=== PATIENT | female | born 1935 | race Caucasian/White ===

== ENCOUNTER 2016-03-22 17:53 | Inpatient (IN) | payer MEDICARE, BC ==
[2016-03-22] MEDS ORDERED: LEVALBUTEROL NEB (CONC) 1.25 MG/0.5 ML AMP INHALATION STA (18:18)
[2016-03-22] MEDS ORDERED: IPRATROPIUM 0.5 MG/2.5 ML NEBU INHALATION STA (18:36)
[2016-03-22] MEDS ORDERED: LEVALBUTEROL NEB 1.25 MG/3 ML AMP INHALATION STA ×2 (18:36→19:58)
[2016-03-22] MEDS ORDERED: methylPREDNISolone SOD SUCCI 125 MG/2 ML VIAL IV STA (18:36)
[2016-03-22] MEDS ORDERED: LEVOFLOXACIN 750MG-D5W PMX 750 MG in DEXTROSE/WATER 1 150ML.BAG IVPB STA (18:36)
[2016-03-22] MEDS ORDERED: ASPIRIN 81 MG CHEW PO STA (18:38)
[2016-03-22] MEDS ORDERED: NITROGLYCERIN OINT 1 INCH/GM PACKET TOPICAL STA (18:39)
[2016-03-22] MEDS ORDERED: FUROSEMIDE 10 MG/ML 4 ML VIAL IV STA (18:39)
[2016-03-22] MEDS ORDERED: DILTIAZEM 125 MG in SODIUM CHLORIDE 0.9% 100 ML IV ONE (18:39)
[2016-03-22 18:55] LABS: Basophils # (A) 0.1 k/uL (0-0.2); Basophils % (A) 1 %; CH 30.4; CHCM 33.1; Eosinophils # (A) 0.1 k/uL (0-0.7); Eosinophils % (A) 1 %; HCT 52.8 % (34.0-46.0); HDW 2.45; HGB 17.4 gm/dL (11.4-16.0); Luc # (Auto) 0.24; Luc % (Auto) 2; Lymphocytes # (A) 1.4 k/uL (1.0-4.8); Lymphocytes % (A) 13 %; MCH 30.4 pg (25.0-35.0); MCV 92.3 fL (80.0-100.0); Mean Platelet Volume 6.9; Monocytes # (A) 0.6 k/uL (0-1.0); Monocytes % (A) 6 %; Neutrophils # (A) 8.3 k/uL (1.3-7.7); Neutrophils % (A) 77 %; RBC 5.72 m/uL (3.80-5.40); RDW 14.4 % (11.5-15.5); WBC 10.8 k/uL (3.8-10.6); WBC (Perox) 11.11
[2016-03-22] MEDS: MAGNESIUM SULFATE-D5W PMX 1 GM in DEXTROSE/WATER 1 100ML.BAG IVPB SCH ×2 (19:02→20:36)
[2016-03-22 19:05] LABS: Calcium 9.5 mg/dL (8.4-10.2); Magnesium 2.1 mg/dL (1.6-2.3); Potassium 4.4 mmol/L (3.5-5.1); Total Bilirubin 0.9 mg/dL (0.2-1.3); Total Protein 7.4 g/dL (6.3-8.2)
--- NOTE | 2016-03-22 19:18 | XR ---
EXAMINATION TYPE: XR chest 1V portable DATE OF EXAM: 03/22/2016 6:49 PM COMPARISON: NONE HISTORY: Dyspnea TECHNIQUE: Single frontal view of the chest is obtained. FINDINGS: There is no focal air space opacity, pleural effusion, or pneumothorax seen. The cardiac silhouette size is within normal limits. The osseous structures are intact. IMPRESSION: No acute process.
[2016-03-22 19:24] LABS: INR 1.3 (<1.1); Partial Thromboplastin Time 26.6 sec (22.0-30.0)
[2016-03-22 19:32] LABS: Creatine Kinase MB 2.1 ng/mL (0.0-2.4); Troponin I 0.018 ng/mL (0.000-0.034)
[2016-03-22] MEDS ORDERED: MORPHINE SULFATE 2 MG/ML SYRINGE IVP STA (19:58)
--- NOTE | 2016-03-22 22:22 | ED ---
SOB HPI - General Chief Complaint: Shortness of Breath Stated Complaint: Poss Pneumonia Time Seen by Provider: 03/22/16 18:30 Source: patient Mode of arrival: wheelchair Limitations: no limitations - History of Present Illness Initial Comments: This 80-year-old white female presents with a complaint of some shortness of breath. She states that it came on yesterday. She's had a cough with clear production. She denies any fever or chest pain. Today she had severe shortness of breath and even conversational dyspnea with wheezing. She does have a long history of pneumonia as well as COPD. She also said some lower extremity swelling/edema but no pain. She does take home nebulized treatments with some relief. She does not smoke tobacco anymore. She does have a history of atrial fibrillation and also presents with a 2 fibrillation with rapid ventricular response. Her pulse ox on arrival is 93%. She also complains of occasional pain to her left upper abdomen. No other complaints or modifying factors. - Related Data Home Medications Medication Instructions Recorded Confirmed Atenolol [Tenormin] 25 mg PO DAILY 02/13/14 03/22/16 Ezetimibe/Simvastatin [Vytorin 1 tab PO DAILY 02/13/14 03/22/16 10-20 mg Tablet] amLODIPine [Norvasc] 5 mg PO DAILY 02/13/14 03/22/16 Warfarin [Coumadin] 2 mg PO Q48H 08/29/15 03/22/16 Gabapentin [Neurontin] 100 mg PO BID 11/14/15 03/22/16 Warfarin Sodium [Warfarin Sodium] 1 mg PO Q48H 11/14/15 03/22/16 Benzonatate [Tessalon Perles] 100 mg PO BID PRN 03/22/16 03/22/16 Furosemide [Lasix] 40 mg PO DAILY 03/22/16 03/22/16 Allergies Allergy/AdvReac Type Severity Reaction Status Date / Time No Known Allergies Allergy Verified 03/22/16 18:11 Review of Systems ROS Statement: Those systems with pertinent positive or pertinent negative responses have been documented in the HPI. ROS Other: All systems not noted in ROS Statement are negative. Past Medical History Past Medical History: Atrial Fibrillation, Chest Pain / Angina, Heart Failure, COPD, CVA/TIA, Deep Vein Thrombosis (DVT), Hyperlipidemia, Hypertension, Pneumonia Additional Past Medical History / Comment(s): Hx. 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, PAST HX TIA 1991, URINARY INCONTINENCE, ABD HERNIA,DIVERTICULITIS, had stroke 02-13-14-still some left sided weakness History of Any Multi-Drug Resistant Organisms: None Reported Past Surgical History: Adenoidectomy, Appendectomy, Breast Surgery, Heart Catheterization, Hysterectomy, Tonsillectomy Additional Past Surgical History / Comment(s): CATARACTS-LENS IMPLANTS, CYSTOCELE/RECTOCELE AND HOLE IN BOWEL REPAIRED, LT HAND THUMB SX, BREAST BIOPSY- NEG Past Anesthesia/Blood Transfusion Reactions: No Reported Reaction Past Psychological History: Anxiety Additional Psychological History / Comment(s): related to procedure Smoking Status: Former smoker Past Alcohol Use History: None Reported Additional Past Alcohol Use History / Comment(s): 1/2 PPD Past Drug Use History: None Reported - Past Family History Father Family Medical History: Cancer, Myocardial Infarction ([place]) Additional Family Medical History / Comment(s): ANEURYSMS, BONE CA. AGE 75 FROM ANEURYSM IN HEAD Mother Family Medical History: Congestive Heart Failure (CHF) Additional Family Medical History / Comment(s): AT AGE 84 General Exam - General Exam Comments Initial Comments: GENERAL: The patient is well nourished and well hydrated. VITAL SIGNS: Heart rate, blood pressure, respiratory rate reviewed as recorded in nurse's notes. EYES: Pupils are round and reactive. Extraocular movements are intact. No conjunctival / lid redness or swelling. ENT: No external evidence of injury, swelling, or ecchymosis. Airway is patent. Throat is clear. NECK: Nontender. No swelling or evidence of injury. No subcutaneous emphysema. Trachea is midline. No thyroid mass. HEART: Regular rate and rhythm. Good peripheral pulses. LUNGS/CHEST: There is wheezing noted to the bilateral chest which is fairly significant. Patient is tachypneic. No ecchymosis, subcutaneous emphysema, or tenderness. ABDOMEN: There is slight tenderness present to the left upper quadrant. No palpable masses or organomegaly. No peritoneal signs. No abdominal wall swelling or ecchymosis. EXTREMITIES: No extremity tenderness. Normal muscle tone and function. No thoracolumbar tenderness. There is mild edema lower extremities. NEUROLOGIC: Sensation is grossly intact. Cranial nerve exam reveals face is symmetrical, tongue is midline, speech is clear. SKIN: No abrasions or ecchymosis is noted. No induration or masses noted. PSYCHIATRIC: Alert and oriented. Appropriate behavior and judgment. Limitations: no limitations Course Vital Signs 03/22/16 03/22/16 03/22/16 18:09 18:24 18:35 Temperature 97.7 F Pulse Rate 142 H 145 H 146 H Respiratory 28 H Rate Blood Pressure 127/78 O2 Sat by Pulse 93 L Oximetry 03/22/16 03/22/16 03/22/16 18:38 18:58 19:15 Temperature Pulse Rate 141 H 148 H 170 H Respiratory 26 H Rate Blood Pressure 190/90 O2 Sat by Pulse 92 L Oximetry 03/22/16 03/22/16 03/22/16 19:54 20:10 20:30 Temperature Pulse Rate 151 H 139 H 144 H Respiratory 34 H Rate Blood Pressure 105/51 O2 Sat by Pulse 94 L Oximetry 03/22/16 20:49 Temperature Pulse Rate 148 H Respiratory 28 H Rate Blood Pressure 97/60 O2 Sat by Pulse 93 L Oximetry Medical Decision Making - Medical Decision Making The patient was seen and examined. All diagnostics were reviewed. 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 The EKG shows atrial fibrillation with rapid ventricular response at a heart rate of 149. There is nonspecific ST-T wave changes noted. The QRS duration is 92 and the QTc interval is 469. A chest x-ray was done which does not show any acute significant abnormalities. The laboratories reviewed as well. The BNP is fairly elevated at 2530. She receives Solu-Medrol, IV Levaquin, and multiple breathing treatments of Xopenex and Atrovent. She also received some magnesium. She is feeling improved on recheck. She later did complain of some left upper quadrant abdominal pain and receives some morphine and some moderate relief. It is felt primarily that she has an exacerbation of COPD. She also has A. fib with RVR. She was started on Cardizem drip. Is felt as though she would require admission to hospital for further treatment. She may have a degree of congestive heart failure component as well. The case will be discussed with medicine in the near future and patient will be admitted to the cardiac specialty unit. - Lab Data Result diagrams: 03/22/16 18:30 03/22/16 18:30 Lab Results 12/18/16 12/18/16 12/18/16 Range/Units 18:30 18:30 18:30 WBC 10.8 H (3.8-10.6) k/uL RBC 5.72 H (3.80-5.40) m/uL Hgb 17.4 H (11.4-16.0) gm/dL Hct 52.8 H (34.0-46.0) % MCV 92.3 (80.0-100.0) fL MCH 30.4 (25.0-35.0) pg MCHC 33.0 (31.0-37.0) g/dL RDW 14.4 (11.5-15.5) % Plt Count 239 (150-450) k/uL Neutrophils % 77 % Lymphocytes % 13 % Monocytes % 6 % Eosinophils % 1 % Basophils % 1 % Neutrophils # 8.3 H (1.3-7.7) k/uL Lymphocytes # 1.4 (1.0-4.8) k/uL Monocytes # 0.6 (0-1.0) k/uL Eosinophils # 0.1 (0-0.7) k/uL Basophils # 0.1 (0-0.2) k/uL PT (9.0-12.0) sec INR (<1.1) APTT (22.0-30.0) sec Sodium 139 (137-145) mmol/L Potassium 4.4 (3.5-5.1) mmol/L Chloride 100 (98-107) mmol/L Carbon Dioxide 26 (22-30) mmol/L Anion Gap 13 mmol/L BUN 21 H (7-17) mg/dL Creatinine 1.10 H (0.52-1.04) mg/dL Est GFR (MDRD) Af Amer 58 (>60 ml/min/1.73 sqM) Est GFR (MDRD) Non-Af 48 (>60 ml/min/1.73 sqM) Glucose 108 H (74-99) mg/dL Calcium 9.5 (8.4-10.2) mg/dL Magnesium 2.1 (1.6-2.3) mg/dL Total Bilirubin 0.9 (0.2-1.3) mg/dL AST 32 (14-36) U/L ALT 30 (9-52) U/L Alkaline Phosphatase 83 (38-126) U/L Total Creatine Kinase 439 H (30-135) U/L CK-MB (CK-2) 2.1 (0.0-2.4) ng/mL CK-MB (CK-2) Rel Index 0.5 Troponin I 0.018 (0.000-0.034) ng/mL NT-Pro-B Natriuret Pep pg/mL Total Protein 7.4 (6.3-8.2) g/dL Albumin 4.2 (3.5-5.0) g/dL 03/22/16 03/22/16 Range/Units 18:30 18:30 WBC (3.8-10.6) k/uL RBC (3.80-5.40) m/uL Hgb (11.4-16.0) gm/dL Hct (34.0-46.0) % MCV (80.0-100.0) fL MCH (25.0-35.0) pg MCHC (31.0-37.0) g/dL RDW (11.5-15.5) % Plt Count (150-450) k/uL Neutrophils % % Lymphocytes % % Monocytes % % Eosinophils % % Basophils % % Neutrophils # (1.3-7.7) k/uL Lymphocytes # (1.0-4.8) k/uL Monocytes # (0-1.0) k/uL Eosinophils # (0-0.7) k/uL Basophils # (0-0.2) k/uL PT 13.0 H (9.0-12.0) sec INR 1.3 (<1.1) APTT 26.6 (22.0-30.0) sec Sodium (137-145) mmol/L Potassium (3.5-5.1) mmol/L Chloride (98-107) mmol/L Carbon Dioxide (22-30) mmol/L Anion Gap mmol/L BUN (7-17) mg/dL Creatinine (0.52-1.04) mg/dL Est GFR (MDRD) Af Amer (>60 ml/min/1.73 sqM) Est GFR (MDRD) Non-Af (>60 ml/min/1.73 sqM) Glucose (74-99) mg/dL Calcium (8.4-10.2) mg/dL Magnesium (1.6-2.3) mg/dL Total Bilirubin (0.2-1.3) mg/dL AST (14-36) U/L ALT (9-52) U/L Alkaline Phosphatase (38-126) U/L Total Creatine Kinase (30-135) U/L CK-MB (CK-2) (0.0-2.4) ng/mL CK-MB (CK-2) Rel Index Troponin I (0.000-0.034) ng/mL NT-Pro-B Natriuret Pep 2530 pg/mL Total Protein (6.3-8.2) g/dL Albumin (3.5-5.0) g/dL Disposition Clinical Impression: Atrial fibrillation with rapid ventricular response, COPD exacerbation, Elevated brain natriuretic peptide (BNP) level, CHF (congestive heart failure), Abdominal pain Disposition: ADMITTED IP TO THIS HOSP Condition: Fair Time of Disposition: 22:21 Decision Date: 03/22/16 Decision Time: 22:21
[2016-03-22] MEDS ORDERED: BENZONATATE 100 MG CAP PO PRN (22:27)
[2016-03-22] MEDS ORDERED: MORPHINE SULFATE 4 MG/ML SYRINGE IVP STA (22:27)
[2016-03-22] MEDS ORDERED: WARFARIN 2 MG TAB PO SCH (22:30)
[2016-03-22 23:46] LABS: Glucose,Whole Blood 216 mg/dL (75-99)
[2016-03-22] MEDS: LEVALBUTEROL NEB 1.25 MG/3 ML AMP INHALATION SCH (23:56)
[2016-03-23 00:46] LABS: Troponin I 0.016 ng/mL (0.000-0.034)
[2016-03-23] MEDS: methylPREDNISolone SOD SUCCI 125 MG/2 ML VIAL IV SCH ×4 (01:05→16:58)
[2016-03-23] MEDS: INSULIN LISPRO (humaLOG) 300 UNIT/3 ML VIAL SQ SCH ×5 (01:06→22:04)
[2016-03-23 01:12] LABS: Appearance,Urine Cloudy (Clear); Bacteria,Urine Rare /hpf; Bilirubin,Urine Negative (Negative); Glucose,Urine (UA) Negative (Negative); Ketones,Urine Negative (Negative); Leukocyte Esterase,Urine Negative (Negative); Mucus,Urine Moderate /hpf; Nitrite,Urine Negative (Negative); Particle Count 13839; Protein,Urine Trace (Negative); RBC,Urine 3 /hpf (0-5); Specific Gravity,Urine 1.013 (1.001-1.035); Squamous Epithelial Cell,Urine 2 /hpf (0-4); UA Billing (MACRO vs. MICRO) MICRO; Urobilinogen,Urine <2.0 mg/dL (<2.0); WBC,Urine 3 /hpf (0-5)
[2016-03-23] MEDS: LEVALBUTEROL NEB 1.25 MG/3 ML AMP INHALATION SCH ×6 (03:31→23:25)
[2016-03-23 06:31] LABS: Glucose,Whole Blood 163 mg/dL (75-99)
[2016-03-23] MEDS ORDERED: INSULIN LISPRO (humaLOG) 300 UNIT/3 ML VIAL SQ SCH (07:30)
[2016-03-23 07:32] LABS: Troponin I 0.041 ng/mL (0.000-0.034)
[2016-03-23] MEDS: BUDESONIDE 0.5 MG/2 ML NEBU INHALATION SCH ×2 (07:57→20:07)
[2016-03-23] MEDS: amLODIPine 5 MG TAB PO SCH (08:12)
[2016-03-23] MEDS: GABAPENTIN 100 MG CAP PO SCH ×2 (08:12→20:56)
[2016-03-23] MEDS: EZETIMIBE 10 MG TAB PO SCH (08:12)
[2016-03-23] MEDS: ATORVASTATIN 10 MG TAB PO SCH (08:12)
[2016-03-23] MEDS: ATENOLOL 25 MG TAB PO SCH (08:12)
[2016-03-23] MEDS: FUROSEMIDE 10 MG/ML 4 ML VIAL IV SCH ×2 (08:13→20:57)
--- NOTE | 2016-03-23 08:58 | P.CRDCN ---
History of Present Illness Consult date: 03/23/16 Requesting physician: Kwame Mohan Consult reason: atrial fibrillation Chief complaint: Shortness of breath History of present illness: This is a pleasant 80-year-old female with known history of chronic persistent atrial fibrillation, hypertension, hyperlipidemia, COPD, prior smoking history, history of DVT and prior CVA. She presents to the hospital with symptoms of shortness of breath. According to the patient, she's been doing fairly well at home overall, Wednesday night she states that she be early short of breath. Throughout the day Wednesday she states there was not much improvement but she was quite stubborn and did not want to come to the hospital , ultimately she states she could heart the breathing at all and was brought in for further evaluation. Patient denies palpitations, denies chest pain. EKG on admission here showed atrial fibrillation with a rapid ventricular response. Chest x-ray did not reveal any acute process. Laboratory data was reviewed, WBC 10.8, hemoglobin 17.4, INR 1.3, BUN 21, creatinine 1.1, troponin 0.018, 0.016, 0. 041. Blood pressure on arrival 127/78, heart rate 140s, 93% on room air, respirations 28. The pressure this morning 100/60, a heart rate 80, 93% on 2 L. At the time of my examination this morning, patient is still quite short of breath, extremely wheezy. Currently on IV Cardizem drip at 5 mg per hour, heart rate in the 80s. 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, URINARY INCONTINENCE, ABD HERNIA,DIVERTICULITIS History of Any Multi-Drug Resistant Organisms: None Reported Past Surgical History: Adenoidectomy, Appendectomy, Breast Surgery, Heart Catheterization, Hysterectomy, Tonsillectomy Additional Past Surgical History / Comment(s): CATARACTS-LENS IMPLANTS, CYSTOCELE/RECTOCELE AND HOLE IN BOWEL REPAIRED, LT HAND THUMB SX, BREAST BIOPSY- NEG Past Anesthesia/Blood Transfusion Reactions: No Reported Reaction Past Psychological History: Anxiety Additional Psychological History / Comment(s): related to procedure Smoking Status: Former smoker Past Alcohol Use History: None Reported Additional Past Alcohol Use History / Comment(s): 1/2 PPD Past Drug Use History: None Reported - Past Family History Father Family Medical History: Cancer, Myocardial Infarction ([place]) Additional Family Medical History / Comment(s): ANEURYSMS, BONE CA. AGE 75 FROM ANEURYSM IN HEAD Mother Family Medical History: Congestive Heart Failure (CHF) Additional Family Medical History / Comment(s): AT AGE 84 Medications and Allergies Home Medications Medication Instructions Recorded Confirmed Type Atenolol [Tenormin] 25 mg PO DAILY 02/13/14 03/22/16 History Ezetimibe/Simvastatin [Vytorin 1 tab PO DAILY 02/13/14 03/22/16 History 10-20 mg Tablet] amLODIPine [Norvasc] 5 mg PO DAILY 02/13/14 03/22/16 History Warfarin [Coumadin] 2 mg PO Q48H 08/29/15 03/22/16 History Gabapentin [Neurontin] 100 mg PO BID 11/14/15 03/22/16 History Warfarin Sodium [Warfarin Sodium] 1 mg PO Q48H 11/14/15 03/22/16 History Benzonatate [Tessalon Perles] 100 mg PO BID PRN 03/22/16 03/22/16 History Furosemide [Lasix] 40 mg PO DAILY 03/22/16 03/22/16 History Allergies Allergy/AdvReac Type Severity Reaction Status Date / Time No Known Allergies Allergy Verified 03/23/16 08:40 Physical Exam Vitals: Vital Signs Temp Pulse Pulse Resp BP Pulse Ox 03/23/16 08:00 97.6 F 85 18 99/64 93 L 03/23/16 07:58 92 03/23/16 06:27 18 97 03/23/16 04:00 98.6 F 84 18 96/47 95 03/23/16 00:09 96 03/22/16 23:56 91 03/22/16 23:55 97.0 F L 94 22 97/48 96 03/22/16 23:15 97.0 F L 94 22 97/48 96 Intake and Output 03/22/16 03/23/16 03/23/16 22:59 06:59 14:59 Output Total 225 Balance -225 Output: Urine 225 Other: Voiding Method Indwelling Catheter Indwelling Catheter Weight 80.4 kg PHYSICAL EXAMINATION: HEENT: Head is atraumatic, normocephalic. Pupils equal, round. Neck is supple. There is elevated jugular venous pressure. HEART EXAMINATION: Heart S1 and S2 irregular irregular systolic murmur is heard CHEST EXAMINATION: Lungs reveal decreased air exchange throughout with scattered coarse wheezing throughout ABDOMEN: Soft, nontender. Bowel sounds are heard. No organomegaly noted. EXTREMITIES: 2+ peripheral pulses with trace evidence of peripheral edema and no calf tenderness noted. NEUROLOGIC patient is awake, alert and oriented -3. . Results 03/22/16 18:30 03/22/16 18:30 Cardiac Enzymes 03/22/16 03/23/16 Range/Units 23:53 06:03 CK-MB (CK-2) 2.0 3.0 H* (0.0-2.4) ng/mL Troponin I 0.016 0.041 H* (0.000-0.034) ng/mL Current Medications Generic Name Dose Route Start Last Admin Trade Name Freq PRN Reason Stop Dose Admin Albuterol/Ipratropium 3 ml 03/22/16 22:22 Duoneb 0.5 Mg-3 Mg/3 Ml Soln INHALATION RT-Q4H PRN Shortness Of Breath Or Wheezing Amlodipine Besylate 5 mg 03/23/16 09:00 03/23/16 08:12 Norvasc PO 5 mg DAILY GENIE Administration Aspirin 325 mg 03/23/16 09:00 03/23/16 08:12 Aspirin PO 325 mg DAILY GENIE Administration Atenolol 25 mg 03/23/16 09:00 03/23/16 08:12 Tenormin PO 25 mg DAILY GENIE Administration Atorvastatin Calcium 10 mg 03/23/16 09:00 03/23/16 08:12 Lipitor PO 10 mg DAILY GENIE Administration Benzonatate 100 mg 03/22/16 22:27 Tessalon Perles PO BID PRN Cough Budesonide 0.5 mg 03/23/16 08:00 03/23/16 07:57 Pulmicort INHALATION 0.5 mg RT-BID GENIE Administration Ezetimibe 10 mg 03/23/16 09:00 03/23/16 08:12 Zetia PO 10 mg DAILY GENIE Administration Furosemide 40 mg 03/23/16 09:00 03/23/16 08:13 Lasix IV 40 mg BID GENIE Administration Gabapentin 100 mg 03/23/16 09:00 03/23/16 08:12 Neurontin PO 100 mg BID GENIE Administration Diltiazem HCl 125 mg/ Sodium 125 mls @ 5 mls/hr 03/22/16 18:39 03/22/16 18:57 Chloride IV 03/23/16 18:38 5 mg/hr .Q24H ONE 5 mls/hr Protocol Administration 5 MG/HR Levofloxacin 750 mg/ IV 150 mls @ 100 mls/hr 03/23/16 21:00 Solution IVPB HS GENIE Insulin Human Lispro 0 unit 03/23/16 00:05 03/23/16 06:33 Humalog SQ 3 unit ACHS GENIE Administration Protocol Levalbuterol HCl 1.25 mg 03/23/16 00:00 03/23/16 07:57 Xopenex Nebulized INHALATION 1.25 mg RT-Q4H GENIE Administration Methylprednisolone Sodium Succinate 60 mg 03/23/16 00:00 03/23/16 06:31 Solu-Medrol IV 60 mg Q6HR GENIE Administration Morphine Sulfate 2 mg 03/22/16 22:25 Morphine Sulfate (Inj) IVP Q2H PRN Pain Warfarin Sodium 1 mg 03/24/16 18:00 Coumadin PO Q48H GENIE Warfarin Sodium 2 mg 03/23/16 18:00 Coumadin PO Q48H GENIE Intake and Output 03/22/16 03/23/16 03/23/16 22:59 06:59 14:59 Output Total 225 Balance -225 Output: Urine 225 Other: Voiding Method Indwelling Catheter Indwelling Catheter Weight 80.4 kg EKG Interpretations (text) EKG shows atrial fibrillation with a rapid ventricular Assessment and Plan Plan: Assessment and plan #1 symptoms of sudden onset of shortness of breath, possible exacerbation of COPD. #2 atrial fibrillation with rapid ventricular response #3 history of chronic persistent atrial fibrillation, on Coumadin, INR subtherapeutic at 1.3. #4 hypertension # 5 hyperlipidemia #6 cardiac catheterization performed in April of last year revealed normal coronary arteries. #7 history of COPD #8 history of prior CVA #9 history of prior DVT #10 prior history of smoking #11 congestive heart failure, most recent echo performed in 2013 revealed a normal ejection fraction, likely diastolic in nature. #12 abnormal troponins, not consistent with acute coronary syndrome, likely secondary to oxygen supply and demand mismatch Plan We will obtain a Echo cardiac gram with Doppler study, free T4 and TSH level will also be obtained. Patient is currently receiving updraft treatments along with IV Lasix. We will start the patient on IV heparin, continue Coumadin to reach an INR in the range of 2-2.5. Decrease aspirin 81 mg daily. Further recommendations to follow. DNP note has been reviewed, I agree with a documented findings and plan of care. Patient was seen and examined.
[2016-03-23] MEDS ORDERED: HEPARIN SODIUM,PORCINE 5,000 UNIT/ML 1 ML VIAL IV PRN (08:59)
[2016-03-23] MEDS ORDERED: HEPARIN SODIUM,PORCINE 5,000 UNIT/ML 1 ML VIAL IV ONE (08:59)
[2016-03-23] MEDS ORDERED: ATORVASTATIN 20 MG TAB PO SCH (09:00)
[2016-03-23] MEDS ORDERED: ASPIRIN 325 MG TAB PO SCH (09:00)
[2016-03-23 09:20] LABS: Basophils % (A) 0 %; CHCM 32.2; Eosinophils # (A) 0.1 k/uL (0-0.7); Eosinophils % (A) 1 %; HCT 47.5 % (34.0-46.0); HDW 2.51; HGB 15.4 gm/dL (11.4-16.0); Luc % (Auto) 1; Lymphocytes # (A) 0.7 k/uL (1.0-4.8); Lymphocytes % (A) 8 %; MCH 30.3 pg (25.0-35.0); MCHC 32.3 g/dL (31.0-37.0); MCV 93.7 fL (80.0-100.0); Mean Platelet Volume 6.9; Monocytes # (A) 0.2 k/uL (0-1.0); Monocytes % (A) 2 %; Neutrophils # (A) 8.4 k/uL (1.3-7.7); Neutrophils % (A) 88 %; RBC 5.06 m/uL (3.80-5.40); RDW 14.3 % (11.5-15.5); WBC 9.5 k/uL (3.8-10.6); WBC (Perox) 9.36
[2016-03-23 09:23] LABS: INR 1.3 (<1.1); Partial Thromboplastin Time 28.1 sec (22.0-30.0); Prothrombin Time 13.2 sec (9.0-12.0)
[2016-03-23] MEDS: HEPARIN SODIUM,PORCINE/D5W PMX 25,000 UNIT in DEXTROSE/WATER 1 500ML.BAG IV SCH (10:36)
[2016-03-23 11:50] LABS: Glucose,Whole Blood 175 mg/dL (75-99)
--- NOTE | 2016-03-23 13:16 | ECHOF ---
Referral Reason:sob MEASUREMENTS -------- HEIGHT: 154.9 cm WEIGHT: 83.5 kg BP: 96/47 RVIDd: 2.9 cm (< 3.3) IVSd: 0.9 cm (0.6 - 1.1) LVIDd: 5.0 cm (3.9 - 5.3) LVPWd: 1.0 cm (0.6 - 1.1) IVSs: 1.7 cm LVIDs: 3.1 cm LVPWs: 1.7 cm LA Diam: 3.9 cm (2.7 - 3.8) LAESV Index (A-L): 52.86 ml/m Ao Diam: 3.1 cm (2.0 - 3.7) AV Cusp: 1.5 cm (1.5 - 2.6) LA Diam: 3.3 cm (2.7 - 3.8) MV EXCURSION: 16.659 mm (> 18.000) MV EF SLOPE: 182 mm/s (70 - 150) EPSS: 0.3 cm MV E Dhruv: 1.00 m/s MV DecT: 166 ms MV A Dhruv: 0.37 m/s MV E/A Ratio: 2.68 RAP: 5.00 mmHg RVSP: 39.21 mmHg FINDINGS -------- Atrial fibrillation. This was a technically good study. Left ventricular wall thickness is normal. Overall left ventricular systolic function is normal with, an EF between 55 - 60 %. The right ventricle is normal in size. LA is severely dilated >40 ml/m2 RA appears enlarged. Aortic valve is trileaflet and is mildly thickened. The mitral valve leaflets are mildly thickened. Mild mitral annular calcification present. Mild mitral regurgitation is present. Mild tricuspid regurgitation present. There is mild pulmonary hypertension. The right ventricular systolic pressure, as measured by Doppler, is 39.21mmHg. Pulmonic valve appears structurally normal. The aortic root size is normal. Normal inferior vena cava with normal inspiratory collapse consistent with estimated right atrial pressure of 5 mmHg. The pericardium is normal. CONCLUSIONS -------- 1. Atrial fibrillation. 2. Mild mitral annular calcification present. 3. Mild mitral regurgitation is present. 4. Mild tricuspid regurgitation present. 5. There is mild pulmonary hypertension. 6. The right ventricular systolic pressure, as measured by Doppler, is 39.21mmHg. 7. Pulmonic valve appears structurally normal. 8. The aortic root size is normal. 9. The pericardium is normal. 10. This was a technically good study. 11. Left ventricular wall thickness is normal. 12. Overall left ventricular systolic function is normal with, an EF between 55 - 60 %. 13. The right ventricle is normal in size. 14. LA is severely dilated >40 ml/m2 15. RA appears enlarged. 16. Aortic valve is trileaflet and is mildly thickened. 17. The mitral valve leaflets are mildly thickened. TANK TENDER: Madhuri Stallings RDCS
[2016-03-23 15:25] LABS: Hemoglobin A1C 5.7 % (4.2-6.1)
--- NOTE | 2016-03-23 16:02 | CONS ---
DATE OF CONSULTATION: 03/23/2016 REASON FOR CONSULTATION: Shortness of breath and wheezing. HISTORY OF PRESENTING ILLNESS: Ms. Sandie Virk is a 80-year-old female who is seen, evaluated and examined on the sixth floor. Patient has clearly audible wheezing, has shortness of breath, but feels better today compared to yesterday. This patient presented into the emergency department and was seen and examined over there and has been admitted to the hospital. She has been more short of breath for about a day to two days' duration, which has been progressive since prior to coming into the hospital. She has cough with some clear phlegm production as well. Denies any fever and chills. Denies any chest pain. In addition to above, she has been having some intermittent palpitation. She has increased swelling of the lower extremity as well lately. With those problems, she came into the hospital for further evaluation. Past medical history is significant for: 1. Chronic atrial fibrillation. 2. Chest pain, angina. 3. Congestive heart failure, acute on chronic diastolic heart failure. 4. History of deep venous thrombosis. 5. History of severe chronic obstructive pulmonary disease. 6. Dyslipidemia. 7. Hypertension, hypertensive cardiovascular disease. 8. Pneumonia. 9. History of TIA in 2001. 10. History of blood clot in spleen. 11. Urinary incontinence. 12. Abdominal hernia. 13. Diverticulosis. 14. Stroke with residual left-sided weakness. PAST SURGICAL HISTORY: Significant for appendectomy, adenoidectomy, cataract extraction with intraocular lens implant, cystocele and rectocele repair, bowel perforation, tongue surgery, history of breast biopsy. ALLERGIES: No known drug allergy. Medications at home include: 1. Lasix 40 mg daily. 2. Tessalon Perles 100 mg a day. 3. Coumadin 1 mg every other day alternating with 2 mg. 4. Norvasc 5 mg daily. 5. Neurontin 100 mg 2 times a day. 6. Vytorin 1 tablet daily. 7. Tenormin 25 mg daily. FAMILY HISTORY AND SOCIAL HISTORY: Otherwise unremarkable and noncontributory. Denies any ethanol consumption. Used to smoke 1/2 pack per day close to 25 to 30 years. Both parents are . Strong history of bone cancer and aneurysm on paternal side with history of congestive heart failure on maternal side. Current medications while in the hospital include: 1. DuoNeb updraft 4 times as needed. 2. Norvasc 5 mg daily. 3. Aspirin 325 mg daily. 4. Atenolol 25 mg daily. 5. Lipitor 10 mg daily. 6. Tessalon Perles 100 mg daily. 7. Pulmicort 2 times a day. 8. Also on Zetia 10 mg daily. 9. Lasix 40 mg daily. 10. Neurontin 100 mg p.o. 2 times a day. 11. Heparin drip as per protocol. 12. Sliding scale insulin. 13. Humalog. 14. Xopenex unit dose updraft 4 times a day. 15. Levaquin 750 mg daily. 16. Solu-Medrol 60 q.6 hourly. 17. Coumadin 1 mg alternate. On examination, her most recent vitals include blood pressure is 120/78, respiratory rate 18, pulse 76, temperature 98, saturation 98% on 2 liters oxygen. HEENT:, Normocephalic. Pharynx is clear. NECK: Supple without lymphadenopathy, jugular venous distention or carotid bruit. LUNGS: Bilateral inspiratory, expiratory wheezing and rhonchi are present. HEART: Irregularly irregular. S1 and S2 audible. ABDOMEN: Soft. No rebound or rigidity. EXTREMITIES: +1 peripheral pulses. NEUROLOGICAL EXAMINATION: Otherwise, awake and alert. Laboratory data reviewed. Medications reviewed. Urinalysis: Cloudy with rare bacteria, moderate mucus, negative for leukocyte esterase and nitrites. White cell count 9,500, hemoglobin 15, hematocrit 47, platelet count 247,000. PT, INR, PTT within normal limits. The CK is 356, CK-MB is 3.0. Urinalysis is unremarkable as above. The chest x-ray performed 03/22/2016 revealed no acute processes. Echocardiogram performed earlier this morning reviewed and compared with the prior revealed atrial fibrillation, MR, TR, mild to moderate pulmonary hypertension with right ventricular pressure of 39. IMPRESSION: 1. Acute chronic obstructive pulmonary disease exacerbation. 2. Tracheobronchitis. Will continue steroids, bronchodilators, and antibiotics in the form of doxycycline 100 mg p.o. 2 times a day. 3. Other issues include atrial flutter/fibrillation and rapid ventricular response. 4. Congestive heart failure, related to above, likely acute on chronic diastolic heart failure. 5. Pulmonary hypertension likely related to chronic obstructive pulmonary disease. Plan and recommendation is as above. Continue supportive care. Follow clinical course closely. Further recommendations pending.
[2016-03-23 16:50] LABS: Glucose,Whole Blood 165 mg/dL (75-99)
[2016-03-23] MEDS: WARFARIN 2 MG TAB PO SCH (16:57)
[2016-03-23] MEDS: DOXYCYCLINE 50 MG CAP PO SCH (20:56)
[2016-03-23] MEDS ORDERED: LEVOFLOXACIN 750MG-D5W PMX 750 MG in DEXTROSE/WATER 1 150ML.BAG IVPB SCH (21:00)
[2016-03-23 21:18] LABS: Glucose,Whole Blood 157 mg/dL (75-99)
[2016-03-24] MEDS: LEVALBUTEROL NEB 1.25 MG/3 ML AMP INHALATION SCH ×6 (03:29→23:38)
[2016-03-24] MEDS: methylPREDNISolone SOD SUCCI 125 MG/2 ML VIAL IV SCH ×5 (03:37→23:38)
[2016-03-24] MEDS: MORPHINE SULFATE 2 MG/ML SYRINGE IVP PRN (03:45)
[2016-03-24 06:44] LABS: Glucose,Whole Blood 156 mg/dL (75-99)
[2016-03-24] MEDS: INSULIN LISPRO (humaLOG) 300 UNIT/3 ML VIAL SQ SCH ×4 (06:48→21:21)
[2016-03-24 07:14] LABS: Basophils # (A) 0.1 k/uL (0-0.2); Basophils % (A) 0 %; CH 30.4; CHCM 33.1; Eosinophils % (A) 0 %; HCT 45.9 % (34.0-46.0); HDW 2.55; Luc # (Auto) 0.18; Luc % (Auto) 1; Lymphocytes % (A) 4 %; MCH 30.1 pg (25.0-35.0); MCHC 32.6 g/dL (31.0-37.0); MCV 92.5 fL (80.0-100.0); Monocytes # (A) 1.2 k/uL (0-1.0); Monocytes % (A) 5 %; Neutrophils # (A) 24.1 k/uL (1.3-7.7); Neutrophils % (A) 91 %; RBC 4.96 m/uL (3.80-5.40); RDW 14.2 % (11.5-15.5); WBC (Perox) 26.23
[2016-03-24 07:21] LABS: WBC 26.6 k/uL (3.8-10.6)
[2016-03-24] MEDS: BUDESONIDE 0.5 MG/2 ML NEBU INHALATION SCH ×2 (08:02→20:18)
[2016-03-24 08:18] LABS: Manual Review Performed; Toxic Granulation Present
[2016-03-24] MEDS: ATORVASTATIN 10 MG TAB PO SCH (08:35)
[2016-03-24] MEDS: ATENOLOL 25 MG TAB PO SCH ×2 (08:35→21:20)
[2016-03-24] MEDS: EZETIMIBE 10 MG TAB PO SCH (08:35)
[2016-03-24] MEDS: FUROSEMIDE 10 MG/ML 4 ML VIAL IV SCH (08:35)
[2016-03-24] MEDS: amLODIPine 5 MG TAB PO SCH (08:35)
[2016-03-24] MEDS: GABAPENTIN 100 MG CAP PO SCH ×2 (08:35→21:19)
[2016-03-24] MEDS: DOXYCYCLINE 50 MG CAP PO SCH ×2 (08:35→21:20)
[2016-03-24] MEDS: HEPARIN SODIUM,PORCINE/D5W PMX 25,000 UNIT in DEXTROSE/WATER 1 500ML.BAG IV SCH (08:36)
[2016-03-24 11:19] LABS: INR 1.7 (<1.1); Prothrombin Time 16.8 sec (9.0-12.0)
[2016-03-24] MEDS: VERAPAMIL 40 MG TAB PO SCH ×3 (11:28→21:20)
[2016-03-24 12:03] LABS: Glucose,Whole Blood 140 mg/dL (75-99)
[2016-03-24] MEDS ORDERED: ONDANSETRON 4 MG/2 ML VIAL IVP PRN (14:25)
[2016-03-24] MEDS ORDERED: FUROSEMIDE 10 MG/ML 4 ML VIAL IV STA (14:26)
--- NOTE | 2016-03-24 14:47 | PN ---
Mrs. Virk is a lady with atrial fib, moderately rapid ventricular rate, COPD/bronchial asthma with exacerbation. Her breathing still is somewhat difficult. She is being seen by Dr. Coronel. She is also on steroids. Cardiac-borjas her rate control is fairly decent. I am recommending that we will continue current medications for rate control and give her an increased dose of Coumadin to help with the PT, INR. Her rhonchi seems to persist, but there is a modest improvement today. I am recommending that we increase the atenolol to 25 mg b.i.d. and add a small dose off verapamil 40 mg t.i.d. for rate control and discontinue the Cardizem drip. PT, INR is being addressed, but today we will give an additional dose if necessary after we check some additional labs. I am recommending that we optimize rate control, check PT, INR and await further input from Dr. Coronel.
[2016-03-24] MEDS: WARFARIN 1 MG TAB PO SCH (16:51)
--- NOTE | 2016-03-24 16:59 | PN ---
Ms. Sandie Virk is seen, evaluated and examined. Ms. Virk is a 80-year-old with severe COPD, emphysema, came into the hospital with atrial fibrillation with rapid ventricular response. She has been short of breath and with audible wheezing, still has dry, nonproductive cough. Her hemodynamic status is stable. Her white cell count jumped up to 26,600, hemoglobin and hematocrit 15 and 45. Her other vitals include blood pressure is 144/62, respiratory rate in mid 20s, heart rate 98, temperature 98, saturating 97%. HEENT: Otherwise unremarkable. NECK: Supple without any lymphadenopathy, jugular venous distention or carotid bruits. LUNGS: Bilateral inspiratory, expiratory wheezing and rhonchi are present with prolonged expiratory phase. HEART: Regular rate and rhythm. S1 and S2 audible. ABDOMEN: Soft. NEUROLOGICAL: Otherwise awake. White cell count 26,600, hemoglobin 15, hematocrit 45. Rest of the CBC is normal. PT, INR 16.1 and 0.7, PTT is 50.5. The other current medications reviewed and include: 1. DuoNeb unit dose updraft 4 times a day. 2. Tenormin 25 mg 2 times a day. 3. Lipitor 10 mg daily. 4. Tessalon Perles. 5. Pulmicort 0.5 mg 2 times a day. 6. Doxycycline 100 mg 2 times a day. 7. Zetia 10 mg daily. 8. Neurontin 100 mg p.o. 2 times a day. 9. Heparin drip as per protocol. 10. Also on levalbuterol updraft 4 times a day. 11. Levaquin 750 mg daily. 12. Solu-Medrol 60 every 6 hours. 13. Coumadin as per PT/INR. Chest x-ray last performed was 03/22/2016, reviewed. IMPRESSION: 1. Acute chronic obstructive pulmonary disease exacerbation. 2. Tracheobronchitis. 3. Atrial fibrillation with rapid ventricular response. 4. Congestive heart failure related to atrial fibrillation. Plan is to continue doxycycline and Levaquin for now. Will continue IV steroids and breathing treatments along with inhaled steroids. Noted leukocytosis likely related to multifactorial process, including the steroids. Would recommend a followup chest x-ray tomorrow. Continue other supportive care. Continue breathing treatments.
[2016-03-24 17:13] LABS: Glucose,Whole Blood 159 mg/dL (75-99)
--- NOTE | 2016-03-24 17:30 | HP ---
DATE OF ADMISSION: 03/22/2016 DATE OF SERVICE: 03/23/2016 CHIEF COMPLAINT: Severe shortness of breath. This is a 80-year-old white female who is known to have chronic atrial fibrillation, chronic obstructive pulmonary disease and chronic congestive heart failure. Patient was having increasing shortness of breath for the past one week and it was progressively getting worse; apparently she became extremely short of breath; she was even short of breath with minor exertion. She was getting short of breath when she was talking. Patient was brought to the emergency room. In the emergency room she was found to have atrial fibrillation with a rapid ventricular response. Also she was found to have severe wheezing and shortness of breath. Her CBC showed a WBC count of 10.8, hemoglobin 17.4, platelet count 239,000 and sodium 139, potassium 4.4, creatinine 1.10, BUN 21 and glucose 108. Cardiac enzymes were within normal limits. Troponin level was 0.012. BNP was 2530. Her EKG showed atrial fibrillation with rapid ventricular response. Chest x-ray is consistent with chronic obstructive pulmonary disease and pulmonary congestion. Patient was admitted to the hospital for further evaluation and treatment. Past medical history reveals that she is known to have chronic atrial fibrillation, and she has a history of cardiac catheterization in the past, but apparently it was reported as negative for coronary artery disease. She also has a history of hypertensive cardiovascular disease and chronic obstructive pulmonary disease and also has degenerative arthritis of multiple joints. She has a past history of splenic infarct. Her current medications include: 1. Atenolol 25 mg p.o. daily. 2. Vytorin 1 tablet p.o. daily. 3. Norvasc 5 mg p.o. daily. 4. Warfarin 2 mg p.o. every other day. 5. Neurontin 100 mg p.o. b.i.d. 6. Tessalon Perles 100 mg p.o. b.i.d. 7. Lasix 40 mg p.o. daily. She has NO KNOWN DRUG ALLERGIES. SOCIAL HISTORY: She is a former smoker. FAMILY HISTORY: Positive for heart disease and cancer. REVIEW OF SYSTEMS: Patient denies any headache. Appetite has been poor lately. She has no chest pain, but she is extremely short of breath and she has wheezing. She has no abdominal pain. She has no polyuria or dysuria. She has no neurological symptoms except that she has a history of low back pain and pain radiating to the legs, possibly due to radiculopathy. Physical examination reveals a 80-year-old white female, moderately obese. She is alert and oriented. She is still very short of breath and using nasal oxygen and also getting updraft treatments. There is no jaundice. There is no generalized lymphadenopathy. There are no petechiae or bruises. Temperature 98.6, blood pressure 127/78, respirations 28. Pulse 142, irregular. Neck is supple. Neck veins are distended. Heart is in atrial fibrillation with rapid ventricle response. Lungs reveal bilateral expiratory wheeze and rhonchi. Abdomen is soft and nontender. There is no mass palpable. Examination of the lower extremities reveals no pitting edema. Neurologic examination does not reveal any localizing signs. IMPRESSION: 1. Atrial fibrillation with rapid ventricular response. 2. Chronic obstructive pulmonary disease with acute exacerbation. 3. Acute on chronic congestive heart failure, possibly diastolic. 4. Hyperlipidemia. 5. Degenerative arthritis, multiple joints. 6. Low back pain with possible lumbar radiculopathy. 7. Past history of splenic infarct. PLAN: Patient will be admitted to hospital. Heart will be monitored with telemetry. Will get cardiology consultation and also we will consult concrete pipe maker. Overall, the prognosis is guarded. The diagnosis, prognosis and therapeutic plans were discussed in detail with the patient and also with her today.
--- NOTE | 2016-03-24 18:56 | PN ---
This is a 80-year-old white female who was admitted to the hospital with severe shortness of breath and cough and these symptoms were progressively getting worse and in the ER, she was found to have atrial fibrillation with a rapid ventricular response. She is known to have chronic atrial fibrillation and chronic obstructive pulmonary disease. The patient was admitted to the hospital for further evaluation and treatment. The patient has been started on antibiotics and IV Solu-Medrol and updraft treatments and also she was seen by [facility] in consultation and currently she is receiving IV Lasix 40 mg b.i.d. and updraft treatments and Solu-Medrol and the patient has been placed back on her previous home medications. Patient seems to be still extremely short of breath. Lungs are still congested. The patient is alert and oriented. She is short of breath even with slight movement. Patient also complaining of some nausea. Otherwise, clinically she is remaining stable even though she is extremely short of breath. Zofran 4 IV every six hours p.r.n. and also we will increase Lasix to 60 mg b.i.d. and also will give an extra dose of 40 mg Lasix IV now. We will discuss her condition with Dr. Coronel and also with Dr. Aftab Shea. Both the metalworking specialist and brand activation manager are following the patient. Prognosis is guarded.
[2016-03-24] MEDS: IPRATROPIUM-ALBUTEROL 3 ML NEB INHALATION PRN (20:18)
[2016-03-24 21:04] LABS: Glucose,Whole Blood 140 mg/dL (75-99)
[2016-03-24] MEDS: FUROSEMIDE 10 MG/ML 10 ML VIAL IV SCH (21:21)
[2016-03-25] MEDS: LEVALBUTEROL NEB 1.25 MG/3 ML AMP INHALATION SCH ×6 (03:44→23:37)
[2016-03-25 06:13] LABS: Glucose,Whole Blood 151 mg/dL (75-99)
[2016-03-25] MEDS: MORPHINE SULFATE 2 MG/ML SYRINGE IVP PRN ×2 (06:20→22:36)
[2016-03-25] MEDS: methylPREDNISolone SOD SUCCI 125 MG/2 ML VIAL IV SCH ×4 (06:47→22:36)
[2016-03-25] MEDS: INSULIN LISPRO (humaLOG) 300 UNIT/3 ML VIAL SQ SCH ×4 (06:48→20:56)
[2016-03-25 06:51] LABS: Basophils # (A) 0.1 k/uL (0-0.2); Basophils % (A) 0 %; CH 30.4; CHCM 33.7; Eosinophils % (A) 0 %; HCT 44.9 % (34.0-46.0); Luc # (Auto) 0.15; Luc % (Auto) 1; Lymphocytes % (A) 5 %; MCH 30.3 pg (25.0-35.0); MCHC 33.4 g/dL (31.0-37.0); MCV 90.8 fL (80.0-100.0); Mean Platelet Volume 7.5; Monocytes # (A) 0.8 k/uL (0-1.0); Monocytes % (A) 4 %; Neutrophils # (A) 16.2 k/uL (1.3-7.7); Neutrophils % (A) 89 %; RBC 4.95 m/uL (3.80-5.40); RDW 14.4 % (11.5-15.5); WBC 18.1 k/uL (3.8-10.6); WBC (Perox) 19.29
[2016-03-25 07:30] LABS: INR 2.3 (<1.1); Prothrombin Time 22.4 sec (9.0-12.0)
[2016-03-25] MEDS: ATORVASTATIN 10 MG TAB PO SCH (08:00)
[2016-03-25] MEDS: ATENOLOL 25 MG TAB PO SCH ×2 (08:00→20:55)
[2016-03-25] MEDS: VERAPAMIL 40 MG TAB PO SCH ×3 (08:00→20:56)
[2016-03-25] MEDS: EZETIMIBE 10 MG TAB PO SCH (08:01)
[2016-03-25] MEDS: FUROSEMIDE 10 MG/ML 10 ML VIAL IV SCH ×2 (08:01→20:54)
[2016-03-25] MEDS: GABAPENTIN 100 MG CAP PO SCH ×2 (08:01→20:55)
[2016-03-25] MEDS: DOXYCYCLINE 50 MG CAP PO SCH ×2 (08:01→20:55)
[2016-03-25] MEDS: BUDESONIDE 0.5 MG/2 ML NEBU INHALATION SCH ×2 (08:07→20:02)
--- NOTE | 2016-03-25 08:07 | XR ---
EXAMINATION TYPE: XR chest 1V portable DATE OF EXAM: 03/25/2016 7:02 AM COMPARISON: 03/22/2016 HISTORY: Pneumonia TECHNIQUE: Single frontal view of the chest is obtained. FINDINGS: Heart size stable. No obvious consolidation or pleural effusion. Sue remain prominent. No pneumothorax. Atherosclerotic change aorta IMPRESSION: 1. No definite acute process. 2. Sue remain prominent bilaterally. I represent pulmonary arterial hypertension and pulmonary arter y enlargement. Correlate clinically and if necessary with CT scan.
--- NOTE | 2016-03-25 09:11 | PN ---
Snadie Virk is a 80-year-old female, seen, evaluated and examined. Clinically patient is doing well, but still short of breath, intermittent and wheezing as well. Severity is slightly improved. She does feel congested, unable to produce any sputum though. Her last set of vitals include blood pressure is 100/50, respiratory rate 24, pulse is 80, temperature 98, saturation 97% on 4 L oxygen. HEENT: Atraumatic, normocephalic. Pharynx is clear. NECK: Supple without any lymphadenopathy, jugular venous distention or carotid bruit. LUNGS: Bilateral inspiratory, expiratory wheezing and rhonchi are present. HEART: Regular rate and rhythm. S1 and S2 audible. ABDOMEN: Soft. No rebound or rigidity. EXTREMITIES: +1 peripheral pulses. NEUROLOGICAL EXAMINATION: Awake. White cell count is down to 18,000, hemoglobin 15, hematocrit 44, platelet count 238,000. PT, INR is 22.4 and 2.3. Current medications reviewed. Culture results and reports are reviewed as well. Blood cultures no growth so far. Last chest x-ray performed earlier today reviewed and compared with the prior x-ray. No definite acute process seen. ( ) is prominent, likely pulmonary hypertension. IMPRESSION: 1. Acute chronic obstructive pulmonary disease exacerbation and tracheobronchitis. 2. Atrial fibrillation with rapid ventricular response. Patient is well anticoagulated with Coumadin, can ( ) the heparin. Plan is to continue antibiotics, breathing treatments, steroids. Continue supportive care. Follow clinical course closely. Further recommendations pending.
[2016-03-25 12:12] LABS: Glucose,Whole Blood 195 mg/dL (75-99)
[2016-03-25] MEDS ORDERED: RX INFO: IV CONTRAST WAS GIVEN 1 EACH MISC MISCELLANE PRN (13:37)
[2016-03-25 17:13] LABS: Glucose,Whole Blood 129 mg/dL (75-99)
[2016-03-25] MEDS: LEVOFLOXACIN 750 MG TAB PO SCH (17:20)
[2016-03-25] MEDS: WARFARIN 2 MG TAB PO SCH (17:21)
--- NOTE | 2016-03-25 18:19 | PN ---
This lady has a history of atrial fibrillation, controlled rate, adequate anticoagulation and significant COPD and bronchial asthma with wheezing. Pulmonary-borjas she appears to be the same. I do not have any new suggestions cardiac-borjas. Rate control is optimal. Would defer anticoagulation to Dr. Mohan. S1, S2 heard normally. Irregular rhythm noted. Rate controlled. Lungs reveal bilateral scattered rhonchi, both inspiratory and expiratory. Abdomen and lower extremity exam unchanged. I will await input from pulmonary standpoint. I have no other suggestions at this point.
--- NOTE | 2016-03-25 18:37 | CT ---
EXAMINATION TYPE: CT chest wo con DATE OF EXAM: 03/25/2016 6:28 PM COMPARISON: NONE HISTORY: Patient complains of shortness of breath and cough CT DLP: 744 mGycm Automated exposure control for dose reduction was used. FINDINGS: There are some patchy mild areas of groundglass interstitial density in both lungs consistent with pu lmonary fibrosis. This is more noticeable in the left lower lobe. There is no pericardial effusion. T here is no pleural effusion. There is a small hiatal hernia. Heart size is overall normal but the lef t atrium is prominent. This is suggestive of mitral stenosis. Thoracic aorta is atheromatous. There i s no evidence of an aneurysm. There are no hilar masses. There is no mediastinal adenopathy. The bony thorax is intact. IMPRESSION: ATHEROSCLEROTIC VASCULAR DISEASE. INTERSTITIAL PULMONARY DENSITY CONSISTENT WITH PULMONARY FIBROSIS. NO PULMONARY MASS SEEN. LARGE LEFT ATRIUM THAT COULD RELATE TO MITRAL STENOSIS. SMALL HIATAL HERNIA. ASCENDING AORTA MEASURES UP TO 3.6 CM.
[2016-03-25 20:49] LABS: Glucose,Whole Blood 137 mg/dL (75-99)
[2016-03-26] MEDS: LEVALBUTEROL NEB 1.25 MG/3 ML AMP INHALATION SCH ×6 (03:49→23:24)
--- NOTE | 2016-03-26 05:26 | PN ---
DATE OF SERVICE: 03/25/2016 This is a 80-year-old white female who was admitted with severe shortness of breath and in the emergency room, she was found to have atrial fibrillation with rapid ventricular response and she is known to have chronic atrial fibrillation and the patient also was found to have a COPD with acute exacerbation and acute tracheobronchitis. The patient has been admitted and has been placed on antibiotics and updraft treatments and IV Solu-Medrol. The patient was also seen by [facility] in consultation. Patient today seemed to be improved a little bit, but still extremely short of breath and lungs are reveal scattered rhonchi and wheezing. Lungs still seem to be congested. The patient was also seen by Dr. Ric Coronel in consultation. He is following the patient. However, yesterday, we increased the dose of Lasix and he is slightly better, but still lungs seem to be very congested and has expiratory wheeze and rhonchi. We will get a CT the chest and also check D-dimer to rule out any other problems such as pulmonary embolism or some other pulmonary disease. However, the prognosis is guarded. We will continue current medications, the IV Lasix and the IV Solu-Medrol and updraft treatments. Prognosis is guarded.
[2016-03-26 06:00] LABS: Glucose,Whole Blood 146 mg/dL (75-99)
[2016-03-26 06:13] LABS: Basophils # (A) 0.2 k/uL (0-0.2); Basophils % (A) 1 %; CH 30.5; CHCM 33.3; Eosinophils % (A) 0 %; HCT 46.8 % (34.0-46.0); HGB 15.1 gm/dL (11.4-16.0); Luc # (Auto) 0.11; Luc % (Auto) 1; Lymphocytes # (A) 0.9 k/uL (1.0-4.8); Lymphocytes % (A) 5 %; MCH 29.8 pg (25.0-35.0); MCHC 32.4 g/dL (31.0-37.0); MCV 91.9 fL (80.0-100.0); Mean Platelet Volume 7.7; Monocytes # (A) 0.9 k/uL (0-1.0); Monocytes % (A) 5 %; Neutrophils # (A) 16.4 k/uL (1.3-7.7); Neutrophils % (A) 88 %; RBC 5.09 m/uL (3.80-5.40); RDW 14.5 % (11.5-15.5); WBC 18.5 k/uL (3.8-10.6); WBC (Perox) 18.96
[2016-03-26] MEDS: methylPREDNISolone SOD SUCCI 125 MG/2 ML VIAL IV SCH ×4 (06:44→23:10)
[2016-03-26] MEDS: INSULIN LISPRO (humaLOG) 300 UNIT/3 ML VIAL SQ SCH ×4 (06:45→22:01)
[2016-03-26] MEDS: HEPARIN SODIUM,PORCINE/D5W PMX 25,000 UNIT in DEXTROSE/WATER 1 500ML.BAG IV SCH (08:04)
[2016-03-26] MEDS: BUDESONIDE 0.5 MG/2 ML NEBU INHALATION SCH ×2 (08:13→18:57)
[2016-03-26] MEDS: DOXYCYCLINE 50 MG CAP PO SCH ×2 (08:55→19:59)
[2016-03-26] MEDS: EZETIMIBE 10 MG TAB PO SCH (08:55)
[2016-03-26] MEDS: FUROSEMIDE 10 MG/ML 10 ML VIAL IV SCH ×2 (08:55→19:59)
[2016-03-26] MEDS: ATORVASTATIN 10 MG TAB PO SCH (08:55)
[2016-03-26] MEDS: ATENOLOL 25 MG TAB PO SCH ×2 (08:55→19:59)
[2016-03-26] MEDS: VERAPAMIL 40 MG TAB PO SCH ×3 (08:56→23:10)
[2016-03-26] MEDS: GABAPENTIN 100 MG CAP PO SCH ×2 (08:56→20:00)
[2016-03-26 12:17] LABS: Glucose,Whole Blood 204 mg/dL (75-99)
[2016-03-26] MEDS: MORPHINE SULFATE 2 MG/ML SYRINGE IVP PRN ×2 (12:20→23:08)
--- NOTE | 2016-03-26 15:25 | PN ---
Sandie Crocker who is a 80-year-old female, seen, evaluated and examined. This patient has problems associated with atrial fibrillation with rapid ventricular response, acute exacerbation of CHF related to acute diastolic heart failure, acute COPD, exacerbation. Clinically, patient is still short of breath and wheezy, but; however, severity is improved. Does get short of breath on minimal activity and exertion. Her hemodynamic status is stable. Blood pressure is running on the higher side. Last set was 150/102, respiratory rate is in mid teens, heart rate 85, temperature 97, saturation of 95% to 96% on 4 L oxygen. HEENT: Atraumatic, normocephalic. Pharynx is clear. NECK: Supple without any lymphadenopathy, jugular venous distention or carotid bruit. LUNGS: Bilateral inspiratory and expiratory wheezing and rhonchi are present. HEART: Regular rate and rhythm. Abdomen is soft. NEUROLOGICAL EXAMINATION: Otherwise, awake and alert. Labs reviewed. White cell count down to 18,500, hemoglobin of 1546, platelet count of 237,000. Glucose is 146. Current medications reviewed, include DuoNeb updraft 4 times a day as needed, atenolol 25 mg 2 times, Lipitor 10 mg daily, Tessalon Perles as needed, Pulmicort 2 times a day, doxycycline 100 mg p.o. 2 times a day, Zetia 10 mg a day, Lasix 60 mg a day, Neurontin 100 mg p.o. 2 times a day, sliding scale insulin, Xopenex 4 times a day, Levaquin 750 mg every other day, Solu-Medrol 60 q.6 hourly, and Coumadin. The laboratory data reviewed as well. PT, INR is improved to 22.4 and 2.3 yesterday and today is not checked it. IMPRESSION: 1. Acute chronic obstructive pulmonary disease exacerbation. 2. Purulent tracheobronchitis. 3. Left lower lobe pneumonia as seen on the CT scan. 4. Mitral stenosis. 5. Mild degree of pulmonary hypertension. PLAN AND RECOMMENDATION: Continue anticoagulation. Continue antibiotics, steroids, bronchodilator. Continue other supportive care. Will follow clinical course closely. Further recommendations pending. Plan of care as per clinical response of the patient.
--- NOTE | 2016-03-26 16:23 | PN ---
DATE OF SERVICE: 03/26/2016 This 80-year-old white female who was admitted with acute tracheobronchitis, acute exacerbation of COPD and congestive heart failure. The patient was seen by Dr. Ric Coronel in consultation. The patient is currently on antibiotics, IV Solu-Medrol and updraft treatments and patient also was seen by [facility] in consultation and she has chronic atrial fibrillation. The patient continues to have severe wheezing and severe shortness of breath and she had a CT scan which did not show any mass, but she has extensive pulmonary fibrosis and she also has markedly dilated left atrium. The patient when seen today seems to be slightly better than yesterday and she is getting Lasix IV 60 mg b.i.d. The prognosis is guarded and we will continue current treatments and the therapeutic plan. The diagnosis and prognosis were discussed again with the patient today.
[2016-03-26] MEDS: WARFARIN 1 MG TAB PO SCH (17:20)
[2016-03-26 17:24] LABS: Glucose,Whole Blood 127 mg/dL (75-99)
[2016-03-26 20:48] LABS: Glucose,Whole Blood 245 mg/dL (75-99)
--- NOTE | 2016-03-26 21:08 | PN ---
Mrs. Virk actually is feeling better today. Her breathing is easier. She is less short of breath. Her wheezes are less. She is hemodynamically stable. Remains in atrial fibrillation, controlled rate. Blood pressure 120/70. Pulse rate is about 80 per minute, irregular. JVD 1 cm. S1, S2 heard normally. ( ) rate and rhythm noted. Short systolic murmur noted. Lungs reveal improved air entry, less wheezing. Abdomen and lower extremity exam unchanged. Cardiac-borjas, no new recommendations. PT, INR is being addressed by Dr. Mohan. Rate control is optimal for atrial fibrillation. Same medications are advised.
[2016-03-27] MEDS: LEVALBUTEROL NEB 1.25 MG/3 ML AMP INHALATION SCH ×6 (03:27→23:09)
[2016-03-27 06:16] LABS: Basophils # (A) 0.1 k/uL (0-0.2); Basophils % (A) 1 %; CH 30.2; CHCM 32.9; Eosinophils % (A) 0 %; HCT 48.3 % (34.0-46.0); HDW 2.55; HGB 15.2 gm/dL (11.4-16.0); Luc # (Auto) 0.27; Luc % (Auto) 2; Lymphocytes # (A) 1.5 k/uL (1.0-4.8); Lymphocytes % (A) 8 %; MCH 29.1 pg (25.0-35.0); MCHC 31.5 g/dL (31.0-37.0); MCV 92.4 fL (80.0-100.0); Mean Platelet Volume 6.7; Monocytes # (A) 0.7 k/uL (0-1.0); Monocytes % (A) 4 %; Neutrophils # (A) 15.5 k/uL (1.3-7.7); Neutrophils % (A) 86 %; RBC 5.23 m/uL (3.80-5.40); RDW 14.3 % (11.5-15.5); WBC 18.1 k/uL (3.8-10.6); WBC (Perox) 17.82
[2016-03-27 06:23] LABS: INR 3.6 (<1.1); Prothrombin Time 35.5 sec (9.0-12.0)
[2016-03-27] MEDS: methylPREDNISolone SOD SUCCI 125 MG/2 ML VIAL IV SCH ×4 (07:11→20:45)
[2016-03-27] MEDS: INSULIN LISPRO (humaLOG) 300 UNIT/3 ML VIAL SQ SCH ×4 (07:35→20:45)
[2016-03-27] MEDS: BUDESONIDE 0.5 MG/2 ML NEBU INHALATION SCH ×2 (07:42→19:19)
[2016-03-27] MEDS: DOXYCYCLINE 50 MG CAP PO SCH ×2 (08:32→20:41)
[2016-03-27] MEDS: GABAPENTIN 100 MG CAP PO SCH ×2 (08:32→20:41)
[2016-03-27] MEDS: FUROSEMIDE 10 MG/ML 10 ML VIAL IV SCH ×2 (08:32→20:41)
[2016-03-27] MEDS: ATENOLOL 25 MG TAB PO SCH ×2 (08:33→20:41)
[2016-03-27] MEDS: VERAPAMIL 40 MG TAB PO SCH ×3 (08:33→20:41)
[2016-03-27] MEDS: ATORVASTATIN 10 MG TAB PO SCH (08:33)
[2016-03-27] MEDS: EZETIMIBE 10 MG TAB PO SCH (08:33)
[2016-03-27] MEDS: MORPHINE SULFATE 2 MG/ML SYRINGE IVP PRN (08:38)
[2016-03-27 13:39] LABS: Glucose,Whole Blood 139 mg/dL (75-99)
[2016-03-27 13:40] LABS: Glucose,Whole Blood 140 mg/dL (75-99)
[2016-03-27] MEDS: PANTOPRAZOLE 40 MG TABLET PO SCH (13:40)
[2016-03-27 13:41] LABS: Glucose,Whole Blood 214 mg/dL (75-99)
[2016-03-27] MEDS: HYDROcodone/APAP 5-325MG 1 EACH TAB PO PRN (13:52)
--- NOTE | 2016-03-27 14:54 | PN ---
Covering for Dr. Ric Coronel. DATE OF SERVICE: 03/27/2016 The patient is a 80-year-old female who is seen sitting up in bed, just finishing up lunch, visiting with a family member continues to experience shortness of breath with bronchospasms and a cough, is feeling a little worse today. The patient is afebrile, hemodynamically stable, in no acute distress. On physical exam, VITAL SIGNS: Temp is 98.4, pulse is 88, respiratory rate is 18, blood pressure is 145/56, O2 sat is 95% on 4L O2 via nasal cannula. HEENT: Head is normocephalic, atraumatic. Neck is supple. Trachea is midline. Lungs are decreased with scattered inspiratory and expiratory wheezes throughout. HEART: S1 and S2 are heard. Not tachycardic. Abdomen is soft. Bowel sounds are heard. Extremities with no edema. NEUROLOGIC: Patient is awake and alert. LABS: White count is 18.1, hemoglobin is 15.2, hematocrit is 48.3 with 279,000 platelets. PT is 35.5 with an INR of 3.6. IMAGING: No new imaging to review. IMPRESSION: 1. Acute chronic obstructive pulmonary disease exacerbation. 2. Purulent tracheobronchitis. 3. Left lower lobe pneumonia. 4. Mitral stenosis. 5. Mild degree of pulmonary hypertension. PLAN: Continue current medications which have been reviewed with bronchodilators and aerosolized steroids. Continue IV Solu-Medrol. Would hold Coumadin today, as patient's PT is greater than 3. Will add incentive spirometry with pulmonary hygiene and flutter therapy. Will also had Prilosec for GI prophylaxis and continue to follow patient closely with you, making further changes as necessary. I performed a history and physical examination of this patient and discussed the same with the dictator. I agree with the dictator's note. Any additional findings/opinions, etc. will be noted.
--- NOTE | 2016-03-27 14:56 | PN ---
DATE OF SERVICE: 03/27/2016 This is a 80-year-old white female who has a history of advanced COPD and also chronic atrial fibrillation and chronic congestive heart failure. She was admitted to the hospital with severe shortness of breath and acute on chronic congestive heart failure. Patient was admitted with a diagnosis of acute tracheobronchitis with acute exacerbation of COPD and acute on chronic CHF, atrial fibrillation with rapid ventricular response. The patient was started on antibiotics and IV Solu-Medrol and updraft treatments. Patient was [facility] in consultation. Now she is still in atrial fibrillation but with a controlled ventricular rate. She had a CT scan which did not show any new findings other than the COPD and chronic interstitial fibrosis. Patient is also getting IV Solu-Medrol. Today patient is having some hallucinations and mental confusion. She is getting morphine IV for back pain. We will discontinue that and place her on [place] 5/325 every 6 hours p.r.n. The overall prognosis is guarded. She is very slowly improving clinically. We will continue current treatments. The it manager and urban redevelopment specialist are also following the patient.
[2016-03-27 17:03] LABS: Glucose,Whole Blood 147 mg/dL (75-99)
[2016-03-27] MEDS: LEVOFLOXACIN 750 MG TAB PO SCH (17:35)
[2016-03-27 20:46] LABS: Glucose,Whole Blood 210 mg/dL (75-99)
--- NOTE | 2016-03-27 21:53 | PN ---
Mrs. Virk continues to have wheezing. There is modest improvement. Vital signs are stable. Atrial fibrillation rate is controlled. Anticoagulation is being adjusted by Dr. Mohan. S1, S2 heard normally. Irregular rate and rhythm noted. Lungs reveal improved air entry with scattered rhonchi. Abdomen and lower extremity exam is unchanged.
[2016-03-28] MEDS: LEVALBUTEROL NEB 1.25 MG/3 ML AMP INHALATION SCH ×5 (03:58→20:04)
[2016-03-28 06:20] LABS: Glucose,Whole Blood 146 mg/dL (75-99)
[2016-03-28] MEDS: methylPREDNISolone SOD SUCCI 125 MG/2 ML VIAL IV SCH ×4 (06:32→23:04)
[2016-03-28] MEDS: PANTOPRAZOLE 40 MG TABLET PO SCH (06:33)
[2016-03-28] MEDS: INSULIN LISPRO (humaLOG) 300 UNIT/3 ML VIAL SQ SCH ×4 (06:33→23:04)
[2016-03-28 06:36] LABS: CHCM 32.7; HCT 46.5 % (34.0-46.0); HDW 2.53; HGB 15.1 gm/dL (11.4-16.0); Immature Gran Flag Slight; MCH 29.9 pg (25.0-35.0); MCHC 32.5 g/dL (31.0-37.0); Mean Platelet Volume 6.9; RBC 5.05 m/uL (3.80-5.40); RDW 14.3 % (11.5-15.5); WBC 19.4 k/uL (3.8-10.6)
[2016-03-28 06:47] LABS: Add Differential Manual Differential
[2016-03-28 06:50] LABS: Manual Review Performed; Nucleated Red Blood Cells 0 /100 WBC (0-0); Total Cells Counted 100
[2016-03-28] MEDS: FUROSEMIDE 10 MG/ML 10 ML VIAL IV SCH ×2 (08:27→23:03)
[2016-03-28] MEDS: ATENOLOL 25 MG TAB PO SCH ×2 (08:27→22:57)
[2016-03-28] MEDS: DOXYCYCLINE 50 MG CAP PO SCH ×2 (08:27→22:58)
[2016-03-28] MEDS: EZETIMIBE 10 MG TAB PO SCH (08:27)
[2016-03-28] MEDS: ATORVASTATIN 10 MG TAB PO SCH (08:27)
[2016-03-28] MEDS: VERAPAMIL 40 MG TAB PO SCH ×3 (08:28→22:57)
[2016-03-28] MEDS: GABAPENTIN 100 MG CAP PO SCH ×2 (08:28→22:58)
[2016-03-28] MEDS: BUDESONIDE 0.5 MG/2 ML NEBU INHALATION SCH ×2 (08:56→20:02)
[2016-03-28 11:44] LABS: Glucose,Whole Blood 206 mg/dL (75-99)
[2016-03-28 12:11] LABS: INR 3.3 (<1.1); Prothrombin Time 32.1 sec (9.0-12.0)
--- NOTE | 2016-03-28 12:20 | P.CON ---
Consult Note - . Assessment/Plan:: There is a dictation on the consult requested by Dr. Kwame Mohan, for evaluation and treatment and management as well as follow the patient and his temporary absence. Patient seen and evaluated and patient medical problem #1 admitted with the shortness of breath, acute respiratory failure probably on the top of chronic, has been seen by Dr. Saenz/Chaparro Shea as outpatient as well as inpatient. #2 underlying atrial fibrillation mild rapid ventricular response, currently controlled. #3 PT and INR was prolonged and on 03/27/2016 with the INR 3.6 has been held and we will be obtaining laboratory today and they will advised to call me with the results. #[address] RANGEL Shea. #4 pulmonary hypertension. # 5 currently she is still short of breath she had expiratory and inspiratory wheezes and she has been on 2 antibiotic doxycycline and Levaquin. #6 patient had leukocytosis apparently secondary to steroid with the underlying the margination due to that effect. #7 she is currently on a steroid IV in the form of Solu-Medrol 60 mg every 6 hours. #8 she is on inhalation therapy as well. Vital signs stable, she is on insulin for underlying effect of the steroid with the hyperglycemia, patient stated that she was not diabetic in the past. Patient blood culture was negative, blood pressure today on the March 28 the date of service 2015, blood pressure 116/68 with the pulse rate controlled 96- 75 with a [place] fibrillation currently controlled response. On exam: HEENT negative, natural teeth, normal hearing, no nasal dripping, Neck was supple no JVD no thyromegaly no lymphadenopathy. Trachea midline Her chest increased up anteroposterior diameter with the respiratory expiratory rhonchi's and apparently there is secretion needs to come out we will be adding chest physiotherapy. Heart irregular irregularity's with Atrovent fibrillation controlled ventricular response, her echocardiogram indicating that her ejection fraction 55-60 with left atrial severely dilated more than 40 mL per meter square she had a mild pulmonary hypertension with right ventricular systolic pressure 39.21 mmHg. Normal pericardium and mitral regurgitation as well as and aortic valve is trileaflet mild mitral calcification tricuspid regurgitation as mentioned mitral regurgitation. Abdomen: Obese positive bowel sounds no organ enlargement no tenderness. Extremities no edema and positive pulses bilateral and symmetrical. Neurologically: Patient communicate well conscious alert oriented 3 she had history of intermittent confusion with the admission but currently as to time lapse she is clear. She currently receiving physical therapy. Assessment: #1 atrial fibrillation with rapid ventricular response, currently she has a [place] fibrillation was controlled ventricular response on anticoagulation Coumadin. #2 COPD exacerbation with the underlying chronic respiratory respiratory failure associated with acute respiratory failure. Patient still short of breath and has expiratory and inspiratory wheezes and. That she feeling that she wanted cough up phlegm could not do it, we will ask chest physiotherapy to help. #3 leukocytosis probably associated with a steroid IV #4 hyperglycemia probably associated with steroid IV. #5 history of diastolic congestive heart failure currently improved. Plan: We'll obtain laboratory chest x-ray and BNP CBC with differential and CMP and reevaluate in the morning we'll check with the pulmonary for cutting down on the steroid, we added already the chest physiotherapy. Patient does not have any more IV Hep-Lock only, and we will be checking her PT and INR today and adjusting the Coumadin dose.
--- NOTE | 2016-03-28 13:51 | PN ---
DATE OF SERVICE: 03/28/2016 She has been hemodynamically stable but has had worsening shortness of breath over night. On physical examination, blood pressure 115/68, respiratory rate 18, pulse rate of 94, temperature 96.8, O2 sat on 4 liters by nasal cannula is 98%. HEENT is unremarkable. Chest reveals expiratory wheeze. Cardiovascular system reveals an S1 and S2. Abdomen is soft. There is trace pedal edema. IMPRESSION: 1. Asthma with chronic obstructive pulmonary disease with acute exacerbation. 2. Congestive heart failure. 3. Pneumonia. 4. Atrial fibrillation with rapid ventricular response. At this point in time, would recommend continuing methylprednisone at 60 mg IV push q.6. Add montelukast to her regimen. Continue aerosolized steroids, continue antibiotics and cardiac medications along with warfarin. She was counseled regarding her condition and this approach in the presence of her .
[2016-03-28 17:04] LABS: Glucose,Whole Blood 114 mg/dL (75-99)
[2016-03-28 20:25] LABS: Glucose,Whole Blood 237 mg/dL (75-99)
[2016-03-28] MEDS: MONTELUKAST 10 MG TAB PO SCH (22:58)
[2016-03-28] MEDS: IPRATROPIUM-ALBUTEROL 3 ML NEB INHALATION PRN (23:50)
[2016-03-29] MEDS: IPRATROPIUM-ALBUTEROL 3 ML NEB INHALATION PRN ×2 (03:29→23:52)
[2016-03-29 05:19] LABS: Basophils # (A) 0.1 k/uL (0-0.2); Basophils % (A) 1 %; CH 29.9; CHCM 32.6; Eosinophils # (A) 0.1 k/uL (0-0.7); Eosinophils % (A) 0 %; HCT 49.2 % (34.0-46.0); HDW 2.56; HGB 15.8 gm/dL (11.4-16.0); Immature Gran Flag Slight; Luc # (Auto) 0.28; Luc % (Auto) 2; Lymphocytes # (A) 1.2 k/uL (1.0-4.8); Lymphocytes % (A) 7 %; MCH 29.6 pg (25.0-35.0); MCHC 32.1 g/dL (31.0-37.0); MCV 92.2 fL (80.0-100.0); Mean Platelet Volume 6.4; Monocytes % (A) 5 %; Neutrophils # (A) 15.1 k/uL (1.3-7.7); Neutrophils % (A) 85 %; RBC 5.33 m/uL (3.80-5.40); RDW 14.3 % (11.5-15.5); WBC 17.8 k/uL (3.8-10.6); WBC (Perox) 18.84
[2016-03-29 05:26] LABS: INR 2.9 (<1.1)
[2016-03-29 05:30] LABS: Calcium 9.1 mg/dL (8.4-10.2); Total Bilirubin 0.5 mg/dL (0.2-1.3); Total Protein 5.4 g/dL (6.3-8.2)
[2016-03-29 06:10] LABS: Glucose,Whole Blood 136 mg/dL (75-99)
[2016-03-29 06:11] LABS: Manual Review Performed
[2016-03-29] MEDS: INSULIN LISPRO (humaLOG) 300 UNIT/3 ML VIAL SQ SCH ×4 (06:53→23:37)
[2016-03-29] MEDS: FUROSEMIDE 10 MG/ML 10 ML VIAL IV SCH (06:53)
[2016-03-29] MEDS: PANTOPRAZOLE 40 MG TABLET PO SCH (06:53)
[2016-03-29] MEDS: methylPREDNISolone SOD SUCCI 125 MG/2 ML VIAL IV SCH ×2 (06:54→12:06)
--- NOTE | 2016-03-29 07:18 | XR ---
EXAMINATION TYPE: XR chest 1V portable DATE OF EXAM: 03/29/2016 6:39 AM COMPARISON: 03/25/2016 HISTORY: Cough and congestion TECHNIQUE: Single frontal view of the chest is obtained. FINDINGS: There is no heart failure nor confluent pneumonic infiltrate. There is a small linear dens ity at the lateral right lung base. There are chest leads. Thoracic aorta is atheromatous. IMPRESSION: Subsegmental atelectasis at the right lung base is new compared to the last exam. No hea rt failure. Mild pulmonary fibrosis.
[2016-03-29] MEDS: ATENOLOL 25 MG TAB PO SCH ×2 (08:07→20:31)
[2016-03-29] MEDS: DOXYCYCLINE 50 MG CAP PO SCH ×2 (08:08→20:31)
[2016-03-29] MEDS: ATORVASTATIN 10 MG TAB PO SCH (08:08)
[2016-03-29] MEDS: EZETIMIBE 10 MG TAB PO SCH (08:08)
[2016-03-29] MEDS: VERAPAMIL 40 MG TAB PO SCH ×3 (08:09→20:32)
[2016-03-29] MEDS: GABAPENTIN 100 MG CAP PO SCH ×2 (08:09→20:31)
[2016-03-29] MEDS: BUDESONIDE 0.5 MG/2 ML NEBU INHALATION SCH ×2 (08:35→19:46)
[2016-03-29] MEDS: ALBUTEROL NEBULIZED 2.5 MG/3 ML INHALATION SCH ×4 (08:35→19:46)
[2016-03-29 11:52] LABS: Glucose,Whole Blood 233 mg/dL (75-99)
--- NOTE | 2016-03-29 13:44 | P.PN ---
Subjective Dictation on progress note, date of service 03/29/2016, by Dr. GEN TANNER M.D. [facility], covering for Dr. Kwame Mohan the attending. Patient seen today [id number] discussed with the patient and her and her son. Patient still wheezing expiratory and inspiratory with the sound of secretion, I did order for her chest physiotherapy, and may be she needs a chest percussion. Her chest x-ray was indicating the pulmonary fibrosis, laboratory indicating leukocytosis, secondary to steroid, patient has been for one week or more on a steroid 60 mg IV Solu-Medrol every 6 hours, still have the wheezing and rhonchi' s, no evidence of congestive heart failure, she had at [place] fibrillation with controlled there is ventricular response in the 70-80. Patient still short of breath with minimal exertion, patient also on antibiotic oxytetracycline and Levaquin with currently no evidence of benefit of antibiotic. Reviewed that in the laboratories. Exam [id number]. She is conscious alert oriented, short of breath with minimal exertion HEENT was negative neck was supple no JVD. Trochlea midline. Chest increased anteroposterior diameter with the underlying inspiratory expiratory rhonchi's with deep inspiration rhonchi dry type probably secondary to the pulmonary fibrosis. Patient with atrial fibrillation chronic and she is on Coumadin, however her pro time was prolonged and the Coumadin was held still today is 2.9 probably patient may not need Coumadin today, patient on blood test every day and we will ask the pharmacy to monitor the Coumadin because of the associated antibiotic that can make the PT and INR and INR severely fluctuating. Patient found to have chronic kidney disease stage III, unclear the etiology of that could be hypertensive nephrosclerosis or other etiology, we will obtain ultrasound of the kidney , bladder, ureter. Patient had history of hypertension however currently is normotensive to low blood pressure. Extremities no edema, positive pulses, no ischemic changes. Assessment: Extreme shortness of breath, associated with hypoxemic respiratory failure probably acute on top of chronic. 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 However steroid for more than one week IV has not been helping. #3 chronic kidney disease, hypertensive kidney disease considered, also patient has at [place] fibrillation with rapid ventricular response on admission. #4 chronic at [place] fibrillation with the admission acute exacerbation with the acute rapid ventricular response. Plan: #1 we'll start to decrease the dose of the steroid to 40 mg every 8 hour and that to monitor her response to that if it's okay with the pulmonary. #2 decreasing the steroids will help the hyperglycemia to be resolved patient stated that she has not been diabetic in the past and wonder why she take her insulin on this admission. #3 patient may need future plan for biopsy of the lung probably at [facility], to evaluate of her prognosis. And treatment #4 mild pulmonary hypertension from the current pulmonary fibrosis #5 history of COPD and exacerbation. Objective - Vital Signs Vital signs: Vital Signs Temp 97.4 F L 03/29/16 08:00 Pulse 0 L 03/29/16 12:00 Resp 16 03/29/16 12:00 BP 128/70 03/29/16 11:28 Pulse Ox 94 L 03/29/16 08:00 Intake & Output 03/28/16 03/29/16 03/29/16 18:59 06:59 18:59 Intake Total 360 180 Output Total 1500 2200 Balance -1140 -2200 180 Weight 82 kg Intake: Oral 360 180 Output: Urine 1500 2200 Other: Voiding Method Indwelling Catheter Indwelling Catheter Indwelling Catheter # Voids 1 # Bowel Movements 0 1 - Labs CBC & Chem 7: 03/29/16 04:46 03/29/16 04:46 Labs: Abnormal Lab Results - Last 24 Hours (Table) 03/28/16 03/28/16 03/29/16 Range/Units 16:51 20:23 04:46 WBC 17.8 H (3.8-10.6) k/uL Hct 49.2 H (34.0-46.0) % Neutrophils # 15.1 H (1.3-7.7) k/uL PT (9.0-12.0) sec BUN (7-17) mg/dL Creatinine (0.52-1.04) mg/dL Glucose (74-99) mg/dL POC Glucose (mg/dL) 114 H 237 H (75-99) mg/dL Total Protein (6.3-8.2) g/dL Albumin (3.5-5.0) g/dL 03/29/16 03/29/16 03/29/16 Range/Units 04:46 04:46 05:44 WBC (3.8-10.6) k/uL Hct (34.0-46.0) % Neutrophils # (1.3-7.7) k/uL PT 28.0 H (9.0-12.0) sec BUN 69 H (7-17) mg/dL Creatinine 1.30 H (0.52-1.04) mg/dL Glucose 113 H (74-99) mg/dL POC Glucose (mg/dL) 136 H (75-99) mg/dL Total Protein 5.4 L (6.3-8.2) g/dL Albumin 3.0 L (3.5-5.0) g/dL 03/29/16 Range/Units 11:50 WBC (3.8-10.6) k/uL Hct (34.0-46.0) % Neutrophils # (1.3-7.7) k/uL PT (9.0-12.0) sec BUN (7-17) mg/dL Creatinine (0.52-1.04) mg/dL Glucose (74-99) mg/dL POC Glucose (mg/dL) 233 H (75-99) mg/dL Total Protein (6.3-8.2) g/dL Albumin (3.5-5.0) g/dL
--- NOTE | 2016-03-29 14:00 | P.PN ---
Subjective Principal diagnosis: COPD exacerbation, atrial fibrillation with RVR This is 80-year-old female is admitted to the hospital with increasing shortness of breath and audible wheezing secondary to exacerbation of COPD patient is also complaining of intermittent palpitations she was found to be [place] fibrillation with rapid ventricular response . Her echocardiogram showed good LV function with moderate pulmonary hypertension. There is also history of diastolic congestive heart failure. Patient has been treated with IV diuretics. Her chest x-ray showed some atelectatic changes without any CHF at this time. IV Lasix is being discontinued and Lasix by mouth will be initiated. Dr. Barber also has decreased the dose of the steroids .Patient is clinically feeling better but still start of breath with ongoing wheezing Objective - Vital Signs Vital signs: Vital Signs Temp 97.4 F L 03/29/16 08:00 Pulse 0 L 03/29/16 12:00 Resp 16 03/29/16 12:00 BP 128/70 03/29/16 11:28 Pulse Ox 94 L 03/29/16 08:00 Intake & Output 03/28/16 03/29/16 03/29/16 18:59 06:59 18:59 Intake Total 360 180 Output Total 1500 2200 Balance -1140 -2200 180 Weight 82 kg Intake: Oral 360 180 Output: Urine 1500 2200 Other: Voiding Method Indwelling Catheter Indwelling Catheter Indwelling Catheter # Voids 1 # Bowel Movements 0 1 - Exam GENERAL EXAM: Patient is alert and oriented and doesn't appear to be in any acute distress HEENT: Normocephalic. Normal reaction of pupils, equal size, normal range of extraocular motion. No erythema or exudates in the throat. NECK: No masses, no nuchal rigidity. CHEST: No chest wall deformity. LUNGS: Expiratory wheezing and rhonchi. HEART: S1 and S2 normal with no audible mumurs or gallops. Regular rhythm, femorals equal on both sides.. ABDOMEN: No hepatosplenomegaly, normal bowel sounds, no guarding or rigidity. SKIN: No rashes CENTRAL NERVOUS SYSTEM: No focal deficits. EXTREMITIES: No cyanosis, clubbing or edema. - Labs CBC & Chem 7: 03/29/16 04:46 03/29/16 04:46 Labs: Abnormal Lab Results - Last 24 Hours (Table) 03/28/16 03/28/16 03/29/16 Range/Units 16:51 20:23 04:46 WBC 17.8 H (3.8-10.6) k/uL Hct 49.2 H (34.0-46.0) % Neutrophils # 15.1 H (1.3-7.7) k/uL PT (9.0-12.0) sec BUN (7-17) mg/dL Creatinine (0.52-1.04) mg/dL Glucose (74-99) mg/dL POC Glucose (mg/dL) 114 H 237 H (75-99) mg/dL Total Protein (6.3-8.2) g/dL Albumin (3.5-5.0) g/dL 03/29/16 03/29/16 03/29/16 Range/Units 04:46 04:46 05:44 WBC (3.8-10.6) k/uL Hct (34.0-46.0) % Neutrophils # (1.3-7.7) k/uL PT 28.0 H (9.0-12.0) sec BUN 69 H (7-17) mg/dL Creatinine 1.30 H (0.52-1.04) mg/dL Glucose 113 H (74-99) mg/dL POC Glucose (mg/dL) 136 H (75-99) mg/dL Total Protein 5.4 L (6.3-8.2) g/dL Albumin 3.0 L (3.5-5.0) g/dL 03/29/16 Range/Units 11:50 WBC (3.8-10.6) k/uL Hct (34.0-46.0) % Neutrophils # (1.3-7.7) k/uL PT (9.0-12.0) sec BUN (7-17) mg/dL Creatinine (0.52-1.04) mg/dL Glucose (74-99) mg/dL POC Glucose (mg/dL) 233 H (75-99) mg/dL Total Protein (6.3-8.2) g/dL Albumin (3.5-5.0) g/dL Assessment and Plan (1) Atrial fibrillation with rapid ventricular response Status: Acute (2) CHF (congestive heart failure) Status: Acute (3) COPD exacerbation Status: Acute (4) CVA (cerebral infarction) Status: Acute Plan: Patient's atrial fibrillation is controlled. Patient is unfortunately still wheezing with rhonchi. Bioinformatics Specialist is following. Steroid dose is being tapered. From [facility] standpoint we'll continue current medical therapy except switching from IV Lasix to by mouth Lasix. Further recommendations depend upon the clinical course.
[2016-03-29 15:26] LABS: Basophils # (A) 0.2 k/uL (0-0.2); Basophils % (A) 1 %; CHCM 31.2; Eosinophils % (A) 0 %; HCT 52.8 % (34.0-46.0); HDW 2.58; HGB 16.6 gm/dL (11.4-16.0); Hypochromasia Slight; Immature Gran Flag Slight; Luc # (Auto) 0.18; Luc % (Auto) 1; Lymphocytes # (A) 0.9 k/uL (1.0-4.8); Lymphocytes % (A) 5 %; MCH 30.4 pg (25.0-35.0); MCHC 31.5 g/dL (31.0-37.0); MCV 96.6 fL (80.0-100.0); Mean Platelet Volume 7.6; Monocytes # (A) 1.1 k/uL (0-1.0); Monocytes % (A) 7 %; Neutrophils # (A) 14.7 k/uL (1.3-7.7); Neutrophils % (A) 86 %; RBC 5.47 m/uL (3.80-5.40); RDW 14.7 % (11.5-15.5); WBC 17.2 k/uL (3.8-10.6); WBC (Perox) 16.43
[2016-03-29 16:56] LABS: Glucose,Whole Blood 117 mg/dL (75-99)
[2016-03-29] MEDS: LEVOFLOXACIN 750 MG TAB PO SCH (17:36)
[2016-03-29] MEDS: methylPREDNISolone SOD SUCCI 40 MG/ML 1 ML VIAL IV SCH ×2 (17:38→23:37)
[2016-03-29] MEDS: FUROSEMIDE 80 MG TAB PO SCH (17:39)
[2016-03-29] MEDS: MONTELUKAST 10 MG TAB PO SCH (20:32)
[2016-03-29] MEDS: HYDROcodone/APAP 5-325MG 1 EACH TAB PO PRN (20:37)
[2016-03-29 20:49] LABS: Glucose,Whole Blood 171 mg/dL (75-99)
[2016-03-30] MEDS: IPRATROPIUM-ALBUTEROL 3 ML NEB INHALATION PRN (03:55)
[2016-03-30 05:55] LABS: Glucose,Whole Blood 133 mg/dL (75-99)
[2016-03-30 06:24] LABS: INR 2.5 (<1.1); Prothrombin Time 24.3 sec (9.0-12.0)
[2016-03-30] MEDS: INSULIN LISPRO (humaLOG) 300 UNIT/3 ML VIAL SQ SCH ×4 (06:27→22:16)
[2016-03-30] MEDS: PANTOPRAZOLE 40 MG TABLET PO SCH (06:28)
[2016-03-30 06:30] LABS: Calcium 9.3 mg/dL (8.4-10.2); Potassium 4.2 mmol/L (3.5-5.1)
[2016-03-30] MEDS: VERAPAMIL 40 MG TAB PO SCH ×3 (08:09→22:16)
[2016-03-30] MEDS: methylPREDNISolone SOD SUCCI 40 MG/ML 1 ML VIAL IV SCH (08:09)
[2016-03-30] MEDS: HYDROcodone/APAP 5-325MG 1 EACH TAB PO PRN (08:09)
[2016-03-30] MEDS: DOXYCYCLINE 50 MG CAP PO SCH (08:09)
[2016-03-30] MEDS: BUDESONIDE 0.5 MG/2 ML NEBU INHALATION SCH ×2 (08:10→21:55)
[2016-03-30] MEDS: ALBUTEROL NEBULIZED 2.5 MG/3 ML INHALATION SCH ×4 (08:10→21:55)
[2016-03-30] MEDS: FUROSEMIDE 80 MG TAB PO SCH ×2 (08:10→12:00)
[2016-03-30] MEDS: ATENOLOL 25 MG TAB PO SCH ×2 (08:10→22:15)
[2016-03-30] MEDS: GABAPENTIN 100 MG CAP PO SCH ×2 (08:10→22:15)
[2016-03-30] MEDS: EZETIMIBE 10 MG TAB PO SCH (08:10)
[2016-03-30] MEDS: ATORVASTATIN 10 MG TAB PO SCH (08:10)
[2016-03-30 08:31] LABS: Hemoglobin A1C 6.2 % (4.2-6.1)
--- NOTE | 2016-03-30 08:55 | US ---
EXAMINATION TYPE: US kidneys/renal and bladder DATE OF EXAM: 03/30/2016 8:08 AM COMPARISON: CT abdomen and pelvis January 06, 2013 CLINICAL HISTORY: US. Chronic kidney disease EXAM MEASUREMENTS: Right Kidney: 9.6 x 3.8 x 4.5 cm Left Kidney: 10.2 x 4.1 x 4.9 cm ANATOMY: Visualized kidneys show no worrisome solid or cystic mass or hydronephrosis bilaterally. Corticomedul farzana differentiation is fairly well-maintained. Bladder is suboptimally evaluated as it is decompressed with Pimentel catheter in place. IMPRESSION: No hydronephrosis is evident bilaterally.
--- NOTE | 2016-03-30 09:14 | PN ---
DATE OF SERVICE: 03/29/2016 She is less short of breath, more awake and alert. On physical examination, her respiratory rate 16, pulse of 74, temperature 97.4, blood pressure 128/70, O2 sat on 4 liters by nasal cannula is 94%. HEENT reveals pupils that are equal. No jugular venous distention. Chest reveals expiratory wheeze. Cardiovascular system reveals an S1, S2. Abdomen is soft. There is no edema. White count is 17.8, hemoglobin of 15.8. Sodium 142, potassium 4, chloride 100, bicarbonate 30, BUN 69, creatinine of 1.3. Chest x-ray shows subsegmental atelectasis and mild pulmonary fibrosis. IMPRESSION: 1. Asthma with chronic obstructive pulmonary disease with acute exacerbation. 2. Congestive heart failure. 3. Pneumonia. 4. Afebrile with rapid ventricular response. Continue IV steroids. Continue montelukast. Hopefully switch her to oral steroids tomorrow. Continue antibiotics and cardiac medications. Increase her activity level. Her prognosis at this time is fair.
[2016-03-30] MEDS ORDERED: FUROSEMIDE 10 MG/ML 10 ML VIAL IV STA (11:56)
[2016-03-30 11:57] LABS: Glucose,Whole Blood 248 mg/dL (75-99)
[2016-03-30] MEDS: predniSONE 20 MG TAB PO SCH (12:44)
--- NOTE | 2016-03-30 13:31 | P.PN ---
Subjective Principal diagnosis: COPD exacerbation, atrial fibrillation with RVR Dictation on progress note. Date of service 03/30/2016. Attending physician Dr. Kwame Mohan, dictating the progress note by Dewayne Schuster. [facility], in that temporary absence of Dr. Mohan, he will be seeing her tomorrow and resume the care. Patient seen today [id number] she is conscious alert oriented 3 she is on the chair and try to eat her lunch, stated that she had a soreness of her mouth and difficulty of swallowing, on examination found that she had a thrush associated with antibiotic and associated with a steroid, we discontinued the [place] cycle and as well as the Levaquin, her leukocytosis secondary to be margination by the steroid. And her chest x-ray was indicating pulmonary fibrosis, clinically patient has excessive secretion with the shortness of breath probably she may need in the future bronchoscopy for cleaning up the secretion that could not be expectorated, I did spoke with Markus the physical therapist and that we discussed that she may need the actual old-time percussion of the chest she refused aflutter machine. Her vital sign indicating temperature 97.6 orally and pulse rate 88 with at [place] And occasionally she goes up to 103 and respiratory rate between 18-14 nonlabored. I did decrease her steroid yesterday to 40 mg every 8 hour, Dr. Saenz/Chaparro Shea today saw her and he change it to orally 60 mg of prednisone. And we will be checking subsequently her lab. Because of the steroid she had mild hyperglycemia covered with insulin and her hemoglobin A1c was 6.2 borderline. At [place] fibrillation, her PT and INR today indicating therapeutic INR 2.5 will be starting the warfarin 1 mg today and tomorrow will be rechecked again and accordingly Dr. Mohan and the pharmacy could be adjusting the dose, with the associated interaction with other medication. On exam: Patient is conscious alert oriented 3 her daughter at bedside, her daughter stated that she remember and her past that her mom had thrush with the antibiotic. HEENT: Oropharynx there is a whitish spots on the uvula as well as the posterior of the pharynx. Indicating presence of thrush, I checked her meal at lunchtime and she wasn't able to eat it because difficulty of swallowing with pain secondary to thrush probably from antibiotic.. Eyes nose ears negative. Chest increased anteroposterior diameter with the presence of bilateral rhonchi and needs expectoration. With the history of chest x-ray pulmonary fibrosis. And history of COPD. Heart: She had history of echocardiogram done on this admission with the ejection fraction 50-55 was normal systolic function, she had at [place] fibrillation with left atrium was dilated with mitral regurg and tricuspid regurg, possibility of diastolic heart failure was highly considered Abdomen is soft positive bowel sounds no tenderness in the four-quadrant. Ultrasound of the kidney was obtained which was negative patient has underlying chronic kidney disease stage III elevated BUN/creatinine creatinine probably secondary to diuresis and Lasix. Extremities: No edema and good perfusion in both lower extremities with the ability to ambulate however she gets short of breath. TSH is normal 1 and she had mild decrease in protein and albumin her liver enzyme is normal and her be ON of 69 and creatinine 1.3 which increased on on ,bun 72 and a creatinine 1.39, probably due to diuresis with the Lasix. Assessment: 1 -#1 pulmonary fibrosis, COPD exacerbation. #2 leukocytosis secondary to steroids #3 hyperglycemia secondary to was the steroids #4 thrush and eased with dysphagia oropharyngeal secondary to yeast. #5 chronic kidney disease, ultrasound was normal could be associated with hypertensive nephrosclerosis and at [place] fibrillation. #6 inability to expectorate with the fluttering machine , I did spoke with the respiratory therapist to do the old-time chest percussion for helping the expectoration, otherwise patient need a bronchoscopy for suctioning's. #7 atrial fib with anticoagulation currently stable 2.5 INR will start with 1 mg and check tomorrow PT and INR and Dr. Mohan will be adjusting or the pharmacy. Plan: #1 blood cultures 2 if temperature 100 or above. #2 lab tomorrow to evaluate the leukocytosis, #3 oropharyngeal throat culture for yeast #4 starting Diflucan susp. 300 mg daily #5 DC oxytetracycline, DC Levaquin. #6 obtain BMP , CBC with differential, BNP in a.m. Dr. Mohan will follow the patient tomorrow. Objective - Vital Signs Vital signs: Vital Signs Temp 97.6 F 03/30/16 08:00 Pulse 88 03/30/16 11:56 Resp 14 03/30/16 08:00 BP 134/82 03/30/16 08:00 Pulse Ox 96 03/30/16 08:00 Intake & Output 03/29/16 03/30/16 03/30/16 18:59 06:59 18:59 Intake Total 660 240 Output Total 1200 1200 Balance -540 -1200 240 Intake: Oral 660 240 Output: Urine 1200 1200 Other: Voiding Method Indwelling Catheter Indwelling Catheter Indwelling Catheter # Voids 0 0 # Bowel Movements 0 0 - Labs CBC & Chem 7: 03/29/16 14:30 03/30/16 05:54 Labs: Abnormal Lab Results - Last 24 Hours (Table) 03/29/16 03/29/16 03/29/16 Range/Units 04:46 14:30 16:51 WBC 17.2 H (3.8-10.6) k/uL RBC 5.47 H (3.80-5.40) m/uL Hgb 16.6 H (11.4-16.0) gm/dL Hct 52.8 H (34.0-46.0) % Neutrophils # 14.7 H (1.3-7.7) k/uL Lymphocytes # 0.9 L (1.0-4.8) k/uL Monocytes # 1.1 H (0-1.0) k/uL PT (9.0-12.0) sec Chloride (98-107) mmol/L Carbon Dioxide (22-30) mmol/L BUN (7-17) mg/dL Creatinine (0.52-1.04) mg/dL Glucose (74-99) mg/dL POC Glucose (mg/dL) 117 H (75-99) mg/dL Hemoglobin A1c 6.2 H (4.2-6.1) % 03/29/16 03/30/16 03/30/16 Range/Units 20:35 05:53 05:54 WBC (3.8-10.6) k/uL RBC (3.80-5.40) m/uL Hgb (11.4-16.0) gm/dL Hct (34.0-46.0) % Neutrophils # (1.3-7.7) k/uL Lymphocytes # (1.0-4.8) k/uL Monocytes # (0-1.0) k/uL PT 24.3 H (9.0-12.0) sec Chloride (98-107) mmol/L Carbon Dioxide (22-30) mmol/L BUN (7-17) mg/dL Creatinine (0.52-1.04) mg/dL Glucose (74-99) mg/dL POC Glucose (mg/dL) 171 H 133 H (75-99) mg/dL Hemoglobin A1c (4.2-6.1) % 03/30/16 03/30/16 Range/Units 05:54 11:54 WBC (3.8-10.6) k/uL RBC (3.80-5.40) m/uL Hgb (11.4-16.0) gm/dL Hct (34.0-46.0) % Neutrophils # (1.3-7.7) k/uL Lymphocytes # (1.0-4.8) k/uL Monocytes # (0-1.0) k/uL PT (9.0-12.0) sec Chloride 97 L (98-107) mmol/L Carbon Dioxide 35 H (22-30) mmol/L BUN 72 H (7-17) mg/dL Creatinine 1.39 H (0.52-1.04) mg/dL Glucose 147 H (74-99) mg/dL POC Glucose (mg/dL) 248 H (75-99) mg/dL Hemoglobin A1c (4.2-6.1) %
--- NOTE | 2016-03-30 14:07 | P.PN ---
Subjective Principal diagnosis: COPD exacerbation, atrial fibrillation with RVR This 80-year-old female with history of COPD and pulmonary fibrosis is admitted to the hospital with increasing shortness of breath and exacerbation of COPD. She was also in atrial fibrillation with rapid ventricular response. Her rate is well controlled. We discontinued IV Lasix yesterday. Her creatinine remains high still. She is feeling slightly better but continues to have wheezing and rhonchi. She is being followed by a oyster culturist also. From cardiac standpoint we'll continue current medical therapy Objective - Vital Signs Vital signs: Vital Signs Temp 97.6 F 03/30/16 08:00 Pulse 88 03/30/16 11:56 Resp 14 03/30/16 08:00 BP 134/82 03/30/16 08:00 Pulse Ox 96 03/30/16 08:00 Intake & Output 03/29/16 03/30/16 03/30/16 18:59 06:59 18:59 Intake Total 660 240 Output Total 1200 1200 Balance -540 -1200 240 Intake: Oral 660 240 Output: Urine 1200 1200 Other: Voiding Method Indwelling Catheter Indwelling Catheter Indwelling Catheter # Voids 0 0 # Bowel Movements 0 0 - Exam GENERAL EXAM: Patient is alert and oriented and doesn't appear to be in any acute distress HEENT: Normocephalic. Normal reaction of pupils, equal size, normal range of extraocular motion. No erythema or exudates in the throat. NECK: No masses, no nuchal rigidity. CHEST: No chest wall deformity. LUNGS: Expiratory wheezing and rhonchi. HEART: S1 and S2 normal with no audible mumurs or gallops. Regular rhythm, femorals equal on both sides.. ABDOMEN: No hepatosplenomegaly, normal bowel sounds, no guarding or rigidity. SKIN: No rashes CENTRAL NERVOUS SYSTEM: No focal deficits. EXTREMITIES: No cyanosis, clubbing or edema. - Labs CBC & Chem 7: 03/29/16 14:30 03/30/16 05:54 Labs: Abnormal Lab Results - Last 24 Hours (Table) 03/29/16 03/29/16 03/29/16 Range/Units 04:46 14:30 16:51 WBC 17.2 H (3.8-10.6) k/uL RBC 5.47 H (3.80-5.40) m/uL Hgb 16.6 H (11.4-16.0) gm/dL Hct 52.8 H (34.0-46.0) % Neutrophils # 14.7 H (1.3-7.7) k/uL Lymphocytes # 0.9 L (1.0-4.8) k/uL Monocytes # 1.1 H (0-1.0) k/uL PT (9.0-12.0) sec Chloride (98-107) mmol/L Carbon Dioxide (22-30) mmol/L BUN (7-17) mg/dL Creatinine (0.52-1.04) mg/dL Glucose (74-99) mg/dL POC Glucose (mg/dL) 117 H (75-99) mg/dL Hemoglobin A1c 6.2 H (4.2-6.1) % 03/29/16 03/30/16 03/30/16 Range/Units 20:35 05:53 05:54 WBC (3.8-10.6) k/uL RBC (3.80-5.40) m/uL Hgb (11.4-16.0) gm/dL Hct (34.0-46.0) % Neutrophils # (1.3-7.7) k/uL Lymphocytes # (1.0-4.8) k/uL Monocytes # (0-1.0) k/uL PT 24.3 H (9.0-12.0) sec Chloride (98-107) mmol/L Carbon Dioxide (22-30) mmol/L BUN (7-17) mg/dL Creatinine (0.52-1.04) mg/dL Glucose (74-99) mg/dL POC Glucose (mg/dL) 171 H 133 H (75-99) mg/dL Hemoglobin A1c (4.2-6.1) % 03/30/16 03/30/16 Range/Units 05:54 11:54 WBC (3.8-10.6) k/uL RBC (3.80-5.40) m/uL Hgb (11.4-16.0) gm/dL Hct (34.0-46.0) % Neutrophils # (1.3-7.7) k/uL Lymphocytes # (1.0-4.8) k/uL Monocytes # (0-1.0) k/uL PT (9.0-12.0) sec Chloride 97 L (98-107) mmol/L Carbon Dioxide 35 H (22-30) mmol/L BUN 72 H (7-17) mg/dL Creatinine 1.39 H (0.52-1.04) mg/dL Glucose 147 H (74-99) mg/dL POC Glucose (mg/dL) 248 H (75-99) mg/dL Hemoglobin A1c (4.2-6.1) % Assessment and Plan (1) Atrial fibrillation with rapid ventricular response Status: Acute (2) CHF (congestive heart failure) Status: Acute (3) COPD exacerbation Status: Acute (4) CVA (cerebral infarction) Status: Acute Plan: Patient is still having shortness of breath but seemed to be slightly improved. Her creatinine still high. Heart rate is better controlled. Continue current medical therapy. Incentive spirometry and pulmonary follow-up
--- NOTE | 2016-03-30 14:10 | PN ---
DATE OF SERVICE: 03/30/2016 She continues to have shortness of breath, but is doing slightly better over the last 48 hours. She denies any chest pain. On physical examination, her blood pressure 134/82, respiratory rate 14, pulse 103, temperature 97.6, O2 sat on 4 L by nasal cannula is 96%. HEENT reveals no new changes. Chest reveals expiratory wheeze, occasional basal crackles. Cardiovascular system reveals an S1 and S2. Abdomen is soft. There is trace pedal edema. There is dilute urine in the urine bag. She has a Pimentel catheter as well. Sodium is 143, potassium 4.2, chloride 97, bicarb 35. PT, INR of 2.5. BUN 72, creatinine 1.39. IMPRESSION: 1. Shortness of breath secondary to asthma with chronic obstructive pulmonary disease with acute exacerbation. 2. Congestive heart failure. 3. Atrial fibrillation with rapid ventricular response. 4. Possible pneumonia. At this point in time, continue antibiotics, switch her to oral steroids. Increase her activity level. Because of medical debility she is a candidate for inpatient rehabilitation as she lives with her . Depending on how she does, we shall make further changes to her care.
[2016-03-30 17:29] LABS: Glucose,Whole Blood 95 mg/dL (75-99)
[2016-03-30] MEDS: FLUCONAZOLE ORAL SUSP 1,400 MG/35 ML BOTTLE PO SCH (17:47)
[2016-03-30] MEDS: WARFARIN 1 MG TAB PO SCH (17:47)
[2016-03-30] MEDS ORDERED: WARFARIN 1 MG TAB PO SCH (18:00)
[2016-03-30 21:15] LABS: Glucose,Whole Blood 236 mg/dL (75-99)
[2016-03-30] MEDS: MONTELUKAST 10 MG TAB PO SCH (22:15)
[2016-03-30] MEDS: guaiFENesin 600 MG TABLET.ER PO SCH (22:18)
[2016-03-31 06:24] LABS: CH 29.8; CHCM 32.6; HCT 51.7 % (34.0-46.0); HDW 2.46; HGB 16.7 gm/dL (11.4-16.0); Immature Gran Flag Slight; MCH 29.6 pg (25.0-35.0); MCHC 32.2 g/dL (31.0-37.0); MCV 91.9 fL (80.0-100.0); Mean Platelet Volume 6.6; RBC 5.63 m/uL (3.80-5.40); RDW 14.4 % (11.5-15.5); WBC 14.5 k/uL (3.8-10.6); WBC (Perox) 14.57
[2016-03-31 06:27] LABS: INR 2.7 (<1.1); Prothrombin Time 25.8 sec (9.0-12.0)
[2016-03-31 06:29] LABS: Glucose,Whole Blood 104 mg/dL (75-99)
[2016-03-31 06:39] LABS: Calcium 9.4 mg/dL (8.4-10.2); Potassium 4.5 mmol/L (3.5-5.1)
[2016-03-31] MEDS: INSULIN LISPRO (humaLOG) 300 UNIT/3 ML VIAL SQ SCH ×4 (06:50→21:21)
[2016-03-31] MEDS: PANTOPRAZOLE 40 MG TABLET PO SCH (06:51)
--- NOTE | 2016-03-31 07:11 | P.CONS ---
History of Present Illness - Chief Complaint Debility - History of Present Illness 80-year-old right-handed white female admitted to [facility] March 22 with known atrial fibrillation. Admitted with weakness, congestion, shortness of breath. Seen by Dr. RANGEL Shea. Physical therapy prescribed. Chest x-rays followed demonstrate right base atelectasis and mild pulmonary fibrosis. Abdominal ultrasound negative for hydrops. Previous functional history: As elicited from patient. Right-handed, , lives in one floor home with . History smoking in the remote past. Doesn't smoke or drink currently. Retired. Describes independent with cooking , laundry, driving, standing shower and gait without device. Dr. Mohan his regular doctor. Family history of cardiac disease and father and CHF in mother. Review of Systems Review of systems: ENT: Denies sneezes or discharge. Eyes: Denies discharge or photophobia. Cardiac: Denies chest pain or palpitation. Pulmonary: At least mild shortness of breath. Breast: Denies discharge or lumps. Gastrointestinal: Denies nausea, emesis, constipation, diarrhea. Genitourinary: Denies discharge or frequency. Musculoskeletal: Denies muscle or bone aches. Neurologic: Mild generalized weakness but improving. Endocrine: Denies shakes or sweats. Oncology: Denies cancers. Dermatologic: Denies rash, itching, pruritus. ALLERGY/immunology: Denies sneezes, rashes. 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, URINARY INCONTINENCE, ABD HERNIA,DIVERTICULITIS History of Any Multi-Drug Resistant Organisms: None Reported Past Surgical History: Adenoidectomy, Appendectomy, Breast Surgery, Heart Catheterization, Hysterectomy, Tonsillectomy Additional Past Surgical History / Comment(s): CATARACTS-LENS IMPLANTS, CYSTOCELE/RECTOCELE AND HOLE IN BOWEL REPAIRED, LT HAND THUMB SX, BREAST BIOPSY- NEG Past Anesthesia/Blood Transfusion Reactions: No Reported Reaction Past Psychological History: Anxiety Additional Psychological History / Comment(s): related to procedure Smoking Status: Former smoker Past Alcohol Use History: None Reported Additional Past Alcohol Use History / Comment(s): 1/2 PPD Past Drug Use History: None Reported - Past Family History Father Family Medical History: Cancer, Myocardial Infarction (NH) Additional Family Medical History / Comment(s): ANEURYSMS, BONE CA. AGE 75 FROM ANEURYSM IN HEAD Mother Family Medical History: Congestive Heart Failure (CHF) Additional Family Medical History / Comment(s): AT AGE 84 Medications and Allergies Home Medications Medication Instructions Recorded Confirmed Type Atenolol [Tenormin] 25 mg PO DAILY 02/13/14 03/23/16 History Ezetimibe/Simvastatin [Vytorin 1 tab PO DAILY 02/13/14 03/23/16 History 10-20 mg Tablet] amLODIPine [Norvasc] 5 mg PO DAILY 02/13/14 03/23/16 History Warfarin [Coumadin] 2 mg PO SUTUWETHFRSA 08/29/15 03/23/16 History Gabapentin [Neurontin] 100 mg PO BID 11/14/15 03/23/16 History Warfarin Sodium [Warfarin Sodium] 1 mg PO MO 11/14/15 03/23/16 History Furosemide [Lasix] 40 mg PO BID 03/22/16 03/23/16 History Allergies Allergy/AdvReac Type Severity Reaction Status Date / Time No Known Allergies Allergy Verified 03/23/16 08:40 Physical Exam Vitals: Vital Signs Temp Pulse Pulse Resp BP Pulse Ox 03/31/16 04:00 96.4 F L 82 18 114/71 94 L 03/31/16 00:15 96.8 F L 66 18 112/60 96 03/30/16 22:09 84 03/30/16 21:55 84 03/30/16 20:35 96.0 F L 70 18 123/74 96 03/30/16 16:29 82 03/30/16 16:17 82 03/30/16 15:31 97.5 F L 82 16 131/87 97 03/30/16 12:00 97.6 F 76 16 134/59 95 03/30/16 11:56 88 03/30/16 08:30 86 03/30/16 08:00 97.6 F 88 103 H 14 134/82 96 Intake and Output 03/30/16 03/31/16 03/31/16 22:59 06:59 14:59 Output Total 3600 800 Balance -3600 -800 Output: Urine 3600 800 Uretheral (Pimentel) 1475 Other: Voiding Method Diaper Diaper # Voids 1 # Bowel Movements 0 Weight 81.6 kg 80.8 kg Skin: Good color, texture, turgor. General: Overweight and comfortable appearance. Head: Normocephalic, atraumatic. Eyes: Symmetric. Pupils equal round. Ears: Symmetric. Hearing within normal limits. Mouth: Clear. Neck: Supple. Carotid without bruit. Cardiac: Regular rate and rhythm. Lungs: Clear anteriorly and posteriorly. Abdomen: Soft active nontender, overweight. Extremities: Normal tone. Neurological: Mental status: Alert, cooperative, pleasant. Cranial nerves: Symmetric facial tone and trapezius. Motor: Active movement and normal isolation all 4 limbs. Sensation: Intact throughout. DTRs: Symmetric and equal throughout, absent. Mobility: Sits and stands standby assistance but no definite verbal cueing or loss of balance. Results CBC & Chem 7: 03/31/16 05:11 03/31/16 05:11 Labs: Abnormal Lab Results - Last 24 Hours (Table) 03/29/16 03/30/16 03/30/16 Range/Units 04:46 11:54 21:14 WBC (3.8-10.6) k/uL RBC (3.80-5.40) m/uL Hgb (11.4-16.0) gm/dL Hct (34.0-46.0) % PT (9.0-12.0) sec Chloride (98-107) mmol/L Carbon Dioxide (22-30) mmol/L BUN (7-17) mg/dL Creatinine (0.52-1.04) mg/dL POC Glucose (mg/dL) 248 H 236 H (75-99) mg/dL Hemoglobin A1c 6.2 H (4.2-6.1) % 03/31/16 03/31/16 03/31/16 Range/Units 05:11 05:11 05:11 WBC 14.5 H (3.8-10.6) k/uL RBC 5.63 H (3.80-5.40) m/uL Hgb 16.7 H (11.4-16.0) gm/dL Hct 51.7 H (34.0-46.0) % PT 25.8 H (9.0-12.0) sec Chloride 97 L (98-107) mmol/L Carbon Dioxide 36 H (22-30) mmol/L BUN 70 H (7-17) mg/dL Creatinine 1.34 H (0.52-1.04) mg/dL POC Glucose (mg/dL) (75-99) mg/dL Hemoglobin A1c (4.2-6.1) % 03/31/16 Range/Units 06:27 WBC (3.8-10.6) k/uL RBC (3.80-5.40) m/uL Hgb (11.4-16.0) gm/dL Hct (34.0-46.0) % PT (9.0-12.0) sec Chloride (98-107) mmol/L Carbon Dioxide (22-30) mmol/L BUN (7-17) mg/dL Creatinine (0.52-1.04) mg/dL POC Glucose (mg/dL) 104 H (75-99) mg/dL Hemoglobin A1c (4.2-6.1) % Microbiology - Last 24 Hours (Table) 03/30/16 19:30 Throat Culture - Preliminary Throat Chest x-ray: report reviewed (Serial chest x-rays followed. Most recent with atelectasis in right base and mild pulmonary fibrosis.) Assessment and Plan (1) Atrial fibrillation with rapid ventricular response Status: Acute Plan: Impression: 1. Medical debility. 2. Atrial fibrillation. 3. Mild pulmonary fibrosis. 4. Hypertension. 5. Hyperlipidemia. 6. COPD. 7. History of stroke. Comments and plan: At this time physical therapy is ordered and I have added occupational therapy. We'll follow therapies with yourself. I discussed possible need of extra therapies with patient. Patient agrees to need but is also anxious for return to home. Both seem reasonable. We'll make recommendation (most likely tomorrow a.m.) after therapy evaluations, today.
[2016-03-31] MEDS: FLUCONAZOLE ORAL SUSP 1,400 MG/35 ML BOTTLE PO SCH (07:46)
[2016-03-31] MEDS: EZETIMIBE 10 MG TAB PO SCH (07:47)
[2016-03-31] MEDS: ATORVASTATIN 10 MG TAB PO SCH (07:47)
[2016-03-31] MEDS: VERAPAMIL 40 MG TAB PO SCH ×3 (07:47→21:21)
[2016-03-31] MEDS: ATENOLOL 25 MG TAB PO SCH ×2 (07:47→21:20)
[2016-03-31] MEDS: predniSONE 20 MG TAB PO SCH (07:47)
[2016-03-31] MEDS: guaiFENesin 600 MG TABLET.ER PO SCH ×2 (07:47→21:20)
[2016-03-31] MEDS: GABAPENTIN 100 MG CAP PO SCH ×2 (07:48→21:20)
[2016-03-31] MEDS: FUROSEMIDE 80 MG TAB PO SCH ×2 (07:48→17:22)
--- NOTE | 2016-03-31 11:48 | P.PN ---
Subjective Principal diagnosis: COPD exacerbation and atrial fibrillation with rapid ventricular response. This is a 80-year-old female with history of COPD and pulmonary fibrosis who was admitted to the hospital with increased difficulty in breathing. Patient was also in atrial fibrillation with rapid ventricular response and for this reason a cardiology consultation was requested. Atrial fibrillation, heart rate today under adequate control. Currently on by mouth Lasix. Objective - Vital Signs Vital signs: Vital Signs Temp 97.7 F 03/31/16 08:00 Pulse 80 03/31/16 08:00 Resp 14 03/31/16 08:00 BP 132/70 03/31/16 08:00 Pulse Ox 95 03/31/16 08:00 Intake & Output 03/30/16 03/31/16 03/31/16 18:59 06:59 18:59 Intake Total 240 200 Output Total 3150 1250 100 Balance -2910 -1250 100 Weight 81.6 kg 80.8 kg Intake: Oral 240 200 Output: Urine 3150 1250 100 Uretheral (Pimentel) 1475 Other: Voiding Method Diaper Diaper Diaper # Voids 1 # Bowel Movements 0 - Exam PHYSICAL EXAMINATION: HEENT: Head is atraumatic, normocephalic. Pupils equal, round. Neck is supple. There is no elevated jugular venous pressure. HEART EXAMINATION: Heart S1 and S2 irregular irregular CHEST EXAMINATION:lungs reveal scattered coarse rhonchi and wheezing throughout ABDOMEN: Soft, nontender. Bowel sounds are heard. No organomegaly noted. EXTREMITIES: 2+ peripheral pulses with no evidence of peripheral edema and no calf tenderness noted. NEUROLOGIC patient is awake, alert and oriented -3. . - Labs CBC & Chem 7: 03/31/16 05:11 03/31/16 05:11 Labs: Abnormal Lab Results - Last 24 Hours (Table) 03/30/16 03/30/16 03/31/16 Range/Units 11:54 21:14 05:11 WBC (3.8-10.6) k/uL RBC (3.80-5.40) m/uL Hgb (11.4-16.0) gm/dL Hct (34.0-46.0) % PT 25.8 H (9.0-12.0) sec Chloride (98-107) mmol/L Carbon Dioxide (22-30) mmol/L BUN (7-17) mg/dL Creatinine (0.52-1.04) mg/dL POC Glucose (mg/dL) 248 H 236 H (75-99) mg/dL 03/31/16 03/31/16 03/31/16 Range/Units 05:11 05:11 06:27 WBC 14.5 H (3.8-10.6) k/uL RBC 5.63 H (3.80-5.40) m/uL Hgb 16.7 H (11.4-16.0) gm/dL Hct 51.7 H (34.0-46.0) % PT (9.0-12.0) sec Chloride 97 L (98-107) mmol/L Carbon Dioxide 36 H (22-30) mmol/L BUN 70 H (7-17) mg/dL Creatinine 1.34 H (0.52-1.04) mg/dL POC Glucose (mg/dL) 104 H (75-99) mg/dL Microbiology - Last 24 Hours (Table) 03/30/16 19:30 Throat Culture - Preliminary Throat Assessment and Plan Plan: Assessment and plan #1 symptoms of sudden onset of shortness of breath, exacerbation of COPD. #2 chronic atrial fibrillation with rapid ventricular response, rate now under adequate control #3 history of chronic persistent atrial fibrillation, on Coumadin, INR subtherapeutic at 1.3. #4 hypertension # 5 hyperlipidemia #6 cardiac catheterization performed in April of last year revealed normal coronary arteries. #7 history of COPD #8 history of prior CVA #9 history of prior DVT #10 prior history of smoking #11 congestive heart failure, most recent echo performed in 2013 revealed a normal ejection fraction, likely diastolic in nature. #12 abnormal troponins, not consistent with acute coronary syndrome, likely secondary to oxygen supply and demand mismatch Plan From cardiology's perspective, we will recommend to continue the patient on her current medications. DNP note has been reviewed, I agree with a documented findings and plan of care. Patient was seen and examined.
[2016-03-31 11:50] LABS: Glucose,Whole Blood 150 mg/dL (75-99)
--- NOTE | 2016-03-31 12:32 | P.PN ---
Subjective Is a progress note dictated by Dr. Sunil Howard [facility] date of service 03/31/2016, in the temporary absence of Dr. Onelia Mohan. Patient seen evaluated today [id number]. Her was at bedside, reviewed her laboratories as well. She felt some improvement with the chest percussion, however she still have shortness of breath and inspiratory and expiratory wheezes. Her white count is start to going down to 14,000 with the discontinuation of IV steroid and decrease the steroid by Dr. Nicky Shea to 60 mg once a day. We did also go on guaifenesin XL 1200 mg twice a day to help her dissolve the thick sputum. Patient has inspiratory and expiratory wheezes and despite of the prolonged time of the use of the steroids, as well as found to have oropharyngeal thrush Molly, treated with Diflucan suspension swish and swallow. Patient has at [place] fibrillation with controlled ventricular response, she had a chronic elevation of BNP with a history of diastolic dysfunction. Hyperglycemia, has been gradually improving with the changing the steroid as well. On exam: HEENT negative except oropharynx still yeast on the tongue. Neck was supple no lymphadenopathy no thyromegaly trachea midline. Chest increased anteroposterior diameter with inspiratory expiratory wheezes and still scattered rhonchi. The Heart irregular irregularity was at [place] fibrillation controlled ventricular response. Patient also had mild pulmonary hypertension. The abdomen is obese positive bowel sound no tenderness and four-quadrant and the ultrasound of the kidney was normal with the underlying chronic kidney disease stage III. Extremities no edema and positive pulses bilateral and symmetrical. Assessment: #1 acute on the top of chronic COPD exacerbation not relenting with the previous treatment and we will be adding theophylline 24 hour as a trial. #2 patient currently on the steroids orally, #3 no evidence of pyrexia or elevation of temperature no spike of temperature with the discontinuation of the antibiotics. #3 hyperglycemia "patient stated she is not diabetic and she does not having treatment for diabetes as outpatient "currently the blood sugar covered with insulin however it's improving with discontinuation of the steroids. #4 leukocytosis secondary to steroid possible chronic bronchitis was assumed. #5 pulmonary fibrosis, inspissated sputum and bronchial secretion, with probably if all these trial did not help may be indeed a bronchoscopy for suction and wash all of the bronchial tree. Plan: Found that her hemoglobin and hematocrit is elevated, will obtain transferrin level and saturation as well as serum ferritin to rule out hemochromatosis. Before obtaining any genetic testing. #2 starting theophylline 24 hour once daily 200 mg as a trial to improve the bronchospasm. #3 we did order [place] hypersensitivity syndrome lab not available so far Dr. Mohan will follow the patient tomorrow. Objective - Vital Signs Vital signs: Vital Signs Temp 97.7 F 03/31/16 08:00 Pulse 80 03/31/16 08:00 Resp 14 03/31/16 08:00 BP 132/70 03/31/16 08:00 Pulse Ox 95 03/31/16 08:00 Intake & Output 03/30/16 03/31/16 03/31/16 18:59 06:59 18:59 Intake Total 240 200 Output Total 3150 1250 100 Balance -2910 -1250 100 Weight 81.6 kg 80.8 kg Intake: Oral 240 200 Output: Urine 3150 1250 100 Uretheral (Pimentel) 1475 Other: Voiding Method Diaper Diaper Diaper # Voids 1 # Bowel Movements 0 - Labs CBC & Chem 7: 03/31/16 05:11 03/31/16 05:11 Labs: Abnormal Lab Results - Last 24 Hours (Table) 03/30/16 03/31/16 03/31/16 Range/Units 21:14 05:11 05:11 WBC 14.5 H (3.8-10.6) k/uL RBC 5.63 H (3.80-5.40) m/uL Hgb 16.7 H (11.4-16.0) gm/dL Hct 51.7 H (34.0-46.0) % PT 25.8 H (9.0-12.0) sec Chloride (98-107) mmol/L Carbon Dioxide (22-30) mmol/L BUN (7-17) mg/dL Creatinine (0.52-1.04) mg/dL POC Glucose (mg/dL) 236 H (75-99) mg/dL 03/31/16 03/31/16 03/31/16 Range/Units 05:11 06:27 11:48 WBC (3.8-10.6) k/uL RBC (3.80-5.40) m/uL Hgb (11.4-16.0) gm/dL Hct (34.0-46.0) % PT (9.0-12.0) sec Chloride 97 L (98-107) mmol/L Carbon Dioxide 36 H (22-30) mmol/L BUN 70 H (7-17) mg/dL Creatinine 1.34 H (0.52-1.04) mg/dL POC Glucose (mg/dL) 104 H 150 H (75-99) mg/dL Microbiology - Last 24 Hours (Table) 03/30/16 19:30 Throat Culture - Preliminary Throat
[2016-03-31 12:58] LABS: Add Differential Manual Differential
[2016-03-31 13:00] LABS: Nucleated Red Blood Cells 0 /100 WBC (0-0); Total Cells Counted 100
[2016-03-31 13:01] LABS: Manual Review Performed
[2016-03-31] MEDS: HYDROcodone/APAP 5-325MG 1 EACH TAB PO PRN (13:05)
--- NOTE | 2016-03-31 13:34 | PN ---
She was seen on 03/31/2016. She has remained hemodynamically stable. She continues to have shortness of breath, but has not worsened over the last 24 hours. In fact, she seems slightly better. She has a cough with some loose phlegm that she is able to bring up and clears her chest somewhat when she does, cough. On physical examination, her blood pressure 132/70, respiratory rate 14, pulse rate of 80, temperature 97.7, O2 sat on 4 L by nasal cannula is 95%. HEENT reveals pupils that are equal. No jugular venous distention. Chest reveals expiratory wheeze on forced expiration. Cardiovascular system reveals an S1, S2. Abdomen is soft. There is no pedal edema. Labs reveal a white count of 14.5, hemoglobin 16.7. Sodium 144, potassium 4.5, chloride 97, bicarb 36, BUN 70, creatinine of 1.34. [id number] natriuretic peptide was 1170. IMPRESSION AT THIS TIME: 1. Asthma with chronic obstructive pulmonary disease acute exacerbation. 2. Congestive heart failure. 3. Atrial fibrillation with rapid ventricular response. 4. Pneumonia. Continue oral steroids. Increase her activity level. Continue bronchodilators, aerosolized steroids and montelukast. Optimize her fluid status. The patient has been seen by ( ) to see if she is a candidate for inpatient rehab.
[2016-03-31] MEDS: ALBUTEROL NEBULIZED 2.5 MG/3 ML INHALATION SCH ×4 (13:37→19:34)
[2016-03-31] MEDS: BUDESONIDE 0.5 MG/2 ML NEBU INHALATION SCH ×2 (13:37→19:34)
[2016-03-31 16:41] LABS: Glucose,Whole Blood 142 mg/dL (75-99)
[2016-03-31] MEDS: THEOPHYLLINE 24 HOUR 200 MG CAP.ER.24H PO SCH (17:21)
[2016-03-31] MEDS: WARFARIN 1 MG TAB PO SCH (17:23)
[2016-03-31] MEDS ORDERED: WARFARIN 2 MG TAB PO SCH (18:00)
[2016-03-31 20:38] LABS: Glucose,Whole Blood 204 mg/dL (75-99)
[2016-03-31] MEDS: MONTELUKAST 10 MG TAB PO SCH (21:21)
[2016-04-01 06:00] LABS: Glucose,Whole Blood 86 mg/dL (75-99)
[2016-04-01] MEDS: INSULIN LISPRO (humaLOG) 300 UNIT/3 ML VIAL SQ SCH ×4 (06:26→21:12)
[2016-04-01 06:39] LABS: Basophils # (A) 0.1 k/uL (0-0.2); Basophils % (A) 0 %; CH 29.9; CHCM 32.5; Calcium 9.2 mg/dL (8.4-10.2); Eosinophils % (A) 0 %; HCT 52.1 % (34.0-46.0); HDW 2.41; HGB 16.6 gm/dL (11.4-16.0); INR 3.1 (<1.1); Luc # (Auto) 0.16; Luc % (Auto) 1; Lymphocytes # (A) 1.8 k/uL (1.0-4.8); Lymphocytes % (A) 12 %; MCH 29.4 pg (25.0-35.0); MCHC 31.8 g/dL (31.0-37.0); MCV 92.3 fL (80.0-100.0); Mean Platelet Volume 6.8; Monocytes % (A) 6 %; Neutrophils # (A) 12.7 k/uL (1.3-7.7); Neutrophils % (A) 81 %; Potassium 4.3 mmol/L (3.5-5.1); Prothrombin Time 29.6 sec (9.0-12.0); RBC 5.65 m/uL (3.80-5.40); RDW 14.4 % (11.5-15.5); WBC 15.7 k/uL (3.8-10.6); WBC (Perox) 15.89
[2016-04-01] MEDS: ALBUTEROL NEBULIZED 2.5 MG/3 ML INHALATION SCH ×4 (07:32→19:51)
[2016-04-01] MEDS: BUDESONIDE 0.5 MG/2 ML NEBU INHALATION SCH ×2 (07:32→19:51)
[2016-04-01] MEDS: FUROSEMIDE 80 MG TAB PO SCH ×2 (08:18→17:07)
[2016-04-01] MEDS: GABAPENTIN 100 MG CAP PO SCH ×2 (08:18→21:11)
[2016-04-01] MEDS: FLUCONAZOLE ORAL SUSP 1,400 MG/35 ML BOTTLE PO SCH (08:18)
[2016-04-01] MEDS: guaiFENesin 600 MG TABLET.ER PO SCH ×2 (08:18→21:11)
[2016-04-01] MEDS: VERAPAMIL 40 MG TAB PO SCH ×3 (08:18→22:15)
[2016-04-01] MEDS: THEOPHYLLINE 24 HOUR 200 MG CAP.ER.24H PO SCH (08:18)
[2016-04-01] MEDS: EZETIMIBE 10 MG TAB PO SCH (08:18)
[2016-04-01] MEDS: predniSONE 20 MG TAB PO SCH (08:18)
[2016-04-01] MEDS: ATENOLOL 25 MG TAB PO SCH ×2 (08:18→21:11)
[2016-04-01] MEDS: PANTOPRAZOLE 40 MG TABLET PO SCH (08:18)
[2016-04-01] MEDS: ATORVASTATIN 10 MG TAB PO SCH (08:19)
--- NOTE | 2016-04-01 10:03 | PN ---
DATE OF SERVICE: 04/01/2016 She is looking slightly better overall. She does not have a gurgling breath sound, but has a wheeze on forced expiration. She is more comfortable lying in bed. On physical examination, her blood pressure is 100/45, respiratory rate of 18, pulse rate of 106, temperature 98.1, O2 sat on 2 L by nasal cannula is 91%. HEENT is unremarkable. Chest reveals expiratory wheeze. Cardiovascular system reveals an S1 and S2. Abdomen is soft. There is no pedal edema. Labs reveal a white count of 15.7, hemoglobin 16.6, sodium 146, potassium 4.3, chloride 97, bicarb 42, BUN 66, creatinine of 1.21. IMPRESSION: 1. Asthma with acute exacerbation. 2. Pneumonia. 3. Congestive heart failure. 4. Atrial fibrillation with rapid ventricular response. Patient is slowly improving. Would continue her on steroids, bronchodilators, aerosolized steroids. She would require a slow taper. Depending on how she does, we shall make further changes to her care.
[2016-04-01 12:13] LABS: Glucose,Whole Blood 127 mg/dL (75-99)
[2016-04-01] MEDS: IPRATROPIUM-ALBUTEROL 3 ML NEB INHALATION PRN (13:17)
[2016-04-01 15:42] LABS: % Iron Saturation 95.3 % (20-50)
--- NOTE | 2016-04-01 15:52 | P.PN ---
Subjective Principal diagnosis: COPD exacerbation and atrial fibrillation with rapid ventricular response. This is a 80-year-old female with history of COPD and pulmonary fibrosis who was admitted to the hospital with increased difficulty in breathing. Patient was also in atrial fibrillation with rapid ventricular response and for this reason a cardiology consultation was requested. Atrial fibrillation, heart rate today under adequate control. Currently on by mouth Lasix. Objective - Vital Signs Vital signs: Vital Signs Temp 98.5 F 04/01/16 12:00 Pulse 92 04/01/16 13:34 Resp 20 04/01/16 12:00 BP 114/76 04/01/16 12:00 Pulse Ox 94 L 04/01/16 12:35 Intake & Output 03/31/16 04/01/16 04/01/16 18:59 06:59 18:59 Intake Total 866 200 236 Output Total 700 1200 200 Balance 166 -1000 36 Weight 79.3 kg Intake: Oral 866 200 236 Output: Urine 700 1200 200 Other: Voiding Method Diaper Bedside Commode Bedside Commode Diaper Diaper - Exam PHYSICAL EXAMINATION: HEENT: Head is atraumatic, normocephalic. Pupils equal, round. Neck is supple. There is no elevated jugular venous pressure. HEART EXAMINATION: Heart S1 and S2 irregular irregular CHEST EXAMINATION:lungs reveal scattered coarse rhonchi and wheezing throughout ABDOMEN: Soft, nontender. Bowel sounds are heard. No organomegaly noted. EXTREMITIES: 2+ peripheral pulses with no evidence of peripheral edema and no calf tenderness noted. NEUROLOGIC patient is awake, alert and oriented -3. . - Labs CBC & Chem 7: 04/01/16 05:29 04/01/16 05:29 Labs: Abnormal Lab Results - Last 24 Hours (Table) 03/31/16 03/31/16 04/01/16 Range/Units 16:40 20:37 05:29 WBC (3.8-10.6) k/uL RBC (3.80-5.40) m/uL Hgb (11.4-16.0) gm/dL Hct (34.0-46.0) % Neutrophils # (1.3-7.7) k/uL PT 29.6 H (9.0-12.0) sec Sodium (137-145) mmol/L Chloride (98-107) mmol/L Carbon Dioxide (22-30) mmol/L BUN (7-17) mg/dL Creatinine (0.52-1.04) mg/dL POC Glucose (mg/dL) 142 H 204 H (75-99) mg/dL Iron (37-170) ug/dL TIBC (265-497) ug/dL % Saturation (20-50) % 04/01/16 04/01/16 04/01/16 Range/Units 05:29 05:29 05:29 WBC 15.7 H (3.8-10.6) k/uL RBC 5.65 H (3.80-5.40) m/uL Hgb 16.6 H (11.4-16.0) gm/dL Hct 52.1 H (34.0-46.0) % Neutrophils # 12.7 H (1.3-7.7) k/uL PT (9.0-12.0) sec Sodium 146 H (137-145) mmol/L Chloride 97 L (98-107) mmol/L Carbon Dioxide 42 H* (22-30) mmol/L BUN 66 H (7-17) mg/dL Creatinine 1.21 H (0.52-1.04) mg/dL POC Glucose (mg/dL) (75-99) mg/dL Iron 222 H (37-170) ug/dL TIBC 233 L (265-497) ug/dL % Saturation 95.3 H (20-50) % 04/01/16 Range/Units 12:12 WBC (3.8-10.6) k/uL RBC (3.80-5.40) m/uL Hgb (11.4-16.0) gm/dL Hct (34.0-46.0) % Neutrophils # (1.3-7.7) k/uL PT (9.0-12.0) sec Sodium (137-145) mmol/L Chloride (98-107) mmol/L Carbon Dioxide (22-30) mmol/L BUN (7-17) mg/dL Creatinine (0.52-1.04) mg/dL POC Glucose (mg/dL) 127 H (75-99) mg/dL Iron (37-170) ug/dL TIBC (265-497) ug/dL % Saturation (20-50) % Microbiology - Last 24 Hours (Table) 03/30/16 13:32 Blood Culture - Preliminary Blood No Growth after 48 hours 03/30/16 13:09 Blood Culture - Preliminary Blood No Growth after 48 hours 03/30/16 19:30 Throat Culture - Final Throat Assessment and Plan Plan: Assessment and plan #1 symptoms of sudden onset of shortness of breath, exacerbation of COPD. #2 chronic atrial fibrillation with rapid ventricular response, rate now under adequate control #3 history of chronic persistent atrial fibrillation, on Coumadin, INR subtherapeutic at 1.3. #4 hypertension # 5 hyperlipidemia #6 cardiac catheterization performed in April of last year revealed normal coronary arteries. #7 history of COPD #8 history of prior CVA #9 history of prior DVT #10 prior history of smoking #11 congestive heart failure, most recent echo performed in 2013 revealed a normal ejection fraction, likely diastolic in nature. #12 abnormal troponins, not consistent with acute coronary syndrome, likely secondary to oxygen supply and demand mismatch Plan From cardiology's perspective, we will recommend to continue the patient on her current medications. We will follow this patient with you now on an as-needed basis only. Please don't hesitate to call with any questions. DNP note has been reviewed, I agree with a documented findings and plan of care. Patient was seen and examined.
[2016-04-01 16:45] LABS: Glucose,Whole Blood 224 mg/dL (75-99)
[2016-04-01] MEDS: WARFARIN 1 MG TAB PO SCH (17:07)
--- NOTE | 2016-04-01 17:14 | PN ---
DATE OF SERVICE: 04/01/2016 This is a 80-year-old female who has long-standing history of chronic obstructive pulmonary disease and asthma. The patient was admitted to the hospital with severe shortness of breath and she was found to have acute tracheobronchitis and severe wheezing and acute exacerbation of COPD and the patient also was found to be in congestive heart failure and the patient was started on IV antibiotics and updraft treatments and IV Solu-Medrol and was seen by [facility] in consultation and he has a long-standing history of chronic atrial fibrillation. At the time of admission she had atrial fibrillation with rapid ventricular response. Her cardiac status became stable but her lung was found to be extremely congested and she had a CT of the chest which did not show any mass or significant abnormal lesions. The patient with all treatments, the patient is very slowly improving. Now today the patient is able to walk with help but is extremely wheezy and short of breath and Dr. Brayden Shea has discontinued the IV Solu-Medrol and started on oral prednisone. Overall prognosis is guarded. We will continue current medications and increase her activities gradually and if she continues to improve and able to ambulate without help, arrangements will be made for discharge home with home care. Diagnosis, prognosis, and therapeutic plans were discussed in detail with the patient and also with her .
[2016-04-01 20:42] LABS: Glucose,Whole Blood 118 mg/dL (75-99)
[2016-04-01] MEDS: MONTELUKAST 10 MG TAB PO SCH (21:11)
[2016-04-02 06:36] LABS: Glucose,Whole Blood 77 mg/dL (75-99)
[2016-04-02] MEDS: INSULIN LISPRO (humaLOG) 300 UNIT/3 ML VIAL SQ SCH ×4 (06:39→22:12)
[2016-04-02] MEDS: PANTOPRAZOLE 40 MG TABLET PO SCH (06:40)
[2016-04-02 06:57] LABS: INR 3.9 (<1.1); Prothrombin Time 38.5 sec (9.0-12.0)
[2016-04-02] MEDS: ALBUTEROL NEBULIZED 2.5 MG/3 ML INHALATION SCH ×4 (07:33→19:04)
[2016-04-02] MEDS: BUDESONIDE 0.5 MG/2 ML NEBU INHALATION SCH ×2 (07:33→19:04)
[2016-04-02] MEDS: ATENOLOL 25 MG TAB PO SCH ×2 (07:49→21:16)
[2016-04-02] MEDS: ATORVASTATIN 10 MG TAB PO SCH (07:49)
[2016-04-02] MEDS: FUROSEMIDE 80 MG TAB PO SCH ×2 (07:50→15:36)
[2016-04-02] MEDS: EZETIMIBE 10 MG TAB PO SCH (07:50)
[2016-04-02] MEDS: GABAPENTIN 100 MG CAP PO SCH ×2 (07:51→21:16)
[2016-04-02] MEDS: VERAPAMIL 40 MG TAB PO SCH ×3 (07:51→21:16)
[2016-04-02] MEDS: THEOPHYLLINE 24 HOUR 200 MG CAP.ER.24H PO SCH (07:51)
[2016-04-02] MEDS: predniSONE 20 MG TAB PO SCH (07:51)
[2016-04-02] MEDS: guaiFENesin 600 MG TABLET.ER PO SCH ×2 (07:52→21:16)
[2016-04-02] MEDS: FLUCONAZOLE ORAL SUSP 1,400 MG/35 ML BOTTLE PO SCH (07:52)
[2016-04-02 10:13] VITALS: BMI 32.3
[2016-04-02 11:36] LABS: Glucose,Whole Blood 108 mg/dL (75-99)
--- NOTE | 2016-04-02 13:50 | P.PN ---
Progress Note - Text This is an addendum to the progress note previously dictated, patient has diastolic congestive heart failure acute on chronic. DNP note has been reviewed, I agree with a documented findings and plan of care. Patient was seen and examined.
--- NOTE | 2016-04-02 16:34 | P.PN ---
Subjective Principal diagnosis: Acute exacerbation of asthma Patient seen and examined with family at bedside. Patient states she is still wheezing. She is feeling a little better overall. She does not wear oxygen at home. She has been working with physical therapy and using her incentive spirometer. Chest PT has been helping her expectorate sputum. Objective - Vital Signs Vital signs: Vital Signs Temp 98.9 F 04/02/16 12:00 Pulse 90 04/02/16 15:52 Resp 20 04/02/16 12:00 BP 95/68 04/02/16 12:00 Pulse Ox 98 04/02/16 12:56 Intake & Output 04/01/16 04/02/16 04/02/16 18:59 06:59 18:59 Intake Total 476 240 360 Output Total 200 350 Balance 276 -110 360 Weight 77.5 kg 77.5 kg Intake: Oral 476 240 360 Output: Urine 200 350 Other: Voiding Method Bedside Commode Bedside Commode Bedside Commode Diaper Diaper Diaper # Voids 1 1 - Exam Gen.: Alert and oriented 3, no acute distress Cardiovascular: Regular rate and rhythm, S1/S2 Lungs: Diffuse bilateral wheezing Abdomen: Soft nontender nondistended positive bowel sounds Extremities: No edema - Labs CBC & Chem 7: 04/01/16 05:29 04/01/16 05:29 Labs: Abnormal Lab Results - Last 24 Hours (Table) 04/01/16 04/01/16 04/02/16 Range/Units 16:43 20:41 05:42 PT 38.5 H (9.0-12.0) sec POC Glucose (mg/dL) 224 H 118 H (75-99) mg/dL 04/02/16 Range/Units 11:23 PT (9.0-12.0) sec POC Glucose (mg/dL) 108 H (75-99) mg/dL Microbiology - Last 24 Hours (Table) 03/30/16 13:32 Blood Culture - Preliminary Blood No Growth after 72 hours 03/30/16 13:09 Blood Culture - Preliminary Blood No Growth after 72 hours 04/01/16 03:45 Gram Stain - Preliminary Sputum Assessment and Plan Plan: Acute exacerbation of asthma Bronchospasm Pneumonia Congestive heart failure, diastolic, ejection fraction 55-60% Atrial fibrillation with RVR Leukocytosis Hypercarbia Hyperglycemia Pulmonary fibrosis O2 to maintain saturation greater than equal to 88% Diuresis Pulmicort Albuterol and duo nebs Singulair Steroid taper Mucinex Theophylline Incentive spirometry, flutter therapy, chest PT Physical and occupational therapy GI and DVT prophylaxis
[2016-04-02] MEDS: NYSTATIN 100,000 UNIT/ML SUSP 500,000 UNIT/5 ML CUP PO SCH ×2 (17:04→21:17)
[2016-04-02 17:10] LABS: Glucose,Whole Blood 165 mg/dL (75-99)
[2016-04-02] MEDS: MONTELUKAST 10 MG TAB PO SCH (21:16)
[2016-04-02 22:03] LABS: Glucose,Whole Blood 225 mg/dL (75-99)
[2016-04-02] MEDS: HYDROcodone/APAP 5-325MG 1 EACH TAB PO PRN (23:45)
[2016-04-03 06:30] LABS: Glucose,Whole Blood 63 mg/dL (75-99)
[2016-04-03 07:00] LABS: Basophils # (A) 0.1 k/uL (0-0.2); Basophils % (A) 0 %; CHCM 33.3; Eosinophils # (A) 0.1 k/uL (0-0.7); Eosinophils % (A) 0 %; HDW 2.33; HGB 16.2 gm/dL (11.4-16.0); Luc # (Auto) 0.23; Luc % (Auto) 1; Lymphocytes # (A) 2.3 k/uL (1.0-4.8); Lymphocytes % (A) 12 %; MCH 29.4 pg (25.0-35.0); MCHC 32.5 g/dL (31.0-37.0); MCV 90.5 fL (80.0-100.0); Mean Platelet Volume 7.6; Monocytes # (A) 1.2 k/uL (0-1.0); Monocytes % (A) 7 %; Neutrophils # (A) 14.7 k/uL (1.3-7.7); Neutrophils % (A) 79 %; RBC 5.52 m/uL (3.80-5.40); RDW 14.2 % (11.5-15.5); WBC 18.5 k/uL (3.8-10.6); WBC (Perox) 18.89
[2016-04-03 07:00] LABS: Glucose,Whole Blood 74 mg/dL (75-99)
[2016-04-03] MEDS: INSULIN LISPRO (humaLOG) 300 UNIT/3 ML VIAL SQ SCH ×4 (07:02→21:22)
[2016-04-03] MEDS: PANTOPRAZOLE 40 MG TABLET PO SCH (07:08)
[2016-04-03 07:20] LABS: Calcium 9.1 mg/dL (8.4-10.2); Potassium 5.3 mmol/L (3.5-5.1)
[2016-04-03] MEDS: IPRATROPIUM-ALBUTEROL 3 ML NEB INHALATION PRN (08:53)
[2016-04-03] MEDS: ALBUTEROL NEBULIZED 2.5 MG/3 ML INHALATION SCH ×4 (08:53→19:49)
[2016-04-03] MEDS: BUDESONIDE 0.5 MG/2 ML NEBU INHALATION SCH (08:53)
[2016-04-03] MEDS: predniSONE 50 MG TAB PO SCH (09:15)
[2016-04-03] MEDS: ATENOLOL 25 MG TAB PO SCH ×2 (09:15→20:21)
[2016-04-03] MEDS: VERAPAMIL 40 MG TAB PO SCH ×3 (09:15→21:22)
[2016-04-03] MEDS: NYSTATIN 100,000 UNIT/ML SUSP 500,000 UNIT/5 ML CUP PO SCH ×4 (09:16→21:22)
[2016-04-03] MEDS: guaiFENesin 600 MG TABLET.ER PO SCH ×2 (09:16→20:21)
[2016-04-03] MEDS: FUROSEMIDE 80 MG TAB PO SCH ×2 (09:17→15:29)
[2016-04-03] MEDS: ATORVASTATIN 10 MG TAB PO SCH (09:17)
[2016-04-03] MEDS: FLUCONAZOLE ORAL SUSP 1,400 MG/35 ML BOTTLE PO SCH (09:17)
[2016-04-03] MEDS: EZETIMIBE 10 MG TAB PO SCH (09:17)
[2016-04-03] MEDS: GABAPENTIN 100 MG CAP PO SCH ×2 (09:18→20:21)
[2016-04-03] MEDS: THEOPHYLLINE 24 HOUR 200 MG CAP.ER.24H PO SCH (09:18)
[2016-04-03 11:34] LABS: INR 3.1 (<1.1); Prothrombin Time 29.8 sec (9.0-12.0)
[2016-04-03 12:16] LABS: Glucose,Whole Blood 116 mg/dL (75-99)
--- NOTE | 2016-04-03 13:37 | PN ---
DATE OF SERVICE: 04/02/2016 This 80-year-old female was admitted to the hospital with severe shortness of breath and was found to have acute exacerbation of COPD and acute tracheobronchitis and acute on chronic congestive heart failure and chronic atrial fibrillation with rapid ventricular response and the patient was treated with IV antibiotics, IV Solu-Medrol, updraft treatments and was seen in consultation and followed by Dr. Coronel. The patient also was seen by [facility] in consultation. The patient's symptoms gradually improved and still she was not able to move around because of severe shortness of breath. Currently, the Solu-Medrol has been discontinued and she is on oral prednisone. She is also able to walk around with help and clinically she is improving. Her heart is in atrial fibrillation with controlled ventricular rate. She is complaining of dysphagia and she was found to have oral and possibly esophageal candidiasis and she is on Diflucan. We will also given her Mycostatin oral suspension swish and swallow. Cardiac-borjas, she is stable now but she is extremely wheezy and short of breath even now. We will try to increase her activities and if she is improving and stable, she will be able to go home in a couple of days. The prognosis is guarded. The therapeutic plan and the prognosis and also the discharge plans were discussed in detail with the patient and also with her family today.
--- NOTE | 2016-04-03 14:20 | P.PN ---
Subjective Principal diagnosis: Respiratory failure Patient seen and examined with her at bedside. The patient states that she is actually feeling a little bit better today. She does admit that she has issues with swallowing recently and has difficulty with swallowing. The patient does not wear oxygen at baseline and is currently on 4 L nasal cannula. Objective - Vital Signs Vital signs: Vital Signs Temp 96.8 F L 04/03/16 12:00 Pulse 85 04/03/16 12:00 Resp 18 04/03/16 12:00 BP 99/76 04/03/16 12:00 Pulse Ox 98 04/03/16 12:00 Intake & Output 04/02/16 04/03/16 04/03/16 18:59 06:59 18:59 Intake Total 460 360 Output Total 1 Balance 460 359 Weight 77.5 kg 77.1 kg Intake: Oral 460 360 Output: Urine 1 Other: Voiding Method Bedside Commode Toilet Toilet Diaper Bedside Commode Bedside Commode Diaper Diaper # Voids 1 2 2 # Bowel Movements 0 - Labs CBC & Chem 7: 04/03/16 06:02 04/03/16 06:02 Labs: Abnormal Lab Results - Last 24 Hours (Table) 04/02/16 04/02/16 04/03/16 Range/Units 16:59 21:48 06:02 WBC 18.5 H (3.8-10.6) k/uL RBC 5.52 H (3.80-5.40) m/uL Hgb 16.2 H (11.4-16.0) gm/dL Hct 50.0 H (34.0-46.0) % Neutrophils # 14.7 H (1.3-7.7) k/uL Monocytes # 1.2 H (0-1.0) k/uL PT (9.0-12.0) sec Potassium (3.5-5.1) mmol/L Carbon Dioxide (22-30) mmol/L BUN (7-17) mg/dL Creatinine (0.52-1.04) mg/dL Glucose (74-99) mg/dL POC Glucose (mg/dL) 165 H 225 H (75-99) mg/dL 04/03/16 04/03/16 04/03/16 Range/Units 06:02 06:28 06:57 WBC (3.8-10.6) k/uL RBC (3.80-5.40) m/uL Hgb (11.4-16.0) gm/dL Hct (34.0-46.0) % Neutrophils # (1.3-7.7) k/uL Monocytes # (0-1.0) k/uL PT (9.0-12.0) sec Potassium 5.3 H (3.5-5.1) mmol/L Carbon Dioxide 35 H (22-30) mmol/L BUN 58 H (7-17) mg/dL Creatinine 1.19 H (0.52-1.04) mg/dL Glucose 55 L (74-99) mg/dL POC Glucose (mg/dL) 63 L 74 L (75-99) mg/dL 04/03/16 04/03/16 Range/Units 10:45 11:47 WBC (3.8-10.6) k/uL RBC (3.80-5.40) m/uL Hgb (11.4-16.0) gm/dL Hct (34.0-46.0) % Neutrophils # (1.3-7.7) k/uL Monocytes # (0-1.0) k/uL PT 29.8 H (9.0-12.0) sec Potassium (3.5-5.1) mmol/L Carbon Dioxide (22-30) mmol/L BUN (7-17) mg/dL Creatinine (0.52-1.04) mg/dL Glucose (74-99) mg/dL POC Glucose (mg/dL) 116 H (75-99) mg/dL Microbiology - Last 24 Hours (Table) 04/01/16 03:45 Gram Stain - Final Sputum Sputum Culture - Final Molly albicans 03/30/16 13:32 Blood Culture - Preliminary Blood No Growth after 72 hours 03/30/16 13:09 Blood Culture - Preliminary Blood No Growth after 72 hours Assessment and Plan Plan: Acute exacerbation of asthma Bronchospasm Pneumonia Dysphagia Congestive heart failure, diastolic, ejection fraction 55-60% Atrial fibrillation with RVR Leukocytosis Hypercarbia Hyperglycemia Pulmonary fibrosis O2 to maintain saturation greater than equal to 88% Diuresis Pulmicort, increase dose to 1 mg twice a day Albuterol and duo nebs Singulair Steroid taper Mucinex Theophylline Incentive spirometry, flutter therapy, chest PT Consult speech therapy for dysphagia Consult Dr. Corona infectious disease Repeat chest x-ray today Physical and occupational therapy GI and DVT prophylaxis
--- NOTE | 2016-04-03 14:56 | XR ---
EXAMINATION TYPE: XR chest 1V portable DATE OF EXAM: 04/03/2016 2:42 PM Comparison: 03/29/2016 Clinical History: 80 year-old female shortness of breath Findings: Heart is upper limits of normal in size. Other scattered calcifications throughout the aorta. Mild di ffuse interstitial prominence is unchanged. No consolidation or pleural effusion. Impression: Chronic changes, possible chronic bronchitis/asthma. No acute process seen.
--- NOTE | 2016-04-03 16:06 | FL ---
MODIFIED SWALLOW / DEGLUTITION STUDY EXAMINATION TYPE: FL barium swallow w video DATE OF EXAM: 04/03/2016 3:22 PM CLINICAL HISTORY: 80-year-old female rule out silent aspiration. Patient with thrush and sensation of something in throat. TECHNIQUE: Deglutition study is performed utilizing thin liquid barium, honey and nectar thick liqui d barium, barium thick applesauce. COMPARISON: None. FINDINGS: The oral and pharyngeal phases show delayed swallow. There is diminished laryngeal excursion and coat ing of the posterior pharynx suggesting diminished pharyngeal stripping. Mild vallecular residuals are present. In addition, there is marked thickening of the posterior tongu e effacing the vallecular space. No penetration or aspiration was demonstrated. IMPRESSION: 1. No penetration or aspiration. 2. However, there is delayed swallow, mild residuals, and diminished laryngeal excursion. Findings pr obably a consequence of patient's underlying thrush. 3. Marked thickening of the posterior tongue effacing the vallecular space. Direct visualization tania mmended to exclude underlying mass. Thickening from inflammation is also possible. 4. Please refer to speech therapist notes for further details if necessary.
[2016-04-03 16:46] LABS: Glucose,Whole Blood 205 mg/dL (75-99)
--- NOTE | 2016-04-03 17:10 | CONS ---
DATE OF CONSULTATION: 04/03/2016 REASON FOR CONSULTATION: Dysphagia and possible oropharyngeal candidiasis. HISTORY OF PRESENT ILLNESS: The patient is a 80-year-old female who was brought into the ER at [facility] on 03/22/2016 with the chief complaint of increasing shortness of breath. Apparently her symptoms had been going on for a day or two before she presented to hospital. The patient also had a cough with some clear production. No significant fever, nausea or vomiting. Subsequently the patient did have a chest x-ray on 03/22 that showed no acute process. The patient also had a CT of the chest done on 03/25 which did show atherosclerotic vascular disease, interstitial pulmonary density consistent with pulmonary fibrosis. No mass. Patient has been treated with broad-spectrum antibiotics and steroids. Patient's overall breathing has improved; however, the patient started having some difficulty swallowing and evidence of oral thrush. That has been treated with Diflucan. Nystatin swish and swallow was added today, and I was asked to see the patient for further recommendation regarding antifungal therapy. The patient denies having any nausea or vomiting, denies having any diarrhea. REVIEW OF SYSTEMS: CONSTITUTIONAL: Positive for weakness. No fever. EYES: No complaint. ENT: As per HPI. RESPIRATORY: As per HPI. CARDIOVASCULAR: No complaint. GENITOURINARY: No complaint. GASTROINTESTINAL: No complaint. MUSCULOSKELETAL: No complaint. INTEGUMENTARY: No complaint. PSYCHOLOGIC: No complaint. ENDORINE: No complaint. NEUROLOGIC: No complaint. PAST MEDICAL HISTORY: 1. Atrial fibrillation. 2. Heart failure. 3. COPD. 4. CVA. 5. TIA. 6. DVT. 7. Hyperlipidemia. 8. Hypertension. 9. Pneumonia. 10. Diverticulitis. PAST SURGICAL HISTORY: 1. Adenoidectomy. 2. Appendectomy. 3. Heart catheterization. 4. Hysterectomy. 5. Tonsillectomy. SOCIAL HISTORY: Remote history of smoking. No drinking or drug use. FAMILY HISTORY: Father with history of lung cancer, aneurysm; has an [facility]. ALLERGIES: NO KNOWN DRUG ALLERGIES. Medications currently include: 1. [place]. 2. Ventolin. 3. DuoNeb. 4. Tenormin. 5. Lipitor. 6. Tessalon Perles. 7. Pulmicort. 8. Zetia. 9. Diflucan suspension 300 daily. 10. Lasix. 11. Neurontin. 12. Mucinex. 13. Humalog. 14. Mycostatin oral suspension. 15. Theophylline. 16. Coumadin. On examination, her blood pressure is 99/76 with pulse of 85, temperature 96.8. She is 98% on room air. General description is an elderly female up in the bed in no distress. No tachypnea or accessory muscle of respiration use. HEENT examination shows no pallor or scleral icterus. Oral mucous membrane is dry. There is evidence of oral thrush. NECK: Trachea is central. No thyromegaly. LUNGS: Unlabored breathing. Decreased breath sounds at the bases. Occasional wheeze. HEART: S1, S2. Irregular rhythm. ABDOMEN: Soft. No tenderness. EXTREMITIES: No edema of the feet. SKIN EXAMINATION: No rash or mass palpable. Neurologically the patient is awake, alert, oriented x3. Mood and affect normal. LABS: Hemoglobin is 16.2, white count 18.5, BUN of 58, creatinine 1.19. Sputum has been Molly albicans. Blood culture has been negative. DIAGNOSTIC IMPRESSION AND PLAN: Patient admitted to hospital with difficulty breathing and treated for chronic obstructive pulmonary disease exacerbation with tracheobronchitis; no evidence of pneumonia clinically as well as radiologically. Now developing difficulty with swallowing and dysphagia in a patient who does have evidence of thrush, likely representing oropharyngeal candidiasis. PLAN: 1. We will lower the Diflucan to 200 mg p.o. daily and nystatin swish and swallow. 2. Will continue to monitor closely. If the patient's symptoms do not resolve, patient may require an upper GI/EGD and possible biopsy. 3. Will follow up on the clinical condition and cultures to further adjust medication if needed. Thank you for this consultation. Will follow this patient along with you.
[2016-04-03] MEDS: BUDESONIDE 1 MG/2 ML NEBU INHALATION SCH (19:49)
[2016-04-03] MEDS: MONTELUKAST 10 MG TAB PO SCH (20:21)
[2016-04-03 20:37] LABS: Glucose,Whole Blood 150 mg/dL (75-99)
--- NOTE | 2016-04-03 22:26 | PN ---
DATE OF SERVICE: 04/03/2016 This 80-year-old white female was admitted to the hospital with acute exacerbation of COPD, acute tracheobronchitis, acute on chronic congestive heart failure and atrial fibrillation with rapid ventricle response. The patient was seen by [facility] in consultation and Dr. Coronel in consultation. Patient received IV antibiotics, updraft treatments and IV Solu-Medrol. Her heart rate has come down and she is still in atrial fibrillation. Patient's respiratory problem is improving very gradually. She is also getting physical therapy to improve her ambulation. She is extremely wheezy and extremely short of breath on exertion. She recently developed difficulty in swallowing, and she is getting treatment for candidiasis involving the esophagus and the mouth normal. She is getting Diflucan and Mycostatin oral suspension. She continues to have dysphagia. We will get a barium swallow to rule out any other problems. She is alert and oriented. Her vital signs seem to be stable, but she is still extremely short of breath and wheezy. Patient was seen by Dr. Brayden Shea in consultation. Patient is currently receiving prednisone; the IV Solu-Medrol was discontinued 2 days ago. Prognosis is guarded. Will continue current medications and will get a barium swallow today.
[2016-04-04 05:49] LABS: Glucose,Whole Blood 78 mg/dL (75-99)
[2016-04-04] MEDS: INSULIN LISPRO (humaLOG) 300 UNIT/3 ML VIAL SQ SCH ×4 (05:57→21:24)
[2016-04-04] MEDS: PANTOPRAZOLE 40 MG TABLET PO SCH (07:00)
[2016-04-04 07:10] LABS: INR 2.9 (<1.1); Prothrombin Time 28.1 sec (9.0-12.0)
[2016-04-04] MEDS: ALBUTEROL NEBULIZED 2.5 MG/3 ML INHALATION SCH ×4 (07:41→20:25)
[2016-04-04] MEDS: BUDESONIDE 1 MG/2 ML NEBU INHALATION SCH (07:41)
[2016-04-04] MEDS: FUROSEMIDE 80 MG TAB PO SCH ×2 (08:40→17:13)
[2016-04-04] MEDS: predniSONE 50 MG TAB PO SCH (08:40)
[2016-04-04] MEDS: guaiFENesin 600 MG TABLET.ER PO SCH ×2 (08:40→21:23)
[2016-04-04] MEDS: NYSTATIN 100,000 UNIT/ML SUSP 500,000 UNIT/5 ML CUP PO SCH ×4 (08:40→21:23)
[2016-04-04] MEDS: ATORVASTATIN 10 MG TAB PO SCH (08:41)
[2016-04-04] MEDS: EZETIMIBE 10 MG TAB PO SCH (08:41)
[2016-04-04] MEDS: THEOPHYLLINE 24 HOUR 200 MG CAP.ER.24H PO SCH (08:41)
[2016-04-04] MEDS: VERAPAMIL 40 MG TAB PO SCH ×3 (08:41→21:23)
[2016-04-04] MEDS: GABAPENTIN 100 MG CAP PO SCH ×2 (08:41→21:23)
[2016-04-04] MEDS: ATENOLOL 25 MG TAB PO SCH ×2 (08:41→21:23)
[2016-04-04] MEDS: FLUCONAZOLE 100 MG TAB PO SCH (10:58)
[2016-04-04 11:51] LABS: Glucose,Whole Blood 91 mg/dL (75-99)
--- NOTE | 2016-04-04 14:05 | P.PN ---
Subjective Principal diagnosis: Respiratory failure Patient seen and examined with her at bedside. The patient states her breathing is better today. She still having difficulty with swallowing. She's been on room air all night and this morning. Her O2 saturation remains 94%. She is sitting up at bedside eating lunch. Objective - Vital Signs Vital signs: Vital Signs Temp 97.9 F 04/04/16 11:14 Pulse 95 04/04/16 12:00 Resp 18 04/04/16 12:00 BP 107/64 04/04/16 11:14 Pulse Ox 94 L 04/04/16 11:14 Intake & Output 04/03/16 04/04/16 04/04/16 18:59 06:59 18:59 Intake Total 460 200 340 Output Total 301 475 Balance 159 -275 340 Weight 77 kg Intake: Oral 460 200 340 Output: Urine 301 475 Other: Voiding Method Toilet Bedside Commode Bedside Commode Bedside Commode Diaper Diaper Diaper # Voids 2 # Bowel Movements 0 - Exam Gen.: Patient is alert and oriented 3, no acute distress Cardiovascular: Regular rate and rhythm, S1/S2 Lungs: Upper airway rhonchi Abdomen: Soft nontender nondistended positive bowel sounds Extremities: No edema - Labs CBC & Chem 7: 04/03/16 06:02 04/03/16 06:02 Labs: Abnormal Lab Results - Last 24 Hours (Table) 04/03/16 04/03/16 04/04/16 Range/Units 16:41 20:37 06:17 PT 28.1 H (9.0-12.0) sec POC Glucose (mg/dL) 205 H 150 H (75-99) mg/dL Microbiology - Last 24 Hours (Table) 03/30/16 13:32 Blood Culture - Preliminary Blood No Growth after 96 hours 03/30/16 13:09 Blood Culture - Preliminary Blood No Growth after 96 hours 04/01/16 03:45 Gram Stain - Final Sputum Sputum Culture - Final Molly albicans Assessment and Plan Plan: Acute exacerbation of asthma Bronchospasm Pneumonia Dysphagia Molly esophagitis and thrush Congestive heart failure, diastolic, ejection fraction 55-60% Atrial fibrillation with RVR Leukocytosis Hypercarbia Hyperglycemia Pulmonary fibrosis O2 to maintain saturation greater than equal to 88% Diuresis Pulmicort, decrease Pulmicort to 0.5 mg twice a day Albuterol and duo nebs Singulair Steroid taper Mucinex Theophylline Incentive spirometry, flutter therapy, chest PT ABX per Dr. Nicole infectious disease Physical and occupational therapy GI and DVT prophylaxis
[2016-04-04 16:50] LABS: Glucose,Whole Blood 183 mg/dL (75-99)
[2016-04-04] MEDS: WARFARIN 1 MG TAB PO SCH (17:16)
--- NOTE | 2016-04-04 18:35 | PN ---
This 80-year-old female who was admitted with acute exacerbation of COPD and severe shortness of breath, wheezing and acute tracheobronchitis and patient also was found to have acute on chronic congestive heart failure, chronic atrial fibrillation with rapid ventricular response and the patient was seen by shingle trimmer and also assembler clip on sunglasses in consultation and she received IV antibiotics and updraft treatment and IV Solu-Medrol and her ventricular rate has come down to within normal range. Her bronchitis and breathing difficulties gradually improved. The patient was complaining of some difficulty in swallowing and she was found to have thrush infection and the patient currently receiving Diflucan and Mycostatin oral suspension and patient had a barium swallow yesterday and it showed possible thickening of the lining of the esophagus and possibly due to ( ) infection, possible mass in the posterior aspect of the tongue cannot be excluded. We will get a consultation from commercial airline pilot for direct visualization and possible biopsy. Dr. Johnson has already been consulted. The patient is breathing slightly easier today and she still had difficulty in swallowing. Otherwise, her vital signs remain stable. Overall prognosis is guarded. Will continue current medications diagnosis and prognosis, and also the therapeutic plans were discussed in detail with the patient and with her family.
[2016-04-04] MEDS: BUDESONIDE 0.5 MG/2 ML NEBU INHALATION SCH (20:25)
[2016-04-04 21:07] LABS: Glucose,Whole Blood 197 mg/dL (75-99)
[2016-04-04] MEDS: MONTELUKAST 10 MG TAB PO SCH (21:23)
[2016-04-05] MEDS: INSULIN LISPRO (humaLOG) 300 UNIT/3 ML VIAL SQ SCH ×4 (06:47→22:18)
[2016-04-05] MEDS: PANTOPRAZOLE 40 MG TABLET PO SCH (06:48)
[2016-04-05 06:51] LABS: Glucose,Whole Blood 71 mg/dL (75-99)
[2016-04-05 07:45] LABS: INR 2.4 (<1.1); Prothrombin Time 22.8 sec (9.0-12.0)
[2016-04-05] MEDS: EZETIMIBE 10 MG TAB PO SCH (08:49)
[2016-04-05] MEDS: FLUCONAZOLE 100 MG TAB PO SCH (08:49)
[2016-04-05] MEDS: ATENOLOL 25 MG TAB PO SCH ×2 (08:49→20:45)
[2016-04-05] MEDS: ATORVASTATIN 10 MG TAB PO SCH (08:49)
[2016-04-05] MEDS: FUROSEMIDE 80 MG TAB PO SCH ×2 (08:50→17:14)
[2016-04-05] MEDS: GABAPENTIN 100 MG CAP PO SCH ×2 (08:50→20:45)
[2016-04-05] MEDS: NYSTATIN 100,000 UNIT/ML SUSP 500,000 UNIT/5 ML CUP PO SCH ×4 (08:51→22:19)
[2016-04-05] MEDS: guaiFENesin 600 MG TABLET.ER PO SCH ×2 (08:51→20:45)
[2016-04-05] MEDS: THEOPHYLLINE 24 HOUR 200 MG CAP.ER.24H PO SCH (08:51)
[2016-04-05] MEDS: predniSONE 20 MG TAB PO SCH (08:51)
[2016-04-05] MEDS: VERAPAMIL 40 MG TAB PO SCH ×3 (08:51→22:19)
[2016-04-05] MEDS: ALBUTEROL NEBULIZED 2.5 MG/3 ML INHALATION SCH ×5 (09:21→20:15)
[2016-04-05] MEDS: BUDESONIDE 0.5 MG/2 ML NEBU INHALATION SCH ×2 (09:21→20:14)
[2016-04-05 11:52] LABS: Glucose,Whole Blood 83 mg/dL (75-99)
--- NOTE | 2016-04-05 15:11 | CONS ---
DATE OF CONSULTATION: 04/05/2016 REQUESTING PHYSICIAN: Dr. Kwame Mohan. REASON FOR CONSULTATION: Dysphagia and heartburn. HISTORY OF PRESENT ILLNESS: The patient is a 80-year-old pleasant lady admitted to the hospital about 2 weeks ago with acute onset of severe cough followed by worsening shortness of breath, and diagnosed with acute bronchitis. While in the hospital she developed some dysphagia and heartburn and we are hence, consulted in regards to this issue. The patient states that she has a severe heartburn for the last one week duration, mostly in the epigastric area as well as in the lower sternal area and occasionally she feels like her good gets caught while she is eating. Often happens with solids, but never with liquids. Never had these problems in the past. She did have a modified barium swallow done with fluoroscopy guidance 2 days ago that showed no evidence of penetration or aspiration; however, there was delayed swallow noted with mild residuals and ( ). Also there was some marked thickening of the posterior tongue identified. In the meantime because of persistent symptoms we are consulted for further evaluation. The patient never had similar symptoms in the past. She denies any odynophagia. Her past medical history is significant for chronic atrial fibrillation, congestive heart failure, COPD, history of CVA in the past, hypertension, hyperlipidemia, and DVT in the past. PAST SURGICAL HISTORY: Adenoidectomy, appendectomy, cardiac cath, hysterectomy, tonsillectomy. MEDICATIONS AT HOME: Coumadin, Neurontin, Lasix, Vytorin, Tenormin. SOCIAL HISTORY: Remote history of smoking. No alcohol use. FAMILY HISTORY: Unremarkable. REVIEW OF SYSTEMS: CARDIOPULMONARY: No chest pain or shortness of breath. GENITOURINARY: No dysuria or hematuria. MUSCULOSKELETAL: Unremarkable. SKIN: Unremarkable. ENDOCRINE: Unremarkable. PSYCHIATRIC: Unremarkable. NEUROLOGY: Unremarkable. ENT/VISION: Unremarkable. CONSTITUTIONAL: No recent weight loss. No fever, chills or night sweats. On physical examination, blood pressure 115/68, pulse is 73, temperature 97.8. HEENT: Unremarkable. Conjunctivae pink. Sclerae anicteric. Oral cavity, no lesions. NECK: No JVD or lymph node enlargement. CHEST: Clear to auscultation. HEART: Regular rate and rhythm. ABDOMEN: Soft. Bowel sounds are positive. No organomegaly. EXTREMITIES: No pedal edema. SKIN: No rashes. NEURO: Alert and oriented x3. No focal deficits. Labs from today showed a PT of 22.8 and INR 2.4. IMPRESSION: 1. This is a lady who has been complaining of severe heartburn for the last one week duration associated with intermittent dysphagia to solids for the same duration of time. Never had these in the past. She did not have any symptoms during the hospitalization. Fluoroscopic modified barium swallow showed some thickening in the posterior part of the tongue as well as slight delay in swallowing with residuals but no evidence of aspiration or penetration noted. 2. History of atrial fibrillation on Coumadin. 3. Chronic obstructive pulmonary disease exacerbation with acute bronchitis. RECOMMENDATIONS: 1. I will obtain a barium esophagogram to evaluate the entire esophagus and based on that I will decide if she needs to have direct visualization. 2. In regards to the abnormality noted on the recent modified barium swallow that showed marked thickening of the posterior part of the tongue. ENT evaluation is recommended. 3. Continue with proton pump inhibitors. The patient is already receiving Protonix 40 mg daily. 4. Will continue to follow the patient closely during her hospital stay. Thank you for this consultation.
--- NOTE | 2016-04-05 15:37 | P.PN ---
Subjective Principal diagnosis: Respiratory failure Patient seen and examined with at bedside. Patient was ambulating in the dahl and states her breathing is much better. She is not short of breath with exertion. She is still having issues with her swallowing. Objective - Vital Signs Vital signs: Vital Signs Temp 97.2 F L 04/05/16 12:00 Pulse 86 04/05/16 12:00 Resp 18 04/05/16 12:00 BP 92/64 04/05/16 12:00 Pulse Ox 95 04/05/16 12:00 Intake & Output 04/04/16 04/05/16 04/05/16 18:59 06:59 18:59 Intake Total 700 500 Output Total 1200 750 Balance -500 -250 Weight 79.4 kg Intake: Oral 700 500 Output: Urine 1200 750 Other: Voiding Method Bedside Commode Bedside Commode Toilet Diaper Diaper Bedside Commode Diaper # Voids 2 1 - Exam Gen.: Patient is alert and oriented 3, no acute distress Cardiovascular: Regular rate and rhythm, S1/S2 Lungs: Upper airway rhonchi Abdomen: Soft nontender nondistended positive bowel sounds Extremities: No edema - Labs CBC & Chem 7: 04/03/16 06:02 04/03/16 06:02 Labs: Abnormal Lab Results - Last 24 Hours (Table) 04/04/16 04/04/16 04/05/16 Range/Units 16:49 20:46 06:22 PT 22.8 H (9.0-12.0) sec POC Glucose (mg/dL) 183 H 197 H (75-99) mg/dL 04/05/16 Range/Units 06:47 PT (9.0-12.0) sec POC Glucose (mg/dL) 71 L (75-99) mg/dL Microbiology - Last 24 Hours (Table) 03/30/16 13:09 Blood Culture - Final Blood No Growth after 144 hours 03/30/16 13:32 Blood Culture - Preliminary Blood No Growth after 120 hours Assessment and Plan Plan: Acute exacerbation of asthma Bronchospasm Pneumonia Dysphagia GERD Molly esophagitis and thrush Congestive heart failure, diastolic, ejection fraction 55-60% Atrial fibrillation with RVR Leukocytosis Hypercarbia Hyperglycemia Pulmonary fibrosis O2 to maintain saturation greater than equal to 88% Diuresis Pulmicort, decrease Pulmicort to 0.5 mg twice a day Albuterol and duo nebs Singulair Steroid taper Mucinex Theophylline GI recommendations: Barium esophagram, ENT evaluation for direct visualization of the thickening of the posterior tongue Incentive spirometry, flutter therapy, chest PT ABX per Dr. Nicole infectious disease Physical and occupational therapy GI and DVT prophylaxis
--- NOTE | 2016-04-05 16:43 | PN ---
DATE OF SERVICE: 04/05/2016 This is a 80-year-old white female whose main problem was acute tracheobronchitis and COPD with acute exacerbation. She came to the emergency room because of severe shortness of breath and cough and she was also found to have acute on chronic congestive heart failure. Chronic atrial fibrillation with a rapid ventricular response and she was treated with IV antibiotics and IV Solu-Medrol, updraft treatments and was seen by Dr. Coronel in consultation and also she was being followed by [facility]. Patient's improvement was very gradual and the patient developed severe difficulty in swallowing and she had a barium swallow which showed possible inflammation due to possibly due to thrush infection. She has already been on Diflucan and Mycostatin was suspicion for Molly infection. The patient barium swallow showed a possible mass in the posterior aspect of the tongue and Dr. Johnson has been consulted to do an upper endoscopy as recommended by the radiologist. Dr. Johnson has already seen the patient and she is getting upper GI which will be done possibly tomorrow. Otherwise, the patient is improving but her oral intake is extremely poor. We will give her some Ensure as tolerated. Her vital signs are otherwise stable. The overall prognosis is guarded. The clinical findings and the therapeutic plans were discussed again with the patient today.
[2016-04-05 16:55] LABS: Glucose,Whole Blood 139 mg/dL (75-99)
[2016-04-05] MEDS: WARFARIN 1 MG TAB PO SCH (17:35)
[2016-04-05] MEDS: MONTELUKAST 10 MG TAB PO SCH (20:45)
[2016-04-05 22:16] LABS: Glucose,Whole Blood 146 mg/dL (75-99)
[2016-04-06] MEDS: ALBUTEROL NEBULIZED 2.5 MG/3 ML INHALATION SCH ×4 (07:31→21:27)
[2016-04-06] MEDS: BUDESONIDE 0.5 MG/2 ML NEBU INHALATION SCH ×2 (07:31→21:19)
[2016-04-06 07:33] LABS: Glucose,Whole Blood 71 mg/dL (75-99)
[2016-04-06] MEDS: INSULIN LISPRO (humaLOG) 300 UNIT/3 ML VIAL SQ SCH ×4 (07:44→21:36)
[2016-04-06] MEDS: FLUCONAZOLE 100 MG TAB PO SCH (07:45)
[2016-04-06] MEDS: FUROSEMIDE 80 MG TAB PO SCH ×2 (07:45→16:05)
[2016-04-06] MEDS: PANTOPRAZOLE 40 MG TABLET PO SCH (07:45)
[2016-04-06] MEDS: ATENOLOL 25 MG TAB PO SCH ×2 (07:45→20:34)
[2016-04-06] MEDS: ATORVASTATIN 10 MG TAB PO SCH (07:45)
[2016-04-06] MEDS: GABAPENTIN 100 MG CAP PO SCH ×2 (07:45→20:35)
[2016-04-06] MEDS: EZETIMIBE 10 MG TAB PO SCH (07:45)
[2016-04-06] MEDS: guaiFENesin 600 MG TABLET.ER PO SCH ×2 (07:46→20:35)
[2016-04-06] MEDS: NYSTATIN 100,000 UNIT/ML SUSP 500,000 UNIT/5 ML CUP PO SCH ×4 (07:46→21:36)
[2016-04-06] MEDS: VERAPAMIL 40 MG TAB PO SCH ×3 (07:46→21:36)
[2016-04-06] MEDS: predniSONE 20 MG TAB PO SCH (07:46)
[2016-04-06] MEDS: THEOPHYLLINE 24 HOUR 200 MG CAP.ER.24H PO SCH (07:46)
[2016-04-06 09:14] LABS: INR 2.3 (<1.1); Prothrombin Time 21.8 sec (9.0-12.0)
--- NOTE | 2016-04-06 10:58 | FL ---
EXAMINATION TYPE: FL double contrast upper GI with esophagus DATE OF EXAM: 04/06/2016 9:53 AM COMPARISON: NONE HISTORY: 80-year-old female impaired swallow, patient with brush, epigastric and lower sternal pain. Total fluoroscopy time: 2 minutes 12 seconds. TECHNIQUE: A double contrast esophagram and UGI study is performed. FINDINGS: Incidentally, moderate silent aspiration is noted. The hypopharyngeal anatomy is preserved. The upper third thoracic esophagus shows normal course, caliber, and mucosa without any filling defec t. The mid and lower third thoracic esophagus shows moderate tertiary peristalsis, mild diffuse mucosal irregularity, and possible areas of small ulcerations along the lower third esophagus, for example, i mage 25. There is a small to moderate-sized sliding hiatal hernia and moderate spontaneous gastroesophageal re flux noted. There appears to be some circumferential narrowing at the A ring of the lower esophagus. The stomach and duodenum are free of any persistent filling defect and demonstrate a normal mucosal p attern. IMPRESSION: 1. Incidentally, moderate silent aspiration is noted. As aspiration was not seen during the patient's dynamic swallow study, aspiration on the current exam may be due to the current technique utilized i ncluding chin lifted positioning. Consider speech pathology consultation to recommend any protective maneuvers for the patient as a precautionary measure. 2. Mild diffuse mucosal irregularity of the mid to lower third thoracic esophagus with possible small areas of ulceration along the lower third esophagus. Given the patient's history, ange esophagiti s is not excluded. Follow-up with direct visualization after successful clinical treatment. 3. Moderate-sized sliding hiatal hernia and spontaneous episode of moderate gastroesophageal reflux. 4. Some circumferential narrowing at the A ring just above the esophageal vestibule could reflect a m ild stricture.
[2016-04-06 11:58] LABS: Glucose,Whole Blood 131 mg/dL (75-99)
[2016-04-06 17:03] LABS: Glucose,Whole Blood 195 mg/dL (75-99)
[2016-04-06] MEDS: WARFARIN 1 MG TAB PO SCH (17:06)
--- NOTE | 2016-04-06 19:30 | PN ---
DATE OF SERVICE: 04/06/2016 Patient is a 80-year-old pleasant lady admitted to the hospital with acute bronchitis, pneumonia for which she has been in the hospital for 2 weeks. I was consulted to see her yesterday because of dysphagia as well as pain with swallowing in her sternal area. She had modified barium swallow done 2 days ago, which was unremarkable. Because of symptoms in the lower esophagus, I scheduled her for a barium esophagogram which was done early this morning and results are still pending at the time of this dictation. The patient in the meantime, states that she is feeling all right and she is feeling fine. She still has pain with swallowing. Denies any nausea or vomiting. On physical examination, she appears comfortable in no apparent distress. Vitals as are stable. Blood is 130/86, pulse rate is 85, temperature 97.1. HEENT: Unremarkable. Conjunctivae pink. Sclerae anicteric. Oral cavity, no lesions. NECK: No JVD or lymph node enlargement. CHEST: Clear to auscultation. HEART: Regular rate and rhythm. ABDOMEN: Soft. Bowel sounds are positive. No organomegaly. EXTREMITIES: No pedal edema. SKIN: No rashes. NEURO: Alert and oriented x3. No focal deficits. Labs from today: PT is 21.8 and INR is 2.3. IMPRESSION: 1. Dysphagia and pain while swallowing for the last one week duration. The patient had barium esophagogram this morning and results are still pending at the time of this dictation. Possibly we are dealing with acid reflux, but possibility of esophageal stricture cannot be excluded. 2. Chronic obstructive pulmonary disease/acute bronchiectasis/pneumonia on broad-spectrum antibiotics. RECOMMENDATIONS: I will await the barium esophagogram results and based on that I will decide if she needs to have any endoscopic intervention. In the meantime, she can continue with soft diet and will follow her closely.
--- NOTE | 2016-04-06 20:28 | PN ---
DATE OF SERVICE: 04/06/2016 This 80-year-old white female who was admitted with acute tracheobronchitis, acute exacerbation of COPD and also congestive heart failure and atrial fibrillation with rapid ventricular response. The patient was seen by [facility] and also environmental engineering aide in consultation. Patient's respiratory status improved very slowly and still she is very short of breath and has some wheezing but lately she developed some dysphagia and it was presumed to be due to ( ) infection and patient is on Diflucan and Mycostatin was ( ). Barium swallow showed possible swelling and mass in the posterior aspect of the tongue and GI consultation was obtained. Dr. Johnson saw the patient and she ordered a barium swallow with upper GI and she had the test this morning but the report is not available yet. Overall the patient is improving symptom-borjas and we will await Dr. Johnson's evaluation and recommendations. Otherwise patient's vital signs are stable. Cardiac-borjas also she is stable. She will be discharged home after evaluation by Dr. Johnson. Prognosis is guarded.
[2016-04-06] MEDS: MONTELUKAST 10 MG TAB PO SCH (20:35)
[2016-04-06 21:18] LABS: Glucose,Whole Blood 165 mg/dL (75-99)
[2016-04-06] MEDS: IPRATROPIUM-ALBUTEROL 3 ML NEB INHALATION PRN (21:19)
[2016-04-07] MEDS: BUDESONIDE 0.5 MG/2 ML NEBU INHALATION SCH ×2 (07:17→19:39)
[2016-04-07] MEDS: ALBUTEROL NEBULIZED 2.5 MG/3 ML INHALATION SCH ×4 (07:17→19:39)
[2016-04-07 07:20] LABS: Glucose,Whole Blood 70 mg/dL (75-99)
[2016-04-07] MEDS: INSULIN LISPRO (humaLOG) 300 UNIT/3 ML VIAL SQ SCH ×4 (07:43→22:31)
[2016-04-07] MEDS: PANTOPRAZOLE 40 MG TABLET PO SCH (07:50)
[2016-04-07] MEDS: ATENOLOL 25 MG TAB PO SCH ×2 (07:50→22:46)
[2016-04-07] MEDS: FLUCONAZOLE 100 MG TAB PO SCH (07:51)
[2016-04-07] MEDS: EZETIMIBE 10 MG TAB PO SCH (07:51)
[2016-04-07] MEDS: ATORVASTATIN 10 MG TAB PO SCH (07:51)
[2016-04-07] MEDS: GABAPENTIN 100 MG CAP PO SCH ×2 (07:52→20:32)
[2016-04-07] MEDS: predniSONE 20 MG TAB PO SCH (07:52)
[2016-04-07] MEDS: THEOPHYLLINE 24 HOUR 200 MG CAP.ER.24H PO SCH (07:52)
[2016-04-07] MEDS: FUROSEMIDE 80 MG TAB PO SCH ×2 (07:52→17:23)
[2016-04-07] MEDS: guaiFENesin 600 MG TABLET.ER PO SCH ×2 (07:52→20:32)
[2016-04-07] MEDS: NYSTATIN 100,000 UNIT/ML SUSP 500,000 UNIT/5 ML CUP PO SCH ×4 (07:52→22:31)
[2016-04-07] MEDS: VERAPAMIL 40 MG TAB PO SCH ×3 (07:53→22:47)
[2016-04-07 09:26] LABS: INR 2.8 (<1.1); Prothrombin Time 27.3 sec (9.0-12.0)
--- NOTE | 2016-04-07 10:50 | PN ---
DATE OF SERVICE: 04/06/2016 REASON FOR FOLLOW-UP: Oropharyngeal candidiasis. INTERVAL HISTORY: The patient is afebrile. She is feeling slightly better. sore throat is slightly improved. No nausea or vomiting. Denies having any chest pain. Occasional cough. No abdominal pain. No diarrhea. On examination, blood pressure 134/73 with a pulse of 86, temperature 96.6. She is 94% on room air. General description is an elderly female lying in bed in no distress. RESPIRATORY SYSTEM: Unlabored breathing. Some coarse breath sounds at the base. HEART: S1, S2. Regular rate and rhythm. ABDOMEN: Soft, no tenderness. LABS: No new labs have been obtained today. The patient did have upper GI barium swallow that did show irregularity of the esophageal mucosa with question of esophageal candidiasis. DIAGNOSTIC IMPRESSION AND PLAN: Patient with dysphagia and difficulty swallowing likely esophageal candidiasis. The patient did have evidence of thrush. The patient at this time, will continue on the diflucan along with nystatin swish and swallow. Continue supportive care. MTDD
[2016-04-07 12:28] LABS: Glucose,Whole Blood 150 mg/dL (75-99)
[2016-04-07] MEDS ORDERED: predniSONE 10 MG TAB PO SCH (13:38)
--- NOTE | 2016-04-07 13:39 | P.PN ---
Subjective Principal diagnosis: Respiratory failure Patient seen and examined with her at bedside. The patient is tearful. She states she just wants to go home and "they want to do more testing." Patient is encouraged to stay and get testing for her difficulty with swallowing so that she does not have continued respiratory issues and recurrent respiratory infections. She is agreeable. The patient states her breathing is better today. Objective - Vital Signs Vital signs: Vital Signs Temp 96.3 F L 04/07/16 07:00 Pulse 82 04/07/16 11:17 Resp 18 04/07/16 07:00 BP 116/71 04/07/16 07:00 Pulse Ox 90 L 04/07/16 07:20 Intake & Output 04/06/16 04/07/16 04/07/16 18:59 06:59 18:59 Other: Voiding Method Toilet Toilet Bedside Commode Diaper Diaper # Voids 2 1 - Exam Gen.: Patient is alert and oriented 3, no acute distress Cardiovascular: Regular rate and rhythm, S1/S2 Lungs: Upper airway rhonchi Abdomen: Soft nontender nondistended positive bowel sounds Extremities: No edema - Labs CBC & Chem 7: 04/03/16 06:02 04/03/16 06:02 Labs: Abnormal Lab Results - Last 24 Hours (Table) 04/06/16 04/06/16 04/07/16 Range/Units 17:02 21:16 07:19 PT (9.0-12.0) sec POC Glucose (mg/dL) 195 H 165 H 70 L (75-99) mg/dL 04/07/16 04/07/16 Range/Units 08:50 12:25 PT 27.3 H (9.0-12.0) sec POC Glucose (mg/dL) 150 H (75-99) mg/dL Assessment and Plan Plan: Acute exacerbation of asthma Bronchospasm Pneumonia Dysphagia GERD Molly esophagitis and thrush Congestive heart failure, diastolic, ejection fraction 55-60% Atrial fibrillation with RVR Leukocytosis Hypercarbia Hyperglycemia Pulmonary fibrosis O2 to maintain saturation greater than equal to 88% Diuresis Pulmicort, decrease Pulmicort to 0.5 mg twice a day Albuterol and duo nebs Singulair Steroid taper Mucinex Theophylline GI recommendations: Barium esophagram, ENT evaluation for direct visualization of the thickening of the posterior tongue Incentive spirometry, flutter therapy, chest PT ABX per Dr. Nicole infectious disease Physical and occupational therapy GI and DVT prophylaxis
--- NOTE | 2016-04-07 13:49 | P.PN ---
Subjective Principal diagnosis: Dysphagia 80-year-old female admitted with acute bronchitis pneumonia since March 23. Reevaluate today in regards to dysphagia. Esophagram reported moderate silent aspiration with mild diffuse mucosal irregularity of the mid to lower third thoracic esophagus with possible small areas of ulceration along the lower third esophagus possible Molly. Moderate size sliding hiatal hernia with spontaneous episode of GERD with some circumferential narrowing just above the esophageal vestibule possible mild stricture. She is tolerating a consistent carbohydrate diet without emesis. Reports her breathing to be improved. History of atrial fibrillation with Coumadin monitoring INR today 2.8. Receiving Diflucan, nystatin swish swallow and Protonix. Afebrile Objective - Vital Signs Vital signs: Vital Signs Temp 96.3 F L 04/07/16 07:00 Pulse 82 04/07/16 11:17 Resp 18 04/07/16 07:00 BP 116/71 04/07/16 07:00 Pulse Ox 90 L 04/07/16 07:20 Intake & Output 04/06/16 04/07/16 04/07/16 18:59 06:59 18:59 Other: Voiding Method Toilet Toilet Bedside Commode Diaper Diaper # Voids 2 1 - Exam General appearance: The patient is alert, oriented, in no acute distress. HET: Head is normocephalic and atraumatic. Pupils are equal and reactive. Oropharynx is clear without lesions. Neck: Supple without lymphadenopathy. Trachea midline. Heart: S1 S2. Regular rate and rhythm. Lungs: Diminished in bases bilaterally otherwise clear. Abdomen: Soft, nontender, nondistended with bowel sounds. No peritoneal signs. No palpable organomegaly or masses. Extremities: Normal skin color and turgor. No cyanosis, rash, ulceration, clubbing, or edema. Radial and pedal pulses are 2/4 bilaterally. Neurological: No focal deficits. Strength and sensation are grossly intact. - Labs CBC & Chem 7: 04/03/16 06:02 04/03/16 06:02 Labs: Abnormal Lab Results - Last 24 Hours (Table) 04/06/16 04/06/16 04/07/16 Range/Units 17:02 21:16 07:19 PT (9.0-12.0) sec POC Glucose (mg/dL) 195 H 165 H 70 L (75-99) mg/dL 04/07/16 04/07/16 Range/Units 08:50 12:25 PT 27.3 H (9.0-12.0) sec POC Glucose (mg/dL) 150 H (75-99) mg/dL Assessment and Plan Plan: Impression: 1. Dysphagia and pain while swallowing for last 1 week duration with esophagram indicating possible stricture disease possible Molly, GERD and possible esophageal ulcerations. Presently maintained on antifungal and PPI therapy. 2. Exacerbation of COPD with acute bronchitis and pneumonia on broad spectrum antibiotics. Plan: 1. Dr. Johnson has reviewed results of esophagram and recommend outpatient EGD evaluation. Patient will need to be off Coumadin as well as any NSAID or aspirin products prior to procedure preferably 2-3 days. 2. Continue with antifungal and PPI therapy omeprazole 40 mg daily on discharge. 3. Return to office in 1 week for reevaluation and scheduling of outpatient upper endoscopy.
--- NOTE | 2016-04-07 13:54 | PN ---
DATE OF SERVICE: 04/06/2016 INTERVAL HISTORY: The patient is a 80-year-old female who is seen lying in bed. She is awake and alert. Does feel a bit better today. She is afebrile. Hemodynamically stable, in no acute distress. On physical exam, vital signs, temp is 97.1, heart rate is 92, respiratory rate is 20, blood pressure 120/76, oxygen saturation 92% on 2 liters O2 via nasal cannula. HEENT: Head is normocephalic, atraumatic. NECK: Supple. Trachea is midline. LUNGS: Good air entry, coarse expiratory rhonchi. HEART: S1 and S2 are heard. Not tachycardic. ABDOMEN: Soft. Bowel sounds are heard. EXTREMITIES: With no edema. NEUROLOGIC: The patient is awake, alert, oriented. LABS: PT is 21.8. INR is 2.3. IMAGING: Upper GI barium swallow x-ray shows incidental moderate silent aspiration noted. Aspiration was not seen during the patient's dynamic swallow study, aspiration on the current exam may be due to the current technique utilized including chin lift positioning. Consider speech pathology consultation. Recommend protective maneuvers for the patient as precautionary measure. Mild diffuse mucosal irregularity in the mid to lower third thoracic esophagus with possible small areas of ulceration along the lower third esophagus. Given the patient's history, candidiasis esophagitis is not excluded. Followup drug visualization after successful clinical treatment. Moderate sized sliding hiatal hernia and spontaneous episode of moderate GERD from circumferential narrowing and A ring just above the esophageal vestibule could reflect mild stricture. IMPRESSION: 1. Acute exacerbation of asthma. 2. Bronchospasms. 3. Pneumonia. 4. Dysphagia. 5. Gastroesophageal reflux disease. 6. Molly esophagitis and thrush. 7. Congestive heart failure, diastolic, ejection fraction 55 to 60%. 8. Atrial fibrillation, rate is currently controlled. 9. Leukocytosis. 10. Hypercarbia. 11. Hyperglycemia. 12. Pulmonary fibrosis. PLAN: Continue current medications which have been reviewed. Continue oxygen to maintain saturations greater than or equal to 88%. Continue bronchodilators and aerosolized steroids with prednisone taper. Continue with gastrointestinal recommendations as well as speech therapy. Continue incentive spirometry, flutter therapy and pulmonary hygiene. Continue antibiotics per infectious disease. Continue PT and OT and GI and DVT prophylaxis. Will follow the patient closely with you, making further changes as necessary. I performed a history and physical examination of this patient and discussed the same with the dictator. I agree with the dictator's note. Any additional findings/opinions, etc. will be noted.
--- NOTE | 2016-04-07 15:11 | PN ---
DATE OF SERVICE: 04/07/2016 This 80-year-old white female who was admitted with severe shortness of breath and cough and patient was admitted with a diagnosis of acute tracheobronchitis, acute exacerbation of COPD and also atrial fibrillation with rapid ventricular response and congestive heart failure. The patient was seen by cardiology and auctioneer art in consultation and overall her condition improved but she developed dysphagia, possibly due to oral and esophageal candidiasis. The patient, was getting Diflucan and Mycostatin oral suspension. However, patient had an upper GI, which showed a slightly narrowing in the lower end of the esophagus. Dr. Johnson has recommended upper endoscopy and possible dilatation of the stricture. The diagnosis, prognosis, and therapeutic plans were discussed in detail with the patient and also the family. If Dr. Johnson is going to do the endoscopy as an outpatient, the patient will be discharged home tomorrow.
[2016-04-07 17:15] LABS: Glucose,Whole Blood 165 mg/dL (75-99)
[2016-04-07] MEDS ORDERED: WARFARIN 0.5 MG TAB PO ONE (18:00)
[2016-04-07] MEDS: MONTELUKAST 10 MG TAB PO SCH (20:32)
[2016-04-07 20:56] LABS: Glucose,Whole Blood 204 mg/dL (75-99)
--- NOTE | 2016-04-07 23:36 | PN ---
DATE OF SERVICE: 04/07/2016 REASON FOR FOLLOWUP: Oral thrush and oropharyngeal candidiasis. INTERVAL HISTORY: The patient is afebrile. She has been feeling better. Overall dysphagia symptoms have improved. Denies having any on swallowing or any food stuck in her esophagus. No nausea, vomiting or any diarrhea. On examination, blood pressure is 101/51 with a pulse of 84, temperature 96.1. General description is an elderly female lying in bed in no distress. RESPIRATORY SYSTEM: Unlabored breathing. Some coarse breath sounds at the base. HEART: S1, S2. Regular rate and rhythm. ABDOMEN: Soft. No tenderness. LABS: INR is 2.8. DIAGNOSTIC IMPRESSION AND PLAN: Patient with oral thrush and oropharyngeal candidiasis with likely esophageal candidiasis in view of the abnormality seen on the upper GI. Patient to continue with nystatin swish and swallow along with the Diflucan. Duration of her medication should be at least 21 days with close outpatient followup. Continue supportive care.
[2016-04-08 06:03] VITALS: BP 125/73; RESP 18; TEMP 97
[2016-04-08 07:08] LABS: Glucose,Whole Blood 93 mg/dL (75-99)
[2016-04-08] MEDS: ALBUTEROL NEBULIZED 2.5 MG/3 ML INHALATION SCH ×2 (07:40→11:40)
[2016-04-08] MEDS: BUDESONIDE 0.5 MG/2 ML NEBU INHALATION SCH (07:40)
[2016-04-08] MEDS: INSULIN LISPRO (humaLOG) 300 UNIT/3 ML VIAL SQ SCH ×2 (07:44→13:36)
[2016-04-08] MEDS: ATORVASTATIN 10 MG TAB PO SCH (08:08)
[2016-04-08] MEDS: FUROSEMIDE 80 MG TAB PO SCH (08:08)
[2016-04-08] MEDS: guaiFENesin 600 MG TABLET.ER PO SCH (08:09)
[2016-04-08] MEDS: PANTOPRAZOLE 40 MG TABLET PO SCH (08:09)
[2016-04-08] MEDS: THEOPHYLLINE 24 HOUR 200 MG CAP.ER.24H PO SCH (08:09)
[2016-04-08] MEDS: ATENOLOL 25 MG TAB PO SCH (08:09)
[2016-04-08] MEDS: GABAPENTIN 100 MG CAP PO SCH (08:09)
[2016-04-08] MEDS: EZETIMIBE 10 MG TAB PO SCH (08:09)
[2016-04-08] MEDS: FLUCONAZOLE 100 MG TAB PO SCH (08:09)
[2016-04-08] MEDS: VERAPAMIL 40 MG TAB PO SCH (08:09)
[2016-04-08] MEDS: NYSTATIN 100,000 UNIT/ML SUSP 500,000 UNIT/5 ML CUP PO SCH ×2 (08:10→13:36)
[2016-04-08] MEDS ORDERED: predniSONE 10 MG TAB PO SCH (09:00)
[2016-04-08 11:48] VITALS: PULSE 88
[2016-04-08 12:13] LABS: Glucose,Whole Blood 170 mg/dL (75-99)
--- NOTE | 2016-04-08 18:15 | PN ---
DATE OF SERVICE: 04/08/2016. The patient is a 80-year-old female who is seen sitting up in bed, is awake and alert receiving a respiratory treatment. Feeling better a little every day. Is currently being worked up for some issues in the back of her throat and back of the tongue. The patient is afebrile, hemodynamically stable, in no acute distress. On physical exam, vital signs, temp is 97.0, heart rate is 92, respiratory rate 18, blood pressure is 125/73. Oxygen saturation is 94% on room air. HEENT: Head is normocephalic, atraumatic. NECK: Supple. Trachea is midline. LUNGS: With improved air entry and scattered coarse expiratory rhonchi. HEART: S1 and S2 are heard. Not tachycardic. ABDOMEN: Soft. Bowel sounds are positive. EXTREMITIES: With no edema. NEUROLOGIC: The patient is awake, alert, oriented. LABS: Glucose today is 93. No other labs to review. No new imaging to review. IMPRESSION: 1. Acute exacerbation of asthma. 2. Bronchospasms. 3. Pneumonia. 4. Dysphagia. 5. Gastroesophageal reflux disease. 6. Molly esophagitis and thrush. 7. Congestive heart failure, diastolic ejection fraction is 55 to 60%. 8. Atrial fibrillation with rapid ventricular response, rate is currently controlled. 9. Leukocytosis. 10. Hypercarbia. 11. Hyperglycemia. 12. Pulmonary fibrosis. PLAN: Continue current medications which have been reviewed with oxygen to maintain saturations greater than or equal to 88%. Continue bronchodilators and aerosolized steroids with leukotriene inhibitors. Continue p.o. prednisone taper. Continue to increase activity as tolerated. Continue antibiotics per infectious disease. Continue GI and DVT prophylaxis. Continue incentive spirometry. Flutter therapy, chest PT. Follow GI recommendations and ENT recommendations for further evaluation of the difficulties the patient is having swallowing. I performed a history and physical examination of this patient and discussed the same with the dictator. I agree with the dictator's note. Any additional findings/opinions, etc. will be noted.
--- NOTE | 2016-04-09 10:12 | PN ---
DATE OF SERVICE: 04/08/2016 Reason for follow-up is oral thrush and oropharyngeal candidiasis. INTERVAL HISTORY: The patient was seen on rounds this afternoon. The patient has been afebrile. Overall, dysphagia and difficulty swallowing has improved. No nausea or vomiting. Denies having any chest pain. Occasional cough. No diarrhea. On examination, blood pressure is 125/73 with a pulse of 90, temperature 97.9. She is 94% on room air. General description is an elderly female up in the bed in no distress. HEENT EXAMINATION: Oral thrush. LUNGS: Unlabored breathing. Some coarse breath sounds at the base. HEART: S1, S2 with regular rate and rhythm. ABDOMEN: Soft, no tenderness. LABS: No new labs have been obtained today. DIAGNOSTIC IMPRESSION AND PLAN: Patient with extensive oral thrush with likely oropharyngeal Molly and esophageal candidiasis. Patient seems to be responding to the Nystatin swish and swallow and Diflucan. She will be continued for at least 2 weeks with close outpatient follow-up.
[2016-04-10 15:23] LABS: Mis test requested (Blood) Hypersen.Pneum.Eval
--- NOTE | 2016-06-05 22:04 | DS ---
DATE OF ADMISSION: 03/22/2016 DATE OF DISCHARGE: 04/08/2016 DISCHARGE DIAGNOSES: 1. Atrial fibrillation with a rapid ventricular response. 2. Chronic obstructive pulmonary disease with acute exacerbation. 3. Acute on chronic congestive heart failure, possibly diastolic. 4. Hyperlipidemia. 5. Degenerative arthritis, multiple joints. 6. Low back pain with possible lumbar radiculopathy. 7. Past history of splenic infarct. 8. Oral and esophageal candidiasis. 9. Esophageal stricture. This is a 80-year-old white female who is known to have chronic atrial fibrillation, chronic obstructive pulmonary disease and chronic congestive heart failure. Patient was having increasing shortness of breath and it was progressively getting worse. The patient was brought to the emergency room. She was even short of breath with minimal exertion. In the emergency room she was found to have atrial fibrillation with rapid ventricular response. Her CBC showed a WBC count of 10.8, hemoglobin 17.4, and platelet count 239,000; sodium 139, potassium 4.4, creatinine 1.1, BUN 21; and glucose 108. Cardiac enzymes were within normal limits but her BNP was 2530 and her EKG showed atrial fibrillation with rapid ventricular response. Patient was admitted to the hospital for further evaluation and treatment. For details of the physical examination at the time of admission, please refer to the history and physical. HOSPITAL COURSE: Patient was started on IV fluids, IV antibiotics and IV Solu-Medrol, updraft treatments. Patient was seen by [facility] in consultation. She was also seen by roto rooter operator in consultation. Her overall condition started improving with the treatments. She apparently developed oral and esophageal candidiasis and patient was seen by Dr. Nicole in consultation and she was placed on Diflucan and nystatin oral suspension. She complained of dysphagia and she had an upper GI which showed narrowing in the distal portion of the esophagus. Dr. Johnson recommended endoscopy and Dr. Johnson will arrange endoscopy as an outpatient. As her condition improved, she was discharged home on 04/18/2016. She will continue on: 1. Diflucan 200 mg p.o. daily for 14 days. 2. Nystatin oral suspension 5 mL q.i.d. Swish and Swallow. 3. Coumadin 1 mg p.o. daily. 4. Atenolol 25 mg p.o. daily. 5. Vytorin 10/20 one daily. 6. Lasix 40 mg b.i.d. 7. Neurontin 100 mg b.i.d. 8. Updraft treatments. She will be seen in my office for followup in a week's time. She will also be followed by Cardiology and roto rooter operator.
== END 2016-04-08 14:43 | disposition home health service (06) | DRG 291 ==
LOC: EC 17:53 → 6SEL 22:35 → 4MS4W 04-05 19:43
PROVIDERS: ADMIT Internal Medicine; ATTEND Internal Medicine
DX: I13.0 Hypertensive heart and chronic kidney disease with heart failure and stage 1 through stage 4 chronic kidney disease, or unspecified chronic kidney disease (principal); I50.33 Acute on chronic diastolic (congestive) heart failure; J96.01 Acute respiratory failure with hypoxia; J18.9 Pneumonia, unspecified organism; B37.0 Candidal stomatitis; B37.81 Candidal esophagitis; J44.0 Chronic obstructive pulmonary disease with (acute) lower respiratory infection; J47.0 Bronchiectasis with acute lower respiratory infection; I27.2 Other secondary pulmonary hypertension; I48.1 Persistent atrial fibrillation; I48.92 Unspecified atrial flutter; J44.1 Chronic obstructive pulmonary disease with (acute) exacerbation; J45.901 Unspecified asthma with (acute) exacerbation; J98.11 Atelectasis; N18.3 Chronic kidney disease, stage 3 (moderate); I08.1 Rheumatic disorders of both mitral and tricuspid valves; E78.5 Hyperlipidemia, unspecified; I48.2 Chronic atrial fibrillation; J20.9 Acute bronchitis, unspecified; J84.112 Idiopathic pulmonary fibrosis; K21.9 Gastro-esophageal reflux disease without esophagitis; K44.9 Diaphragmatic hernia without obstruction or gangrene; K57.90 Diverticulosis of intestine, part unspecified, without perforation or abscess without bleeding; M19.90 Unspecified osteoarthritis, unspecified site; R13.12 Dysphagia, oropharyngeal phase; R32 Unspecified urinary incontinence; Z96.1 Presence of intraocular lens; T38.0X5A Adverse effect of glucocorticoids and synthetic analogues, initial encounter; Z79.01 Long term (current) use of anticoagulants; Z82.49 Family history of ischemic heart disease and other diseases of the circulatory system; Z86.718 Personal history of other venous thrombosis and embolism; Z87.01 Personal history of pneumonia (recurrent); Z87.891 Personal history of nicotine dependence; Z79.899 Other long term (current) drug therapy
CPT/HCPCS: 36415; 71010; 71250; 74230; 74246; 76770; 80048; 80053; 81001; 82550; 82553; 82565; 82728; 83036; 83540; 83550; 83735; 83880; 84439; 84443; 84466; 84484; 84520; 85025; 85379; 85610; 85730; 86001; 86606; 86609; 87040; 87070; 87205; 93005; 93306; 94640; 94667; 94668; 94760; 96365; 96366; 96367; 96375; 96376; 99285

== ENCOUNTER 2016-04-15 08:47 | Emergency (ER) | payer MEDICARE, BC ==
[2016-04-15 09:19] VITALS: TEMP 97.8
--- NOTE | 2016-04-15 09:49 | ED ---
General Adult HPI - General Chief complaint: Recheck/Abnormal Lab/Rx Stated complaint: ABNORMAL LABS Time Seen by Provider: 04/15/16 09:39 Source: patient, RN notes reviewed Mode of arrival: wheelchair Limitations: no limitations - History of Present Illness Initial comments: Patient is 80-year-old female who presents emergency room today with a chief complaint of an elevated potassium. She states she had a home nurse come out to the house yesterday draw blood. States she was called this morning and advised that potassium 6.7. She states she's had high potassium in the past and advised to stay away from certain foods. She denies any other complaints. Patient denies any recent fever, chills, shortness of breath, chest pain, back pain, abdominal pain, nausea or vomiting, numbness or tingling, dysuria or hematuria, constipation or diarrhea, headaches or visual changes, or any other complaints. - Related Data Home Medications Medication Instructions Recorded Confirmed Atenolol [Tenormin] 25 mg PO DAILY 02/13/14 04/15/16 Ezetimibe/Simvastatin [Vytorin 1 tab PO DAILY 02/13/14 04/15/16 10-20 mg Tablet] Gabapentin [Neurontin] 100 mg PO BID 11/14/15 04/15/16 Furosemide [Lasix] 40 mg PO BID 03/22/16 04/15/16 Previous Rx's Medication Instructions Recorded Nystatin 100,000 Unit/ml Susp 5 ml PO QID 14 Days 04/08/16 [Mycostatin Oral Susp] Warfarin [Coumadin] 1 mg PO DAILY@1800 14 Days 04/08/16 Allergies Allergy/AdvReac Type Severity Reaction Status Date / Time No Known Allergies Allergy Verified 04/15/16 09:30 Review of Systems ROS Statement: Those systems with pertinent positive or pertinent negative responses have been documented in the HPI. ROS Other: All systems not noted in ROS Statement are negative. 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, URINARY INCONTINENCE, ABD HERNIA,DIVERTICULITIS History of Any Multi-Drug Resistant Organisms: None Reported Past Surgical History: Adenoidectomy, Appendectomy, Breast Surgery, Heart Catheterization, Hysterectomy, Tonsillectomy Additional Past Surgical History / Comment(s): CATARACTS-LENS IMPLANTS, CYSTOCELE/RECTOCELE AND HOLE IN BOWEL REPAIRED, LT HAND THUMB SX, BREAST BIOPSY- NEG Past Anesthesia/Blood Transfusion Reactions: No Reported Reaction Past Psychological History: Anxiety Additional Psychological History / Comment(s): related to procedure Smoking Status: Former smoker Past Alcohol Use History: None Reported Additional Past Alcohol Use History / Comment(s): 1/2 PPD Past Drug Use History: None Reported - Past Family History Father Family Medical History: Cancer, Myocardial Infarction ([place]) Additional Family Medical History / Comment(s): ANEURYSMS, BONE CA. AGE 75 FROM ANEURYSM IN HEAD Mother Family Medical History: Congestive Heart Failure (CHF) Additional Family Medical History / Comment(s): AT AGE 84 General Exam - General Exam Comments Initial Comments: General: The patient is awake and alert, in no distress, and does not appear acutely ill. Eye: Pupils are equal, round and reactive to light, extra-ocular movements are intact. No nystagmus. There is normal conjunctiva bilaterally. No signs of icterus. Ears, nose, mouth and throat: There are moist mucous membranes and no oral lesions. Neck: The neck is supple, there is no tenderness or JVD. Cardiovascular: There is a regular rate and rhythm. No murmur, rub or gallop is appreciated. Respiratory: Lungs are clear to auscultation, respirations are non-labored, breath sounds are equal. No wheezes, stridor, rales, or rhonchi. Gastrointestinal: Soft, non-distended, non-tender abdomen without masses or organomegaly noted. There is no rebound or guarding present. No CVA tenderness. Bowel sounds are unremarkable. Musculoskeletal: Normal ROM, no tenderness. Strength 5/5. Sensation intact. Pulses equal bilaterally 2+. Neurological: A&O x 3. CN II-XII intact, There are no obvious motor or sensory deficits. Coordination appears grossly intact. Speech is normal. Skin: Skin is warm and dry and no rashes or lesions are noted. Psychiatric: Cooperative, appropriate mood & affect, normal judgment. Limitations: no limitations Course Vital Signs 04/15/16 04/15/16 09:15 10:18 Temperature 97.8 F Pulse Rate 59 L 76 Respiratory 20 15 Rate Blood Pressure 129/56 121/74 O2 Sat by Pulse 97 98 Oximetry Medical Decision Making - Medical Decision Making Case discussed in detail with attending physician Dr. Sinclair. Patient reexamined at this time shows no signs of distress. Patient's EKG reviewed does show atrial fibrillation. Patient is on Coumadin for this. Patient's lab work from yesterday was reviewed shows a potassium 6.7. Repeat potassium today is 5.3. Patient asymptomatic. Patient does take Lasix. She states states it's worse to 40 mg twice a day. Patient was continue this medication and follow-up the family doctor have repeat potassium obtained over the next 2-5 days. Advised return if any symptoms increase worsen or for any other concerns. Patient states understanding and is in agreement. - Lab Data Result diagrams: 04/15/16 10:21 04/15/16 10:21 Lab Results 04/15/16 04/15/16 Range/Units 10:21 10:21 WBC 8.6 (3.8-10.6) k/uL RBC 5.18 (3.80-5.40) m/uL Hgb 15.0 (11.4-16.0) gm/dL Hct 47.9 H (34.0-46.0) % MCV 92.5 (80.0-100.0) fL MCH 28.9 (25.0-35.0) pg MCHC 31.3 (31.0-37.0) g/dL RDW 14.6 (11.5-15.5) % Plt Count 243 (150-450) k/uL Neutrophils % 65 % Lymphocytes % 23 % Monocytes % 8 % Eosinophils % 2 % Basophils % 1 % Neutrophils # 5.6 (1.3-7.7) k/uL Lymphocytes # 2.0 (1.0-4.8) k/uL Monocytes # 0.7 (0-1.0) k/uL Eosinophils # 0.2 (0-0.7) k/uL Basophils # 0.1 (0-0.2) k/uL Sodium 143 (137-145) mmol/L Potassium 5.3 H (3.5-5.1) mmol/L Chloride 105 (98-107) mmol/L Carbon Dioxide 28 (22-30) mmol/L Anion Gap 10 mmol/L BUN 30 H (7-17) mg/dL Creatinine 1.26 H (0.52-1.04) mg/dL Est GFR (MDRD) Af Amer 50 (>60 ml/min/1.73 sqM) Est GFR (MDRD) Non-Af 41 (>60 ml/min/1.73 sqM) Glucose 93 (74-99) mg/dL Calcium 9.0 (8.4-10.2) mg/dL Total Bilirubin 0.9 (0.2-1.3) mg/dL AST 44 H (14-36) U/L ALT 58 H (9-52) U/L Alkaline Phosphatase 100 (38-126) U/L Total Protein 6.5 (6.3-8.2) g/dL Albumin 3.2 L (3.5-5.0) g/dL Disposition Clinical Impression: Serum potassium elevated Disposition: HOME SELF-CARE Condition: Good Instructions: Hyperkalemia (ED) Additional Instructions: Please follow-up the family doctor have repeat potassium drawn in the next 2-5 days. Please return here the emergency room if any symptoms increase or worsen or for new concerns. Time of Disposition: 11:13
[2016-04-15 10:38] LABS: Basophils # (A) 0.1 k/uL (0-0.2); Basophils % (A) 1 %; CH 29.8; CHCM 32.4; Eosinophils # (A) 0.2 k/uL (0-0.7); Eosinophils % (A) 2 %; HCT 47.9 % (34.0-46.0); Luc # (Auto) 0.17; Luc % (Auto) 2; Lymphocytes % (A) 23 %; MCH 28.9 pg (25.0-35.0); MCHC 31.3 g/dL (31.0-37.0); MCV 92.5 fL (80.0-100.0); Mean Platelet Volume 7.4; Monocytes # (A) 0.7 k/uL (0-1.0); Monocytes % (A) 8 %; Neutrophils # (A) 5.6 k/uL (1.3-7.7); Neutrophils % (A) 65 %; RBC 5.18 m/uL (3.80-5.40); RDW 14.6 % (11.5-15.5); WBC 8.6 k/uL (3.8-10.6); WBC (Perox) 8.61
[2016-04-15 10:52] LABS: Potassium 5.3 mmol/L (3.5-5.1); Total Bilirubin 0.9 mg/dL (0.2-1.3); Total Protein 6.5 g/dL (6.3-8.2)
[2016-04-15 11:37] VITALS: BP 132/89; PULSE 79; RESP 18
== END 2016-04-15 11:36 | disposition home or self-care (01) ==
LOC: EC 08:47
DX: E87.5 Hyperkalemia (principal); I48.91 Unspecified atrial fibrillation; Z86.73 Personal history of transient ischemic attack (TIA), and cerebral infarction without residual deficits; E78.5 Hyperlipidemia, unspecified; I10 Essential (primary) hypertension; Z98.61 Coronary angioplasty status; Z87.891 Personal history of nicotine dependence; Z79.01 Long term (current) use of anticoagulants; Z79.899 Other long term (current) drug therapy
CPT/HCPCS: 36415; 80053; 85025; 93005; 99283

== ENCOUNTER 2016-08-15 12:42 | Emergency (ER) | payer MEDICARE, BC ==
--- NOTE | 2016-08-15 13:51 | ED ---
Upper Extremity HPI - General Chief Complaint: Extremity Problem,Nontraumatic Stated Complaint: Right Shoulder/Arm Pain Time Seen by Provider: 08/15/16 13:09 Source: patient Mode of arrival: ambulatory Limitations: no limitations - History of Present Illness Initial Comments: Patient is an 81-year-old female presenting to the emergency department with complaints of right shoulder pain that started yesterday morning when patient woke up. Patient denies injury or trauma to right shoulder. Patient denies previous surgery to right shoulder. Patient states that her right shoulder pain is exacerbated with lifting her right arm and she is unable to lift her right arm above her shoulder. She denies numbness or tingling. Patient denies recent illness, chills, nausea, vomiting, chest pain, shortness breath, abdominal pain, Patient states she took some Tylenol approximately 2 hours prior to arrival with minimal relief. Complaint: Injury to:: right, shoulder Onset/Timin -: days(s) Other Injuries: none Handedness: right Place: home Severity scale (1-10): 6 Improves With: immobilization Worsens With: movement of extremity Context: other (Patient states she woke up with right shoulder pain which progressively became worse) Associated Symptoms: denies other symptoms - Related Data Home Medications Medication Instructions Recorded Confirmed Atenolol [Tenormin] 25 mg PO DAILY 02/13/14 08/15/16 Ezetimibe/Simvastatin [Vytorin 1 tab PO DAILY 02/13/14 08/15/16 10-20 mg Tablet] Gabapentin [Neurontin] 100 mg PO BID 11/14/15 08/15/16 Furosemide [Lasix] 40 mg PO BID 03/22/16 08/15/16 Warfarin Sodium [Coumadin] 1 mg PO Q48H 08/15/16 08/15/16 Warfarin Sodium [Coumadin] 2 mg PO Q48H 08/15/16 08/15/16 amLODIPine [Norvasc] 5 mg PO DAILY 08/15/16 08/15/16 Allergies Allergy/AdvReac Type Severity Reaction Status Date / Time No Known Allergies Allergy Verified 08/15/16 13:31 Review of Systems ROS Statement: Those systems with pertinent positive or pertinent negative responses have been documented in the HPI. ROS Other: All systems not noted in ROS Statement are negative. 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, URINARY INCONTINENCE, ABD HERNIA,DIVERTICULITIS History of Any Multi-Drug Resistant Organisms: None Reported Past Surgical History: Adenoidectomy, Appendectomy, Breast Surgery, Heart Catheterization, Hysterectomy, Tonsillectomy Additional Past Surgical History / Comment(s): CATARACTS-LENS IMPLANTS, CYSTOCELE/RECTOCELE AND HOLE IN BOWEL REPAIRED, LT HAND THUMB SX, BREAST BIOPSY- NEG Past Anesthesia/Blood Transfusion Reactions: No Reported Reaction Past Psychological History: Anxiety Additional Psychological History / Comment(s): related to procedure Smoking Status: Former smoker Past Alcohol Use History: None Reported Additional Past Alcohol Use History / Comment(s): 1/2 PPD Past Drug Use History: None Reported - Past Family History Father Family Medical History: Cancer, Myocardial Infarction ([place]) Additional Family Medical History / Comment(s): ANEURYSMS, BONE CA. AGE 75 FROM ANEURYSM IN HEAD Mother Family Medical History: Congestive Heart Failure (CHF) Additional Family Medical History / Comment(s): AT AGE 84 General Exam Limitations: no limitations Course Vital Signs 08/15/16 13:03 Temperature 98.1 F Pulse Rate 83 Respiratory 18 Rate Blood Pressure 100/62 O2 Sat by Pulse 98 Oximetry Medical Decision Making - Medical Decision Making Right shoulder pain suspect rotator cuff tendinitis. Patient instructed to rest and treat with ice and anti-inflammatory. Patient is given a sling but instructed to only use it when walking and instructed on shoulder exercises. Patient is aware of frozen shoulder complications with overuse of sling.. Patient is instructed to follow-up with orthopedic service on Wednesday. Return parameters and discharge instructions reviewed. Patient agrees with treatment plan. - Radiology Data Radiology results: report reviewed X-ray right shoulder: No fracture or dislocation. Glenohumeral joint is intact. AC joint is intact. Disposition Clinical Impression: Right shoulder pain Disposition: HOME SELF-CARE Condition: Good Instructions: Shoulder Pain (ED), Exercises for Shoulder Flexion and Extension (ED) Additional Instructions: Use only arm sling when walking. Continue ice, Tylenol for pain as needed. Avoid sleeping on either side. Restrict overhead reaching. Once pain has improved again gentle range of motion movement of the shoulder. Follow-up with orthopedic surgeon as directed. Referrals: Kwame Mohan MD [Primary Care Provider] - 1-2 days Roni Mendez DO [Doctor of Osteopathic Medicine] - 1-2 days Time of Disposition: 14:55
--- NOTE | 2016-08-15 14:19 | XR ---
EXAMINATION TYPE: XR shoulder complete RT DATE OF EXAM: 08/15/2016 1:54 PM COMPARISON: NONE HISTORY: Right shoulder pain TECHNIQUE: 3 views FINDINGS: I see no fracture nor dislocation. Glenohumeral joint is intact. AC joint is intact. IMPRESSION: No acute abnormality of the right shoulder.
[2016-08-15 15:22] VITALS: BP 116/68; PULSE 84; RESP 20; TEMP 98.2
== END 2016-08-15 15:21 | disposition home or self-care (01) ==
LOC: EC 12:42
DX: M25.511 Pain in right shoulder (principal); I48.91 Unspecified atrial fibrillation; E78.5 Hyperlipidemia, unspecified; I10 Essential (primary) hypertension; Z87.891 Personal history of nicotine dependence; Z79.01 Long term (current) use of anticoagulants; Z79.899 Other long term (current) drug therapy
CPT/HCPCS: 99283

== ENCOUNTER 2016-09-20 20:58 | Emergency (ER) | payer MEDICARE, BC ==
[2016-09-20] MEDS ORDERED: HYDROmorphone 1 MG/ML 1 ML SYRINGE IVP STA (22:43)
[2016-09-20] MEDS ORDERED: SODIUM CHLORIDE 0.9% 500 ML IV ONE (22:43)
--- NOTE | 2016-09-20 22:47 | ED ---
Extremity Problem HPI - General Chief complaint: Extremity Problem,Nontraumatic Stated complaint: Feet swelling. Cardiac pt Time Seen by Provider: 09/20/16 22:11 Source: patient, RN notes reviewed Mode of arrival: wheelchair Limitations: no limitations - History of Present Illness Initial comments: Patient is a 81-year-old female presents to the emergency room for evaluation of right foot pain. Patient states Wednesday night she noticed pain on the bottom portion of her great toe. Patient states Wednesday pain began to worsen throughout her foot. Patient states today she's been unable to walk and noticed redness over her great toe top of her foot. Patient states having 9 out of 10 constant pain. Patient states been taking ibuprofen with no relief of symptoms. Patient does state she has a history of gout. Patient states this does feel similar to gout. Patient states she's not sure if she accidentally ran her toe into anything. Patient denies injuring her foot. Patient denies fevers or chills. Patient states the pain is beginning to radiate up her ankle. Patient denies calf pain. Patient denies chest pain or shortness of breath. Patient denies numbness or tingling in her toes. - Related Data Home Medications Medication Instructions Recorded Confirmed Atenolol [Tenormin] 25 mg PO DAILY 02/13/14 09/20/16 Ezetimibe/Simvastatin [Vytorin 1 tab PO DAILY 02/13/14 09/20/16 10-20 mg Tablet] Gabapentin [Neurontin] 100 mg PO BID 11/14/15 09/20/16 Furosemide [Lasix] 40 mg PO BID 03/22/16 09/20/16 Warfarin Sodium [Coumadin] 2 mg PO Q48H 08/15/16 09/20/16 amLODIPine [Norvasc] 5 mg PO DAILY 08/15/16 09/20/16 Allopurinol [Zyloprim] 100 mg PO DAILY 09/20/16 09/20/16 Warfarin [Coumadin] 1 mg PO Q48H 09/20/16 09/20/16 Previous Rx's Medication Instructions Recorded Acetaminophen with Codeine 1 tab PO Q4H PRN #20 tab 09/21/16 [Tylenol w/codeine #3] Colchicine 0.6 mg PO DAILY #12 capsule 09/21/16 Ondansetron Odt [Zofran Odt] 4 mg PO Q8HR PRN #12 tab 09/21/16 Allergies Allergy/AdvReac Type Severity Reaction Status Date / Time No Known Allergies Allergy Verified 09/20/16 22:38 Review of Systems ROS Statement: Those systems with pertinent positive or pertinent negative responses have been documented in the HPI. ROS Other: All systems not noted in ROS Statement are negative. 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, URINARY INCONTINENCE, ABD HERNIA,DIVERTICULITIS History of Any Multi-Drug Resistant Organisms: None Reported Past Surgical History: Adenoidectomy, Appendectomy, Breast Surgery, Heart Catheterization, Hysterectomy, Tonsillectomy Additional Past Surgical History / Comment(s): CATARACTS-LENS IMPLANTS, CYSTOCELE/RECTOCELE AND HOLE IN BOWEL REPAIRED, LT HAND THUMB SX, BREAST BIOPSY- NEG Past Anesthesia/Blood Transfusion Reactions: No Reported Reaction Past Psychological History: Anxiety Smoking Status: Former smoker Past Alcohol Use History: None Reported Past Drug Use History: None Reported - Past Family History Father Family Medical History: Cancer, Myocardial Infarction ([place]) Additional Family Medical History / Comment(s): ANEURYSMS, BONE CA. AGE 75 FROM ANEURYSM IN HEAD Mother Family Medical History: Congestive Heart Failure (CHF) Additional Family Medical History / Comment(s): AT AGE 84 General Exam - General Exam Comments Initial Comments: Sitting in exam room, no acute distress. Limitations: no limitations General appearance: alert, in no apparent distress Head exam: Present: atraumatic, normocephalic, normal inspection Eye exam: Present: normal appearance ENT exam: Present: normal exam Neck exam: Present: normal inspection Respiratory exam: Present: normal lung sounds bilaterally. Absent: respiratory distress Cardiovascular Exam: Present: regular rate, normal rhythm, normal heart sounds Right Foot/Toe exam: Present: tenderness (Palpating over the dorsal foot), swelling, erythema (Erythema and tenderness on palpating over the great MTP joint). Absent: normal inspection Neurovascular tendon exam: Present: no vascular compromise. Absent: pulse deficit (2+ dorsal pedal and posterior tibial), abnormal cap refill (Capillary refill less than 2 seconds) Back exam: Present: normal inspection Neurological exam: Present: alert, oriented X3, CN II-XII intact, normal gait Psychiatric exam: Present: normal affect, normal mood Skin exam: Present: warm, dry, intact, normal color. Absent: rash Course Vital Signs 09/20/16 09/21/16 21:25 01:38 Temperature 98.4 F 97.2 F L Pulse Rate 63 85 Respiratory 18 16 Rate Blood Pressure 121/58 90/75 O2 Sat by Pulse 96 96 Oximetry Medical Decision Making - Medical Decision Making Patient is a 81-year-old female presents to the emergency room for evaluation of right foot pain, swelling and erythema. Symptoms consistent with gout. Patient's uric acid is elevated along with WBC. X-ray shows no acute findings. Patient will be treated for gout. Patient placed on colchicine and Tylenol 3. Patient given a dose of solu-medrol before discharge. Advised patient to follow up with primary care provider in 24 hours for reevaluation. Patient states she understands everything that was discussed with her. Return parameters discussed. Case discussed with Dr. Beckman. - Lab Data Result diagrams: 09/20/16 23:20 09/20/16 23:20 Lab Results 09/20/16 09/20/16 Range/Units 23:20 23:20 WBC 12.9 H (3.8-10.6) k/uL RBC 5.58 H (3.80-5.40) m/uL Hgb 16.4 H (11.4-16.0) gm/dL Hct 48.6 H (34.0-46.0) % MCV 87.1 (80.0-100.0) fL MCH 29.3 (25.0-35.0) pg MCHC 33.7 (31.0-37.0) g/dL RDW 14.4 (11.5-15.5) % Plt Count 291 (150-450) k/uL Neutrophils % 67 % Lymphocytes % 22 % Monocytes % 7 % Eosinophils % 2 % Basophils % 1 % Neutrophils # 8.6 H (1.3-7.7) k/uL Lymphocytes # 2.8 (1.0-4.8) k/uL Monocytes # 0.9 (0-1.0) k/uL Eosinophils # 0.2 (0-0.7) k/uL Basophils # 0.1 (0-0.2) k/uL Sodium 141 (137-145) mmol/L Potassium 3.9 (3.5-5.1) mmol/L Chloride 104 (98-107) mmol/L Carbon Dioxide 28 (22-30) mmol/L Anion Gap 9 mmol/L BUN 26 H (7-17) mg/dL Creatinine 1.20 H (0.52-1.04) mg/dL Est GFR (MDRD) Af Amer 52 (>60 ml/min/1.73 sqM) Est GFR (MDRD) Non-Af 43 (>60 ml/min/1.73 sqM) Glucose 68 L (74-99) mg/dL Uric Acid 9.3 H (3.7-7.4) mg/dL Calcium 9.5 (8.4-10.2) mg/dL Total Bilirubin 0.4 (0.2-1.3) mg/dL AST 21 (14-36) U/L ALT 29 (9-52) U/L Alkaline Phosphatase 120 (38-126) U/L Total Protein 6.6 (6.3-8.2) g/dL Albumin 3.8 (3.5-5.0) g/dL - Radiology Data Radiology results: report reviewed, image reviewed Disposition Clinical Impression: Gout Disposition: HOME SELF-CARE Condition: Good Instructions: Gout (ED) Additional Instructions: Take medications as directed. Please follow-up with primary care provider in 24 -48 hours for reevaluation. If any new symptom arises or symptoms worsen, return to ER as soon as possible. Prescriptions: Ondansetron Odt [Zofran Odt] 4 mg PO Q8HR PRN #12 tab PRN Reason: Nausea Acetaminophen with Codeine [Tylenol w/codeine #3] 1 tab PO Q4H PRN #20 tab PRN Reason: Pain Colchicine 0.6 mg PO DAILY #12 capsule Referrals: Kwame Mohan MD [Primary Care Provider] - 1-2 days Time of Disposition: 00:35
[2016-09-20 23:38] LABS: Basophils # (A) 0.1 k/uL (0-0.2); Basophils % (A) 1 %; CH 29.1; CHCM 33.6; Eosinophils # (A) 0.2 k/uL (0-0.7); Eosinophils % (A) 2 %; HCT 48.6 % (34.0-46.0); HDW 2.66; HGB 16.4 gm/dL (11.4-16.0); Luc # (Auto) 0.27; Luc % (Auto) 2; Lymphocytes # (A) 2.8 k/uL (1.0-4.8); Lymphocytes % (A) 22 %; MCH 29.3 pg (25.0-35.0); MCHC 33.7 g/dL (31.0-37.0); MCV 87.1 fL (80.0-100.0); Mean Platelet Volume 6.7; Monocytes # (A) 0.9 k/uL (0-1.0); Monocytes % (A) 7 %; Neutrophils # (A) 8.6 k/uL (1.3-7.7); Neutrophils % (A) 67 %; RBC 5.58 m/uL (3.80-5.40); RDW 14.4 % (11.5-15.5); WBC 12.9 k/uL (3.8-10.6); WBC (Perox) 12.41
[2016-09-20 23:58] LABS: Calcium 9.5 mg/dL (8.4-10.2); Potassium 3.9 mmol/L (3.5-5.1); Total Bilirubin 0.4 mg/dL (0.2-1.3); Total Protein 6.6 g/dL (6.3-8.2); Uric Acid 9.3 mg/dL (3.7-7.4)
--- NOTE | 2016-09-21 00:02 | XR ---
EXAM: XR Right Foot Complete, 3 or More Views CLINICAL HISTORY: Great toe redness and pain. TECHNIQUE: Frontal, lateral and oblique views of the right foot. COMPARISON: No relevant prior studies available. FINDINGS: Bones/joints: No fracture or dislocation. There are questionable erosive changes at the distal tuft of the great toe on the frontal view. Decreased osseous mineralization. Soft tissues: Soft tissue edema at the great toe. IMPRESSION: There are questionable erosive changes at the distal tuft of the great toe on the frontal view. However, these are not confirmed on the oblique view. Given presence of soft tissue edema, early infection is difficult to exclude. Consider short-term follow-up with additional views of the great toe or MRI.
[2016-09-21] MEDS ORDERED: ONDANSETRON 4 MG/2 ML VIAL IVP STA (00:21)
[2016-09-21] MEDS ORDERED: methylPREDNISolone SOD SUCCI 125 MG/2 ML VIAL IV STA (00:35)
[2016-09-21] MEDS ORDERED: METOCLOPRAMIDE 5 MG/ML 2 ML VIAL IVP STA (00:44)
[2016-09-21 01:39] VITALS: BP 90/75; PULSE 85; RESP 16; TEMP 97.2
== END 2016-09-21 01:39 | disposition home or self-care (01) ==
LOC: EC 20:58
DX: M10.9 Gout, unspecified (principal); I48.91 Unspecified atrial fibrillation; E78.5 Hyperlipidemia, unspecified; Z86.73 Personal history of transient ischemic attack (TIA), and cerebral infarction without residual deficits; Z79.01 Long term (current) use of anticoagulants; Z79.899 Other long term (current) drug therapy; Z87.891 Personal history of nicotine dependence
CPT/HCPCS: 99283; 96374; 96375 ×3; 96361; 36415; 80053; 84550; 85025; 73630; J2765; J2930; J2405; J1170

== ENCOUNTER → 2017-04-15 | Outpatient (CLI) | payer MEDICARE, BC ==
[2017-04-15 08:29] LABS: Anisocytosis Slight; HCT 52.8 % (34.0-46.0); HGB 16.6 gm/dL (11.4-16.0); Hypochromasia Slight; MCHC 31.4 g/dL (31.0-37.0); MCV 95.4 fL (80.0-100.0); Mean Platelet Volume 6.8; Platelet Count 394 k/uL (150-450); RBC 5.53 m/uL (3.80-5.40); WBC 10.7 k/uL (3.8-10.6)
--- NOTE | 2017-04-15 08:33 | XR ---
EXAMINATION TYPE: XR chest 2V DATE OF EXAM: 04/15/2017 COMPARISON: 04/03/2016 HISTORY: Shortness of breath TECHNIQUE: Frontal and lateral views of the chest are obtained. FINDINGS: Scattered senescent parenchymal changes noted. Hyperinflation compatible with COPD. Increased density right medial lung base may reflect developing pneumonia. Correlate clinically and p rogress studies would be of value. Heart size is stable. Mediastinal structures are stable and grossly unremarkable. No evidence for hilar prominence. Degenerative changes dorsal spine. IMPRESSION: 1. Increased density right medial lung base may reflect developing pneumonia. Correlate clinically an d progress studies would be of value.
[2017-04-15 09:14] LABS: Albumin 3.9 g/dL (3.5-5.0); Calcium 10.3 mg/dL (8.4-10.2); Potassium 5.1 mmol/L (3.5-5.1); Total Bilirubin 0.7 mg/dL (0.2-1.3); Total Protein 6.7 g/dL (6.3-8.2); Uric Acid 5.4 mg/dL (3.7-7.4)
[2017-04-15 09:24] LABS: T4, Free (Free Thyroxine) 1.14 ng/dL (0.78-2.19)
== END | disposition home or self-care (01) ==
LOC: LABWHC1 07:34
PROVIDERS: ATTEND Internal Medicine
DX: Z00.01 Encounter for general adult medical examination with abnormal findings (principal); J44.9 Chronic obstructive pulmonary disease, unspecified; I50.9 Heart failure, unspecified; E78.2 Mixed hyperlipidemia; I11.9 Hypertensive heart disease without heart failure; M10.9 Gout, unspecified
CPT/HCPCS: 36415; 71046; 80053; 80061; 84439; 84443; 84550; 85027

== ENCOUNTER → 2017-11-17 | Outpatient (CLI) | payer MEDICARE, BC ==
--- NOTE | 2017-11-17 10:55 | US ---
EXAMINATION TYPE: US abdomen complete DATE OF EXAM: 11/17/2017 COMPARISON: CT abdomen pelvis January 06, 2013 CLINICAL HISTORY: R10.12 ABD PAIN,R10.32 LLQ PAIN. Pt states generalized ABD pain EXAM MEASUREMENTS: Liver Length: 13.8 cm Gallbladder Wall: 0.2 cm CBD: 1.0 cm Spleen: 8.0 cm Right Kidney: 9.6 x 4.1 x 4.1 cm Left Kidney: 10.0 x 4.7 x 4.2 cm Pancreas: wnl, tail obscured by overlying bowel gas, under 3mm duct visualized Liver: wnl Gallbladder: wnl Evidence for sonographic Acevedo's sign: No CBD: Minimally dilated for pt's age Spleen: Calcification at hilum= 0.9 cm Right Kidney: wnl, lower pole partially gassed out with cyst at lower pole= 1.1 x 0.9 x 1.1 cm Left Kidney: wnl Upper IVC: wnl Abd Aorta: Ectatic with AAA at distal portion 4.3 cm largest measurement The visualized liver is homogenous. The intrahepatic portion of the IVC is within normal limits. Th ere is aneurysmal change of distal abdominal aorta measuring 3.8 x 4.3 cm transversely more prominent than on CT from 2013. There is no evidence of cholelithiasis. Common bile duct is unremarkable. Th e visualized portions of the pancreas are homogenous. Central calcification for splenic hilum could r eflect calcified splenic artery. Curvilinear density in spleen on CT is not clearly present. Kidneys are symmetric and free of hydronephrosis. Technologist marked simple appearing 1.0 cm cyst lower pole level right kidney. IMPRESSION: New AAA measuring up to 4.3 cm in size. At minimum annual imaging surveillance is advised .
== END | disposition home or self-care (01) ==
LOC: RADUSWWP 09:18
PROVIDERS: ATTEND Internal Medicine
DX: I71.4 Abdominal aortic aneurysm, without rupture (principal)
CPT/HCPCS: 76700

== ENCOUNTER 2018-04-23 16:22 | Inpatient (IN) | payer BC, MEDICARE ==
[2018-04-23] MEDS ORDERED: ALBUTEROL NEBULIZED 2.5 MG/3 ML INHALATION STA (16:33)
[2018-04-23] MEDS ORDERED: methylPREDNISolone SOD SUCCI 125 MG/2 ML VIAL IV STA (16:33)
[2018-04-23] MEDS ORDERED: SODIUM CHLORIDE 0.9% 1,000 ML IV STA (16:33)
[2018-04-23] MEDS ORDERED: IPRATROPIUM 0.5 MG/2.5 ML NEBU INHALATION STA (16:33)
--- NOTE | 2018-04-23 16:34 | ED ---
SOB HPI - General Chief Complaint: Shortness of Breath Stated Complaint: Cervical Pain Time Seen by Provider: 04/23/18 16:33 Source: patient, RN notes reviewed, old records reviewed Mode of arrival: ambulatory Limitations: no limitations - History of Present Illness Initial Comments: This is an 82-year-old female the ER with persistent shortness of breath, palpitations difficulty catching her breath. Patient has history of A. fib, COPD and recent diagnosis of URI, patient was instructed to come to ER earlier in the week did not want to do that. Patient presents now for that issue. No recent travel history no sick contacts. Patient denies current fever or chest pain MD Complaint: shortness of breath, cough -: week(s) Severity: moderate Severity scale (1-10): 4 Quality: other (no pain) Consistency: intermittent Improves With: rest Worsens With: exertion Known History Of: COPD, congestive heart failure, other (AfibRVR) Context: recent URI Associated Symptoms: denies other symptoms - Related Data Home Medications Medication Instructions Recorded Confirmed Atenolol [Tenormin] 25 mg PO DAILY 02/13/14 04/23/18 Ezetimibe/Simvastatin [Vytorin 1 tab PO DAILY 02/13/14 04/23/18 10-20 mg Tablet] Gabapentin [Neurontin] 100 mg PO BID 11/14/15 04/23/18 Furosemide [Lasix] 40 mg PO BID 03/22/16 04/23/18 Warfarin Sodium [Coumadin] 2 mg PO Q48H 08/15/16 04/23/18 amLODIPine [Norvasc] 5 mg PO DAILY 08/15/16 04/23/18 Warfarin [Coumadin] 1 mg PO Q48H 09/20/16 04/23/18 Allopurinol [Zyloprim] 300 mg PO DAILY 04/23/18 04/23/18 Fluconazole [Diflucan] See Taper PO DAILY 04/23/18 04/23/18 Allergies Allergy/AdvReac Type Severity Reaction Status Date / Time No Known Allergies Allergy Verified 04/23/18 17:09 Review of Systems ROS Statement: Those systems with pertinent positive or pertinent negative responses have been documented in the HPI. ROS Other: All systems not noted in ROS Statement are negative. 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, URINARY INCONTINENCE, ABD HERNIA,DIVERTICULITIS History of Any Multi-Drug Resistant Organisms: None Reported Past Surgical History: Adenoidectomy, Appendectomy, Breast Surgery, Heart Catheterization, Hysterectomy, Tonsillectomy Additional Past Surgical History / Comment(s): CATARACTS-LENS IMPLANTS, CYSTOCELE/RECTOCELE AND HOLE IN BOWEL REPAIRED, LT HAND THUMB SX, BREAST BIOPSY- NEG Past Anesthesia/Blood Transfusion Reactions: No Reported Reaction Past Psychological History: Anxiety Smoking Status: Former smoker Past Alcohol Use History: None Reported Past Drug Use History: None Reported - Past Family History Father Family Medical History: Cancer, Myocardial Infarction ([place]) Additional Family Medical History / Comment(s): ANEURYSMS, BONE CA. AGE 75 FROM ANEURYSM IN HEAD Mother Family Medical History: Congestive Heart Failure (CHF) Additional Family Medical History / Comment(s): AT AGE 84 General Exam Limitations: no limitations General appearance: alert, in no apparent distress Head exam: Present: atraumatic, normocephalic, normal inspection Eye exam: Present: normal appearance, PERRL, EOMI. Absent: scleral icterus, conjunctival injection, periorbital swelling ENT exam: Present: normal exam, mucous membranes moist Neck exam: Present: normal inspection. Absent: tenderness, meningismus, lymphadenopathy Respiratory exam: Present: wheezes, accessory muscle use, decreased breath sounds, prolonged expiratory. Absent: respiratory distress, rales, rhonchi, stridor Cardiovascular Exam: Present: tachycardia, irregular rhythm, normal heart sounds. Absent: systolic murmur, diastolic murmur, rubs, gallop, clicks GI/Abdominal exam: Present: soft, normal bowel sounds. Absent: distended, tenderness, guarding, rebound, rigid Extremities exam: Present: normal inspection, full ROM, normal capillary refill. Absent: tenderness, pedal edema, joint swelling, calf tenderness Back exam: Present: normal inspection Neurological exam: Present: alert, oriented X3, CN II-XII intact Psychiatric exam: Present: normal affect, normal mood Skin exam: Present: warm, dry, intact, normal color. Absent: rash Course Vital Signs 04/23/18 04/23/18 04/23/18 16:28 16:51 17:00 Temperature 99.1 F Pulse Rate 128 H 118 H Respiratory 18 22 18 Rate Blood Pressure 147/84 101/60 O2 Sat by Pulse 97 99 Oximetry 04/23/18 04/23/18 04/23/18 17:01 17:12 17:20 Temperature Pulse Rate 120 H 119 H 121 H Respiratory 22 22 22 Rate Blood Pressure O2 Sat by Pulse Oximetry 04/23/18 04/23/18 04/23/18 17:26 17:30 18:00 Temperature Pulse Rate 124 H 99 Respiratory 22 17 19 Rate Blood Pressure 115/59 114/73 O2 Sat by Pulse 98 98 Oximetry - Reevaluation(s) Reevaluation #1: 04/23/18 18:54 Medical record is reviewed Reevaluation #2: 04/23/18 18:54 No real improvement with breathing treatment Medical Decision Making - Medical Decision Making 82 female the ER with multifactorial respiratory distress and shortness of breath, COPD with hypoxia and A. fib with RVR. We'll admit for cardiology and pulmonology evaluation - Lab Data Result diagrams: 04/23/18 16:42 04/23/18 16:42 Lab Results 04/23/18 04/23/18 04/23/18 Range/Units 16:42 16:42 16:42 WBC 12.1 H (3.8-10.6) k/uL RBC 5.31 (3.80-5.40) m/uL Hgb 15.7 (11.4-16.0) gm/dL Hct 49.8 H (34.0-46.0) % MCV 93.9 (80.0-100.0) fL MCH 29.5 (25.0-35.0) pg MCHC 31.5 (31.0-37.0) g/dL RDW 15.2 (11.5-15.5) % Plt Count 369 (150-450) k/uL Neutrophils % 70 % Lymphocytes % 22 % Monocytes % 5 % Eosinophils % 2 % Basophils % 1 % Neutrophils # 8.4 H (1.3-7.7) k/uL Lymphocytes # 2.6 (1.0-4.8) k/uL Monocytes # 0.6 (0-1.0) k/uL Eosinophils # 0.2 (0-0.7) k/uL Basophils # 0.1 (0-0.2) k/uL PT (9.0-12.0) sec INR (<1.2) APTT (22.0-30.0) sec D-Dimer (<0.60) mg/L FEU Sodium 142 (137-145) mmol/L Potassium 5.3 H (3.5-5.1) mmol/L Chloride 105 (98-107) mmol/L Carbon Dioxide 28 (22-30) mmol/L Anion Gap 9 mmol/L BUN 24 H (7-17) mg/dL Creatinine 1.03 (0.52-1.04) mg/dL Est GFR (CKD-EPI)AfAm 59 (>60 ml/min/1.73 sqM) Est GFR (CKD-EPI)NonAf 51 (>60 ml/min/1.73 sqM) Glucose 116 H (74-99) mg/dL Calcium 9.7 (8.4-10.2) mg/dL Total Bilirubin 0.6 (0.2-1.3) mg/dL AST 31 (14-36) U/L ALT 31 (9-52) U/L Alkaline Phosphatase 133 H (38-126) U/L Total Creatine Kinase 48 (30-135) U/L CK-MB (CK-2) 0.8 (0.0-2.4) ng/mL CK-MB (CK-2) Rel Index 1.7 Troponin I <0.012 (0.000-0.034) ng/mL NT-Pro-B Natriuret Pep pg/mL Total Protein 6.8 (6.3-8.2) g/dL Albumin 3.8 (3.5-5.0) g/dL 04/23/18 04/23/18 Range/Units 16:42 16:42 WBC (3.8-10.6) k/uL RBC (3.80-5.40) m/uL Hgb (11.4-16.0) gm/dL Hct (34.0-46.0) % MCV (80.0-100.0) fL MCH (25.0-35.0) pg MCHC (31.0-37.0) g/dL RDW (11.5-15.5) % Plt Count (150-450) k/uL Neutrophils % % Lymphocytes % % Monocytes % % Eosinophils % % Basophils % % Neutrophils # (1.3-7.7) k/uL Lymphocytes # (1.0-4.8) k/uL Monocytes # (0-1.0) k/uL Eosinophils # (0-0.7) k/uL Basophils # (0-0.2) k/uL PT 23.5 H (9.0-12.0) sec INR 2.4 H (<1.2) APTT 33.8 H (22.0-30.0) sec D-Dimer 1.15 H (<0.60) mg/L FEU Sodium (137-145) mmol/L Potassium (3.5-5.1) mmol/L Chloride (98-107) mmol/L Carbon Dioxide (22-30) mmol/L Anion Gap mmol/L BUN (7-17) mg/dL Creatinine (0.52-1.04) mg/dL Est GFR (CKD-EPI)AfAm (>60 ml/min/1.73 sqM) Est GFR (CKD-EPI)NonAf (>60 ml/min/1.73 sqM) Glucose (74-99) mg/dL Calcium (8.4-10.2) mg/dL Total Bilirubin (0.2-1.3) mg/dL AST (14-36) U/L ALT (9-52) U/L Alkaline Phosphatase (38-126) U/L Total Creatine Kinase (30-135) U/L CK-MB (CK-2) (0.0-2.4) ng/mL CK-MB (CK-2) Rel Index Troponin I (0.000-0.034) ng/mL NT-Pro-B Natriuret Pep 1770 pg/mL Total Protein (6.3-8.2) g/dL Albumin (3.5-5.0) g/dL - EKG Data -: EKG Interpreted by Me (EKG shows A. fib rate of 119, QRS 88, QTc 467) - Radiology Data Radiology results: report reviewed (Chest x-rays negative for acute disease), image reviewed Critical Care Time Critical Care Time: Yes Total Critical Care Time: 31 Disposition Clinical Impression: Acute exacerbation of chronic obstructive airways disease, Atrial fibrillation with rapid ventricular response, COPD exacerbation Disposition: ADMITTED IP TO THIS HOSP Condition: Fair Is patient prescribed a controlled substance at d/c from ED?: No Referrals: Kwame Mohan MD [Primary Care Provider] - 1-2 days
[2018-04-23] MEDS ORDERED: DILTIAZEM DRIP BOLUS FROM BAG 1 MG SOLN IV ONE (16:55)
[2018-04-23 17:05] LABS: Basophils # (A) 0.1 k/uL (0-0.2); Basophils % (A) 1 %; Eosinophils # (A) 0.2 k/uL (0-0.7); Eosinophils % (A) 2 %; HCT 49.8 % (34.0-46.0); HGB 15.7 gm/dL (11.4-16.0); Lymphocytes # (A) 2.6 k/uL (1.0-4.8); Lymphocytes % (A) 22 %; MCH 29.5 pg (25.0-35.0); MCHC 31.5 g/dL (31.0-37.0); MCV 93.9 fL (80.0-100.0); Mean Platelet Volume 6.3; Monocytes # (A) 0.6 k/uL (0-1.0); Monocytes % (A) 5 %; Neutrophils # (A) 8.4 k/uL (1.3-7.7); Neutrophils % (A) 70 %; Platelet Count 369 k/uL (150-450); RBC 5.31 m/uL (3.80-5.40); RDW 15.2 % (11.5-15.5); WBC 12.1 k/uL (3.8-10.6)
[2018-04-23] MEDS: DILTIAZEM 50 MG in SODIUM CHLORIDE 0.9% 40 ML IV SCH ×2 (17:15→21:51)
[2018-04-23 17:17] LABS: Albumin 3.8 g/dL (3.5-5.0); Calcium 9.7 mg/dL (8.4-10.2); Potassium 5.3 mmol/L (3.5-5.1); Total Bilirubin 0.6 mg/dL (0.2-1.3); Total Protein 6.8 g/dL (6.3-8.2)
[2018-04-23 17:19] LABS: Creatine Kinase 48 U/L (30-135)
[2018-04-23 17:28] LABS: Creatine Kinase MB 0.8 ng/mL (0.0-2.4); Troponin I <0.012 ng/mL (0.000-0.034)
[2018-04-23 17:42] LABS: INR 2.4 (<1.2); Partial Thromboplastin Time 33.8 sec (22.0-30.0); Prothrombin Time 23.5 sec (9.0-12.0)
[2018-04-23] MEDS ORDERED: FUROSEMIDE 10 MG/ML 4 ML VIAL IV STA (17:42)
[2018-04-23 17:44] LABS: D-Dimer 1.15 mg/L FEU (<0.60)
[2018-04-23] MEDS: MORPHINE SULFATE 2 MG/ML SYRINGE IVP STA ×2 (17:55→18:25)
[2018-04-23] MEDS ORDERED: ACETAMINOPHEN TAB 325 MG TAB PO STA (18:25)
--- NOTE | 2018-04-23 18:35 | XR ---
EXAMINATION TYPE: XR chest 2V DATE OF EXAM: 04/23/2018 COMPARISON: NONE HISTORY: Dyspnea and wheezing TECHNIQUE: Frontal and lateral views of the chest are obtained. FINDINGS: There is no focal air space opacity, pleural effusion, or pneumothorax seen. The cardiac silhouette size is within normal limits. The osseous structures are intact. IMPRESSION: No acute cardiopulmonary process.
[2018-04-23] MEDS: SODIUM CHLORIDE 0.9% 1,000 ML IV SCH (20:24)
[2018-04-23] MEDS: methylPREDNISolone SOD SUCCI 125 MG/2 ML VIAL IV SCH (22:54)
--- NOTE | 2018-04-24 00:10 | HP ---
HISTORY AND PHYSICAL CHIEF COMPLAINT: Shortness of breath. HISTORY OF PRESENT ILLNESS: This is an 82-year-old female who presented to the emergency room because of shortness of breath. In the emergency room, the patient was also noted to be in atrial fibrillation with rapid ventricular rate. She does have a history of chronic atrial fibrillation. She has a history of COPD, chronic bronchial condition. She, for the past week, has had a cold. Last she did see her primary physician, Dr. Mohan. She was advised cough syrup and was given Diflucan for an oral thrush. She had symptoms suggestive of a viral upper respiratory. The patient said, however, things just somewhat worsened and because of these symptoms she presented to the hospital. PAST MEDICAL HISTORY: Significant for COPD, history of chronic atrial fibrillation. No history of any myocardial infarction, CVA. No other history of lung disease, liver disease, kidney disease, ulcers, TB, hepatitis. No history of any rheumatic fever, myocardial infarction or CVA. PAST SURGICAL HISTORY: Significant for tonsillectomy, appendectomy, vaginal hysterectomy, rectocele, cystocele repair and at that time she had a bowel injury which was repaired. PERSONAL HISTORY: Nonsmoker, smoked for a couple years when she was a teenager. Alcohol occasional. ALLERGIES: None known. MEDICATIONS: At home include: 1. Norvasc 5 mg daily. 2. Coumadin 2 mg every other day. 3. Neurontin 100 mg b.i.d. 4. Lasix 40 mg b.i.d. 5. Diflucan 100 mg daily. 6. Vytorin 10/20 one daily. 7. Tenormin 25 mg daily. 8. Allopurinol 300 mg daily. SOCIAL HISTORY: Patient is and lives with spouse. Spouse has mesothelioma and is in end of life status. FAMILY MEDICAL HISTORY: Father age of 76, he had a brain aneurysm and other abdominal aneurysms and peripheral arterial disease. Mother at the age of 84 with CA of breasts. The patient had one sister who at age of 74 with abdominal aortic aneurysm rupture. A sister in 82 range. She had a history of alcohol dependency and some other ailments. The patient has 2 daughters in good health. 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 REVIEW OF SYSTEMS: NEURO: Denies any headaches, dizziness, double vision or blurred vision. No symptoms to suggest TIA, syncope, seizures. PSYCH: No anxiety or depression. Some concern regarding spouse being at home ill. CARDIAC: Denies chest pain, angina, palpitations. RESPIRATORY: Presently complains of shortness of breath and cough. No hemoptysis. Some chest pain with coughing, not anginal pain. GI: No nausea, vomiting, abdominal pain, however, with the cough the patient does have some fecal and urinary incontinence. : Denies any symptoms of dysuria, hematuria, urgency. Does have incontinence. EXTREMITIES: Denies pain. Occasional edema. CONSTITUTIONAL: No fevers or chills. HEMATOLOGIC: No anemia or bleeding disorders. ENDOCRINE: No history of diabetes mellitus or hypothyroidism. SKIN: No rashes. PHYSICAL EXAMINATION: Pleasant 82-year-old man in no distress at present. With the oxygen on and having received treatment her heart rate is back into the normal range. At the time of examination, vital signs reveals temperature 98.1, pulse 85, respirations 18, blood pressure 95/63, pulse ox 94% on 2 L. In the emergency room the patient's temperature was 99.1, heart rate 128, respirations 18, blood pressure 147/84, pulse ox 97% room air. HEENT: Normocephalic. NECK: Supple. Pupils are reactive. Nostrils are clear. Oral cavity is moist. She has almost 50% of her teeth lost. Ears reveal no drainage. Neck reveals no JVD. Difficult to assess for carotid bruits with respirations at present. No thyromegaly. No supraclavicular lymphadenopathy. CHEST: Examination is increased percussion noted bilateral. Generalized decreased air flow, expiratory wheeze and rhonchi. CARDIAC: Distant heart sounds S1, S2 with no gallops. Systolic murmur 2/6 left sternal border. Irregular rhythm. ABDOMEN: Soft. No palpable masses. Bowel sounds normal. No organomegaly. No abdominal bruits. EXTREMITIES: Trace edema, pretibial. NEUROLOGIC: Awake, alert, oriented x3 with well-coordinated movements both upper lower extremities. 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 Plantars are downgoing. LABORATORY ASSESSMENT: White count 12.1, hemoglobin 15.7, platelets 369,000. INR 2.4. Potassium 5.3, otherwise electrolytes normal. BUN 24, creatinine 1.03. GFR 51, glucose random 116, alkaline phosphatase 133, BNP 1770. Troponin negative. Chest x-ray, no acute cardiopulmonary process noted. EKG reveals incomplete right bundle branch block. Atrial fibrillation rate of 119. No acute ST-T changes. Nonspecific T-wave changes. ASSESSMENT: 1. Acute exacerbation of chronic obstructive pulmonary disease. 2. Tracheobronchitis. 3. Atrial fibrillation rapid ventricular rate. 4. History of chronic atrial fibrillation. 5. Essential hypertension. 6. Chronic kidney disease stage III. PLAN: Continue present medical regimen with updrafts, oxygen, steroids, and Zithromax. The patient's prognosis remains guarded. Cardizem drip at present to control heart rate, once heart rate is back to normal we will discontinue. The patient's prognosis remains guarded. MMODL / IJN: [id number] /
[2018-04-24 04:57] LABS: INR 2.6 (<1.2); Prothrombin Time 25.1 sec (9.0-12.0)
[2018-04-24] MEDS: SODIUM CHLORIDE 0.9% 1,000 ML IV SCH (05:14)
[2018-04-24 05:29] LABS: Glucose,Whole Blood 209 mg/dL (75-99)
[2018-04-24] MEDS: methylPREDNISolone SOD SUCCI 125 MG/2 ML VIAL IV SCH ×4 (06:25→23:21)
[2018-04-24] MEDS: INSULIN ASPART 100 UNIT/ML 1 ML 10 ML VIAL SQ SCH ×4 (06:26→20:50)
[2018-04-24] MEDS ORDERED: ATENOLOL 25 MG TAB PO SCH (09:00)
[2018-04-24] MEDS: GABAPENTIN 100 MG CAP PO SCH ×2 (09:14→20:50)
[2018-04-24] MEDS: FUROSEMIDE 40 MG TAB PO SCH ×2 (09:14→18:14)
[2018-04-24] MEDS: DILTIAZEM 50 MG in SODIUM CHLORIDE 0.9% 40 ML IV SCH (09:14)
[2018-04-24] MEDS: ALLOPURINOL 300 MG TAB PO SCH (09:14)
[2018-04-24] MEDS: EZETIMIBE 10 MG TAB PO SCH (09:15)
[2018-04-24] MEDS: AZITHROMYCIN 500 MG TAB PO SCH (09:15)
[2018-04-24] MEDS: ATORVASTATIN 10 MG TAB PO SCH (09:15)
--- NOTE | 2018-04-24 11:21 | P.PN ---
Subjective Progress Note Date: 04/24/18 Principal diagnosis: Acute exacerbation COPD This 82-year-old female was admitted yesterday to the hospital with shortness of breath. She is noted to have exacerbation of chronic COPD. She was also atrial fibrillation rapid ventricular rate. She is known to have a history of chronic atrial fibrillation. Yesterday his evaluation patient had denied having had any previous cerebrovascular accidents. She did tell the nurse that she did have a previous stroke. Upon questioning she tells me she had 2 cerebral bleeds in the past with no residual sequelae. This morning denies any headaches dizziness no chest pain palpitations her atrial fibrillation rate is controlled on Cardizem at 5 mg. We will discontinue this. Patient also will be continued on her Coumadin. Patient's spouse at the bedside. REVIEW OF SYSTEMS: Neuro: Denies any headaches dizziness. Psych: Denies anxiety depression feels oriented. Cardiac: Denies chest pain and angina palpitations. Respiratory: Shortness of breath and cough. GI: Denies nausea vomiting or abdominal pain. No diarrhea or constipation, no bowel movement yet. : Denies dysuria hematuria. Extremities: Denies pain. No edema. Skin: Intact. Constitutional: No fever, chills. Objective - Vital Signs Vital signs: Vital Signs Temp 97.4 F L 04/24/18 04:00 Pulse 80 04/24/18 04:00 Resp 18 04/24/18 04:00 BP 117/56 04/24/18 04:00 Pulse Ox 98 04/24/18 04:00 Intake & Output 04/23/18 04/24/18 04/24/18 18:59 06:59 18:59 Intake Total 23 530 Balance 23 530 Weight 77.111 kg 76.5 kg Intake: Intake, IV Titration 23 50 Amount Diltiazem 50 mg In Sodium 23 50 Chloride 0.9% 40 ml @ 5 MG/HR 5 mls/hr IV .Q10H GENIE Rx#:[id number] Oral 480 Other: Voiding Method Toilet # Voids 1 3 PHYSICAL EXAMINATION: Cooperative, at present in no acute distress. HEENT: Neck supple. No JVD. Chest: Generalized decreased airflow bilaterally expiratory wheeze and rhonchi Cardiac: Normal S1-S2 with no gallops. Heart rate is irregularly irregular rate controlled. Systolic murmur left sternal border 2/6 . Abdomen: Soft bowel sounds present. Extremities: No edema no tenderness Neurologically: Awake, alert, oriented with well-coordinated movements. - Labs CBC & Chem 7: 04/23/18 16:42 04/23/18 16:42 Labs: Abnormal Lab Results - Last 24 Hours (Table) 04/23/18 04/23/18 04/23/18 Range/Units 16:42 16:42 16:42 WBC 12.1 H (3.8-10.6) k/uL Hct 49.8 H (34.0-46.0) % Neutrophils # 8.4 H (1.3-7.7) k/uL PT 23.5 H (9.0-12.0) sec INR 2.4 H (<1.2) APTT 33.8 H (22.0-30.0) sec D-Dimer 1.15 H (<0.60) mg/L FEU Potassium 5.3 H (3.5-5.1) mmol/L BUN 24 H (7-17) mg/dL Glucose 116 H (74-99) mg/dL POC Glucose (mg/dL) (75-99) mg/dL Alkaline Phosphatase 133 H (38-126) U/L 04/24/18 04/24/18 Range/Units 04:29 05:26 WBC (3.8-10.6) k/uL Hct (34.0-46.0) % Neutrophils # (1.3-7.7) k/uL PT 25.1 H (9.0-12.0) sec INR 2.6 H (<1.2) APTT (22.0-30.0) sec D-Dimer (<0.60) mg/L FEU Potassium (3.5-5.1) mmol/L BUN (7-17) mg/dL Glucose (74-99) mg/dL POC Glucose (mg/dL) 209 H (75-99) mg/dL Alkaline Phosphatase (38-126) U/L Assessment and Plan Assessment: ASSESSMENT: 1. Acute exacerbation COPD. 2. Tracheobronchitis. 3. Oral thrush. 4. Atrial fibrillation rapid ventricular rate, rate controlled now. 5. History of chronic atrial fibrillation. 6. Anticoagulated status. PLAN: Continue present medical regimen. Diflucan has been held in view of its interference with Zithromax and Coumadin. This is discussed with the patient. We'll give her nystatin.
[2018-04-24 11:22] LABS: Glucose,Whole Blood 126 mg/dL (75-99)
[2018-04-24 12:33] LABS: Calcium 9.9 mg/dL (8.4-10.2); Potassium 4.5 mmol/L (3.5-5.1)
[2018-04-24 12:38] LABS: INR 2.8 (<1.2); Prothrombin Time 27.3 sec (9.0-12.0)
[2018-04-24] MEDS: IPRATROPIUM-ALBUTEROL 3 ML NEB INHALATION PRN ×2 (15:13→19:12)
[2018-04-24 16:48] LABS: Glucose,Whole Blood 133 mg/dL (75-99)
[2018-04-24] MEDS ORDERED: WARFARIN 1 MG TAB PO SCH (18:00)
[2018-04-24 20:47] LABS: Glucose,Whole Blood 239 mg/dL (75-99)
[2018-04-24] MEDS: ATENOLOL 25 MG TAB PO SCH (20:50)
[2018-04-25] MEDS: SODIUM CHLORIDE 0.9% 1,000 ML IV SCH (02:00)
[2018-04-25 05:43] LABS: Glucose,Whole Blood 142 mg/dL (75-99)
[2018-04-25] MEDS: traMADol 50 MG TAB PO PRN ×2 (05:52→21:14)
[2018-04-25] MEDS: INSULIN ASPART 100 UNIT/ML 1 ML 10 ML VIAL SQ SCH ×4 (06:27→21:15)
[2018-04-25] MEDS: methylPREDNISolone SOD SUCCI 125 MG/2 ML VIAL IV SCH ×4 (06:27→23:17)
[2018-04-25 06:49] LABS: Potassium 4.9 mmol/L (3.5-5.1)
[2018-04-25 06:50] LABS: INR 3.4 (<1.2); Prothrombin Time 33.1 sec (9.0-12.0)
[2018-04-25] MEDS: IPRATROPIUM-ALBUTEROL 3 ML NEB INHALATION PRN ×4 (08:20→19:43)
[2018-04-25] MEDS: FUROSEMIDE 40 MG TAB PO SCH ×2 (08:50→17:37)
[2018-04-25] MEDS: ATENOLOL 25 MG TAB PO SCH ×2 (08:50→21:06)
[2018-04-25] MEDS: GABAPENTIN 100 MG CAP PO SCH ×2 (08:50→21:06)
[2018-04-25] MEDS: AZITHROMYCIN 500 MG TAB PO SCH (08:50)
[2018-04-25] MEDS: ALLOPURINOL 300 MG TAB PO SCH (08:50)
[2018-04-25] MEDS: ATORVASTATIN 10 MG TAB PO SCH (08:50)
[2018-04-25] MEDS: EZETIMIBE 10 MG TAB PO SCH (08:52)
[2018-04-25 11:59] LABS: Glucose,Whole Blood 229 mg/dL (75-99)
[2018-04-25 12:02] LABS: Hemoglobin A1C 5.8 % (4.0-6.0)
--- NOTE | 2018-04-25 12:47 | CT ---
EXAMINATION TYPE: CT angio chest DATE OF EXAM: 04/25/2018 COMPARISON: CT chest March 25, 2016. Two-view chest x-ray 2 days ago HISTORY: Elevated D-dimer and shortness of breath CT DLP: 261.4 mGycm. Automated Exposure Control for Dose Reduction was Utilized. CONTRAST: CTA scan of the thorax is performed with IV Contrast, patient injected with 100 mL of Isovue 370, pul monary embolism protocol. MIP Images are created on CT scanner and reviewed. FINDINGS: LUNGS: Dependent atelectasis both bases is present. No pleural effusion or pneumothorax is seen. No s uspicious focal consolidation is identified. MEDIASTINUM: There is satisfactory enhancement of the pulmonary artery and its branches, there is no CT evidence for pulmonary embolism. There are no greater than 1 cm hilar or mediastinal lymph nodes. There are prominent but subcentimeter bilateral hilar lymph nodes. No cardiomegaly or pericardial e ffusion is seen. There is severe biatrial dilatation redemonstrated. There is reflux of contrast into IVC and hepatic veins. There is mild to moderate right ventricle dilatation. Main pulmonary artery m easures 3.4 cm the bifurcation axial image 52. Adjacent ascending aorta measures up to 3.5 cm in diam eter. Coronary artery calcification is present which is noted marker for underlying coronary artery d isease OTHER: No additional significant abnormality is seen. IMPRESSION: 1. No CT evidence for acute pulmonary embolism. 2. There is severe biatrial dilatation and mild to moderate right ventricular dilatation, there are C T findings suggestive of right heart failure and underlying pulmonary artery hypertension.
[2018-04-25 16:40] LABS: Glucose,Whole Blood 118 mg/dL (75-99)
[2018-04-25] MEDS ORDERED: WARFARIN 2 MG TAB PO SCH (18:00)
[2018-04-25 21:03] LABS: Glucose,Whole Blood 273 mg/dL (75-99)
[2018-04-26] MEDS: methylPREDNISolone SOD SUCCI 125 MG/2 ML VIAL IV SCH ×4 (06:39→23:31)
[2018-04-26 06:46] LABS: Glucose,Whole Blood 135 mg/dL (75-99)
[2018-04-26] MEDS: INSULIN ASPART 100 UNIT/ML 1 ML 10 ML VIAL SQ SCH ×4 (07:10→22:09)
[2018-04-26] MEDS: SODIUM CHLORIDE 0.9% 1,000 ML IV SCH ×2 (07:10→18:38)
[2018-04-26 07:44] LABS: Prothrombin Time 57.4 sec (9.0-12.0)
[2018-04-26] MEDS: IPRATROPIUM-ALBUTEROL 3 ML NEB INHALATION PRN ×3 (08:09→20:19)
[2018-04-26] MEDS: ATENOLOL 25 MG TAB PO SCH ×2 (08:32→20:46)
[2018-04-26] MEDS: ATORVASTATIN 10 MG TAB PO SCH (08:32)
[2018-04-26] MEDS: GABAPENTIN 100 MG CAP PO SCH ×2 (08:32→20:46)
[2018-04-26] MEDS: EZETIMIBE 10 MG TAB PO SCH (08:32)
[2018-04-26] MEDS: ALLOPURINOL 300 MG TAB PO SCH (08:32)
[2018-04-26] MEDS: FUROSEMIDE 40 MG TAB PO SCH ×2 (08:33→17:55)
[2018-04-26] MEDS: AZITHROMYCIN 500 MG TAB PO SCH (08:33)
[2018-04-26 09:57] LABS: INR 5.9 (<1.2)
[2018-04-26] MEDS ORDERED: PHYTONADIONE 10 MG in SODIUM CHLORIDE 0.9% 50 ML IVPB STA (10:30)
[2018-04-26 12:06] LABS: Glucose,Whole Blood 249 mg/dL (75-99)
[2018-04-26 16:39] LABS: Glucose,Whole Blood 76 mg/dL (75-99)
[2018-04-26] MEDS: CLOTRIMAZOLE TROCHE 10 MG TROCHE MUCOUS MEM SCH ×2 (17:54→20:46)
[2018-04-26 21:22] LABS: Glucose,Whole Blood 215 mg/dL (75-99)
[2018-04-26] MEDS: traMADol 50 MG TAB PO PRN (22:09)
[2018-04-27 06:30] LABS: Glucose,Whole Blood 132 mg/dL (75-99)
[2018-04-27] MEDS: INSULIN ASPART 100 UNIT/ML 1 ML 10 ML VIAL SQ SCH ×4 (06:57→21:37)
[2018-04-27] MEDS: methylPREDNISolone SOD SUCCI 125 MG/2 ML VIAL IV SCH ×4 (06:58→23:06)
[2018-04-27 07:47] LABS: INR 1.3 (<1.2); Prothrombin Time 13.5 sec (9.0-12.0)
[2018-04-27] MEDS: ATORVASTATIN 10 MG TAB PO SCH (08:37)
[2018-04-27] MEDS: AZITHROMYCIN 500 MG TAB PO SCH (08:37)
[2018-04-27] MEDS: ALLOPURINOL 300 MG TAB PO SCH (08:37)
[2018-04-27] MEDS: CLOTRIMAZOLE TROCHE 10 MG TROCHE MUCOUS MEM SCH ×4 (08:37→20:41)
[2018-04-27] MEDS: GABAPENTIN 100 MG CAP PO SCH ×2 (08:37→20:40)
[2018-04-27] MEDS: ATENOLOL 25 MG TAB PO SCH ×2 (08:37→20:40)
[2018-04-27] MEDS: EZETIMIBE 10 MG TAB PO SCH (08:37)
[2018-04-27] MEDS: FUROSEMIDE 40 MG TAB PO SCH ×2 (08:37→16:52)
[2018-04-27] MEDS ORDERED: LEVOFLOXACIN 500 MG TAB PO SCH (09:00)
[2018-04-27 11:18] LABS: Glucose,Whole Blood 282 mg/dL (75-99)
[2018-04-27] MEDS: SODIUM CHLORIDE 0.9% 1,000 ML IV SCH (13:07)
[2018-04-27 14:09] VITALS: BMI 31.8
--- NOTE | 2018-04-27 16:02 | P.CNPUL ---
History of Present Illness Consult date: 04/27/18 Requesting physician: Huseyin Guy Reason for consult: COPD Chief complaint: Shortness of breath cough and wheezing History of present illness: This is an 82-year-old female with history of COPD, chronic atrial fibrillation , maintained on Coumadin, patient smoked many years ago, and she was diagnosed by her primary care physician Dr. Kwame Mohan as having COPD. Patient has been treated in the past with bronchodilators, she is not O2 dependent and she is not prednisone dependent. Patient came into the ER on 04/23/2018 with multiple complaints including shortness of breath, cough, wheezing, patient was noted to be at the time in atrial fibrillation with RVR. Few days prior to her presentation, patient had symptoms of upper respiratory tract infection, cold- like symptoms, and she also had some oral pharyngeal thrush treated with Diflucan by her primary care physician. At any rate patient was admitted, her atrial fibrillation is presently under control, patient continues to have cough. The cough is productive with yellow phlegm, patient had 2 episodes were in the sputum was blood days. Patient is maintained on Coumadin. CT angiogram of the chest was done today, and basically showed no evidence of active pulmonary process. No evidence of infiltrate, no evidence of masses, and no evidence of any endobronchial pathology. Considering the persistence of her symptoms of cough wheezing and shortness of breath, this consult was initiated. Presently the patient denies any headache, no blurred vision, no dizziness. She has mostly symptoms of cough and wheezing, some shortness of breath, intermittent palpitations, no nausea no vomiting no abdominal pain no melena no hematemesis no dysuria and no frequency no urgency. 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, URINARY INCONTINENCE, ABD HERNIA,DIVERTICULITIS History of Any Multi-Drug Resistant Organisms: None Reported Past Surgical History: Adenoidectomy, Appendectomy, Breast Surgery, Heart Catheterization, Hysterectomy, Tonsillectomy Additional Past Surgical History / Comment(s): CATARACTS-LENS IMPLANTS, CYSTOCELE/RECTOCELE AND HOLE IN BOWEL REPAIRED, LT HAND THUMB SX, BREAST BIOPSY- NEG, 4 cm AAA Past Anesthesia/Blood Transfusion Reactions: No Reported Reaction Past Psychological History: Anxiety Additional Psychological History / Comment(s): related to procedure Smoking Status: Former smoker Past Alcohol Use History: None Reported Additional Past Alcohol Use History / Comment(s): 1/2 PPD Past Drug Use History: None Reported - Past Family History Father Family Medical History: Cancer, Myocardial Infarction (ND) Additional Family Medical History / Comment(s): ANEURYSMS, BONE CA. AGE 75 FROM ANEURYSM IN HEAD Mother Family Medical History: Congestive Heart Failure (CHF) Additional Family Medical History / Comment(s): AT AGE 84 Medications and Allergies Home Medications Medication Instructions Recorded Confirmed Type Atenolol [Tenormin] 25 mg PO DAILY 02/13/14 04/23/18 History Ezetimibe/Simvastatin [Vytorin 1 tab PO DAILY 02/13/14 04/23/18 History 10-20 mg Tablet] Gabapentin [Neurontin] 100 mg PO BID 11/14/15 04/23/18 History Furosemide [Lasix] 40 mg PO BID 03/22/16 04/23/18 History Warfarin Sodium [Coumadin] 2 mg PO Q48H 08/15/16 04/23/18 History amLODIPine [Norvasc] 5 mg PO DAILY 08/15/16 04/23/18 History Warfarin [Coumadin] 1 mg PO Q48H 09/20/16 04/23/18 History Allopurinol [Zyloprim] 300 mg PO DAILY 04/23/18 04/23/18 History Fluconazole [Diflucan] See Taper PO DAILY 04/23/18 04/23/18 History Allergies Allergy/AdvReac Type Severity Reaction Status Date / Time No Known Allergies Allergy Verified 04/23/18 17:09 Physical Exam Vitals: Vital Signs Temp Pulse Pulse Resp BP Pulse Ox 04/27/18 11:46 97.0 F L 87 18 126/75 94 L 04/27/18 08:00 97.6 F 86 20 117/76 92 L 04/27/18 04:00 97.4 F L 85 19 119/77 95 04/27/18 00:00 97.9 F 77 19 116/71 94 L 04/26/18 20:27 83 04/26/18 20:21 80 04/26/18 20:15 98.8 F 90 19 112/78 96 01/22/19 16:00 97.3 F L 90 18 120/60 95 Intake and Output 04/27/18 04/27/18 04/27/18 06:59 14:59 22:59 Intake Total 490 600 Output Total 600 Balance 490 0 Intake: IV 10 0.9 10 Oral 480 600 Output: Urine 600 Other: Voiding Method Toilet # Voids 3 Weight 76.5 kg 76.5 kg Physical Exam: Revealed 82-year-old female, pleasant, in no distress. Head: Atraumatic normocephalic. HEENT:[Neck is supple.] [No neck masses.] [No thyromegaly.] [No JVD.] Chest: [Diffuse rhonchi and wheezes bilaterally, symmetrical chest expansion, no chest wall tenderness..] Cardiac Exam: Irregular irregular rhythm. [Normal S1 and S2, no S3 gallop, 2/6 systolic murmur thought the precordium.] Abdomen: [Soft, nontender, no megaly, no rebound, no guarding, normal bowel sounds.] Extremities: [No clubbing, no edema, no cyanosis.] Neurological Exam: [No focal neurologic deficit. Psychiatric: Normal mood, affect and mental status examination. Skin: No rashes.] Results - Laboratory Findings CBC and BMP: 04/23/18 16:42 04/25/18 05:54 PT/INR, D-dimer PT 13.5 sec (9.0-12.0) H 04/27/18 06:16 INR 1.3 (<1.2) H 04/27/18 06:16 D-Dimer 1.15 mg/L FEU (<0.60) H 04/23/18 16:42 Abnormal lab findings: Abnormal Labs 04/23/18 04/23/18 04/23/18 16:42 16:42 16:42 WBC 12.1 H Hct 49.8 H Neutrophils # 8.4 H PT 23.5 H INR 2.4 H APTT 33.8 H D-Dimer 1.15 H Potassium 5.3 H BUN 24 H Glucose 116 H POC Glucose (mg/dL) Alkaline Phosphatase 133 H 04/24/18 04/24/18 04/24/18 04:29 05:26 11:21 WBC Hct Neutrophils # PT 25.1 H INR 2.6 H APTT D-Dimer Potassium BUN Glucose POC Glucose (mg/dL) 209 H 126 H Alkaline Phosphatase 04/24/18 04/24/18 04/24/18 11:29 11:29 16:46 WBC Hct Neutrophils # PT 27.3 H INR 2.8 H APTT D-Dimer Potassium BUN 23 H Glucose 107 H POC Glucose (mg/dL) 133 H Alkaline Phosphatase 04/24/18 04/25/18 04/25/18 20:46 05:41 05:54 WBC Hct Neutrophils # PT 33.1 H INR 3.4 H APTT D-Dimer Potassium BUN Glucose POC Glucose (mg/dL) 239 H 142 H Alkaline Phosphatase 04/25/18 04/25/18 04/25/18 05:54 11:37 16:33 WBC Hct Neutrophils # PT INR APTT D-Dimer Potassium BUN 29 H Glucose 144 H POC Glucose (mg/dL) 229 H 118 H Alkaline Phosphatase 04/25/18 04/26/18 04/26/18 21:01 06:45 07:05 WBC Hct Neutrophils # PT 57.4 H INR 5.9 H* APTT D-Dimer Potassium BUN Glucose POC Glucose (mg/dL) 273 H 135 H Alkaline Phosphatase 04/26/18 04/26/18 04/27/18 12:04 21:21 06:16 WBC Hct Neutrophils # PT 13.5 H INR 1.3 H APTT D-Dimer Potassium BUN Glucose POC Glucose (mg/dL) 249 H 215 H Alkaline Phosphatase 04/27/18 04/27/18 06:29 11:16 WBC Hct Neutrophils # PT INR APTT D-Dimer Potassium BUN Glucose POC Glucose (mg/dL) 132 H 282 H Alkaline Phosphatase - Diagnostic Findings CT scan - chest: image reviewed (As noted in HPI. Negative CT for pulmonary embolism. No active pulmonary process noted) Assessment and Plan Assessment: Impression: 1 acute exacerbation of COPD 2 acute purulent tracheobronchitis and intermittent hemoptysis most likely secondary to Coumadin coagulopathy. INR yesterday was 5.9, presently 1.3, and she has no symptoms of hemoptysis today. 3 acute purulent tracheobronchitis 4 atrial fibrillation presently controlled. 5 chronic kidney disease stage III 6 benign essential hypertension Recommendation: Discussed and reviewed all the workup including CT angiogram of the chest, chest x-ray, labs, proceeded to adding Pulmicort updrafts twice a day , also recommended that we continue Zithromax, and I added Rocephin. Bronchoscopy could be considered, however considering the patient is on Coumadin , we'll decide whether bronchoscopy is needed in the next 2 days. If the patient does not improve in the next 24 hours, will definitely consider bronchoscopy and must hold Coumadin and make sure that INR is below 1.5. We'll continue to follow. Time with Patient: Greater than 30
[2018-04-27 16:19] LABS: Glucose,Whole Blood 98 mg/dL (75-99)
--- NOTE | 2018-04-27 16:55 | P.CRDCN ---
History of Present Illness Consult date: 04/27/18 Chief complaint: Shortness of breath History of present illness: This is a pleasant 82-year-old female patient with a past medical history significant for chronic persistent atrial fibrillation maintaining oral anticoagulation with Coumadin, as well as history of chronic obstructive pulmonary disease, presented to the emergency room complaining of shortness of breath. The patient does have a baseline shortness of breath related to COPD. For the last several days, she has been experiencing worsening in her shortness of breath. Beside that she has been experiencing a cough productive of sputum and sometimes she mentioned small amount of blood with it. Denies having any fever but she mentioned that she had chills all the time. Denies having any symptoms of chest pain or chest discomfort. She stated that her Lasix swollen every once a while but that mainly in the ankle area. She did not gain any weight. No syncope. Please note that the patient did have some symptoms of upper respiratory infection before she presented to the emergency room. When she presented to the emergency room, it was noted that she was in atrial fibrillation with RVR which is likely triggered by her respiratory issue. The EKG showed atrial fibrillation with uncontrolled heart rate was diffuse nonspecific ST and T wave abnormalities. She underwent a computed tomography scan of the chest and that showed no evidence of any pulmonary embolism but she did have enlargement of her both atria as well as right ventricle. She underwent an echocardiogram in 2016 and that revealed normal left ventricular systolic function without any significant valvular abnormalities. The patient is not aware of any prior history of coronary artery disease, congestive heart failure, and the only cardiac issue she does have is atrial fibrillation which is chronic persistent. 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, URINARY INCONTINENCE, ABD HERNIA,DIVERTICULITIS History of Any Multi-Drug Resistant Organisms: None Reported Past Surgical History: Adenoidectomy, Appendectomy, Breast Surgery, Heart Catheterization, Hysterectomy, Tonsillectomy Additional Past Surgical History / Comment(s): CATARACTS-LENS IMPLANTS, CYSTOCELE/RECTOCELE AND HOLE IN BOWEL REPAIRED, LT HAND THUMB SX, BREAST BIOPSY- NEG, 4 cm AAA Past Anesthesia/Blood Transfusion Reactions: No Reported Reaction Past Psychological History: Anxiety Additional Psychological History / Comment(s): related to procedure Smoking Status: Former smoker Past Alcohol Use History: None Reported Additional Past Alcohol Use History / Comment(s): 1/2 PPD Past Drug Use History: None Reported - Past Family History Father Family Medical History: Cancer, Myocardial Infarction ([place]) Additional Family Medical History / Comment(s): ANEURYSMS, BONE CA. AGE 75 FROM ANEURYSM IN HEAD Mother Family Medical History: Congestive Heart Failure (CHF) Additional Family Medical History / Comment(s): AT AGE 84 Medications and Allergies Home Medications Medication Instructions Recorded Confirmed Type Atenolol [Tenormin] 25 mg PO DAILY 02/13/14 04/23/18 History Ezetimibe/Simvastatin [Vytorin 1 tab PO DAILY 02/13/14 04/23/18 History 10-20 mg Tablet] Gabapentin [Neurontin] 100 mg PO BID 11/14/15 04/23/18 History Furosemide [Lasix] 40 mg PO BID 03/22/16 04/23/18 History Warfarin Sodium [Coumadin] 2 mg PO Q48H 08/15/16 04/23/18 History amLODIPine [Norvasc] 5 mg PO DAILY 08/15/16 04/23/18 History Warfarin [Coumadin] 1 mg PO Q48H 09/20/16 04/23/18 History Allopurinol [Zyloprim] 300 mg PO DAILY 04/23/18 04/23/18 History Fluconazole [Diflucan] See Taper PO DAILY 04/23/18 04/23/18 History Allergies Allergy/AdvReac Type Severity Reaction Status Date / Time No Known Allergies Allergy Verified 04/23/18 17:09 Physical Exam Vitals: Vital Signs Temp Pulse Pulse Resp BP Pulse Ox 04/27/18 15:57 97.4 F L 89 18 122/73 94 L 04/27/18 11:46 97.0 F L 87 18 126/75 94 L 04/27/18 08:00 97.6 F 86 20 117/76 92 L 04/27/18 04:00 97.4 F L 85 19 119/77 95 04/27/18 00:00 97.9 F 77 19 116/71 94 L 04/26/18 20:27 83 04/26/18 20:21 80 04/26/18 20:15 98.8 F 90 19 112/78 96 Intake and Output 01/04/27/18 04/27/18 06:59 14:59 22:59 Intake Total 490 600 Output Total 600 Balance 490 0 Intake: IV 10 0.9 10 Oral 480 600 Output: Urine 600 Other: Voiding Method Toilet # Voids 3 Weight 76.5 kg 76.5 kg - Constitutional General appearance: no acute distress - Respiratory Respiratory: bilateral: rhonchi - Cardiovascular Rhythm: irregularly irregular Heart sounds: normal: S1, S2 Results 04/23/18 16:42 04/25/18 05:54 Coagulation 04/27/18 Range/Units 06:16 PT 13.5 H (9.0-12.0) sec Current Medications Generic Name Dose Route Start Last Admin Trade Name Freq PRN Reason Stop Dose Admin Albuterol/Ipratropium 3 ml 04/24/18 10:28 04/26/18 20:19 Duoneb 0.5 Mg-3 Mg/3 Ml Soln INHALATION 3 ml RT-QID PRN Administration Shortness Of Breath Or Wheezing Allopurinol 300 mg 04/24/18 09:00 04/27/18 08:37 Zyloprim PO 300 mg DAILY GENIE Administration Atenolol 25 mg 04/24/18 21:00 04/27/18 08:37 Tenormin PO 25 mg BID GENIE Administration Atorvastatin Calcium 10 mg 04/24/18 09:00 04/27/18 08:37 Lipitor PO 10 mg DAILY GENIE Administration Azithromycin 500 mg 04/27/18 09:00 04/27/18 08:37 Zithromax PO 500 mg DAILY GENIE Administration Budesonide 1 mg 04/27/18 20:00 Pulmicort INHALATION RT-BID GENIE Clotrimazole 10 mg 04/26/18 18:00 04/27/18 13:05 Mycelex Damien MUCOUS MEM 10 mg QID GENIE Administration Ezetimibe 10 mg 04/24/18 09:00 04/27/18 08:37 Zetia PO 10 mg DAILY GENIE Administration Furosemide 40 mg 04/24/18 09:00 04/27/18 08:37 Lasix PO 40 mg BID@0900,1600 GENIE Administration Gabapentin 100 mg 04/24/18 09:00 04/27/18 08:37 Neurontin PO 100 mg BID GENIE Administration Sodium Chloride 1,000 mls @ 50 mls/hr 04/23/18 19:00 04/27/18 13:07 Saline 0.9% IV Not Given .Q20H GENIE Ceftriaxone Sodium 1,000 mg/ 50 mls @ 100 mls/hr 04/27/18 15:30 Sodium Chloride IVPB Q24HR GENIE Insulin Aspart 0 unit 04/24/18 07:30 04/27/18 16:46 Novolog SQ Not Given ACHS [facility] Protocol Methylprednisolone Sodium Succinate 60 mg 04/24/18 00:00 04/27/18 12:26 Solu-Medrol IV 60 mg Q6HR GENIE Administration Miscellaneous Information 1 each 04/27/18 11:52 Coumadin Per Pharmacy MISCELLANE DIRECTED PRN Per Protocol Tramadol HCl 50 mg 04/23/18 22:00 04/26/18 22:09 Ultram PO 50 mg TID PRN Administration Mild Pain Warfarin Sodium 1 mg 04/27/18 18:00 Coumadin PO 04/27/18 18:01 ONCE@1800 ONE Intake and Output 04/27/18 04/27/18 04/27/18 06:59 14:59 22:59 Intake Total 490 600 Output Total 600 Balance 490 0 Intake: IV 10 0.9 10 Oral 480 600 Output: Urine 600 Other: Voiding Method Toilet # Voids 3 Weight 76.5 kg 76.5 kg Patient Weight 04/28/18 06:59 Weight 76.5 kg 04/23/18 16:42 04/25/18 05:54 Assessment and Plan Assessment: Assessment #1 shortness of breath, likely pulmonary related more than cardiac related #2 acute exacerbation of COPD #3 acute tracheobronchitis #4 chronic atrial fibrillation was controlled heart rate #5 right ventricular enlargement and biatrial enlargement on the computed tomography scan of the chest Plan #1 the patient does not seem to be in any overt congestive heart failure, right or left #2 I will start with a transthoracic echocardiogram to assess the right and left ventricular dimension and systolic function #3 the right sided enlargement is likely related to the chronic lung disease/ COPD #4 transesophageal echocardiogram may be warranted to rule out any atrial septal defect with a [id number] shunt #5 I would continue the current medical regimen. The patient atrial fibrillation is well controlled. She is anticoagulated with Coumadin #6 follow-up with the patient. Thank you for allowing us participate in her care with continue following up with the patient
[2018-04-27] MEDS ORDERED: WARFARIN 1 MG TAB PO ONE (18:00)
[2018-04-27] MEDS: BUDESONIDE 1 MG/2 ML NEBU INHALATION SCH (20:58)
[2018-04-27] MEDS: IPRATROPIUM-ALBUTEROL 3 ML NEB INHALATION PRN (20:58)
[2018-04-27 21:08] LABS: Glucose,Whole Blood 229 mg/dL (75-99)
[2018-04-27] MEDS: traMADol 50 MG TAB PO PRN (21:37)
[2018-04-28 05:57] LABS: Glucose,Whole Blood 129 mg/dL (75-99)
[2018-04-28] MEDS: INSULIN ASPART 100 UNIT/ML 1 ML 10 ML VIAL SQ SCH ×4 (06:49→22:31)
[2018-04-28] MEDS: methylPREDNISolone SOD SUCCI 125 MG/2 ML VIAL IV SCH ×4 (06:51→22:32)
[2018-04-28 07:39] LABS: INR 1.2 (<1.2); Prothrombin Time 12.6 sec (9.0-12.0)
[2018-04-28] MEDS: BUDESONIDE 1 MG/2 ML NEBU INHALATION SCH ×2 (07:58→20:22)
--- NOTE | 2018-04-28 09:51 | ECHOF ---
Referral Reason:right side enlargement MEASUREMENTS -------- HEIGHT: 152.4 cm WEIGHT: 77.1 kg BP: 130/87 RVIDd: 2.7 cm (< 3.3) IVSd: 1.3 cm (0.6 - 1.1) LVIDd: 4.5 cm (3.9 - 5.3) LVPWd: 1.3 cm (0.6 - 1.1) IVSs: 1.7 cm LVIDs: 3.6 cm LVPWs: 1.4 cm LA Diam: 3.6 cm (2.7 - 3.8) LAESV Index (A-L): 57.72 ml/m Ao Diam: 3.4 cm (2.0 - 3.7) AV Cusp: 1.9 cm (1.5 - 2.6) LA Diam: 4.7 cm (2.7 - 3.8) MV EXCURSION: 20.130 mm (> 18.000) MV EF SLOPE: 129 mm/s (70 - 150) EPSS: 1.1 cm MV E Dhruv: 0.94 m/s MV DecT: 95 ms MV A Dhruv: 0.02 m/s MV E/A Ratio: 40.76 RAP: 10.00 mmHg RVSP: 41.98 mmHg FINDINGS -------- Atrial fibrillation. This was a technically adequate study. The left ventricular size is normal. There is borderline concentric left ventricular hypertrophy. Overall left ventricular systolic function is normal with, an EF between 55 - 60 %. The right ventricle is normal in size. The left atrium is markedly dilated. LA is severely dilated >40 ml/m2 The right atrial size is normal. There is mild aortic valve sclerosis. Trace to mild aortic regurgitation. The mitral valve leaflets are mildly thickened. Mild mitral annular calcification present. Modera gm-sd-jmnqws mitral regurgitation is present. Ucxq-lf-jvrzwujg tricuspid regurgitation present. There is mild to moderate pulmonary hypertension. The right ventricular systolic pressure, as measured by Doppler, is 41.98mmHg. Trace/mild (physiologic) pulmonic regurgitation. The aortic root size is normal. There is no pericardial effusion. CONCLUSIONS -------- 1. The left ventricular size is normal. 2. There is borderline concentric left ventricular hypertrophy. 3. Overall left ventricular systolic function is normal with, an EF between 55 - 60 %. 4. The right ventricle is normal in size. 5. The left atrium is markedly dilated. 6. LA is severely dilated >40 ml/m2 7. The right atrial size is normal. 8. There is mild aortic valve sclerosis. 9. Trace to mild aortic regurgitation. 10. The mitral valve leaflets are mildly thickened. 11. Mild mitral annular calcification present. 12. Tdonfwwk-ni-zeqima mitral regurgitation is present. 13. Vyij-ss-fhpchcnk tricuspid regurgitation present. 14. There is mild to moderate pulmonary hypertension. 15. The right ventricular systolic pressure, as measured by Doppler, is 41.98mmHg. 16. Trace/mild (physiologic) pulmonic regurgitation. 17. The aortic root size is normal. 18. There is no pericardial effusion. SPOOL WINDER: Niecy Clement RDCS
--- NOTE | 2018-04-28 11:03 | PN ---
PROGRESS NOTE DATE OF SERVICE: 04/25/2018 This is an 82-year-old white female who was admitted by Dr. Guy this weekend and as he was covering me this weekend and patient was admitted with acute exacerbation of chronic obstructive pulmonary disease. Patient was having increasing shortness of breath and cough for the past 1 week and was progressively getting worse and the patient was recently seen in my office for some difficulty in swallowing and patient was found to have possible oral and esophageal candidiasis, and the patient was started on Diflucan and nystatin oral suspension. Since admission, patient was started on IV antibiotics and she is currently receiving Zithromax and also she was started on IV Solu-Medrol and updraft treatments and patient is clinically improving. Patient also is known to have chronic atrial fibrillation with and at the time of admission, patient had atrial fibrillation with rapid ventricular response and patient the ventricular rate is now controlled with Cardizem. Patient is clinically improving. She is afebrile. Pulse 80 per minute, irregular, respirations 20 per minute, blood pressure 117/56. The patient is alert and oriented and a still using nasal oxygen constantly and lungs revealed a few scattered rhonchi bilaterally and has expiratory wheeze. Overall prognosis is guarded. Will continue current medications and treatments. MMODL / IJN: [id number] /
[2018-04-28] MEDS: ALLOPURINOL 300 MG TAB PO SCH (11:08)
[2018-04-28] MEDS: ATORVASTATIN 10 MG TAB PO SCH (11:09)
[2018-04-28] MEDS: ATENOLOL 25 MG TAB PO SCH ×2 (11:09→20:52)
[2018-04-28] MEDS: AZITHROMYCIN 500 MG TAB PO SCH (11:09)
[2018-04-28] MEDS: CLOTRIMAZOLE TROCHE 10 MG TROCHE MUCOUS MEM SCH ×4 (11:10→20:52)
[2018-04-28] MEDS: EZETIMIBE 10 MG TAB PO SCH (11:10)
[2018-04-28] MEDS: FUROSEMIDE 40 MG TAB PO SCH ×2 (11:10→15:39)
[2018-04-28] MEDS: GABAPENTIN 100 MG CAP PO SCH ×2 (11:11→20:52)
--- NOTE | 2018-04-28 11:11 | PN ---
PROGRESS NOTE DATE OF SERVICE: 04/26/2018 This is an 82-year-old white female was admitted to the hospital through the emergency room with COPD with acute tracheobronchitis and with atrial fibrillation with rapid ventricular response and patient was having increasing shortness of breath for the past 1 week and patient has been started on IV antibiotics and updraft treatments and IV Solu-Medrol and also she has been placed back on her previous home medications. She is currently on DuoNeb breathing treatments, Allopurinol 300 mg p.o. daily, atenolol 25 mg p.o. b.i.d., Zithromax 500 mg daily, and Lasix 40 mg b.i.d., Neurontin 100 mg p.o. b.i.d. and NovoLog sliding scale, Solu-Medrol 60 mg IV q.6 hours and Ultram 50 mg p.o. t.i.d. p.r.n. Clinically, patient shows some improvement and apparently at the time of admission her D-dimer was slightly elevated and we will get a CT angio of the chest to rule out pulmonary embolism. Otherwise, her vital signs are stable. Heart is in atrial fibrillation with controlled ventricular rate and lungs revealed scattered bilateral rhonchi and expiratory wheeze. Patient is alert and oriented. Overall prognosis guarded. The diagnosis, prognosis and therapeutic plans were discussed in detail with the patient and her today. DIAN / LEON: [id number] /
--- NOTE | 2018-04-28 11:17 | PN ---
PROGRESS NOTE DATE OF SERVICE: 04/27/2018 This is an 82-year-old white female who was admitted to the hospital with severe shortness of breath, cough, and respiratory distress and she was admitted with a diagnosis of acute exacerbation of COPD and acute tracheobronchitis and acute on chronic asthma. Patient is also known to have chronic atrial fibrillation and at the time of admission, patient had atrial fibrillation with rapid ventricular response and the heart rate has been under control now with Cardizem. Patient has been placed on antibiotics and currently receiving Zithromax and also IV Solu-Medrol and updraft treatments. Her D-dimer was slightly elevated and a CT angio of the chest was obtained and apparently was negative for pulmonary embolism, but there was evidence of right heart failure and pulmonary hypertension and overall patient is showing some improvement clinically and since the symptoms and; however, because of these new findings will get a Cardiology consultations and patient has been following with a studio artist, and also will get a Pulmonology consultation. The CT findings were explained in detail to the patient and also to her . Overall prognosis is guarded. MMODL / IJN: [id number] /
--- NOTE | 2018-04-28 11:32 | P.PN ---
Subjective Progress Note Date: 04/28/18 This is a pleasant 82-year-old female with past medical history significant for chronic persistent A. fib maintaining oral anticoagulation with Coumadin, also has a history of chronic COPD. Presented to the hospital primarily with symptoms of worsening shortness of breath. She was seen in consultation by Dr. Schuster yesterday. On presentation here was noted that the patient was in A. fib with RVR, she underwent a computed tomography scan of the chest which revealed no evidence of pulmonary embolism. Currently receiving treatment for COPD exacerbation and acute tracheobronchitis. No evidence of overt congestive heart failure. Patient was seen and examined this morning, she does state overall that her breathing is improving. Continues to have coarse wheezing and rhonchi throughout. Echocardiogram with Doppler study was performed which revealed an ejection fraction of 55-60%. LA is severely dilated , moderate to severe MR, fswj-ls-wkygksiq TR. Blood pressure this morning 124/ 76 with a heart rate in the 80s, temperature 97.4. INR today is 1.2. Objective - Vital Signs Vital signs: Vital Signs Temp 97.4 F L 04/28/18 08:00 Pulse 84 04/28/18 09:38 Resp 20 04/28/18 09:38 BP 124/77 04/28/18 08:00 Pulse Ox 93 L 04/28/18 04:00 Intake & Output 04/27/18 04/28/18 04/28/18 18:59 06:59 18:59 Intake Total 239 866 6116 Output Total 600 Balance 609 369 1677 Weight 76.5 kg 77.2 kg Intake: IV 10 0.9 10 Oral 014 849 7188 Output: Urine 600 Other: Voiding Method Toilet Toilet # Voids 2 1 1 - Exam PHYSICAL EXAMINATION: GENERAL: 82-year-old female in no acute distress at the time of my examination HEENT: Head is atraumatic, normocephalic. Pupils equal, round. Sclera anicteric. Conjunctiva are clear. Mucous membranes of the mouth are moist. Neck is supple. There is no elevated jugular venous pressure. No carotid bruit is heard. HEART EXAMINATION: Heart S1 and S2 irregularly irregular a systolic murmur is heard CHEST EXAMINATION: lungs reveal coarse wheezing and rhonchi throughout ABDOMEN: Soft, nontender. Bowel sounds are heard. No organomegaly noted. EXTREMITIES: 2+ peripheral pulses with no evidence of peripheral edema and no calf tenderness noted. NEUROLOGIC patient is awake, alert and oriented 3 . - Labs CBC & Chem 7: 04/23/18 16:42 04/25/18 05:54 Labs: Abnormal Lab Results - Last 24 Hours (Table) 04/27/18 04/27/18 04/28/18 Range/Units 11:16 21:01 05:55 PT (9.0-12.0) sec INR (<1.2) POC Glucose (mg/dL) 282 H 229 H 129 H (75-99) mg/dL 04/28/18 Range/Units 07:10 PT 12.6 H (9.0-12.0) sec INR 1.2 H (<1.2) POC Glucose (mg/dL) (75-99) mg/dL Assessment and Plan Plan: Assessment and plan #1 shortness of breath, likely secondary to COPD exacerbation #3 acute tracheobronchitis #4 chronic atrial fibrillation with controlled heart rate #5 chronic kidney disease stage III #6 hypertension Plan Echocardiogram with Doppler study was performedwhich revealed a normal left ventricular systolic function. Moderate to severe mitral regurgitation with mild to moderate tricuspid regurg. Severely dilated left atrium. Coumadin is currently being dosed by primary care doc, her INR is subtherapeutic today at 1.2. Cardiology's perspective, we'll recommend to continue the patient on her current medications. Maintain an INR in the range of 2-2.5. DNP note has been reviewed, I agree with a documented findings and plan of care. Patient was seen and examined.
[2018-04-28 11:37] LABS: Glucose,Whole Blood 235 mg/dL (75-99)
[2018-04-28] MEDS: SODIUM CHLORIDE 0.9% 1,000 ML IV SCH (11:54)
[2018-04-28] MEDS: IPRATROPIUM-ALBUTEROL 3 ML NEB INHALATION PRN ×2 (11:54→20:22)
--- NOTE | 2018-04-28 16:36 | P.PN ---
Subjective Progress Note Date: 04/28/18 Principal diagnosis: Shortness of breath, cough and wheezing This is an 82-year-old female with history of COPD, chronic atrial fibrillation , maintained on Coumadin, patient smoked many years ago, and she was diagnosed by her primary care physician Dr. Kwame Mohan as having COPD. Patient has been treated in the past with bronchodilators, she is not O2 dependent and she is not prednisone dependent. Patient came into the ER on 04/23/2018 with multiple complaints including shortness of breath, cough, wheezing, patient was noted to be at the time in atrial fibrillation with RVR. Few days prior to her presentation, patient had symptoms of upper respiratory tract infection, cold- like symptoms, and she also had some oral pharyngeal thrush treated with Diflucan by her primary care physician. At any rate patient was admitted, her atrial fibrillation is presently under control, patient continues to have cough. The cough is productive with yellow phlegm, patient had 2 episodes were in the sputum was blood days. Patient is maintained on Coumadin. CT angiogram of the chest was done today, and basically showed no evidence of active pulmonary process. No evidence of infiltrate, no evidence of masses, and no evidence of any endobronchial pathology. Considering the persistence of her symptoms of cough wheezing and shortness of breath, this consult was initiated. Presently the patient denies any headache, no blurred vision, no dizziness. She has mostly symptoms of cough and wheezing, some shortness of breath, intermittent palpitations, no nausea no vomiting no abdominal pain no melena no hematemesis no dysuria and no frequency no urgency. On 04/28/2018 patient seen in follow-up on selective care unit, she is sitting up in the chair, in no acute distress, her is at the bedside, on today' s exam lung sounds are diminished, with some expiratory wheezes, but less medical spastic compared to yesterday's exam, minimal rales at the bases, no further hemoptysis, today's INR is 1.2, she remains on antibiotic coverage including Rocephin and Zithromax, overall she states she is less dyspneic and less wheezy. Room air pulse ox is 93%, afebrile, hemodynamically stable. No sputum culture was sent. She is on nebulized treatments, IV Solu-Medrol. She is on oral Lasix, complaints of worsening dyspnea or chest pain. Objective - Vital Signs Vital signs: Vital Signs Temp 97.9 F 04/28/18 12:23 Pulse 82 04/28/18 12:23 Resp 20 04/28/18 12:23 BP 135/75 04/28/18 12:23 Pulse Ox 93 L 04/28/18 04:00 Intake & Output 04/27/18 04/28/18 04/28/18 18:59 06:59 18:59 Intake Total 245 736 7918 Output Total 600 Balance 920 814 3767 Weight 76.5 kg 77.2 kg Intake: IV 10 0.9 10 Oral 828 989 7765 Output: Urine 600 Other: Voiding Method Toilet Toilet # Voids 2 1 1 - Exam GENERAL EXAM: Alert, pleasant, 82-year-old elderly white female on room air comfortable in no apparent distress. HEAD: Normocephalic/atraumatic. EYES: Normal reaction of pupils, equal size. Conjunctiva pink, sclera white. NOSE: Clear with pink turbinates. THROAT: No erythema or exudates. NECK: No masses, no JVD, no thyroid enlargement, no adenopathy. CHEST: No chest wall deformity. Symmetrical expansion. LUNGS: End expiratory wheezes, and minimal bibasilar crackles CVS: Regular rate and rhythm, normal S1 and S2, no gallops, no murmurs, no rubs ABDOMEN: Soft, nontender. No hepatosplenomegaly, normal bowel sounds, no guarding or rigidity. EXTREMITIES: No clubbing, no edema, no cyanosis, 2+ pulses and upper and lower extremities. MUSCULOSKELETAL: Muscle strength and tone normal. SPINE: No scoliosis or deformity SKIN: No rashes CENTRAL NERVOUS SYSTEM: Alert and oriented -3. No focal deficits, tone is normal in all 4 extremities. PSYCHIATRIC: Alert and oriented -3. Appropriate affect. Intact judgment and insight. - Labs CBC & Chem 7: 04/23/18 16:42 04/25/18 05:54 Labs: Abnormal Lab Results - Last 24 Hours (Table) 04/27/18 04/28/18 04/28/18 Range/Units 21:01 05:55 07:10 PT 12.6 H (9.0-12.0) sec INR 1.2 H (<1.2) POC Glucose (mg/dL) 229 H 129 H (75-99) mg/dL 04/28/18 Range/Units 11:35 PT (9.0-12.0) sec INR (<1.2) POC Glucose (mg/dL) 235 H (75-99) mg/dL Assessment and Plan Plan: 1 acute exacerbation of COPD 2 acute purulent tracheobronchitis and intermittent hemoptysis most likely secondary to Coumadin coagulopathy. INR yesterday was 5.9, presently 1.3, and she has no symptoms of hemoptysis today. 3 acute purulent tracheobronchitis 4 atrial fibrillation presently controlled. 5 chronic kidney disease stage III 6 benign essential hypertension Plan: Today current medical treatment, patient is improving, less dyspneic, less bronchospastic, fever or chills, continue current antibiotic coverage. Patient is starting to improve, no plans for bronchoscopy, may resume her Coumadin. We' ll continue to follow I performed a history & physical examination of the patient and discussed their management with my nurse practitioner, Billie Amin. I reviewed the nurse practitioner's note and agree with the documented findings and plan of care. Lung sounds are positive for expiratory wheezes and bibasilar crackles. The findings and the impression was discussed with the patient. I attest to the documentation by the nurse practitioner.
[2018-04-28 16:40] LABS: Glucose,Whole Blood 119 mg/dL (75-99)
[2018-04-28] MEDS ORDERED: WARFARIN 2 MG TAB PO ONE (18:00)
[2018-04-28 21:15] LABS: Glucose,Whole Blood 287 mg/dL (75-99)
--- NOTE | 2018-04-28 22:03 | PN ---
PROGRESS NOTE DATE OF SERVICE: 04/28/2018 This is an 82-year-old white female who was admitted to the hospital with severe shortness of breath and cough and wheezing. She was found to be in respiratory distress. She is known to have COPD. She has been sick for the past one week and she was admitted to the hospital with COPD with acute exacerbation, acute tracheobronchitis and asthma. In the hospital, patient was started on IV antibiotics and IV Solu-Medrol and updraft treatments. She is also known to have chronic atrial fibrillation and congestive heart failure. The patient was clinically improving, but she had a slightly elevated D-dimer. A CT angiogram was obtained and this showed evidence of right heart failure and pulmonary hypertension. There was no evidence of any pulmonary embolism. Cardiology consultation and pulmonology consultations were obtained. Patient was seen by warehouse production worker and she is being evaluated by warehouse production worker. She is going to have an echocardiogram. The patient was also seen by Dr. Servin in consultation, and he recommended adding Rocephin IV. If she is not improving, he is planning to do a bronchoscopy. The patient still is having shortness of breath and also severe expiratory wheeze. The patient also has been placed back on her previous home medications. Patient has been on a small dose of Coumadin; she was getting 2 mg every other day and her PT and INR were extremity prolonged, so Coumadin is being held. Now Pharmacy is dosing the Coumadin. Patient is alert and oriented. She denies any chest pain and has no new complaints. Overall prognosis is guarded. The diagnosis, prognosis and therapeutic plans were discussed in detail with the patient and also with her . Dr. Servin is also following the patient, and if her condition is not improving with the new antibiotics, he is planning to do a bronchoscopy. MMODL / IJN: [id number] /
[2018-04-29 06:05] LABS: Glucose,Whole Blood 124 mg/dL (75-99)
[2018-04-29] MEDS: methylPREDNISolone SOD SUCCI 125 MG/2 ML VIAL IV SCH ×4 (06:11→23:01)
[2018-04-29] MEDS: INSULIN ASPART 100 UNIT/ML 1 ML 10 ML VIAL SQ SCH ×4 (06:11→21:15)
[2018-04-29] MEDS: SODIUM CHLORIDE 0.9% 1,000 ML IV SCH (06:12)
[2018-04-29 07:34] LABS: INR 1.2 (<1.2); Prothrombin Time 12.6 sec (9.0-12.0)
[2018-04-29] MEDS: BUDESONIDE 1 MG/2 ML NEBU INHALATION SCH ×2 (08:14→21:05)
[2018-04-29] MEDS: IPRATROPIUM-ALBUTEROL 3 ML NEB INHALATION PRN (08:14)
[2018-04-29] MEDS: EZETIMIBE 10 MG TAB PO SCH (08:29)
[2018-04-29] MEDS: ATORVASTATIN 10 MG TAB PO SCH (08:30)
[2018-04-29] MEDS: ALLOPURINOL 300 MG TAB PO SCH (08:30)
[2018-04-29] MEDS: ATENOLOL 25 MG TAB PO SCH ×2 (08:30→19:29)
[2018-04-29] MEDS: GABAPENTIN 100 MG CAP PO SCH ×2 (08:30→19:29)
[2018-04-29] MEDS: CLOTRIMAZOLE TROCHE 10 MG TROCHE MUCOUS MEM SCH ×4 (08:30→21:15)
[2018-04-29] MEDS: AZITHROMYCIN 500 MG TAB PO SCH (08:30)
[2018-04-29] MEDS: FUROSEMIDE 40 MG TAB PO SCH ×2 (08:30→15:29)
[2018-04-29 11:28] LABS: Glucose,Whole Blood 191 mg/dL (75-99)
--- NOTE | 2018-04-29 13:55 | P.PN ---
Subjective Progress Note Date: 04/29/18 Principal diagnosis: Shortness of breath, cough and wheezing This is an 82-year-old female with history of COPD, chronic atrial fibrillation , maintained on Coumadin, patient smoked many years ago, and she was diagnosed by her primary care physician Dr. Kwame Mohan as having COPD. Patient has been treated in the past with bronchodilators, she is not O2 dependent and she is not prednisone dependent. Patient came into the ER on 04/23/2018 with multiple complaints including shortness of breath, cough, wheezing, patient was noted to be at the time in atrial fibrillation with RVR. Few days prior to her presentation, patient had symptoms of upper respiratory tract infection, cold- like symptoms, and she also had some oral pharyngeal thrush treated with Diflucan by her primary care physician. At any rate patient was admitted, her atrial fibrillation is presently under control, patient continues to have cough. The cough is productive with yellow phlegm, patient had 2 episodes were in the sputum was blood days. Patient is maintained on Coumadin. CT angiogram of the chest was done today, and basically showed no evidence of active pulmonary process. No evidence of infiltrate, no evidence of masses, and no evidence of any endobronchial pathology. Considering the persistence of her symptoms of cough wheezing and shortness of breath, this consult was initiated. Presently the patient denies any headache, no blurred vision, no dizziness. She has mostly symptoms of cough and wheezing, some shortness of breath, intermittent palpitations, no nausea no vomiting no abdominal pain no melena no hematemesis no dysuria and no frequency no urgency. On 04/28/2018 patient seen in follow-up on selective care unit, she is sitting up in the chair, in no acute distress, her is at the bedside, on today' s exam lung sounds are diminished, with some expiratory wheezes, but less medical spastic compared to yesterday's exam, minimal rales at the bases, no further hemoptysis, today's INR is 1.2, she remains on antibiotic coverage including Rocephin and Zithromax, overall she states she is less dyspneic and less wheezy. Room air pulse ox is 93%, afebrile, hemodynamically stable. No sputum culture was sent. She is on nebulized treatments, IV Solu-Medrol. She is on oral Lasix, complaints of worsening dyspnea or chest pain. On 04/29/2018 patient seen in follow-up on selective care unit, she continues to improve, minimal wheezes, still has a congested cough, but overall improved compared to previous exams, she is in sinus mechanism, no fever no chills, no further hemoptysis, no complaints of worsening shortness of breath. Her Coumadin has been resumed, INR today is 1.2. Patient was given 2 mg of Coumadin last night. Room air pulse ox is 93%, hemodynamically stable, patient is tolerating ambulation. Objective - Vital Signs Vital signs: Vital Signs Temp 97.8 F 04/29/18 12:54 Pulse 87 04/29/18 12:54 Resp 20 04/29/18 12:54 BP 144/89 04/29/18 12:54 Pulse Ox 93 L 04/29/18 07:54 Intake & Output 04/28/18 04/29/18 04/29/18 18:59 06:59 18:59 Intake Total 2340 100 360 Balance 2340 100 360 Weight 77.9 kg Intake: Intake, IV Titration 100 Amount cefTRIAXone 1,000 mg In 100 Sodium Chloride 0.9% 50 ml @ 100 mls/hr IVPB Q24HR [facility] Rx#:[id number] Oral 2340 360 Other: Voiding Method Toilet Toilet Toilet # Voids 1 0 1 - Exam GENERAL EXAM: Alert, pleasant, 82-year-old elderly white female on room air comfortable in no apparent distress. HEAD: Normocephalic/atraumatic. EYES: Normal reaction of pupils, equal size. Conjunctiva pink, sclera white. NOSE: Clear with pink turbinates. THROAT: No erythema or exudates. NECK: No masses, no JVD, no thyroid enlargement, no adenopathy. CHEST: No chest wall deformity. Symmetrical expansion. LUNGS: Minimal end expiratory wheezes, and minimal bibasilar crackles CVS: Regular rate and rhythm, normal S1 and S2, no gallops, no murmurs, no rubs ABDOMEN: Soft, nontender. No hepatosplenomegaly, normal bowel sounds, no guarding or rigidity. EXTREMITIES: No clubbing, no edema, no cyanosis, 2+ pulses and upper and lower extremities. MUSCULOSKELETAL: Muscle strength and tone normal. SPINE: No scoliosis or deformity SKIN: No rashes CENTRAL NERVOUS SYSTEM: Alert and oriented -3. No focal deficits, tone is normal in all 4 extremities. PSYCHIATRIC: Alert and oriented -3. Appropriate affect. Intact judgment and insight. - Labs CBC & Chem 7: 04/23/18 16:42 04/25/18 05:54 Labs: Abnormal Lab Results - Last 24 Hours (Table) 04/28/18 04/28/18 04/29/18 Range/Units 16:38 21:11 05:53 PT (9.0-12.0) sec INR (<1.2) POC Glucose (mg/dL) 119 H 287 H 124 H (75-99) mg/dL 04/29/18 04/29/18 Range/Units 06:48 11:25 PT 12.6 H (9.0-12.0) sec INR 1.2 H (<1.2) POC Glucose (mg/dL) 191 H (75-99) mg/dL Assessment and Plan Plan: 1 acute exacerbation of COPD 2 acute purulent tracheobronchitis and intermittent hemoptysis most likely secondary to Coumadin coagulopathy. INR yesterday was 5.9, presently 1.3, and she has no symptoms of hemoptysis today. 3 acute purulent tracheobronchitis 4 atrial fibrillation presently controlled. 5 chronic kidney disease stage III 6 benign essential hypertension Plan: Patient continues to improve, less dyspneic, less wheezy, tolerating ambulation , she is on room air, no fever chills, vital signs are stable. From pulmonary perspective patient could be considered for discharge home today or tomorrow on prednisone taper, oral course of antibiotics, nebulized bronchodilators, patient will need follow-up with Dr. Childress in the office in one week I performed a history & physical examination of the patient and discussed their management with my nurse practitioner, Billie Amin. I reviewed the nurse practitioner's note and agree with the documented findings and plan of care. Lung sounds are positive for minimal wheezes and bibasilar crackles. The findings and the impression was discussed with the patient. I attest to the documentation by the nurse practitioner. Time with Patient: Less than 30
--- NOTE | 2018-04-29 14:23 | P.PN ---
Subjective Progress Note Date: 04/29/18 Principal diagnosis: Chronic persistent atrial fibrillation This is a pleasant 82-year-old female patient with known COPD, chronic persistent atrial fibrillation, as well as multiple comorbid conditions , was admitted to the hospital with acute exacerbation of chronic obstructive pulmonary disease. The echo revealed normal LV function was moderate to severe MR, mild-to- moderate TR, and moderate pulmonary hypertension. On follow-up with her today, April 292018, she is feeling slightly better in general of shortness of breath. No chest pain or chest discomfort. No dizziness or lightheadedness and no syncope. She continues to be on atenolol for heart rate control and she continues to be on Coumadin for anticoagulation. Objective - Vital Signs Vital signs: Vital Signs Temp 97.8 F 04/29/18 12:54 Pulse 87 04/29/18 12:54 Resp 20 04/29/18 12:54 BP 144/89 04/29/18 12:54 Pulse Ox 93 L 04/29/18 07:54 Intake & Output 04/28/18 04/29/18 04/29/18 18:59 06:59 18:59 Intake Total 2340 100 360 Balance 2340 100 360 Weight 77.9 kg Intake: Intake, IV Titration 100 Amount cefTRIAXone 1,000 mg In 100 Sodium Chloride 0.9% 50 ml @ 100 mls/hr IVPB Q24HR [facility] Rx#:[id number] Oral 2340 360 Other: Voiding Method Toilet Toilet Toilet # Voids 1 0 1 - Constitutional General appearance: Present: no acute distress - Respiratory Respiratory: bilateral: wheezing - Cardiovascular Rhythm: irregularly irregular Heart sounds: normal: S1, S2 Abnormal Heart Sounds: Present: systolic murmur - Labs CBC & Chem 7: 04/23/18 16:42 04/25/18 05:54 Labs: Abnormal Lab Results - Last 24 Hours (Table) 04/28/18 04/28/18 04/29/18 Range/Units 16:38 21:11 05:53 PT (9.0-12.0) sec INR (<1.2) POC Glucose (mg/dL) 119 H 287 H 124 H (75-99) mg/dL 04/29/18 04/29/18 Range/Units 06:48 11:25 PT 12.6 H (9.0-12.0) sec INR 1.2 H (<1.2) POC Glucose (mg/dL) 191 H (75-99) mg/dL Assessment and Plan Assessment: Assessment #1 shortness of breath, likely pulmonary related more than cardiac related #2 acute exacerbation of COPD #3 acute tracheobronchitis #4 chronic atrial fibrillation was controlled heart rate #5 right ventricular enlargement and biatrial enlargement on the computed tomography scan of the chest Plan #1 continue the current medical regimen including the atenolol as well as Coumadin #2 as an outpatient, the patient needs to be evaluated by [facility] to rule out any atrial septal defect behind her right side enlargement #3 she continues to be not in any overt congestive heart failure at this point #4 follow-up with the patient. Thank you for allowing us participate in her care with continue following up with the patient
[2018-04-29] MEDS ORDERED: FLUCONAZOLE 100 MG TAB PO ONE (15:54)
[2018-04-29 16:25] LABS: Glucose,Whole Blood 154 mg/dL (75-99)
--- NOTE | 2018-04-29 17:07 | PN ---
PROGRESS NOTE DATE OF SERVICE: 04/29/2018 This is an 82-year-old white female who was admitted with chronic obstructive pulmonary disease with acute exacerbation and acute tracheobronchitis. The patient was started on antibiotics, updraft treatments and IV Solu-Medrol. The patient also is known to have chronic atrial fibrillation and she was having rapid ventricular response at the time of admission. This was controlled with Cardizem. The patient was seen by [facility] in consultation and also by Dr. Servin in consultation. Dr. Servin evaluated the patient and she had a CT angio, as her D-dimer was slightly elevated. The test was negative for pulmonary embolism, but the CTA showed evidence of pulmonary hypertension and right heart failure. Dr. Servin recommended doing a bronchoscopy. Also patient was started on Rocephin. Apparently patient's symptoms improved, and Dr. Servin has decided not to do a bronchoscopy now. However, patient also has ange esophagitis and oral thrush. The patient is having difficulty in swallowing. We will start her on Diflucan and nystatin oral suspension. Otherwise, vital signs are stable. She is still having severe cough and expiratory wheeze. Overall prognosis is guarded. The diagnosis, prognosis and therapeutic plans were discussed in detail with the patient and also with her . MMODL / IJN: [id number] /
[2018-04-29] MEDS ORDERED: WARFARIN 2.5 MG TAB PO ONE (18:00)
[2018-04-29 20:56] LABS: Glucose,Whole Blood 198 mg/dL (75-99)
[2018-04-29 23:53] VITALS: TEMP 97.9
[2018-04-30] MEDS: SODIUM CHLORIDE 0.9% 1,000 ML IV SCH (00:48)
[2018-04-30 04:37] VITALS: BP 133/83; RESP 18
[2018-04-30 06:41] LABS: Glucose,Whole Blood 125 mg/dL (75-99)
[2018-04-30] MEDS: INSULIN ASPART 100 UNIT/ML 1 ML 10 ML VIAL SQ SCH ×2 (06:42→12:14)
[2018-04-30] MEDS: methylPREDNISolone SOD SUCCI 125 MG/2 ML VIAL IV SCH ×2 (06:45→12:14)
[2018-04-30 07:14] LABS: Basophils % (A) 0 %; Eosinophils % (A) 0 %; HCT 50.4 % (34.0-46.0); HGB 15.7 gm/dL (11.4-16.0); Lymphocytes # (A) 1.1 k/uL (1.0-4.8); Lymphocytes % (A) 7 %; MCH 29.2 pg (25.0-35.0); MCHC 31.2 g/dL (31.0-37.0); MCV 93.8 fL (80.0-100.0); Mean Platelet Volume 6.4; Monocytes # (A) 0.3 k/uL (0-1.0); Monocytes % (A) 2 %; Neutrophils # (A) 13.4 k/uL (1.3-7.7); Neutrophils % (A) 89 %; Platelet Count 385 k/uL (150-450); RBC 5.37 m/uL (3.80-5.40); RDW 15.3 % (11.5-15.5)
[2018-04-30 07:34] LABS: INR 1.7 (<1.2)
[2018-04-30 07:35] LABS: Prothrombin Time 16.5 sec (9.0-12.0)
[2018-04-30 07:42] LABS: Calcium 8.7 mg/dL (8.4-10.2); Potassium 4.5 mmol/L (3.5-5.1)
[2018-04-30] MEDS: ATENOLOL 25 MG TAB PO SCH (08:25)
[2018-04-30] MEDS: EZETIMIBE 10 MG TAB PO SCH (08:25)
[2018-04-30] MEDS: GABAPENTIN 100 MG CAP PO SCH (08:25)
[2018-04-30] MEDS: CLOTRIMAZOLE TROCHE 10 MG TROCHE MUCOUS MEM SCH ×2 (08:25→12:14)
[2018-04-30] MEDS: ALLOPURINOL 300 MG TAB PO SCH (08:25)
[2018-04-30] MEDS: ATORVASTATIN 10 MG TAB PO SCH (08:25)
[2018-04-30] MEDS: FUROSEMIDE 40 MG TAB PO SCH (08:25)
[2018-04-30] MEDS ORDERED: FLUCONAZOLE 100 MG TAB PO SCH (09:00)
[2018-04-30] MEDS: BUDESONIDE 1 MG/2 ML NEBU INHALATION SCH (09:33)
[2018-04-30 09:35] VITALS: PULSE 96
[2018-04-30 11:05] LABS: Glucose,Whole Blood 274 mg/dL (75-99)
--- NOTE | 2018-04-30 11:53 | P.PN ---
Subjective Progress Note Date: 04/30/18 Principal diagnosis: Chronic persistent atrial fibrillation This is a pleasant 82-year-old female patient with known COPD, chronic persistent atrial fibrillation, as well as multiple comorbid conditions , was admitted to the hospital with acute exacerbation of chronic obstructive pulmonary disease. The echo revealed normal LV function was moderate to severe MR, mild-to- moderate TR, and moderate pulmonary hypertension. On follow-up with her today, April 292018, she stated that the shortness of breath is better. No chest pain or chest discomfort. No dizziness or lightheadedness and no syncope. She continues to be on atenolol for heart rate control and she continues to be on Coumadin for anticoagulation. From the cardiovascular standpoint overview she can be discharged home. Objective - Vital Signs Vital signs: Vital Signs Temp 97.9 F 04/29/18 23:52 Pulse 96 04/30/18 09:35 Resp 18 04/30/18 04:00 BP 133/83 04/30/18 04:00 Pulse Ox 96 04/30/18 09:35 Intake & Output 04/29/18 04/30/18 04/30/18 18:59 06:59 18:59 Intake Total 1440 800 120 Balance 1440 800 120 Weight 77.4 kg Intake: Oral 1440 800 120 Other: Voiding Method Toilet Toilet # Voids 2 3 - Constitutional General appearance: Present: no acute distress - Respiratory Respiratory: bilateral: CTA - Cardiovascular Rhythm: irregularly irregular Heart sounds: normal: S1, S2 - Labs CBC & Chem 7: 04/30/18 06:14 04/30/18 06:14 Labs: Abnormal Lab Results - Last 24 Hours (Table) 04/29/18 04/29/18 04/29/18 Range/Units 11:25 16:18 20:55 WBC (3.8-10.6) k/uL Hct (34.0-46.0) % Neutrophils # (1.3-7.7) k/uL PT (9.0-12.0) sec INR (<1.2) Carbon Dioxide (22-30) mmol/L BUN (7-17) mg/dL Glucose (74-99) mg/dL POC Glucose (mg/dL) 191 H 154 H 198 H (75-99) mg/dL 04/30/18 04/30/18 04/30/18 Range/Units 06:14 06:14 06:14 WBC 15.0 H (3.8-10.6) k/uL Hct 50.4 H (34.0-46.0) % Neutrophils # 13.4 H (1.3-7.7) k/uL PT 16.5 H (9.0-12.0) sec INR 1.7 H (<1.2) Carbon Dioxide 33 H (22-30) mmol/L BUN 49 H (7-17) mg/dL Glucose 134 H (74-99) mg/dL POC Glucose (mg/dL) (75-99) mg/dL 04/30/18 Range/Units 06:40 WBC (3.8-10.6) k/uL Hct (34.0-46.0) % Neutrophils # (1.3-7.7) k/uL PT (9.0-12.0) sec INR (<1.2) Carbon Dioxide (22-30) mmol/L BUN (7-17) mg/dL Glucose (74-99) mg/dL POC Glucose (mg/dL) 125 H (75-99) mg/dL Assessment and Plan Assessment: Assessment #1 shortness of breath, likely pulmonary related more than cardiac related #2 acute exacerbation of COPD #3 acute tracheobronchitis #4 chronic atrial fibrillation was controlled heart rate #5 right ventricular enlargement and biatrial enlargement on the computed tomography scan of the chest Plan #1 continue the current medical regimen including the atenolol as well as Coumadin #2 as an outpatient, the patient needs to be evaluated by [facility] to rule out any atrial septal defect behind her right side enlargement #3 the patient can be discharged home. Thank you for allowing us participate in her care with continue following up with the patient
--- NOTE | 2018-04-30 18:45 | PN ---
PROGRESS NOTE The patient is seen today April 30, 2018 in followup on the selective care unit. She is currently awake and alert, in no acute distress. She has been ambulating in her room without any distress. She is maintaining good O2 saturations in the 90s on room air. She is less short of breath, less bronchospastic and wheezy. She is anxious to go home. PHYSICAL EXAMINATION: On physical examination, she is alert and oriented in no acute distress. Vital signs are stable. Her head is normocephalic. Sclerae anicteric. Her neck is supple. Trachea midline. Her lungs have faint end-expiratory wheeze bilaterally, diminished. Her heart is regular, S1, S2. Her abdomen is soft, nontender. Bowel sounds are present. There is trace peripheral edema. No clubbing, no cyanosis. Peripheral pulses are intact. INVESTIGATIONS: Reviewed. MEDICATIONS: Reviewed. IMPRESSIONS: Acute exacerbation of moderate persistent asthma, recovered. PLAN: The patient was seen and evaluated by Dr. Servin. She is stable from the pulmonary standpoint and is cleared for discharge. She should follow up in our office in one week's time. She and her are both encouraged to call sooner with any recurrence of symptoms or other questions or concerns. She will complete a prednisone taper. Continue bronchodilators. I, the cosigning physician, performed a history and physical examination on the patient. Her lungs do have faint end-expiratory wheeze bilaterally. She is maintaining good O2 saturations in the 90s on room air. I discussed the assessment and plan of care with my nurse practitioner, Rosa Velasquez. I attest to the above note as dictated by her. MMODL / IJN: [id number] /
== END 2018-04-30 14:20 | disposition home or self-care (01) | DRG 191 ==
LOC: EC 16:22 → 3SCARD 18:52
PROVIDERS: ADMIT Internal Medicine; ATTEND Internal Medicine
DX: J44.1 Chronic obstructive pulmonary disease with (acute) exacerbation (principal); J45.41 Moderate persistent asthma with (acute) exacerbation; B37.0 Candidal stomatitis; B37.81 Candidal esophagitis; I13.0 Hypertensive heart and chronic kidney disease with heart failure and stage 1 through stage 4 chronic kidney disease, or unspecified chronic kidney disease; I48.1 Persistent atrial fibrillation; R04.2 Hemoptysis; J44.0 Chronic obstructive pulmonary disease with (acute) lower respiratory infection; I27.29 Other secondary pulmonary hypertension; I50.810 Right heart failure, unspecified; I08.1 Rheumatic disorders of both mitral and tricuspid valves; N18.3 Chronic kidney disease, stage 3 (moderate); J20.9 Acute bronchitis, unspecified; E78.5 Hyperlipidemia, unspecified; R09.02 Hypoxemia; T45.515A Adverse effect of anticoagulants, initial encounter; F41.9 Anxiety disorder, unspecified; M54.2 Cervicalgia; K57.90 Diverticulosis of intestine, part unspecified, without perforation or abscess without bleeding; R79.1 Abnormal coagulation profile; Z79.01 Long term (current) use of anticoagulants; Z79.899 Other long term (current) drug therapy; Z86.73 Personal history of transient ischemic attack (TIA), and cerebral infarction without residual deficits; Z87.891 Personal history of nicotine dependence; Z90.710 Acquired absence of both cervix and uterus; Z87.01 Personal history of pneumonia (recurrent); Z87.440 Personal history of urinary (tract) infections; Z86.718 Personal history of other venous thrombosis and embolism; Z90.49 Acquired absence of other specified parts of digestive tract; Z98.42 Cataract extraction status, left eye; Z98.41 Cataract extraction status, right eye; Z96.1 Presence of intraocular lens; Z80.8 Family history of malignant neoplasm of other organs or systems; Z82.49 Family history of ischemic heart disease and other diseases of the circulatory system
CPT/HCPCS: 36415; 71046; 71275; 80048; 80053; 82550; 82553; 83036; 83880; 84484; 85025; 85379; 85610; 85730; 93005; 93306; 94640; 94644; 94760; 96361; 96374; 96375; 99291

== ENCOUNTER 2018-05-31 10:30 | Emergency (ER) | payer MEDICARE ==
[2018-05-31] MEDS ORDERED: OXYMETAZOLINE 0.05% NASL SPRAY 1 SPRAY BOTTLE NASAL STA (10:48)
[2018-05-31] MEDS ORDERED: LIDOCAINE/EPINEPHR/TETRACAINE 5 ML BOTTLE TOPICAL ONE (10:48)
[2018-05-31] MEDS ORDERED: SILVER NITRATE APPLICATOR 1 EACH STICK..EA. TOPICAL STA (10:48)
[2018-05-31 10:49] VITALS: TEMP 97.4
--- NOTE | 2018-05-31 11:08 | ED ---
ENT HPI - General Chief complaint: ENT Stated complaint: bloody nose Time Seen by Provider: 05/31/18 10:47 Source: patient, family, RN notes reviewed, old records reviewed Mode of arrival: wheelchair Limitations: no limitations - History of Present Illness Initial comments: Patient is an 82-year-old female who presents emergency department today with bloody nose from the left near. Patient reports that her symptoms started at 6 AM. She is on Coumadin for A. fib. Patient reports she's not had her INR checked recently. Patient states that she has had blood down her throat. Patient reports that she's had no nausea or vomiting. She denies any chest pain shortness of breath or lightheadedness. - Related Data Home Medications Medication Instructions Recorded Confirmed Atenolol [Tenormin] 25 mg PO DAILY 02/13/14 05/31/18 Ezetimibe/Simvastatin [Vytorin 1 tab PO DAILY 02/13/14 05/31/18 10-20 mg Tablet] Gabapentin [Neurontin] 100 mg PO BID 11/14/15 05/31/18 Furosemide [Lasix] 40 mg PO BID 03/22/16 05/31/18 Warfarin Sodium [Coumadin] 2 mg PO Q48H 08/15/16 05/31/18 amLODIPine [Norvasc] 5 mg PO DAILY 08/15/16 05/31/18 Allopurinol [Zyloprim] 300 mg PO DAILY 04/23/18 05/31/18 Allergies Allergy/AdvReac Type Severity Reaction Status Date / Time No Known Allergies Allergy Verified 05/31/18 10:56 Review of Systems ROS Statement: Those systems with pertinent positive or pertinent negative responses have been documented in the HPI. ROS Other: All systems not noted in ROS Statement are negative. 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, URINARY INCONTINENCE, ABD HERNIA,DIVERTICULITIS History of Any Multi-Drug Resistant Organisms: None Reported Past Surgical History: Adenoidectomy, Appendectomy, Breast Surgery, Heart Catheterization, Hysterectomy, Tonsillectomy Additional Past Surgical History / Comment(s): CATARACTS-LENS IMPLANTS, CYSTOCELE/RECTOCELE AND HOLE IN BOWEL REPAIRED, LT HAND THUMB SX, BREAST BIOPSY- NEG, 4 cm AAA Past Anesthesia/Blood Transfusion Reactions: No Reported Reaction Past Psychological History: Anxiety Smoking Status: Former smoker Past Alcohol Use History: None Reported Past Drug Use History: None Reported - Past Family History Father Family Medical History: Cancer, Myocardial Infarction (MS) Additional Family Medical History / Comment(s): ANEURYSMS, BONE CA. AGE 75 FROM ANEURYSM IN HEAD Mother Family Medical History: Congestive Heart Failure (CHF) Additional Family Medical History / Comment(s): AT AGE 84 General Exam - General Exam Comments Initial Comments: This is an alert and oriented [id number] female. Patient appears somewhat anxious on initial exam. Limitations: no limitations General appearance: alert, in no apparent distress Head exam: Present: atraumatic, normocephalic, normal inspection Eye exam: Present: normal appearance, PERRL, EOMI. Absent: scleral icterus, conjunctival injection, periorbital swelling ENT exam: Present: normal exam, mucous membranes moist, other (Patient has anterior epistaxis from the left near.) Neck exam: Present: normal inspection. Absent: tenderness, meningismus, lymphadenopathy Respiratory exam: Present: normal lung sounds bilaterally. Absent: respiratory distress, wheezes, rales, rhonchi, stridor Cardiovascular Exam: Present: regular rate, normal rhythm, normal heart sounds. Absent: systolic murmur, diastolic murmur, rubs, gallop, clicks GI/Abdominal exam: Present: soft, normal bowel sounds. Absent: distended, tenderness, guarding, rebound, rigid Extremities exam: Present: normal inspection, full ROM, normal capillary refill. Absent: tenderness, pedal edema, joint swelling, calf tenderness Back exam: Present: normal inspection Neurological exam: Present: alert, oriented X3, CN II-XII intact Psychiatric exam: Present: normal affect, normal mood Skin exam: Present: warm, dry, intact, normal color. Absent: rash Course Vital Signs 05/31/18 05/31/18 10:44 11:06 Temperature 97.4 F L Pulse Rate 72 Respiratory 24 Rate Blood Pressure 120/104 121/90 O2 Sat by Pulse 97 Oximetry Procedures - Procedures Initial comment: Patient has evidence of anterior epistaxis from the left near. I instilled a con ball soaked with lidocaine and epinephrine solution and held this their first 20 minutes with nasal clamp. After this was removed Patient had some small evidence of bleeding over the medial nasal septum. I used silver nitrate cauterized of 3 spots. Patient tolerated procedure well. Patient was held in the emergency department for 30 minutes afterward and had no further bleeding. Medical Decision Making - Medical Decision Making 82-year-old female present to return today with nosebleed. She has had bad nosebleed from the left naris and 6 AM. She is on Coumadin. She's not had her INR checked in the past month. Today we've rechecked it and it was 2.0. She is on Coumadin for A. fib. Discussed with is a normal level. Patient nosebleed was stopped after instilling lidocaine with epinephrine, Afrin, and cauterizing 2-3 spots with silver nitrate stick. Patient is held in ER for 30 minutes after cautery and said no further bleeding. She tolerated the procedures well. We'll discharge the Patient with instructions on using saline spray in the nose and antibiotic ointment in the nose. I advised the Patient to see medical providers at home as well as have close follow-up with her primary care physician. Patient agrees to treatment plan will comply. - Lab Data Lab Results 05/31/18 Range/Units 11:05 PT 20.0 H (9.0-12.0) sec INR 2.0 H (<1.2) APTT 31.9 H (22.0-30.0) sec Disposition Clinical Impression: Nosebleed, Anticoagulation monitoring, INR range 2-3 Disposition: HOME SELF-CARE Condition: Good Instructions (If sedation given, give patient instructions): Nosebleed (ED) Additional Instructions: Patient should purchase saline spray and do frequent saline sprays to bilateral nostrils, 3 times a day. Use antibiotic ointment such as Neosporin on a Q-tip and apply thin layer into each nostril. Recommended that if there is any further nosebleeds to spray Afrin into nare , and use the nasal clamp for 20 minutes. If bleeding continues to persist or if there is any alarming signs or symptoms please return to the ER for reevaluation. Is patient prescribed a controlled substance at d/c from ED?: No Referrals: Kwame Mohan MD [Primary Care Provider] - 1-2 days Time of Disposition: 12:07
[2018-05-31 11:40] LABS: Partial Thromboplastin Time 31.9 sec (22.0-30.0)
[2018-05-31 12:22] VITALS: BP 118/76; PULSE 93; RESP 19
== END 2018-05-31 12:22 | disposition home or self-care (01) ==
LOC: EC 10:30
DX: R04.0 Epistaxis (principal); Z51.81 Encounter for therapeutic drug level monitoring; I48.91 Unspecified atrial fibrillation; I10 Essential (primary) hypertension; F41.9 Anxiety disorder, unspecified; Z86.73 Personal history of transient ischemic attack (TIA), and cerebral infarction without residual deficits; Z87.891 Personal history of nicotine dependence; Z79.01 Long term (current) use of anticoagulants; Z79.899 Other long term (current) drug therapy; Z95.818 Presence of other cardiac implants and grafts
CPT/HCPCS: 30901; 36415; 85610; 85730; 99284

== ENCOUNTER → 2018-07-29 | Outpatient (CLI) | payer MEDICARE ==
[2018-07-29 11:16] LABS: Anisocytosis Slight; HCT 50.1 % (34.0-46.0); HGB 15.7 gm/dL (11.4-16.0); Hypochromasia Slight; MCH 30.4 pg (25.0-35.0); MCHC 31.3 g/dL (31.0-37.0); MCV 97.1 fL (80.0-100.0); Macrocytosis Slight; Mean Platelet Volume 6.8; Platelet Count 257 k/uL (150-450); RBC 5.16 m/uL (3.80-5.40); RDW 16.9 % (11.5-15.5); WBC 9.9 k/uL (3.8-10.6)
[2018-07-29 18:45] LABS: Albumin 4.2 g/dL (3.80-4.90); Albumin/Globulin Ratio 2.63 (1.60-3.17); Anion Gap 7.7 mmol/L (4.00-12.00); Calcium 9.3 mg/dL (8.7-10.3); Carbon Dioxide 26.3 mmol/L (21.6-31.8); Globulin 1.6 g/dL (1.6-3.3); LDL Cholesterol,Calculated 51.8 mg/dL (0.0-131.0); Potassium 4.7 mmol/L (3.5-5.5); Total Bilirubin 0.5 mg/dL (0.2-1.2); Total Protein 5.8 g/dL (6.2-8.2); VLDL Calculation 34.2 mg/dL (5.00-40.00)
[2018-07-29 18:52] LABS: T4, Free (Free Thyroxine) 1.2 ng/dL (0.80-1.80)
== END | disposition home or self-care (01) ==
LOC: LABWHC1 10:25
PROVIDERS: ATTEND Internal Medicine
DX: Z00.00 Encounter for general adult medical examination without abnormal findings (principal); E78.2 Mixed hyperlipidemia; I11.9 Hypertensive heart disease without heart failure; K21.0 Gastro-esophageal reflux disease with esophagitis
CPT/HCPCS: 36415; 80053; 80061; 82272; 84439; 84443; 85027

== ENCOUNTER → 2018-08-11 | Outpatient (CLI) | payer MEDICARE ==
--- NOTE | 2018-08-11 11:50 | CT ---
EXAMINATION TYPE: CT sinus wo con DATE OF EXAM: 08/11/2018 COMPARISON: None HISTORY: 83-year-old female Chronic sinusitis CT DLP: 581.40 mGycm Automated exposure control for dose reduction was used. TECHNIQUE: Noncontrast axial views of the paranasal sinuses were obtained. Coronal reconstructions pe rformed. FINDINGS: PARANASAL SINUSES: Trace mucosal thickening right maxillary sinus and within the left maxillary sinus in the region of t he maxillary antrum. Scattered mild to moderate mucosal thickening anterior ethmoid air cells and trace within the inferio r aspect of the frontal sinuses. frontal Sphenoid sinuses are clear and well pneumatized. There is no air-fluid level. Reactive opal- osteogenesis is not seen. There is no destruction of the osseous armendariz of the paranasal sinuses. THE NASAL CAVITY: The osteomeatal complexes are patent. Slight leftward nasal septal deviation. Moderate cerebral atrophy with atherosclerotic calcifications in the carotid siphons. Mastoid air cells and middle ear cavities are well pneumatized. Reformatted images confirm above findings. IMPRESSION: Chronic pansinus disease characterized by mild mucosal thickening sparing the sphenoid sinuses. Sli ght leftward nasal septal deviation.
== END | disposition home or self-care (01) ==
LOC: RADCTMAIN 10:37
PROVIDERS: ATTEND Otolaryngology
DX: J34.2 Deviated nasal septum (principal); J32.4 Chronic pansinusitis
CPT/HCPCS: 70486

== ENCOUNTER → 2018-08-12 | Outpatient (CLI) | payer MEDICARE ==
--- NOTE | 2018-08-15 10:44 | MM ---
Reason for exam: screening (asymptomatic). Last mammogram was performed 4 years and 10 months ago. History: Patient is postmenopausal. Family history of breast cancer in sister at age 80 and breast cancer in mother at age 70. Benign excisional biopsy of the right breast, August 22, 1997. Excisional biopsy of the left breast. Physical Findings: A clinical breast exam by your physician is recommended on an annual basis and results should be correlated with mammographic findings. MG 3D Screening Mammo W/Cad Bilateral CC and MLO view(s) were taken. Prior study comparison: October 18, 2013, bilateral MG screening mammo w CAD. September 15, 2012, bilateral digital screening mammo w/CAD. There are scattered fibroglandular densities. No significant changes when compared with prior studies. ASSESSMENT: Benign, BI-RAD 2 RECOMMENDATION: Routine screening mammogram of both breasts in 1 year.
== END | disposition home or self-care (01) ==
LOC: RADMAMWWP 11:20
PROVIDERS: ATTEND Internal Medicine
DX: Z12.31 Encounter for screening mammogram for malignant neoplasm of breast (principal)
CPT/HCPCS: 77063; 77067

== ENCOUNTER → 2019-03-09 | Outpatient (CLI) | payer MEDICARE ==
[2019-03-09 20:13] LABS: African American GFR (CKD) 54.1 (60.0-200.0); Anion Gap 9.2 mmol/L (4.00-12.00); BUN/Creat Ratio 21.82 Ratio (12.00-20.00); Calcium 9.5 mg/dL (8.7-10.3); Carbon Dioxide 26.8 mmol/L (21.6-31.8); Non-African American GFR(CKD) 46.7 (60.0-200.0); Potassium 5.3 mmol/L (3.5-5.5)
[2019-03-09 20:22] LABS: T4, Free (Free Thyroxine) 1.1 ng/dL (0.80-1.80)
== END ==
LOC: LABWHC1 10:56
PROVIDERS: ATTEND Internal Medicine
DX: E03.9 Hypothyroidism, unspecified (principal); N18.3 Chronic kidney disease, stage 3 (moderate)
CPT/HCPCS: 36415; 80048; 84439; 84443

== ENCOUNTER → 2019-04-24 | Outpatient (CLI) | payer MEDICARE ==
[2019-04-24 09:01] LABS: Albumin 4.1 g/dL (3.5-5.0); Calcium 9.5 mg/dL (8.4-10.2); Potassium 4.9 mmol/L (3.5-5.1)
--- NOTE | 2019-04-24 11:11 | US ---
EXAMINATION TYPE: US venous doppler duplex LE DATE OF EXAM: 04/24/2019 8:33 AM COMPARISON: NONE CLINICAL HISTORY: M79.662 Pain in left lower leg; M79.661 Pain in. On blood thinners. Hx of blood cl ot in liver and spleen per patient. Patient states swelling. No redness. SIDE PERFORMED: Bilateral TECHNIQUE: The lower extremity deep venous system is examined utilizing real time linear array sonog basil with graded compression, doppler sonography and color-flow sonography. VESSELS IMAGED: External Iliac Vein (EIV) Common Femoral Vein Deep Femoral Vein Greater Saphenous Vein * Femoral Vein Popliteal Vein Small Saphenous Vein * Proximal Calf Veins- limited visualization of right leg (* superficial vessels) Right Leg: Negative for DVT Left Leg: Negative for DVT IMPRESSION: No evidence for DVT at this time.
[2019-04-24 17:40] LABS: Hemoglobin A1C 6.3 % (4.0-6.0)
== END | disposition home or self-care (01) ==
LOC: RADUSWWP 08:00
PROVIDERS: ATTEND Internal Medicine
DX: M79.661 Pain in right lower leg (principal); M79.662 Pain in left lower leg; R22.41 Localized swelling, mass and lump, right lower limb; R22.42 Localized swelling, mass and lump, left lower limb; R60.9 Edema, unspecified; R73.9 Hyperglycemia, unspecified
CPT/HCPCS: 80053; 83036; 83880; 85379; 85652; 93970

== ENCOUNTER → 2019-05-01 | Outpatient (CLI) | payer MEDICARE ==
--- NOTE | 2019-05-01 10:00 | XR ---
EXAMINATION TYPE: XR hand complete RT DATE OF EXAM: 05/01/2019 CLINICAL HISTORY: Pain and swelling after fall injury 2 weeks ago. TECHNIQUE: Frontal, lateral and oblique images of the right hand are obtained. COMPARISON: None. FINDINGS: Demineralization is present. There is no acute fracture/dislocation evident in the right sullivan nd related moderate degenerative change throughout the phalanges involving PIP and DIP joints with na rrowing for reference third DIP joint and marginal spurring. Advanced narrowing of base of first met acarpal with endplate sclerosis and heterotopic ossification. Moderate degenerative change with narro wing and sclerosis at the triscaphe joint. Mild to moderate soft tissue swelling throughout the finge rs. IMPRESSION: There is no acute fracture or dislocation in the right hand.
[2019-05-01 11:08] LABS: Prothrombin Time 84.5 sec (9.0-12.0)
[2019-05-01 11:20] LABS: INR 8.1 (<1.2)
== END ==
LOC: LABWHC1 09:05
PROVIDERS: ATTEND Internal Medicine
DX: M79.641 Pain in right hand (principal); I48.91 Unspecified atrial fibrillation
CPT/HCPCS: 36415; 85610

== ENCOUNTER 2019-05-27 14:36 | Inpatient (IN) | payer MEDICARE ==
[2019-05-27] MEDS ORDERED: MAGNESIUM SULFATE-D5W PMX 1 GM in DEXTROSE/WATER 1 100ML.BAG IVPB STA (14:40)
[2019-05-27] MEDS ORDERED: SODIUM CHLORIDE 0.9% 1,000 ML IV STA (14:40)
[2019-05-27] MEDS ORDERED: methylPREDNISolone SOD SUCCI 125 MG/2 ML VIAL IV STA (14:40)
[2019-05-27] MEDS ORDERED: DILTIAZEM DRIP BOLUS FROM BAG 1 MG SOLN IV ONE (14:46)
[2019-05-27] MEDS ORDERED: DILTIAZEM 125 MG in SODIUM CHLORIDE 0.9% 100 ML IV SCH (15:00)
[2019-05-27 15:08] LABS: Anisocytosis Slight; Basophils % (A) 0 %; Eosinophils % (A) 0 %; HCT 44.4 % (34.0-46.0); HGB 13.9 gm/dL (11.4-16.0); Hypochromasia Slight; Lymphocytes # (A) 1.1 k/uL (1.0-4.8); Lymphocytes % (A) 9 %; MCH 29.7 pg (25.0-35.0); MCHC 31.3 g/dL (31.0-37.0); MCV 94.9 fL (80.0-100.0); Mean Platelet Volume 7.4; Monocytes # (A) 0.6 k/uL (0-1.0); Monocytes % (A) 5 %; Neutrophils # (A) 10.4 k/uL (1.3-7.7); Neutrophils % (A) 85 %; Platelet Count 377 k/uL (150-450); RBC 4.68 m/uL (3.80-5.40); RDW 16.5 % (11.5-15.5); WBC 12.3 k/uL (3.8-10.6)
--- NOTE | 2019-05-27 15:09 | ED ---
SOB HPI - General Chief Complaint: Shortness of Breath Stated Complaint: SOB Time Seen by Provider: 05/27/19 14:39 Source: patient, EMS, RN notes reviewed Mode of arrival: EMS Limitations: no limitations - History of Present Illness Initial Comments: This is a 83-year-old female with a history of atrial fibrillation who states she get dizzy and fell this morning she has some abrasions a left elbow who is back today by EMS complaints of shortness of breath is a 60 Morning she is refractory shortness of breath she is on 2 L of oxygen at home this did not help home medication did not help. She was noted by paramedics have intermittent RVR along with her atrial fibrillation. No complaints of blurry vision no current dizziness no palpitations she denies any chest pain peripheral edema no other modifying factors at this time MD Complaint: shortness of breath - Related Data Home Medications Medication Instructions Recorded Confirmed Gabapentin [Neurontin] 100 mg PO BID 11/14/15 05/27/19 Furosemide [Lasix] 40 mg PO BID 03/22/16 05/27/19 Warfarin Sodium [Coumadin] 1 mg PO [id number] 08/15/16 05/27/19 Acetaminophen Tab [Tylenol] 650 mg PO Q4H PRN 05/27/19 05/27/19 Albuterol Nebulized [Ventolin 2.5 mg INHALATION RT-QID PRN 05/27/19 05/27/19 Nebulized] Albuterol Sulfate [Ventolin HFA] 2 puff INHALATION RT-QID PRN 05/27/19 05/27/19 Allopurinol [Zyloprim] 100 mg PO DAILY 05/27/19 05/27/19 Budesonide [Pulmicort] 0.5 mg INHALATION RT-BID 05/27/19 05/27/19 Budesonide/Formoterol Fumarate 2 puff INHALATION RT-BID 05/27/19 05/27/19 [Symbicort 80-4.5 Mcg Inhaler] Diltiazem HCl 30 mg PO Q8H 05/27/19 05/27/19 Docusate [Colace] 200 mg PO BID 05/27/19 05/27/19 Ezetimibe/Simvastatin [Vytorin 1 tab PO HS 05/27/19 05/27/19 10-10 mg] Ipratropium-Albuterol Nebulize 3 ml INHALATION RT-QID PRN 05/27/19 05/27/19 [Duoneb 0.5 mg-3 mg/3 ml Soln] LORazepam [Ativan] 0.5 mg PO BID 05/27/19 05/27/19 Metoprolol Tartrate [Lopressor] 25 mg PO BID 05/27/19 05/27/19 predniSONE [Deltasone] 40 mg PO DAILY 05/27/19 05/27/19 Allergies Allergy/AdvReac Type Severity Reaction Status Date / Time No Known Allergies Allergy Verified 05/27/19 15:37 Review of Systems ROS Statement: Those systems with pertinent positive or pertinent negative responses have been documented in the HPI. ROS Other: All systems not noted in ROS Statement are negative. 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, URINARY INCONTINENCE, ABD HERNIA,DIVERTICULITIS History of Any Multi-Drug Resistant Organisms: None Reported Past Surgical History: Adenoidectomy, Appendectomy, Breast Surgery, Heart Catheterization, Hysterectomy, Tonsillectomy Additional Past Surgical History / Comment(s): CATARACTS-LENS IMPLANTS, CYSTOCELE/RECTOCELE AND HOLE IN BOWEL REPAIRED, LT HAND THUMB SX, BREAST BIOPSY- NEG, 4 cm AAA Past Anesthesia/Blood Transfusion Reactions: No Reported Reaction Past Psychological History: Anxiety Smoking Status: Former smoker Past Alcohol Use History: None Reported Past Drug Use History: None Reported - Past Family History Father Family Medical History: Cancer, Myocardial Infarction ([place]) Additional Family Medical History / Comment(s): ANEURYSMS, BONE CA. AGE 75 FROM ANEURYSM IN HEAD Mother Family Medical History: Congestive Heart Failure (CHF) Additional Family Medical History / Comment(s): AT AGE 84 General Exam - General Exam Comments Initial Comments: This is a well-developed asthenic appearing female who is awake alert oriented 3 Limitations: no limitations General appearance: alert, anxious, in distress Head exam: Present: atraumatic, normocephalic, normal inspection Eye exam: Present: normal appearance, PERRL, EOMI. Absent: scleral icterus, conjunctival injection, periorbital swelling ENT exam: Present: normal exam, mucous membranes moist Neck exam: Present: normal inspection, full ROM, other (No stridor JVD or bruits). Absent: tenderness, meningismus, lymphadenopathy Respiratory exam: Present: wheezes, chest wall tenderness (Tennis palpation on the left anterior lateral chest wall no definite step-off or crepitation some mild tenderness over the lateral left breast.), decreased breath sounds. Absent : respiratory distress, rales, rhonchi, stridor Cardiovascular Exam: Present: tachycardia, irregular rhythm. Absent: systolic murmur, diastolic murmur, rubs, gallop, clicks GI/Abdominal exam: Present: soft, normal bowel sounds. Absent: distended, t enderness, guarding, rebound, rigid Extremities exam: Present: normal inspection, full ROM, normal capillary refill. Absent: tenderness, pedal edema, joint swelling, calf tenderness Back exam: Present: normal inspection Neurological exam: Present: alert, oriented X3, CN II-XII intact Psychiatric exam: Present: normal affect, normal mood Skin exam: Present: warm, dry, intact, normal color. Absent: rash Course Vital Signs 05/27/19 05/27/19 05/27/19 14:38 15:08 15:10 Temperature 98.2 F Pulse Rate 152 H 158 H Respiratory 20 16 16 Rate Blood Pressure 126/112 104/83 O2 Sat by Pulse 96 95 Oximetry 05/27/19 15:50 Temperature Pulse Rate 156 H Respiratory 18 Rate Blood Pressure 106/82 O2 Sat by Pulse 99 Oximetry - Reevaluation(s) Reevaluation #1: 05/27/19 15:12 The patient later reported she did have some left-sided breast and chest discomfort. Reevaluation #2: 05/27/19 16:04 I did reevaluate the patient she'll occasion she is feeling somewhat improved her heart rate is trending downward though still in A. fib with RVR. Medical Decision Making - Lab Data Result diagrams: 05/27/19 14:53 05/27/19 14:53 Lab Results 05/27/19 05/27/19 05/27/19 Range/Units 14:53 14:53 14:53 WBC 12.3 H (3.8-10.6) k/uL RBC 4.68 (3.80-5.40) m/uL Hgb 13.9 (11.4-16.0) gm/dL Hct 44.4 (34.0-46.0) % MCV 94.9 (80.0-100.0) fL MCH 29.7 (25.0-35.0) pg MCHC 31.3 (31.0-37.0) g/dL RDW 16.5 H (11.5-15.5) % Plt Count 377 (150-450) k/uL Neutrophils % 85 % Lymphocytes % 9 % Monocytes % 5 % Eosinophils % 0 % Basophils % 0 % Neutrophils # 10.4 H (1.3-7.7) k/uL Lymphocytes # 1.1 (1.0-4.8) k/uL Monocytes # 0.6 (0-1.0) k/uL Eosinophils # 0.0 (0-0.7) k/uL Basophils # 0.0 (0-0.2) k/uL Hypochromasia Slight Anisocytosis Slight PT (9.0-12.0) sec INR (<1.2) APTT (22.0-30.0) sec Sodium 140 (137-145) mmol/L Potassium 4.7 (3.5-5.1) mmol/L Chloride 108 H (98-107) mmol/L Carbon Dioxide 28 (22-30) mmol/L Anion Gap 4 mmol/L BUN 24 H (7-17) mg/dL Creatinine 1.03 (0.52-1.04) mg/dL Est GFR (CKD-EPI)AfAm 59 (>60 ml/min/1.73 sqM) Est GFR (CKD-EPI)NonAf 51 (>60 ml/min/1.73 sqM) Glucose 120 H (74-99) mg/dL Plasma Lactic Acid Romero 2.2 H* (0.7-2.0) mmol/L Calcium 8.9 (8.4-10.2) mg/dL Magnesium 2.4 H (1.6-2.3) mg/dL Total Bilirubin 1.0 (0.2-1.3) mg/dL AST 33 (14-36) U/L ALT 22 (4-34) U/L Alkaline Phosphatase 99 (38-126) U/L Creatine Kinase 131 (30-135) U/L Troponin I (0.000-0.034) ng/mL NT-Pro-B Natriuret Pep pg/mL Total Protein 5.5 L (6.3-8.2) g/dL Albumin 3.1 L (3.5-5.0) g/dL 05/27/19 05/27/19 05/27/19 Range/Units 14:53 14:53 14:53 WBC (3.8-10.6) k/uL RBC (3.80-5.40) m/uL Hgb (11.4-16.0) gm/dL Hct (34.0-46.0) % MCV (80.0-100.0) fL MCH (25.0-35.0) pg MCHC (31.0-37.0) g/dL RDW (11.5-15.5) % Plt Count (150-450) k/uL Neutrophils % % Lymphocytes % % Monocytes % % Eosinophils % % Basophils % % Neutrophils # (1.3-7.7) k/uL Lymphocytes # (1.0-4.8) k/uL Monocytes # (0-1.0) k/uL Eosinophils # (0-0.7) k/uL Basophils # (0-0.2) k/uL Hypochromasia Anisocytosis PT 16.6 H (9.0-12.0) sec INR 1.7 H (<1.2) APTT 25.1 (22.0-30.0) sec Sodium (137-145) mmol/L Potassium (3.5-5.1) mmol/L Chloride (98-107) mmol/L Carbon Dioxide (22-30) mmol/L Anion Gap mmol/L BUN (7-17) mg/dL Creatinine (0.52-1.04) mg/dL Est GFR (CKD-EPI)AfAm (>60 ml/min/1.73 sqM) Est GFR (CKD-EPI)NonAf (>60 ml/min/1.73 sqM) Glucose (74-99) mg/dL Plasma Lactic Acid Romero (0.7-2.0) mmol/L Calcium (8.4-10.2) mg/dL Magnesium (1.6-2.3) mg/dL Total Bilirubin (0.2-1.3) mg/dL AST (14-36) U/L ALT (4-34) U/L Alkaline Phosphatase (38-126) U/L Creatine Kinase (30-135) U/L Troponin I 0.610 H* (0.000-0.034) ng/mL NT-Pro-B Natriuret Pep 3390 pg/mL Total Protein (6.3-8.2) g/dL Albumin (3.5-5.0) g/dL - EKG Data -: EKG Interpreted by Me (Atrial fibrillation with rapid ventricular response rate of 167 QRS 70 QT s) EKG Comments: Atrial fibrillation on EKG with a 167 heart rate QRS 70 daily since QTC 370/[address]-T wave configuration this is compared with an EKG dated 04/23/18 - Radiology Data Radiology results: report reviewed (I did review the imaging and report no definite fracture evidence of some increase following [place] congestion query some small effusion), image reviewed Critical Care Time Critical Care Time: Yes Critical Care Time: 39 minutes of critical care time which includes initial presentation with history physical labs x-rays discussed with paramedics upon arrival multiple reevaluation the patient response to therapy discussed with patient several family members. Review of old charting was available discussed with Dr. Barber admission orders and documentation of the above Disposition Clinical Impression: Rapid atrial fibrillation, Non-STEMI (non-ST elevated myocardial infarction), Congestive heart failure (CHF) Disposition: ADMITTED IP TO THIS HOSP Condition: Fair Referrals: None,Stated [REFERRING] - 1-2 days
[2019-05-27 15:20] LABS: INR 1.7 (<1.2); Partial Thromboplastin Time 25.1 sec (22.0-30.0); Prothrombin Time 16.6 sec (9.0-12.0)
[2019-05-27 15:26] LABS: Albumin 3.1 g/dL (3.5-5.0); Calcium 8.9 mg/dL (8.4-10.2); Magnesium 2.4 mg/dL (1.6-2.3); Potassium 4.7 mmol/L (3.5-5.1); Total Protein 5.5 g/dL (6.3-8.2)
[2019-05-27] MEDS ORDERED: FUROSEMIDE 10 MG/ML 4 ML VIAL IV STA (15:37)
--- NOTE | 2019-05-27 15:48 | XR ---
EXAMINATION TYPE: XR ribs LT DATE OF EXAM: 05/27/2019 COMPARISON: NONE HISTORY: Left sided chest pain. Trauma. TECHNIQUE: 4 views FINDINGS: There is slight blunting left costophrenic angle. There is no pleural effusion or pneumotho rax. I see no rib fracture. IMPRESSION: Mild pleural reaction left lung base. No fluid seen. No rib fracture seen.
--- NOTE | 2019-05-27 15:51 | XR ---
EXAMINATION TYPE: XR chest 2V DATE OF EXAM: 05/27/2019 COMPARISON: NONE HISTORY: Short of breath TECHNIQUE: 2 views FINDINGS: There is coarsening of the interstitial pulmonary markings. Heart size is normal. Thoracic aorta is atheromatous. There is slight blunting of the costophrenic angles. There are no hilar masses . IMPRESSION: Increased pulmonary interstitial density could relate to mild congestion and mild heart f ailure that is a change compared to old exam.
[2019-05-27] MEDS ORDERED: NITROGLYCERIN SL TABS 0.4 MG TAB SUBLINGUAL PRN (16:10)
[2019-05-27] MEDS ORDERED: WARFARIN 2 MG TAB PO SCH (16:15)
[2019-05-27] MEDS ORDERED: DILTIAZEM ORAL 30 MG TAB PO SCH (16:15)
--- NOTE | 2019-05-27 16:15 | ED ---
Medical Decision Making - Lab Data Result diagrams: 05/27/19 14:53 05/27/19 14:53 Lab Results 05/27/19 05/27/19 05/27/19 Range/Units 14:53 14:53 14:53 WBC 12.3 H (3.8-10.6) k/uL RBC 4.68 (3.80-5.40) m/uL Hgb 13.9 (11.4-16.0) gm/dL Hct 44.4 (34.0-46.0) % MCV 94.9 (80.0-100.0) fL MCH 29.7 (25.0-35.0) pg MCHC 31.3 (31.0-37.0) g/dL RDW 16.5 H (11.5-15.5) % Plt Count 377 (150-450) k/uL Neutrophils % 85 % Lymphocytes % 9 % Monocytes % 5 % Eosinophils % 0 % Basophils % 0 % Neutrophils # 10.4 H (1.3-7.7) k/uL Lymphocytes # 1.1 (1.0-4.8) k/uL Monocytes # 0.6 (0-1.0) k/uL Eosinophils # 0.0 (0-0.7) k/uL Basophils # 0.0 (0-0.2) k/uL Hypochromasia Slight Anisocytosis Slight PT (9.0-12.0) sec INR (<1.2) APTT (22.0-30.0) sec Sodium 140 (137-145) mmol/L Potassium 4.7 (3.5-5.1) mmol/L Chloride 108 H (98-107) mmol/L Carbon Dioxide 28 (22-30) mmol/L Anion Gap 4 mmol/L BUN 24 H (7-17) mg/dL Creatinine 1.03 (0.52-1.04) mg/dL Est GFR (CKD-EPI)AfAm 59 (>60 ml/min/1.73 sqM) Est GFR (CKD-EPI)NonAf 51 (>60 ml/min/1.73 sqM) Glucose 120 H (74-99) mg/dL Plasma Lactic Acid Romero 2.2 H* (0.7-2.0) mmol/L Calcium 8.9 (8.4-10.2) mg/dL Magnesium 2.4 H (1.6-2.3) mg/dL Total Bilirubin 1.0 (0.2-1.3) mg/dL AST 33 (14-36) U/L ALT 22 (4-34) U/L Alkaline Phosphatase 99 (38-126) U/L Creatine Kinase 131 (30-135) U/L Troponin I (0.000-0.034) ng/mL NT-Pro-B Natriuret Pep pg/mL Total Protein 5.5 L (6.3-8.2) g/dL Albumin 3.1 L (3.5-5.0) g/dL 05/27/19 05/27/19 05/27/19 Range/Units 14:53 14:53 14:53 WBC (3.8-10.6) k/uL RBC (3.80-5.40) m/uL Hgb (11.4-16.0) gm/dL Hct (34.0-46.0) % MCV (80.0-100.0) fL MCH (25.0-35.0) pg MCHC (31.0-37.0) g/dL RDW (11.5-15.5) % Plt Count (150-450) k/uL Neutrophils % % Lymphocytes % % Monocytes % % Eosinophils % % Basophils % % Neutrophils # (1.3-7.7) k/uL Lymphocytes # (1.0-4.8) k/uL Monocytes # (0-1.0) k/uL Eosinophils # (0-0.7) k/uL Basophils # (0-0.2) k/uL Hypochromasia Anisocytosis PT 16.6 H (9.0-12.0) sec INR 1.7 H (<1.2) APTT 25.1 (22.0-30.0) sec Sodium (137-145) mmol/L Potassium (3.5-5.1) mmol/L Chloride (98-107) mmol/L Carbon Dioxide (22-30) mmol/L Anion Gap mmol/L BUN (7-17) mg/dL Creatinine (0.52-1.04) mg/dL Est GFR (CKD-EPI)AfAm (>60 ml/min/1.73 sqM) Est GFR (CKD-EPI)NonAf (>60 ml/min/1.73 sqM) Glucose (74-99) mg/dL Plasma Lactic Acid Romero (0.7-2.0) mmol/L Calcium (8.4-10.2) mg/dL Magnesium (1.6-2.3) mg/dL Total Bilirubin (0.2-1.3) mg/dL AST (14-36) U/L ALT (4-34) U/L Alkaline Phosphatase (38-126) U/L Creatine Kinase (30-135) U/L Troponin I 0.610 H* (0.000-0.034) ng/mL NT-Pro-B Natriuret Pep 3390 pg/mL Total Protein (6.3-8.2) g/dL Albumin (3.5-5.0) g/dL Disposition Clinical Impression: Rapid atrial fibrillation, Non-STEMI (non-ST elevated myocardial infarction), Congestive heart failure (CHF), COPD with exacerbation Disposition: ADMITTED IP TO THIS HOSP Condition: Fair Referrals: None,Stated [REFERRING] - 1-2 days
[2019-05-27] MEDS ORDERED: HEPARIN SODIUM,PORCINE 5,000 UNIT/ML 1 ML VIAL IV PRN (16:21)
[2019-05-27] MEDS ORDERED: HEPARIN SODIUM,PORCINE 5,000 UNIT/ML 1 ML VIAL IV ONE (16:21)
[2019-05-27] MEDS: HEPARIN SOD,PORK IN 0.45% NACL 25,000 UNIT in 0.45% NACL 1 250ML.BAG IV SCH (16:59)
[2019-05-27] MEDS: IPRATROPIUM-ALBUTEROL 3 ML NEB INHALATION SCH ×2 (19:42→23:42)
[2019-05-27] MEDS: BUDESONIDE 0.5 MG/2 ML NEBU INHALATION SCH (19:42)
--- NOTE | 2019-05-27 19:42 | P.HPIM ---
History of Present Illness H&P Date: 05/27/19 (SOB, palpitation with the atrial fib RVR.) Chief Complaint: She fell at home with abrasion in the left elbow show good breath palpitati Dictation on the history and physical date of service 05/27/2019. Dictation by Dr. Barber. Chief complaint patient presented to the emergency room by EMS with the shortness of breath and palpitation. History of present illness: Patient wake up in the morning with the underlying not feeling well, went to the bathroom and she fell down with a abrasion of the elbow try to get up her body can Eliseo up her called the EMS and they brought her to the emergency room at [place] but clear and ER. Patient subsequently evaluated by Dr. Valle and found that she had atrial fibrillation with rapid ventricular response, shortness of breath with hypoxemia, patient admitted to court monitor floor with consultation to pulmonary and critical care her pulmonary doctor is Dr. Childress. Also consultation with the cardiology with the chief librarian work with blind as outpatient is Dr. Rendon chief librarian work with blind. Patient placed on cardiac exam drip with the small rate of IV 20 mL an hour. Until patient evaluated with the court monitor. Also patient is on inhalation therapy for bronchodilator and IV steroids with the assumed underlying acute exacerbation of COPD. Medication list: She is on Neurontin 100 mg twice a day, she is on Lasix 40 mg twice a day orally and she was on warfarin/Coumadin 1 mg at at bedtime except Wednesday. Patient currently on heparin protocol until evaluated by the chief librarian work with blind. She is on Pulmicort 0.5 mg inhalation twice a day as well as diltiazem 30 mg every 8 hours next is docusate Colace she take 200 mg twice a day. She is also on Vytorin 1010 milligrams at bedtime, she is on Nebulizers at home 4 times a day as needed. Ativan 0.5 mg twice a day. Metoprolol tartrate 25 mg twice a day and she is on prednisone 40 mg once daily. She has no known ALLERGY. Family history: She is if with her . Past medical history #1 atrial fibrillation #2 history of chest pain and angina and COPD history of TIA and CVA history of hypertension and the pneumonia in the past. She has urinary incontinence abdominal hernia diverticulitis in the past. She had a surgical history she has adenoidectomy, appendectomy, breast surgery, cardiac catheterization, hysterectomy, and tonsillectomy. She had a cataract and lens implant cystocele/rectocele and hole in the bowel has been repaired by just a history breast biopsy was negative and she had a 4 cm abdominal aortic aneurysm. She is ex-smoker over former smoker. Alcohol intake and no drug use. Family history of cancer myocardial infarction aneurysm bone cancer mother heart failure with congestive heart failure and of age of 84. Review of system: #1 neuropsychiatry she has a history of a need physiatry. #2 cardiovascular palpitation and racing of the heart at home called the ambulance to bring her to the hospital. #3 shortness of breath which she was progressive. GI no diarrhea or constipation or abdominal pain no dysuria or hematuria but there is incontinent. The rest of review of system. NONCONTRIBUTORY On the physical exam: Patient is conscious alert oriented 3. HEENT: Head was normocephalic atraumatic pupil was equal reactive conjunctiva was pink sclera nonicteric extraocular muscle movement is intact. Hearing is intact, nose no rhinitis, oropharynx is normal Neck was supple no JVD no thyromegaly no lymphadenopathy trachea midline. Chest: Inspiratory expiratory wheezes with increased anteroposterior diameter and history of COPD with exacerbation. Heart atrial fibrillation with RVR,irregular heartbeat and on admission her heart rate 1 67/m patient placed on cardiac exam in the ER with the cardiology consult. Abdomen soft positive bowel sounds no tenderness in the four-quadrant no palpable organ. Extremities no edema positive pulses. Neurologically: No lateralizing sign no facial symmetry. Objective vital signs on admission temperature 98.2 F oral, heart rate 168 and in the EKG was with 67 and regular, respiratory rate 22 with a short of breath and labored. Blood pressure ranging between 104/83-110/70 her pulse ox was 95 and now is 91 with stimulator nasal cannula with history of chronic respiratory failure with acute on top of chronic and she is on oxygen continuously at home 2 L/m Laboratory: Her WBC was 12.3 with a hemoglobin 13.9 and hematocrit 44.4 and the platelet count 377. Pro-time was 16.6 and INR 1.7, PTT 25.1 which is supple therapeutic Chemistry : Sodium 140, potassium 4.7, chloride 108, carbon dioxide 28, anion gap 4, BUN 24, creatinine 1.03 EGFR 51, blood sugar 120 Lactic acid venous 2.2 which is elevated calcium 8.9, magnesium 2.4 and normal liver function test AST 73 a LT 22 alk phos 99, and CK 131. Troponin 1 was 0.610 with the presence of atrial fibrillation , pro-BMP elevated with 3390 her albumin 3.1 and protein 5.5. Negative for influenza a and B PCR Assessment: Palpitation associated with heart rate 164 with atrial fibrillation and rapid ventricular response. Shortness of breath, lactic acidosis, with troponin 1 is elevated 0.610. Acute exacerbation of COPD Patient on chronic respiratory failure with acute exacerbation and she is on permanently oxygen 2 L/m. Chronic kidney disease stage III. Patient placed on bronchodilator, currently on diltiazem drip, consultation with pulmonary Dr. Childress and consultation with cardiology doctor some. And we'll start her because of the leukocytosis on the Rocephin and obtain urine analysis with reflux for college and continue inhalation nebulizers and the steroid therapy IV. Insulin to scale cover with NovoLog insulin to scale before meals meal and bedtime. 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, URINARY INCONTINENCE, ABD HERNIA,DIVERTICULITIS History of Any Multi-Drug Resistant Organisms: None Reported Past Surgical History: Adenoidectomy, Appendectomy, Breast Surgery, Heart Catheterization, Hysterectomy, Tonsillectomy Additional Past Surgical History / Comment(s): CATARACTS-LENS IMPLANTS, CYSTOCELE/RECTOCELE AND HOLE IN BOWEL REPAIRED, LT HAND THUMB SX, BREAST BIOPSY- NEG, 4 cm AAA, L little toe bone removed, hammer toe surgery Past Anesthesia/Blood Transfusion Reactions: No Reported Reaction Past Psychological History: Anxiety Additional Psychological History / Comment(s): related to procedure Smoking Status: Former smoker Past Alcohol Use History: None Reported Additional Past Alcohol Use History / Comment(s): 1/2 PPD Past Drug Use History: None Reported - Past Family History Father Family Medical History: Cancer, Myocardial Infarction ([place]) Additional Family Medical History / Comment(s): ANEURYSMS, BONE CA. AGE 75 FROM ANEURYSM IN HEAD Mother Family Medical History: Congestive Heart Failure (CHF) Additional Family Medical History / Comment(s): AT AGE 84 Medications and Allergies Home Medications Medication Instructions Recorded Confirmed Type Gabapentin [Neurontin] 100 mg PO BID 11/14/15 05/27/19 History Furosemide [Lasix] 40 mg PO BID 03/22/16 05/27/19 History Warfarin Sodium [Coumadin] 1 mg PO MOTUWETHFRSA 08/15/16 05/27/19 History Acetaminophen Tab [Tylenol] 650 mg PO Q4H PRN 05/27/19 05/27/19 History Albuterol Nebulized [Ventolin 2.5 mg INHALATION RT-QID PRN 05/27/19 05/27/19 History Nebulized] Albuterol Sulfate [Ventolin HFA] 2 puff INHALATION RT-QID PRN 05/27/19 05/27/19 History Allopurinol [Zyloprim] 100 mg PO DAILY 05/27/19 05/27/19 History Budesonide [Pulmicort] 0.5 mg INHALATION RT-BID 05/27/19 05/27/19 History Budesonide/Formoterol Fumarate 2 puff INHALATION RT-BID 05/27/19 05/27/19 History [Symbicort 80-4.5 Mcg Inhaler] Diltiazem HCl 30 mg PO Q8H 05/27/19 05/27/19 History Docusate [Colace] 200 mg PO BID 05/27/19 05/27/19 History Ezetimibe/Simvastatin [Vytorin 1 tab PO HS 05/27/19 05/27/19 History 10-10 mg] Ipratropium-Albuterol Nebulize 3 ml INHALATION RT-QID PRN 05/27/19 05/27/19 History [Duoneb 0.5 mg-3 mg/3 ml Soln] LORazepam [Ativan] 0.5 mg PO BID 05/27/19 05/27/19 History Metoprolol Tartrate [Lopressor] 25 mg PO BID 05/27/19 05/27/19 History predniSONE [Deltasone] 40 mg PO DAILY 05/27/19 05/27/19 History Allergies Allergy/AdvReac Type Severity Reaction Status Date / Time No Known Allergies Allergy Verified 05/27/19 15:37 Physical Exam Vitals: Vital Signs Temp Pulse Pulse Resp BP BP Pulse Ox 05/27/19 18:11 120 H 22 05/27/19 17:11 98.2 F 120 H 18 122/82 91 L 05/27/19 17:03 105 H 18 110/70 97 05/27/19 15:50 156 H 18 106/82 99 05/27/19 15:10 158 H 16 104/83 95 05/27/19 15:08 16 05/27/19 14:38 98.2 F 152 H 20 126/112 96 Intake and Output 05/27/19 05/27/19 05/27/19 06:59 14:59 22:59 Intake Total 3.333 Balance 3.333 Intake: Intake, IV Titration 3.333 Amount Diltiazem 125 mg In 3.333 Sodium Chloride 0.9% 100 ml @ 5 MG/HR 5 mls/hr IV .Q24H [facility] Rx#:[id number] Other: Voiding Method Bedside Commode # Voids 1 Weight 72.575 kg 72.575 kg Results CBC & Chem 7: 05/27/19 14:53 05/27/19 14:53 Labs: Abnormal Lab Results - Last 24 Hours (Table) 05/27/19 05/27/19 05/27/19 Range/Units 14:53 14:53 14:53 WBC 12.3 H (3.8-10.6) k/uL RDW 16.5 H (11.5-15.5) % Neutrophils # 10.4 H (1.3-7.7) k/uL PT (9.0-12.0) sec INR (<1.2) Chloride 108 H (98-107) mmol/L BUN 24 H (7-17) mg/dL Glucose 120 H (74-99) mg/dL Plasma Lactic Acid Romero 2.2 H* (0.7-2.0) mmol/L Magnesium 2.4 H (1.6-2.3) mg/dL Troponin I (0.000-0.034) ng/mL Total Protein 5.5 L (6.3-8.2) g/dL Albumin 3.1 L (3.5-5.0) g/dL 05/27/19 05/27/19 Range/Units 14:53 14:53 WBC (3.8-10.6) k/uL RDW (11.5-15.5) % Neutrophils # (1.3-7.7) k/uL PT 16.6 H (9.0-12.0) sec INR 1.7 H (<1.2) Chloride (98-107) mmol/L BUN (7-17) mg/dL Glucose (74-99) mg/dL Plasma Lactic Acid Romero (0.7-2.0) mmol/L Magnesium (1.6-2.3) mg/dL Troponin I 0.610 H* (0.000-0.034) ng/mL Total Protein (6.3-8.2) g/dL Albumin (3.5-5.0) g/dL Thrombosis Risk Factor Assmnt - Choose All That Apply Any of the Below Risk Factors Present?: Yes Each Factor Represents 1 point: Abnormal pulmonary function (COPD), Acute [place], Obesity (BMI >25) Each Risk Factor Represents 3 Points: History of DVT/PE Thrombosis Risk Factor Assessment Total Risk Factor Score: 6 Thrombosis Risk Factor Assessment Level: High Risk
[2019-05-27] MEDS: LORazepam 0.5 MG TAB PO SCH (20:18)
[2019-05-27] MEDS: METOPROLOL TARTRATE 25 MG TAB PO SCH (20:18)
[2019-05-27] MEDS: GABAPENTIN 100 MG CAP PO SCH (20:18)
[2019-05-27] MEDS: ATORVASTATIN 10 MG TAB PO SCH (20:18)
[2019-05-27] MEDS: FUROSEMIDE 40 MG TAB PO SCH (20:18)
[2019-05-27] MEDS: DOCUSATE 100 MG CAP PO SCH (20:18)
[2019-05-27] MEDS: methylPREDNISolone SOD SUCCI 125 MG/2 ML VIAL IV SCH ×2 (20:19→22:51)
[2019-05-27] MEDS: SODIUM CHLORIDE 0.9% 1,000 ML IV SCH (20:20)
[2019-05-27 20:37] LABS: Glucose,Whole Blood 298 mg/dL (75-99)
[2019-05-27] MEDS: INSULIN ASPART (NovoLOG) 100 UNIT/ML VIAL SQ SCH (20:38)
[2019-05-27] MEDS ORDERED: INSULIN ASPART (NovoLOG) 100 UNIT/ML VIAL SQ SCH (21:00)
[2019-05-27] MEDS: EZETIMIBE 10 MG TAB PO SCH (21:24)
[2019-05-27] MEDS: ACETAMINOPHEN TAB 325 MG TAB PO PRN (22:24)
[2019-05-28] MEDS: IPRATROPIUM-ALBUTEROL 3 ML NEB INHALATION SCH ×5 (03:45→20:46)
[2019-05-28 06:24] LABS: Anisocytosis Slight; Basophils % (A) 0 %; Eosinophils % (A) 0 %; HCT 43.6 % (34.0-46.0); HGB 13.2 gm/dL (11.4-16.0); Hypochromasia Slight; Lymphocytes % (A) 11 %; MCH 28.6 pg (25.0-35.0); MCHC 30.2 g/dL (31.0-37.0); MCV 94.9 fL (80.0-100.0); Mean Platelet Volume 7.4; Monocytes # (A) 0.1 k/uL (0-1.0); Monocytes % (A) 2 %; Neutrophils # (A) 8.1 k/uL (1.3-7.7); Neutrophils % (A) 87 %; Platelet Count 351 k/uL (150-450); RDW 16.4 % (11.5-15.5); WBC 9.2 k/uL (3.8-10.6)
[2019-05-28 06:26] LABS: Glucose,Whole Blood 152 mg/dL (75-99)
[2019-05-28] MEDS: INSULIN ASPART (NovoLOG) 100 UNIT/ML VIAL SQ SCH ×4 (06:36→20:43)
[2019-05-28] MEDS: methylPREDNISolone SOD SUCCI 125 MG/2 ML VIAL IV SCH ×2 (06:37→11:55)
[2019-05-28 06:47] LABS: Calcium 8.7 mg/dL (8.4-10.2); Potassium 4.1 mmol/L (3.5-5.1)
[2019-05-28] MEDS: BUDESONIDE 0.5 MG/2 ML NEBU INHALATION SCH ×2 (07:57→20:46)
[2019-05-28] MEDS: DOCUSATE 100 MG CAP PO SCH ×2 (08:12→20:53)
[2019-05-28] MEDS: GABAPENTIN 100 MG CAP PO SCH ×2 (08:12→20:53)
[2019-05-28] MEDS: FUROSEMIDE 40 MG TAB PO SCH (08:12)
[2019-05-28] MEDS: ALLOPURINOL 100 MG TAB PO SCH (08:12)
[2019-05-28] MEDS: METOPROLOL TARTRATE 25 MG TAB PO SCH (08:13)
[2019-05-28] MEDS: LORazepam 0.5 MG TAB PO SCH ×2 (08:13→20:53)
[2019-05-28] MEDS ORDERED: predniSONE 20 MG TAB PO SCH (09:00)
[2019-05-28] MEDS ORDERED: ASPIRIN 325 MG TAB PO SCH (09:00)
--- NOTE | 2019-05-28 09:55 | P.CRDCN ---
History of Present Illness Consult date: 05/28/19 Requesting physician: Henrique Barber Consult reason: atrial fibrillation Chief complaint: Fall History of present illness: This is a pleasant 83-year-old female with past medical history c onsistent for persistent atrial fibrillation, COPD, prior CVA, hyperlipidemia, hypertension, who presented to the hospital after experiencing a fall. According to the family members at the bedside, patient has been experiencing multiple falls. Patient has been extremely weak at home the past few weeks. On this occasion she again had a fall. According the patient, she states that she was getting up to go to the bathroom, got quite dizzy and fell. Chest x-ray shows mild pleural reaction at the left lung base no rib fracture. Chest x-ray shows increased pulmonary interstitial density could relate to mild congestion and mild congestive heart failure. EKG shows atrial fibrillation with rapid ventricular response, nonspecific ST-T wave changes. Blood pressure 104/60 with a heart rate in the 80s, 98% on 4 L of oxygen. White blood cell count on admission 12.3, 9.2 this morning, hemoglobin 13.2, platelet count 351. Sodium 139, potassium 4.1, BUN 27, creatinine 1.0. Plasma lactic acid elevated at 4.7, magnesium 2.4. Troponin 0.61, 0.41, 0.5. BNP level 3390. Influenza A and B-. At the time of my examination this morning the patient is sitting up at bedside, continues to feel extremely weak. Denies any dizziness or lightheadedness, no chest discomfort. Breathing overall is stable. 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, URINARY INCONTINENCE, ABD HERNIA,DIVERTICULITIS History of Any Multi-Drug Resistant Organisms: None Reported Past Surgical History: Adenoidectomy, Appendectomy, Breast Surgery, Heart Catheterization, Hysterectomy, Tonsillectomy Additional Past Surgical History / Comment(s): CATARACTS-LENS IMPLANTS, CYS TOCELE/RECTOCELE AND HOLE IN BOWEL REPAIRED, LT HAND THUMB SX, BREAST BIOPSY- NEG, 4 cm AAA, L little toe bone removed, hammer toe surgery Past Anesthesia/Blood Transfusion Reactions: No Reported Reaction Past Psychological History: Anxiety Additional Psychological History / Comment(s): related to procedure Smoking Status: Former smoker Past Alcohol Use History: None Reported Additional Past Alcohol Use History / Comment(s): 1/2 PPD Past Drug Use History: None Reported - Past Family History Father Family Medical History: Cancer, Myocardial Infarction ([place]) Additional Family Medical History / Comment(s): ANEURYSMS, BONE CA. AGE 75 FROM ANEURYSM IN HEAD Mother Family Medical History: Congestive Heart Failure (CHF) Additional Family Medical History / Comment(s): AT AGE 84 Medications and Allergies Home Medications Medication Instructions Recorded Confirmed Type Gabapentin [Neurontin] 100 mg PO BID 11/14/15 05/27/19 History Furosemide [Lasix] 40 mg PO BID 03/22/16 05/27/19 History Warfarin Sodium [Coumadin] 1 mg PO MOTUWETHFRSA 08/15/16 05/27/19 History Acetaminophen Tab [Tylenol] 650 mg PO Q4H PRN 05/27/19 05/27/19 History Albuterol Nebulized [Ventolin 2.5 mg INHALATION RT-QID PRN 05/27/19 05/27/19 History Nebulized] Albuterol Sulfate [Ventolin HFA] 2 puff INHALATION RT-QID PRN 05/27/19 05/27/19 History Allopurinol [Zyloprim] 100 mg PO DAILY 05/27/19 05/27/19 History Budesonide [Pulmicort] 0.5 mg INHALATION RT-BID 05/27/19 05/27/19 History Budesonide/Formoterol Fumarate 2 puff INHALATION RT-BID 05/27/19 05/27/19 History [Symbicort 80-4.5 Mcg Inhaler] Diltiazem HCl 30 mg PO Q8H 05/27/19 05/27/19 History Docusate [Colace] 200 mg PO BID 05/27/19 05/27/19 History Ezetimibe/Simvastatin [Vytorin 1 tab PO HS 05/27/19 05/27/19 History 10-10 mg] Ipratropium-Albuterol Nebulize 3 ml INHALATION RT-QID PRN 05/27/19 05/27/19 History [Duoneb 0.5 mg-3 mg/3 ml Soln] LORazepam [Ativan] 0.5 mg PO BID 05/27/19 05/27/19 History Metoprolol Tartrate [Lopressor] 25 mg PO BID 05/27/19 05/27/19 History predniSONE [Deltasone] 40 mg PO DAILY 05/27/19 05/27/19 History Allergies Allergy/AdvReac Type Severity Reaction Status Date / Time No Known Allergies Allergy Verified 05/27/19 15:37 Physical Exam Vitals: Vital Signs Temp Pulse Pulse Resp BP BP Pulse Ox 05/28/19 08:11 84 05/28/19 08:00 97.8 F 85 18 103/66 98 05/28/19 07:57 80 05/28/19 06:15 116/95 05/28/19 04:00 98 F 79 20 91/56 95 05/28/19 00:00 98 F 100 19 110/72 98 05/27/19 23:50 96 05/27/19 23:42 96 05/27/19 20:00 97.6 F 106 H 19 99/63 94 L 05/27/19 19:54 116 H 05/27/19 19:44 119 H 90 L 05/27/19 18:11 120 H 22 05/27/19 17:11 98.2 F 120 H 18 122/82 91 L 05/27/19 17:03 105 H 18 110/70 97 05/27/19 15:50 156 H 18 106/82 99 05/27/19 15:10 158 H 16 104/83 95 05/27/19 15:08 16 05/27/19 14:38 98.2 F 152 H 20 126/112 96 Intake and Output 05/27/19 05/28/19 05/28/19 22:59 06:59 14:59 Intake Total 3.333 58.495 Output Total 300 Balance 3.333 -241.505 Intake: Intake, IV Titration 3.333 58.495 Amount Diltiazem 125 mg In 3.333 Sodium Chloride 0.9% 100 ml @ 5 MG/HR 5 mls/hr IV .Q24H [facility] Rx#:[id number] Heparin Sod,Pork in 0.45% 58.495 NaCl 25,000 unit In 0.45 % NaCl 1 250ml.bag @ 12 UNITS/KG/HR 8.709 mls/hr IV .Q24H [facility] Rx#: [id number] Output: Urine 300 Other: Voiding Method Bedside Commode Bedside Commode # Voids 1 1 # Bowel Movements 1 Weight 72.575 kg 71.9 kg PHYSICAL EXAMINATION: GENERAL: 82-year-old female in no acute distress at the time of my examination HEENT: Head is atraumatic, normocephalic. Pupils equal, round. Sclera anicteric. Conjunctiva are clear. Mucous membranes of the mouth are moist. Neck is supple. There is no elevated jugular venous pressure. No carotid bruit is heard. HEART EXAMINATION: Heart S1 and S2 irregularly irregular a systolic murmur is heard CHEST EXAMINATION: Lungs reveal coarse wheezing and rhonchi throughout ABDOMEN: Soft, nontender. Bowel sounds are heard. No organomegaly noted. EXTREMITIES: 2+ peripheral pulses with no evidence of peripheral edema and no calf tenderness noted. NEUROLOGIC patient is awake, alert and oriented 3 Results 05/28/19 05:56 05/28/19 05:56 Cardiac Enzymes 05/27/19 05/27/19 05/27/19 Range/Units 14:53 14:53 21:11 AST 33 (14-36) U/L Troponin I 0.610 H* 0.414 H* (0.000-0.034) ng/mL 05/28/19 Range/Units 02:48 AST (14-36) U/L Troponin I 0.357 H* (0.000-0.034) ng/mL Coagulation 05/27/19 05/27/19 05/28/19 Range/Units 14:53 23:08 05:56 PT 16.6 H (9.0-12.0) sec APTT 25.1 34.2 H 45.0 H (22.0-30.0) sec Lipids 05/28/19 Range/Units 05:56 Triglycerides 61 (<150) mg/dL Cholesterol 90 (<200) mg/dL HDL Cholesterol 41 (40-60) mg/dL CBC 05/27/19 05/28/19 Range/Units 14:53 05:56 WBC 12.3 H 9.2 (3.8-10.6) k/uL RBC 4.68 4.60 (3.80-5.40) m/uL Hgb 13.9 13.2 (11.4-16.0) gm/dL Hct 44.4 43.6 (34.0-46.0) % Plt Count 377 351 (150-450) k/uL Comprehensive Metabolic Panel 05/27/19 05/28/19 Range/Units 14:53 05:56 Sodium 140 139 (137-145) mmol/L Potassium 4.7 4.1 (3.5-5.1) mmol/L Chloride 108 H 107 (98-107) mmol/L Carbon Dioxide 28 24 (22-30) mmol/L BUN 24 H 27 H (7-17) mg/dL Creatinine 1.03 1.04 (0.52-1.04) mg/dL Glucose 120 H 119 H (74-99) mg/dL Calcium 8.9 8.7 (8.4-10.2) mg/dL AST 33 (14-36) U/L ALT 22 (4-34) U/L Alkaline Phosphatase 99 (38-126) U/L Total Protein 5.5 L (6.3-8.2) g/dL Albumin 3.1 L (3.5-5.0) g/dL Current Medications Generic Name Dose Route Start Last Admin Trade Name Freq PRN Reason Stop Dose Admin Acetaminophen 650 mg 05/27/19 16:13 05/27/19 22:24 Tylenol Tab PO 650 mg Q4H PRN Administration Pain Albuterol/Ipratropium 3 ml 05/27/19 20:00 05/28/19 07:57 Duoneb 0.5 Mg-3 Mg/3 Ml Soln INHALATION 3 ml Q4HR [facility] Administration Allopurinol 100 mg 05/28/19 09:00 05/28/19 08:12 Zyloprim PO 100 mg DAILY [facility] Administration Aspirin 325 mg 05/28/19 09:00 05/28/19 08:12 Aspirin PO 325 mg DAILY [facility] Administration Atorvastatin Calcium 10 mg 05/27/19 21:00 05/27/19 20:18 Lipitor PO 10 mg HS [facility] Administration Budesonide 0.5 mg 05/27/19 20:00 05/28/19 07:57 Pulmicort INHALATION 0.5 mg RT-BID [facility] Administration Docusate Sodium 200 mg 05/27/19 21:00 05/28/19 08:12 Colace PO Not Given BID [facility] Ezetimibe 10 mg 05/27/19 21:00 05/27/19 21:24 Zetia PO 10 mg HS [facility] Administration Furosemide 40 mg 05/27/19 21:00 05/28/19 08:12 Lasix PO 40 mg BID [facility] Administration Gabapentin 100 mg 05/27/19 21:00 05/28/19 08:12 Neurontin PO 100 mg BID [facility] Administration Heparin Sodium (Porcine) 0 unit 05/27/19 16:21 Heparin IV PER PROTOCOL PRN Low PTT Protocol Sodium Chloride 1,000 mls @ 20 mls/hr 05/27/19 14:40 05/27/19 15:07 Saline 0.9% IV 05/28/19 14:39 20 mls/hr .Q24H [facility] Administration Diltiazem HCl 125 mg/ Sodium 125 mls @ 5 mls/hr 05/27/19 15:00 05/27/19 15:51 Chloride IV 10 mg/hr .Q24H [facility] 10 mls/hr Infusion 5 MG/HR Heparin Sodium/Sodium Chloride 250 mls @ 8.709 mls/hr 05/27/19 16:30 05/27/19 23:42 25,000 unit/ Sodium Chloride IV 15 units/kg/hr .Q24H [facility] 10.886 mls/hr Titration Protocol 12 UNITS/KG/HR Ceftriaxone Sodium 1 gm/ 50 mls @ 100 mls/hr 05/27/19 21:00 05/28/19 08:21 Sodium Chloride IVPB 100 mls/hr Q12HR [facility] Administration Sodium Chloride 1,000 mls @ 75 mls/hr 05/27/19 19:45 05/27/19 20:20 Saline 0.9% IV 75 mls/hr .[id number] [facility] Administration Insulin Aspart 0 unit 05/27/19 21:00 05/28/19 06:36 Novolog SQ Not Given ACHS [facility] Protocol Lorazepam 0.5 mg 05/27/19 21:00 05/28/19 08:13 Ativan PO Not Given BID [facility] Methylprednisolone Sodium Succinate 60 mg 05/27/19 19:00 05/28/19 06:37 Solu-Medrol IV 60 mg Q6HR [facility] Administration Metoprolol Tartrate 25 mg 05/27/19 21:00 05/28/19 08:13 Lopressor PO 25 mg BID [facility] Administration Nitroglycerin 0.4 mg 05/27/19 16:10 Nitrostat SUBLINGUAL Q5M PRN Chest Pain Intake and Output 05/27/19 05/28/19 05/28/19 22:59 06:59 14:59 Intake Total 3.333 58.495 Output Total 300 Balance 3.333 -241.505 Intake: Intake, IV Titration 3.333 58.495 Amount Diltiazem 125 mg In 3.333 Sodium Chloride 0.9% 100 ml @ 5 MG/HR 5 mls/hr IV .Q24H [facility] Rx#:[id number] Heparin Sod,Pork in 0.45% 58.495 NaCl 25,000 unit In 0.45 % NaCl 1 250ml.bag @ 12 UNITS/KG/HR 8.709 mls/hr IV .Q24H [facility] Rx#: [id number] Output: Urine 300 Other: Voiding Method Bedside Commode Bedside Commode # Voids 1 1 # Bowel Movements 1 Weight 72.575 kg 71.9 kg 05/28/19 05:56 05/28/19 05:56 EKG Interpretations (text) EKG on presentation here shows atrial fibrillation with a rapid ventricular response, nonspecific ST-T wave changes. Assessment and Plan Plan: Assessment and plan #1 dizziness with subsequent fall. Patient has been having multiple falls recently #2 atrial fibrillation with rapid ventricular response, chronic persistent #3 acute on chronic kidney disease #4 elevated lactic acid #5 abnormal troponins, could be secondary to A. fib with RVR and possible sepsis #6 hypertension #7 COPD Plan Patient had an echocardiogram with Doppler study performed a year ago, it revealed a normal left ventricular systolic function, moderate to severe mitral regurgitation with mild to moderate tricuspid regurg. Severely dilated left atrium. we will repeat an echo on this admission. Discontinue IV Cardizem, decrease aspirin 81 mg daily, continue IV heparin, continue Coumadin to maintain an INR in the range of 2-2.5. Check a urinalysis. Increase beta jerad dose to maintain adequate heart rate control. Check a TSH level. Further recommendations to follow. DNP note has been reviewed, I agree with a documented findings and plan of care. Patient was seen and examined.
[2019-05-28] MEDS ORDERED: METOPROLOL TARTRATE 25 MG TAB PO STA (11:08)
[2019-05-28 11:34] LABS: Glucose,Whole Blood 321 mg/dL (75-99)
[2019-05-28] MEDS: SODIUM CHLORIDE 0.9% 1,000 ML IV SCH ×2 (11:56→23:50)
--- NOTE | 2019-05-28 13:17 | P.CNPUL ---
History of Present Illness Consult date: 05/28/19 Reason for consult: dyspnea History of present illness: 83-year-old female patient who was recently hospitalized at [facility] came in for worsening shortness of breath and cough and chest tightness and wheezing. The patient is known to us. She has multiple medical problems and comorbidities. Despite her history of COPD, she has an FEV1 of 80% of predicted and she has home oxygen that was given to her after her most recent hospitalization at [facility]. She also has nebulizers at home. 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 She has had previous cardiac catheterization the results of which are not available to me at this point in time. She has a 4 cm abdominal aortic aneurysm. The patient has had a repeat echocardiogram at [facility] that did emphasize on the mitral regurgitation. There was moderate to severe pulmonary hypertension with a PA pressure of 50-55 mmHg. There is severe TR, and by atrial enlargement. During this current admission, troponin is leaking. She has a proBNP level is elevated. White cell count is at 12.3. Creatinine is stable at 1.03 and the rest of the electrodes are all within normal limits. No major swelling in lower extremities. Chest x-ray shows some increased pulmonary vascular congestion and increased pulmonary vascular markings. INR was subtherapeutic and the patient was started on IV heparin. The influenza screen was negative. Review of Systems Constitutional: Reports weakness Eyes: bilateral blurred vision, denies as per HPI, denies bulging eye, denies decreased vision, denies diplopia, denies discharge, denies dry eye, denies irritation, denies itching, denies pain, denies photophobia, denies loss of peripheral vision, denies loss of vision, denies tunnel vision/blind spots Ears: bilateral: decreased hearing Ears, nose, mouth and throat: Reports as per HPI Cardiovascular: Reports decreased exercise tolerance, Reports dyspnea on exertion, Reports irregular heart beat, Reports palpitations Respiratory: Reports dyspnea, Reports wheezing Gastrointestinal: Reports as per HPI Genitourinary: Reports as per HPI Menstruation: Reports as per HPI Musculoskeletal: Reports as per HPI Musculoskeletal: absent: ankle pain, ankle stiffness, ankle swelling Integumentary: Reports as per HPI Neurological: Reports as per HPI, Reports weakness Psychiatric: Reports as per HPI Endocrine: Reports as per HPI Hematologic/Lymphatic: Reports as per HPI Allergic/Immunologic: Reports as per HPI Past Medical History Past Medical History: Atrial Fibrillation, Chest Pain / Angina, Heart Failure, COPD, CVA/TIA, Hyperlipidemia, Hypertension, Pneumonia, Renal Disease Additional Past Medical History / Comment(s): COPD, severe MR, severe TR, moderate to severe pulmonary hypertension, chronic atrial fibrillation, hypertension, hyperlipidemia, history of hypercoagulability and and the patient has been maintained on anticoagulation with warfarin, abdominal hernia, diverticulosis and previous history of diverticulitis, history of urinary incontinence, hypertension, history of CVA History of Any Multi-Drug Resistant Organisms: None Reported Past Surgical History: Adenoidectomy, Appendectomy, Breast Surgery, Heart Catheterization, Hysterectomy, Tonsillectomy Additional Past Surgical History / Comment(s): CATARACTS-LENS IMPLANTS, CYSTOCELE/RECTOCELE AND HOLE IN BOWEL REPAIRED, LT HAND THUMB SX, BREAST BIOPSY- NEG, 4 cm AAA, L little toe bone removed, hammer toe surgery Past Anesthesia/Blood Transfusion Reactions: No Reported Reaction Past Psychological History: Anxiety Additional Psychological History / Comment(s): related to procedure Smoking Status: Former smoker Past Alcohol Use History: None Reported Additional Past Alcohol Use History / Comment(s): 1/2 PPD Past Drug Use History: None Reported - Past Family History Father Family Medical History: Cancer, Myocardial Infarction ([place]) Additional Family Medical History / Comment(s): ANEURYSMS, BONE CA. AGE 75 FROM ANEURYSM IN HEAD Mother Family Medical History: Congestive Heart Failure (CHF) Additional Family Medical History / Comment(s): AT AGE 84 Medications and Allergies Home Medications Medication Instructions Recorded Confirmed Type Gabapentin [Neurontin] 100 mg PO BID 11/14/15 05/27/19 History Furosemide [Lasix] 40 mg PO BID 03/22/16 05/27/19 History Warfarin Sodium [Coumadin] 1 mg PO [id number] 08/15/16 05/27/19 History Acetaminophen Tab [Tylenol] 650 mg PO Q4H PRN 05/27/19 05/27/19 History Albuterol Nebulized [Ventolin 2.5 mg INHALATION RT-QID PRN 05/27/19 05/27/19 History Nebulized] Albuterol Sulfate [Ventolin HFA] 2 puff INHALATION RT-QID PRN 05/27/19 05/27/19 History Allopurinol [Zyloprim] 100 mg PO DAILY 05/27/19 05/27/19 History Budesonide [Pulmicort] 0.5 mg INHALATION RT-BID 05/27/19 05/27/19 History Budesonide/Formoterol Fumarate 2 puff INHALATION RT-BID 05/27/19 05/27/19 History [Symbicort 80-4.5 Mcg Inhaler] Diltiazem HCl 30 mg PO Q8H 05/27/19 05/27/19 History Docusate [Colace] 200 mg PO BID 05/27/19 05/27/19 History Ezetimibe/Simvastatin [Vytorin 1 tab PO HS 05/27/19 05/27/19 History 10-10 mg] Ipratropium-Albuterol Nebulize 3 ml INHALATION RT-QID PRN 05/27/19 05/27/19 History [Duoneb 0.5 mg-3 mg/3 ml Soln] LORazepam [Ativan] 0.5 mg PO BID 05/27/19 05/27/19 History Metoprolol Tartrate [Lopressor] 25 mg PO BID 05/27/19 05/27/19 History predniSONE [Deltasone] 40 mg PO DAILY 05/27/19 05/27/19 History Allergies Allergy/AdvReac Type Severity Reaction Status Date / Time No Known Allergies Allergy Verified 05/27/19 15:37 Physical Exam Vitals: Vital Signs Temp Pulse Pulse Resp BP BP Pulse Ox 05/28/19 11:59 91 18 104/59 95 05/28/19 11:41 80 05/28/19 11:29 76 05/28/19 08:11 84 05/28/19 08:00 97.8 F 85 18 103/66 98 05/28/19 07:57 80 05/28/19 06:15 116/95 05/28/19 04:00 98 F 79 20 91/56 95 05/28/19 00:00 98 F 100 19 110/72 98 05/27/19 23:50 96 05/27/19 23:42 96 05/27/19 20:00 97.6 F 106 H 19 99/63 94 L 05/27/19 19:54 116 H 05/27/19 19:44 119 H 90 L 05/27/19 18:11 120 H 22 05/27/19 17:11 98.2 F 120 H 18 122/82 91 L 05/27/19 17:03 105 H 18 110/70 97 05/27/19 15:50 156 H 18 106/82 99 05/27/19 15:10 158 H 16 104/83 95 05/27/19 15:08 16 05/27/19 14:38 98.2 F 152 H 20 126/112 96 Intake and Output 05/27/19 05/28/19 05/28/19 22:59 06:59 14:59 Intake Total 3.333 58.495 Output Total 300 Balance 3.333 -241.505 Intake: Intake, IV Titration 3.333 58.495 Amount Diltiazem 125 mg In 3.333 Sodium Chloride 0.9% 100 ml @ 5 MG/HR 5 mls/hr IV .Q24H [facility] Rx#:[id number] Heparin Sod,Pork in 0.45% 58.495 NaCl 25,000 unit In 0.45 % NaCl 1 250ml.bag @ 12 UNITS/KG/HR 8.709 mls/hr IV .Q24H [facility] Rx#: [id number] Output: Urine 300 Other: Voiding Method Bedside Commode Bedside Commode Bedside Commode # Voids 1 1 # Bowel Movements 1 Weight 72.575 kg 71.9 kg 71.9 kg Gen. appearance, comfortable likely distress Head exam was generally normal. There was no scleral icterus or corneal arcus. Mucous membranes were moist. Neck was supple and without jugular venous distension, thyromegaly, or carotid bruits. Carotids were easily palpable bilaterally. There was no adenopathy. Lungs diminished breath sound along with scattered expiratory wheezes throughout the lung macdonald bilaterally Cardiac exam revealed the PMI to be normally situated and sized. The rhythm was regular and no extrasystoles were noted during several minutes of auscultation. The first and second heart sounds were normal and physiologic splitting of the second heart sound was noted. There were no murmurs, rubs, clicks, or gallops. Overall the heart sounds are distant and I'm not able to she denies significant murmurs. Nevertheless this is a irregular rhythm consistent with atrial fibrillation. Abdominal exam revealed normal bowel sounds. The abdomen was soft, non-tender, and without masses, organomegaly, or appreciable enlargement of the abdominal aorta. Examination of the extremities revealed easily palpable radial, femoral and pedal pulses. There was no cyanosis, clubbing or edema. Examination of the skin revealed no evidence of significant rashes, suspicious appearing nevi or other concerning lesions. Neurologically the patient is moving all 4 extremities without any limitation. Results - Laboratory Findings CBC and BMP: 05/28/19 05:56 05/28/19 05:56 PT/INR, D-dimer PT 16.6 sec (9.0-12.0) H 05/27/19 14:53 INR 1.7 (<1.2) H 05/27/19 14:53 Abnormal lab findings: Abnormal Labs 05/27/19 05/27/19 05/27/19 14:53 14:53 14:53 WBC 12.3 H MCHC RDW 16.5 H Neutrophils # 10.4 H PT INR APTT Chloride 108 H BUN 24 H Glucose 120 H POC Glucose (mg/dL) Plasma Lactic Acid Romero 2.2 H* Magnesium 2.4 H Troponin I Total Protein 5.5 L Albumin 3.1 L 05/27/19 05/27/19 05/27/19 14:53 14:53 18:45 WBC MCHC RDW Neutrophils # PT 16.6 H INR 1.7 H APTT Chloride BUN Glucose POC Glucose (mg/dL) Plasma Lactic Acid Romero 2.7 H* Magnesium Troponin I 0.610 H* Total Protein Albumin 05/27/19 05/27/19 05/27/19 20:35 21:11 23:08 WBC MCHC RDW Neutrophils # PT INR APTT 34.2 H Chloride BUN Glucose POC Glucose (mg/dL) 298 H Plasma Lactic Acid Romero Magnesium Troponin I 0.414 H* Total Protein Albumin 05/27/19 05/28/19 05/28/19 23:08 02:48 05:56 WBC MCHC RDW Neutrophils # PT INR APTT Chloride BUN 27 H Glucose 119 H POC Glucose (mg/dL) Plasma Lactic Acid Romero 4.7 H* Magnesium Troponin I 0.357 H* Total Protein Albumin 05/28/19 05/28/1920 05:56 05:56 05:56 WBC MCHC 30.2 L RDW 16.4 H Neutrophils # 8.1 H PT INR APTT 45.0 H Chloride BUN Glucose POC Glucose (mg/dL) Plasma Lactic Acid Romero 2.3 H* Magnesium Troponin I Total Protein Albumin 05/28/19 05/28/19 06:24 11:32 WBC MCHC RDW Neutrophils # PT INR APTT Chloride BUN Glucose POC Glucose (mg/dL) 152 H 321 H Plasma Lactic Acid Romero Magnesium Troponin I Total Protein Albumin - Diagnostic Findings Chest x-ray: image reviewed Assessment and Plan Plan: 1 acute shortness of breath. The patient is having some increased dyspnea and wheezing. Nevertheless, the overall presentation is more consistent with a cardiac event that occurred on this patient. Going back to the records, the ana rosado has severe MR, severe TR, and secondary pulmonary hypertension. She also suffers from chronic atrial fibrillation. The time of admission, she was in A. fib RVR and her proBNP level was elevated and his troponin was leaking and addition to that the chest x-ray was showing some increased pulmonary vascular markings. She came in with acute hypoxic respiratory failure. As far as COPD/asthma, the patient has very mild obstructive airway disease in the patient's based on FEV1 is at 80% of predicted at baseline and there is no evidence of pneumonia at this point in time. 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 Plan Continue bronchodilators. Continue systemic steroids as the patient developed some hyperglycemia and I'll suggest 40 mg IV; Medrol every 6 hours to control his bronchospasm wheezing Rate control regarding A. fib IV heparin and adjust the Coumadin dose to maintain an INR between 2 and 3 IV Lasix 40 mg every 12 hours Monitor electrolytes Discussed the findings with cardiology We'll continue to follow.
[2019-05-28 13:48] LABS: Appearance,Urine Clear (Clear); Bilirubin,Urine Negative (Negative); Blood,Urine Negative (Negative); Color,Urine Yellow; Glucose,Urine (UA) 1+ (Negative); Ketones,Urine Negative (Negative); Leukocyte Esterase,Urine Negative (Negative); Nitrite,Urine Negative (Negative); Protein,Urine Negative (Negative); Specific Gravity,Urine 1.013 (1.001-1.035); Urobilinogen,Urine <2.0 mg/dL (<2.0)
--- NOTE | 2019-05-28 14:14 | P.PN ---
Subjective Progress Note Date: 05/28/19 (Shoulder breath, atrial fib, lactic acidosis.) Principal diagnosis: Diagnosis: #1 shortness of breath. #2 leukocytosis with pneumonia by computed tomography scan. #3 lactic acidosis started with 2.2, progressed to 2.7, progressed to 4.7 on admission to 05/27/19, on 05/28/2019 lactic acid 2.3 #4 atrial follow-up with rapid ventricular response. #5 abnormal troponin 0.610 , 0.414, 0.357 suggestive of subendocardial infarction. #6 abnormal pro-BMP #7 hyperglycemia secondary to steroid covered with insulin to scale and adjusted the dose. No history of diabetes mellitus. #8 chronic kidney disease stage III. Dictation on the progress note date of service 05/28. dictated by Dr. Barber. Patient seen and evaluated [id number], discussed with Dr. Gonsalves in the pulmonary and critical care following the patient in the hospital, her primary pulmonary DrLaine Servin. Patient appeared to be improving her breathing with the steroid and she has wheezing with asthma, chest x-ray increased pulmonary interstitial density with the underlying possibility of congestive heart failure versus tracheobronchitis and pneumonia. Patient seen by cardiology Dr. Schuster with the impression of dizziness and subsequent fall and she had multiple fall recently, atrial fibrillation with RVR resistant, acute on the chronic kidney disease, elevated lactic acid, abnormal troponin with the consideration of atrial fibrillation and sepsis Hypertension and COPD he I did also spoke personally with pulmonary and critical care Dr. Nowak. His impression that shortness of breath was multifactorial chronic atrial fibrillation, chronic valvular heart disease with significant mitral regurg and severe pulmonary hypertension. History of CVA in the past remapped. History of hypertension and coronary artery disease with a positive leak of troponin. Hypertension and hyperlipidemia, hyper coagulability was loss SPLEEN due to hyper coagulability state and she is on life long warfarin with the c urrently on admission subtherapeutic. Hypoglycemia with a steroid. Vital signs today temperature is 97.8 F oral, heart rate irregular irregularity was 85 bpm with the improvement on the atrial fibrillation rate her blood pressure 103/66 with a mean 78, oxygen saturation 98% on nasal cannula. Her white count 9.2, hemoglobin 13.2 and a hematocrit 43.6, platelet count 351. She is on heparin drip,. Cardiology, sodium 139 potassium 4.1 and chloride 107 carbon dioxide 24 BUN of 27 creatinine 1.04, the nasal natruretic peptide is 3390. Because of the lactic acidosis, her IV fluid increased, also started on Rocephin as well. Patient did well today and we will be checking her laboratory tomorrow . On the physical exam patient is conscious alert oriented 3, Head was normocephalic and atraumatic pupils equal reactive conjunctiva was pink sclera nonicteric and oropharynx is normal throat. Neck supple no JVD no thyromegaly no lymphadenopathy trachea midline. Chest was significant improvement of the rhonchi's and wheezes. Heart atrial fibrillation however currently the heart rate is controlled. Abdomen soft positive bowel sounds no organomegaly enlargement. Extremities no edema and positive pulses. Neurologically no lateralizing sign and stable Assessment: #1 short of breath with the possibility of COPD exacerbation and bronchitis. #2 underlying congestive heart failure acute on the top of chronic diastolic. #3 lactic acidosis probably with the hypoxemia. #4 oxygen dependent with respiratory failure acute on the top of chronic. #5 history of chronic kidney disease stage III, with hypomagnesemia. #6 abnormal proBNP 3390. And abnormal troponin as well. #7 hyperglycemia secondary to steroid. #8 on heparin. #9 hypertension by the history current blood pressure 104/59. Plan: #1 decrease his steroid Solu-Medrol to 40 mg every 8 hours. #2 adjusted the insulin to scale before meals and at bedtime with the using the range 2-12. #3 obtaining hemoglobin A1c #4 continue the current treatment follow the recommendation of the pulmonary and the cardiology. Repeat the lab in a.m. Objective - Vital Signs Vital signs: Vital Signs Temp 97.8 F 05/28/19 08:00 Pulse 91 05/28/19 12:00 Resp 18 05/28/19 12:00 BP 104/59 05/28/19 11:59 Pulse Ox 95 05/28/19 11:59 Intake & Output 05/27/19 05/28/19 05/28/19 18:59 06:59 18:59 Intake Total 3.333 58.495 Output Total 300 Balance 3.333 -241.505 Weight 72.575 kg 71.9 kg 71.9 kg Intake: Intake, IV Titration 3.333 58.495 Amount Diltiazem 125 mg In 3.333 Sodium Chloride 0.9% 100 ml @ 5 MG/HR 5 mls/hr IV .Q24H [facility] Rx#:[id number] Heparin Sod,Pork in 0.45% 58.495 NaCl 25,000 unit In 0.45 % NaCl 1 250ml.bag @ 12 UNITS/KG/HR 8.709 mls/hr IV .Q24H [facility] Rx#: [id number] Output: Urine 300 Other: Voiding Method Bedside Commode Bedside Commode Bedside Commode # Voids 1 1 # Bowel Movements 1 - Labs CBC & Chem 7: 05/28/19 05:56 05/28/19 05:56 Labs: Abnormal Lab Results - Last 24 Hours (Table) 05/27/19 05/27/19 05/27/19 Range/Units 14:53 14:53 14:53 WBC 12.3 H (3.8-10.6) k/uL MCHC (31.0-37.0) g/dL RDW 16.5 H (11.5-15.5) % Neutrophils # 10.4 H (1.3-7.7) k/uL PT (9.0-12.0) sec INR (<1.2) APTT (22.0-30.0) sec Chloride 108 H (98-107) mmol/L BUN 24 H (7-17) mg/dL Glucose 120 H (74-99) mg/dL POC Glucose (mg/dL) (75-99) mg/dL Plasma Lactic Acid Romero 2.2 H* (0.7-2.0) mmol/L Magnesium 2.4 H (1.6-2.3) mg/dL Troponin I (0.000-0.034) ng/mL Total Protein 5.5 L (6.3-8.2) g/dL Albumin 3.1 L (3.5-5.0) g/dL 05/27/19 05/27/19 05/27/19 Range/Units 14:53 14:53 18:45 WBC (3.8-10.6) k/uL MCHC (31.0-37.0) g/dL RDW (11.5-15.5) % Neutrophils # (1.3-7.7) k/uL PT 16.6 H (9.0-12.0) sec INR 1.7 H (<1.2) APTT (22.0-30.0) sec Chloride (98-107) mmol/L BUN (7-17) mg/dL Glucose (74-99) mg/dL POC Glucose (mg/dL) (75-99) mg/dL Plasma Lactic Acid Romero 2.7 H* (0.7-2.0) mmol/L Magnesium (1.6-2.3) mg/dL Troponin I 0.610 H* (0.000-0.034) ng/mL Total Protein (6.3-8.2) g/dL Albumin (3.5-5.0) g/dL 05/27/19 05/27/19 05/27/19 Range/Units 20:35 21:11 23:08 WBC (3.8-10.6) k/uL MCHC (31.0-37.0) g/dL RDW (11.5-15.5) % Neutrophils # (1.3-7.7) k/uL PT (9.0-12.0) sec INR (<1.2) APTT 34.2 H (22.0-30.0) sec Chloride (98-107) mmol/L BUN (7-17) mg/dL Glucose (74-99) mg/dL POC Glucose (mg/dL) 298 H (75-99) mg/dL Plasma Lactic Acid Romero (0.7-2.0) mmol/L Magnesium (1.6-2.3) mg/dL Troponin I 0.414 H* (0.000-0.034) ng/mL Total Protein (6.3-8.2) g/dL Albumin (3.5-5.0) g/dL 05/27/19 05/28/19 05/28/19 Range/Units 23:08 02:48 05:56 WBC (3.8-10.6) k/uL MCHC (31.0-37.0) g/dL RDW (11.5-15.5) % Neutrophils # (1.3-7.7) k/uL PT (9.0-12.0) sec INR (<1.2) APTT (22.0-30.0) sec Chloride (98-107) mmol/L BUN 27 H (7-17) mg/dL Glucose 119 H (74-99) mg/dL POC Glucose (mg/dL) (75-99) mg/dL Plasma Lactic Acid Romero 4.7 H* (0.7-2.0) mmol/L Magnesium (1.6-2.3) mg/dL Troponin I 0.357 H* (0.000-0.034) ng/mL Total Protein (6.3-8.2) g/dL Albumin (3.5-5.0) g/dL 05/28/19 05/28/19 05/28/19 Range/Units 05:56 05:56 05:56 WBC (3.8-10.6) k/uL MCHC 30.2 L (31.0-37.0) g/dL RDW 16.4 H (11.5-15.5) % Neutrophils # 8.1 H (1.3-7.7) k/uL PT (9.0-12.0) sec INR (<1.2) APTT 45.0 H (22.0-30.0) sec Chloride (98-107) mmol/L BUN (7-17) mg/dL Glucose (74-99) mg/dL POC Glucose (mg/dL) (75-99) mg/dL Plasma Lactic Acid Romero 2.3 H* (0.7-2.0) mmol/L Magnesium (1.6-2.3) mg/dL Troponin I (0.000-0.034) ng/mL Total Protein (6.3-8.2) g/dL Albumin (3.5-5.0) g/dL 05/28/19 05/28/19 Range/Units 06:24 11:32 WBC (3.8-10.6) k/uL MCHC (31.0-37.0) g/dL RDW (11.5-15.5) % Neutrophils # (1.3-7.7) k/uL PT (9.0-12.0) sec INR (<1.2) APTT (22.0-30.0) sec Chloride (98-107) mmol/L BUN (7-17) mg/dL Glucose (74-99) mg/dL POC Glucose (mg/dL) 152 H 321 H (75-99) mg/dL Plasma Lactic Acid Romero (0.7-2.0) mmol/L Magnesium (1.6-2.3) mg/dL Troponin I (0.000-0.034) ng/mL Total Protein (6.3-8.2) g/dL Albumin (3.5-5.0) g/dL
[2019-05-28 16:47] LABS: Glucose,Whole Blood 227 mg/dL (75-99)
[2019-05-28] MEDS: methylPREDNISolone SOD SUCCI 40 MG/ML 1 ML VIAL IV SCH ×2 (16:53→23:50)
[2019-05-28] MEDS: HEPARIN SOD,PORK IN 0.45% NACL 25,000 UNIT in 0.45% NACL 1 250ML.BAG IV SCH (16:54)
[2019-05-28 20:37] LABS: Glucose,Whole Blood 138 mg/dL (75-99)
[2019-05-28] MEDS: FUROSEMIDE 10 MG/ML 4 ML VIAL IV SCH (20:53)
[2019-05-28] MEDS: ATORVASTATIN 10 MG TAB PO SCH (20:53)
[2019-05-28] MEDS: EZETIMIBE 10 MG TAB PO SCH (20:53)
[2019-05-28] MEDS: METOPROLOL TARTRATE 50 MG TAB PO SCH (20:56)
--- NOTE | 2019-05-28 23:00 | ECHOF ---
Referral Reason:afib MEASUREMENTS -------- HEIGHT: 154.9 cm WEIGHT: 71.7 kg BP: 103/66 RVIDd: 3.7 cm (< 3.3) IVSd: 1.3 cm (0.6 - 1.1) LVIDd: 4.4 cm (3.9 - 5.3) LVPWd: 1.7 cm (0.6 - 1.1) IVSs: 2.2 cm LVIDs: 3.0 cm LVPWs: 1.9 cm LAESV Index (A-L): 73.50 ml/m Ao Diam: 3.2 cm (2.0 - 3.7) AV Cusp: 2.1 cm (1.5 - 2.6) RAP: 20.00 mmHg RVSP: 63.84 mmHg FINDINGS -------- Atrial fibrillation. This was a technically adequate study. The left ventricular size is normal. There is moderate concentric left ventricular hypertrophy. O verall left ventricular systolic function is moderately impaired with, an EF between 35 - 40 %. Lef t ventricular fillimg pressure cannot be estimated due to Atrial fibrillation. Mid inferoseptal LV wall motion is hypokinetic. Mid anteroseptal LV wall motion is hypokinetic. Apical lateral LV w all motion is hypokinetic. Apical inferior LV wall motion is hypokinetic. Apical septum LV wall motion is hypokinetic. The right ventricle is mild to moderately enlarged. LA is severely dilated >40 ml/m2 The right atrium is moderately enlarged. Interatrial and interventricular septum intact. There is moderate aortic valve sclerosis. There is no evidence of aortic regurgitation. There is no evidence of aortic stenosis. Dnrhmvhr-ee-thowan mitral regurgitation is present. Severe tricuspid regurgitation present. There is severe pulmonary hypertension. The right ventric ular systolic pressure, as measured by Doppler, is 63.84mmHg. There is no pulmonic regurgitation present. The aortic root size is normal. The inferior vena cava is dilated with poor inspiratory collapse which is consistent with estimated r ight atrial pressure of 20 mmHg. There is no pericardial effusion. CONCLUSIONS -------- 1. Atrial fibrillation. 2. This was a technically adequate study. 3. The left ventricular size is normal. 4. There is moderate concentric left ventricular hypertrophy. 5. Overall left ventricular systolic function is moderately impaired with, an EF between 35 - 40 %. 6. Left ventricular fillimg pressure cannot be estimated due to Atrial fibrillation. 7. Mid inferoseptal LV wall motion is hypokinetic. 8. Mid anteroseptal LV wall motion is hypokinetic. 9. Apical lateral LV wall motion is hypokinetic. 10. Apical inferior LV wall motion is hypokinetic. 11. Apical septum LV wall motion is hypokinetic. 12. The right ventricle is mild to moderately enlarged. 13. LA is severely dilated >40 ml/m2 14. The right atrium is moderately enlarged. 15. Interatrial and interventricular septum intact. 16. There is moderate aortic valve sclerosis. 17. There is no evidence of aortic regurgitation. 18. There is no evidence of aortic stenosis. 19. Aaztqtib-dn-suxwxr mitral regurgitation is present. 20. Severe tricuspid regurgitation present. 21. There is severe pulmonary hypertension. 22. The right ventricular systolic pressure, as measured by Doppler, is 63.84mmHg. 23. There is no pulmonic regurgitation present. 24. The aortic root size is normal. 25. The inferior vena cava is dilated with poor inspiratory collapse which is consistent with estimat ed right atrial pressure of 20 mmHg. 26. There is no pericardial effusion. BILL[employer]ARD MECHANIC: Bre Barnes RDCS
[2019-05-29] MEDS: IPRATROPIUM-ALBUTEROL 3 ML NEB INHALATION SCH ×6 (00:56→20:06)
[2019-05-29 06:36] LABS: Glucose,Whole Blood 125 mg/dL (75-99)
[2019-05-29] MEDS: INSULIN ASPART (NovoLOG) 100 UNIT/ML VIAL SQ SCH ×4 (06:37→22:07)
[2019-05-29 06:49] LABS: Anisocytosis Slight; Basophils % (A) 0 %; Eosinophils # (A) 0.1 k/uL (0-0.7); Eosinophils % (A) 1 %; HCT 45.5 % (34.0-46.0); Hypochromasia Slight; Lymphocytes % (A) 6 %; MCH 29.3 pg (25.0-35.0); MCHC 30.8 g/dL (31.0-37.0); MCV 95.3 fL (80.0-100.0); Mean Platelet Volume 7.5; Monocytes # (A) 0.4 k/uL (0-1.0); Monocytes % (A) 2 %; Neutrophils # (A) 16.4 k/uL (1.3-7.7); Neutrophils % (A) 91 %; Platelet Count 330 k/uL (150-450); RBC 4.78 m/uL (3.80-5.40); RDW 16.4 % (11.5-15.5)
[2019-05-29 07:03] LABS: Calcium 8.7 mg/dL (8.4-10.2); Magnesium 2.2 mg/dL (1.6-2.3); Potassium 4.4 mmol/L (3.5-5.1)
[2019-05-29] MEDS: BUDESONIDE 0.5 MG/2 ML NEBU INHALATION SCH ×2 (07:42→20:06)
[2019-05-29] MEDS: methylPREDNISolone SOD SUCCI 40 MG/ML 1 ML VIAL IV SCH ×2 (09:28→22:06)
[2019-05-29] MEDS: ALLOPURINOL 100 MG TAB PO SCH (09:30)
[2019-05-29] MEDS: ASPIRIN 81 MG PO SCH (09:30)
[2019-05-29] MEDS: DOCUSATE 100 MG CAP PO SCH ×2 (09:31→22:24)
[2019-05-29] MEDS: FUROSEMIDE 10 MG/ML 4 ML VIAL IV SCH ×2 (09:32→22:06)
[2019-05-29] MEDS: METOPROLOL TARTRATE 50 MG TAB PO SCH ×2 (09:34→22:06)
[2019-05-29] MEDS: GABAPENTIN 100 MG CAP PO SCH ×2 (09:34→22:05)
[2019-05-29] MEDS: LORazepam 0.5 MG TAB PO SCH ×2 (09:34→22:05)
[2019-05-29 12:00] LABS: Glucose,Whole Blood 179 mg/dL (75-99)
[2019-05-29] MEDS: SODIUM CHLORIDE 0.9% 1,000 ML IV SCH (12:29)
--- NOTE | 2019-05-29 12:30 | P.PN ---
Subjective Progress Note Date: 05/29/19 On 05/29/2019 patient seen in follow-up on selective care unit, she states her breathing is slightly better, still some scattered wheezing and bibasilar crackles remain, she is currently on 3 L of oxygen with a pulse ox of 97%, she is afebrile. Denies any chest pain, cough is congested but she is not able to bring up any phlegm. She is on IV Lasix at 40 mg every 12 hours is difficult to estimate her net fluid balance. She is also receiving IV fluids of 0.9 normal saline at a rate of 75 ML per hour. Today's labs have been reviewed showing white blood cell count of 18, hemoglobin of 14, sodium of 138, potassium is 4.4, chloride is 109, CO2 is 20, BUN of 33, and creatinine is 1.08. She is on IV Solu-Medrol at 40 mg every 8 hours, and nebulized bronchodilators, no fever or chills overnight Objective - Vital Signs Vital signs: Vital Signs Temp 96.6 F L 05/29/19 08:45 Pulse 96 05/29/19 11:02 Resp 24 05/29/19 08:45 BP 123/65 05/29/19 08:45 Pulse Ox 97 05/29/19 08:45 Intake & Output 05/28/19 05/29/19 05/29/19 18:59 06:59 18:59 Intake Total 1387.239 240 Output Total 200 850 400 Balance 1187.239 -850 -160 Weight 71.9 kg 77.2 kg Intake: Intake, IV Titration 787.239 Amount Heparin Sod,Pork in 0.45% 187.239 NaCl 25,000 unit In 0.45 % NaCl 1 250ml.bag @ 12 UNITS/KG/HR 8.709 mls/hr IV .Q24H [facility] Rx#: [id number] Sodium Chloride 0.9% 1, 600 000 ml @ 75 mls/hr IV . [id number] [facility] Rx#:[id number] Oral 600 240 Output: Urine 200 850 400 Other: Voiding Method Bedside Commode Toilet Bedside Commode # Voids 1 1 - Exam GENERAL EXAM: Alert, very pleasant, 83-year-old white female on 3 L of oxygen, comfortable in no apparent distress. HEAD: Normocephalic/atraumatic. EYES: Normal reaction of pupils, equal size. Conjunctiva pink, sclera white. NOSE: Clear with pink turbinates. THROAT: No erythema or exudates. NECK: No masses, no JVD, no thyroid enlargement, no adenopathy. CHEST: No chest wall deformity. Symmetrical expansion. LUNGS: Equal air entry with scattered expiratory wheezes, and bibasilar crackles CVS: Irregular rate and rhythm, normal S1 and S2, no gallops, no murmurs, no rubs ABDOMEN: Soft, nontender. No hepatosplenomegaly, normal bowel sounds, no guarding or rigidity. EXTREMITIES: No clubbing, no edema, no cyanosis, 2+ pulses and upper and lower extremities. MUSCULOSKELETAL: Muscle strength and tone normal. SPINE: No scoliosis or deformity SKIN: No rashes CENTRAL NERVOUS SYSTEM: Alert and oriented -3. No focal deficits, tone is normal in all 4 extremities. PSYCHIATRIC: Alert and oriented -3. Appropriate affect. Intact judgment and insight. - Labs CBC & Chem 7: 05/29/19 06:19 05/29/19 06:19 Labs: Abnormal Lab Results - Last 24 Hours (Table) 05/28/19 05/28/19 05/28/19 Range/Units 13:00 16:46 20:32 WBC (3.8-10.6) k/uL MCHC (31.0-37.0) g/dL RDW (11.5-15.5) % Neutrophils # (1.3-7.7) k/uL Chloride (98-107) mmol/L Carbon Dioxide (22-30) mmol/L BUN (7-17) mg/dL Creatinine (0.52-1.04) mg/dL Glucose (74-99) mg/dL POC Glucose (mg/dL) 227 H 138 H (75-99) mg/dL Urine Glucose (UA) 1+ H (Negative) 05/29/19 05/29/19 05/29/19 Range/Units 06:19 06:19 06:34 WBC 18.0 H (3.8-10.6) k/uL MCHC 30.8 L (31.0-37.0) g/dL RDW 16.4 H (11.5-15.5) % Neutrophils # 16.4 H (1.3-7.7) k/uL Chloride 109 H (98-107) mmol/L Carbon Dioxide 20 L (22-30) mmol/L BUN 33 H (7-17) mg/dL Creatinine 1.08 H (0.52-1.04) mg/dL Glucose 126 H (74-99) mg/dL POC Glucose (mg/dL) 125 H (75-99) mg/dL Urine Glucose (UA) (Negative) 05/29/19 Range/Units 11:57 WBC (3.8-10.6) k/uL MCHC (31.0-37.0) g/dL RDW (11.5-15.5) % Neutrophils # (1.3-7.7) k/uL Chloride (98-107) mmol/L Carbon Dioxide (22-30) mmol/L BUN (7-17) mg/dL Creatinine (0.52-1.04) mg/dL Glucose (74-99) mg/dL POC Glucose (mg/dL) 179 H (75-99) mg/dL Urine Glucose (UA) (Negative) Microbiology - Last 24 Hours (Table) 05/27/19 14:53 Blood Culture - Preliminary Blood No Growth after 24 hours Assessment and Plan Plan: Assessment: 1 acute shortness of breath. The patient is having some increased dyspnea and wheezing. Nevertheless, the overall presentation is more consistent with a cardiac event that occurred on this patient. Going back to the records, the patient has severe MR, severe TR, and secondary pulmonary hypertension. She also suffers from chronic atrial fibrillation. The time of admission, she was in A. fib RVR and her proBNP level was elevated and his troponin was leaking and addition to that the chest x-ray was showing some increased pulmonary vascular markings. She came in with acute hypoxic respiratory failure. As far as COPD/asthma, the patient has very mild obstructive airway disease in the patient's based on FEV1 is at 80% of predicted at baseline and there is no evidence of pneumonia at this point in time. 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 Plan: Continue current medical treatment, continue IV Lasix, follow-up chest x-ray in the morning, patient is still dyspneic and bronchospastic, will continue IV steroids and nebulized bronchodilators, antibiotics, no fever or chills. Remains in atrial fibrillation, the rate is better controlled, cardiology is following, we'll continue to follow along with cardiology and await their further recommendations I performed a history & physical examination of the patient and discussed their management with my nurse practitioner, Billie Amin. I reviewed the nurse practitioner's note and agree with the documented findings and plan of care. Lung sounds are positive for diffuse wheezes throughout the lung macdonald. The findings and the impression was discussed with the patient. I attest to the documentation by the nurse practitioner. Time with Patient: Less than 30
--- NOTE | 2019-05-29 12:36 | P.PN ---
Subjective Progress Note Date: 05/29/19 This is a pleasant 83-year-old female with past medical history consistent for persistent atrial fibrillation, COPD, prior CVA, hyperlipidemia, hypertension, who presented to the hospital after experiencing a fall. According to the family members at the bedside, patient has been experiencing mu ltiple falls. Patient has been extremely weak at home the past few weeks. On this occasion she again had a fall. According the patient, she states that she was getting up to go to the bathroom, got quite dizzy and fell. Chest x-ray shows mild pleural reaction at the left lung base no rib fracture. Chest x-ray shows increased pulmonary interstitial density could relate to mild congestion and mild congestive heart failure. EKG shows atrial fibrillation with rapid ventricular response, nonspecific ST-T wave changes. Blood pressure 104/60 with a heart rate in the 80s, 98% on 4 L of oxygen. White blood cell count on admission 12.3, 9.2 this morning, hemoglobin 13.2, platelet count 351. Sodium 139, potassium 4.1, BUN 27, creatinine 1.0. Plasma lactic acid elevated at 4.7, magnesium 2.4. Troponin 0.61, 0.41, 0.5. BNP level 3390. Influenza A and B-. At the time of my examination this morning the patient is sitting up at bedside, continues to feel extremely weak. Denies any dizziness or lightheadedness, no chest discomfort. Breathing overall is stable. 05/29/2019 Patient seen and examined this morning, she does state that her breathing is improving, continues to be on IV Lasix. Continues to be in atrial fibrillation with a heart rate in the 90s. Echocardiogram with Doppler study was performed which revealed an ejection fraction of 35-40%, severe MR, severe TR. Blood pressure 122/60 with a heart rate of 90, 97% on 3 L. White blood cell count 18.0, hemoglobin 14, platelet count 3:30. Sodium 138, potassium 4.4, BUN 33, creatinine 1.0. Magnesium 2.2. Objective - Vital Signs Vital signs: Vital Signs Temp 96.6 F L 05/29/19 08:45 Pulse 96 05/29/19 11:02 Resp 24 05/29/19 08:45 BP 123/65 05/29/19 08:45 Pulse Ox 97 05/29/19 08:45 Intake & Output 05/28/19 05/29/19 05/29/19 18:59 06:59 18:59 Intake Total 1387.239 240 Output Total 200 850 400 Balance 1187.239 -850 -160 Weight 71.9 kg 77.2 kg Intake: Intake, IV Titration 787.239 Amount Heparin Sod,Pork in 0.45% 187.239 NaCl 25,000 unit In 0.45 % NaCl 1 250ml.bag @ 12 UNITS/KG/HR 8.709 mls/hr IV .Q24H [facility] Rx#: [id number] Sodium Chloride 0.9% 1, 600 000 ml @ 75 mls/hr IV . [id number] [facility] Rx#:[id number] Oral 600 240 Output: Urine 200 850 400 Other: Voiding Method Bedside Commode Toilet Bedside Commode # Voids 1 1 - Exam PHYSICAL EXAMINATION: GENERAL: 82-year-old female in no acute distress at the time of my examination HEENT: Head is atraumatic, normocephalic. Pupils equal, round. Sclera anicteric. Conjunctiva are clear. Mucous membranes of the mouth are moist. Neck is supple. There is no elevated jugular venous pressure. No carotid bruit is heard. HEART EXAMINATION: Heart S1 and S2 irregularly irregular a systolic murmur is heard CHEST EXAMINATION: Lungs reveal coarse wheezing and rhonchi throughout ABDOMEN: Soft, nontender. Bowel sounds are heard. No organomegaly noted. EXTREMITIES: 2+ peripheral pulses with no evidence of peripheral edema and no calf tenderness noted. NEUROLOGIC patient is awake, alert and oriented 3 - Labs CBC & Chem 7: 05/29/19 06:19 05/29/19 06:19 Labs: Abnormal Lab Results - Last 24 Hours (Table) 05/28/19 05/28/19 05/28/19 Range/Units 13:00 16:46 20:32 WBC (3.8-10.6) k/uL MCHC (31.0-37.0) g/dL RDW (11.5-15.5) % Neutrophils # (1.3-7.7) k/uL Chloride (98-107) mmol/L Carbon Dioxide (22-30) mmol/L BUN (7-17) mg/dL Creatinine (0.52-1.04) mg/dL Glucose (74-99) mg/dL POC Glucose (mg/dL) 227 H 138 H (75-99) mg/dL Urine Glucose (UA) 1+ H (Negative) 05/29/19 05/29/19 05/29/19 Range/Units 06:19 06:19 06:34 WBC 18.0 H (3.8-10.6) k/uL MCHC 30.8 L (31.0-37.0) g/dL RDW 16.4 H (11.5-15.5) % Neutrophils # 16.4 H (1.3-7.7) k/uL Chloride 109 H (98-107) mmol/L Carbon Dioxide 20 L (22-30) mmol/L BUN 33 H (7-17) mg/dL Creatinine 1.08 H (0.52-1.04) mg/dL Glucose 126 H (74-99) mg/dL POC Glucose (mg/dL) 125 H (75-99) mg/dL Urine Glucose (UA) (Negative) 05/29/19 Range/Units 11:57 WBC (3.8-10.6) k/uL MCHC (31.0-37.0) g/dL RDW (11.5-15.5) % Neutrophils # (1.3-7.7) k/uL Chloride (98-107) mmol/L Carbon Dioxide (22-30) mmol/L BUN (7-17) mg/dL Creatinine (0.52-1.04) mg/dL Glucose (74-99) mg/dL POC Glucose (mg/dL) 179 H (75-99) mg/dL Urine Glucose (UA) (Negative) Microbiology - Last 24 Hours (Table) 05/27/19 14:53 Blood Culture - Preliminary Blood No Growth after 24 hours Assessment and Plan Plan: Assessment and plan #1 dizziness with subsequent fall. Patient has been having multiple falls recently #2 atrial fibrillation with rapid ventricular response, chronic persistent #3 acute on chronic kidney disease #4 elevated lactic acid #5 abnormal troponins, could be secondary to A. fib with RVR and possible sepsis #6 hypertension #7 COPD Plan Cardiology's perspective, we'll recommend to continue current dose of IV Lasix. Continue to monitor the intake and output along with daily weights and daily lytes BUN and creatinine. DNP note has been reviewed, I agree with a documented findings and plan of care. Patient was seen and examined.
[2019-05-29 12:37] LABS: Hemoglobin A1C 5.7 % (4.0-6.0)
--- NOTE | 2019-05-29 13:01 | P.PN ---
Subjective Progress Note Date: 05/29/19 Dictation progress note date of service 05/29/[address] Li. Patient seen and evaluated today [id number]. She had minimal improvement, her white count WBC 18 with the leukocytosis probably secondary to steroid. Chemistry indicating the sodium 138 potassium 4.4 chloride 109 carbon dioxide was 20, non-gap is 9 BUN of 33 and creatinine 1.08 today her EGFR 48. Chronic kidney disease. See glucose monitored and covered with insulin. The average glucose 117 Pro-BMP 8660. With the underlying congestive heart failure associated with elevated troponin as well. Her hemoglobin A1c 5.7 and hyperglycemia secondary to steroid, as well as the leukocytosis. Patient conscious alert oriented 3 and her at the bedside. Her vital sign temperature 96.6 F axil., Heart rate ranging between 103-100 w ith the underlying tachycardia with the atrial fib however the rate is progressively controlled at this time, blood pressure 123/65 with a mean 84. She had severe respiratory failure and on permanently oxygen and she is pulse ox 97 nasal cannula with 3 L of oxygen supplementation. On exam: Head was normocephalic and atraumatic pupil was equal reactive oropharynx normal with normal swallowing and able to eat naturally. The neck was supple no JVD no stiffness no thyromegaly no lymphadenopathy trachea midline. Chest bilateral rhonchi's and intermittent wheezes however improved clinically from previous exam. Heart PMI in the fifth intercostal space outside midclavicular line with irregular irregularities, with the atrial fibrillation. The abdomen soft positive bowel sounds no organ enlargement. Extremities no edema and positive pulses. Neurologically stable. Assessment: #1 clinical improvement with this treatment #2 still short of breath #3 atrial fib with RVR progressive improvement. Chest x-ray was done on 05/27/2019 and we will order a chest x-ray for tomorrow. #4 echocardiogram repeated and currently she had ejection fraction 34-40% with significant drop with the underlying systolic and diastolic dysfunction and underlying mild inferior septal left ventricular motion is hypo-kinetic and the also mild anteroseptal left ventricular wall hypokinetic as well. And apical lateral left ventricular wall motion is hypokinetic as well and apical inferior left ventricular wall motion is hypokinetic the apical septum left ventricle wall motion is also hypokinetic with the [id number] right ventricular enlargement and left atrium severely dilated. With the underlying atrial fibrillation she had atrial pressure 20 mmHg no pleural effusion and that she had a severe tricuspid regurg severe pulmonary hypertension and the right ventricular pressure 63.84 mmHg. And she had mild/moderate to severe mitral regurg as well and moderate aortic valvular sclerosis lift atrial severely dilated more than 40 mL per meter square and she had hypokinesis significantly affected the ejection fraction to 35-40% which is significantly changed from previous echo. With the current abnormality of the troponin and pro-BMP. Plan we'll continue the diuresis as well as cardiology treatment. And if there is any follow-through condition of the cardiology with the significant abnormality information. Dr. PICKETT and saw the patient yesterday and that we start to decrease the corticosteroid and [place] is clinically improvement. And we will change of the steroid to 40 mg every 12 hours. Objective - Vital Signs Vital signs: Vital Signs Temp 96.6 F L 05/29/19 08:45 Pulse 96 05/29/19 11:02 Resp 24 05/29/19 08:45 BP 123/65 05/29/19 08:45 Pulse Ox 97 05/29/19 08:45 Intake & Output 05/28/19 05/29/19 05/29/19 18:59 06:59 18:59 Intake Total 1387.239 240 Output Total 200 850 400 Balance 1187.239 -850 -160 Weight 71.9 kg 77.2 kg Intake: Intake, IV Titration 787.239 Amount Heparin Sod,Pork in 0.45% 187.239 NaCl 25,000 unit In 0.45 % NaCl 1 250ml.bag @ 12 UNITS/KG/HR 8.709 mls/hr IV .Q24H [facility] Rx#: [id number] Sodium Chloride 0.9% 1, 600 000 ml @ 75 mls/hr IV . [id number] [facility] Rx#:[id number] Oral 600 240 Output: Urine 200 850 400 Other: Voiding Method Bedside Commode Toilet Bedside Commode # Voids 1 1 - Labs CBC & Chem 7: 05/29/19 06:19 05/29/19 06:19 Labs: Abnormal Lab Results - Last 24 Hours (Table) 05/28/19 05/28/19 05/28/19 Range/Units 13:00 16:46 20:32 WBC (3.8-10.6) k/uL MCHC (31.0-37.0) g/dL RDW (11.5-15.5) % Neutrophils # (1.3-7.7) k/uL Chloride (98-107) mmol/L Carbon Dioxide (22-30) mmol/L BUN (7-17) mg/dL Creatinine (0.52-1.04) mg/dL Glucose (74-99) mg/dL POC Glucose (mg/dL) 227 H 138 H (75-99) mg/dL Urine Glucose (UA) 1+ H (Negative) 05/29/19 05/29/19 05/29/19 Range/Units 06:19 06:19 06:34 WBC 18.0 H (3.8-10.6) k/uL MCHC 30.8 L (31.0-37.0) g/dL RDW 16.4 H (11.5-15.5) % Neutrophils # 16.4 H (1.3-7.7) k/uL Chloride 109 H (98-107) mmol/L Carbon Dioxide 20 L (22-30) mmol/L BUN 33 H (7-17) mg/dL Creatinine 1.08 H (0.52-1.04) mg/dL Glucose 126 H (74-99) mg/dL POC Glucose (mg/dL) 125 H (75-99) mg/dL Urine Glucose (UA) (Negative) 05/29/19 Range/Units 11:57 WBC (3.8-10.6) k/uL MCHC (31.0-37.0) g/dL RDW (11.5-15.5) % Neutrophils # (1.3-7.7) k/uL Chloride (98-107) mmol/L Carbon Dioxide (22-30) mmol/L BUN (7-17) mg/dL Creatinine (0.52-1.04) mg/dL Glucose (74-99) mg/dL POC Glucose (mg/dL) 179 H (75-99) mg/dL Urine Glucose (UA) (Negative) Microbiology - Last 24 Hours (Table) 05/27/19 14:53 Blood Culture - Preliminary Blood No Growth after 24 hours
[2019-05-29] MEDS: ACETAMINOPHEN TAB 325 MG TAB PO PRN (13:42)
[2019-05-29 16:51] LABS: Glucose,Whole Blood 115 mg/dL (75-99)
[2019-05-29] MEDS: HEPARIN SOD,PORK IN 0.45% NACL 25,000 UNIT in 0.45% NACL 1 250ML.BAG IV SCH (17:05)
[2019-05-29] MEDS: SODIUM CHLORIDE 0.9% 500 ML 500 ML IV SCH (17:15)
[2019-05-29 20:14] LABS: Glucose,Whole Blood 285 mg/dL (75-99)
[2019-05-29] MEDS: EZETIMIBE 10 MG TAB PO SCH (22:05)
[2019-05-29] MEDS: ATORVASTATIN 10 MG TAB PO SCH (22:06)
[2019-05-30] MEDS: IPRATROPIUM-ALBUTEROL 3 ML NEB INHALATION SCH ×6 (00:03→20:42)
[2019-05-30 06:29] LABS: Glucose,Whole Blood 115 mg/dL (75-99)
[2019-05-30 06:30] LABS: Anisocytosis Slight; Basophils % (A) 0 %; Eosinophils # (A) 0.1 k/uL (0-0.7); Eosinophils % (A) 0 %; HGB 13.9 gm/dL (11.4-16.0); Hypochromasia Slight; Lymphocytes # (A) 0.8 k/uL (1.0-4.8); Lymphocytes % (A) 5 %; MCH 30.1 pg (25.0-35.0); MCHC 31.5 g/dL (31.0-37.0); MCV 95.5 fL (80.0-100.0); Mean Platelet Volume 7.5; Monocytes # (A) 0.5 k/uL (0-1.0); Monocytes % (A) 3 %; Neutrophils # (A) 13.5 k/uL (1.3-7.7); Neutrophils % (A) 91 %; Platelet Count 363 k/uL (150-450); RBC 4.61 m/uL (3.80-5.40); RDW 16.4 % (11.5-15.5)
[2019-05-30] MEDS: BUDESONIDE 0.5 MG/2 ML NEBU INHALATION SCH ×2 (08:31→20:42)
[2019-05-30] MEDS: INSULIN ASPART (NovoLOG) 100 UNIT/ML VIAL SQ SCH ×4 (08:58→20:32)
[2019-05-30] MEDS: DOCUSATE 100 MG CAP PO SCH ×2 (08:59→19:27)
--- NOTE | 2019-05-30 09:32 | XR ---
EXAMINATION TYPE: XR chest 2V DATE OF EXAM: 05/30/2019 COMPARISON: 05/27/2019 HISTORY: 83-year-old female trauma with left-sided chest pain TECHNIQUE: PA and lateral views FINDINGS: Heart borderline enlarged. Leftward patient rotation altering the normal cardiomediastinal contours. Right hilar prominence likely due to the rotational changes. Atherosclerotic calcification throughout the thoracic aorta. Diffuse interstitial prominence is unchanged. Trace left pleural effusion. No co nsolidation. IMPRESSION: Rotated exam. Small left pleural effusion. Chronic appearing interstitial prominence.
[2019-05-30] MEDS: ASPIRIN 81 MG PO SCH (09:59)
[2019-05-30] MEDS: ALLOPURINOL 100 MG TAB PO SCH (09:59)
[2019-05-30] MEDS: FUROSEMIDE 10 MG/ML 4 ML VIAL IV SCH ×2 (10:01→14:53)
[2019-05-30] MEDS: methylPREDNISolone SOD SUCCI 40 MG/ML 1 ML VIAL IV SCH ×2 (10:01→20:17)
[2019-05-30] MEDS: LORazepam 0.5 MG TAB PO SCH ×2 (10:01→20:18)
[2019-05-30] MEDS: GABAPENTIN 100 MG CAP PO SCH ×2 (10:01→20:18)
[2019-05-30] MEDS: METOPROLOL TARTRATE 50 MG TAB PO SCH ×2 (10:02→20:18)
--- NOTE | 2019-05-30 11:52 | P.PN ---
Subjective Progress Note Date: 05/30/19 Principal diagnosis: Long-standing persistent atrial fibrillation/congestive heart failure secondary to systolic dysfunction This is a very pleasant 83-year-old female patient with a past medical history significant for long-standing persistent atrial fibrillation, as well as mu ltiple comorbid conditions, was admitted to the hospital with A. balwinder with RVR as well as heart failure symptoms. She underwent an echocardiogram which revealed impaired LV function with EF of 30-35% with evidence of moderate to severe mitral regurgitation, and severe pulmonary hypertension. Patient was seen today, May 302019. She stated that the shortness of breath is better but still there. No symptoms of chest pain or chest discomfort. On examination she does have bilateral expiratory wheezing. I would advise keep the patient on IV Lasix for additional 24 hours. Beside that I am going to add the Aldactone to the current medical regimen and also start the patient on small dose of lisinopril in view of her cardiomyopathy. Objective - Vital Signs Vital signs: Vital Signs Temp 97.4 F L 05/30/19 08:00 Pulse 100 05/30/19 11:37 Resp 20 05/30/19 08:00 BP 125/71 05/30/19 08:00 Pulse Ox 97 05/30/19 04:00 Intake & Output 05/29/19 05/30/19 05/30/19 18:59 06:59 18:59 Intake Total 490 240 120 Output Total 400 Balance 90 240 120 Weight 77.4 kg Intake: Intake, IV Titration 250 Amount Heparin Sod,Pork in 0.45% 250 NaCl 25,000 unit In 0.45 % NaCl 1 250ml.bag @ 12 UNITS/KG/HR 8.709 mls/hr IV .Q24H [facility] Rx#: [id number] Oral 240 240 120 Output: Urine 400 Other: Voiding Method Toilet Toilet Bedside Commode Bedside Commode - Constitutional General appearance: Present: no acute distress - Respiratory Respiratory: bilateral: wheezing - Cardiovascular Rhythm: irregularly irregular Heart sounds: normal: S1, S2 Abnormal Heart Sounds: Present: systolic murmur - Labs CBC & Chem 7: 05/30/19 05:59 05/29/19 06:19 Labs: Abnormal Lab Results - Last 24 Hours (Table) 05/29/19 05/29/19 05/29/19 Range/Units 11:57 12:48 16:49 WBC (3.8-10.6) k/uL RDW (11.5-15.5) % Neutrophils # (1.3-7.7) k/uL Lymphocytes # (1.0-4.8) k/uL APTT 54.3 H (22.0-30.0) sec POC Glucose (mg/dL) 179 H 115 H (75-99) mg/dL 05/29/19 05/30/19 05/30/19 Range/Units 20:13 05:59 06:28 WBC 15.0 H (3.8-10.6) k/uL RDW 16.4 H (11.5-15.5) % Neutrophils # 13.5 H (1.3-7.7) k/uL Lymphocytes # 0.8 L (1.0-4.8) k/uL APTT (22.0-30.0) sec POC Glucose (mg/dL) 285 H 115 H (75-99) mg/dL Microbiology - Last 24 Hours (Table) 05/27/19 14:53 Blood Culture - Preliminary Blood No Growth after 48 hours Assessment and Plan Assessment: Assessment #1 long-standing persistent atrial fibrillation with relatively controlled heart rate #2 congestive heart failure exacerbation secondary to systolic dysfunction #3 severe cardiomyopathy was EF between 30-35% #4 valvular heart disease was moderate to severe MR and severe TR #5 severe pulmonary hypertension Plan #1 I would advise continue the IV Lasix for additional 24 hours #2 continue monitor the kidney function and electrolytes #3 add Aldactone as well as lisinopril to the current medical regimen #4 follow-up with the patient
[2019-05-30 12:21] LABS: Glucose,Whole Blood 181 mg/dL (75-99)
[2019-05-30] MEDS: SODIUM CHLORIDE 0.9% 500 ML 500 ML IV SCH (14:46)
--- NOTE | 2019-05-30 14:48 | P.PN ---
Subjective Progress Note Date: 05/30/19 On 05/29/2019 patient seen in follow-up on selective care unit, she states her breathing is slightly better, still some scattered wheezing and bibasilar crackles remain, she is currently on 3 L of oxygen with a pulse ox of 97%, she is afebrile. Denies any chest pain, cough is congested but she is not able to bring up any phlegm. She is on IV Lasix at 40 mg every 12 hours is difficult to estimate her net fluid balance. She is also receiving IV fluids of 0.9 normal saline at a rate of 75 ML per hour. Today's labs have been reviewed showing white blood cell count of 18, hemoglobin of 14, sodium of 138, potassium is 4.4, chloride is 109, CO2 is 20, BUN of 33, and creatinine is 1.08. She is on IV Solu-Medrol at 40 mg every 8 hours, and nebulized bronchodilators, no fever or chills overnight On 2019 patient seen in follow-up on selective care unit, still dyspneic, with some basilar crackles and scattered wheezes, but overall improving, she remains on 3 L of oxygen pulse ox 97%, she is afebrile. Patient remains on IV Lasix at 40 mg every 12 hours, she is on empiric antibiotics she is on oral anticoagulation, and IV steroids, today's labs have been reviewed, showing downtrending white blood cell count of 15.0, hemoglobin is 13.9. Blood cultures have been negative, no fever or chills. Today's chest x-ray has been reviewed showing small left pleural effusion and chronic appearing interstitial prominence Objective - Vital Signs Vital signs: Vital Signs Temp 97.9 F 05/30/19 11:25 Pulse 108 H 05/30/19 11:45 Resp 18 05/30/19 11:25 BP 134/86 05/30/19 11:25 Pulse Ox 97 05/30/19 04:00 Intake & Output 05/29/19 05/30/19 05/30/19 18:59 06:59 18:59 Intake Total 490 240 480 Output Total 400 0 Balance 90 240 480 Weight 77.4 kg Intake: Intake, IV Titration 250 Amount Heparin Sod,Pork in 0.45% 250 NaCl 25,000 unit In 0.45 % NaCl 1 250ml.bag @ 12 UNITS/KG/HR 8.709 mls/hr IV .Q24H [facility] Rx#: [id number] Oral 240 240 480 Output: Urine 400 0 Other: Voiding Method Toilet Toilet Bedside Commode # Voids 0 # Bowel Movements 0 - Exam GENERAL EXAM: Alert, very pleasant, 83-year-old white female on 3 L of oxygen, comfortable in no apparent distress. HEAD: Normocephalic/atraumatic. EYES: Normal reaction of pupils, equal size. Conjunctiva pink, sclera white. NOSE: Clear with pink turbinates. THROAT: No erythema or exudates. NECK: No masses, no JVD, no thyroid enlargement, no adenopathy. CHEST: No chest wall deformity. Symmetrical expansion. LUNGS: Equal air entry with scattered expiratory wheezes, and bibasilar crackles CVS: Irregular rate and rhythm, normal S1 and S2, no gallops, no murmurs, no rubs ABDOMEN: Soft, nontender. No hepatosplenomegaly, normal bowel sounds, no guarding or rigidity. EXTREMITIES: No clubbing, no edema, no cyanosis, 2+ pulses and upper and lower extremities. MUSCULOSKELETAL: Muscle strength and tone normal. SPINE: No scoliosis or deformity SKIN: No rashes CENTRAL NERVOUS SYSTEM: Alert and oriented -3. No focal deficits, tone is normal in all 4 extremities. PSYCHIATRIC: Alert and oriented -3. Appropriate affect. Intact judgment and insight. - Labs CBC & Chem 7: 05/30/19 05:59 05/29/19 06:19 Labs: Abnormal Lab Results - Last 24 Hours (Table) 05/29/19 05/29/19 05/30/19 Range/Units 16:49 20:13 05:59 WBC 15.0 H (3.8-10.6) k/uL RDW 16.4 H (11.5-15.5) % Neutrophils # 13.5 H (1.3-7.7) k/uL Lymphocytes # 0.8 L (1.0-4.8) k/uL POC Glucose (mg/dL) 115 H 285 H (75-99) mg/dL 05/30/19 05/30/19 Range/Units 06:28 12:19 WBC (3.8-10.6) k/uL RDW (11.5-15.5) % Neutrophils # (1.3-7.7) k/uL Lymphocytes # (1.0-4.8) k/uL POC Glucose (mg/dL) 115 H 181 H (75-99) mg/dL Microbiology - Last 24 Hours (Table) 05/27/19 14:53 Blood Culture - Preliminary Blood No Growth after 48 hours Assessment and Plan Plan: Assessment: 1 acute shortness of breath. The patient is having some increased dyspnea and wheezing. Nevertheless, the overall presentation is more consistent with a cardiac event that occurred on this patient. Going back to the records, the patient has severe MR, severe TR, and secondary pulmonary hypertension. She also suffers from chronic atrial fibrillation. The time of admission, she was in A. fib RVR and her proBNP level was elevated and his troponin was leaking and addition to that the chest x-ray was showing some increased pulmonary vascular markings. She came in with acute hypoxic respiratory failure. As far as COPD/asthma, the patient has very mild obstructive airway disease in the patient's based on FEV1 is at 80% of predicted at baseline and there is no evidence of pneumonia at this point in time. 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 Plan: Today's chest x-ray has been reviewed, showing small left pleural effusion, and interstitial prominence, overall patient is improving, still has some crackles and a few wheezes, remains on IV Lasix, IV diuretics, antibiotics, increase activity as tolerated, anticipate further improvement and possibility of discharge to [facility] for rehabilitation or home the next 24 hours. I performed a history & physical examination of the patient and discussed their management with my nurse practitioner, Billie Amin. I reviewed the nurse practitioner's note and agree with the documented findings and plan of care. Lung sounds are positive for diffuse wheezes throughout the lung macdonald. The findings and the impression was discussed with the patient. I attest to the documentation by the nurse practitioner. Time with Patient: Less than 30
[2019-05-30] MEDS ORDERED: APIXABAN 5 MG TAB PO ONE (15:00)
[2019-05-30 16:57] LABS: Glucose,Whole Blood 140 mg/dL (75-99)
[2019-05-30] MEDS: ACETAMINOPHEN TAB 325 MG TAB PO PRN (18:24)
--- NOTE | 2019-05-30 19:44 | PN ---
PROGRESS NOTE DATE OF SERVICE: 05/30/2019 DATA: NO CODE. She is 5 feet and 1 inch tall. Her weight is 77.4 kg. Her BMI is 32.2 kg/m2. BSA 1.77 m2. ALLERGIES AND ADVERSE EFFECTS: UNKNOWN. The patient is seen today and evaluated. She was also seen by Dr. Servin, Pulmonary and Critical Care, as well as Dr. Gupta, Cardiology. Her temperature is 98.3 F oral, heart rate improving 102 to 104. She is still short of breath, but nonlabored. Her blood pressure is 126/82 and the mean blood pressure 96. She is still on oxygen at 3 L/minute nasal cannula with saturation 97%. LABORATORY TODAY: White count 15 with the underlying leukocytosis secondary to demargination with the steroid currently. We gradually decreased the doses of the steroids. Platelet count 363. Hemoglobin 13.9 and hematocrit 44. The POC blood sugar was ranging today between 115 and 140. She has coverage with insulin, due to steroid. Her hemoglobin A1c was normal and no evidence of diabetes. Her blood culture has no growth. Her last chest x-ray was done today and indicated a small left pleural effusion and chronic-appearing interstitial prominence. I did discuss with the patient that she has underlying cardiomyopathy as well as a drop in ejection fraction from March to this time, May, over the 2 months. Her current echocardiogram indicates an ejection fraction of 35% to 40%. However, with the evaluation by Dr. Gupta, he felt that it was closer to 30% to 35%. She had significant hypokinesia, generalized, and severe left atrial dilatation and severe mitral regurgitation. No evidence of aortic stenosis and no evidence of aortic regurgitation. Right ventricle is moderately enlarged. Severe pulmonary hypertension. Discussion with the patient was in the presence of her and her daughter. We discussed the presence in the hospital and subsequent nursing homes, [facility], for rehabilitation with the current findings. Her daughter tried to convince her of the benefits of being in the rehab. On exam, patient is conscious, alert, oriented, able to have a few steps to the bathroom. Her head was normocephalic, atraumatic. Pupils equal, reactive. Conjunctivae were pink. Sclerae were nonicteric. Neck was supple and trachea midline. Chest with significant improvement on the inspiratory and expiratory wheezes. However, still short of breath and still needs some continuation of diuresis with the underlying drop in the ejection fraction. The heart had irregular irregularity with the underlying atrial fibrillation, currently compensated with no edema of the lower extremities and no palpable liver. The patient has underlying also on admission acute respiratory failure with hypoxemia, acute on top of chronic, and she had also lactic acidosis, which has gradually improved. The patient has never been diabetic. However, with the steroid she has marked elevation of the blood sugar. Gradually we are decreasing the steroid and her sugar is starting to be controlled. On exam, the heart was irregular, as mentioned. The abdomen was soft, nontender, with positive bowel sounds. Extremities show no edema and positive pulses and no evidence of DVT. ASSESSMENT: On admission she had increased RPR atrial fibrillation and lactic acidosis, elevated troponin with the exacerbation of COPD as well as acute congestive heart failure. She has been on Coumadin anticoagulant at home and she was placed on heparin in her presence by Cardiology and then subsequently she is planning again to be on Coumadin. Dr. Servin is indicating that the patient has to be on lifelong blood thinner Coumadin. The patient tried one tablet first and then a full trial on Eliquis. However, the patient was resistant to the Eliquis and she stated that she had multiple side effects. We will be continuing with the Coumadin. As outpatient she was on 1 mg. She is on inhalation therapy as well and Dr. Gupta added medication to help the underlying congestive heart failure, acute and systolic, with impairment of ejection fraction. PLAN: Continue diuresis. Arrangement by the addiction social worker for [facility]. Cardiology will be letting us know when he is clearing the patient to go to [facility]. MMODL / DAVIDN: [id number] /
[2019-05-30] MEDS: EZETIMIBE 10 MG TAB PO SCH (20:17)
[2019-05-30] MEDS: ATORVASTATIN 10 MG TAB PO SCH (20:18)
[2019-05-30 20:23] LABS: Glucose,Whole Blood 166 mg/dL (75-99)
[2019-05-31] MEDS: IPRATROPIUM-ALBUTEROL 3 ML NEB INHALATION SCH ×7 (00:04→23:40)
[2019-05-31 06:02] LABS: Glucose,Whole Blood 129 mg/dL (75-99)
[2019-05-31] MEDS: INSULIN ASPART (NovoLOG) 100 UNIT/ML VIAL SQ SCH ×4 (06:43→20:43)
[2019-05-31 06:44] LABS: Anisocytosis Slight; HCT 42.2 % (34.0-46.0); HGB 13.1 gm/dL (11.4-16.0); Hypochromasia Slight; MCH 29.4 pg (25.0-35.0); MCHC 31.1 g/dL (31.0-37.0); MCV 94.6 fL (80.0-100.0); Mean Platelet Volume 7.6; Platelet Count 355 k/uL (150-450); RBC 4.46 m/uL (3.80-5.40); RDW 16.4 % (11.5-15.5); WBC 13.6 k/uL (3.8-10.6)
[2019-05-31 06:55] LABS: Calcium 8.6 mg/dL (8.4-10.2); Potassium 3.7 mmol/L (3.5-5.1)
[2019-05-31 06:58] LABS: INR 1.4 (<1.2)
[2019-05-31] MEDS: BUDESONIDE 0.5 MG/2 ML NEBU INHALATION SCH ×2 (07:22→19:11)
[2019-05-31] MEDS: methylPREDNISolone SOD SUCCI 40 MG/ML 1 ML VIAL IV SCH ×2 (09:05→20:43)
[2019-05-31] MEDS: FUROSEMIDE 10 MG/ML 4 ML VIAL IV SCH ×2 (09:05→20:44)
[2019-05-31] MEDS: METOPROLOL TARTRATE 50 MG TAB PO SCH ×2 (09:05→20:44)
[2019-05-31] MEDS: ALLOPURINOL 100 MG TAB PO SCH (09:06)
[2019-05-31] MEDS: GABAPENTIN 100 MG CAP PO SCH ×2 (09:06→20:44)
[2019-05-31] MEDS: DOCUSATE 100 MG CAP PO SCH ×2 (09:06→20:27)
[2019-05-31] MEDS: LORazepam 0.5 MG TAB PO SCH ×2 (09:06→20:44)
[2019-05-31] MEDS: LISINOPRIL 2.5 MG TAB PO SCH (09:06)
[2019-05-31] MEDS: ASPIRIN 81 MG PO SCH (09:06)
[2019-05-31] MEDS: SPIRONOLACTONE 25 MG TAB PO SCH (09:06)
[2019-05-31] MEDS: ACETAMINOPHEN TAB 325 MG TAB PO PRN (09:12)
[2019-05-31 11:44] LABS: Glucose,Whole Blood 188 mg/dL (75-99)
--- NOTE | 2019-05-31 12:16 | P.PN ---
Subjective Progress Note Date: 05/31/19 On 05/29/2019 patient seen in follow-up on selective care unit, she states her breathing is slightly better, still some scattered wheezing and bibasilar crackles remain, she is currently on 3 L of oxygen with a pulse ox of 97%, she is afebrile. Denies any chest pain, cough is congested but she is not able to bring up any phlegm. She is on IV Lasix at 40 mg every 12 hours is difficult to estimate her net fluid balance. She is also receiving IV fluids of 0.9 normal saline at a rate of 75 ML per hour. Today's labs have been reviewed showing white blood cell count of 18, hemoglobin of 14, sodium of 138, potassium is 4.4, chloride is 109, CO2 is 20, BUN of 33, and creatinine is 1.08. She is on IV Solu-Medrol at 40 mg every 8 hours, and nebulized bronchodilators, no fever or chills overnight On 2019 patient seen in follow-up on selective care unit, still dyspneic, with some basilar crackles and scattered wheezes, but overall improving, she remains on 3 L of oxygen pulse ox 97%, she is afebrile. Patient remains on IV Lasix at 40 mg every 12 hours, she is on empiric antibiotics she is on oral anticoagulation, and IV steroids, today's labs have been reviewed, showing downtrending white blood cell count of 15.0, hemoglobin is 13.9. Blood cultures have been negative, no fever or chills. Today's chest x-ray has been reviewed showing small left pleural effusion and chronic appearing interstitial prominence On 05/31/2019 patient seen in follow-up on selective care unit, dyspneic on exertion, but no acute distress, has mild a congested cough, some bibasilar crackles, and wheezing on forced expiratory maneuver, pulse ox is on a percent on 3 L, hemodynamically stable, afebrile, appears weak, and she is having some back pain, she states she is not feeling good related to back pain, and some mild respiratory congestion, no acute events overnight, she remains on Rocephin, her IV steroids have been tapered down to 20 mg every 12 hours, she is receiving nebulized bronchodilators and Lasix Objective - Vital Signs Vital signs: Vital Signs Temp 98.2 F 05/31/19 11:32 Pulse 90 05/31/19 11:32 Resp 18 05/31/19 11:32 BP 144/91 05/31/19 11:32 Pulse Ox 100 05/31/19 11:32 Intake & Output 05/30/19 05/31/19 05/31/19 18:59 06:59 18:59 Intake Total 480 120 200 Output Total 0 Balance 480 120 200 Weight 90.4 kg Intake: Oral 480 120 200 Output: Urine 0 Other: Voiding Method Toilet Toilet # Voids 0 1 # Bowel Movements 0 0 - Exam GENERAL EXAM: Alert, very pleasant, 83-year-old white female on 3 L of oxygen pulse ox of 100%, comfortable in no apparent distress. HEAD: Normocephalic/atraumatic. EYES: Normal reaction of pupils, equal size. Conjunctiva pink, sclera white. NOSE: Clear with pink turbinates. THROAT: No erythema or exudates. NECK: No masses, no JVD, no thyroid enlargement, no adenopathy. CHEST: No chest wall deformity. Symmetrical expansion. LUNGS: Equal air entry with scattered expiratory wheezes, and bibasilar crackles CVS: Irregular rate and rhythm, normal S1 and S2, no gallops, no murmurs, no rubs ABDOMEN: Soft, nontender. No hepatosplenomegaly, normal bowel sounds, no guar ding or rigidity. EXTREMITIES: No clubbing, no edema, no cyanosis, 2+ pulses and upper and lower extremities. MUSCULOSKELETAL: Muscle strength and tone normal. SPINE: No scoliosis or deformity SKIN: No rashes CENTRAL NERVOUS SYSTEM: Alert and oriented -3. No focal deficits, tone is normal in all 4 extremities. PSYCHIATRIC: Alert and oriented -3. Appropriate affect. Intact judgment and insight. - Labs CBC & Chem 7: 05/31/19 05:51 05/31/19 05:51 Labs: Abnormal Lab Results - Last 24 Hours (Table) 05/30/19 05/30/19 05/30/19 Range/Units 12:19 16:55 20:21 WBC (3.8-10.6) k/uL RDW (11.5-15.5) % PT (9.0-12.0) sec INR (<1.2) BUN (7-17) mg/dL Creatinine (0.52-1.04) mg/dL Glucose (74-99) mg/dL POC Glucose (mg/dL) 181 H 140 H 166 H (75-99) mg/dL 05/31/19 05/31/19 05/31/19 Range/Units 05:51 05:51 05:51 WBC 13.6 H (3.8-10.6) k/uL RDW 16.4 H (11.5-15.5) % PT 14.0 H (9.0-12.0) sec INR 1.4 H (<1.2) BUN 47 H (7-17) mg/dL Creatinine 1.20 H (0.52-1.04) mg/dL Glucose 119 H (74-99) mg/dL POC Glucose (mg/dL) (75-99) mg/dL 05/31/19 05/31/19 Range/Units 06:01 11:42 WBC (3.8-10.6) k/uL RDW (11.5-15.5) % PT (9.0-12.0) sec INR (<1.2) BUN (7-17) mg/dL Creatinine (0.52-1.04) mg/dL Glucose (74-99) mg/dL POC Glucose (mg/dL) 129 H 188 H (75-99) mg/dL Microbiology - Last 24 Hours (Table) 05/27/19 14:53 Blood Culture - Preliminary Blood No Growth after 72 hours Assessment and Plan Plan: Assessment: 1 acute shortness of breath. The patient is having some increased dyspnea and wheezing. Nevertheless, the overall presentation is more consistent with a cardiac event that occurred on this patient. Going back to the records, the patient has severe MR, severe TR, and secondary pulmonary hypertension. She also suffers from chronic atrial fibrillation. The time of admission, she was in A. fib RVR and her proBNP level was elevated and his troponin was leaking and addition to that the chest x-ray was showing some increased pulmonary vascular markings. She came in with acute hypoxic respiratory failure. As far as COPD/asthma, the patient has very mild obstructive airway disease in the patient's based on FEV1 is at 80% of predicted at baseline and there is no evidence of pneumonia at this point in time. 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 Plan: Clinically stable, still has some exertional dyspnea and mild congestive cough, vital signs are stable, overall she is improving, does have a generalized weakness. Her IV steroids are being tapered down, she remains on oral Lasix, nebulized bronchodilators and empiric antibiotics, no fever or chills, anticipate further improvement and discharge to [facility] possibly today or tomorrow I performed a history & physical examination of the patient and discussed their management with my nurse practitioner, Billie Amin. I reviewed the nurse practitioner's note and agree with the documented findings and plan of care. Lung sounds are positive for diffuse wheezes throughout the lung macdonald. The findings and the impression was discussed with the patient. I attest to the documentation by the nurse practitioner. Time with Patient: Less than 30
--- NOTE | 2019-05-31 12:27 | P.PN ---
Subjective Progress Note Date: 05/31/19 This is a pleasant 83-year-old female with past medical history consistent for persistent atrial fibrillation, COPD, prior CVA, hyperlipidemia, hypertension, who presented to the hospital after experiencing a fall. According to the family members at the bedside, patient has been experiencing mu ltiple falls. Patient has been extremely weak at home the past few weeks. On this occasion she again had a fall. According the patient, she states that she was getting up to go to the bathroom, got quite dizzy and fell. Chest x-ray shows mild pleural reaction at the left lung base no rib fracture. Chest x-ray shows increased pulmonary interstitial density could relate to mild congestion and mild congestive heart failure. EKG shows atrial fibrillation with rapid ventricular response, nonspecific ST-T wave changes. Blood pressure 104/60 with a heart rate in the 80s, 98% on 4 L of oxygen. White blood cell count on admission 12.3, 9.2 this morning, hemoglobin 13.2, platelet count 351. Sodium 139, potassium 4.1, BUN 27, creatinine 1.0. Plasma lactic acid elevated at 4.7, magnesium 2.4. Troponin 0.61, 0.41, 0.5. BNP level 3390. Influenza A and B-. At the time of my examination this morning the patient is sitting up at bedside, continues to feel extremely weak. Denies any dizziness or lightheadedness, no chest discomfort. Breathing overall is stable. 05/29/2019 Patient seen and examined this morning, she does state that her breathing is improving, continues to be on IV Lasix. Continues to be in atrial fibrillation with a heart rate in the 90s. Echocardiogram with Doppler study was performed which revealed an ejection fraction of 35-40%, severe MR, severe TR. Blood pressure 122/60 with a heart rate of 90, 97% on 3 L. White blood cell count 18.0, hemoglobin 14, platelet count 3:30. Sodium 138, potassium 4.4, BUN 33, creatinine 1.0. Magnesium 2.2. 05/31/2019 Patient was seen and examined this morning, doing well. Blood pressure 144/90 with a heart rate of 90, 100% on 3 L of oxygen. White blood cell count 13.6, hemoglobin 13.1, platelet count 355. Sodium 139, potassium 3.7, BUN 47, creatinine 1.2 INR 1.4. Patient continues to be on IV Lasix at this time. Objective - Vital Signs Vital signs: Vital Signs Temp 98.2 F 05/31/19 11:32 Pulse 90 05/31/19 11:32 Resp 18 05/31/19 11:32 BP 144/91 05/31/19 11:32 Pulse Ox 100 05/31/19 11:32 Intake & Output 05/30/19 05/31/19 05/31/19 18:59 06:59 18:59 Intake Total 480 120 200 Output Total 0 Balance 480 120 200 Weight 90.4 kg Intake: Oral 480 120 200 Output: Urine 0 Other: Voiding Method Toilet Toilet # Voids 0 1 # Bowel Movements 0 0 - Exam PHYSICAL EXAMINATION: GENERAL: 82-year-old female in no acute distress at the time of my examination HEENT: Head is atraumatic, normocephalic. Pupils equal, round. Sclera anicteric. Conjunctiva are clear. Mucous membranes of the mouth are moist. Neck is supple. There is no elevated jugular venous pressure. No carotid bruit is heard. HEART EXAMINATION: Heart S1 and S2 irregularly irregular a systolic murmur is heard CHEST EXAMINATION: Lungs reveal coarse wheezing and rhonchi throughout ABDOMEN: Soft, nontender. Bowel sounds are heard. No organomegaly noted. EXTREMITIES: 2+ peripheral pulses with no evidence of peripheral edema and no calf tenderness noted. NEUROLOGIC patient is awake, alert and oriented 3 - Labs CBC & Chem 7: 05/31/19 05:51 05/31/19 05:51 Labs: Abnormal Lab Results - Last 24 Hours (Table) 05/30/19 05/30/19 05/31/19 Range/Units 16:55 20:21 05:51 WBC (3.8-10.6) k/uL RDW (11.5-15.5) % PT 14.0 H (9.0-12.0) sec INR 1.4 H (<1.2) BUN (7-17) mg/dL Creatinine (0.52-1.04) mg/dL Glucose (74-99) mg/dL POC Glucose (mg/dL) 140 H 166 H (75-99) mg/dL 05/31/19 05/31/19 05/31/19 Range/Units 05:51 05:51 06:01 WBC 13.6 H (3.8-10.6) k/uL RDW 16.4 H (11.5-15.5) % PT (9.0-12.0) sec INR (<1.2) BUN 47 H (7-17) mg/dL Creatinine 1.20 H (0.52-1.04) mg/dL Glucose 119 H (74-99) mg/dL POC Glucose (mg/dL) 129 H (75-99) mg/dL 05/31/19 Range/Units 11:42 WBC (3.8-10.6) k/uL RDW (11.5-15.5) % PT (9.0-12.0) sec INR (<1.2) BUN (7-17) mg/dL Creatinine (0.52-1.04) mg/dL Glucose (74-99) mg/dL POC Glucose (mg/dL) 188 H (75-99) mg/dL Microbiology - Last 24 Hours (Table) 05/27/19 14:53 Blood Culture - Preliminary Blood No Growth after 72 hours Assessment and Plan Plan: Assessment and plan #1 dizziness with subsequent fall. Patient has been having multiple falls recently #2 atrial fibrillation with rapid ventricular response, chronic persistent #3 acute on chronic kidney disease #4 elevated lactic acid #5 abnormal troponins, could be secondary to A. fib with RVR and possible sepsis #6 hypertension #7 COPD Plan Cardiology's perspective, we'll recommend to continue current dose of IV Lasix. From tomorrow we will change patient over to oral diuretics. Continue to monitor the intake and output along with daily weights and daily lytes BUN and creatinine. Arrangements are being made for the patient to go to rehab post discharge. DNP note has been reviewed, I agree with a documented findings and plan of care. Patient was seen and examined.
--- NOTE | 2019-05-31 12:31 | PN ---
PROGRESS NOTE DATE OF SERVICE: 05/31/2019 She is 83 years old, white female, . NEW DATA: She is NO CODE. Her height is 5 feet 1 inch, weight 40.4 kg, and the BMI is 37.7 kg/meter square and BSA 1.89 meter square. ALLERGIES: Unknown. The patient is seen today and evaluated and discussed with her the future plan. She is agreeable with rehabilitation at the [facility] with the progressive falling attacks at home and generalized weakness. Besides that she needs the time for her heart to accommodate and also her conditioned to be much more able to go home subsequently. Patient currently on 1 mg of warfarin and Cardiology restarted her spironolactone 25 mg daily with the underlying significant drop in her ejection fraction with the cardiomyopathy and severe mitral regurgitation. However, the patient is with her lung disease, very difficult to have any intervention, but Dr. Gupta as well as Dr. Rendon would be following the patient. Her ejection fraction now is 35% to 40% and was mentioned by Dr. Gupta probably 30%. She has underlying left ventricular wall hypokinesis and she had apical lateral left ventricular motion abnormalities as well as apical inferior left ventricular wall motion hypokinesis as well and apical septum left ventricular wall motion hypokinesis with severely dilated left atrium with more than 40 mL per meter square. She has right atrium moderately enlarged with the underlying history of atrial fibrillation with the rapid ventricular response on admission. She has as well severe pulmonary hypertension and the systolic pressure of the right ventricle was 63.8. She had moderate to severe mitral regurgitation. I did discuss with the patient this finding on her echocardiogram, which done on May 28, 2019 in the hospital [facility]. She has been seen by Dr. Servin as well and no other changes has been taken care of as she has been already on the medication and we started weaning her off the steroid gradually because of the hyperglycemia. However, patient has no history of diabetes mellitus and we have also checked her hemoglobin A1c which was normal as well. Currently on the examination [id number], her vital signs: 98.2 F oral temperature and pulse 90 per minute, which is very well controlled and respiratory rate 18, and blood pressure is 144/91 with a mean 108. She has a pulse ox 100% on 3 L as well and she will be seen today by the Pulmonary and Cardiology. She has also laboratory today indicating the white count 13.6, and that is mainly associated with the steroid. Her 4.46 and hemoglobin 13.1. She has platelet count 355. Her chemistry indicating the sodium 139, potassium 3.7, chloride 101, carbon dioxide 30. Her BUN is 47 and creatinine 1.20 and that with the estimated glomerular filtration rate 42 and that is probably her baseline as she had cardiomyopathy probably ischemic with the abnormality of pro BNP as well as abnormality of troponin on admission. Hyperglycemia is covered with insulin to scale and that is associated with the steroids. PHYSICAL EXAMINATION: On the physical exam, the patient is conscious, alert, oriented, able to sit at bedside and able to move to her bathroom. However, with the physical therapy she gets short winded and as she stated. Her HEENT was negative. Neck was supple and chest was markedly improvement of the lung aeration. No rhonchi and no wheezes. The heart was irregular irregularities with the currently controlled ventricular response. The abdomen was soft. Positive bowel sounds. No organ enlargement. EXTREMITIES: No edema. The neurological exam was negative. ASSESSMENT HERE: 1. Cardiomyopathy with the impaired ejection fraction associated with shortness of breath. 2. Abnormal troponin on admission and elevated pro BNP associated with systolic and probably diastolic combined acute on the top of chronic congestive heart failure with severe pulmonary hypertension and severe mitral regurgitation as well as drop in the ejection fraction from March of 2019. 3. With the underlying chronic obstructive pulmonary disease exacerbation as well and she is oxygen dependent with the hypoxemia and acute respiratory failure on the top of chronic with association to the congestive heart failure. PLAN: As discussed with the her RN nurse taking care of the patient as well as the social worker masters as well as the patient, we are planning for [facility] and will plan for tomorrow and she will be transferred to the [facility] with continuing rehabilitation and with the conditioning of her underlying frequent falls as well as rehabilitation. We are going also to discontinue the antibiotic tomorrow as well as we are going to change the steroid to short course of steroid and discontinuation of the IV steroid. MMTITIL / LEON: [id number] /
[2019-05-31] MEDS ORDERED: traMADol 50 MG TAB PO PRN (13:37)
[2019-05-31 16:34] LABS: Glucose,Whole Blood 146 mg/dL (75-99)
[2019-05-31] MEDS: WARFARIN 1 MG TAB PO SCH (17:02)
[2019-05-31 20:20] LABS: Glucose,Whole Blood 212 mg/dL (75-99)
[2019-05-31] MEDS: EZETIMIBE 10 MG TAB PO SCH (20:44)
[2019-05-31] MEDS: ATORVASTATIN 10 MG TAB PO SCH (20:44)
[2019-06-01] MEDS: IPRATROPIUM-ALBUTEROL 3 ML NEB INHALATION SCH ×6 (03:00→23:03)
[2019-06-01 06:08] LABS: Glucose,Whole Blood 126 mg/dL (75-99)
[2019-06-01] MEDS: INSULIN ASPART (NovoLOG) 100 UNIT/ML VIAL SQ SCH ×4 (06:10→20:32)
[2019-06-01 06:42] LABS: INR 1.4 (<1.2)
[2019-06-01] MEDS: BUDESONIDE 0.5 MG/2 ML NEBU INHALATION SCH ×2 (08:02→20:29)
--- NOTE | 2019-06-01 09:32 | P.PN ---
Subjective Progress Note Date: 06/01/19 Principal diagnosis: Long-standing persistent atrial fibrillation/congestive heart failure secondary to systolic dysfunction This is a very pleasant 83-year-old female patient with a past medical history significant for long-standing persistent atrial fibrillation, as well as mu ltiple comorbid conditions, was admitted to the hospital with Karolyn. balwinder with RVR as well as heart failure symptoms. She underwent an echocardiogram which revealed impaired LV function with EF of 30-35% with evidence of moderate to severe mitral regurgitation, and severe pulmonary hypertension. The patient was seen today, June [id number]. She stated that the shortness of breath is better but she has been experiencing chest discomfort/indigestion over the left side of the chest. I'm going to obtain an EKG and also obtain cardiac enzymes. Also will repeat the chest x-ray to make sure there is no pneumothorax. She continues to be on IV Lasix. Objective - Vital Signs Vital signs: Vital Signs Temp 97 F L 06/01/19 04:00 Pulse 100 06/01/19 08:18 Resp 20 06/01/19 04:00 BP 139/80 06/01/19 04:00 Pulse Ox 98 06/01/19 04:00 Intake & Output 05/31/19 06/01/19 06/01/19 18:59 06:59 18:59 Intake Total 685 10 Balance 685 10 Weight 69 kg Intake: IV 10 Invasive Line 3 10 Oral 685 Other: Voiding Method Toilet # Voids 3 - Constitutional General appearance: Present: no acute distress - Respiratory Respiratory: bilateral: diminished - Cardiovascular Rhythm: irregularly irregular Heart sounds: normal: S1, S2 - Labs CBC & Chem 7: 05/31/19 05:51 05/31/19 05:51 Labs: Abnormal Lab Results - Last 24 Hours (Table) 05/31/19 05/31/19 05/31/19 Range/Units 11:42 16:34 20:18 PT (9.0-12.0) sec INR (<1.2) POC Glucose (mg/dL) 188 H 146 H 212 H (75-99) mg/dL 06/01/19 06/01/19 Range/Units 06:04 06:07 PT 14.0 H (9.0-12.0) sec INR 1.4 H (<1.2) POC Glucose (mg/dL) 126 H (75-99) mg/dL Microbiology - Last 24 Hours (Table) 05/27/19 14:53 Blood Culture - Preliminary Blood No Growth after 96 hours Assessment and Plan Assessment: Assessment #1 long-standing persistent atrial fibrillation with relatively controlled heart rate #2 congestive heart failure exacerbation secondary to systolic dysfunction #3 severe cardiomyopathy was EF between 30-35% #4 valvular heart disease was moderate to severe MR and severe TR #5 severe pulmonary hypertension #6 chest discomfort Plan #1 I would advise continue the IV Lasix for additional 24 hours #2 continue monitor the kidney function and electrolytes #3 obtain a chest x-ray, EKG, and cardiac enzymes #4 follow-up with the patient
[2019-06-01] MEDS: FUROSEMIDE 10 MG/ML 4 ML VIAL IV SCH ×2 (10:41→20:29)
[2019-06-01] MEDS: METOPROLOL TARTRATE 50 MG TAB PO SCH ×2 (10:41→20:30)
[2019-06-01] MEDS: ALLOPURINOL 100 MG TAB PO SCH (10:41)
[2019-06-01] MEDS: methylPREDNISolone SOD SUCCI 40 MG/ML 1 ML VIAL IV SCH ×2 (10:41→20:30)
[2019-06-01] MEDS: SPIRONOLACTONE 25 MG TAB PO SCH (10:41)
[2019-06-01] MEDS: LISINOPRIL 2.5 MG TAB PO SCH (10:42)
[2019-06-01] MEDS: ASPIRIN 81 MG PO SCH (10:42)
[2019-06-01] MEDS: GABAPENTIN 100 MG CAP PO SCH ×2 (10:42→20:30)
[2019-06-01] MEDS: LORazepam 0.5 MG TAB PO SCH ×2 (10:42→20:30)
[2019-06-01] MEDS: DOCUSATE 100 MG CAP PO SCH ×2 (10:42→20:31)
[2019-06-01 11:02] VITALS: BMI 28.7
[2019-06-01 11:59] LABS: Glucose,Whole Blood 135 mg/dL (75-99)
--- NOTE | 2019-06-01 13:14 | P.DS ---
Providers Date of admission: 05/27/19 16:10 Expected date of discharge: 06/01/19 ([facility] assisted and rehab) Attending physician: Henrique Barber Consults: 05/27/19 16:10 Consult Physician Routine Consulting Provider: Valerie Pedro Consult Reason/Comments: Dyspnea, CHF Do you want consulting provider notified?: Yes Consult Physician Urgent Consulting Provider: Skyler Gupta Consult Reason/Comments: Rapid A. fib, NSTEMI Do you want consulting provider notified?: Already Contacted Primary care physician: Henrique Barber This is a dictation of discharge summary, date of service 06/01/2019 Disposition [facility] and rehab. Follow-up with Dr. Childress, Dr. Rendon as outpatient. Final diagnosis: #1 shortness of breath with acute exacerbation of COPD. #2 acute exacerbation of atrial fibrillation with RVR currently controlled heart rate. #3 congestive heart failure systolic and diastolic acute on top of chronic associated with shortness of breath as well. #4 severe cardiomyopathy with ejection fraction 30-35% per Dr. Schuster cardiology who followed her during her hospitalization. #5 valvular heart disease with moderatesevere mitral regurg and tricuspid regurg. Severe #6 severe pulmonary hypertension. #7 abnormal troponin, and abnormal pro-BMP, #8 non-STEMI CO. Due to demand and supply. #9 COPD, exacerbation, history of little long-standing ex-smoker and asthma. #10 on anticoagulant Coumadin 1 mg, with a history nontolerant to requests with bleeding nasal. #11 general anxiety disorder. #12 back pain and intermittent secondary to advanced degenerative arthritis of the spine. Hospital presentation to the emergency room, 83 years old female with a history of atrial fibrillation presented with frequent fall and dizziness she had some abrasions on the left elbow and short of breath. And irregular heartbeat with atrial fibrillation with RVR. Hospital course: Patient admitted to carburetor specialist and laboratory indicating elevated troponin as well as elevated proBNP patient diuresed. And consultation with cardiology. Because of the shortness of breath which is exacerbated with chronic she has been seen by Dr. Childress in the past, Dr. Pedro was consulted was on the ground for pulmonary and subsequently Dr. Childress did see her in the hospital and the patient with the underlying bronchitis started on antibiotic Rocephin and subsequently discontinued on discharge. As patient diuresed and repeat echocardiogram 2 days with Doppler was indicating significant drop of her systolic function and severe mitral regurg and tricuspid regurg with the underlying congestive heart failure. Patient treated symptomatically by Dr. Schuster and diuresed and subsequent improvement with the frequent fall need for further rehabilitation and the agreed for [facility] and rehab for short periods uncontrolled condition and returned back to home with her . And she is supposed to be followed by Dr. Benson and Dr. Childress as outpatient. [id number] exam on the discharge Patient conscious alert oriented 3 no acute respiratory distress and no acute pain. HEENT was negative able to eat and swallow and the head was normocephalic and atraumatic. Neck supple no thyromegaly no lymphadenopathy. Chest significant improvement of the wheezing and rhonchi's and continued with diuresis. And normal breath sounds. Heart patient with irregular heartbeat however significant compensation with the underlying atrial fibrillation controlled ventricular response. Abdomen is soft positive bowel sounds and no organomegaly enlargement and extremities no edema. Neurologically stable and able to ambulate to the bathroom but still getting episodes of shortness of breath. Assessment: Patient stable to be. Discharged from acute care and transferred here for for further rehabilitation at [facility] and rehab. I will be following the patient in the assisted. And the plan to be followed by Dr. Rendon cardiology and Dr. Childress the pulmonary Review with the medication. Patient Condition at Discharge: Fair Plan - Discharge Summary Discharge Rx Participant: No New Discharge Prescriptions: New Spironolactone [Aldactone] 25 mg PO DAILY tab Aspirin 81 mg PO DAILY chew Atorvastatin [Lipitor] 10 mg PO HS tab Metoprolol Tartrate [Lopressor] 50 mg PO BID tab Nitroglycerin Sl Tabs [Nitrostat] 0.4 mg SUBLINGUAL Q5M PRN tab PRN Reason: Chest Pain Lisinopril [Zestril] 2.5 mg PO DAILY tab Continue Gabapentin [Neurontin] 100 mg PO BID Furosemide [Lasix] 40 mg PO BID Warfarin Sodium [Coumadin] 1 mg PO MOTUWETHFRSA Acetaminophen Tab [Tylenol] 650 mg PO Q4H PRN PRN Reason: Pain Allopurinol [Zyloprim] 100 mg PO DAILY Budesonide [Pulmicort] 0.5 mg INHALATION RT-BID Budesonide/Formoterol Fumarate [Symbicort 80-4.5 Mcg Inhaler] 2 puff INHALATION RT-BID Docusate [Colace] 200 mg PO BID Ezetimibe/Simvastatin [Vytorin 10-10 mg] 1 tab PO HS Ipratropium-Albuterol Nebulize [Duoneb 0.5 mg-3 mg/3 ml Soln] 3 ml INHALATION RT-QID PRN PRN Reason: Shortness Of Breath Discontinued Albuterol Nebulized [Ventolin Nebulized] 2.5 mg INHALATION RT-QID PRN PRN Reason: Shortness Of Breath Diltiazem HCl 30 mg PO Q8H Metoprolol Tartrate [Lopressor] 25 mg PO BID predniSONE [Deltasone] 40 mg PO DAILY No Action Albuterol Sulfate [Ventolin HFA] 2 puff INHALATION RT-QID PRN PRN Reason: Shortness Of Breath LORazepam [Ativan] 0.5 mg PO BID Discharge Medication List Gabapentin [Neurontin] 100 mg PO BID 11/14/15 [History] Furosemide [Lasix] 40 mg PO BID 03/22/16 [History] Warfarin Sodium [Coumadin] 1 mg PO MOTUWETHFRSA 08/15/16 [History] Acetaminophen Tab [Tylenol] 650 mg PO Q4H PRN 05/27/19 [History] Albuterol Sulfate [Ventolin HFA] 2 puff INHALATION RT-QID PRN 05/27/19 [History] Allopurinol [Zyloprim] 100 mg PO DAILY 05/27/19 [History] Budesonide [Pulmicort] 0.5 mg INHALATION RT-BID 05/27/19 [History] Budesonide/Formoterol Fumarate [Symbicort 80-4.5 Mcg Inhaler] 2 puff INHALATION RT-BID 05/27/19 [History] Docusate [Colace] 200 mg PO BID 05/27/19 [History] Ezetimibe/Simvastatin [Vytorin 10-10 mg] 1 tab PO HS 05/27/19 [History] Ipratropium-Albuterol Nebulize [Duoneb 0.5 mg-3 mg/3 ml Soln] 3 ml INHALATION RT-QID PRN 05/27/19 [History] LORazepam [Ativan] 0.5 mg PO BID 05/27/19 [History] Aspirin 81 mg PO DAILY chew 06/01/19 [Rx] Atorvastatin [Lipitor] 10 mg PO HS tab 06/01/19 [Rx] Lisinopril [Zestril] 2.5 mg PO DAILY tab 06/01/19 [Rx] Metoprolol Tartrate [Lopressor] 50 mg PO BID tab 06/01/19 [Rx] Nitroglycerin Sl Tabs [Nitrostat] 0.4 mg SUBLINGUAL Q5M PRN tab 06/01/19 [Rx] Spironolactone [Aldactone] 25 mg PO DAILY tab 06/01/19 [Rx] Follow up Appointment(s)/Referral(s): Berna Servin MD [STAFF PHYSICIAN] - 1 Week Emerita Rendon MD [STAFF PHYSICIAN] - 1 Week None,Stated [REFERRING] - 1-2 days [facility] Visiting Nurse, [NON-STAFF] - 1-2 Days Activity/Diet/Wound Care/Special Instructions: Sujey copay $9.60 per month. RX in outpatient pharmacy.
--- NOTE | 2019-06-01 14:33 | XR ---
EXAMINATION TYPE: XR chest 2V DATE OF EXAM: 06/01/2019 COMPARISON: Prior chest x-ray 2 days earlier. HISTORY: CHF with shortness of breath TECHNIQUE: Frontal and lateral views of the chest are obtained. FINDINGS: Demineralization is redemonstrated. Underlying dextroconvex scoliotic curvature is noted. T here is persistent cardiomegaly with atherosclerotic thoracic aorta. There is background chronic pare nchymal change without new suspicious focal airspace opacity or pneumothorax. There are stable small to tiny left pleural effusion. IMPRESSION: Chronic parenchymal changes and cardiomegaly with small to tiny left pleural effusion. N o significant change from prior.
[2019-06-01 16:58] LABS: Glucose,Whole Blood 145 mg/dL (75-99)
[2019-06-01] MEDS: WARFARIN 1 MG TAB PO SCH (17:31)
[2019-06-01 19:58] LABS: Glucose,Whole Blood 204 mg/dL (75-99)
[2019-06-01] MEDS: ATORVASTATIN 10 MG TAB PO SCH (20:30)
[2019-06-01] MEDS: EZETIMIBE 10 MG TAB PO SCH (20:55)
[2019-06-02] MEDS: IPRATROPIUM-ALBUTEROL 3 ML NEB INHALATION SCH ×4 (04:12→16:36)
[2019-06-02 06:21] LABS: Glucose,Whole Blood 115 mg/dL (75-99)
[2019-06-02 06:24] LABS: INR 1.4 (<1.2); Prothrombin Time 14.1 sec (9.0-12.0)
[2019-06-02] MEDS: INSULIN ASPART (NovoLOG) 100 UNIT/ML VIAL SQ SCH ×2 (06:27→12:25)
[2019-06-02] MEDS: BUDESONIDE 0.5 MG/2 ML NEBU INHALATION SCH (08:24)
--- NOTE | 2019-06-02 08:46 | P.PN ---
Subjective Progress Note Date: 06/02/19 Principal diagnosis: Long-standing persistent atrial fibrillation/congestive heart failure secondary to systolic dysfunction This is a very pleasant 83-year-old female patient with a past medical history significant for long-standing persistent atrial fibrillation, as well as mu ltiple comorbid conditions, was admitted to the hospital with A. balwinder with RVR as well as heart failure symptoms. She underwent an echocardiogram which revealed impaired LV function with EF of 30-35% with evidence of moderate to severe mitral regurgitation, and severe pulmonary hypertension. The patient was seen today, 06/02/2019. She is feeling better. No chest pain or chest discomfort. The shortness of breath has improved. On examination she does not have the wheezing she had this before. From the cardiovascular standpoint of view, the patient can be discharged home. Objective - Vital Signs Vital signs: Vital Signs Temp 97.5 F L 06/02/19 07:49 Pulse 100 06/02/19 08:25 Resp 16 06/02/19 07:49 BP 129/81 06/02/19 07:49 Pulse Ox 98 06/02/19 07:49 Intake & Output 06/01/19 06/02/19 06/02/19 18:59 06:59 18:59 Intake Total 476 Output Total 425 Balance 476 -425 Weight 69 kg 75.6 kg Intake: Oral 476 Output: Urine 425 Other: Voiding Method Toilet Toilet # Voids 1 1 - Constitutional General appearance: Present: no acute distress - Respiratory Respiratory: bilateral: diminished - Cardiovascular Heart sounds: normal: S1, S2 - Labs CBC & Chem 7: 05/31/19 05:51 05/31/19 05:51 Labs: Abnormal Lab Results - Last 24 Hours (Table) 06/01/19 06/01/19 06/01/19 Range/Units 11:58 14:54 16:56 PT (9.0-12.0) sec INR (<1.2) POC Glucose (mg/dL) 135 H 145 H (75-99) mg/dL Troponin I 0.086 H* (0.000-0.034) ng/mL 06/01/19 06/01/19 06/02/19 Range/Units 19:57 20:09 02:39 PT (9.0-12.0) sec INR (<1.2) POC Glucose (mg/dL) 204 H (75-99) mg/dL Troponin I 0.090 H* 0.089 H* (0.000-0.034) ng/mL 06/02/19 06/02/19 Range/Units 05:41 06:19 PT 14.1 H (9.0-12.0) sec INR 1.4 H (<1.2) POC Glucose (mg/dL) 115 H (75-99) mg/dL Troponin I (0.000-0.034) ng/mL Microbiology - Last 24 Hours (Table) 05/27/19 14:53 Blood Culture - Preliminary Blood No Growth after 120 hours Assessment and Plan Assessment: Assessment #1 long-standing persistent atrial fibrillation with relatively controlled heart rate #2 congestive heart failure exacerbation secondary to systolic dysfunction #3 severe cardiomyopathy was EF between 30-35% #4 valvular heart disease was moderate to severe MR and severe TR #5 severe pulmonary hypertension #6 chest discomfort Plan #1 DC Lasix IV and start the patient on Lasix by mouth #2 the patient can be discharged home
[2019-06-02] MEDS ORDERED: FUROSEMIDE 40 MG TAB PO SCH (09:00)
[2019-06-02] MEDS: METOPROLOL TARTRATE 50 MG TAB PO SCH (09:24)
[2019-06-02] MEDS: LISINOPRIL 2.5 MG TAB PO SCH (09:25)
[2019-06-02] MEDS: ASPIRIN 81 MG PO SCH (09:25)
[2019-06-02] MEDS: ALLOPURINOL 100 MG TAB PO SCH (09:25)
[2019-06-02] MEDS: SPIRONOLACTONE 25 MG TAB PO SCH (09:25)
[2019-06-02] MEDS: GABAPENTIN 100 MG CAP PO SCH (09:25)
[2019-06-02] MEDS: DOCUSATE 100 MG CAP PO SCH ×2 (09:25→12:25)
[2019-06-02] MEDS: LORazepam 0.5 MG TAB PO SCH (09:27)
[2019-06-02] MEDS: methylPREDNISolone SOD SUCCI 40 MG/ML 1 ML VIAL IV SCH (09:58)
[2019-06-02 11:40] LABS: Glucose,Whole Blood 127 mg/dL (75-99)
[2019-06-02 12:25] VITALS: BP 142/86; PULSE 93; RESP 18; TEMP 96.6
--- NOTE | 2019-06-02 13:17 | P.DS ---
Providers Date of admission: 05/27/19 16:10 Expected date of discharge: 06/02/19 (Discharge summary dictated on 06/01/2019, patient held from discharge by cardiology Dr. Gupta.) Attending physician: Henrique Barber Consults: 05/27/19 16:10 Consult Physician Routine Consulting Provider: Valerie Pedro Consult Reason/Comments: Dyspnea, CHF Do you want consulting provider notified?: Yes Consult Physician Urgent Consulting Provider: Skyler Gupta Consult Reason/Comments: Rapid A. fib, NSTEMI Do you want consulting provider notified?: Already Contacted Primary care physician: Henrique Barber This is an addendum on the discharge summary dictated on 06/01/2019. Which was canceled by cardiology request because of the patient had some problem with chest pain and the need to add a test. As well as he ordered Lasix IV, [facility] Today I did discuss with Dr. Schuster personally and he stated that she is as good as he can follow the care and she is cleared to go to a longterm [facility] today. Discharge and final diagnoses has been dictated on 06/01/2019 with no changes in the general condition, vital sign,. On the physical examination [id number] before discharge. Patient conscious alert oriented 3, hot at bedside, patient voiced no chest pain and no complaint she had chronic back pain with degenerative osteoarthritis. Head was normocephalic and atraumatic pupils equal reactive conjunctiva was pink sclera was nonicteric. Neck was supple no JVD no thyromegaly no lymphadenopathy trachea midline. Chest markedly improvement with the chronic respiratory failure with the account on the top and she is on oxygen. Permanent currently increased to a later with the pulse ox stable. And she had chronic COPD with the history of ex-smoker in the past and she will be followed by Dr. Childress. Heart: She had history of non-Q VA as well as congestive heart failure acute systolic on the top of chronic as well as diastolic dysfunction. With the decreased ejection fraction to 30 to 3035. And she is on diuresis. Abdomen soft positive bowel sounds no tenderness. Extremities no edema and positive pulses. She has no neurological deficient no lateralizing sign, and she is ambulatory. Assessment stable [facility] with the clearance of the cardiology Dr. Gupta. 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 Also spiked a prescription for Ultram for 3 days with the help of rehabilitation at [facility] and rehab. The prescription on the chart. Complete dictation of the discharge on 06/01/2019 his current and should be he used for the discharge thank you Patient Condition at Discharge: Fair Plan - Discharge Summary Discharge Rx Participant: No New Discharge Prescriptions: New Spironolactone [Aldactone] 25 mg PO DAILY tab Aspirin 81 mg PO DAILY chew Atorvastatin [Lipitor] 10 mg PO HS tab Metoprolol Tartrate [Lopressor] 50 mg PO BID tab Nitroglycerin Sl Tabs [Nitrostat] 0.4 mg SUBLINGUAL Q5M PRN tab PRN Reason: Chest Pain Lisinopril [Zestril] 2.5 mg PO DAILY tab Budesonide [Pulmicort] 0.5 mg INHALATION RT-BID ml Continue Gabapentin [Neurontin] 100 mg PO BID Furosemide [Lasix] 40 mg PO BID Warfarin Sodium [Coumadin] 1 mg PO MOTUWETHFRSA Acetaminophen Tab [Tylenol] 650 mg PO Q4H PRN PRN Reason: Pain Allopurinol [Zyloprim] 100 mg PO DAILY Budesonide [Pulmicort] 0.5 mg INHALATION RT-BID Budesonide/Formoterol Fumarate [Symbicort 80-4.5 Mcg Inhaler] 2 puff INHALATION RT-BID Docusate [Colace] 200 mg PO BID Ezetimibe/Simvastatin [Vytorin 10-10 mg] 1 tab PO HS Ipratropium-Albuterol Nebulize [Duoneb 0.5 mg-3 mg/3 ml Soln] 3 ml INHALATION RT-QID PRN PRN Reason: Shortness Of Breath LORazepam [Ativan] 0.5 mg PO BID Discontinued Albuterol Nebulized [Ventolin Nebulized] 2.5 mg INHALATION RT-QID PRN PRN Reason: Shortness Of Breath Albuterol Sulfate [Ventolin HFA] 2 puff INHALATION RT-QID PRN PRN Reason: Shortness Of Breath Diltiazem HCl 30 mg PO Q8H Metoprolol Tartrate [Lopressor] 25 mg PO BID predniSONE [Deltasone] 40 mg PO DAILY Discharge Medication List Gabapentin [Neurontin] 100 mg PO BID 11/14/15 [History] Furosemide [Lasix] 40 mg PO BID 03/22/16 [History] Warfarin Sodium [Coumadin] 1 mg PO MOTUWETHFRSA 08/15/16 [History] Acetaminophen Tab [Tylenol] 650 mg PO Q4H PRN 05/27/19 [History] Allopurinol [Zyloprim] 100 mg PO DAILY 05/27/19 [History] Budesonide [Pulmicort] 0.5 mg INHALATION RT-BID 05/27/19 [History] Budesonide/Formoterol Fumarate [Symbicort 80-4.5 Mcg Inhaler] 2 puff INHALATION RT-BID 05/27/19 [History] Docusate [Colace] 200 mg PO BID 05/27/19 [History] Ezetimibe/Simvastatin [Vytorin 10-10 mg] 1 tab PO HS 05/27/19 [History] Ipratropium-Albuterol Nebulize [Duoneb 0.5 mg-3 mg/3 ml Soln] 3 ml INHALATION RT-QID PRN 05/27/19 [History] LORazepam [Ativan] 0.5 mg PO BID 05/27/19 [History] Aspirin 81 mg PO DAILY chew 06/01/19 [Rx] Atorvastatin [Lipitor] 10 mg PO HS tab 06/01/19 [Rx] Lisinopril [Zestril] 2.5 mg PO DAILY tab 06/01/19 [Rx] Metoprolol Tartrate [Lopressor] 50 mg PO BID tab 06/01/19 [Rx] Nitroglycerin Sl Tabs [Nitrostat] 0.4 mg SUBLINGUAL Q5M PRN tab 06/01/19 [Rx] Spironolactone [Aldactone] 25 mg PO DAILY tab 06/01/19 [Rx] Budesonide [Pulmicort] 0.5 mg INHALATION RT-BID ml 06/02/19 [Rx] Follow up Appointment(s)/Referral(s): Berna Servin MD [STAFF PHYSICIAN] - 1 Week Emerita Rendon MD [STAFF PHYSICIAN] - 1 Week None,Stated [REFERRING] - 1-2 days [facility] Visiting Nurse, [NON-STAFF] - 1-2 Days Activity/Diet/Wound Care/Special Instructions: Sujey copay $9.60 per month. RX in outpatient pharmacy.
--- NOTE | 2019-06-05 13:11 | CDI ---
Documentation Clarification Form Date: 06/05/19 From: Salome Barahona CCS Phone: If you have a question about this query, please contact Esperanza Richmond, Candy Depositing Machine Operator at [phone] between 8am and 5pm. Admit Date: 05/27/19 Discharge Date: 06/02/19 Patient Name: Sandie Virk Visit Number: [id number] ATTENTION: The Clinical Documentation Specialists (CDI) and [facility] Coding Staff appreciate your assistance in clarifying documentation. Please respond to the clarification below the line at the bottom and electronically sign. The CDI & [facility] Coding staff will review the response and follow-up if needed. Please note: Queries are made part of the Legal Health Record. If you have any questions, please contact the author of this message via ITS. Dear Dr. Barber, The patient presented with the following COPD exacerbation, AFIB, CHF. History/Risk Factors: COPD w/ exac, Type II DC, CHF, AFIB, Acidosis Clinical Indicators: Lactic acidosis, Leukocytosis, Acute exacerbation of chronic respiratory failure, Acute renal failure Lab findings: WBC 12.3, 18.0, 15.0 - Lactic Acid 2.2, 2.7, 4.7 Vital Signs: BP 126/112, Temp 98.2, TX 152, RR 20 Treatment: Rocephin IV 50 ml IVPB Q12 HR Consults: Mayela In your professional opinion, can you please clarify the infectious process treated? Sepsis Pneumonia Acute Bronchitis Other, please specify Unable to determine MTDD
--- NOTE | 2019-06-07 13:39 | CDI ---
Documentation Clarification Form Date: 06/07/19 From: Salome Barahona CCS Phone: If you have a question about this query, please contact Esperanza Richmond, Certified Medication Aide at [phone] between 8am and 5pm. Admit Date: 05/27/19 Discharge Date: 06/02/19 Patient Name: Sandie Virk Visit Number: [id number] ATTENTION: The Clinical Documentation Specialists (CDI) and [facility] Coding Staff appreciate your assistance in clarifying documentation. Please respond to the clarification below the line at the bottom and electronically sign. The CDI & [facility] Coding staff will review the response and follow-up if needed. Please note: Queries are made part of the Legal Health Record. If you have any questions, please contact the author of this message via ITS. Dear Dr. Barber, The patient presented with the following COPD exacerbation, AFIB, CHF. History/Risk Factors: COPD w/ exac, Type II [place], CHF, AFIB, Acidosis Clinical Indicators: Lactic acidosis, Leukocytosis, Acute exacerbation of chronic respiratory failure, Acute renal failure Lab findings: WBC 12.3, 18.0, 15.0 - Lactic Acid 2.2, 2.7, 4.7 Vital Signs: BP 126/112, Temp 98.2, ND 152, RR 20 Treatment: Rocephin IV 50 ml IVPB Q12 HR Consults: Mayela In your professional opinion, can you please clarify the infectious process treated? Sepsis Pneumonia Acute Bronchitis Other, please specify Unable to determine MTDD
--- NOTE | 2019-06-08 09:06 | CDI ---
Documentation Clarification Form Date: 06/08/19 From: Salome Barahona CCS Phone: If you have a question about this query, please contact Esperanza Richmond, Urban Forester at [phone] between 8am and 5pm. Admit Date: 05/27/19 Discharge Date: 06/02/19 Patient Name: Sandie Virk Visit Number: [id number] ATTENTION: The Clinical Documentation Specialists (CDI) and [facility] Coding Staff appreciate your assistance in clarifying documentation. Please respond to the clarification below the line at the bottom and electronically sign. The CDI & [facility] Coding staff will review the response and follow-up if needed. Please note: Queries are made part of the Legal Health Record. If you have any questions, please contact the author of this message via ITS. Dear Dr. Barber, The patient presented with the following COPD exacerbation, AFIB, CHF. History/Risk Factors: COPD w/ exac, Type II [place], CHF, AFIB, Acidosis Clinical Indicators: Lactic acidosis, Leukocytosis, Acute exacerbation of chronic respiratory failure, Acute renal failure Lab findings: WBC 12.3, 18.0, 15.0 - Lactic Acid 2.2, 2.7, 4.7 Vital Signs: BP 126/112, Temp 98.2, IA 152, RR 20 C-Xray: 05/27- Increased pulmonary interstitial density could relate to mild congestion and mild heart failure that is a change compared to old exam. 05/30: Small left pleural effusion.Chronic appearing interstitial prominence. 06/01- Chronic parenchymal changes and cardiomegaly with small to tiny left pleural effusion.No significant change from prior. Treatment: Rocephin IV 50 ml IVPB Q12 HR Consults: Mayela In your professional opinion, can you please clarify the infectious process treated? Sepsis Pneumonia Acute Bronchitis Other, please specify Unable to determine Acute bronchitis MTDD
== END 2019-06-02 14:55 | DRG 280 ==
LOC: EC 14:36 → 3SCARD 16:10
PROVIDERS: ADMIT Internal Medicine; ATTEND Internal Medicine
DX: I13.0 Hypertensive heart and chronic kidney disease with heart failure and stage 1 through stage 4 chronic kidney disease, or unspecified chronic kidney disease (principal); J96.21 Acute and chronic respiratory failure with hypoxia; I21.A1 Myocardial infarction type 2; I50.43 Acute on chronic combined systolic (congestive) and diastolic (congestive) heart failure; E87.2 Acidosis; D68.59 Other primary thrombophilia; N17.9 Acute kidney failure, unspecified; J44.1 Chronic obstructive pulmonary disease with (acute) exacerbation; I48.11 Longstanding persistent atrial fibrillation; J44.0 Chronic obstructive pulmonary disease with (acute) lower respiratory infection; I27.29 Other secondary pulmonary hypertension; N18.3 Chronic kidney disease, stage 3 (moderate); J20.9 Acute bronchitis, unspecified; S50.312A Abrasion of left elbow, initial encounter; E78.5 Hyperlipidemia, unspecified; R32 Unspecified urinary incontinence; E66.9 Obesity, unspecified; I71.4 Abdominal aortic aneurysm, without rupture; I25.10 Atherosclerotic heart disease of native coronary artery without angina pectoris; R73.9 Hyperglycemia, unspecified; E83.42 Hypomagnesemia; I25.5 Ischemic cardiomyopathy; M47.9 Spondylosis, unspecified; G89.29 Other chronic pain; F41.1 Generalized anxiety disorder; R29.6 Repeated falls; I08.1 Rheumatic disorders of both mitral and tricuspid valves; T38.0X5A Adverse effect of glucocorticoids and synthetic analogues, initial encounter; W19.XXXA Unspecified fall, initial encounter; Z71.3 Dietary counseling and surveillance; Z68.37 Body mass index [BMI] 37.0-37.9, adult; Z99.81 Dependence on supplemental oxygen; Z79.899 Other long term (current) drug therapy; Z79.01 Long term (current) use of anticoagulants; Z79.51 Long term (current) use of inhaled steroids; Z79.52 Long term (current) use of systemic steroids; Z86.73 Personal history of transient ischemic attack (TIA), and cerebral infarction without residual deficits; Z91.81 History of falling; Z86.19 Personal history of other infectious and parasitic diseases; Z87.01 Personal history of pneumonia (recurrent); Z86.718 Personal history of other venous thrombosis and embolism; Z87.19 Personal history of other diseases of the digestive system; Z90.49 Acquired absence of other specified parts of digestive tract; Z98.890 Other specified postprocedural states; Z90.710 Acquired absence of both cervix and uterus; Z98.42 Cataract extraction status, left eye; Z90.81 Acquired absence of spleen; Z98.41 Cataract extraction status, right eye; Z96.1 Presence of intraocular lens; Z87.891 Personal history of nicotine dependence; Z82.49 Family history of ischemic heart disease and other diseases of the circulatory system; Z80.8 Family history of malignant neoplasm of other organs or systems
CPT/HCPCS: 36415; 71046; 80048; 80053; 80061; 81003; 82550; 83036; 83605; 83735; 83880; 84443; 84484; 85025; 85027; 85610; 85730; 87040; 87502; 93005; 93306; 94640; 94760; 96365; 96366; 96375; 96376; 99291

== ENCOUNTER 2019-06-09 16:21 | Inpatient (IN) | payer MEDICARE ==
[2019-06-09] MEDS ORDERED: ASPIRIN 81 MG PO STA (16:44)
[2019-06-09] MEDS ORDERED: SODIUM CHLORIDE 0.9% 500 ML 500 ML IV STA (16:44)
--- NOTE | 2019-06-09 17:27 | ED ---
Recheck HPI <Markus Bardales - Last Filed: 06/09/19 19:07> - General Source: patient, EMS Mode of arrival: EMS Limitations: physical limitation <Stephany Wolfe - Last Filed: 06/09/19 19:31> - General Chief Complaint: Recheck/Abnormal Lab/Rx Stated Complaint: elevated troponin Time Seen by Provider: 06/09/19 16:24 - History of Present Illness Initial Comments: Patient is an 83-year-old female, with history of A. fib on Coumadin, heart disease, hypertension, renal disease, presenting to the emergency department via EMS from [facility] with complaints of an elevated troponin. Patient is currently at [facility] for weakness. Patient states she has been having intermittent chest pain for the last 2 days and a troponin level that was drawn today came back elevated. Patient states she has been coughing for the last 2 days and states her chest pain worsens with this cough. She denies chest pain presently. She denies any fever, abdominal pain. She does admit to mild shortness of breath. She has no other complaints at this time. Upon arrival to the ER, patient's vital signs are stable, 97% on 2 L. (Stephany Wolfe) - Related Data Home Medications Medication Instructions Recorded Confirmed Gabapentin [Neurontin] 100 mg PO BID 11/14/15 05/27/19 Furosemide [Lasix] 40 mg PO BID 03/22/16 05/27/19 Warfarin Sodium [Coumadin] 1 mg PO [id number] 08/15/16 05/27/19 Acetaminophen Tab [Tylenol] 650 mg PO Q4H PRN 05/27/19 05/27/19 Allopurinol [Zyloprim] 100 mg PO DAILY 05/27/19 05/27/19 Budesonide [Pulmicort] 0.5 mg INHALATION RT-BID 05/27/19 05/27/19 Budesonide/Formoterol Fumarate 2 puff INHALATION RT-BID 05/27/19 05/27/19 [Symbicort 80-4.5 Mcg Inhaler] Docusate [Colace] 200 mg PO BID 05/27/19 05/27/19 Ezetimibe/Simvastatin [Vytorin 1 tab PO HS 05/27/19 05/27/19 10-10 mg] Ipratropium-Albuterol Nebulize 3 ml INHALATION RT-QID PRN 05/27/19 05/27/19 [Duoneb 0.5 mg-3 mg/3 ml Soln] LORazepam [Ativan] 0.5 mg PO BID 05/27/19 05/27/19 Previous Rx's Medication Instructions Recorded Aspirin 81 mg PO DAILY chew 06/01/19 Atorvastatin [Lipitor] 10 mg PO HS tab 06/01/19 Lisinopril [Zestril] 2.5 mg PO DAILY tab 06/01/19 Metoprolol Tartrate [Lopressor] 50 mg PO BID tab 06/01/19 Nitroglycerin Sl Tabs [Nitrostat] 0.4 mg SUBLINGUAL Q5M PRN tab 06/01/19 Spironolactone [Aldactone] 25 mg PO DAILY tab 06/01/19 Budesonide [Pulmicort] 0.5 mg INHALATION RT-BID ml 06/02/19 Allergies Allergy/AdvReac Type Severity Reaction Status Date / Time No Known Allergies Allergy Verified 05/27/19 15:37 Review of Systems ROS Other: All systems not noted in ROS Statement are negative. <Markus Bardales - Last Filed: 06/09/19 19:07> ROS Other: All systems not noted in ROS Statement are negative. <Stephany Wolfe - Last Filed: 06/09/19 19:31> ROS Statement: Those systems with pertinent positive or pertinent negative responses have been documented in the HPI. Past Medical History Past Medical History: Atrial Fibrillation, Chest Pain / Angina, Heart Failure, COPD, CVA/TIA, Hyperlipidemia, Hypertension, Pneumonia, Renal Disease Additional Past Medical History / Comment(s): COPD, severe MR, severe TR, moderate to severe pulmonary hypertension, chronic atrial fibrillation, hypertension, hyperlipidemia, history of hypercoagulability and and the patient has been maintained on anticoagulation with warfarin, abdominal hernia, diverticulosis and previous history of diverticulitis, history of urinary incontinence, hypertension, history of CVA History of Any Multi-Drug Resistant Organisms: None Reported Past Surgical History: Adenoidectomy, Appendectomy, Breast Surgery, Heart Catheterization, Hysterectomy, Tonsillectomy Additional Past Surgical History / Comment(s): CATARACTS-LENS IMPLANTS, CYSTOCELE/RECTOCELE AND HOLE IN BOWEL REPAIRED, LT HAND THUMB SX, BREAST BIOPSY- NEG, 4 cm AAA, L little toe bone removed, hammer toe surgery Past Anesthesia/Blood Transfusion Reactions: No Reported Reaction Past Psychological History: Anxiety Smoking Status: Former smoker Past Alcohol Use History: None Reported Past Drug Use History: None Reported - Past Family History Father Family Medical History: Cancer, Myocardial Infarction (MS) Additional Family Medical History / Comment(s): ANEURYSMS, BONE CA. AGE 75 FROM ANEURYSM IN HEAD Mother Family Medical History: Congestive Heart Failure (CHF) Additional Family Medical History / Comment(s): AT AGE 84 <Stephany Wolfe - Last Filed: 06/09/19 19:31> General Exam Limitations: physical limitation <Stephany Wolfe - Last Filed: 06/09/19 19:31> - General Exam Comments Initial Comments: GENERAL: Well-appearing, well-nourished and in no acute distress. HEAD: Atraumatic, normocephalic. EYES: Pupils equal round and reactive to light, extraocular movements intact, sclera anicteric, conjunctiva are normal. ENT: TMs normal, nares patent, oropharynx clear without exudates. Moist mucous membranes. NECK: Normal range of motion, supple without lymphadenopathy or JVD. LUNGS: Breath sounds clear to auscultation bilaterally and equal. No wheezes rales or rhonchi. HEART: Irregular rate and rhythm without murmurs, rubs or gallops. ABDOMEN: Soft, nontender, normoactive bowel sounds. No guarding, no rebound. No masses appreciated. : Deferred EXTREMITIES: Normal range of motion, no pitting or edema. No clubbing or cyanosis. NEUROLOGICAL: Normal speech, normal gait. PSYCH: Normal mood, normal affect. SKIN: Warm, Dry, normal turgor, no rashes or lesions noted. (Stephany Wolfe) Course Vital Signs 06/09/19 16:35 Temperature 98.1 F Pulse Rate 90 Respiratory 16 Rate Blood Pressure 104/68 O2 Sat by Pulse 97 Oximetry Medical Decision Making - Lab Data Result diagrams: 06/09/19 17:40 06/09/19 17:40 <Markus Bardales - Last Filed: 06/09/19 19:07> - Lab Data Result diagrams: 06/09/19 17:40 06/09/19 17:40 <Stephany Wolfe - Last Filed: 06/09/19 19:31> - Medical Decision Making 83-year-old female, I did personally examined this patient she was resting comfortably, no chest pain at the time my evaluation. She had been sent in from the detention with elevated troponin she has chronic troponin elevation however she has been experiencing some intermittent chest pain. She is currently on Coumadin. EKG showing sinus rhythm with no ST segment elevation. Given the abnormal lab, she will be kept for serial cardiac enzymes. Primary care physician has been paged. Patient's primary care physician currently being covered by Dr. Guy, both Dr. Barber and Dr. Guy had been paged, with no call back. Patient will be admitted to on-call [place] emergency department physicians. (Markus Bardales) Patient is an 83-year-old female presenting from [facility] with an elevated troponin. History of A. fib on Coumadin, heart disease. Vitals are stable upon arrival. Patient denies chest pain at this time. States it does increase when she coughs. EKG shows A. fib, no signs of acute ischemia. Labs reveal leukocytosis 17.8, INR is 1.8, troponin remains elevated at 0.334. Kidney function is stable. And shows no signs of infection. Chest x-ray shows no acute process. Patient was started on maintenance fluids, Rocephin, aspirin was given. Case discussed with Dr. Bardales. Patient will be admitted with cardiac consult. Dr. Hanks is accepting. Patient and family is in agreement with this plan of care. (Stephany Wolfe) - Lab Data Lab Results 06/09/19 06/09/19 06/09/19 Range/Units 17:00 17:40 17:40 WBC 17.8 H (3.8-10.6) k/uL RBC 5.26 (3.80-5.40) m/uL Hgb 15.4 (11.4-16.0) gm/dL Hct 50.3 H (34.0-46.0) % MCV 95.6 (80.0-100.0) fL MCH 29.3 (25.0-35.0) pg MCHC 30.6 L (31.0-37.0) g/dL RDW 16.6 H (11.5-15.5) % Plt Count 260 (150-450) k/uL Neutrophils % 81 % Lymphocytes % 10 % Monocytes % 7 % Eosinophils % 1 % Basophils % 0 % Neutrophils # 14.5 H (1.3-7.7) k/uL Lymphocytes # 1.7 (1.0-4.8) k/uL Monocytes # 1.2 H (0-1.0) k/uL Eosinophils # 0.1 (0-0.7) k/uL Basophils # 0.1 (0-0.2) k/uL Hypochromasia Slight Anisocytosis Slight PT 17.4 H (9.0-12.0) sec INR 1.8 H (<1.2) APTT 26.0 (22.0-30.0) sec Sodium (137-145) mmol/L Potassium (3.5-5.1) mmol/L Chloride (98-107) mmol/L Carbon Dioxide (22-30) mmol/L Anion Gap mmol/L BUN (7-17) mg/dL Creatinine (0.52-1.04) mg/dL Est GFR (CKD-EPI)AfAm (>60 ml/min/1.73 sqM) Est GFR (CKD-EPI)NonAf (>60 ml/min/1.73 sqM) Glucose (74-99) mg/dL Calcium (8.4-10.2) mg/dL Magnesium (1.6-2.3) mg/dL Total Bilirubin (0.2-1.3) mg/dL AST (14-36) U/L ALT (4-34) U/L Alkaline Phosphatase (38-126) U/L Troponin I (0.000-0.034) ng/mL NT-Pro-B Natriuret Pep pg/mL Total Protein (6.3-8.2) g/dL Albumin (3.5-5.0) g/dL Urine Color Yellow Urine Appearance Clear (Clear) Urine pH 7.0 (5.0-8.0) Ur Specific [place] 1.011 (1.001-1.035) Urine Protein Negative (Negative) Urine Glucose (UA) Negative (Negative) Urine Ketones Negative (Negative) Urine Blood Negative (Negative) Urine Nitrite Negative (Negative) Urine Bilirubin Negative (Negative) Urine Urobilinogen <2.0 (<2.0) mg/dL Ur Leukocyte Esterase Negative (Negative) 06/09/19 06/09/19 06/09/19 Range/Units 17:40 17:40 17:40 WBC (3.8-10.6) k/uL RBC (3.80-5.40) m/uL Hgb (11.4-16.0) gm/dL Hct (34.0-46.0) % MCV (80.0-100.0) fL MCH (25.0-35.0) pg MCHC (31.0-37.0) g/dL RDW (11.5-15.5) % Plt Count (150-450) k/uL Neutrophils % % Lymphocytes % % Monocytes % % Eosinophils % % Basophils % % Neutrophils # (1.3-7.7) k/uL Lymphocytes # (1.0-4.8) k/uL Monocytes # (0-1.0) k/uL Eosinophils # (0-0.7) k/uL Basophils # (0-0.2) k/uL Hypochromasia Anisocytosis PT (9.0-12.0) sec INR (<1.2) APTT (22.0-30.0) sec Sodium 138 (137-145) mmol/L Potassium 4.6 (3.5-5.1) mmol/L Chloride 98 (98-107) mmol/L Carbon Dioxide 35 H (22-30) mmol/L Anion Gap 5 mmol/L BUN 39 H (7-17) mg/dL Creatinine 1.09 H (0.52-1.04) mg/dL Est GFR (CKD-EPI)AfAm 55 (>60 ml/min/1.73 sqM) Est GFR (CKD-EPI)NonAf 48 (>60 ml/min/1.73 sqM) Glucose 66 L (74-99) mg/dL Calcium 8.5 (8.4-10.2) mg/dL Magnesium 2.7 H (1.6-2.3) mg/dL Total Bilirubin 0.6 (0.2-1.3) mg/dL AST 71 H (14-36) U/L ALT 71 H (4-34) U/L Alkaline Phosphatase 105 (38-126) U/L Troponin I 0.334 H* (0.000-0.034) ng/mL NT-Pro-B Natriuret Pep 2110 pg/mL Total Protein 5.8 L (6.3-8.2) g/dL Albumin 3.3 L (3.5-5.0) g/dL Urine Color Urine Appearance (Clear) Urine pH (5.0-8.0) Ur Specific [place] (1.001-1.035) Urine Protein (Negative) Urine Glucose (UA) (Negative) Urine Ketones (Negative) Urine Blood (Negative) Urine Nitrite (Negative) Urine Bilirubin (Negative) Urine Urobilinogen (<2.0) mg/dL Ur Leukocyte Esterase (Negative) - EKG Data EKG Comments: Ventricular rate 88, QRS 92, QTC 462, A. fib, and completely right BBB, ST and T-wave abnormalities. Similar to previous EKG on 05/28/2019. (Stephany Wolfe) Disposition <Markus Bardales - Last Filed: 06/09/19 19:07> Is patient prescribed a controlled substance at d/c from ED?: No Decision Date: 06/09/19 Decision Time: 19:19 <Stephany Wolfe - Last Filed: 06/09/19 19:31> Clinical Impression: Chest pain, Elevated troponin, Leukocytosis Disposition: ADMITTED IP TO THIS [facility] Condition: Stable Referrals: Henrique Barber MD [Primary Care Provider] - 1-2 days
[2019-06-09 17:49] LABS: Anisocytosis Slight; Basophils # (A) 0.1 k/uL (0-0.2); Basophils % (A) 0 %; Eosinophils # (A) 0.1 k/uL (0-0.7); Eosinophils % (A) 1 %; HCT 50.3 % (34.0-46.0); HGB 15.4 gm/dL (11.4-16.0); Hypochromasia Slight; Lymphocytes # (A) 1.7 k/uL (1.0-4.8); Lymphocytes % (A) 10 %; MCH 29.3 pg (25.0-35.0); MCHC 30.6 g/dL (31.0-37.0); MCV 95.6 fL (80.0-100.0); Mean Platelet Volume 7.8; Monocytes # (A) 1.2 k/uL (0-1.0); Monocytes % (A) 7 %; Neutrophils # (A) 14.5 k/uL (1.3-7.7); Neutrophils % (A) 81 %; Platelet Count 260 k/uL (150-450); RBC 5.26 m/uL (3.80-5.40); RDW 16.6 % (11.5-15.5); WBC 17.8 k/uL (3.8-10.6)
[2019-06-09 17:58] LABS: INR 1.8 (<1.2); Prothrombin Time 17.4 sec (9.0-12.0)
[2019-06-09 18:05] LABS: Albumin 3.3 g/dL (3.5-5.0); Calcium 8.5 mg/dL (8.4-10.2); Magnesium 2.7 mg/dL (1.6-2.3); Potassium 4.6 mmol/L (3.5-5.1); Total Bilirubin 0.6 mg/dL (0.2-1.3); Total Protein 5.8 g/dL (6.3-8.2)
--- NOTE | 2019-06-09 18:10 | XR ---
EXAMINATION TYPE: XR chest 2V DATE OF EXAM: 06/09/2019 COMPARISON: 06/01/2019 HISTORY: Chest pain TECHNIQUE: FINDINGS: There is no heart failure nor confluent pneumonic infiltrate. Thoracic aorta is atheromatou s. There are chest leads. Costophrenic angles are clear. The bony thorax appears intact. IMPRESSION: No active cardiopulmonary disease. Cardiomegaly. Atheromatous aorta. Minimal pleural reac tion at the lung bases has cleared compared to old exam.. There is pulmonary congestive changes reji red to old exam.
[2019-06-09] MEDS ORDERED: SODIUM CHLORIDE 0.9% 1,000 ML IV STA (18:58)
[2019-06-09 19:03] LABS: Appearance,Urine Clear (Clear); Bilirubin,Urine Negative (Negative); Blood,Urine Negative (Negative); Color,Urine Yellow; Glucose,Urine (UA) Negative (Negative); Ketones,Urine Negative (Negative); Leukocyte Esterase,Urine Negative (Negative); Nitrite,Urine Negative (Negative); Protein,Urine Negative (Negative); Specific Gravity,Urine 1.011 (1.001-1.035); Urobilinogen,Urine <2.0 mg/dL (<2.0)
[2019-06-09] MEDS ORDERED: NITROGLYCERIN SL TABS 0.4 MG TAB SUBLINGUAL PRN (19:15)
[2019-06-09 21:28] LABS: Glucose,Whole Blood 82 mg/dL (75-99)
[2019-06-10 06:47] LABS: Cholesterol 87 mg/dL (<200); HDL Cholesterol 33 mg/dL (40-60); LDL Cholesterol,Calculated 34 mg/dL (0-99); Triglycerides 101 mg/dL (<150)
--- NOTE | 2019-06-10 08:40 | P.CRDCN ---
History of Present Illness Consult date: 06/10/19 Requesting physician: Henrique Barber Reason for Consult (text): chest pain, elevated troponin Chief complaint: chest pain History of present illness: Supplies an 83-year-old male patient who follows with Dr. Orozco in the office. She has a past medical history of chronic persistent atrial fibrillation, COPD, prior CVA, hyperlipidemia, hypertension. She does have a history of cardiac catheterization in 2015 which showed normal coronaries at that time. Was recently discharged from the hospital to [facility] for rehab. At that time she was admitted with complaints of dizziness and falling at home. At that time, BNP level was 3390 and troponins were elevated at 0.61, 0.41 and 0.5 with an elevated plasma lactic acid level. Troponin elevation at that time was thought to be secondary to A. fib with RVR as well as possible underlying sepsis. Echocardiogram at that time showed moderately impaired LV systolic function with an ejection fraction between 35-40% with mid inferior septal, apical lateral, apical inferior and apical septal LV wall motion hypokinesis, severely dilated LA, mild to moderately enlarged RV, moderately enlarged RA, moderate to severe mitral regurgitation, severe tricuspid regurgitation, and severe pulmonary hypertension with an RVSP of 63.84 mmHg. Echocardiogram done in 2019 did show normal LV systolic function with moderate to severe MR, [id number] TR and mild to moderate pulmonary hypertension with RVSP of 42 mmHg. She presents this admission with complaints of left chest pain that worsens with palpation, deep inspiration and coughing. Troponins were drawn as an outpatient and came back to be elevated with levels of 0.351, 0.334, 0.267 and 0.304. EKG on admission showed atrial fibrillation with nonspecific ST-T wave changes that are similar to previous. Laboratory values on admission showed white blood cell count of 17,800, INR 1.8, BUN 39, creatinine 1.09, magnesium 2.7, and NT proBNP 2110. Chest x-ray on admission showed no active cardiopulmonary disease, cardiomegaly, atheromatous aorta, minimal pleural reaction at the lung bases has cleared compared to old exam, pulmonary congestive changes compared to old exam. Upon examination, patient is resting comfortably in bed. She does complain of a cough that is nonproductive and wheezing but denies complaints of significant shortness of breath, orthopnea or PND. She denies complaints of edema, palpitations, dizziness, lightheadedness or syncope. She does complain of left chest wall discomfort at rest that worsens with palpation, coughing and deep breathing. Past Medical History Past Medical History: Atrial Fibrillation, Chest Pain / Angina, Heart Failure, COPD, CVA/TIA, Hyperlipidemia, Hypertension, Pneumonia, Renal Disease Additional Past Medical History / Comment(s): COPD, severe MR, severe TR, moderate to severe pulmonary hypertension, chronic atrial fibrillation, hypertension, hyperlipidemia, history of hypercoagulability and and the patient has been maintained on anticoagulation with warfarin, abdominal hernia, diverticulosis and previous history of diverticulitis, history of urinary incontinence, hypertension, history of CVA History of Any Multi-Drug Resistant Organisms: None Reported Past Surgical History: Adenoidectomy, Appendectomy, Breast Surgery, Heart Catheterization, Hysterectomy, Tonsillectomy Additional Past Surgical History / Comment(s): CATARACTS-LENS IMPLANTS, CYSTOCELE/RECTOCELE AND HOLE IN BOWEL REPAIRED, LT HAND THUMB SX, BREAST BIOPSY- NEG, 4 cm AAA, L little toe bone removed, hammer toe surgery Past Anesthesia/Blood Transfusion Reactions: No Reported Reaction Past Psychological History: Anxiety Additional Psychological History / Comment(s): related to procedure Smoking Status: Never smoker Past Alcohol Use History: None Reported Additional Past Alcohol Use History / Comment(s): 1/2 PPD Past Drug Use History: None Reported - Past Family History Father Family Medical History: Cancer, Myocardial Infarction ([place]) Additional Family Medical History / Comment(s): ANEURYSMS, BONE CA. AGE 75 FROM ANEURYSM IN HEAD Mother Family Medical History: Congestive Heart Failure (CHF) Additional Family Medical History / Comment(s): AT AGE 84 Medications and Allergies Home Medications Medication Instructions Recorded Confirmed Type Furosemide [Lasix] 40 mg PO BID@0800,1700 03/22/16 06/09/19 History Acetaminophen Tab [Tylenol] 650 mg PO Q4H PRN 05/27/19 06/09/19 History Allopurinol [Zyloprim] 100 mg PO DAILY@0800 05/27/19 06/09/19 History Budesonide/Formoterol Fumarate 2 puff INHALATION RT-BID 05/27/19 06/09/19 History [Symbicort 80-4.5 Mcg Inhaler] Ipratropium-Albuterol Nebulize 3 ml INHALATION RT-QID PRN 05/27/19 06/09/19 History [Duoneb 0.5 mg-3 mg/3 ml Soln] LORazepam [Ativan] 0.5 mg PO BID 05/27/19 06/09/19 History Metoprolol Tartrate [Lopressor] 50 mg PO BID tab 06/01/19 06/09/19 Rx Nitroglycerin Sl Tabs [Nitrostat] 0.4 mg SUBLINGUAL Q5M PRN tab 06/01/19 06/09/19 Rx Budesonide [Pulmicort] 0.5 mg INHALATION RT-BID ml 06/02/19 06/09/19 Rx Aspirin 81 mg PO DAILY@169906/09/19 06/09/19 History Atorvastatin [Lipitor] 10 mg PO HS@209906/09/19 06/09/19 History Bisacodyl [Dulcolax] 10 mg RECTAL DAILY PRN 06/09/19 06/09/19 History Docusate [Colace] 200 mg PO BID@0800,1700 06/09/19 06/09/19 History Ezetimibe [Zetia] 10 mg PO HS@209906/09/19 06/09/19 History Lactose-Reduced Food [Ensure Plus] 120 ml PO TID@0800,1200,1700 06/09/19 06/09/19 History Lisinopril [Zestril] 2.5 mg PO DAILY@0800 06/09/19 06/09/19 History Magnesium Hydroxide [Milk of 2,400 mg PO DAILY PRN 06/09/19 06/09/19 History Magnesia Concentrate] Na Phos,M-B/Na Phos,Di-Ba [Fleet 133 ml RECTAL DAILY PRN 06/09/19 06/09/19 History Adult] Simvastatin 10 mg PO HS@209906/09/19 06/09/19 History Spironolactone [Aldactone] 25 mg PO DAILY@0800 06/09/19 06/09/19 History Trolamine Salicylate [Myoflex] 1 applic TOPICAL BID 06/09/19 06/09/19 History Warfarin Sodium [Jantoven] 2 mg PO DAILY@1700 06/09/19 06/09/19 History traMADol HCl [Ultram] 50 mg PO Q6HR PRN 06/09/19 06/09/19 History Allergies Allergy/AdvReac Type Severity Reaction Status Date / Time No Known Allergies Allergy Verified 05/27/19 15:37 Physical Exam Vitals: Vital Signs Temp Pulse Pulse Resp BP Pulse Ox 06/10/19 04:00 88 24 06/10/19 00:00 88 24 06/09/19 21:26 98.4 F 88 20 97 06/09/19 20:11 98 06/09/19 19:30 80 16 113/81 100 06/09/19 19:00 78 17 101/88 100 06/09/19 18:30 16 115/79 100 06/09/19 18:00 89 19 100 06/09/19 17:30 109/71 06/09/19 17:00 80 17 104/68 06/09/19 16:35 98.1 F 90 16 104/68 97 06/09/19 16:30 21 97 Intake and Output 06/09/19 06/10/19 06/10/19 22:59 06:59 14:59 Intake Total 400 Output Total 300 300 Balance -300 100 Intake: Intake, IV Titration 400 Amount Sodium Chloride 0.9% 1, 400 000 ml @ 50 mls/hr IV . Q20H STA Rx#:[id number] Output: Urine 300 300 Other: # Voids 1 1 1 Weight 71.214 kg 72.7 kg PHYSICAL EXAMINATION: HEENT: Head is atraumatic, normocephalic. Pupils equal, round. Neck is supple. There is no elevated jugular venous pressure. HEART EXAMINATION: Heart sounds irregularly irregular, S1 and S2 with systolic murmur. CHEST EXAMINATION: Lungs reveal coarse wheezing throughout with scattered rhonchi. No chest wall tenderness is noted on palpation or with deep breathing. ABDOMEN: Soft, nontender. Bowel sounds are heard. No organomegaly noted. EXTREMITIES: 2+ peripheral pulses with no evidence of peripheral edema and no calf tenderness noted. NEUROLOGIC patient is awake, alert and oriented x3. . Results 06/09/19 17:40 06/09/19 17:40 Cardiac Enzymes 06/09/19 06/09/19 06/09/19 Range/Units 17:40 17:40 23:17 AST 71 H (14-36) U/L Troponin I 0.334 H* 0.267 H* (0.000-0.034) ng/mL 06/10/19 Range/Units 05:29 AST (14-36) U/L Troponin I 0.304 H* (0.000-0.034) ng/mL Coagulation 06/09/19 Range/Units 17:40 PT 17.4 H (9.0-12.0) sec APTT 26.0 (22.0-30.0) sec Lipids 06/10/19 Range/Units 05:29 Triglycerides 101 (<150) mg/dL Cholesterol 87 (<200) mg/dL HDL Cholesterol 33 L (40-60) mg/dL CBC 06/09/19 Range/Units 17:40 WBC 17.8 H (3.8-10.6) k/uL RBC 5.26 (3.80-5.40) m/uL Hgb 15.4 (11.4-16.0) gm/dL Hct 50.3 H (34.0-46.0) % Plt Count 260 (150-450) k/uL Comprehensive Metabolic Panel 06/09/19 Range/Units 17:40 Sodium 138 (137-145) mmol/L Potassium 4.6 (3.5-5.1) mmol/L Chloride 98 (98-107) mmol/L Carbon Dioxide 35 H (22-30) mmol/L BUN 39 H (7-17) mg/dL Creatinine 1.09 H (0.52-1.04) mg/dL Glucose 66 L (74-99) mg/dL Calcium 8.5 (8.4-10.2) mg/dL AST 71 H (14-36) U/L ALT 71 H (4-34) U/L Alkaline Phosphatase 105 (38-126) U/L Total Protein 5.8 L (6.3-8.2) g/dL Albumin 3.3 L (3.5-5.0) g/dL Current Medications Generic Name Dose Route Start Last Admin Trade Name Freq PRN Reason Stop Dose Admin Aspirin 81 mg 06/10/19 17:00 Aspirin PO DAILY@1700 [facility] Atorvastatin Calcium 10 mg 06/10/19 21:00 Lipitor PO HS@2100 GENIE Ezetimibe 10 mg 06/10/19 21:00 Zetia PO HS@2100 [facility] Furosemide 40 mg 06/10/19 17:00 Lasix PO BID@0800,1700 [facility] Sodium Chloride 1,000 mls @ 50 mls/hr 06/09/19 18:58 06/09/19 23:17 Saline 0.9% IV 06/10/19 14:57 50 mls/hr .Q20H STA Administration Lisinopril 2.5 mg 06/11/19 08:00 Zestril PO DAILY@0800 [facility] Metoprolol Tartrate 50 mg 06/10/19 09:00 Lopressor PO BID [facility] Nitroglycerin 0.4 mg 06/09/19 19:15 Nitrostat SUBLINGUAL Q5M PRN Chest Pain Spironolactone 25 mg 06/11/19 08:00 Aldactone PO DAILY@0800 [facility] Warfarin Sodium 2 mg 06/10/19 17:00 Coumadin PO DAILY@1700 [facility] Protocol Intake and Output 06/09/19 06/10/19 06/10/19 22:59 06:59 14:59 Intake Total 400 Output Total 300 300 Balance -300 100 Intake: Intake, IV Titration 400 Amount Sodium Chloride 0.9% 1, 400 000 ml @ 50 mls/hr IV . Q20H STA Rx#:[id number] Output: Urine 300 300 Other: # Voids 1 1 1 Weight 71.214 kg 72.7 kg 06/09/19 17:40 06/09/19 17:40 Assessment and Plan Assessment: #1 atypical chest pain, at rest and worsened with palpation, coughing and deep inspiration #2 elevated troponin #3 chronic persistent atrial fibrillation, anticoagulated on Coumadin #4 cardiomyopathy, ejection fraction 35-40%, with evidence of segmental wall motion abnormalities and normal coronaries in 2014 #5 severe pulmonary hypertension #6 mitral and tricuspid regurgitation #7 COPD Plan: From cardiology's perspective, we will give the patient one dose of IV Lasix now. Continue to monitor renal function and electrolytes. The patient's chest pain is atypical but due to decreased ejection fraction and segmental wall motion abnormalities on recent echocardiogram she may require cardiac ca theterization for definitive diagnosis. We will continue to follow the patient closely and provide further recommendations accordingly. ROAD DRIVER note has been reviewed, I agree with a documented findings and plan of care. Patient was seen and examined.
[2019-06-10] MEDS: METOPROLOL TARTRATE 50 MG TAB PO SCH ×2 (08:45→20:12)
[2019-06-10] MEDS ORDERED: ASPIRIN 325 MG TAB PO SCH (09:00)
[2019-06-10] MEDS ORDERED: ACETAMINOPHEN TAB 325 MG TAB PO PRN (10:48)
[2019-06-10] MEDS ORDERED: NITROGLYCERIN SL TABS 0.4 MG TAB SUBLINGUAL PRN (10:48)
[2019-06-10] MEDS ORDERED: BISACODYL 10 MG SUPP RECTAL PRN (10:48)
[2019-06-10] MEDS ORDERED: traMADol 50 MG TAB PO PRN (10:48)
[2019-06-10] MEDS ORDERED: POLYETHYLENE GLYCOL 3350 17 GM POWD.PACK PO PRN (10:57)
--- NOTE | 2019-06-10 11:28 | XR ---
EXAMINATION TYPE: XR chest 2V DATE OF EXAM: 06/10/2019 COMPARISON: Chest x-ray from yesterday. HISTORY: Left-sided chest pain. TECHNIQUE: Frontal and lateral views of the chest are obtained. FINDINGS: There is chronic parenchymal change without suspicious focal air space opacity, pleural effusion, or pneumothorax seen. The cardiac silhouette size remains enlarged with atherosclerotic and ectatic thoracic aorta. The osseous structures remain demineralize d. Multilevel spurring the spine is redemonstrated. Overlying EKG leads again seen. IMPRESSION: Chronic changes and cardiomegaly without acute pulmonary process.
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
[2019-06-10] MEDS ORDERED: FUROSEMIDE 10 MG/ML 4 ML VIAL IV STA (11:55)
[2019-06-10] MEDS ORDERED: NON FORMULARY DRUG (Lactose-Reduced Food [Ensure Plus] 120 ML) PO SCH (12:00)
[2019-06-10] MEDS: ASPIRIN 81 MG PO SCH (15:55)
[2019-06-10] MEDS: DOCUSATE 100 MG CAP PO SCH (15:55)
[2019-06-10] MEDS: FUROSEMIDE 40 MG TAB PO SCH (15:55)
[2019-06-10] MEDS ORDERED: WARFARIN 2 MG TAB PO SCH (17:00)
[2019-06-10] MEDS: BUDESONIDE 0.5 MG/2 ML NEBU INHALATION SCH (19:21)
[2019-06-10] MEDS: EZETIMIBE 10 MG TAB PO SCH (20:12)
[2019-06-10] MEDS: LORazepam 0.5 MG TAB PO SCH (20:12)
[2019-06-10] MEDS: ATORVASTATIN 10 MG TAB PO SCH (20:13)
[2019-06-10] MEDS ORDERED: SIMVASTATIN 10 MG PO SCH (21:00)
[2019-06-10] MEDS: TROLAMINE SALICYLATE TOPICAL SCH (22:56)
[2019-06-11 06:08] LABS: Anisocytosis Slight; Basophils # (A) 0.1 k/uL (0-0.2); Basophils % (A) 1 %; Eosinophils # (A) 0.1 k/uL (0-0.7); Eosinophils % (A) 1 %; HCT 44.8 % (34.0-46.0); Hypochromasia Slight; Lymphocytes # (A) 1.3 k/uL (1.0-4.8); Lymphocytes % (A) 10 %; MCH 29.6 pg (25.0-35.0); MCHC 31.1 g/dL (31.0-37.0); MCV 95.2 fL (80.0-100.0); Mean Platelet Volume 7.8; Monocytes # (A) 1.1 k/uL (0-1.0); Monocytes % (A) 9 %; Neutrophils % (A) 78 %; Platelet Count 191 k/uL (150-450); RBC 4.71 m/uL (3.80-5.40); RDW 16.7 % (11.5-15.5); WBC 12.8 k/uL (3.8-10.6)
[2019-06-11] MEDS: PANTOPRAZOLE 40 MG TABLET PO SCH (06:17)
[2019-06-11 06:33] LABS: Calcium 8.2 mg/dL (8.4-10.2); Potassium 4.5 mmol/L (3.5-5.1)
[2019-06-11] MEDS: IPRATROPIUM-ALBUTEROL 3 ML NEB INHALATION PRN (07:44)
[2019-06-11] MEDS: BUDESONIDE 0.5 MG/2 ML NEBU INHALATION SCH ×2 (07:45→19:55)
[2019-06-11] MEDS: ALLOPURINOL 100 MG TAB PO SCH (08:57)
[2019-06-11] MEDS: LORazepam 0.5 MG TAB PO SCH ×2 (08:57→21:10)
[2019-06-11] MEDS: DOCUSATE 100 MG CAP PO SCH ×2 (08:57→15:49)
[2019-06-11] MEDS: SPIRONOLACTONE 25 MG TAB PO SCH (08:57)
[2019-06-11] MEDS: LISINOPRIL 2.5 MG TAB PO SCH (08:57)
[2019-06-11] MEDS: FUROSEMIDE 40 MG TAB PO SCH ×2 (08:57→15:49)
[2019-06-11] MEDS: METOPROLOL TARTRATE 50 MG TAB PO SCH ×2 (08:58→21:10)
[2019-06-11] MEDS ORDERED: SODIUM CHLORIDE 0.9% 1,000 ML in EMPTY BAG 1 BAG IV ONE (11:55)
--- NOTE | 2019-06-11 11:55 | P.PN ---
Subjective This is a pleasant 83-year-old female past medical history significant for chronic persistent atrial fibrillation on long-term anticoagulation, history of CVA, hyperlipidemia and hypertension. She has a history of cardiac catheterization in 2015 revealing normal coronary arteries. She is seen and examined sitting up on the edge of the bed in no acute distress. She denies symptoms of exertional chest pain. She has ongoing shortness of breath. No dizziness or palpitations. Laboratory data reviewed, WBC 12.8, hemoglobin 14, platelets 191, sodium 137, potassium 4.5, creatinine 1.01 with a GFR of 52. Blood pressure 95/54 heart rate 92 afebrile maintaining oxygen saturation on nasal cannula. Currently maintained on Coumadin, aspirin 81 mg daily, atorvastatin 10 mg at bedtime, Zetia 10 mg at bedtime, Lasix 40 mg by mouth twic e a day, lisinopril 2.5 mg daily, Lopressor 50 mg twice a day and Aldactone 25 mg daily. GENERAL: Well-appearing, well-nourished and in no acute distress. NECK: Supple without JVD or thyromegaly. LUNGS: Scattered rhonchi. Faint bibasilar rales. No wheezes. Respiration equal and unlabored. HEART: Irregular rate and rhythm with systolic ejection murmur at the base, no rubs or gallops. S1 and S2 heard. EXTREMITIES: Normal range of motion, no edema. No clubbing or cyanosis. Peripheral pulses intact. ASSESSMENT Chest pain, atypical. Discomfort is worse with palpation coughing and deep insp iration. Per the daughter she did recently suffer a fall on the left side of her torso. Chronically elevated troponin with segmental wall motion abnormalities and ejection fraction 35-40%. Chronic persistent atrial fibrillation on long-term anticoagulation with controlled ventricular rates Cardiomyopathy Pulmonary hypertension Valvular heart disease with mitral and tricuspid regurgitation COPD PLAN Given the wall motion abnormalities on recent echocardiogram and ongoing episodes of chest pain we will proceed with cardiac catheterization. I have discussed the risks, benefits and alternative therapies for the above-mentioned procedure and for both sedation/analgesia as well as necessary blood product administration, if indicated, as they pertain to this patient. The patient has indicated understanding and acceptance of the risks and procedures discussed. Questions have been answered appropriately and she is agreeable to move forward with the above stated procedure. She will be nothing by mouth after midnight tonight for procedure tomorrow. Nurse Practitioner note has been reviewed, I agree with a documented findings and plan of care. Patient was seen and examined. Objective - Vital Signs Vital signs: Vital Signs Temp 97.5 F L 06/11/19 08:00 Pulse 92 06/11/19 08:00 Resp 20 06/11/19 08:00 BP 95/54 06/11/19 08:00 Pulse Ox 96 06/11/19 08:00 Intake & Output 06/10/19 06/11/19 06/11/19 17:59 06:59 18:59 Intake Total 240 Output Total Balance 240 Weight Intake: Intake, IV Titration Amount Sodium Chloride 0.9% 1, 000 ml @ 50 mls/hr IV . Q20H STA Rx#:[id number] Oral 240 Output: Urine Other: # Voids - Labs CBC & Chem 7: 06/11/19 05:43 06/11/19 05:43 Labs: Abnormal Lab Results - Last 24 Hours (Table) 06/11/19 06/11/19 Range/Units 05:43 05:43 WBC 12.8 H (3.8-10.6) k/uL RDW 16.7 H (11.5-15.5) % Neutrophils # 10.0 H (1.3-7.7) k/uL Monocytes # 1.1 H (0-1.0) k/uL Carbon Dioxide 32 H (22-30) mmol/L BUN 30 H (7-17) mg/dL Calcium 8.2 L (8.4-10.2) mg/dL
[2019-06-11 12:14] LABS: INR 1.6 (<1.2)
[2019-06-11 12:37] VITALS: RESP 18
--- NOTE | 2019-06-11 12:44 | P.PN ---
Subjective Progress Note Date: 06/11/19 (Cardiac cath next weekCardiology) Principal diagnosis: #1 chest pain left sided. #2 chest x-ray done twice with the attention to detail on the left sided report negative. And no comment on the ribs. #3 atrial fibrillation controlled response #4 ischemic cardiomyopathy with the advanced valvular disease and pulmonary hypertension. #5 history of hypertension currently her blood pressure 95/54. Has been monitored by manager [employer] fund. #6 underlying chronic respiratory failure on oxygen. #7 COPD with advanced stage. #8 leukocytosis on admission. #Abnormal troponin high with the or the progression underlying coronary artery disease, atherosclerotic heart disease and unstable angina could not be excluded as well as supply and demand with the atrial fibrillation however it is fairly controlled with the heart rate 92-88. This is a progress note date of service 06/11/[address] Barber. Patient seen evaluated [id number] and discussed with her the current plan as placed by the PA for cardiology , Chrissy Zaragoza. Patient still in atrial fibrillation medication adjustment by cardiology to accommodate her congestive heart failure and improvement of systolic and diastolic function. Vital sign, temperature 97.5 F oral Heart rate 92/m and regular, Respiratory rate 20 per minute with the shortness of breath, Blood pressure 95/54 with a mean 67. Oxygen saturation 96% nasal cannula on 4 L. Patient is conscious alert oriented eating her lunch on the bedside, the left chest pain not bothering her at this time however with the palpation is tender, with the possibility that she may fall and called her that to contusion, excluded the hip fracture with the toe x-ray done i in this hospitalization. She is receiving inhalation therapy was updraft. Her white count is improving however she received only one Rocephin 1 g IV piggyback On the exam: HEENT negative, pupils equal reactive, oropharynx able to eat and swallow with no abnormalities, hearing she can hear me normally Neck supple no JVD no thyromegaly no lymphadenopathy trachea midline. On the chest clear with the scattered wheezes with the underlying chronic COPD and she is on oxygen Heart irregular irregularity with the underlying abnormal troponin 1 and ischemic cardiomyopathy and valvular heart disease and poor ejection fraction and patient will be waiting for cardiac cath next week Abdomen soft positive bowel sounds no organ enlargement. Extremities no edema. Pulses. And she had fungal infection of the toenail chronic. Neurologically stable. Assessment With the chest pain as well as troponin elevation, unstable angina and ischemic heart disease is considered until ruled out with cardiac catheterization. Underlying COPD chronic with the association was chronic respiratory failure and oxygen dependent. Plan: #1 continue the current adjustment. Cardiology,. #2 agreed with the plan placed by the cardiology Objective - Vital Signs Vital signs: Vital Signs Temp 97.5 F L 06/11/19 08:00 Pulse 92 06/11/19 08:00 Resp 20 06/11/19 08:00 BP 95/54 06/11/19 08:00 Pulse Ox 96 06/11/19 08:00 Intake & Output 06/10/19 06/11/19 06/11/19 17:59 06:59 18:59 Intake Total 240 Output Total Balance 240 Weight Intake: Intake, IV Titration Amount Sodium Chloride 0.9% 1, 000 ml @ 50 mls/hr IV . Q20H STA Rx#:[id number] Oral 240 Output: Urine Other: # Voids - Labs CBC & Chem 7: 06/11/19 05:43 06/11/19 05:43 Labs: Abnormal Lab Results - Last 24 Hours (Table) 06/11/19 06/11/19 06/11/19 Range/Units 05:42 05:43 05:43 WBC 12.8 H (3.8-10.6) k/uL RDW 16.7 H (11.5-15.5) % Neutrophils # 10.0 H (1.3-7.7) k/uL Monocytes # 1.1 H (0-1.0) k/uL PT 16.0 H (9.0-12.0) sec INR 1.6 H (<1.2) Carbon Dioxide 32 H (22-30) mmol/L BUN 30 H (7-17) mg/dL Calcium 8.2 L (8.4-10.2) mg/dL
[2019-06-11] MEDS: ASPIRIN 81 MG PO SCH (15:49)
[2019-06-11] MEDS: TROLAMINE SALICYLATE TOPICAL SCH (17:06)
[2019-06-11] MEDS: ATORVASTATIN 10 MG TAB PO SCH (21:10)
[2019-06-11] MEDS: EZETIMIBE 10 MG TAB PO SCH (21:10)
[2019-06-12] MEDS ORDERED: ASPIRIN 325 MG TAB PO ONE (06:00)
[2019-06-12 06:16] LABS: Glucose,Whole Blood 78 mg/dL (75-99)
[2019-06-12 06:27] LABS: Anisocytosis Slight; Basophils % (A) 0 %; Eosinophils # (A) 0.1 k/uL (0-0.7); Eosinophils % (A) 1 %; HCT 45.1 % (34.0-46.0); HGB 14.2 gm/dL (11.4-16.0); Hypochromasia Slight; Lymphocytes # (A) 1.4 k/uL (1.0-4.8); Lymphocytes % (A) 9 %; MCH 30.1 pg (25.0-35.0); MCHC 31.4 g/dL (31.0-37.0); MCV 95.9 fL (80.0-100.0); Monocytes # (A) 1.2 k/uL (0-1.0); Monocytes % (A) 8 %; Neutrophils # (A) 12.2 k/uL (1.3-7.7); Neutrophils % (A) 81 %; Platelet Count 189 k/uL (150-450); RBC 4.71 m/uL (3.80-5.40); RDW 16.7 % (11.5-15.5); WBC 15.1 k/uL (3.8-10.6)
[2019-06-12] MEDS: ALLOPURINOL 100 MG TAB PO SCH (06:29)
[2019-06-12] MEDS: METOPROLOL TARTRATE 50 MG TAB PO SCH ×2 (06:29→20:29)
[2019-06-12] MEDS: LISINOPRIL 2.5 MG TAB PO SCH (06:29)
[2019-06-12] MEDS: PANTOPRAZOLE 40 MG TABLET PO SCH (06:29)
[2019-06-12 06:32] LABS: Prothrombin Time 19.6 sec (9.0-12.0)
[2019-06-12 06:35] LABS: Calcium 8.6 mg/dL (8.4-10.2); Potassium 5.1 mmol/L (3.5-5.1)
[2019-06-12] MEDS ORDERED: fentaNYL (PF) 50 MCG/ML 2 ML AMP ONE (08:39)
[2019-06-12] MEDS ORDERED: HEPARIN SODIUM 1,000 UN/ML (10ML VL) ONE (08:39)
[2019-06-12] MEDS ORDERED: VERAPAMIL 2.5 MG/ML 2 ML AMP ONE (08:39)
[2019-06-12] MEDS ORDERED: LIDOCAINE 1% INJ 10MG/ML (20 ML MDV) ONE (08:39)
[2019-06-12] MEDS: BUDESONIDE 0.5 MG/2 ML NEBU INHALATION SCH ×2 (09:03→19:27)
[2019-06-12] MEDS ORDERED: IV FLUID CONTINUATION 1,000 ML IV ONE (09:14)
[2019-06-12] MEDS ORDERED: fentaNYL (PF) 50 MCG/ML 2 ML AMP IVP ONE (09:14)
[2019-06-12] MEDS ORDERED: LIDOCAINE 1% INJ 10MG/ML (20 ML MDV) SQ ONE (09:14)
[2019-06-12] MEDS ORDERED: VERAPAMIL SYRINGE (5 MG/10 ML) INTRAARTER ONE (09:16)
[2019-06-12] MEDS ORDERED: HEPARIN SODIUM 1,000 UN/ML (10ML VL) IV ONE (09:23)
[2019-06-12] MEDS ORDERED: IOPAMIDOL-370 125ML BTL INJ ONE (09:26)
[2019-06-12] MEDS ORDERED: RX INFO: IV CONTRAST WAS GIVEN 1 EACH MISC MISCELLANE PRN (09:35)
[2019-06-12] MEDS ORDERED: SODIUM CHLORIDE 0.9% 1,000 ML IV SCH (09:45)
[2019-06-12] MEDS: LORazepam 0.5 MG TAB PO SCH ×2 (09:58→20:29)
[2019-06-12] MEDS: DOCUSATE 100 MG CAP PO SCH ×2 (09:58→16:21)
[2019-06-12] MEDS: SPIRONOLACTONE 25 MG TAB PO SCH (09:58)
[2019-06-12] MEDS: FUROSEMIDE 40 MG TAB PO SCH ×2 (09:58→16:27)
--- NOTE | 2019-06-12 10:16 | CC ---
CARDIAC CATHETERIZATION REPORT Mrs. Virk is an 83-year-old female with known history of chronic persistent atrial fibrillation, history of cerebrovascular accident, who was noted recently to have a cardiomyopathy. She presented with symptoms of chest discomfort and had mild troponin elevation in view of that, recommendation made regarding cardiac catheterization the procedures risks and complications were discussed with the patient who is in full understanding and agreement. PROCEDURE: Patient was brought to geophysical laboratory director in a fasting semi-sedated state after receiving fentanyl and Benadryl and achieving moderate conscious sedated state. Using Xylocaine anesthesia and Seldinger technique, a 6-Tamazight sheath was introduced in the right radial artery. Selective right and left coronary angiography was performed using 5- Tamazight 3.5 right and left Anton catheter, multiple views of coronary artery including hemiaxial views obtained. Following that, a 5-Tamazight tight pigtail catheter was introduced in the left ventricle and pressures were calculated. Following that, catheter and sheaths were removed. Hemostasis was obtained with deployment of a TR band. There was no immediate complication. Patient is returned to her room in stable condition. Of note, the patient received 3500 units of intravenous heparin and intra- arterial verapamil she there was no immediate complication. FINDINGS: LEFT MAIN: This is a large-sized vessel, bifurcating into left circumflex, left anterior descending artery. Left main coronary artery has no evidence of high-grade stenosis. LEFT ANTERIOR DESCENDING ARTERY: This is a large vessel, reaching toward the apex with a wraparound apex segment giving rise to a diagonal branch of moderate caliber. The proximal LAD is calcified has a 20% to 30% plaque without any evidence of high-grade stenosis. LEFT CIRCUMFLEX: This is a nondominant vessel, giving rise to a large obtuse marginal branch. The left circumflex as well as branches have no evidence of obstructive coronary artery disease. RIGHT CORONARY ARTERY: This is a large dominant vessel bifurcating distally into PDA and posterolateral segment branches the mid right coronary artery has about a 20% plaque. The rest of the vessel has no high-grade stenosis. LEFT VENTRICULOGRAM: Left ventriculogram as not performed. HEMODYNAMICS: There was no gradient across the aortic valve the left ventricle end- diastolic pressure was 12-16 mmHg. CONCLUSION: 1. Mildly calcified coronary arteries. 2. Mild disease in the LAD and the right coronary artery. RECOMMENDATION: In view of finding anatomy, I recommend continue medical therapy with the aggressive coronary risk modifications that have been initiated. Those findings and recommendation were discussed with the patient and her family and they are in full understanding and agreement. MMODL / IJN: [id number] /
--- NOTE | 2019-06-12 10:22 | LTR ---
DATE OF SERVICE: 06/12/2019 RE: Sandie Virk Dear Dr. Barber; I had the pleasure to perform cardiac catheterization on Mrs. Virk at [facility] on June 12, 2019 and a full copy of the procedure note will be forwarded to you. In brief, she was found to have mild obstructive disease with no evidence of high-grade stenosis and based on those findings, I have recommended to continue medical therapy with aggressive coronary risk modifications being initiated and thank you again for allowing me to participate in this patient's personal care. Please feel free to call for any questions. Sincerely yours, MD ARMANDO MccrackenL / DAVIDN: [id number] /
--- NOTE | 2019-06-12 13:04 | CDI ---
Documentation Clarification Form Date: 06/12/2019 1300 CDS: Arianne Fuentes RN, CCDS Admit Date: 06/09/2019 1844 Patient Name: Sandie Virk ATTENTION: The Clinical Documentation Specialists (CDI) and [facility] Coding Staff appreciate your assistance in clarifying documentation. Please respond to the clarification below the line at the bottom and electronically sign. The CDI & [facility] Coding staff will review the response and follow-up if needed. Please note: Queries are made part of the Legal Health Record. If you have any questions, please contact the author of this message via ITS. Dr. Barber CHF is documented in the H&P and progress notes. History/Risk Factors: Chronic CHF, ischemic cardiomyopathy, atrial Fib, VHD, Acute on chronic renal failure stage 3, COPD, Pulmonary HTN Clinical Indicators: 06/09 H&P: "she has pulmonary disease and hypoxemia was chronic respiratory failure and chronic congestive heart failure biventricular with improvement of the ejection fraction. Physical exam: Chronic congestive heart failure, elevated troponin, and elevated pro-BMP. Transaminase abnormalities secondary to the chronic congestive heart failure with the poor ejection fraction 30-40% with the valvular heart disease and severe tricuspid regurg. VS/Pulse OX: Temp 98.1, HR 90, rr 16, B/P 104/68, Spo2 97% 2L NC BNP: 2110 Echocardiogram Results:06/09 Cardiology: "Echocardiogram at that time showed moderately impaired LV systolic function with an ejection fraction between 35- 40% with mid inferior septal, apical lateral, apical inferior and apical septal LV wall motion hypokinesis, severely dilated LA, mild to moderately enlarged RV, moderately enlarged RA, moderate to severe mitral regurgitation, severe tricuspid regurgitation, and severe pulmonary hypertension with an RVSP of 63.84 mmHg." 06/09/2019 Chest X Ray: No active cardiopulmonary disease. Cardiomegaly. Atheromatous aorta. Minimal pleural reaction at the lung bases has cleared compared to old exam. There is pulmonary congestive changes Treatment: Lasix 40 mg IVP x 1 dose Lasix 40 mg PO BID Aldactone 25 mg PO QD Lopressor 50 mg PO BID In your professional opinion, can you please clarify the acuity and type of CHF if known? Systolic Heart Failure: Acute Chronic Acute on Chronic Diastolic Heart Failure: Acute Chronic Acute on Chronic Systolic & Diastolic Heart Failure: Acute Chronic Acute on Chronic Heart Failure Unable to Determine Other, please specify (Last Revision: July 2017) chronic congestive heart failure systolic and diastolic MTDD
--- NOTE | 2019-06-12 15:19 | PN ---
PROGRESS NOTE Patient age [age] years old, white female, , date of 1935 and her room number 358, on the [facility] cardiology monitor. DATE OF SERVICE: 06/12/2019 She is NO CODE. She is 5 foot 1 inch, 72.1 kg, BSA 1.71 and BMI 30.0 kg/cm2. ALLERGIES: Unknown. This is dictation by Dr. Sunil MD [facility] in regard of the patient followup visit. Seen today, evaluated, status post cardiac cath and I was told that the patient has no obstruction for her coronary. However, the full letter is not available and on the review of the cardiac catheterization and Dr. Rendon, he has found that she had a mild obstructive disease with no evidence of high-grade steatosis. Based on the finding, he recommended to continue the medical therapy and with aggressive coronary artery modification and that is end of the note. As well as recommended to be discharged tomorrow and will be discharged to [facility] where she came from. Currently, the cardiac catheterization finding and they stated that she had the left main, large sized vessel and bifurcates to left circumflex and left anterior descending artery and the left main coronary artery has no evidence of high-grade stenosis. The left anterior descending artery is a large vessel and reaching toward the apex and wrapped around the apex segment giving diagonal branch of the moderate caliber and the proximal LAD calcified has 20%-30% plaque without evidence of high grade. The circumflex indicating a non dominant vessel in giving rise to large obtuse margin branch and the left circumflex branch with no evidence of obstructive. The right coronary artery is a large dominant vessel, bifurcation distally into the PDA and the posterolateral segment branch and mild compiled coronary artery was 20% plaque and rest of the vessel with no high-grade stenosis. The left ventriculogram was not performed and the end-diastolic pressure gradient was 12-16 mmHg and conclusion that is mild calcified coronary artery and mild disease in the LAD and right coronary artery and he did advise medical therapy and aggressive coronary risk modification and recommendation was to the family. No further added treatment. The patient is going to stay today and tomorrow will be released by the Cardiology before we discharge the patient. Leukocytosis of unknown etiology VITAL SIGNS: Temperature 98 F oral and pulse rate 90 and respiratory rate 18 and irregular with the nonlabored. Her blood pressure was ranging between 117/77 to 105/56 with the mean pressure 90-72. Her oxygen on 4 L, 98%. LABORATORY: On 06/11, today at the time of dictation, her white count is 15.1 and hematocrit is 14.2 with the underlying MCV 95.9, and the platelet count 189. She had still the neutrophils high and her protime is 19.6, INR 2, which is satisfactory on the Coumadin. She has electrolytes also is #1 sodium 138, potassium 5.1, and after they increased her Aldactone to 25 mg by Cardiology. Her carbon dioxide is 35 and anion gap is 1, and BUN of 23, creatinine 0.93 and her EGFR is 58. Her blood sugar 84 and POC blood sugar 78 and her calcium was 8.6, as well as her troponin last time done on June 09 and was 0.304. Her lipid profile was done as a same date 06/10/2019, and triglyceride was 101, cholesterol 87, and LDL 34 with the HDL 33. I did discuss the results of the lab with the patient as well and she understands that nothing to be done with the normal coronary artery. PHYSICAL EXAMINATION: Conscious, alert, oriented, in no acute respiratory distress, but she has a chronic bronchitis and the heart was irregular irregularities, atrial fibrillation with a controlled ventricular response. The abdomen is soft, positive bowel sounds. EXTREMITIES: No edema and positive pulses. ASSESSMENT: Stable with the underlying probably chronic bronchitis with the history of respiratory failure on oxygen. PLAN: We will start her on Rocephin 1 g q. daily and empirically with the leukocytosis. MMODL / IJN: [id number] /
[2019-06-12] MEDS ORDERED: WARFARIN 2 MG TAB PO SCH (18:00)
[2019-06-12] MEDS: ATORVASTATIN 10 MG TAB PO SCH (20:29)
[2019-06-12] MEDS: EZETIMIBE 10 MG TAB PO SCH (20:30)
[2019-06-13 04:46] VITALS: TEMP 98.3
[2019-06-13] MEDS: PANTOPRAZOLE 40 MG TABLET PO SCH (06:20)
[2019-06-13 06:29] LABS: Anisocytosis Slight; Basophils # (A) 0.1 k/uL (0-0.2); Basophils % (A) 0 %; Eosinophils # (A) 0.1 k/uL (0-0.7); Eosinophils % (A) 1 %; HCT 44.3 % (34.0-46.0); HGB 13.8 gm/dL (11.4-16.0); Lymphocytes # (A) 1.2 k/uL (1.0-4.8); Lymphocytes % (A) 10 %; MCH 29.4 pg (25.0-35.0); MCHC 31.2 g/dL (31.0-37.0); MCV 94.4 fL (80.0-100.0); Mean Platelet Volume 7.6; Monocytes # (A) 0.8 k/uL (0-1.0); Monocytes % (A) 7 %; Neutrophils # (A) 10.1 k/uL (1.3-7.7); Neutrophils % (A) 82 %; Platelet Count 197 k/uL (150-450); RBC 4.69 m/uL (3.80-5.40); RDW 16.6 % (11.5-15.5); WBC 12.3 k/uL (3.8-10.6)
[2019-06-13 06:38] LABS: INR 1.7 (<1.2); Prothrombin Time 16.5 sec (9.0-12.0)
[2019-06-13 06:40] LABS: Calcium 8.4 mg/dL (8.4-10.2); Potassium 4.4 mmol/L (3.5-5.1)
[2019-06-13] MEDS: BUDESONIDE 0.5 MG/2 ML NEBU INHALATION SCH (08:15)
[2019-06-13] MEDS: IPRATROPIUM-ALBUTEROL 3 ML NEB INHALATION PRN (08:15)
[2019-06-13] MEDS: METOPROLOL TARTRATE 50 MG TAB PO SCH (08:24)
[2019-06-13] MEDS: FUROSEMIDE 40 MG TAB PO SCH (08:24)
[2019-06-13] MEDS: LISINOPRIL 2.5 MG TAB PO SCH (08:24)
[2019-06-13] MEDS: SPIRONOLACTONE 25 MG TAB PO SCH (08:24)
[2019-06-13] MEDS: DOCUSATE 100 MG CAP PO SCH (08:24)
[2019-06-13] MEDS: ALLOPURINOL 100 MG TAB PO SCH (08:24)
[2019-06-13] MEDS: LORazepam 0.5 MG TAB PO SCH (08:24)
--- NOTE | 2019-06-13 11:55 | P.PN ---
Subjective Progress Note Date: 06/13/19 This is a pleasant 83-year-old female past medical history significant for chronic persistent atrial fibrillation on long-term anticoagulation, history of CVA, hyperlipidemia and hypertension. She has a history of cardiac catheterization in 2014 revealing normal coronary arteries. Presented to the hospital on this admission with symptoms of ongoing shortness of breath. She was noted to have abnormality in troponin which is chronically elevated for the patient. Patient underwent a cardiac catheterization yesterday by Dr. Rendon which revealed mildly calcified coronary arteries with mild disease in the LAD and RCA, medical therapy advised. Patient was seen and examined this morning, giana manjinder doing well. Denied any chest discomfort and her breathing was stable. Objective - Vital Signs Vital signs: Vital Signs Temp 98.3 F 06/13/19 04:00 Pulse 93 06/13/19 11:17 Resp 18 06/13/19 11:17 BP 100/61 06/13/19 08:00 Pulse Ox 93 L 06/13/19 08:00 Intake & Output 06/12/19 06/13/19 06/13/19 18:59 06:59 18:59 Intake Total 340 540 240 Output Total 300 Balance 40 540 240 Weight 71.6 kg Intake: IV 100 Oral 240 540 240 Output: Urine 300 Other: Voiding Method Bedside Commode # Voids 1 1 1 # Bowel Movements 0 - Exam GENERAL: Well-appearing, well-nourished and in no acute distress. NECK: Supple without JVD or thyromegaly. LUNGS: Scattered rhonchi. Faint bibasilar rales. No wheezes. Respiration equal and unlabored. HEART: Irregular rate and rhythm with systolic ejection murmur at the base, no rubs or gallops. S1 and S2 heard. EXTREMITIES: Normal range of motion, no edema. No clubbing or cyanosis. Peripheral pulses intact. Right radial site clean and dry, good distal pulse. - Labs CBC & Chem 7: 06/13/19 06:00 06/13/19 06:00 Labs: Abnormal Lab Results - Last 24 Hours (Table) 06/13/19 06/13/19 06/13/19 Range/Units 06:00 06:00 06:00 WBC 12.3 H (3.8-10.6) k/uL RDW 16.6 H (11.5-15.5) % Neutrophils # 10.1 H (1.3-7.7) k/uL PT 16.5 H (9.0-12.0) sec INR 1.7 H (<1.2) Carbon Dioxide 32 H (22-30) mmol/L BUN 21 H (7-17) mg/dL Assessment and Plan Plan: Assessment and plan: #1 atypical chest pain, at rest and worsened with palpation, coughing and deep inspiration #2 elevated troponin, not suggestive of acute coronary syndrome #3 chronic persistent atrial fibrillation, anticoagulated on Coumadin #4 nonischemic cardiomyopathy, ejection fraction 35-40%, with evidence of segmental wall motion abnormalities and normal coronaries in 2015 #5 severe pulmonary hypertension #6 mitral and tricuspid regurgitation #7 COPD Plan Patient underwent a cardiac catheterization yesterday which did not reveal any significantly obstructive coronary artery disease. From cardiology's perspective, patient may be able to be discharged home today. We'll make her a follow-up appointment in the office to see Dr. Rendon. DNP note has been reviewed, I agree with a documented findings and plan of care. Patient was seen and examined.
[2019-06-13 12:10] VITALS: BP 102/65; PULSE 79
--- NOTE | 2019-06-13 14:50 | DS ---
DISCHARGE SUMMARY DATE OF SERVICE: 06/13/2019. She is 83 years old, white female. NEW DATA: NO CODE. She is 5 foot 1 inch' 71.6 kg. BSA 1.71 m2. She has a BMI of 29.8 kg/m2. Her allergy is unknown. FINAL DIAGNOSES: 1. Underlying coronary artery disease, mild by the cardiac catheterization with the recommendation medical therapy. 2. Atypical chest pain with the elevated troponin not suggestive of acute coronary artery syndrome. 3. Chronic resistant atrial fibrillation with the underlying ejection fraction 35 - 40 with the underlying cardiomyopathy. 4. Severe pulmonary hypertension. 5. Mitral and tricuspid severe regurgitation. 6. Line is a COPD with the chronic respiratory failure and oxygen dependent. 7. Procedure done during her hospitalization: Cardiac catheterization done by Dr. Rendon. 8. Dr. Rendon did see the patient today and cleared her for discharge. 9. Presentation to the emergency room: Patient brought from [facility] with a complain of progressive increase of troponin and a chest pain, left-sided. 10.Patient evaluated by the Cardiology and scheduled for cardiac catheterization and resulted that he had only medical therapy with the underlying full cardiomyopathy with the poor ejection fraction 35%-40% and Dr. Rendon will follow her as well as outpatient in the office. 11.Chronic respiratory failure, oxygen dependent. HOSPITAL COURSE: Patient admitted to the to the 3rd floor, [facility], the Cardiology telemetry unit and with the chest pain and progressive elevation of the troponin and subsequently the patient started on the plan for the cardiac catheterization and which was done yesterday on June 12, 2019. Subsequently, patient stabilized and cleared for discharge today. Patient had history of liquid leukocytosis and at that added to the assessment and that with the assumption that could be associated with the COPD and however, she has no significant exacerbation at this time, and associated could be with the chronic bronchitis and the patient treated with Rocephin during her present for short course and will be followed as outpatient to see if the white count improved by itself without adding any antibiotic and the associated steroid that she had before could be also a contributor factor as well. On the examination today prior to the discharge, the patient seen, discussed with her the plan of care as well as her . He was at bedside. On the physical exam, her temperature was 98.3 F oral and her heart rate is 65, irregular with the atrial fibrillation, persistent. She is on Coumadin anticoagulant 2 mg at bedtime daily and we will be checking her within the next time seen in the office. Her respiratory rate 18 per minute and her blood pressure 111/74 with mean 86. She is on permanent oxygen therapy and she is on 4 L with the pulse ox 96%. Patient at the time of examination on discharge and she is conscious, alert, oriented x3. She can be ambulated by the walker and she is feeling stable and wants to go home, not to the [facility]. Her HEENT, the head was normocephalic, atraumatic. Pupils were equal, reactive. Conjunctivae were pink. Sclerae were nonicteric. Oropharynx was normal. Able to eat and swallow. The neck was supple. No JVD. No thyromegaly. No lymphadenopathy. Trachea midline. The chest was marked improvement clinically with rhonchi and wheezes have been resolved with the increase anteroposterior diameter with ex-smoker in the past. The heart was PMI in the fifth intercostal space outside midclavicular line with the underlying S1, S2 with the muffling with the atrial fibrillation, however, is stable rate. As mentioned, she had decreased ejection fraction with underlying chronic congestive heart failure. Please add that to the diagnosis as well. The abdomen is soft, nontender, positive bowel sounds in 4 quadrants. Extremities, no edema and positive pulses and patient is ambulatory. ASSESSMENT: Patient stable general condition to be discharged and she requested from the nursing management and the discharge nurse that she goes back to her home not to [facility]. She came from [facility]. She was on the rehab unit, but she felt today that she wants to go home and we will transfer her. She will be discharged back to home today with the current medication to be seen in 1-2 days or next week if she elected and follow up with Dr. Rendon and follow up with the visiting nurse of the patient choice. Her last lab was done on 06/11 and she had white count 12.3 and hemoglobin was 13.8 and the hematocrit was 44.3 with the platelet count 197. Her protime done yesterday was 1.7, was subtherapeutic. However, we do not have one done today. But she is on 2 mg of Coumadin and will be checked in the office when she come to the seeing. Her electrolytes showed sodium 138, potassium 4.4, chloride 101, carbon dioxide 32, and BUN of 21 and creatinine was 0.97 with the markedly improvement as her EGFR with the glucose 81 and will be followed as outpatient as mentioned above. MMODL / IJN: [id number] /
--- NOTE | 2019-06-13 17:45 | P.DS ---
Providers Date of admission: 06/09/19 18:44 Expected date of discharge: 06/13/19 (Status post cardiac cath) Attending physician: Henrique Barber Consults: 06/09/19 19:15 Consult Physician Urgent Consulting Provider: Alonzo Johnson Consult Reason/Comments: Chest pain, elevated troponin Do you want consulting provider notified?: Yes Primary care physician: Henrique Barber Admission on 06/09/2019 discharged on 06/13/2019 Home with visiting nurse of family choice. Dictated on the phone number of [phone]. Patient Condition at Discharge: Stable Plan - Discharge Summary Discharge Rx Participant: Yes New Discharge Prescriptions: New Docusate [Colace] 200 mg PO BID@0800,1700 cap Continue Furosemide [Lasix] 40 mg PO BID@0800,1700 Acetaminophen Tab [Tylenol] 650 mg PO Q4H PRN PRN Reason: PAIN/FEVER Allopurinol [Zyloprim] 100 mg PO DAILY@0800 Budesonide/Formoterol Fumarate [Symbicort 80-4.5 Mcg Inhaler] 2 puff INHALATION RT-BID Ipratropium-Albuterol Nebulize [Duoneb 0.5 mg-3 mg/3 ml Soln] 3 ml INHALATION RT-QID PRN PRN Reason: Shortness Of Breath LORazepam [Ativan] 0.5 mg PO BID Metoprolol Tartrate [Lopressor] 50 mg PO BID tab Nitroglycerin Sl Tabs [Nitrostat] 0.4 mg SUBLINGUAL Q5M PRN tab PRN Reason: Chest Pain Budesonide [Pulmicort] 0.5 mg INHALATION RT-BID ml traMADol HCl [Ultram] 50 mg PO Q6HR PRN PRN Reason: Pain Warfarin Sodium [Jantoven] 2 mg PO DAILY@1700 Spironolactone [Aldactone] 25 mg PO DAILY@0800 Simvastatin 10 mg PO HS@2100 Lisinopril [Zestril] 2.5 mg PO DAILY@0800 Ezetimibe [Zetia] 10 mg PO HS@2100 Atorvastatin [Lipitor] 10 mg PO HS@2100 Aspirin 81 mg PO DAILY@1700 Discontinued Magnesium Hydroxide [Milk of Magnesia Concentrate] 2,400 mg PO DAILY PRN PRN Reason: Constipation Lactose-Reduced Food [Ensure Plus] 120 ml PO TID@0800,1200,1700 Na Phos,M-B/Na Phos,Di-Ba [Fleet Adult] 133 ml RECTAL DAILY PRN PRN Reason: Constipation Bisacodyl [Dulcolax] 10 mg RECTAL DAILY PRN PRN Reason: Constipation Docusate [Colace] 200 mg PO BID@0800,1700 Trolamine Salicylate [Myoflex] 1 applic TOPICAL BID Discharge Medication List Furosemide [Lasix] 40 mg PO BID@0800,1700 03/22/16 [History] Acetaminophen Tab [Tylenol] 650 mg PO Q4H PRN 05/27/19 [History] Allopurinol [Zyloprim] 100 mg PO DAILY@0805/27/19 [History] Budesonide/Formoterol Fumarate [Symbicort 80-4.5 Mcg Inhaler] 2 puff INHALATION RT-BID 05/27/19 [History] Ipratropium-Albuterol Nebulize [Duoneb 0.5 mg-3 mg/3 ml Soln] 3 ml INHALATION RT-QID PRN 05/27/19 [History] LORazepam [Ativan] 0.5 mg PO BID 05/27/19 [History] Metoprolol Tartrate [Lopressor] 50 mg PO BID tab 06/01/19 [Rx] Nitroglycerin Sl Tabs [Nitrostat] 0.4 mg SUBLINGUAL Q5M PRN tab 06/01/19 [Rx] Budesonide [Pulmicort] 0.5 mg INHALATION RT-BID ml 06/02/19 [Rx] Aspirin 81 mg PO DAILY@169906/09/19 [History] Atorvastatin [Lipitor] 10 mg PO HS@209906/09/19 [History] Ezetimibe [Zetia] 10 mg PO HS@209906/09/19 [History] Lisinopril [Zestril] 2.5 mg PO DAILY@79906/09/19 [History] Simvastatin 10 mg PO HS@209906/09/19 [History] Spironolactone [Aldactone] 25 mg PO DAILY@0806/09/19 [History] Warfarin Sodium [Jantoven] 2 mg PO DAILY@169906/09/19 [History] traMADol HCl [Ultram] 50 mg PO Q6HR PRN 06/09/19 [History] Docusate [Colace] 200 mg PO BID@0800,1700 cap 06/13/19 [Rx] Follow up Appointment(s)/Referral(s): Emerita Rendon MD [STAFF PHYSICIAN] - 1 Week (Spoke to turkey boner. Office will call with appointment time) [facility] Visiting Nurse, [NON-STAFF] - Henrique Barber MD [Primary Care Provider] - 06/15/19 2:20 pm () Patient Instructions/Handouts: *Surgery [facility] - After Heart Catheterization - Sanitation Inspector Instructions, Heart Healthy Diet (DC) Discharge Disposition: HOME WITH HOME HEALTH SERVICES
[2019-06-13] MEDS ORDERED: WARFARIN 2 MG TAB PO SCH (18:00)
== END 2019-06-13 15:25 | disposition home health service (06) | DRG 287 ==
LOC: EC 16:21 → 3SCARD 18:44
PROVIDERS: ADMIT Internal Medicine; ATTEND Internal Medicine
PROC: 4A023N7 Measurement of Cardiac Sampling and Pressure, Left Heart, Percutaneous Approach (ICD-10-PCS; principal; 2019-06-12 11:05)
PROC: B2111ZZ Fluoroscopy of Multiple Coronary Arteries using Low Osmolar Contrast (ICD-10-PCS; principal; 2019-06-12 11:05)
DX: R07.89 Other chest pain (principal); I13.0 Hypertensive heart and chronic kidney disease with heart failure and stage 1 through stage 4 chronic kidney disease, or unspecified chronic kidney disease; J96.10 Chronic respiratory failure, unspecified whether with hypoxia or hypercapnia; I48.19 Other persistent atrial fibrillation; I50.42 Chronic combined systolic (congestive) and diastolic (congestive) heart failure; I27.20 Pulmonary hypertension, unspecified; B35.1 Tinea unguium; E78.5 Hyperlipidemia, unspecified; D72.829 Elevated white blood cell count, unspecified; N18.3 Chronic kidney disease, stage 3 (moderate); I25.10 Atherosclerotic heart disease of native coronary artery without angina pectoris; I25.84 Coronary atherosclerosis due to calcified coronary lesion; I25.5 Ischemic cardiomyopathy; I08.1 Rheumatic disorders of both mitral and tricuspid valves; J44.9 Chronic obstructive pulmonary disease, unspecified; K46.9 Unspecified abdominal hernia without obstruction or gangrene; R32 Unspecified urinary incontinence; F41.9 Anxiety disorder, unspecified; M15.9 Polyosteoarthritis, unspecified; M10.9 Gout, unspecified; K57.90 Diverticulosis of intestine, part unspecified, without perforation or abscess without bleeding; Z99.81 Dependence on supplemental oxygen; Z79.82 Long term (current) use of aspirin; Z79.51 Long term (current) use of inhaled steroids; Z79.01 Long term (current) use of anticoagulants; Z79.899 Other long term (current) drug therapy; Z86.2 Personal history of diseases of the blood and blood-forming organs and certain disorders involving the immune mechanism; Z87.891 Personal history of nicotine dependence; Z86.73 Personal history of transient ischemic attack (TIA), and cerebral infarction without residual deficits; Z87.01 Personal history of pneumonia (recurrent); Z90.49 Acquired absence of other specified parts of digestive tract; Z90.710 Acquired absence of both cervix and uterus; Z98.42 Cataract extraction status, left eye; Z98.41 Cataract extraction status, right eye; Z96.1 Presence of intraocular lens; Z98.890 Other specified postprocedural states; Z82.49 Family history of ischemic heart disease and other diseases of the circulatory system; Z80.8 Family history of malignant neoplasm of other organs or systems
CPT/HCPCS: 36415; 71046; 80048; 80053; 80061; 81003; 83735; 83880; 84484; 85025; 85610; 85730; 93005; 93458; 94640; 94760; 96360; 96361; 99285

== ENCOUNTER → 2019-07-27 | Outpatient (CLI) | payer MEDICARE ==
[2019-07-27 08:51] LABS: Anisocytosis Slight; Basophils # (A) 0.1 k/uL (0-0.2); Basophils % (A) 1 %; Eosinophils # (A) 0.1 k/uL (0-0.7); Eosinophils % (A) 1 %; HCT 47.8 % (34.0-46.0); HGB 14.1 gm/dL (11.4-16.0); Hypochromasia Marked; Lymphocytes # (A) 1.4 k/uL (1.0-4.8); Lymphocytes % (A) 16 %; MCH 28.3 pg (25.0-35.0); MCHC 29.4 g/dL (31.0-37.0); MCV 96.2 fL (80.0-100.0); Mean Platelet Volume 7.5; Monocytes # (A) 0.6 k/uL (0-1.0); Monocytes % (A) 7 %; Neutrophils # (A) 6.3 k/uL (1.3-7.7); Neutrophils % (A) 74 %; Platelet Count 284 k/uL (150-450); RBC 4.97 m/uL (3.80-5.40); RDW 16.8 % (11.5-15.5); WBC 8.6 k/uL (3.8-10.6)
[2019-07-27 10:06] LABS: Erythrocyte Sedimentation Rate 14 mm/hr (0-20)
[2019-07-27 15:39] LABS: African American GFR (CKD) 60.3 (60.0-200.0); Albumin 3.9 g/dL (3.80-4.90); Albumin/Globulin Ratio 1.86 (1.60-3.17); Anion Gap 10.6 mmol/L (4.00-12.00); Calcium 9.8 mg/dL (8.7-10.3); Carbon Dioxide 27.4 mmol/L (21.6-31.8); Chol/HDL Ratio 2.63; Globulin 2.1 g/dL (1.6-3.3); LDL Cholesterol,Calculated 37.8 mg/dL (0.0-131.0); Magnesium 2.2 mg/dL (1.5-2.4); Non-African American GFR(CKD) 52.1 (60.0-200.0); Phosphorus 3.5 mg/dL (2.4-5.1); Potassium 5.8 mmol/L (3.5-5.5); Total Bilirubin 1.5 mg/dL (0.3-1.2); VLDL Calculation 19.2 mg/dL (5.00-40.00)
== END | disposition home or self-care (01) ==
LOC: LABWHC1 08:07
PROVIDERS: ATTEND Internal Medicine
DX: N18.3 Chronic kidney disease, stage 3 (moderate) (principal); D63.1 Anemia in chronic kidney disease; J44.9 Chronic obstructive pulmonary disease, unspecified; E78.5 Hyperlipidemia, unspecified; E21.3 Hyperparathyroidism, unspecified; E66.9 Obesity, unspecified; E55.9 Vitamin D deficiency, unspecified
CPT/HCPCS: 36415; 80053; 80061; 82306; 83735; 83970; 84100; 84550; 85025; 85652

== ENCOUNTER → 2019-08-03 | Outpatient (CLI) | payer MEDICARE ==
[2019-08-03 09:48] LABS: Appearance,Urine Turbid (Clear); Bacteria,Urine Rare /hpf; Bilirubin,Urine Negative (Negative); Blood,Urine Moderate (Negative); Calcium Oxalate Crystals,Urine Many /hpf; Color,Urine Dark Brown; Glucose,Urine (UA) Negative (Negative); Hyaline Casts,Urine 39 /lpf (0-2); Ketones,Urine Negative (Negative); Leukocyte Esterase,Urine Large (Negative); Mucus,Urine Few /hpf; Nitrite,Urine Negative (Negative); PH, Urine 5.5 (5.0-8.0); Protein,Urine 2+ (Negative); RBC,Urine 74 /hpf (0-5); Specific Gravity,Urine 1.025 (1.001-1.035); Squamous Epithelial Cell,Urine 10 /hpf (0-4); WBC,Urine >182 /hpf (0-5)
== END | disposition home or self-care (01) ==
LOC: LABWHC1 08:59
PROVIDERS: ATTEND Internal Medicine
DX: D64.9 Anemia, unspecified (principal); J44.9 Chronic obstructive pulmonary disease, unspecified; E78.5 Hyperlipidemia, unspecified; E21.3 Hyperparathyroidism, unspecified; N18.3 Chronic kidney disease, stage 3 (moderate); E55.9 Vitamin D deficiency, unspecified; E66.9 Obesity, unspecified
CPT/HCPCS: 36415; 81001; 82272

== ENCOUNTER → 2019-08-11 | Outpatient (CLI) | payer MEDICARE ==
[2019-08-11 10:42] LABS: Anisocytosis Slight; Basophils # (A) 0.1 k/uL (0-0.2); Basophils % (A) 1 %; Eosinophils # (A) 0.1 k/uL (0-0.7); Eosinophils % (A) 1 %; HCT 50.1 % (34.0-46.0); HGB 14.5 gm/dL (11.4-16.0); Hypochromasia Marked; INR 1.5 (<1.2); Lymphocytes # (A) 1.2 k/uL (1.0-4.8); Lymphocytes % (A) 11 %; MCH 27.6 pg (25.0-35.0); MCHC 28.9 g/dL (31.0-37.0); MCV 95.6 fL (80.0-100.0); Mean Platelet Volume 7.6; Monocytes # (A) 0.9 k/uL (0-1.0); Monocytes % (A) 8 %; Neutrophils # (A) 8.3 k/uL (1.3-7.7); Neutrophils % (A) 77 %; Platelet Count 273 k/uL (150-450); RBC 5.24 m/uL (3.80-5.40); RDW 16.7 % (11.5-15.5); WBC 10.7 k/uL (3.8-10.6)
[2019-08-11 16:15] LABS: African American GFR (CKD) 53.8 (60.0-200.0); Anion Gap 9.8 mmol/L (4.00-12.00); Calcium 9.5 mg/dL (8.7-10.3); Carbon Dioxide 26.2 mmol/L (21.6-31.8); Non-African American GFR(CKD) 46.4 (60.0-200.0); Potassium 5.2 mmol/L (3.5-5.5)
== END | disposition home or self-care (01) ==
LOC: LABWHC1 09:29
PROVIDERS: ATTEND Internal Medicine
DX: E87.5 Hyperkalemia (principal); I48.91 Unspecified atrial fibrillation; N39.0 Urinary tract infection, site not specified
CPT/HCPCS: 36415; 80048; 85025; 85610

== ENCOUNTER → 2019-09-08 | Outpatient (CLI) | payer MEDICARE ==
[2019-09-09 00:07] LABS: African American GFR (CKD) 60.3 (60.0-200.0); Albumin 3.7 g/dL (3.80-4.90); Albumin/Globulin Ratio 1.95 (1.60-3.17); Anion Gap 10.3 mmol/L (4.00-12.00); Calcium 9.5 mg/dL (8.7-10.3); Carbon Dioxide 23.7 mmol/L (21.6-31.8); Globulin 1.9 g/dL (1.6-3.3); Non-African American GFR(CKD) 52.1 (60.0-200.0); Potassium 4.6 mmol/L (3.5-5.5); Total Bilirubin 1.2 mg/dL (0.3-1.2); Total Protein 5.6 g/dL (6.2-8.2)
== END | disposition home or self-care (01) ==
LOC: LABWHC1 10:12
PROVIDERS: ATTEND Internal Medicine Interventional Cardiology
DX: R06.00 Dyspnea, unspecified (principal)
CPT/HCPCS: 36415; 80053

== ENCOUNTER 2019-09-09 20:44 | Inpatient (IN) | payer MEDICARE ==
[2019-09-09] MEDS ORDERED: SODIUM CHLORIDE 0.9% 1,000 ML IV STA (20:47)
--- NOTE | 2019-09-09 20:58 | ED ---
SOB HPI - General Chief Complaint: Shortness of Breath Stated Complaint: Weakness, ANA Time Seen by Provider: 09/09/19 20:47 Source: patient, EMS, RN notes reviewed, old records reviewed Mode of arrival: EMS Limitations: no limitations - History of Present Illness Initial Comments: This is an 81-year-old female with a complex and complicated medical history presents today for evaluation of severe shortness of breath patient has no improvement at home despite doing increasing treatments and breathing treatments, patient has multiple hospital admissions for similar complaint. Patient denying current chest pain no no recent fevers she does have increased cough and congestion does feel like her heart is racing and palpitations. No recent travel history no significantly known sick contacts MD Complaint: shortness of breath, cough -: days(s) Severity: moderate Severity scale (1-10): 7 Consistency: constant Improves With: oxygen, rest Worsens With: exertion Known History Of: COPD, congestive heart failure Context: recent URI, recent illness Associated Symptoms: diaphoresis Treatments Prior to Arrival: none - Related Data Home Medications Medication Instructions Recorded Confirmed Allopurinol [Zyloprim] 100 mg PO DAILY@0800 05/27/19 09/10/19 Ipratropium-Albuterol Nebulize 3 ml INHALATION RT-QID PRN 05/27/19 09/10/19 [Duoneb 0.5 mg-3 mg/3 ml Soln] Diltiazem HCl 60 mg PO DAILY 09/10/19 09/10/19 Ezetimibe/Simvastatin [Vytorin 1 tab PO DAILY 09/10/19 09/10/19 10-10 mg] Gabapentin [Neurontin] 100 mg PO DAILY 09/10/19 09/10/19 Warfarin Sodium [Coumadin] 1 mg PO TUTHSA 09/10/19 09/11/19 Albuterol Sulfate [Accuneb] 3 ml INHALATION RT-TID PRN 09/11/19 09/11/19 Previous Rx's Medication Instructions Recorded Metoprolol Tartrate [Lopressor] 50 mg PO BID tab 06/01/19 Budesonide [Pulmicort] 0.5 mg INHALATION RT-BID ml 06/02/19 Acetaminophen Tab [Tylenol] 650 mg PO Q4H PRN tab 09/14/19 Aspirin 81 mg PO DAILY@1700 chew 09/14/19 Atorvastatin [Lipitor] 10 mg PO HS@2100 tab 09/14/19 Docusate [Colace] 200 mg PO BID@0800,1700 cap 09/14/19 Furosemide [Lasix] 40 mg PO BID@0800,1700 tab 09/14/19 HYDROcodone/APAP 5-325MG [[place] 1 each PO Q6HR PRN tab 09/14/19 5-325] LORazepam [Ativan] 0.5 mg PO BID tab 09/14/19 Lisinopril [Zestril] 2.5 mg PO DAILY@0800 #30 tab 09/14/19 Pantoprazole [Protonix] 40 mg PO AC-[id number] tablet. 09/14/19 Spironolactone [Aldactone] 25 mg PO DAILY@0800 #30 tab 09/14/19 Allergies Allergy/AdvReac Type Severity Reaction Status Date / Time No Known Allergies Allergy Verified 09/10/19 13:11 Review of Systems ROS Statement: Those systems with pertinent positive or pertinent negative responses have been documented in the HPI. ROS Other: All systems not noted in ROS Statement are negative. Past Medical History Past Medical History: Atrial Fibrillation, Chest Pain / Angina, Heart Failure, COPD, CVA/TIA, Hyperlipidemia, Hypertension, Pneumonia, Renal Disease Additional Past Medical History / Comment(s): COPD, severe MR, severe TR, moderate to severe pulmonary hypertension, chronic atrial fibrillation, hypertension, hyperlipidemia, history of hypercoagulability and and the patient has been maintained on anticoagulation with warfarin, abdominal hernia, diverticulosis and previous history of diverticulitis, history of urinary incontinence, hypertension, history of CVA History of Any Multi-Drug Resistant Organisms: None Reported Past Surgical History: Adenoidectomy, Appendectomy, Breast Surgery, Heart Catheterization, Hysterectomy, Tonsillectomy Additional Past Surgical History / Comment(s): CATARACTS-LENS IMPLANTS, CYSTOCELE/RECTOCELE AND HOLE IN BOWEL REPAIRED, LT HAND THUMB SX, BREAST BIOPSY- NEG, 4 cm AAA, L little toe bone removed, hammer toe surgery Past Anesthesia/Blood Transfusion Reactions: No Reported Reaction Past Psychological History: No Psychological Hx Reported Smoking Status: Never smoker Past Alcohol Use History: None Reported Past Drug Use History: None Reported - Past Family History Father Family Medical History: Cancer, Myocardial Infarction ([place]) Additional Family Medical History / Comment(s): ANEURYSMS, BONE CA. AGE 75 FROM ANEURYSM IN HEAD Mother Family Medical History: Congestive Heart Failure (CHF) Additional Family Medical History / Comment(s): AT AGE 84 General Exam Limitations: no limitations General appearance: alert, in no apparent distress Head exam: Present: atraumatic, normocephalic, normal inspection Eye exam: Present: normal appearance, PERRL, EOMI. Absent: scleral icterus, conjunctival injection, periorbital swelling ENT exam: Present: normal exam, mucous membranes moist Neck exam: Present: normal inspection. Absent: tenderness, meningismus, lymphadenopathy Respiratory exam: Present: respiratory distress, wheezes, accessory muscle use, decreased breath sounds, prolonged expiratory. Absent: rales, rhonchi, stridor Cardiovascular Exam: Present: regular rate, normal rhythm, normal heart sounds. Absent: systolic murmur, diastolic murmur, rubs, gallop, clicks GI/Abdominal exam: Present: soft, normal bowel sounds. Absent: distended, tenderness, guarding, rebound, rigid Extremities exam: Present: normal inspection, full ROM, normal capillary refill. Absent: tenderness, pedal edema, joint swelling, calf tenderness Back exam: Present: normal inspection Neurological exam: Present: alert, oriented X3, CN II-XII intact Psychiatric exam: Present: normal affect, normal mood Skin exam: Present: warm, dry, intact, normal color. Absent: rash Course Vital Signs 09/09/19 09/09/19 09/09/19 20:53 22:11 22:22 Temperature 98.1 F Pulse Rate 85 81 80 Respiratory 22 18 18 Rate Blood Pressure 127/78 O2 Sat by Pulse 93 L Oximetry 09/09/19 22:39 Temperature Pulse Rate Respiratory 22 Rate Blood Pressure O2 Sat by Pulse Oximetry - Reevaluation(s) Reevaluation #1: Medical records reviewed Patient presents with significant shortness of breath Patient's symptoms not improved here in the emergency department Medical Decision Making - Medical Decision Making 84 female with significant shortness of breath patient be admitted for multifactorial respiratory distress and hypoxia. She'll be admitted for cardiology and pulmonology evaluation telemetry in current continued monitoring no improvement here in the ER - Lab Data Result diagrams: 09/09/19 21:00 09/13/19 07:17 Lab Results 06/06/20 06/06/20 06/06/20 Range/Units 21:00 21:00 21:00 WBC 8.6 (3.8-10.6) k/uL RBC 5.44 H (3.80-5.40) m/uL Hgb 14.6 (11.4-16.0) gm/dL Hct 49.7 H (34.0-46.0) % MCV 91.5 (80.0-100.0) fL MCH 26.9 (25.0-35.0) pg MCHC 29.3 L (31.0-37.0) g/dL RDW 17.2 H (11.5-15.5) % Plt Count 306 (150-450) k/uL Neutrophils % 71 % Lymphocytes % 16 % Monocytes % 9 % Eosinophils % 2 % Basophils % 1 % Neutrophils # 6.2 (1.3-7.7) k/uL Lymphocytes # 1.4 (1.0-4.8) k/uL Monocytes # 0.8 (0-1.0) k/uL Eosinophils # 0.1 (0-0.7) k/uL Basophils # 0.1 (0-0.2) k/uL Hypochromasia Marked Anisocytosis Slight PT 19.4 H (9.0-12.0) sec INR 2.0 H (<1.2) APTT 29.7 (22.0-30.0) sec D-Dimer 1.66 H (<0.60) mg/L FEU Sodium 139 (137-145) mmol/L Potassium 4.3 (3.5-5.1) mmol/L Chloride 108 H (98-107) mmol/L Carbon Dioxide 21 L (22-30) mmol/L Anion Gap 10 mmol/L BUN 17 (7-17) mg/dL Creatinine 0.92 (0.52-1.04) mg/dL Est GFR (CKD-EPI)AfAm 67 (>60 ml/min/1.73 sqM) Est GFR (CKD-EPI)NonAf 58 (>60 ml/min/1.73 sqM) Glucose 83 (74-99) mg/dL Plasma Lactic Acid Romero (0.7-2.0) mmol/L Calcium 9.6 (8.4-10.2) mg/dL Phosphorus 3.7 (2.5-4.5) mg/dL Magnesium 2.2 (1.6-2.3) mg/dL Total Bilirubin 1.5 H (0.2-1.3) mg/dL AST 23 (14-36) U/L ALT 11 (4-34) U/L Alkaline Phosphatase 95 (38-126) U/L Creatine Kinase 44 (30-135) U/L Troponin I (0.000-0.034) ng/mL NT-Pro-B Natriuret Pep pg/mL Total Protein 6.3 (6.3-8.2) g/dL Albumin 3.6 (3.5-5.0) g/dL TSH 3.660 (0.465-4.680) mIU/L 09/09/19 09/09/19 09/09/19 Range/Units 21:00 21:00 21:00 WBC (3.8-10.6) k/uL RBC (3.80-5.40) m/uL Hgb (11.4-16.0) gm/dL Hct (34.0-46.0) % MCV (80.0-100.0) fL MCH (25.0-35.0) pg MCHC (31.0-37.0) g/dL RDW (11.5-15.5) % Plt Count (150-450) k/uL Neutrophils % % Lymphocytes % % Monocytes % % Eosinophils % % Basophils % % Neutrophils # (1.3-7.7) k/uL Lymphocytes # (1.0-4.8) k/uL Monocytes # (0-1.0) k/uL Eosinophils # (0-0.7) k/uL Basophils # (0-0.2) k/uL Hypochromasia Anisocytosis PT (9.0-12.0) sec INR (<1.2) APTT (22.0-30.0) sec D-Dimer (<0.60) mg/L FEU Sodium (137-145) mmol/L Potassium (3.5-5.1) mmol/L Chloride (98-107) mmol/L Carbon Dioxide (22-30) mmol/L Anion Gap mmol/L BUN (7-17) mg/dL Creatinine (0.52-1.04) mg/dL Est GFR (CKD-EPI)AfAm (>60 ml/min/1.73 sqM) Est GFR (CKD-EPI)NonAf (>60 ml/min/1.73 sqM) Glucose (74-99) mg/dL Plasma Lactic Acid Romero 1.7 (0.7-2.0) mmol/L Calcium (8.4-10.2) mg/dL Phosphorus (2.5-4.5) mg/dL Magnesium (1.6-2.3) mg/dL Total Bilirubin (0.2-1.3) mg/dL AST (14-36) U/L ALT (4-34) U/L Alkaline Phosphatase (38-126) U/L Creatine Kinase (30-135) U/L Troponin I 0.018 (0.000-0.034) ng/mL NT-Pro-B Natriuret Pep 4010 pg/mL Total Protein (6.3-8.2) g/dL Albumin (3.5-5.0) g/dL TSH (0.465-4.680) mIU/L - EKG Data -: EKG Interpreted by Me (EKG is A. fib of 86, QRS 94 QTc 476) - Radiology Data Radiology results: report reviewed (Chest x-rays positive for CHF and pleural effusion), image reviewed Critical Care Time Critical Care Time: Yes Total Critical Care Time: 31 Disposition Clinical Impression: At risk for readmission to hospital, COPD with exacerbation, Acute exacerbation of chronic obstructive airways disease, Acute exacerbation of chronic obstructive pulmonary disease, CHF (congestive heart failure), Atrial fibrillation with rapid ventricular response Disposition: ADMITTED IP TO THIS HOSP Condition: Fair Is patient prescribed a controlled substance at d/c from ED?: No
--- NOTE | 2019-09-09 21:31 | XR ---
EXAMINATION TYPE: XR chest 2V DATE OF EXAM: 09/09/2019 COMPARISON: 06/10/2019 HISTORY: Weakness. TECHNIQUE: 2 views FINDINGS: Heart is enlarged. There is mild pulmonary congestion. There is very slight blunting of the costophrenic angles. Thoracic aorta is atheromatous. There are chest leads. Bony thorax is intact. IMPRESSION: Cardiomegaly and small pleural effusions. There is probably minimal heart failure. Pulmon benito congestion increased compared to old exam.
[2019-09-09 21:33] LABS: Anisocytosis Slight; Basophils # (A) 0.1 k/uL (0-0.2); Basophils % (A) 1 %; Eosinophils # (A) 0.1 k/uL (0-0.7); Eosinophils % (A) 2 %; HCT 49.7 % (34.0-46.0); HGB 14.6 gm/dL (11.4-16.0); Hypochromasia Marked; Lymphocytes # (A) 1.4 k/uL (1.0-4.8); Lymphocytes % (A) 16 %; MCH 26.9 pg (25.0-35.0); MCHC 29.3 g/dL (31.0-37.0); MCV 91.5 fL (80.0-100.0); Mean Platelet Volume 7.5; Monocytes # (A) 0.8 k/uL (0-1.0); Monocytes % (A) 9 %; Neutrophils # (A) 6.2 k/uL (1.3-7.7); Neutrophils % (A) 71 %; Platelet Count 306 k/uL (150-450); RBC 5.44 m/uL (3.80-5.40); RDW 17.2 % (11.5-15.5); WBC 8.6 k/uL (3.8-10.6)
[2019-09-09 21:51] LABS: Albumin 3.6 g/dL (3.5-5.0); Calcium 9.6 mg/dL (8.4-10.2); Magnesium 2.2 mg/dL (1.6-2.3); Phosphorus 3.7 mg/dL (2.5-4.5); Potassium 4.3 mmol/L (3.5-5.1); Total Bilirubin 1.5 mg/dL (0.2-1.3); Total Protein 6.3 g/dL (6.3-8.2)
[2019-09-09 21:52] LABS: Partial Thromboplastin Time 29.7 sec (22.0-30.0); Prothrombin Time 19.4 sec (9.0-12.0)
[2019-09-09 22:01] LABS: D-Dimer 1.66 mg/L FEU (<0.60)
[2019-09-09] MEDS ORDERED: IPRATROPIUM-ALBUTEROL 3 ML NEB INHALATION STA (22:01)
[2019-09-09] MEDS ORDERED: FUROSEMIDE 10 MG/ML 4 ML VIAL IV STA (22:09)
[2019-09-09] MEDS: methylPREDNISolone SOD SUCCI 125 MG/2 ML VIAL IV SCH (23:20)
[2019-09-10] MEDS: methylPREDNISolone SOD SUCCI 125 MG/2 ML VIAL IV SCH ×4 (05:50→23:13)
[2019-09-10] MEDS: IPRATROPIUM-ALBUTEROL 3 ML NEB INHALATION SCH ×4 (07:43→20:04)
[2019-09-10] MEDS ORDERED: ACETAMINOPHEN TAB 325 MG TAB PO PRN (10:02)
[2019-09-10] MEDS: METOPROLOL TARTRATE 50 MG TAB PO SCH ×2 (10:45→21:17)
[2019-09-10] MEDS: FUROSEMIDE 10 MG/ML 4 ML VIAL IV SCH ×2 (10:45→21:16)
[2019-09-10] MEDS ORDERED: NITROGLYCERIN SL TABS 0.4 MG TAB SUBLINGUAL PRN (10:48)
--- NOTE | 2019-09-10 11:44 | P.HPIM ---
History of Present Illness H&P Date: 09/10/19 (SOB, severe weakness of the lower extremities with inability to stand up.) Chief Complaint: SOB, weakness of the lower extremities with inability to stand up. History of present illness Patient brought to the emergency room by EMS with complaint shortness of breath and inability to stand up or walk or go to the bathroom after using diltiazem. Mrs. Roldan 84 years old white female has underlying irregular heartbeat with atrial fibrillation and she was short of breath seen by Dr. Rendon cardiology 3 days ago and he applied 24-hour Holter monitor, and he started her on diltiazem. The dose is unknown to me. Subsequently patient return her Holter monitor to the cardiology office yesterday, but she stated that she stopped to the cardiac exam after she felt that could not stand up or walk and edema of the lower extremities as well as severe shortness of breath and came to the ER on 09/09/2019. Patient seen in the emergency room and subsequently found that she has been worsening over congestive heart failure with a chest x-ray indicating pleural effusion minimal with the elevated d-dimer as well as her NT pro BNP 4010. And requested admission with the congestive heart failure and inability to walk. With the consultation with Dr. Childress covered by Dr. Sarkar and Dr. Rendon covered by . Home medication she is on Coumadin therapy with the underlying chronic atrial fibrillation. Metoprolol tartrate 50 mg twice a day Vytorin 10/10 one tablet daily. Gabapentin 100 mg 2 tablet at bedtime Allopurinol 100 mg daily. Lasix 40 mg tablet and she is taking 2 tablets in a.m. and 2 tablet in the p.m. [place] one to 2 tablets every 6 hour when necessary Diltiazem 2 tablet daily doses unknown and patient stopped the medication because of inability to walk swelling of the lower extremities and become more short of breath. The inhalation nebulizers with albuterol and ipratropium 4 times a day Budesonide inhalation 0.5 mg twice a day. ALLERGY is unknown. Past medical history chronic atrial fibrillation on Coumadin, chest pain, angina which is not recently present, congestive heart failure, COPD, TIA, hyperlipidemia, hypertension, pneumonia, chronic kidney disease stage III, pulmonary hypertension. Abdominal hernia, diverticulosis, history of diverticulitis, and urinary incontinence., She had history of adenoidectomy, appendectomy, breast surgery, cardiac catheterization, hysterectomy, and tonsillectomy. History of lens implant and cataract surgery, rectocele and cystocele, breast biopsy negative. Smoking history: Never smoked in the past. Family history cancer, [place], with the father and aneurysm bone cancer, he age of 75 from brain aneurysm. Mother she had congestive heart failure at age of 84. Review of system: Reviewed the 14 bullet with the main concern of her shortness of breath as well as inability to walk with the severe weakness associated with congestive heart failure, pulmonary hypertension, COPD exacerbation. On physical exam: Patient is conscious alert oriented 3 and that she had significant weakness of the lower extremities and no back pain and no radiculopathy. HEENT: The head was normocephalic atraumatic, pupil is equal reactive conjunctiva was pink, extraocular muscle movement no icterus. Oropharynx, she had upper plate denture and have lower only incisor. Tongue was glazed. Uvula midline. No erythema. Ear hearing is intact. Neck supple and normal movement, no lymphadenopathy, no thyromegaly, trachea midline. Chest: Increase inspiratory expiratory squeezing bilateral with the underlying history of COPD, never smoked and has history of asthma and pulmonary hypertension. The abdomen: Positive bowel sounds no tenderness in the 4 quadrants. The heart: She had regular irregularities with the atrial fibrillation, currently heart rate is controlled. The previous echocardiogram was not available at the time of dictation. Extremities: She had bilateral edema which improved with IV Lasix. She had also weakness in bilateral of the lower extremities Neurologically: Stable general condition with mild antianxiety. No lateralizing sign she can move 4 when she is in supine position of the leg and the thighs but difficult to carry weight to stand up Psychiatry stable mood. Assessment: #1 acute exacerbation of COPD. #2 history of atrial fibrillation was not controlled and she underwent 24-hour Holter monitor by Dr. 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 #3 patient already on her own stopped the diltiazem and we are not going to resume at on-call the cardiology see and evaluate and if he wants to continue with it or not. #4 Dr. Sarkar did see the patient and adjusted the medication in regard of the Lasix IV. And #5 full obtain the physical therapy PT and OT tomorrow. Plan: #1 diuresis #2 consultation with the cardiology with a reevaluation with the elevated pro-NT BMP. And rehabilitation. Continue her current medication a nd to be adjusted if the cardiology need adjustment. Past Medical History Past Medical History: Atrial Fibrillation, Chest Pain / Angina, Heart Failure, COPD, CVA/TIA, Hyperlipidemia, Hypertension, Pneumonia, Renal Disease Additional Past Medical History / Comment(s): COPD, severe MR, severe TR, moderate to severe pulmonary hypertension, chronic atrial fibrillation, hypertension, hyperlipidemia, history of hypercoagulability and and the patient has been maintained on anticoagulation with warfarin, abdominal hernia, diverticulosis and previous history of diverticulitis, history of urinary incontinence, hypertension, history of CVA History of Any Multi-Drug Resistant Organisms: None Reported Past Surgical History: Adenoidectomy, Appendectomy, Breast Surgery, Heart Catheterization, Hysterectomy, Tonsillectomy Additional Past Surgical History / Comment(s): CATARACTS-LENS IMPLANTS, CYSTOCELE/RECTOCELE AND HOLE IN BOWEL REPAIRED, LT HAND THUMB SX, BREAST BIOPSY- NEG, 4 cm AAA, L little toe bone removed, hammer toe surgery Past Anesthesia/Blood Transfusion Reactions: No Reported Reaction Past Psychological History: No Psychological Hx Reported Additional Psychological History / Comment(s): related to procedure Smoking Status: Never smoker Past Alcohol Use History: None Reported Additional Past Alcohol Use History / Comment(s): 1/2 PPD Past Drug Use History: None Reported - Past Family History Father Family Medical History: Cancer, Myocardial Infarction ([place]) Additional Family Medical History / Comment(s): ANEURYSMS, BONE CA. AGE 75 FROM ANEURYSM IN HEAD Mother Family Medical History: Congestive Heart Failure (CHF) Additional Family Medical History / Comment(s): AT AGE 84 Medications and Allergies Home Medications Medication Instructions Recorded Confirmed Type Furosemide [Lasix] 40 mg PO BID@0800,1700 03/22/16 06/09/19 History Acetaminophen Tab [Tylenol] 650 mg PO Q4H PRN 05/27/19 06/09/19 History Allopurinol [Zyloprim] 100 mg PO DAILY@0800 05/27/19 06/09/19 History Budesonide/Formoterol Fumarate 2 puff INHALATION RT-BID 05/27/19 06/09/19 History [Symbicort 80-4.5 Mcg Inhaler] Ipratropium-Albuterol Nebulize 3 ml INHALATION RT-QID PRN 05/27/19 06/09/19 History [Duoneb 0.5 mg-3 mg/3 ml Soln] LORazepam [Ativan] 0.5 mg PO BID 05/27/19 06/09/19 History Metoprolol Tartrate [Lopressor] 50 mg PO BID tab 06/01/19 06/09/19 Rx Nitroglycerin Sl Tabs [Nitrostat] 0.4 mg SUBLINGUAL Q5M PRN tab 06/01/19 06/09/19 Rx Budesonide [Pulmicort] 0.5 mg INHALATION RT-BID ml 06/02/19 06/09/19 Rx Aspirin 81 mg PO DAILY@1700 06/09/19 06/09/19 History Atorvastatin [Lipitor] 10 mg PO HS@209906/09/19 06/09/19 History Ezetimibe [Zetia] 10 mg PO HS@2100 06/09/19 06/09/19 History Lisinopril [Zestril] 2.5 mg PO DAILY@0800 06/09/19 06/09/19 History Simvastatin 10 mg PO HS@2100 06/09/19 06/09/19 History Spironolactone [Aldactone] 25 mg PO DAILY@0800 06/09/19 06/09/19 History Warfarin Sodium [Jantoven] 2 mg PO DAILY@1700 06/09/19 06/09/19 History traMADol HCl [Ultram] 50 mg PO Q6HR PRN 06/09/19 06/09/19 History Docusate [Colace] 200 mg PO BID@0800,1700 cap 06/13/19 Rx Allergies Allergy/AdvReac Type Severity Reaction Status Date / Time No Known Allergies Allergy Verified 09/09/19 20:57 Physical Exam Vitals: Vital Signs Temp Pulse Pulse Resp BP BP Pulse Ox 09/10/19 11:07 77 09/10/19 10:57 76 09/10/19 08:00 74 09/10/19 07:43 72 09/10/19 07:00 98.1 F 92 20 132/86 98 09/09/19 23:48 97.9 F 91 18 155/90 91 L 09/09/19 23:38 17 09/09/19 22:39 22 09/09/19 22:22 80 18 09/09/19 22:11 81 18 09/09/19 20:53 98.1 F 85 22 127/78 93 L Intake and Output 09/09/19 09/10/19 09/10/19 22:59 06:59 14:59 Other: # Voids 1 Weight 73.482 kg Results CBC & Chem 7: 09/09/19 21:00 09/09/19 21:00 Labs: Abnormal Lab Results - Last 24 Hours (Table) 09/09/19 09/09/19 09/09/19 Range/Units 21:00 21:00 21:00 RBC 5.44 H (3.80-5.40) m/uL Hct 49.7 H (34.0-46.0) % MCHC 29.3 L (31.0-37.0) g/dL RDW 17.2 H (11.5-15.5) % PT 19.4 H (9.0-12.0) sec INR 2.0 H (<1.2) D-Dimer 1.66 H (<0.60) mg/L FEU Chloride 108 H (98-107) mmol/L Carbon Dioxide 21 L (22-30) mmol/L Total Bilirubin 1.5 H (0.2-1.3) mg/dL Thrombosis Risk Factor Assmnt - Choose All That Apply Any of the Below Risk Factors Present?: Yes Each Factor Represents 1 point: Medical pt on bed rest, Serious lung disease incl. pneumonia (< 1month), Swollen legs (current) Other Risk Factors: Yes Each Risk Factor Represents 3 Points: Age 75 years or older Thrombosis Risk Factor Assessment Total Risk Factor Score: 6 Thrombosis Risk Factor Assessment Level: High Risk
[2019-09-10 12:10] LABS: Appearance,Urine Cloudy (Clear); Bacteria,Urine Few /hpf; Bilirubin,Urine Negative (Negative); Blood,Urine Negative (Negative); Color,Urine Yellow; Glucose,Urine (UA) Negative (Negative); Hyaline Casts,Urine 1 /lpf (0-2); Ketones,Urine Negative (Negative); Leukocyte Esterase,Urine Negative (Negative); Mucus,Urine Rare /hpf; Nitrite,Urine Positive (Negative); PH, Urine 5.5 (5.0-8.0); Protein,Urine Negative (Negative); RBC,Urine <1 /hpf (0-5); Specific Gravity,Urine 1.009 (1.001-1.035); Squamous Epithelial Cell,Urine 1 /hpf (0-4); Urobilinogen,Urine <2.0 mg/dL (<2.0); WBC,Urine 3 /hpf (0-5)
--- NOTE | 2019-09-10 12:11 | P.CRDCN ---
History of Present Illness Consult date: 09/10/19 Consult reason: atrial fibrillation, congestive heart failure History of present illness: The patient is an 84-year-old female with past medical history of atrial fibrillation, congestive heart failure, nonischemic cardiomyopathy, COPD, TIA, CKD, pulmonary hypertension, hypertension, and hyperlipidemia, who presented to the hospital with increased shortness of breath and lower extremity weakness. She recently followed up with Dr. Rendon in the office, where she was placed on diltiazem and set up with a Holter monitor. She states she returned the monitor this past Wednesday, however she discontinued the medication on Wednesday thinking it was contributing to her symptoms. She states she was very unsteady on her feet, therefore she presented to the hospital. EKG shows rate controlled atrial fibrillation with incomplete right bundle-branch block. BNP 4000.Chest x-ray shows cardiomegaly and small pleural effusions. Possible heart failure and pulmonary congestion. Echocardiogram performed in May showed LV function of 35-40% with moderate LVH, moderate aortic sclerosis, moderate to severe mitral regurgitation, severe tricuspid regurgitation, and severe pulmonary hypertension. Coronary angiography performed in June showed mildly calcified coronary arteries with mild disease in the LAD and RCA. PAST MEDICAL HISTORY: Persistent atrial fibrillation, congestive heart failure, nonischemic cardiomyopathy, COPD, TIA, CKD stage III, pulmonary hypertension, hypertension, hyperlipidemia, REVIEW OF SYSTEMS: No fever or chills. No cough or expectoration. No diaphoresis. Patient denies headache, dizziness, blurred vision, double vision. Patient denies any stomach discomfort. No nausea, vomiting. No hematochezia. No hematemesis. Denies any black stools or blood in his stools. Denies dysuria or hematuria. No muscle weakness or numbness. No chest discomfort. Shortness of breath with exertion, currently asymptomatic resting in bed. PHYSICAL EXAMINATION: This is a 84-year-old female in no apparent distress at t he time of my examination. HEENT: Head is atraumatic, normocephalic. Pupils are equal, round. Sclerae anicteric. Conjunctivae are clear. Mucous membranes of the mouth are moist. Neck is supple. There is no jugular venous distention. No carotid bruit is heard. CHEST EXAMINATION: Bilateral wheezes. No chest wall tenderness is noted on palpation or with deep breathing. HEART EXAMINATION: Heart rate irregular. S1, S2 heard. Soft systolic murmur. No gallops or rub. ABDOMEN: Soft, nontender. Bowel sounds are heard. No organomegaly noted. EXTREMITIES: 2+ peripheral pulses. no calf tenderness noted. 1+ pitting edema. NEUROLOGIC EXAMINATION: Patient is awake, alert and oriented x3. LABORATORY DATA: WBC 8.6, hemoglobin 14.6, hematocrit 46 9.7, platelet 306, d-dimer 1.66, sodium 139, potassium 4.3, BUN 17, creatinine 0.92, magnesium 2.2, AST 23, ALT 11, troponin 0.018, BNP 4010, TSH 3.6 FINAL ASSESSMENT AND PLAN: #1 congestive heart failure, acute on chronic #2 persistent atrial fibrillation, on anticoagulation with warfarin #3 nonischemic cardiomyopathy, EF 35-40% #4 valvular heart disease, mitral and tricuspid regurgitation #5 pulmonary hypertension #6 COPD #7 chronic kidney disease #8 elevated d-dimer, INR low normal, rule out pulmonary emboli PLAN: We will continue current medication regimen. Consider increasing beta jerad for rate control, as she was intolerant to Cardizem. Check orthostatic blood pressures. We will obtain a copy of Holter monitor. VQ scan for elevated d-dimer and low normal INR. Continue to monitor. Past Medical History Past Medical History: Atrial Fibrillation, Chest Pain / Angina, Heart Failure, COPD, CVA/TIA, Hyperlipidemia, Hypertension, Pneumonia, Renal Disease Additional Past Medical History / Comment(s): COPD, severe MR, severe TR, moderate to severe pulmonary hypertension, chronic atrial fibrillation, hypertension, hyperlipidemia, history of hypercoagulability and and the patient has been maintained on anticoagulation with warfarin, abdominal hernia, diverticulosis and previous history of diverticulitis, history of urinary incontinence, hypertension, history of CVA History of Any Multi-Drug Resistant Organisms: None Reported Past Surgical History: Adenoidectomy, Appendectomy, Breast Surgery, Heart Catheterization, Hysterectomy, Tonsillectomy Additional Past Surgical History / Comment(s): CATARACTS-LENS IMPLANTS, CYSTOCELE/RECTOCELE AND HOLE IN BOWEL REPAIRED, LT HAND THUMB SX, BREAST BIOPSY- NEG, 4 cm AAA, L little toe bone removed, hammer toe surgery Past Anesthesia/Blood Transfusion Reactions: No Reported Reaction Past Psychological History: No Psychological Hx Reported Additional Psychological History / Comment(s): related to procedure Smoking Status: Never smoker Past Alcohol Use History: None Reported Additional Past Alcohol Use History / Comment(s): 1/2 PPD Past Drug Use History: None Reported - Past Family History Father Family Medical History: Cancer, Myocardial Infarction (NH) Additional Family Medical History / Comment(s): ANEURYSMS, BONE CA. AGE 75 FROM ANEURYSM IN HEAD Mother Family Medical History: Congestive Heart Failure (CHF) Additional Family Medical History / Comment(s): AT AGE 84 Medications and Allergies Home Medications Medication Instructions Recorded Confirmed Type Furosemide [Lasix] 40 mg PO BID@0800,1700 03/22/16 06/09/19 History Acetaminophen Tab [Tylenol] 650 mg PO Q4H PRN 05/27/19 06/09/19 History Allopurinol [Zyloprim] 100 mg PO DAILY@0805/27/19 06/09/19 History Budesonide/Formoterol Fumarate 2 puff INHALATION RT-BID 05/27/19 06/09/19 History [Symbicort 80-4.5 Mcg Inhaler] Ipratropium-Albuterol Nebulize 3 ml INHALATION RT-QID PRN 05/27/19 06/09/19 History [Duoneb 0.5 mg-3 mg/3 ml Soln] LORazepam [Ativan] 0.5 mg PO BID 05/27/19 06/09/19 History Metoprolol Tartrate [Lopressor] 50 mg PO BID tab 06/01/19 06/09/19 Rx Nitroglycerin Sl Tabs [Nitrostat] 0.4 mg SUBLINGUAL Q5M PRN tab 06/01/19 06/09/19 Rx Budesonide [Pulmicort] 0.5 mg INHALATION RT-BID ml 06/02/19 06/09/19 Rx Aspirin 81 mg PO DAILY@1700 06/09/19 06/09/19 History Atorvastatin [Lipitor] 10 mg PO HS@209906/09/19 06/09/19 History Ezetimibe [Zetia] 10 mg PO HS@209906/09/19 06/09/19 History Lisinopril [Zestril] 2.5 mg PO DAILY@0800 06/09/19 06/09/19 History Simvastatin 10 mg PO HS@209906/09/19 06/09/19 History Spironolactone [Aldactone] 25 mg PO DAILY@0800 06/09/19 06/09/19 History Warfarin Sodium [Jantoven] 2 mg PO DAILY@1700 06/09/19 06/09/19 History traMADol HCl [Ultram] 50 mg PO Q6HR PRN 06/09/19 06/09/19 History Docusate [Colace] 200 mg PO BID@0800,1700 cap 06/13/19 Rx Allergies Allergy/AdvReac Type Severity Reaction Status Date / Time No Known Allergies Allergy Verified 09/09/19 20:57 Physical Exam Vitals: Vital Signs Temp Pulse Pulse Resp BP BP Pulse Ox 09/10/19 11:07 77 09/10/19 10:57 76 09/10/19 08:00 74 09/10/19 07:43 72 09/10/19 07:00 98.1 F 92 20 132/86 98 09/09/19 23:48 97.9 F 91 18 155/90 91 L 09/09/19 23:38 17 09/09/19 22:39 22 09/09/19 22:22 80 18 09/09/19 22:11 81 18 09/09/19 20:53 98.1 F 85 22 127/78 93 L Intake and Output 09/09/19 09/10/19 09/10/19 22:59 06:59 14:59 Other: # Voids 1 Weight 73.482 kg Results 09/09/19 21:00 09/09/19 21:00 Cardiac Enzymes 09/09/19 09/09/19 Range/Units 21:00 21:00 AST 23 (14-36) U/L Troponin I 0.018 (0.000-0.034) ng/mL Coagulation 09/09/19 Range/Units 21:00 PT 19.4 H (9.0-12.0) sec APTT 29.7 (22.0-30.0) sec CBC 09/09/19 Range/Units 21:00 WBC 8.6 (3.8-10.6) k/uL RBC 5.44 H (3.80-5.40) m/uL Hgb 14.6 (11.4-16.0) gm/dL Hct 49.7 H (34.0-46.0) % Plt Count 306 (150-450) k/uL Comprehensive Metabolic Panel 09/09/19 Range/Units 21:00 Sodium 139 (137-145) mmol/L Potassium 4.3 (3.5-5.1) mmol/L Chloride 108 H (98-107) mmol/L Carbon Dioxide 21 L (22-30) mmol/L BUN 17 (7-17) mg/dL Creatinine 0.92 (0.52-1.04) mg/dL Glucose 83 (74-99) mg/dL Calcium 9.6 (8.4-10.2) mg/dL AST 23 (14-36) U/L ALT 11 (4-34) U/L Alkaline Phosphatase 95 (38-126) U/L Total Protein 6.3 (6.3-8.2) g/dL Albumin 3.6 (3.5-5.0) g/dL Current Medications Generic Name Dose Route Start Last Admin Trade Name Freq PRN Reason Stop Dose Admin Acetaminophen 650 mg 09/10/19 10:02 Tylenol Tab PO Q4H PRN PAIN/FEVER Albuterol/Ipratropium 3 ml 09/10/19 08:00 09/10/19 10:57 Duoneb 0.5 Mg-3 Mg/3 Ml Soln INHALATION 3 ml RT-QID [facility] Administration Allopurinol 100 mg 09/11/19 08:00 Zyloprim PO DAILY@0800 [facility] Aspirin 81 mg 09/10/19 17:00 Aspirin PO DAILY@1700 [facility] Atorvastatin Calcium 10 mg 09/10/19 21:00 Lipitor PO HS@2100 [facility] Budesonide 0.5 mg 09/10/19 20:00 Pulmicort INHALATION RT-BID [facility] Budesonide/Formoterol Fumarate 2 puff 09/10/19 20:00 Symbicort 80-4.5 Mcg Inhaler INHALATION RT-BID [facility] Docusate Sodium 200 mg 09/10/19 17:00 Colace PO BID@0800,1700 [facility] Ezetimibe 10 mg 09/10/19 21:00 Zetia PO HS@2100 [facility] Furosemide 40 mg 09/10/19 10:15 09/10/19 10:45 Lasix IV 40 mg Q12HR GENIE Administration Lisinopril 2.5 mg 09/11/19 08:00 Zestril PO DAILY@0800 [facility] Lorazepam 0.5 mg 09/10/19 21:00 Ativan PO BID [facility] Methylprednisolone Sodium Succinate 60 mg 09/10/19 00:00 09/10/19 05:50 Solu-Medrol IV 60 mg Q6HR [facility] Administration Metoprolol Tartrate 50 mg 09/10/19 10:15 09/10/19 10:45 Lopressor PO 50 mg BID [facility] Administration Miscellaneous Information 0 each 09/10/19 10:19 Coumadin Per Pharmacy MISCELLANE DIRECTED PRN A FIB Nitroglycerin 0.4 mg 09/10/19 10:48 Nitrostat SUBLINGUAL Q5M PRN Chest Pain Spironolactone 25 mg 09/11/19 08:00 Aldactone PO DAILY@0800 [facility] Warfarin Sodium 2 mg 09/10/19 17:00 Coumadin PO DAILY@1700 [facility] Protocol Intake and Output 09/09/19 09/10/19 09/10/19 22:59 06:59 14:59 Other: # Voids 1 Weight 73.482 kg 09/09/19 21:00 09/09/19 21:00
[2019-09-10 12:13] LABS: Glucose,Whole Blood 277 mg/dL (75-99)
[2019-09-10] MEDS: INSULIN ASPART (NovoLOG) 100 UNIT/ML VIAL SQ SCH ×3 (12:38→21:16)
--- NOTE | 2019-09-10 12:49 | P.CNPUL ---
History of Present Illness Consult date: 09/10/19 Reason for consult: dyspnea History of present illness: This is an 84-year-old female patient who came in yesterday to the emergency department with worsening shortness of breath and generalized weakness. The patient was unable to breathe and walk properly and she was decompensating and for that reason she came into the hospital. She was also having increased cough and chest tightness and wheezing and she was also having increased lower ex tremity edema. She is known to me. I've seen her during a previous hospitalization back in May 2019. Note that at that time had echocardiac Brennan was repeated and there was new onset segmental wall motion abnormality and further drop in the left anterior ejection fraction down to 30% and there was obvious worsening of the pulmonary artery pressures. The patient was seen by cardiology. Her last catheterization that was done in 2014 showed normal coronaries. 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 Note that she also has atrial fibrillation which is chronic. Her INR was therapeutic at time of admission at 2.0. I noted some increased lower extremity edema. I noted that her proBNP level was above 4000. I also noted that her CPK was 44 with a troponin of 0.018. Her EKG was consistent with chronic atrial fibrillation with a controlled rate of 86. No acute abnormalities were noted. There was an incomplete right bundle branch block. For now, the patient will be treated for a combination of COPD and CHF exacerbation. She is already on IV Lasix patient be also started on IV Solu Medrol in addition to bronchodilators around the clock. PT/INR is therapeutic and the and correlation with warfarin will be continued. Chest x-ray showing thyromegaly with mild pulmonary vascular congestion. Review of Systems Constitutional: Reports weakness to the point where the patient was having d ifficulties walking and ambulation. Eyes: bilateral blurred vision, denies as per HPI, denies bulging eye, denies decreased vision, denies diplopia, denies discharge, denies dry eye, denies irritation, denies itching, denies pain, denies photophobia, denies loss of peripheral vision, denies loss of vision, denies tunnel vision/blind spots Ears: bilateral: decreased hearing Ears, nose, mouth and throat: Reports as per HPI Cardiovascular: Reports decreased exercise tolerance, Reports dyspnea on ex ertion, Reports irregular heart beat, Reports palpitations Respiratory: Reports dyspnea, Reports wheezing, worsening shortness of breath and cough and chest tightness and wheezing Gastrointestinal: Reports as per HPI Genitourinary: Reports as per HPI Menstruation: Reports as per HPI Musculoskeletal: Reports as per HPI Musculoskeletal: absent: ankle pain, ankle stiffness, ankle swelling and the patient has been having worsening in lower extremity edema Integumentary: Reports as per HPI Neurological: Reports as per HPI, Reports weakness and is essentially global muscle weakness Psychiatric: Reports as per HPI Endocrine: Reports as per HPI Hematologic/Lymphatic: Reports as per HPI Allergic/Immunologic: Reports as per HPI Past Medical History Past Medical History: Atrial Fibrillation, Chest Pain / Angina, Heart Failure, COPD, CVA/TIA, Hyperlipidemia, Hypertension, Pneumonia, Renal Disease Additional Past Medical History / Comment(s): COPD, congestion heart failure with an ejection fraction of 30-35% along with severe MR, severe TR, moderate to severe pulmonary hypertension, chronic atrial fibrillation, hypertension, hype rlipidemia, history of hypercoagulability and and the patient has been maintained on anticoagulation with warfarin, abdominal hernia, diverticulosis and previous history of diverticulitis, history of urinary incontinence, hypertension, history of CVA History of Any Multi-Drug Resistant Organisms: None Reported Past Surgical History: Adenoidectomy, Appendectomy, Breast Surgery, Heart Catheterization, Hysterectomy, Tonsillectomy Additional Past Surgical History / Comment(s): CATARACTS-LENS IMPLANTS, CYSTOCELE/RECTOCELE AND HOLE IN BOWEL REPAIRED, LT HAND THUMB SX, BREAST BIOPSY- NEG, 4 cm AAA, L little toe bone removed, hammer toe surgery Past Anesthesia/Blood Transfusion Reactions: No Reported Reaction Past Psychological History: No Psychological Hx Reported Additional Psychological History / Comment(s): related to procedure Smoking Status: Never smoker Past Alcohol Use History: None Reported Additional Past Alcohol Use History / Comment(s): 1/2 PPD Past Drug Use History: None Reported - Past Family History Father Family Medical History: Cancer, Myocardial Infarction (ID) Additional Family Medical History / Comment(s): ANEURYSMS, BONE CA. AGE 75 FROM ANEURYSM IN HEAD Mother Family Medical History: Congestive Heart Failure (CHF) Additional Family Medical History / Comment(s): AT AGE 84 Medications and Allergies Home Medications Medication Instructions Recorded Confirmed Type Furosemide [Lasix] 40 mg PO BID@0800,1700 03/22/16 06/09/19 History Acetaminophen Tab [Tylenol] 650 mg PO Q4H PRN 05/27/19 06/09/19 History Allopurinol [Zyloprim] 100 mg PO DAILY@0800 05/27/19 06/09/19 History Budesonide/Formoterol Fumarate 2 puff INHALATION RT-BID 05/27/19 06/09/19 History [Symbicort 80-4.5 Mcg Inhaler] Ipratropium-Albuterol Nebulize 3 ml INHALATION RT-QID PRN 05/27/19 06/09/19 History [Duoneb 0.5 mg-3 mg/3 ml Soln] LORazepam [Ativan] 0.5 mg PO BID 05/27/19 06/09/19 History Metoprolol Tartrate [Lopressor] 50 mg PO BID tab 06/01/19 06/09/19 Rx Nitroglycerin Sl Tabs [Nitrostat] 0.4 mg SUBLINGUAL Q5M PRN tab 06/01/19 06/09/19 Rx Budesonide [Pulmicort] 0.5 mg INHALATION RT-BID ml 06/02/19 06/09/19 Rx Aspirin 81 mg PO DAILY@1700 06/09/19 06/09/19 History Atorvastatin [Lipitor] 10 mg PO HS@209906/09/19 06/09/19 History Ezetimibe [Zetia] 10 mg PO HS@209906/09/19 06/09/19 History Lisinopril [Zestril] 2.5 mg PO DAILY@0800 06/09/19 06/09/19 History Simvastatin 10 mg PO HS@209906/09/19 06/09/19 History Spironolactone [Aldactone] 25 mg PO DAILY@0800 06/09/19 06/09/19 History Warfarin Sodium [Jantoven] 2 mg PO DAILY@1700 06/09/19 06/09/19 History traMADol HCl [Ultram] 50 mg PO Q6HR PRN 06/09/19 06/09/19 History Docusate [Colace] 200 mg PO BID@0800,1700 cap 06/13/19 Rx Allergies Allergy/AdvReac Type Severity Reaction Status Date / Time No Known Allergies Allergy Verified 09/09/19 20:57 Physical Exam Vitals: Vital Signs Temp Pulse Pulse Pulse Pulse Resp BP 09/10/19 12:22 80 100 88 09/10/19 11:07 77 09/10/19 10:57 76 09/10/19 08:00 74 09/10/19 07:43 72 09/10/19 07:00 98.1 F 92 20 09/09/19 23:48 97.9 F 91 18 09/09/19 23:38 17 09/09/19 22:39 22 09/09/19 22:22 80 18 09/09/19 22:11 81 18 09/09/19 20:53 98.1 F 85 22 127/78 BP BP BP Pulse Ox 09/10/19 12:22 157/83 153/74 152/104 09/10/19 11:07 09/10/19 10:57 09/10/19 08:00 09/10/19 07:43 09/10/19 07:00 132/86 98 09/09/19 23:48 155/90 91 L 09/09/19 23:38 09/09/19 22:39 09/09/19 22:22 09/09/19 22:11 09/09/19 20:53 93 L Intake and Output 09/09/19 09/10/19 09/10/19 22:59 06:59 14:59 Other: # Voids 1 Weight 73.482 kg Gen. appearance, comfortable likely distress, currently on oxygen at 3 L per minute nasal cannula Head exam was generally normal. There was no scleral icterus or corneal arcus. Mucous membranes were moist. Neck was supple and without jugular venous distension, thyromegaly, or carotid bruits. Carotids were easily palpable bilaterally. There was no adenopathy. Lungs diminished breath sound along with scattered expiratory wheezes throughout the lung macdonald bilaterally Cardiac exam revealed the PMI to be normally situated and sized. The rhythm was regular and no extrasystoles were noted during several minutes of auscultation. The first and second heart sounds were normal and physiologic splitting of the second heart sound was noted. There were no murmurs, rubs, clicks, or gallops. Overall the heart sounds are distant and I'm not able to she denies significant murmurs. Nevertheless this is a irregular rhythm consistent with atrial fibrillation. Abdominal exam revealed normal bowel sounds. The abdomen was soft, non-tender, and without masses, organomegaly, or appreciable enlargement of the abdominal aorta. Examination of the extremities revealed easily palpable radial, femoral and pedal pulses. There was no cyanosis, clubbing and there is some increased edema lower extremities bilaterally. Examination of the skin revealed no evidence of significant rashes, suspicious appearing nevi or other concerning lesions. Neurologically the patient is moving all 4 extremities without any limitation. There is global muscle weakness in all 4 extremities patient in the legs Results - Laboratory Findings CBC and BMP: 09/09/19 21:00 09/09/19 21:00 PT/INR, D-dimer PT 19.4 sec (9.0-12.0) H 09/09/19 21:00 INR 2.0 (<1.2) H 09/09/19 21:00 D-Dimer 1.66 mg/L FEU (<0.60) H 09/09/19 21:00 Abnormal lab findings: Abnormal Labs 09/09/19 09/09/19 09/09/19 21:00 21:00 21:00 RBC 5.44 H Hct 49.7 H MCHC 29.3 L RDW 17.2 H PT 19.4 H INR 2.0 H D-Dimer 1.66 H Chloride 108 H Carbon Dioxide 21 L POC Glucose (mg/dL) Total Bilirubin 1.5 H Urine Appearance Urine Nitrite Urine Bacteria Urine Mucus 09/10/19 09/10/19 07:25 12:12 RBC Hct MCHC RDW PT INR D-Dimer Chloride Carbon Dioxide POC Glucose (mg/dL) 277 H Total Bilirubin Urine Appearance Cloudy H Urine Nitrite Positive H Urine Bacteria Few H Urine Mucus Rare H - Diagnostic Findings Chest x-ray: image reviewed Assessment and Plan Plan: 1 acute on chronic shortness of breath. The patient's dyspnea is essentially multifactorial. She is in a combination of COPD and CHF exacerbation. Her COPD is in mild severity, nevertheless, she is having increased dyspnea chest tightness and wheezing consistent with COPD exacerbation. At the same time, this patient has developed worsening in CHF with segmental wall motion abn ormalities and mitral regurgitation secondary pulmonary hypertension which is severe and this was noted on the most recent echocardiogram that was done in May 2019. She also has chronic atrial fibrillation. Cardiac catheterization from 2015 has been essentially within normal limits with normal coronaries. Underlying CAD cannot be ruled out. Chest x-ray showing cardiomegaly and pulmonary vessel congestion and the patient is also having an elevated BNP level with a negative cardiac enzyme. As such, shortness of breath is chronic with acute decompensation due to the above-mentioned factors. 2 chronic atrial fibrillation, rate controlled in the PT/INR is therapeutic for now 3 chronic valvular heart disease with significant MR and severe pulmonary hypertension, ejection fraction is in order of 35% and the patient has segmental wall motion abnormalities and moderate to severe MR with severe pulmonary hypertension with a PA pressure of 63. 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 10 generalized weakness Plan Continue DuoNenolan stephens overestimates [id number] IV Solu Medrol 60 every 6 IV Lasix 40 every 12 Monitor PT/INR maintaining INR between 2 and 3 Resume all medications Consider repeating cardiac catheterization based on the segmental wall motion abnormalities and the recent drop in her lipids good ejection fraction. Oxygen therapy We'll continue to follow
[2019-09-10 13:32] VITALS: BMI 30.6
--- NOTE | 2019-09-10 16:29 | NM ---
EXAMINATION TYPE: NM pul vent and perfuse DATE OF EXAM: 09/10/2019 COMPARISON: NONE HISTORY: Elevated d-dimer TECHNIQUE: Utilizing inhalation of 35.7 mCi Tc 99m DTPA aerosol and intravenous injection of 4.2 mCi of Tc 99m MAA, ventilation and perfusion images are acquired post injection in multiple projections. FINDINGS: Normal radiotracer distribution is noted in the lungs. There is no evidence of mismatched defects. No moderate or large mismatched defects are evident. There is some central deposition through the venti lation portion study which could indicate some underlying COPD. Exam is compared to chest x-ray of 09/09/2019. IMPRESSION: Low probability for acute pulmonary embolism
[2019-09-10 16:36] LABS: Glucose,Whole Blood 196 mg/dL (75-99)
[2019-09-10] MEDS: ASPIRIN 81 MG PO SCH (16:49)
[2019-09-10] MEDS: DOCUSATE 100 MG CAP PO SCH (16:50)
[2019-09-10] MEDS ORDERED: WARFARIN 2 MG TAB PO SCH (17:00)
[2019-09-10] MEDS: HYDROcodone/APAP 5-325MG 1 EACH TAB PO PRN ×2 (18:16→23:14)
[2019-09-10] MEDS: BUDESONIDE 0.5 MG/2 ML NEBU INHALATION SCH (20:04)
[2019-09-10] MEDS: SYMBICORT 80-4.5 MCG INHALER INHALATION SCH ×2 (20:05→20:08)
[2019-09-10 20:48] LABS: Glucose,Whole Blood 258 mg/dL (75-99)
[2019-09-10] MEDS ORDERED: SIMVASTATIN 10 MG PO SCH (21:00)
[2019-09-10] MEDS: EZETIMIBE 10 MG TAB PO SCH (21:15)
[2019-09-10] MEDS: ATORVASTATIN 10 MG TAB PO SCH (21:15)
[2019-09-10] MEDS: LORazepam 0.5 MG TAB PO SCH (21:16)
[2019-09-11] MEDS: methylPREDNISolone SOD SUCCI 125 MG/2 ML VIAL IV SCH ×3 (05:53→17:48)
[2019-09-11 06:47] LABS: Glucose,Whole Blood 162 mg/dL (75-99)
[2019-09-11 07:56] LABS: INR 1.9 (<1.2); Prothrombin Time 18.8 sec (9.0-12.0)
[2019-09-11 08:08] LABS: Calcium 9.3 mg/dL (8.4-10.2); Potassium 3.6 mmol/L (3.5-5.1)
--- NOTE | 2019-09-11 08:40 | P.PN ---
Subjective This is a pleasant 84-year-old female past medical history significant for chronic persistent atrial fibrillation on residential anti-coagulation with coumadin, chronic systolic heart failure, valvular heart disease, COPD, hypertension, dyslipidemia and pulmonary hypertension. She follows in the office with Dr. Rendon. She is seen and examined sitting up in bed. She is dyspneci with conversation. She states her breathing does not seem to have improved since admission. She has no chest pain, dizziness or palpitations. Blood pressure 14 2/92 heart rate 86 afebrile and maintaining oxygen saturation on nasal cannula. Laboratory data reviewed, INR 1.9, sodium 136, potassium 3.6, creatinine 0.89. Output documented as 2525 ml over the previous 24 hours. Currently maintained on lasix 40 mg IV BID, aldactone 25 mg daily, aspirin 81 mg daily, atorvastatin 10 mg daily, zetia 10 m gdaily, lisinopril 2.5 mg daily, lopressor 50 mg BID and IV steroids. Most recent catheterization revealed mildly calcified arteries with mild non-obstructive disease of the LAD and RCA. GENERAL: Well-appearing, well-nourished and in no acute distress. NECK: Supple with bilateral JVD, no thyromegaly. LUNGS: Bibasilar rales, expiratory wheezes throughout, no rhonchi. Respiration equal and unlabored. HEART: Irregular rate and rhythm with systolic ejection murmur at the left sternal border, no rubs or gallops. S1 and S2 heard. EXTREMITIES: Normal range of motion, 1+ pitting bilateral lower extremity edema. No clubbing or cyanosis. Peripheral pulses intact. ASSESSMENT Acute on chronic systolic congestive heart failure, EF 35-40% Non-ischemic cardiomyopathy Chronic persistent atrial fibrillation on rn long term care anti-coagulation with coumadin Valvular heart disease, severe MR and TR Pulmonary hypertension, RVSP 63 mmHg COPD Hypertension Dyslipidemia PLAN Increase lasix to TID dosing. Follow renal function and electrolytes in the morning. Continue to document accurate output to assess diuresis. Repeat chest xray in the morning. We will continue to follow and make recommendations accordingly. Nurse Practitioner note has been reviewed, I agree with a documented findings and plan of care. Patient was seen and examined. Objective - Vital Signs Vital signs: Vital Signs Temp 97.5 F L 09/11/19 07:00 Pulse 86 09/11/19 07:00 Resp 17 09/11/19 07:00 BP 142/92 09/11/19 07:00 Pulse Ox 96 09/11/19 07:00 Intake & Output 09/10/19 09/11/19 09/11/19 18:59 06:59 18:59 Output Total 500 2024 Balance -500 -2024 Weight 73.482 kg Output: Urine 500 2024 Other: # Voids 1 - Labs CBC & Chem 7: 09/09/19 21:00 09/11/19 07:13 Labs: Abnormal Lab Results - Last 24 Hours (Table) 09/10/19 09/10/19 09/10/19 Range/Units 07:25 12:12 16:35 POC Glucose (mg/dL) 277 H 196 H (75-99) mg/dL Urine Appearance Cloudy H (Clear) Urine Nitrite Positive H (Negative) Urine Bacteria Few H (None) /hpf Urine Mucus Rare H (None) /hpf 09/10/19 09/11/19 Range/Units 20:46 06:46 POC Glucose (mg/dL) 258 H 162 H (75-99) mg/dL Urine Appearance (Clear) Urine Nitrite (Negative) Urine Bacteria (None) /hpf Urine Mucus (None) /hpf
[2019-09-11] MEDS: INSULIN ASPART (NovoLOG) 100 UNIT/ML VIAL SQ SCH ×4 (08:57→20:29)
[2019-09-11] MEDS: DOCUSATE 100 MG CAP PO SCH ×3 (08:58→16:52)
[2019-09-11] MEDS: LORazepam 0.5 MG TAB PO SCH ×2 (08:58→20:29)
[2019-09-11] MEDS: METOPROLOL TARTRATE 50 MG TAB PO SCH ×2 (08:58→20:29)
[2019-09-11] MEDS: LISINOPRIL 2.5 MG TAB PO SCH (08:58)
[2019-09-11] MEDS: ALLOPURINOL 100 MG TAB PO SCH (08:58)
[2019-09-11] MEDS: SPIRONOLACTONE 25 MG TAB PO SCH (08:58)
[2019-09-11] MEDS: FUROSEMIDE 10 MG/ML 4 ML VIAL IV SCH ×2 (09:17→16:46)
[2019-09-11] MEDS: IPRATROPIUM-ALBUTEROL 3 ML NEB INHALATION SCH ×4 (09:26→20:43)
[2019-09-11] MEDS: SYMBICORT 80-4.5 MCG INHALER INHALATION SCH ×2 (09:26→20:43)
[2019-09-11] MEDS: BUDESONIDE 0.5 MG/2 ML NEBU INHALATION SCH ×2 (09:26→20:43)
[2019-09-11 11:37] LABS: Glucose,Whole Blood 173 mg/dL (75-99)
[2019-09-11] MEDS ORDERED: PANTOPRAZOLE 40 MG TABLET PO SCH ×3 (13:15→17:30)
--- NOTE | 2019-09-11 13:22 | P.PN ---
Subjective Progress Note Date: 09/11/19 Progress note date of service 09/11/2019. Patient seen today by the pulmonary and critical care Dr. Gaxiola also patient seen by the cardiology or increased due to her Lasix to 3 times a day IV with the good result and urination and increase the output, and her edema of the lower extremities markedly improved. As well as her air entry of the lung. Patient is receiving updraft nebulizers and also she has been on steroid with the underlying hyperglycemia has been monitored with the insulin to scale. Her vital signs stable, patient is conscious alert oriented 3 she complained with heartburn and we increased her Protonix to twice a day. On exam: The head was normocephalic and atraumatic pupil was equal reactive normal hearing, oropharynx normal able to eat however she lost appetite and she thought that could be from the GERD. Neck was supple no JVD no thyromegaly no lymphadenopathy trachea midline. Chest markedly improvement on the lung sound with the improved and respiratory expiratory. Heart controlled atrial fibrillation with a rate of 80. And the blood pressure is controlled. Seen by cardiology and pulmonary. Abdomen: Soft positive bowel sounds no organ enlargement but she had the he artburn. Extremities positive pulses bilateral with significant decrease on the edema on the peripheral extremities. Neurologically stable. Reviewed the lab and the intake and output. And we ordered the rehabilitation as well. Assessment: Acute congestive heart failure on the top of chronic with the underlying cardiomyopathy and BMP impaired ejection fraction. Pulmonary hypertension Acute exacerbation of COPD on the top of chronic. With elevated pro-NT BMP. GERD with the heart burn mild decrease of appetite. Plan: We continue the current treatment by the cardiology and the pulmonary. Continue monitor her renal function. Depend on the recommendation farther action. Increased the Protonix to 40 mg twice a day. Objective - Vital Signs Vital signs: Vital Signs Temp 97.5 F L 09/11/19 07:00 Pulse 101 H 09/11/19 09:06 Resp 17 09/11/19 07:00 BP 142/92 09/11/19 07:00 Pulse Ox 96 09/11/19 07:00 Intake & Output 09/10/19 09/11/19 09/11/19 18:59 06:59 18:59 Output Total 500 2024 Balance - Weight 73.482 kg Output: Urine 500 2024 Other: # Voids 1 - Labs CBC & Chem 7: 09/09/19 21:00 09/11/19 07:13 Labs: Abnormal Lab Results - Last 24 Hours (Table) 09/10/19 09/10/19 09/11/19 Range/Units 16:35 20:46 06:46 PT (9.0-12.0) sec INR (<1.2) Sodium (137-145) mmol/L BUN (7-17) mg/dL Glucose (74-99) mg/dL POC Glucose (mg/dL) 196 H 258 H 162 H (75-99) mg/dL 09/11/19 09/11/19 09/11/19 Range/Units 07:13 07:13 11:36 PT 18.8 H (9.0-12.0) sec INR 1.9 H (<1.2) Sodium 136 L (137-145) mmol/L BUN 26 H (7-17) mg/dL Glucose 147 H (74-99) mg/dL POC Glucose (mg/dL) 173 H (75-99) mg/dL
--- NOTE | 2019-09-11 13:24 | P.PN ---
Subjective Progress Note Date: 09/11/19 Principal diagnosis: acute on chronic shortness of breath, multifactorial, related to acute exacerbation of COPD and chronic CHF This is an 84-year-old female patient who came in yesterday to the emergency department with worsening shortness of breath and generalized weakness. The patient was unable to breathe and walk properly and she was decompensating and for that reason she came into the hospital. She was also having increased cough and chest tightness and wheezing and she was also having increased lower extremity edema. She is known to me. I've seen her during a previous hospitalization back in May 2019. Note that at that time had echocardiac Brennan was repeated and there was new onset segmental wall motion abnormality and further drop in the left anterior ejection fraction down to 30% and there was obvious worsening of the pulmonary artery pressures. The patient was seen by cardiology. Her last catheterization that was done in 2014 showed normal coronaries. 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 Note that she also has atrial fibrillation which is chronic. Her INR was therapeutic at time of admission at 2.0. I noted some increased lower extremity edema. I noted that her proBNP level was above 4000. I also noted that her CPK was 44 with a troponin of 0.018. Her EKG was consistent with chronic atrial fibrillation with a controlled rate of 86. No acute abnormalities were noted. There was an incomplete right bundle branch block. For now, the patient will be treated for a combination of COPD and CHF exacerbation. She is already on IV Lasix patient be also started on IV Solu Medrol in addition to bronchodilators around the clock. PT/INR is therapeutic and the and correlation with warfarin will be continued. Chest x-ray showing thyromegaly with mild pulmonary vascular congestion. On 09/11/2019 patient seen in follow-up on general medical floor. She states she is still short of breath, but no acute distress, she is on 3 L of oxygen and the pulse ox of 96%. She remains on IV diuretics, she is in -2.5 L over last 24 hours, she still has 1+ pitting edema in her lower extremities, in her lung sounds are still congested and wheezy.VQ scan showed low probability for pulmonary embolism, patient remains on IV steroids, breathing treatments, Pulmicort, and Perforomist. patient continues on Coumadin chronic A. fib and her INR today is 1.9 Objective - Vital Signs Vital signs: Vital Signs Temp 97.5 F L 09/11/19 07:00 Pulse 101 H 09/11/19 09:06 Resp 17 09/11/19 07:00 BP 142/92 09/11/19 07:00 Pulse Ox 96 09/11/19 07:00 Intake & Output 09/10/19 09/11/19 09/11/19 18:59 06:59 18:59 Output Total 500 2024 Balance -500 -2024 Weight 73.482 kg Output: Urine 500 2024 Other: # Voids 1 - Exam GENERAL EXAM: Alert, very pleasant, 84-year-old white female on 3 L of oxygen with a pulse ox of 93%, comfortable in no apparent distress. HEAD: Normocephalic/atraumatic. EYES: Normal reaction of pupils, equal size. Conjunctiva pink, sclera white. NOSE: Clear with pink turbinates. THROAT: No erythema or exudates. NECK: No masses, no JVD, no thyroid enlargement, no adenopathy. CHEST: No chest wall deformity. Symmetrical expansion. LUNGS: Equal air entry with no crackles, wheeze, rhonchi or dullness. CVS: Irregular rate and rhythm, normal S1 and S2, no gallops, no murmurs, no rubs ABDOMEN: Soft, nontender. No hepatosplenomegaly, normal bowel sounds, no guarding or rigidity. EXTREMITIES: No clubbing, +1 edema, no cyanosis, 2+ pulses and upper and lower extremities. MUSCULOSKELETAL: Muscle strength and tone normal. SPINE: No scoliosis or deformity SKIN: No rashes CENTRAL NERVOUS SYSTEM: Alert and oriented -3. No focal deficits, tone is normal in all 4 extremities. PSYCHIATRIC: Alert and oriented -3. Appropriate affect. Intact judgment and insight. - Labs CBC & Chem 7: 09/09/19 21:00 09/11/19 07:13 Labs: Abnormal Lab Results - Last 24 Hours (Table) 09/10/19 09/10/19 09/11/19 Range/Units 16:35 20:46 06:46 PT (9.0-12.0) sec INR (<1.2) Sodium (137-145) mmol/L BUN (7-17) mg/dL Glucose (74-99) mg/dL POC Glucose (mg/dL) 196 H 258 H 162 H (75-99) mg/dL 09/11/19 09/11/19 09/11/19 Range/Units 07:13 07:13 11:36 PT 18.8 H (9.0-12.0) sec INR 1.9 H (<1.2) Sodium 136 L (137-145) mmol/L BUN 26 H (7-17) mg/dL Glucose 147 H (74-99) mg/dL POC Glucose (mg/dL) 173 H (75-99) mg/dL Assessment and Plan Plan: 1 acute on chronic shortness of breath. The patient's dyspnea is essentially multifactorial. She is in a combination of COPD and CHF exacerbation. Her COPD is in mild severity, nevertheless, she is having increased dyspnea chest tightness and wheezing consistent with COPD exacerbation. At the same time, this patient has developed worsening in CHF with segmental wall motion abnormalities and mitral regurgitation secondary pulmonary hypertension which is severe and this was noted on the most recent echocardiogram that was done in May 2019. She also has chronic atrial fibrillation. Cardiac catheter ization from 2015 has been essentially within normal limits with normal coronaries. Underlying CAD cannot be ruled out. Chest x-ray showing cardiomegaly and pulmonary vessel congestion and the patient is also having an elevated BNP level with a negative cardiac enzyme. As such, shortness of breath is chronic with acute decompensation due to the above-mentioned factors. 2 chronic atrial fibrillation, rate controlled in the PT/INR is therapeutic for now 3 chronic valvular heart disease with significant MR and severe pulmonary hypertension, ejection fraction is in order of 35% and the patient has segmental wall motion abnormalities and moderate to severe MR with severe pulmonary hypertension with a PA pressure of 63. 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 10 generalized weakness Plan: Continue with current medical treatment, IV Lasix, and nebulized bronchodilators, IV steroids, patient is still congested, bronchospastic and is still edematous. Continue Coumadin, 4 history of chronic atrial fibrillation. VQ scan showed low probability for pulmonary embolism. we will continue to follow repeat chest x-ray in the morning. I performed a history & physical examination of the patient and discussed their management with my nurse practitioner, Billie Amin. I reviewed the nurse practitioner's note and agree with the documented findings and plan of care. Lung sounds are positive for diffuse wheezes throughout the lung macdonald. The findings and the impression was discussed with the patient. I attest to the documentation by the nurse practitioner. Time with Patient: Less than 30
[2019-09-11] MEDS ORDERED: FUROSEMIDE 10 MG/ML 4 ML VIAL IV SCH (16:00)
[2019-09-11 16:40] LABS: Glucose,Whole Blood 187 mg/dL (75-99)
[2019-09-11] MEDS: ASPIRIN 81 MG PO SCH (16:46)
[2019-09-11] MEDS ORDERED: WARFARIN 3 MG TAB PO ONE (17:00)
[2019-09-11] MEDS: PANTOPRAZOLE 40 MG TABLET PO SCH (17:47)
[2019-09-11] MEDS: CALCIUM CARBONATE LIQUID 500 MG/5 ML CUP PO SCH (17:47)
[2019-09-11] MEDS: ATORVASTATIN 10 MG TAB PO SCH (20:29)
[2019-09-11] MEDS: EZETIMIBE 10 MG TAB PO SCH (20:29)
[2019-09-11 20:37] LABS: Glucose,Whole Blood 194 mg/dL (75-99)
[2019-09-12] MEDS: FUROSEMIDE 10 MG/ML 4 ML VIAL IV SCH ×2 (00:03→07:50)
[2019-09-12] MEDS: methylPREDNISolone SOD SUCCI 125 MG/2 ML VIAL IV SCH ×3 (00:03→12:08)
[2019-09-12] MEDS: HYDROcodone/APAP 5-325MG 1 EACH TAB PO PRN (06:20)
[2019-09-12 06:43] LABS: Glucose,Whole Blood 141 mg/dL (75-99)
[2019-09-12] MEDS: CALCIUM CARBONATE LIQUID 500 MG/5 ML CUP PO SCH ×3 (07:48→16:31)
[2019-09-12] MEDS: PANTOPRAZOLE 40 MG TABLET PO SCH ×2 (07:49→16:33)
[2019-09-12] MEDS: METOPROLOL TARTRATE 50 MG TAB PO SCH ×2 (07:49→21:24)
[2019-09-12] MEDS: ALLOPURINOL 100 MG TAB PO SCH (07:50)
[2019-09-12] MEDS: EZETIMIBE 10 MG TAB PO SCH (07:50)
[2019-09-12] MEDS: SPIRONOLACTONE 25 MG TAB PO SCH (07:50)
[2019-09-12] MEDS: DOCUSATE 100 MG CAP PO SCH ×2 (07:50→16:31)
[2019-09-12] MEDS: LISINOPRIL 2.5 MG TAB PO SCH (07:50)
[2019-09-12] MEDS: INSULIN ASPART (NovoLOG) 100 UNIT/ML VIAL SQ SCH ×4 (07:59→21:24)
--- NOTE | 2019-09-12 07:59 | XR ---
EXAMINATION TYPE: XR chest 2V DATE OF EXAM: 09/12/2019 COMPARISON: 09/09/2019 TECHNIQUE: PA and lateral views submitted. HISTORY: Shortness of breath FINDINGS: No focal pneumonia or pneumothorax. Heart is enlarged and is hypertrophic and degenerative changes sp ine. Biapical pleural thickening. Hyperinflation suggests COPD. Degree of chronic interstitial lung d isease suspected. Atherosclerotic change and ectasia of the aorta. Arthropathy of the shoulders with diffuse osteopenia. Degenerative change of the spine. Mild blunting of both costophrenic angles. IMPRESSION: 1. COPD with cardiomegaly and suspected chronic interstitial lung disease. Tiny bilateral effusions o r pleural thickening noted..
[2019-09-12] MEDS: LORazepam 0.5 MG TAB PO SCH ×2 (08:28→21:24)
[2019-09-12] MEDS: SYMBICORT 80-4.5 MCG INHALER INHALATION SCH ×2 (08:28→20:04)
[2019-09-12] MEDS: BUDESONIDE 0.5 MG/2 ML NEBU INHALATION SCH ×2 (08:28→20:00)
[2019-09-12] MEDS: IPRATROPIUM-ALBUTEROL 3 ML NEB INHALATION SCH ×4 (08:28→20:00)
[2019-09-12 08:41] LABS: Calcium 9.5 mg/dL (8.4-10.2)
[2019-09-12 08:45] LABS: INR 4.7 (<1.2); Prothrombin Time 46.4 sec (9.0-12.0)
[2019-09-12] MEDS ORDERED: POTASSIUM CHLORIDE ER 20 MEQ TAB.ER PO STA (09:55)
--- NOTE | 2019-09-12 10:31 | P.PN ---
Subjective This is a pleasant 84-year-old female past medical history significant for chronic persistent atrial fibrillation on fdc anti-coagulation with coumadin, chronic systolic heart failure, valvular heart disease, COPD, hypertension, dyslipidemia and pulmonary hypertension. She follows in the office with Dr. Rendon. She is seen and examined sitting up in bed. She is dyspneci with conversation. She states her breathing does not seem to have improved since admission. She has no chest pain, dizziness or palpitations. Blood pressure 14 2/92 heart rate 86 afebrile and maintaining oxygen saturation on nasal cannula. Laboratory data reviewed, INR 1.9, sodium 136, potassium 3.6, creatinine 0.89. Output documented as 2525 ml over the previous 24 hours. Currently maintained on lasix 40 mg IV BID, aldactone 25 mg daily, aspirin 81 mg daily, atorvastatin 10 mg daily, zetia 10 m gdaily, lisinopril 2.5 mg daily, lopressor 50 mg BID and IV steroids. Most recent catheterization 06/22 revealed mildly calcified arteries with mild non-obstructive disease of the LAD and RCA. 09/12/2019 She is seen and examined sitting up in bed eating breakfast. She states she doesn't feel any better than yesterday. Repeat chest xray this morning reveals COPD with cardiomegaly and chronic interstitial lung disease with tiny bilateral pleural effusions and thickening. Blood pressure 130/78 heart rate 104 afebrile and maintaining oxygen saturation on nasal cannula. Laboratory data reviewed, INR 4.7, sodium 140, potassium 3.0, creatinine 0.84. Currently maintained on lasix 40 mg IV TID. Lower extremity edema has improved and she no longer has JVD. She denies chest pain, dizziness or palpitations. GENERAL: Well-appearing, well-nourished and in no acute distress. NECK: Supple with bilateral JVD, no thyromegaly. LUNGS: Bibasilar rales, expiratory wheezes throughout, no rhonchi. Respiration equal and unlabored. HEART: Irregular rate and rhythm with systolic ejection murmur at the left sternal border, no rubs or gallops. S1 and S2 heard. EXTREMITIES: Normal range of motion, no lower extremity edema. No clubbing or cyanosis. Peripheral pulses intact. ASSESSMENT Acute on chronic systolic congestive heart failure, EF 35-40% Non-ischemic cardiomyopathy Chronic persistent atrial fibrillation on fdc anti-coagulation with coumadin Supra-therapeutic INR Valvular heart disease, severe MR and TR Pulmonary hypertension, RVSP 63 mmHg COPD Hypertension Dyslipidemia PLAN Hold Coumadin today. Give potassium 40 MEQ once today. Heat failure is improving. Ongoing symptoms of shortness of breath likely secondary to COPD. Transition to oral diuretics. Repeat BMP in the morning. Nurse Practitioner note has been reviewed, I agree with a documented findings and plan of care. Patient was seen and examined. Objective - Vital Signs Vital signs: Vital Signs Temp 97.9 F 09/12/19 07:00 Pulse 104 H 09/12/19 08:47 Resp 17 09/12/19 07:50 BP 130/78 09/12/19 07:00 Pulse Ox 97 09/12/19 07:00 Intake & Output 09/11/19 09/12/19 09/12/19 18:59 06:59 18:59 Weight 72.8 kg - Labs CBC & Chem 7: 09/09/19 21:00 09/12/19 07:43 Labs: Abnormal Lab Results - Last 24 Hours (Table) 09/11/19 09/11/19 09/11/19 Range/Units 11:36 16:37 20:18 PT (9.0-12.0) sec INR (<1.2) Potassium (3.5-5.1) mmol/L Chloride (98-107) mmol/L Carbon Dioxide (22-30) mmol/L BUN (7-17) mg/dL Glucose (74-99) mg/dL POC Glucose (mg/dL) 173 H 187 H 194 H (75-99) mg/dL 09/12/19 09/12/19 09/12/19 Range/Units 06:42 07:43 07:43 PT 46.4 H (9.0-12.0) sec INR 4.7 H (<1.2) Potassium 3.0 L (3.5-5.1) mmol/L Chloride 94 L (98-107) mmol/L Carbon Dioxide 35 H (22-30) mmol/L BUN 32 H (7-17) mg/dL Glucose 136 H (74-99) mg/dL POC Glucose (mg/dL) 141 H (75-99) mg/dL
[2019-09-12 11:50] LABS: Glucose,Whole Blood 150 mg/dL (75-99)
--- NOTE | 2019-09-12 12:06 | P.PN ---
Subjective Progress Note Date: 09/12/19 Principal diagnosis: acute on chronic shortness of breath, multifactorial, related to acute exacerbation of COPD and chronic CHF This is an 84-year-old female patient who came in yesterday to the emergency department with worsening shortness of breath and generalized weakness. The patient was unable to breathe and walk properly and she was decompensating and for that reason she came into the hospital. She was also having increased cough and chest tightness and wheezing and she was also having increased lower extremity edema. She is known to me. I've seen her during a previous hospitalization back in May 2019. Note that at that time had echocardiac Brennan was repeated and there was new onset segmental wall motion abnormality and further drop in the left anterior ejection fraction down to 30% and there was obvious worsening of the pulmonary artery pressures. The patient was seen by cardiology. Her last catheterization that was done in 2014 showed normal coronaries. 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 Note that she also has atrial fibrillation which is chronic. Her INR was therapeutic at time of admission at 2.0. I noted some increased lower extremity edema. I noted that her proBNP level was above 4000. I also noted that her CPK was 44 with a troponin of 0.018. Her EKG was consistent with chronic atrial fibrillation with a controlled rate of 86. No acute abnormalities were noted. There was an incomplete right bundle branch block. For now, the patient will be treated for a combination of COPD and CHF exacerbation. She is already on IV Lasix patient be also started on IV Solu Medrol in addition to bronchodilators around the clock. PT/INR is therapeutic and the and correlation with warfarin will be continued. Chest x-ray showing thyromegaly with mild pulmonary vascular congestion. On 09/11/2019 patient seen in follow-up on general medical floor. She states she is still short of breath, but no acute distress, she is on 3 L of oxygen and the pulse ox of 96%. She remains on IV diuretics, she is in -2.5 L over last 24 hours, she still has 1+ pitting edema in her lower extremities, in her lung sounds are still congested and wheezy.VQ scan showed low probability for pulmonary embolism, patient remains on IV steroids, breathing treatments, Pulmicort, and Perforomist. patient continues on Coumadin chronic A. fib and her INR today is 1.9 On 09/12/2019 patient seen in follow-up on general medical floor. She states she is not feeling good today, she is sleepy, apparently patient did not sleep last night related to indigestion. But no worsening breathing, she is currently on 3 L of oxygen with a pulse ox of 97%, no fever or chills, breathing is nonlabored. She is complaining of difficulty swallowing, no thrush noted in the oropharyngeal cavity. Today's chest x-ray has been reviewed showing COPD with cardiomegaly and suspected chronic interstitial lung disease, with tiny bilateral effusions. Patient continues on oral Lasix 80 mg twice daily, she is a -2.5 L over the last 24 hours. Today's INR is 4.7, sodium is 140, potassium is 3.0, chloride is 94, CO2 is 35, B1 is 32, creatinine 0.84 Objective - Vital Signs Vital signs: Vital Signs Temp 97.9 F 09/12/19 07:00 Pulse 104 H 09/12/19 08:47 Resp 17 09/12/19 07:50 BP 130/78 09/12/19 07:00 Pulse Ox 97 09/12/19 07:00 Intake & Output 09/11/19 09/12/19 09/12/19 18:59 06:59 18:59 Weight 72.8 kg - Exam GENERAL EXAM: Alert, very pleasant, 84-year-old white female on 3 L of oxygen with a pulse ox of 97%, comfortable in no apparent distress. HEAD: Normocephalic/atraumatic. EYES: Normal reaction of pupils, equal size. Conjunctiva pink, sclera white. NOSE: Clear with pink turbinates. THROAT: No erythema or exudates. NECK: No masses, no JVD, no thyroid enlargement, no adenopathy. CHEST: No chest wall deformity. Symmetrical expansion. LUNGS: Equal air entry with no crackles, wheeze, rhonchi or dullness. CVS: Irregular rate and rhythm, normal S1 and S2, no gallops, no murmurs, no rubs ABDOMEN: Soft, nontender. No hepatosplenomegaly, normal bowel sounds, no guarding or rigidity. EXTREMITIES: No clubbing, +1 edema, no cyanosis, 2+ pulses and upper and lower extremities. MUSCULOSKELETAL: Muscle strength and tone normal. SPINE: No scoliosis or deformity SKIN: No rashes CENTRAL NERVOUS SYSTEM: Alert and oriented -3. No focal deficits, tone is normal in all 4 extremities. PSYCHIATRIC: Alert and oriented -3. Appropriate affect. Intact judgment and insight. - Labs CBC & Chem 7: 09/09/19 21:00 09/12/19 07:43 Labs: Abnormal Lab Results - Last 24 Hours (Table) 09/11/19 09/11/19 09/12/19 Range/Units 16:37 20:18 06:42 PT (9.0-12.0) sec INR (<1.2) Potassium (3.5-5.1) mmol/L Chloride (98-107) mmol/L Carbon Dioxide (22-30) mmol/L BUN (7-17) mg/dL Glucose (74-99) mg/dL POC Glucose (mg/dL) 187 H 194 H 141 H (75-99) mg/dL 09/12/19 09/12/19 09/12/19 Range/Units 07:43 07:43 11:49 PT 46.4 H (9.0-12.0) sec INR 4.7 H (<1.2) Potassium 3.0 L (3.5-5.1) mmol/L Chloride 94 L (98-107) mmol/L Carbon Dioxide 35 H (22-30) mmol/L BUN 32 H (7-17) mg/dL Glucose 136 H (74-99) mg/dL POC Glucose (mg/dL) 150 H (75-99) mg/dL Assessment and Plan Plan: 1 acute on chronic shortness of breath. The patient's dyspnea is essentially multifactorial. She is in a combination of COPD and CHF exacerbation. Her COPD is in mild severity, nevertheless, she is having increased dyspnea chest tightness and wheezing consistent with COPD exacerbation. At the same time, this patient has developed worsening in CHF with segmental wall motion abnormalities and mitral regurgitation secondary pulmonary hypertension which is severe and this was noted on the most recent echocardiogram that was done in May 2019. She also has chronic atrial fibrillation. Cardiac catheterization from 2014 has been essentially within normal limits with normal coronaries. Underlying CAD cannot be ruled out. Chest x-ray showing cardiomegaly and pulmonary vessel congestion and the patient is also having an elevated BNP level with a negative cardiac enzyme. As such, shortness of breath is chronic with acute decompensation due to the above-mentioned factors. 2 chronic atrial fibrillation, rate controlled in the PT/INR is supratherapeutic 3 chronic valvular heart disease with significant MR and severe pulmonary hypertension, ejection fraction is in order of 35% and the patient has segmental wall motion abnormalities and moderate to severe MR with severe pulmonary hype rtension with a PA pressure of 63. 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 10 generalized weakness 11 dysphagia Plan: Continue with current medical treatment, no worsening dyspnea, we will drop the dose of IV steroids to 40 mg every 8 hours, patient has been switched over to oral diuretics, she has developed hypokalemia and volume contraction alkalosis, she is in negative fluid balance. Today's chest x-ray has been reviewed showing chronic interstitial lung disease, and tiny pleural effusions. Patient is complaining of dysphagia, will obtain speech therapy evaluation and modified barium swallow. We'll continue to follow I performed a history & physical examination of the patient and discussed their management with my nurse practitioner, Billie Amin. I reviewed the nurse practitioner's note and agree with the documented findings and plan of care. Lung sounds are positive for diffuse wheezes throughout the lung macdonald. The findings and the impression was discussed with the patient. I attest to the documentation by the nurse practitioner. Time with Patient: Less than 30
--- NOTE | 2019-09-12 15:18 | FL ---
EXAMINATION TYPE: FL barium swallow w video DATE OF EXAM: 09/12/2019 MODIFIED SWALLOW / DEGLUTITION STUDY CLINICAL HISTORY: Dysphagia. TECHNIQUE: Deglutition study is performed utilizing thin liquid barium, honey and nectar thick liqui d barium, barium thick applesauce, and barium coated cracker. 2.11 seconds of fluoroscopy time was ut ilized with 0 fluoroscopic images saved as the examination was video recorded. COMPARISON: None. FINDINGS: The oral and pharyngeal phases show satisfactory initiation and propagation with all modali ties tested. Normal mastication is seen with solid modalities tested. Trace silent aspiration was se en with the thin barium consistency. The patient was noted to drink large boluses. Swallowing became more controlled with smaller boluses. Poor epiglottic closure, premature spill, and pharyngeal residu al was seen with the thicker consistencies without aspiration or penetration. IMPRESSION: Trace silent aspiration with the thin barium consistency and other findings as above. Pl ease refer to speech therapist notes for further details if necessary.
[2019-09-12] MEDS ORDERED: FUROSEMIDE 10 MG/ML 4 ML VIAL IV SCH (16:00)
[2019-09-12] MEDS ORDERED: FUROSEMIDE 80 MG TAB PO SCH (16:00)
[2019-09-12] MEDS: ASPIRIN 81 MG PO SCH (16:31)
[2019-09-12] MEDS: methylPREDNISolone SOD SUCCI 40 MG/ML 1 ML VIAL IV SCH (16:31)
[2019-09-12] MEDS: FUROSEMIDE 80 MG TAB PO SCH (16:31)
[2019-09-12 16:47] LABS: Glucose,Whole Blood 190 mg/dL (75-99)
--- NOTE | 2019-09-12 17:25 | P.PN ---
Subjective Progress Note Date: 09/12/19 Principal diagnosis: Principal diagnoses: #1 acute congestive heart failure on the top of chronic. #2 COPD exacerbation. #3 pulmonary fibrosis with interstitial lung disease. #4 chronic hypoxemia secondary to the above. #5 trace silent aspiration with the standing barium consistency, swallowing become more controlled with smaller boluses. #6 INR 4.7 Coumadin withheld tonight. #7 left ventricular systolic function moderately impaired with ejection fraction 35-40 by the echo done on 05/28/2019. Apical inferior left ventricular wall motion hypokinetic and the apical septum of the left ventricle wall motion is hypokinetic right ventricle mild to moderate enlargement, next is moderate to severe mitral regurg severe tricuspid regurg severe pulmonary hypertension right ventricular systolic pressure 63.84 mmHg., Atrial fibrillation persistent The echocardiogram as above on 05/28/2019. Patient seen and evaluated today on 09/12/2019. Patient seen by pulmonary and cardiology adjusted for her medication. Laboratory indicating hypokalemia which is covered by the cardiology team. She had also a chest x-ray which indicating interstitial lung disease as well as she had notified the swallow and that showed trace silent aspiration with thin barium consistency, swallowing become more controlled with the smaller bolus. There order of Dr. Gaxiola with the barium swallow and the video. Patient's conscious alert oriented. The HEENT no change. Neck supple and no JVD no thyromegaly no lymphadenopathy. Chest improved air entry with the diuresis with presence of an inspiratory crackle on the lower basis with the underlying interstitial lung disease. Heart: Irregular irregularities with the atrial fibrillation currently controlled ventricular response. Abdomen is soft positive bowel sounds no tenderness. Extremities positive pulses and significant improvement on the edema of the lower extremities. Neurologically stable. Assessment: Patient's has been significant improvement progressively, physical therapy was ordered. And we will continue pulmonary and cardiology their management with the advanced cardiac disease and lung disease. Plan: Will continue monitoring the patient, I did talk to the patient extensively and she stated that she wasn't to go home if the time for discharge and we will be following the pulmonary and cardiology at the time of clearance to be discharged. We'll hold the Coumadin today, INR 4.7 to avoid bleeding. And the PT and INR on the daily basis. Check tomorrow electrolyte to see of the potassium has been stabilized. Objective - Vital Signs Vital signs: Vital Signs Temp 97.5 F L 09/12/19 15:00 Pulse 100 09/12/19 15:00 Resp 17 09/12/19 15:00 BP 125/86 09/12/19 15:00 Pulse Ox 98 09/12/19 15:00 Intake & Output 09/11/19 09/12/19 09/12/19 18:59 06:59 18:59 Weight 72.8 kg - Labs CBC & Chem 7: 09/09/19 21:00 09/12/19 07:43 Labs: Abnormal Lab Results - Last 24 Hours (Table) 09/11/19 09/12/19 09/12/19 Range/Units 20:18 06:42 07:43 PT 46.4 H (9.0-12.0) sec INR 4.7 H (<1.2) Potassium (3.5-5.1) mmol/L Chloride (98-107) mmol/L Carbon Dioxide (22-30) mmol/L BUN (7-17) mg/dL Glucose (74-99) mg/dL POC Glucose (mg/dL) 194 H 141 H (75-99) mg/dL 09/12/19 09/12/19 09/12/19 Range/Units 07:43 11:49 16:46 PT (9.0-12.0) sec INR (<1.2) Potassium 3.0 L (3.5-5.1) mmol/L Chloride 94 L (98-107) mmol/L Carbon Dioxide 35 H (22-30) mmol/L BUN 32 H (7-17) mg/dL Glucose 136 H (74-99) mg/dL POC Glucose (mg/dL) 150 H 190 H (75-99) mg/dL
[2019-09-12 21:12] LABS: Glucose,Whole Blood 144 mg/dL (75-99)
[2019-09-12] MEDS: ATORVASTATIN 10 MG TAB PO SCH (21:24)
[2019-09-13] MEDS: methylPREDNISolone SOD SUCCI 40 MG/ML 1 ML VIAL IV SCH ×3 (00:04→21:26)
[2019-09-13 06:54] LABS: Glucose,Whole Blood 164 mg/dL (75-99)
[2019-09-13] MEDS: BUDESONIDE 0.5 MG/2 ML NEBU INHALATION SCH ×2 (07:36→20:57)
[2019-09-13] MEDS: IPRATROPIUM-ALBUTEROL 3 ML NEB INHALATION SCH ×4 (07:36→20:57)
[2019-09-13] MEDS: PANTOPRAZOLE 40 MG TABLET PO SCH ×2 (07:50→17:26)
[2019-09-13] MEDS: ALLOPURINOL 100 MG TAB PO SCH (07:50)
[2019-09-13] MEDS: DOCUSATE 100 MG CAP PO SCH ×2 (07:50→17:26)
[2019-09-13] MEDS: INSULIN ASPART (NovoLOG) 100 UNIT/ML VIAL SQ SCH ×4 (07:50→21:27)
[2019-09-13] MEDS: METOPROLOL TARTRATE 50 MG TAB PO SCH ×2 (07:51→21:26)
[2019-09-13] MEDS: LISINOPRIL 2.5 MG TAB PO SCH (07:51)
[2019-09-13] MEDS: SPIRONOLACTONE 25 MG TAB PO SCH (07:52)
[2019-09-13] MEDS: CALCIUM CARBONATE LIQUID 500 MG/5 ML CUP PO SCH ×3 (08:00→17:26)
[2019-09-13] MEDS: FUROSEMIDE 80 MG TAB PO SCH (08:00)
[2019-09-13 09:07] LABS: Prothrombin Time 76.1 sec (9.0-12.0)
[2019-09-13 09:08] LABS: Calcium 9.3 mg/dL (8.4-10.2); Potassium 5.1 mmol/L (3.5-5.1)
[2019-09-13] MEDS: LORazepam 0.5 MG TAB PO SCH ×2 (09:14→21:26)
[2019-09-13 09:47] LABS: INR 7.4 (<1.2)
--- NOTE | 2019-09-13 10:10 | P.PN ---
Subjective Progress Note Date: 09/13/19 This is dictation progress note date of service 09/13/2019. Patient seen today and evaluated. Still wheezing bilaterally. No specific complaint. She had his swallow study yesterday with the underlying minimal penetration and advised to have a small boluses of renal. Patient has seen exacerbation of COPD and also the chest x-ray indicating interstitial pulmonary fibrosis. On admission found to have congestive heart failure acute on the top of chronic with the underlying history of impaired ejection fraction with the underlying ischemic cardiomyopathy. Underwent diuresis and was very successful and the cardiology subsequently adjusted her Lasix from IV to by mouth now. Vital signs stable, Hyperglycemia has been controlled with the insulin coverage, due to effect of the steroid on the patient however patient did not take any insulin or oral hypoglycemic agent in the outpatient or in the past due to return the blood sugar to normalized after discontinuation of steroid. On examination: Conscious alert oriented 3 still has shortness of breath. Her HEENT was negative Neck was supple no JVD no lymphadenopathy trachea midline. Chest was markedly improved irradiation with the underlying basilar inspiratory crackle with the underlying history of pulmonary interstitial fibrosis. Heart she has chronic atrial fibrillation currently stable with the impaired ejection fraction and on admission NTE pro-BMP was elevated. Abdomen positive bowel sounds and no tenderness, she had history of GERD and we adjusted the medication and currently no symptoms. Extremities currently resolved edema with the significant diuresis. Patient has rehabilitation now and she able to move and go to the bathroom with the few steps. Neurologically stable. Assessment: Patient is recovering but still wheezing. Plan: We'll continue rehabilitation, and will be waiting for the opinion of cardiology and pulmonary with the future plan for home discharge. Objective - Vital Signs Vital signs: Vital Signs Temp 97.5 F L 09/13/19 07:00 Pulse 101 H 09/13/19 08:00 Resp 20 09/13/19 08:00 BP 139/87 09/13/19 07:00 Pulse Ox 97 09/13/19 07:00 Intake & Output 09/12/19 09/13/19 09/13/19 18:59 06:59 18:59 Intake Total 200 Output Total 1250 Balance -1050 Weight 63.5 kg Intake: Oral 200 Output: Urine 1250 - Labs CBC & Chem 7: 09/09/19 21:00 09/13/19 07:17 Labs: Abnormal Lab Results - Last 24 Hours (Table) 09/12/19 09/12/19 09/12/19 Range/Units 11:49 16:46 20:52 PT (9.0-12.0) sec INR (<1.2) Chloride (98-107) mmol/L Carbon Dioxide (22-30) mmol/L BUN (7-17) mg/dL Glucose (74-99) mg/dL POC Glucose (mg/dL) 150 H 190 H 144 H (75-99) mg/dL 09/13/19 09/13/19 09/13/19 Range/Units 06:53 07:17 07:17 PT 76.1 H (9.0-12.0) sec INR 7.4 H* (<1.2) Chloride 93 L (98-107) mmol/L Carbon Dioxide 40 H (22-30) mmol/L BUN 37 H (7-17) mg/dL Glucose 129 H (74-99) mg/dL POC Glucose (mg/dL) 164 H (75-99) mg/dL
[2019-09-13] MEDS ORDERED: PHYTONADIONE ORAL 5 MG/5 ML ORAL.SYRG PO STA (10:37)
[2019-09-13 11:44] LABS: Glucose,Whole Blood 210 mg/dL (75-99)
--- NOTE | 2019-09-13 11:55 | P.PN ---
Subjective Progress Note Date: 09/13/19 Principal diagnosis: acute on chronic shortness of breath, multifactorial, related to acute exacerbation of COPD and chronic CHF This is an 84-year-old female patient who came in yesterday to the emergency department with worsening shortness of breath and generalized weakness. The patient was unable to breathe and walk properly and she was decompensating and for that reason she came into the hospital. She was also having increased cough and chest tightness and wheezing and she was also having increased lower extremity edema. She is known to me. I've seen her during a previous hospitalization back in May 2019. Note that at that time had echocardiac Brennan was repeated and there was new onset segmental wall motion abnormality and further drop in the left anterior ejection fraction down to 30% and there was obvious worsening of the pulmonary artery pressures. The patient was seen by cardiology. Her last catheterization that was done in 2014 showed normal coronaries. 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 Note that she also has atrial fibrillation which is chronic. Her INR was therapeutic at time of admission at 2.0. I noted some increased lower extremity edema. I noted that her proBNP level was above 4000. I also noted that her CPK was 44 with a troponin of 0.018. Her EKG was consistent with chronic atrial fibrillation with a controlled rate of 86. No acute abnormalities were noted. There was an incomplete right bundle branch block. For now, the patient will be treated for a combination of COPD and CHF exacerbation. She is already on IV Lasix patient be also started on IV Solu Medrol in addition to bronchodilators around the clock. PT/INR is therapeutic and the and correlation with warfarin will be continued. Chest x-ray showing thyromegaly with mild pulmonary vascular congestion. On 09/11/2019 patient seen in follow-up on general medical floor. She states she is still short of breath, but no acute distress, she is on 3 L of oxygen and the pulse ox of 96%. She remains on IV diuretics, she is in -2.5 L over last 24 hours, she still has 1+ pitting edema in her lower extremities, in her lung sounds are still congested and wheezy.VQ scan showed low probability for pulmonary embolism, patient remains on IV steroids, breathing treatments, Pulmicort, and Perforomist. patient continues on Coumadin chronic A. fib and her INR today is 1.9 On 09/12/2019 patient seen in follow-up on general medical floor. She states she is not feeling good today, she is sleepy, apparently patient did not sleep last night related to indigestion. But no worsening breathing, she is currently on 3 L of oxygen with a pulse ox of 97%, no fever or chills, breathing is nonlabored. She is complaining of difficulty swallowing, no thrush noted in the oropharyngeal cavity. Today's chest x-ray has been reviewed showing COPD with cardiomegaly and suspected chronic interstitial lung disease, with tiny bilateral effusions. Patient continues on oral Lasix 80 mg twice daily, she is a -2.5 L over the last 24 hours. Today's INR is 4.7, sodium is 140, potassium is 3.0, chloride is 94, CO2 is 35, B1 is 32, creatinine 0.84 On 09/13/2019 patient seen in follow-up on general medical floor. She is feeling better today, although still has shortness of breath with exertion, she is alert and oriented 3, lung sounds have some bibasilar crackles. Edema has improved, patient remains on diuretics, she is in -1 L over last 24 hours. Her weight is trending down. Today's labs have been reviewed showing INR of 7.4, and patient received 1 mg of oral vitamin K. Coumadin is on hold. Current dose of Lasix is 80 mg orally twice a day. Today's labs have been reviewed showing CO2 of 40, BUN of 37 and creatinine of 0.98. Objective - Vital Signs Vital signs: Vital Signs Temp 97.5 F L 09/13/19 07:00 Pulse 96 09/13/19 11:47 Resp 20 09/13/19 08:00 BP 139/87 09/13/19 07:00 Pulse Ox 97 09/13/19 07:00 Intake & Output 09/12/19 09/13/19 09/13/19 18:59 06:59 18:59 Intake Total 200 Output Total 1250 Balance -1050 Weight 63.5 kg Intake: Oral 200 Output: Urine 1250 - Exam GENERAL EXAM: Alert, very pleasant, 84-year-old white female on 3 L of oxygen with a pulse ox of 97%, comfortable in no apparent distress. HEAD: Normocephalic/atraumatic. EYES: Normal reaction of pupils, equal size. Conjunctiva pink, sclera white. NOSE: Clear with pink turbinates. THROAT: No erythema or exudates. NECK: No masses, no JVD, no thyroid enlargement, no adenopathy. CHEST: No chest wall deformity. Symmetrical expansion. LUNGS: Equal air entry with no crackles, wheeze, rhonchi or dullness. CVS: Irregular rate and rhythm, normal S1 and S2, no gallops, no murmurs, no rubs ABDOMEN: Soft, nontender. No hepatosplenomegaly, normal bowel sounds, no guarding or rigidity. EXTREMITIES: No clubbing, +1 edema, no cyanosis, 2+ pulses and upper and lower extremities. MUSCULOSKELETAL: Muscle strength and tone normal. SPINE: No scoliosis or deformity SKIN: No rashes CENTRAL NERVOUS SYSTEM: Alert and oriented -3. No focal deficits, tone is normal in all 4 extremities. PSYCHIATRIC: Alert and oriented -3. Appropriate affect. Intact judgment and insight. - Labs CBC & Chem 7: 09/09/19 21:00 09/13/19 07:17 Labs: Abnormal Lab Results - Last 24 Hours (Table) 09/12/19 09/12/19 09/12/19 Range/Units 11:49 16:46 20:52 PT (9.0-12.0) sec INR (<1.2) Chloride (98-107) mmol/L Carbon Dioxide (22-30) mmol/L BUN (7-17) mg/dL Glucose (74-99) mg/dL POC Glucose (mg/dL) 150 H 190 H 144 H (75-99) mg/dL 09/13/19 09/13/19 09/13/19 Range/Units 06:53 07:17 07:17 PT 76.1 H (9.0-12.0) sec INR 7.4 H* (<1.2) Chloride 93 L (98-107) mmol/L Carbon Dioxide 40 H (22-30) mmol/L BUN 37 H (7-17) mg/dL Glucose 129 H (74-99) mg/dL POC Glucose (mg/dL) 164 H (75-99) mg/dL 09/13/19 Range/Units 11:42 PT (9.0-12.0) sec INR (<1.2) Chloride (98-107) mmol/L Carbon Dioxide (22-30) mmol/L BUN (7-17) mg/dL Glucose (74-99) mg/dL POC Glucose (mg/dL) 210 H (75-99) mg/dL Assessment and Plan Plan: 1 acute on chronic shortness of breath. The patient's dyspnea is essentially multifactorial. She is in a combination of COPD and CHF exacerbation. Her COPD is in mild severity, nevertheless, she is having increased dyspnea chest tightness and wheezing consistent with COPD exacerbation. At the same time, this patient has developed worsening in CHF with segmental wall motion abnormalities and mitral regurgitation secondary pulmonary hypertension which is severe and this was noted on the most recent echocardiogram that was done in May 2019. She also has chronic atrial fibrillation. Cardiac catheterization from 2014 has been essentially within normal limits with normal coronaries. Underlying CAD cannot be ruled out. Chest x-ray showing cardiomegaly and pulmonary vessel congestion and the patient is also having an elevated BNP level with a negative cardiac enzyme. As such, shortness of breath is chronic with acute decompensation due to the above-mentioned factors. 2 chronic atrial fibrillation, rate controlled in the PT/INR is supratherapeutic 3 chronic valvular heart disease with significant MR and severe pulmonary hypertension, ejection fraction is in order of 35% and the patient has segmental wall motion abnormalities and moderate to severe MR with severe pulmonary hypertension with a PA pressure of 63. 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 10 generalized weakness 11 dysphagia Plan: We'll cut back the Lasix dose to 40 mg twice a day, cut back the Solu-Medrol, continue with nebulized treatments, patient is diuresing, lower extremity edema has improved, vital signs remain stable, yesterday's chest x-ray showed chronic interstitial lung disease, and only tiny bilateral effusions. Could be considered for discharge to [facility] today or tomorrow. We'll continue to follow I performed a history & physical examination of the patient and discussed their management with my nurse practitioner, Billie Amin. I reviewed the nurse practitioner's note and agree with the documented findings and plan of care. Lung sounds are positive for diffuse wheezes throughout the lung macdonald. The findings and the impression was discussed with the patient. I attest to the documentation by the nurse practitioner. Time with Patient: Less than 30
--- NOTE | 2019-09-13 13:01 | P.PN ---
Subjective This is a pleasant 84-year-old female past medical history significant for chronic persistent atrial fibrillation on jail anti-coagulation with coumadin, chronic systolic heart failure, valvular heart disease, COPD, hypertension, dyslipidemia and pulmonary hypertension. She follows in the office with Dr. Rendon. She is seen and examined sitting up in bed. She continues to be dyspneic. She has just gotten done cleaning up with the nurse and attributes this activity to increasing her dyspnea. She denies chest pain, dizziness or p alpitations. Blood pressure 139/87 heart rate 96 afebrile and maintaining oxygen saturation on nasal cannula. She does not feel comfortable going home at this time given her ongoing shortness of breath. Laboratory data reviewed, INR 704, sodium 140 , ptassium 5.1, creatinine 0.98. Coumadin was held last night. GENERAL: Well-appearing, well-nourished and in no acute distress. NECK: Supple with bilateral JVD, no thyromegaly. LUNGS: Scattered expiratory wheezes throughout, no rhonchi or rales. Respiration equal and unlabored. HEART: Irregular rate and rhythm with systolic ejection murmur at the left sternal border, no rubs or gallops. S1 and S2 heard. EXTREMITIES: Normal range of motion, no lower extremity edema. No clubbing or cyanosis. Peripheral pulses intact. ASSESSMENT Acute on chronic systolic congestive heart failure, EF 35-40% Non-ischemic cardiomyopathy Chronic persistent atrial fibrillation on lobsterman anti-coagulation with coumadin Supra-therapeutic INR Valvular heart disease, severe MR and TR Pulmonary hypertension, RVSP 63 mmHg COPD Hypertension Dyslipidemia PLAN Diruretics were decreased from home dose by pulmonary care team. Vitamin K given for hypercoagulability. Nurse Practitioner note has been reviewed, I agree with a documented findings and plan of care. Patient was seen and examined. Objective - Vital Signs Vital signs: Vital Signs Temp 97.5 F L 09/13/19 07:00 Pulse 96 09/13/19 11:47 Resp 20 09/13/19 08:00 BP 139/87 09/13/19 07:00 Pulse Ox 97 09/13/19 07:00 Intake & Output 09/12/19 09/13/19 09/13/19 18:59 06:59 18:59 Intake Total 200 Output Total 1250 Balance -1050 Weight 63.5 kg Intake: Oral 200 Output: Urine 1250 - Labs CBC & Chem 7: 09/09/19 21:00 09/13/19 07:17 Labs: Abnormal Lab Results - Last 24 Hours (Table) 09/12/19 09/12/19 09/13/19 Range/Units 16:46 20:52 06:53 PT (9.0-12.0) sec INR (<1.2) Chloride (98-107) mmol/L Carbon Dioxide (22-30) mmol/L BUN (7-17) mg/dL Glucose (74-99) mg/dL POC Glucose (mg/dL) 190 H 144 H 164 H (75-99) mg/dL 09/13/19 09/13/19 09/13/19 Range/Units 07:17 07:17 11:42 PT 76.1 H (9.0-12.0) sec INR 7.4 H* (<1.2) Chloride 93 L (98-107) mmol/L Carbon Dioxide 40 H (22-30) mmol/L BUN 37 H (7-17) mg/dL Glucose 129 H (74-99) mg/dL POC Glucose (mg/dL) 210 H (75-99) mg/dL
[2019-09-13 16:54] LABS: Glucose,Whole Blood 111 mg/dL (75-99)
[2019-09-13] MEDS: FUROSEMIDE 40 MG TAB PO SCH (17:26)
[2019-09-13] MEDS: ASPIRIN 81 MG PO SCH (17:26)
[2019-09-13] MEDS ORDERED: WARFARIN 0.5 MG TAB PO ONE (18:00)
[2019-09-13 20:38] LABS: Glucose,Whole Blood 143 mg/dL (75-99)
[2019-09-13] MEDS: ATORVASTATIN 10 MG TAB PO SCH (21:26)
[2019-09-14 07:32] LABS: Glucose,Whole Blood 144 mg/dL (75-99)
[2019-09-14] MEDS: BUDESONIDE 0.5 MG/2 ML NEBU INHALATION SCH (07:35)
[2019-09-14] MEDS: IPRATROPIUM-ALBUTEROL 3 ML NEB INHALATION SCH ×2 (07:35→11:34)
[2019-09-14] MEDS: LORazepam 0.5 MG TAB PO SCH (08:00)
[2019-09-14] MEDS: PANTOPRAZOLE 40 MG TABLET PO SCH (08:00)
[2019-09-14] MEDS: ALLOPURINOL 100 MG TAB PO SCH (08:00)
[2019-09-14] MEDS: METOPROLOL TARTRATE 50 MG TAB PO SCH (08:00)
[2019-09-14] MEDS: FUROSEMIDE 40 MG TAB PO SCH (08:00)
[2019-09-14] MEDS: DOCUSATE 100 MG CAP PO SCH (08:00)
[2019-09-14] MEDS: LISINOPRIL 2.5 MG TAB PO SCH (08:00)
[2019-09-14] MEDS: INSULIN ASPART (NovoLOG) 100 UNIT/ML VIAL SQ SCH ×2 (08:01→11:57)
[2019-09-14] MEDS: SPIRONOLACTONE 25 MG TAB PO SCH (08:01)
[2019-09-14] MEDS: methylPREDNISolone SOD SUCCI 40 MG/ML 1 ML VIAL IV SCH (08:01)
[2019-09-14] MEDS: CALCIUM CARBONATE LIQUID 500 MG/5 ML CUP PO SCH ×2 (08:02→11:57)
[2019-09-14 08:12] LABS: INR 2.8 (<1.2); Prothrombin Time 26.8 sec (9.0-12.0)
[2019-09-14 11:35] LABS: Glucose,Whole Blood 179 mg/dL (75-99)
[2019-09-14] MEDS ORDERED: IPRATROPIUM-ALBUTEROL 3 ML NEB INHALATION PRN (12:18)
[2019-09-14] MEDS ORDERED: ALBUTEROL NEBULIZED 2.5 MG/3 ML INHALATION PRN (12:18)
--- NOTE | 2019-09-14 12:22 | P.PN ---
Subjective This is a pleasant 84-year-old female past medical history significant for chronic persistent atrial fibrillation on fpc anti-coagulation with coumadin, chronic systolic heart failure, valvular heart disease, COPD, hypertension, dyslipidemia and pulmonary hypertension. She follows in the office with Dr. Rendon. She is seen and examined sitting up in bed eating breakfast. She continues to feel short of breath with no real improvement. She denies chest pain, dizziness or palpitations. She continues to wheeze significantly despite recent updraft treatment. Blood pressure 135/98 heart rate 96 afebrile maintaining oxygen saturation on nasal cannula. Laboratory data reviewed, INR 2.8. GENERAL: Well-appearing, well-nourished and in no acute distress. NECK: Supple with bilateral JVD, no thyromegaly. LUNGS: Scattered expiratory wheezes throughout, no rhonchi or rales. Respiration equal and unlabored. HEART: Irregular rate and rhythm with systolic ejection murmur at the left sternal border, no rubs or gallops. S1 and S2 heard. EXTREMITIES: Normal range of motion, no lower extremity edema. No clubbing or cyanosis. Peripheral pulses intact. ASSESSMENT Acute on chronic systolic congestive heart failure, EF 35-40%. Non-ischemic cardiomyopathy Chronic persistent atrial fibrillation on fpc anti-coagulation with c oumadin Supra-therapeutic INR Valvular heart disease, severe MR and TR Pulmonary hypertension, RVSP 63 mmHg COPD Hypertension Dyslipidemia PLAN Continue current COPD management per pulmonary care team. We will continue to follow as needed, please follow up with Dr. Rendon in 2- weeks. Nurse Practitioner note has been reviewed, I agree with a documented findings and plan of care. Patient was seen and examined. Objective - Vital Signs Vital signs: Vital Signs Temp 97.6 F 09/14/19 01:47 Pulse 96 09/14/19 07:52 Resp 17 09/14/19 04:46 BP 129/87 09/14/19 01:47 Pulse Ox 98 09/14/19 01:47 Intake & Output 09/13/19 09/14/19 09/14/19 18:59 06:59 18:59 Output Total 150 Balance -150 Weight 70.5 kg Output: Urine 150 Other: # Bowel Movements 1 - Labs CBC & Chem 7: 09/09/19 21:00 09/13/19 07:17 Labs: Abnormal Lab Results - Last 24 Hours (Table) 09/13/19 09/13/19 09/13/19 Range/Units 07:17 07:17 11:42 PT 76.1 H (9.0-12.0) sec INR 7.4 H* (<1.2) Chloride 93 L (98-107) mmol/L Carbon Dioxide 40 H (22-30) mmol/L BUN 37 H (7-17) mg/dL Glucose 129 H (74-99) mg/dL POC Glucose (mg/dL) 210 H (75-99) mg/dL 09/13/19 09/13/19 09/14/19 Range/Units 16:53 20:37 07:08 PT (9.0-12.0) sec INR (<1.2) Chloride (98-107) mmol/L Carbon Dioxide (22-30) mmol/L BUN (7-17) mg/dL Glucose (74-99) mg/dL POC Glucose (mg/dL) 111 H 143 H 144 H (75-99) mg/dL
--- NOTE | 2019-09-14 12:34 | P.PN ---
Subjective Progress Note Date: 09/14/19 Principal diagnosis: acute on chronic shortness of breath, multifactorial, related to acute exacerbation of COPD and chronic CHF This is an 84-year-old female patient who came in yesterday to the emergency department with worsening shortness of breath and generalized weakness. The patient was unable to breathe and walk properly and she was decompensating and for that reason she came into the hospital. She was also having increased cough and chest tightness and wheezing and she was also having increased lower extremity edema. She is known to me. I've seen her during a previous hospitalization back in May 2019. Note that at that time had echocardiac Brennan was repeated and there was new onset segmental wall motion abnormality and further drop in the left anterior ejection fraction down to 30% and there was obvious worsening of the pulmonary artery pressures. The patient was seen by cardiology. Her last catheterization that was done in 2014 showed normal coronaries. 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 Note that she also has atrial fibrillation which is chronic. Her INR was therapeutic at time of admission at 2.0. I noted some increased lower extremity edema. I noted that her proBNP level was above 4000. I also noted that her CPK was 44 with a troponin of 0.018. Her EKG was consistent with chronic atrial fibrillation with a controlled rate of 86. No acute abnormalities were noted. There was an incomplete right bundle branch block. For now, the patient will be treated for a combination of COPD and CHF exacerbation. She is already on IV Lasix patient be also started on IV Solu Medrol in addition to bronchodilators around the clock. PT/INR is therapeutic and the and correlation with warfarin will be continued. Chest x-ray showing thyromegaly with mild pulmonary vascular congestion. On 09/11/2019 patient seen in follow-up on general medical floor. She states she is still short of breath, but no acute distress, she is on 3 L of oxygen and the pulse ox of 96%. She remains on IV diuretics, she is in -2.5 L over last 24 hours, she still has 1+ pitting edema in her lower extremities, in her lung sounds are still congested and wheezy.VQ scan showed low probability for pulmonary embolism, patient remains on IV steroids, breathing treatments, Pulmicort, and Perforomist. patient continues on Coumadin chronic A. fib and her INR today is 1.9 On 09/12/2019 patient seen in follow-up on general medical floor. She states she is not feeling good today, she is sleepy, apparently patient did not sleep last night related to indigestion. But no worsening breathing, she is currently on 3 L of oxygen with a pulse ox of 97%, no fever or chills, breathing is nonlabored. She is complaining of difficulty swallowing, no thrush noted in the oropharyngeal cavity. Today's chest x-ray has been reviewed showing COPD with cardiomegaly and suspected chronic interstitial lung disease, with tiny bilateral effusions. Patient continues on oral Lasix 80 mg twice daily, she is a -2.5 L over the last 24 hours. Today's INR is 4.7, sodium is 140, potassium is 3.0, chloride is 94, CO2 is 35, B1 is 32, creatinine 0.84 On 09/13/2019 patient seen in follow-up on general medical floor. She is feeling better today, although still has shortness of breath with exertion, she is alert and oriented 3, lung sounds have some bibasilar crackles. Edema has improved, patient remains on diuretics, she is in -1 L over last 24 hours. Her weight is trending down. Today's labs have been reviewed showing INR of 7.4, and patient received 1 mg of oral vitamin K. Coumadin is on hold. Current dose of Lasix is 80 mg orally twice a day. Today's labs have been reviewed showing CO2 of 40, BUN of 37 and creatinine of 0.98. On 09/14/2019 patient seen in follow-up on general medical floor, she continues to be weak, and tired, she has shortness of breath with exertion, but no acute distress resting in bed, currently on 2 L of oxygen pulse ox is 99%, she's been afebrile, hemodynamically she has been stable. She has been switched to oral diuretics 40 mg Lasix twice daily, continues to diurese, she is in negative 150 ML fluid balance over the last 24 hours, no fever or chills. Today's INR is down to 2.8. Objective - Vital Signs Vital signs: Vital Signs Temp 97.5 F L 09/14/19 07:05 Pulse 92 09/14/19 11:42 Resp 16 09/14/19 07:05 BP 135/98 09/14/19 07:05 Pulse Ox 99 09/14/19 07:05 Intake & Output 09/13/19 09/14/19 09/14/19 18:59 06:59 18:59 Output Total 150 Balance -150 Weight 70.5 kg Output: Urine 150 Other: # Bowel Movements 1 - Exam GENERAL EXAM: Alert, very pleasant, 84-year-old white female on 2 L of oxygen with a pulse ox of 99%, comfortable in no apparent distress. HEAD: Normocephalic/atraumatic. EYES: Normal reaction of pupils, equal size. Conjunctiva pink, sclera white. NOSE: Clear with pink turbinates. THROAT: No erythema or exudates. NECK: No masses, no JVD, no thyroid enlargement, no adenopathy. CHEST: No chest wall deformity. Symmetrical expansion. LUNGS: Equal air entry with no crackles, wheeze, rhonchi or dullness. CVS: Irregular rate and rhythm, normal S1 and S2, no gallops, no murmurs, no rubs ABDOMEN: Soft, nontender. No hepatosplenomegaly, normal bowel sounds, no guarding or rigidity. EXTREMITIES: No clubbing, +1 edema, no cyanosis, 2+ pulses and upper and lower extremities. MUSCULOSKELETAL: Muscle strength and tone normal. SPINE: No scoliosis or deformity SKIN: No rashes CENTRAL NERVOUS SYSTEM: Alert and oriented -3. No focal deficits, tone is normal in all 4 extremities. PSYCHIATRIC: Alert and oriented -3. Appropriate affect. Intact judgment and insight. - Labs CBC & Chem 7: 09/09/19 21:00 09/13/19 07:17 Labs: Abnormal Lab Results - Last 24 Hours (Table) 09/13/19 09/13/19 09/14/19 Range/Units 16:53 20:37 07:08 PT (9.0-12.0) sec INR (<1.2) POC Glucose (mg/dL) 111 H 143 H 144 H (75-99) mg/dL 09/14/19 09/14/19 Range/Units 07:09 11:32 PT 26.8 H (9.0-12.0) sec INR 2.8 H (<1.2) POC Glucose (mg/dL) 179 H (75-99) mg/dL Assessment and Plan Plan: 1 acute on chronic shortness of breath. The patient's dyspnea is essentially multifactorial. She is in a combination of COPD and CHF exacerbation. Her COPD is in mild severity, nevertheless, she is having increased dyspnea chest tightness and wheezing consistent with COPD exacerbation. At the same time, this patient has developed worsening in CHF with segmental wall motion abnormalities and mitral regurgitation secondary pulmonary hypertension which is severe and this was noted on the most recent echocardiogram that was done in May 2019. She also has chronic atrial fibrillation. Cardiac catheterization from 2015 has been essentially within normal limits with normal coronaries. Underlying CAD cannot be ruled out. Chest x-ray showing cardiomegaly and pulmonary vessel congestion and the patient is also having an elevated BNP level with a negative cardiac enzyme. As such, shortness of breath is chronic with acute decompensation due to the above-mentioned factors. 2 chronic atrial fibrillation, rate controlled in the PT/INR is supratherapeutic 3 chronic valvular heart disease with significant MR and severe pulmonary hypertension, ejection fraction is in order of 35% and the patient has segmental wall motion abnormalities and moderate to severe MR with severe pulmonary hypertension with a PA pressure of 63. 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 10 generalized weakness 11 dysphagia Plan: Continue current medical treatment, continue with oral diuretics, patient has been transitioned to oral steroids, continue breathing treatments, increase acti vity as tolerated, will likely need physical therapy evaluation, with the patient may need rehab after discharge as she is extremely weak. We'll defer to PCP for rehab recommendation. Stable for discharge from pulmonary perspective. I performed a history & physical examination of the patient and discussed their management with my nurse practitioner, Billie Amin. I reviewed the nurse practitioner's note and agree with the documented findings and plan of care. Lung sounds are positive for diffuse wheezes throughout the lung macdonald. The findings and the impression was discussed with the patient. I attest to the documentation by the nurse practitioner. Time with Patient: Less than 30
--- NOTE | 2019-09-14 13:17 | P.DS ---
Providers Date of admission: 09/09/19 22:01 Expected date of discharge: 09/14/19 Attending physician: Henrique Barber Consults: 09/09/19 22:01 Consult Physician Routine Consulting Provider: Emerita Ribera Consult Reason/Comments: chf Do you want consulting provider notified?: Yes Consult Physician Routine Consulting Provider: Valerie Pedro Consult Reason/Comments: known Do you want consulting provider notified?: Yes Primary care physician: Henrique Barber Physical dictation on discharge summary date of service 09/14/2019 Final diagnoses: #1 acute congestive heart failure on the top of chronic. #2 cardiomyopathy with impaired ejection fraction with the previous cardiac cath on 2014 coronary artery was normal. #3 acute exacerbation of COPD on the top of chronic with the underlying hypoxemic. #4 interstitial lung disease with fibrosis bilateral. #5 swallow study indicating same penetration and she is on [place] by the speech pathology and dietitian. #6 hyper uricemia. #7 hyper lipidemia. #8 patient able to ambulate and able to tolerate tachycardia as an initially started by Dr. Ribera germination testing manager at his office after she had the Holter monitor 24 hour. Patient will follow with Dr. Orozco and and continued the diltiazem as he ordered it and will follow with him next week. #9 pulmonary hypertension and valvular heart disease. And impaired ejection fraction. Associated with acute on the top of chronic systolic congestive heart failure. #10 resistant atrial fibrillation chronic on anticoagulation. #11 minimal elevation of INR and pro time which is controlled well with a stable INR today on discharge 2.8 with the average between 2-3 and the Coumadin adjusted for the. Presentation to the emergency room: Severe shortness of breath and inability to walk with the generalized weakness. Hospital course: Patient seen evaluated by Dr. Villafuerte and Dr. Horner, subsequently Dr. Servin pulmonary and critical The adjusted her medication and started with increased Lasix IV followed by degrees it by mouth and restarted again the cardiac rhythm. Patient diuresed very well the lower extremities edema improved and the chest x- ray indicating pulmonary fibrosis and interstitial lung disease. She had the rehabilitation in the hospital and she is able to ambulate. Patient requested to go home not to a snf as the thoughts the specialist. Subsequently clearance from pulmonary and cardiology was obtained. Patient general condition stable she still has COPD continued and she is on oxygen to continue and we had increased INR adjusted with the treatment and currently she is on Coumadin 1 mg every afternoon daily. And she will be monitored the PT and INR next week by the visiting nurse. Assessment: Patient stable general condition cleared by the pulmonary and cardiology for discharge today. Plan: To be seen by pulmonary and critical care as well as cardiology as outpatient. Primary care we'll see her next week Dr. Li. And her med rec has been reviewed and adjusted to the home medication because some of these medicine not available in the hospital. Patient Condition at Discharge: Fair Plan - Discharge Summary Discharge Rx Participant: Yes New Discharge Prescriptions: New Spironolactone [Aldactone] 25 mg PO DAILY@0800 #30 tab Aspirin 81 mg PO DAILY@1700 chew LORazepam [Ativan] 0.5 mg PO BID tab Docusate [Colace] 200 mg PO BID@0800,1700 cap Furosemide [Lasix] 40 mg PO BID@0800,1700 tab Atorvastatin [Lipitor] 10 mg PO HS@2100 tab HYDROcodone/APAP 5-325MG [[place]gra[place] 5-325] 1 each PO Q6HR PRN tab PRN Reason: Pain Pantoprazole [Protonix] 40 mg PO AC-BRKFST tablet. Acetaminophen Tab [Tylenol] 650 mg PO Q4H PRN tab PRN Reason: PAIN/FEVER Lisinopril [Zestril] 2.5 mg PO DAILY@0800 #30 tab Continue Allopurinol [Zyloprim] 100 mg PO DAILY@0800 Ipratropium-Albuterol Nebulize [Duoneb 0.5 mg-3 mg/3 ml Soln] 3 ml INHALATION RT-QID PRN PRN Reason: Shortness Of Breath Metoprolol Tartrate [Lopressor] 50 mg PO BID tab Budesonide [Pulmicort] 0.5 mg INHALATION RT-BID ml Diltiazem HCl 60 mg PO DAILY Ezetimibe/Simvastatin [Vytorin 10-10 mg] 1 tab PO DAILY Gabapentin [Neurontin] 100 mg PO DAILY Warfarin Sodium [Coumadin] 1 mg PO TUTHSA Albuterol Sulfate [Accuneb] 3 ml INHALATION RT-TID PRN PRN Reason: Shortness Of Breath Discontinued Furosemide [Lasix] 80 mg PO BID@0800,1700 Nitroglycerin Sl Tabs [Nitrostat] 0.4 mg SUBLINGUAL Q5M PRN tab PRN Reason: Chest Pain Warfarin Sodium [Jantoven] 2 mg PO SUMOWEFR Discharge Medication List Allopurinol [Zyloprim] 100 mg PO DAILY@0800 05/27/19 [History] Ipratropium-Albuterol Nebulize [Duoneb 0.5 mg-3 mg/3 ml Soln] 3 ml INHALATION RT-QID PRN 05/27/19 [History] Metoprolol Tartrate [Lopressor] 50 mg PO BID tab 06/01/19 [Rx] Budesonide [Pulmicort] 0.5 mg INHALATION RT-BID ml 06/02/19 [Rx] Diltiazem HCl 60 mg PO DAILY 09/10/19 [History] Ezetimibe/Simvastatin [Vytorin 10-10 mg] 1 tab PO DAILY 09/10/19 [History] Gabapentin [Neurontin] 100 mg PO DAILY 09/10/19 [History] Warfarin Sodium [Coumadin] 1 mg PO TUTHSA 09/10/19 [History] Albuterol Sulfate [Accuneb] 3 ml INHALATION RT-TID PRN 09/11/19 [History] Acetaminophen Tab [Tylenol] 650 mg PO Q4H PRN tab 09/14/19 [Rx] Aspirin 81 mg PO DAILY@1700 chew 09/14/19 [Rx] Atorvastatin [Lipitor] 10 mg PO HS@2100 tab 09/14/19 [Rx] Docusate [Colace] 200 mg PO BID@0800,1700 cap 09/14/19 [Rx] Furosemide [Lasix] 40 mg PO BID@0800,1700 tab 09/14/19 [Rx] HYDROcodone/APAP 5-325MG [Ingraham 5-325] 1 each PO Q6HR PRN tab 09/14/19 [Rx] LORazepam [Ativan] 0.5 mg PO BID tab 09/14/19 [Rx] Lisinopril [Zestril] 2.5 mg PO DAILY@0800 #30 tab 09/14/19 [Rx] Pantoprazole [Protonix] 40 mg PO AC-BRKFST tablet. 09/14/19 [Rx] Spironolactone [Aldactone] 25 mg PO DAILY@0800 #30 tab 09/14/19 [Rx] Follow up Appointment(s)/Referral(s): Berna Servin MD [STAFF PHYSICIAN] - 1 Week Emerita Ribera MD [STAFF PHYSICIAN] - 2 Weeks [facility] Visiting Nurse, [NON-STAFF] - Henrique Barber MD [Primary Care Provider] - 09/19/19 10:40 am Activity/Diet/Wound Care/Special Instructions: Home visiting nurse was rehabilitation. Diet is thick at by the speech pathology as well as dietitian. Discharge Disposition: HOME WITH HOME HEALTH SERVICES
[2019-09-14 15:38] VITALS: BP 120/84; PULSE 103; RESP 18; TEMP 98
[2019-09-14] MEDS ORDERED: WARFARIN 1 MG TAB PO SCH (18:00)
[2019-09-15] MEDS ORDERED: PANTOPRAZOLE 40 MG TABLET PO SCH (07:30)
[2019-09-15] MEDS ORDERED: SPIRONOLACTONE 25 MG TAB PO SCH (08:00)
[2019-09-15] MEDS ORDERED: DILTIAZEM ORAL 60 MG TAB PO SCH (09:00)
[2019-09-15] MEDS ORDERED: predniSONE 10 MG TAB PO SCH (09:00)
[2019-09-15] MEDS ORDERED: ATORVASTATIN 10 MG TAB PO SCH (09:00)
[2019-09-15] MEDS ORDERED: EZETIMIBE 10 MG TAB PO SCH (09:00)
--- NOTE | 2019-09-15 12:15 | CDI ---
Documentation Clarification Form Date: 09/15/19 From: Salome Barahona CCS Phone: If you have a question about this query, please contact Esperanza Richmond, [employer] at [phone] between 8am and 5pm. Admit Date: 09/09/19 Discharge Date:09/14/19 Patient Name: Sandie Virk Visit Number: [id number] ATTENTION: The Clinical Documentation Specialists (CDI) and [facility] Coding Staff appreciate your assistance in clarifying documentation. Please respond to the clarification below the line at the bottom and electronically sign. The CDI & [facility] Coding staff will review the response and follow-up if needed. Please note: Queries are made part of the Legal Health Record. If you have any questions, please contact the author of this message via ITS. Dear Dr. Barber, Hypoxemia with acute on chronic shortness of breath is related to acute exacerbation of COPD and CHF is documented in the Consult, PNs. History/Risk Factors: A/C CHF, HTN, COPD w/ Exac, AFIB, Valve disease, PHTN Clinical Indicators: Acute on chronic shortness of breathe with hypoxemia Vitals: RR 18- 22- O2 Sat 91, 93 Treatment: Oxygen nasal cannula 2 lpm, hand held nebulizer Consults: Mayela In your professional opinion, can you please clarify acute on chronic shortness of breath with hypoxemia? Chronic respiratory failure Acute on chronic respiratory failure Dyspnea Hypoxemia Other, please specify Unable to determine On admission patient presented with shortness of breath Acute exacerbation of COPD on the top of chronic with the underlying chronic respiratory failure exacerbated with the associated congestive heart failure systolic. MTDD
== END 2019-09-14 15:16 | disposition home health service (06) | DRG 291 ==
LOC: EC 20:44 → 4SSUR 22:01
PROVIDERS: ADMIT Internal Medicine; ATTEND Internal Medicine
DX: I13.0 Hypertensive heart and chronic kidney disease with heart failure and stage 1 through stage 4 chronic kidney disease, or unspecified chronic kidney disease (principal); I50.23 Acute on chronic systolic (congestive) heart failure; J96.11 Chronic respiratory failure with hypoxia; D68.59 Other primary thrombophilia; E87.3 Alkalosis; J44.1 Chronic obstructive pulmonary disease with (acute) exacerbation; I48.19 Other persistent atrial fibrillation; Z20.828 Contact with and (suspected) exposure to other viral communicable diseases; I27.29 Other secondary pulmonary hypertension; N18.3 Chronic kidney disease, stage 3 (moderate); J84.10 Pulmonary fibrosis, unspecified; I42.8 Other cardiomyopathies; E78.5 Hyperlipidemia, unspecified; K57.90 Diverticulosis of intestine, part unspecified, without perforation or abscess without bleeding; I08.1 Rheumatic disorders of both mitral and tricuspid valves; R32 Unspecified urinary incontinence; I45.10 Unspecified right bundle-branch block; R53.1 Weakness; K21.9 Gastro-esophageal reflux disease without esophagitis; R13.10 Dysphagia, unspecified; E87.6 Hypokalemia; R73.9 Hyperglycemia, unspecified; E79.0 Hyperuricemia without signs of inflammatory arthritis and tophaceous disease; R00.0 Tachycardia, unspecified; R26.2 Difficulty in walking, not elsewhere classified; T38.0X5A Adverse effect of glucocorticoids and synthetic analogues, initial encounter; Z71.3 Dietary counseling and surveillance; Z79.899 Other long term (current) drug therapy; Z79.51 Long term (current) use of inhaled steroids; Z79.82 Long term (current) use of aspirin; Z79.01 Long term (current) use of anticoagulants; Z86.73 Personal history of transient ischemic attack (TIA), and cerebral infarction without residual deficits; Z87.01 Personal history of pneumonia (recurrent); Z90.710 Acquired absence of both cervix and uterus; Z90.49 Acquired absence of other specified parts of digestive tract; Z98.890 Other specified postprocedural states; Z98.42 Cataract extraction status, left eye; Z98.41 Cataract extraction status, right eye; Z96.1 Presence of intraocular lens; Z90.81 Acquired absence of spleen; Z82.49 Family history of ischemic heart disease and other diseases of the circulatory system; Z80.9 Family history of malignant neoplasm, unspecified
CPT/HCPCS: 36415; 71046; 74230; 78582; 80048; 80053; 81001; 82550; 83605; 83735; 83880; 84100; 84443; 84484; 85025; 85379; 85610; 85730; 93005; 94640; 94760; 96374; 99285

== ENCOUNTER → 2019-10-27 | Outpatient (CLI) | payer MEDICARE ==
[2019-10-27 16:55] LABS: African American GFR (CKD) 53.8 (60.0-200.0); Anion Gap 10.3 mmol/L (4.00-12.00); BUN/Creat Ratio 24.55 Ratio (12.00-20.00); Calcium 9.6 mg/dL (8.7-10.3); Carbon Dioxide 25.7 mmol/L (21.6-31.8); Non-African American GFR(CKD) 46.4 (60.0-200.0); Potassium 5.1 mmol/L (3.5-5.5)
== END | disposition home or self-care (01) ==
LOC: LABWHC1 09:44
PROVIDERS: ATTEND Nurse Practitioner Adult Health
DX: N18.9 Chronic kidney disease, unspecified (principal)
CPT/HCPCS: 36415; 80048

== ENCOUNTER → 2019-12-14 | Outpatient (CLI) | payer MEDICARE ==
--- NOTE | 2019-12-14 12:20 | US ---
EXAMINATION TYPE: US abdomen complete DATE OF EXAM: 12/14/2019 COMPARISON: US, CT CLINICAL HISTORY: Right upper and lower quadrant pain x 1 month, R10.11, R10.32. HX of AAA, right barbie al cyst, HTN, AFIB, patient stated had splenic blood clot per her physician. EXAM MEASUREMENTS: Liver Length: 12.6 cm Gallbladder Wall: 0.2 cm CBD: 1.2 cm Spleen: 8.8 cm Right Kidney: 9.8 x 3.9 x 3.5 cm Left Kidney: 9.4 x 4.9 x 4.1 cm Pancreas: wnl Liver: periportal wall brightness is noted Gallbladder: wnl Evidence for sonographic Acevedo's sign: no CBD: dilated but decreases in size towards pancreas and may be age appropriate for patient's age in 8th decade. Spleen: major portion of organ noted superiorly Right Kidney:couple of renal cysts noted with larger inferolateral cortex = 1.1 x 1.4 x 0.8cm. Left Kidney: mid lateral cortical simple cyst imaged = 1.2 x 1.2 x 1.1cm Upper IVC: wnl Abd Aorta: enlarged aorta noted distally with size = 6.1 x 5.9 x 4.8cm. Intimal wall changes noted t hroughout and significant plaque/thrombus in distal aorta. IMPRESSION: 1. Abdominal aortic aneurysm. 2. Renal cystic change.
== END | disposition home or self-care (01) ==
LOC: RADUSWWP 10:35
PROVIDERS: ATTEND Internal Medicine
DX: I71.4 Abdominal aortic aneurysm, without rupture (principal); N28.1 Cyst of kidney, acquired
CPT/HCPCS: 76700

== ENCOUNTER → 2020-02-02 | Outpatient (CLI) | payer MEDICARE ==
--- NOTE | 2020-02-02 17:15 | CT ---
EXAMINATION TYPE: CT abdomen pelvis w con DATE OF EXAM: 02/02/2020 COMPARISON: Abdominal ultrasound 12/14/2019 CTA chest 04/25/2018. HISTORY: Diverticulitis, Generalized abdominal pain CT DLP: 1029 mGycm Automated exposure control for dose reduction was used. TECHNIQUE: Helical acquisition of images was performed from the lung bases through the pelvis. CONTRAST: Performed with Oral Contrast and with IV Contrast, patient injected with 100 ml mL of Isovue 300. FINDINGS: Evaluation of the visceral organs is somewhat limited due to arterial phase of contrast. LUNG BASES: No pericardial or pleural effusion. Cardiomegaly. Calcified coronary artery disease. Tiny aneurysmal outpouching of the descending thoracic aorta on the left anteromedially (3:5), and on the left just above the diaphragmatic pleura (3:19), both of which are [facility] LIVER: Normal. BILIARY SYSTEM: Normal. PANCREAS: Atrophic SPLEEN: Normal. ADRENALS: There is likely a adrenal adenoma on the left. Right adrenal gland normal. KIDNEYS: No hydronephrosis or hydroureter. Bilateral renal cysts and too small to characterize hypode nse lesions. BOWEL: No obstruction. Colonic diverticulosis. No acute diverticulitis. Small hiatal hernia. PERITONEUM: No pneumoperitoneum. No free fluid. LYMPH NODES: No lymphadenopathy. PELVIS: Normal urinary bladder. Status post hysterectomy. VASCULATURE: There is abdominal aortic aneurysm with aortobiiliac stent grafting. The infrarenal abd ominal aortic aneurysm sac measures up to 4.9 x 5.2 cm AP and transverse (3:41). No definite contrast opacification of the aneurysm sac. MUSCULOSKELETAL: Degenerative changes of the spine. IMPRESSION: 1. Colonic diverticulosis. No acute diverticulitis. 2. Abdominal aortic aneurysm with aortobiiliac stent grafting. The nonopacified infrarenal abdominal aortic aneurysm sac measures up to 4.9 x 5.2 cm. 3. Additional nonacute findings as above.
== END | disposition home or self-care (01) ==
LOC: RADCTMAIN 09:30
PROVIDERS: ATTEND Internal Medicine
DX: K57.30 Diverticulosis of large intestine without perforation or abscess without bleeding (principal); I71.4 Abdominal aortic aneurysm, without rupture; R10.9 Unspecified abdominal pain; Z90.710 Acquired absence of both cervix and uterus
CPT/HCPCS: 82565; 84520; 74177; 36415; Q9967

== ENCOUNTER → 2020-03-26 | Outpatient (CLI) | payer MEDICARE ==
--- NOTE | 2020-03-26 16:58 | CT ---
EXAMINATION TYPE: CT brain wo con DATE OF EXAM: 03/26/2020 COMPARISON: 02/13/2014 HISTORY: dizziness, headache, loss of balance, memory changes CT DLP: 1047.1 mGycm Automated exposure control for dose reduction was used. There is cerebral cortical atrophy. There is no mass effect nor midline shift. There is no sign of in tracranial hemorrhage. The calvarium is intact there is some mild hypodensity in the periventricular white matter and more noticeable in the left internal capsule. IMPRESSION: Cerebral atrophy. Chronic small vessel ischemia that shows significant progression compared to old ex am. Small old lacunar infarcts left internal capsule.
== END | disposition home or self-care (01) ==
LOC: RADCTMAIN 16:13
PROVIDERS: ATTEND Internal Medicine
DX: G31.1 Senile degeneration of brain, not elsewhere classified (principal); I67.82 Cerebral ischemia; I63.81 Other cerebral infarction due to occlusion or stenosis of small artery
CPT/HCPCS: 70450

== ENCOUNTER 2020-04-03 13:50 | Emergency (ER) | payer MEDICARE ==
[2020-04-03 14:13] VITALS: RESP 16
--- NOTE | 2020-04-03 14:47 | ED ---
Fall HPI - General Chief Complaint: Fall Stated Complaint: L KNEE PAIN FROM FALL Time Seen by Provider: 04/03/20 14:01 Source: patient, EMS Mode of arrival: EMS - History of Present Illness Initial Comments: Patient is an 84-year-old female presenting to the emergency department after falling at her house at approximately 6 AM this morning. Patient states she was trying to sit in a chair when she missed it and fell mostly on her left side. Patient states she believes she bumped the back of her head on either a table or her oxygen tank and twisted her left knee. She does take Coumadin. Patient states she needed assistance from EMS this morning to help her to her feet but she did not want to go to the ER at that time. Patient states she then called EMS just prior to arrival secondary to increasing pain in her left knee. She denies having a headache, no blurry vision, no chest pain. She states she has a cough but this is normal for her. She denies any surgeries of her knees. She denies any hip pain. She states she does have a small bruise on her right knee but states this is not bothering her and she is able to ambulate with a walker without pain in her right knee. She has no further complaints at this time. She did receive Tylenol from the EMS just prior to arrival. She states she does not want anything else for pain at this time. - Related Data Home Medications Medication Instructions Recorded Confirmed Ipratropium-Albuterol Nebulize 3 ml INHALATION RT-QID PRN 05/27/19 09/10/19 [Duoneb 0.5 mg-3 mg/3 ml Soln] allopurinoL [Zyloprim] 100 mg PO DAILY@0800 05/27/19 09/10/19 Ezetimibe/Simvastatin [Vytorin 1 tab PO DAILY 09/10/19 09/10/19 10-10 mg] Gabapentin [Neurontin] 100 mg PO DAILY 09/10/19 09/10/19 Warfarin Sodium [Coumadin] 1 mg PO TUTHSA 09/10/19 09/11/19 dilTIAZem HCL [Diltiazem HCl] 60 mg PO DAILY 09/10/19 09/10/19 Albuterol Sulfate [Accuneb] 3 ml INHALATION RT-TID PRN 09/11/19 09/11/19 Previous Rx's Medication Instructions Recorded Metoprolol Tartrate [Lopressor] 50 mg PO BID tab 06/01/19 Budesonide [Pulmicort] 0.5 mg INHALATION RT-BID ml 06/02/19 Acetaminophen Tab [Tylenol] 650 mg PO Q4H PRN tab 09/14/19 Aspirin 81 mg PO DAILY@1700 chew 09/14/19 Atorvastatin [Lipitor] 10 mg PO HS@2100 tab 09/14/19 Docusate [Colace] 200 mg PO BID@0800,1700 cap 09/14/19 Furosemide [Lasix] 40 mg PO BID@0800,1700 tab 09/14/19 HYDROcodone/APAP 5-325MG [[place] 1 each PO Q6HR PRN tab 09/14/19 5-325] LORazepam [Ativan] 0.5 mg PO BID tab 09/14/19 Pantoprazole [Protonix] 40 mg PO AC-BRKFST tablet. 09/14/19 Spironolactone [Aldactone] 25 mg PO DAILY@0800 #30 tab 09/14/19 lisinopriL [Zestril] 2.5 mg PO DAILY@0800 #30 tab 09/14/19 Allergies Allergy/AdvReac Type Severity Reaction Status Date / Time No Known Allergies Allergy Verified 09/10/19 13:11 Review of Systems ROS Statement: Those systems with pertinent positive or pertinent negative responses have been documented in the HPI. ROS Other: All systems not noted in ROS Statement are negative. Past Medical History Past Medical History: Atrial Fibrillation, Chest Pain / Angina, Heart Failure, COPD, CVA/TIA, Hyperlipidemia, Hypertension, Pneumonia, Renal Disease Additional Past Medical History / Comment(s): COPD, severe MR, severe TR, moderate to severe pulmonary hypertension, chronic atrial fibrillation, hypertension, hyperlipidemia, history of hypercoagulability and and the patient has been maintained on anticoagulation with warfarin, abdominal hernia, diverticulosis and previous history of diverticulitis, history of urinary incontinence, hypertension, history of CVA History of Any Multi-Drug Resistant Organisms: None Reported Past Surgical History: Adenoidectomy, Appendectomy, Breast Surgery, Heart Catheterization, Hysterectomy, Tonsillectomy Additional Past Surgical History / Comment(s): CATARACTS-LENS IMPLANTS, CYSTOCELE/RECTOCELE AND HOLE IN BOWEL REPAIRED, LT HAND THUMB SX, BREAST BIOPSY- NEG, 4 cm AAA, L little toe bone removed, hammer toe surgery Past Anesthesia/Blood Transfusion Reactions: No Reported Reaction Past Psychological History: No Psychological Hx Reported Past Alcohol Use History: None Reported Past Drug Use History: None Reported - Past Family History Father Family Medical History: Cancer, Myocardial Infarction (NM) Additional Family Medical History / Comment(s): ANEURYSMS, BONE CA. AGE 75 FROM ANEURYSM IN HEAD Mother Family Medical History: Congestive Heart Failure (CHF) Additional Family Medical History / Comment(s): AT AGE 84 General Exam - General Exam Comments Initial Comments: GENERAL: Patient is well-developed and well-nourished. Patient is nontoxic and in no acute distress. HEAD: Atraumatic, normocephalic. EYES: Pupils equal round and reactive to light, extraocular movements intact, sclera anicteric, conjunctiva are normal. Eyelids were unremarkable. ENT: TMs normal, nares patent, oropharynx clear without exudates. Moist mucous membranes. NECK: Normal range of motion, supple without lymphadenopathy or JVD. LUNGS: Unlabored respirations. Breath sounds clear to auscultation bilaterally and equal. No wheezes rales or rhonchi. HEART: Regular rate and rhythm without murmurs, rubs or gallops. ABDOMEN: Soft, nontender, normoactive bowel sounds. No guarding, no rebound. No masses appreciated. : Deferred MUSCULOSKELETAL: She has pain to palpation of the anterior left knee as well as the lateral and posterior aspect. She does have limited range of motion, 0 to about 30 of active flexion. She does have some mild to moderate swelling present as well. No obvious deformity. She is neurovascular intact. She does have some contusion on the anterior aspect of her right knee however she does have full range of motion. Normal extremities with adequate strength and normal range of motion, no pitting or edema. No clubbing or cyanosis. NEUROLOGICAL: Patient is alert and oriented x 3. Motor and sensory are also intact. Cranial nerves II through XII grossly intact. Symmetrical smile. Normal speech, normal gait. PSYCH: Normal mood, normal affect. SKIN: Warm, Dry, normal turgor, no rashes or lesions noted. Limitations: no limitations Course Vital Signs 04/03/20 04/03/20 04/03/20 14:08 15:34 16:11 Temperature 97.6 F 97.7 F 97.6 F Pulse Rate 80 68 77 Respiratory 16 16 16 Rate Blood Pressure 132/81 138/76 142/77 O2 Sat by Pulse 97 96 96 Oximetry Medical Decision Making - Medical Decision Making Patient is an 84-year-old female presenting via EMS after she took a fall earlier this morning. She is complaining of mostly left knee pain, she did hit her head, no loss of consciousness. Her exam is unremarkable, no neural deficits, she does have some bruising of bilateral anterior knees. Computed tomography scan of the head and neck are negative for an acute process, x-rays left knee are also negative. I discussed with patient this is most like a contusions to both of her knees. I recommended icing. She does use a walker at home and I recommended continuing to use this. She can follow up with her regular doctor if her knee pain persists. She is in agreement this plan of ca re. She is stable for discharge. Case discussed with Dr. Castillo Disposition Clinical Impression: Fall, Contusion of left knee Disposition: HOME SELF-CARE Condition: Stable Instructions (If sedation given, give patient instructions): Knee Pain (ED) Additional Instructions: Please return to the Emergency Department if symptoms worsen or any other concerns. Recommend icing to both knees, elevation for swelling. Use your walker for ambulation assistance. Follow-up with your regular doctor. Is patient prescribed a controlled substance at d/c from ED?: No Referrals: Henrique Barber MD [Primary Care Provider] - 1-2 days
--- NOTE | 2020-04-03 15:18 | XR ---
EXAMINATION TYPE: XR knee 4V LT DATE OF EXAM: 04/03/2020 COMPARISON: None HISTORY: Pain, fall TECHNIQUE: Three-view left knee FINDINGS: Minimal medial femoral condylar spurring is present. Medial and lateral compartment joint s paces are preserved. Small to moderate joint effusion is present. Vascular calcifications present. Follow-up exams can be performed 7-10 days from acute trauma for continued pain. IMPRESSION: 1. No acute osseous abnormality. 2. Small to moderate suprapatellar joint effusion.
--- NOTE | 2020-04-03 15:21 | CT ---
EXAMINATION TYPE: CT brain leatha wo con DATE OF EXAM: 04/03/2020 COMPARISON: 03/26/2020 HISTORY: Fall with frontal injury today. CT DLP: 1318.2 mGycm, Automated exposure control for dose reduction was used. CONTRAST: Patient injected with 0 mL of Isovue 300. CT of the brain is performed utilizing 3 mm thick sections through the posterior fossa and 3 mm thick sections through the remaining calvarium. Study is performed within 24 hours of arrival to the hospital. No abnormal hyperdensity is present to suggest an acute intracranial hemorrhage. No mass lesion is evident. No acute infarcts are evident. Mild periventricular white matter hypodensity is present, likely on t he basis of chronic white matter ischemic changes. Findings are stable. Ventricles and sulci are prominent for the patient age. Paranasal sinuses and mastoid air cells within the [id number] are clear. IMPRESSIONS: 1. Atrophy with chronic appearing periventricular white matter ischemic changes, stable from comparis on CT cervical spine. COMPARISON: None CT of the cervical spine is performed in the axial plane at 2 mm thick sections. Reconstructed image s in the coronal, and sagittal plane are reviewed on the computer. No acute fractures are evident. Vertebral body alignment is normal. Disc heights are preserved. Vertebral body heights are preserved. No spinal canal stenosis is evident. No neural foraminal stenosis is evident. IMPRESSIONS: 1. Normal CT cervical spine.
[2020-04-03 16:16] VITALS: BP 142/77; PULSE 77; TEMP 97.6
== END 2020-04-03 16:15 | disposition home or self-care (01) ==
LOC: EC 13:50
DX: S80.02XA Contusion of left knee, initial encounter (principal); J44.9 Chronic obstructive pulmonary disease, unspecified; E78.5 Hyperlipidemia, unspecified; I10 Essential (primary) hypertension; I27.20 Pulmonary hypertension, unspecified; I48.20 Chronic atrial fibrillation, unspecified; Z86.73 Personal history of transient ischemic attack (TIA), and cerebral infarction without residual deficits; Z79.51 Long term (current) use of inhaled steroids; Z79.899 Other long term (current) drug therapy; Z95.5 Presence of coronary angioplasty implant and graft; Z86.2 Personal history of diseases of the blood and blood-forming organs and certain disorders involving the immune mechanism; Z98.890 Other specified postprocedural states; W18.30XA Fall on same level, unspecified, initial encounter; Y93.89 Activity, other specified; Y92.009 Unspecified place in unspecified non-institutional (private) residence as the place of occurrence of the external cause
CPT/HCPCS: 70450; 72125; 99284

== ENCOUNTER → 2020-05-08 | Outpatient (CLI) | payer MEDICARE ==
--- NOTE | 2020-05-08 14:40 | US ---
EXAMINATION TYPE: US pelvic complete DATE OF EXAM: 05/08/2020 COMPARISON: NONE CLINICAL HISTORY: R31.9 hematuria R10.31 R10.32 BilatLower Abdominal. gross hematuria after a fall 1 month ago, no hematuria now, ongoing pelvic pain, hysterectomy TECHNIQUE: TA. Transabdominal sonographic images of the pelvis Date of LMP: years ago EXAM MEASUREMENTS: Uterus: Surgically absent Endometrial Stripe: Surgically absent Right Ovary: not seen Left Ovary: not seen 1. Uterus: Surgically absent 2. Endometrium: Surgically absent 3. Right Ovary: not seen due to atrophy and bowel gas 4. Left Ovary: not seen due to atrophy and bowel gas 5. Bilateral Adnexa: wnl 6. Posterior cul-de-sac: wnl IMPRESSION: Normal post hysterectomy pelvic ultrasound.
--- NOTE | 2020-05-08 14:43 | US ---
EXAMINATION TYPE: US abdomen complete DATE OF EXAM: 05/08/2020 COMPARISON: NONE CLINICAL HISTORY: R31.9 hematuria R10.31 R10.32 BilatLower Abdominal. fall 1 month ago, pelvic pain, gross hematuria that is gone now, h/o AAA EXAM MEASUREMENTS: Liver Length: 16.3 cm Gallbladder Wall: 0.2 cm CBD: 1.0 cm Spleen: 9.1 cm Right Kidney: 9.0 x 3.4 x 3.9 cm Left Kidney: 9.4 x 4.7 x 4.4 cm bowel gas on short waisted, elderly female, difficult to image, mostly intercostal imaging. Pancreas: wnl Liver: wnl Gallbladder: wnl Evidence for sonographic Acevedo's sign: no CBD: slightly dilated for age Spleen: 5.5cm hypoechoic area seen, unable to determine if truly within spleen versus adjacent Right Kidney: wnl Left Kidney: 1.7cm exophytic cyst seen laterally Upper IVC: wnl Abd Aorta: 4.4cm thrombosed AAA distally with stenting noted. IMPRESSION: 1. Distal abdominal aorta with vascular stent within an aneurysm.
== END | disposition home or self-care (01) ==
LOC: RADUSWWP 08:48
PROVIDERS: ATTEND Internal Medicine
DX: I71.4 Abdominal aortic aneurysm, without rupture (principal); R31.9 Hematuria, unspecified; Z95.828 Presence of other vascular implants and grafts; Z90.710 Acquired absence of both cervix and uterus
CPT/HCPCS: 76700; 76856

== ENCOUNTER → 2020-07-26 | Outpatient (CLI) | payer MEDICARE ==
--- NOTE | 2020-07-26 12:16 | XR ---
EXAMINATION TYPE: XR chest 2V DATE OF EXAM: 07/26/2020 COMPARISON: 09/12/2019 HISTORY: Shortness of breath TECHNIQUE: Frontal and lateral views of the chest are obtained. FINDINGS: Scattered senescent parenchymal changes noted. Hyperinflation compatible with COPD. No evidence for infiltrate. No evidence for atelectasis. Heart size is stable. Mediastinal structures are stable and grossly unremarkable. No evidence for hilar prominence. Degenerative changes dorsal spine. IMPRESSION: 1. No evidence for acute pulmonary disease.
[2020-07-26 19:40] LABS: Basophils # (A) 0.04 X 10*3/uL (0.00-0.10); Basophils % (A) 0.4 %; Eosinophils # (A) 0.14 X 10*3/uL (0.04-0.35); Eosinophils % (A) 1.4 %; HCT 46.8 % (37.2-46.3); HGB 14.3 g/dL (12.0-15.0); Lymphocytes % (A) 27.3 %; MCH 28.8 pg (27.0-32.0); MCHC 30.6 g/dL (32.0-37.0); MCV 94.4 fL (80.0-97.0); Mean Platelet Volume 9.8 fL (9.5-12.2); Monocytes # (A) 0.97 X 10*3/uL (0.20-1.00); Monocytes % (A) 9.8 %; Neutrophils # (A) 5.96 X 10*3/uL (1.80-7.70); Neutrophils % (A) 60.3 %; Platelet Count 398 X 10*3/uL (140-440); RBC 4.96 X 10*6/uL (4.10-5.20); RDW 16.4 % (11.5-14.5); WBC 9.89 X 10*3/uL (4.50-10.00)
[2020-07-27 04:52] LABS: African American GFR (CKD) 53.4 (60.0-200.0); Anion Gap 11.8 mmol/L (4.00-12.00); BUN/Creat Ratio 29.09 Ratio (12.00-20.00); Calcium 9.9 mg/dL (8.7-10.3); Carbon Dioxide 28.2 mmol/L (21.6-31.8); Non-African American GFR(CKD) 46.1 (60.0-200.0); Potassium 4.8 mmol/L (3.5-5.5)
[2020-07-27 05:31] LABS: C Reactive Protein 6.5 mg/dL (0.0-0.8)
== END | disposition home or self-care (01) ==
LOC: LABWHC1 11:39
PROVIDERS: ATTEND Internal Medicine
DX: J44.9 Chronic obstructive pulmonary disease, unspecified (principal); R06.02 Shortness of breath; R05 Cough
CPT/HCPCS: 36415; 71046; 80048; 85025; 86140

== ENCOUNTER 2020-08-14 12:51 | Inpatient (IN) | payer MEDICARE ==
[2020-08-14 13:24] LABS: Basophils % (A) 0 %; Eosinophils # (A) 0.2 k/uL (0-0.7); Eosinophils % (A) 2 %; HCT 45.5 % (34.0-46.0); HGB 15.2 gm/dL (11.4-16.0); Lymphocytes % (A) 6 %; MCH 30.3 pg (25.0-35.0); MCHC 33.3 g/dL (31.0-37.0); Mean Platelet Volume 6.5; Monocytes # (A) 0.9 k/uL (0-1.0); Monocytes % (A) 6 %; Neutrophils # (A) 13.4 k/uL (1.3-7.7); Neutrophils % (A) 86 %; Platelet Count 346 k/uL (150-450); RBC 5.01 m/uL (3.80-5.40); RDW 15.4 % (11.5-15.5); WBC 15.6 k/uL (3.8-10.6)
[2020-08-14] MEDS ORDERED: MORPHINE SULFATE 2 MG/ML SYRINGE IVP STA (13:25)
[2020-08-14] MEDS ORDERED: ACETAMINOPHEN TAB 325 MG TAB PO STA (13:25)
[2020-08-14] MEDS ORDERED: ACETAMINOPHEN TAB 500 MG TAB PO STA (13:25)
[2020-08-14 13:33] LABS: Albumin 3.6 g/dL (3.5-5.0); Calcium 9.4 mg/dL (8.4-10.2); Potassium 4.5 mmol/L (3.5-5.1); Total Bilirubin 0.8 mg/dL (0.2-1.3); Total Protein 6.5 g/dL (6.3-8.2)
[2020-08-14 13:46] LABS: Appearance,Urine Clear (Clear); Bacteria,Urine Many /hpf; Bilirubin,Urine Negative (Negative); Blood,Urine Trace (Negative); Color,Urine Yellow; Glucose,Urine (UA) Negative (Negative); Ketones,Urine Negative (Negative); Leukocyte Esterase,Urine Small (Negative); Mucus,Urine Rare /hpf; Nitrite,Urine Positive (Negative); Protein,Urine Negative (Negative); RBC,Urine 2 /hpf (0-5); Specific Gravity,Urine 1.018 (1.001-1.035); Urobilinogen,Urine <2.0 mg/dL (<2.0); WBC,Urine 20 /hpf (0-5)
--- NOTE | 2020-08-14 13:46 | ED ---
Fever HPI - General Source: EMS Mode of arrival: EMS Limitations: no limitations <Cecilia Bruner - Last Filed: 08/14/20 13:52> <Vladimir Lyon - Last Filed: 08/14/20 14:55> - General Chief Complaint: Fever Stated Complaint: abd pain/possible UTI Time Seen by Provider: 08/14/20 12:55 - History of Present Illness Initial Comments: 85-year-old female presenting to the emergency department today for chief complaint of fevers lower abdominal discomfort not feeling well. Patient states she has had lower abdominal pressure and pain as she is finishing pain. She states she has not felt well today. Patient denies any chest pain shortness of breath nausea vomiting back pain. Patient denies hemoptysis. Pt denies cough, congestion. Patient has no additional complaints Remaining ROS (-). Per EMS temperature 100.6F. (Cecilia Bruner) - Related Data Home Medications Medication Instructions Recorded Confirmed Ipratropium-Albuterol Nebulize 3 ml INHALATION RT-QID PRN 05/27/19 09/10/19 [Duoneb 0.5 mg-3 mg/3 ml Soln] allopurinoL [Zyloprim] 100 mg PO DAILY@0800 05/27/19 09/10/19 Ezetimibe/Simvastatin [Vytorin 1 tab PO DAILY 09/10/19 09/10/19 10-10 mg] Gabapentin [Neurontin] 100 mg PO DAILY 09/10/19 09/10/19 Warfarin Sodium [Coumadin] 1 mg PO TUTHSA 09/10/19 09/11/19 dilTIAZem HCL [Diltiazem HCl] 60 mg PO DAILY 09/10/19 09/10/19 Albuterol Sulfate [Accuneb] 3 ml INHALATION RT-TID PRN 09/11/19 09/11/19 Previous Rx's Medication Instructions Recorded Metoprolol Tartrate [Lopressor] 50 mg PO BID tab 06/01/19 Budesonide [Pulmicort] 0.5 mg INHALATION RT-BID ml 06/02/19 Acetaminophen Tab [Tylenol] 650 mg PO Q4H PRN tab 09/14/19 Aspirin 81 mg PO DAILY@1700 chew 09/14/19 Atorvastatin [Lipitor] 10 mg PO HS@2100 tab 09/14/19 Docusate [Colace] 200 mg PO BID@0800,1700 cap 09/14/19 Furosemide [Lasix] 40 mg PO BID@0800,1700 tab 09/14/19 HYDROcodone/APAP 5-325MG [[place] 1 each PO Q6HR PRN tab 09/14/19 5-325] LORazepam [Ativan] 0.5 mg PO BID tab 09/14/19 Pantoprazole [Protonix] 40 mg PO AC-BRKFST tablet. 09/14/19 Spironolactone [Aldactone] 25 mg PO DAILY@0800 #30 tab 09/14/19 lisinopriL [Zestril] 2.5 mg PO DAILY@0800 #30 tab 09/14/19 Allergies Allergy/AdvReac Type Severity Reaction Status Date / Time No Known Allergies Allergy Verified 09/10/19 13:11 Review of Systems ROS Other: All systems not noted in ROS Statement are negative. <Cecilia Bruner - Last Filed: 08/14/20 13:52> ROS Other: All systems not noted in ROS Statement are negative. <Vladimir Lyon - Last Filed: 08/14/20 14:55> ROS Statement: Those systems with pertinent positive or pertinent negative responses have been documented in the HPI. Past Medical History Past Medical History: Atrial Fibrillation, Chest Pain / Angina, Heart Failure, COPD, CVA/TIA, Hyperlipidemia, Hypertension, Pneumonia, Renal Disease Additional Past Medical History / Comment(s): COPD, severe MR, severe TR, moderate to severe pulmonary hypertension, chronic atrial fibrillation, hypertension, hyperlipidemia, history of hypercoagulability and and the patient has been maintained on anticoagulation with warfarin, abdominal hernia, diverticulosis and previous history of diverticulitis, history of urinary incontinence, hypertension, history of CVA History of Any Multi-Drug Resistant Organisms: None Reported Past Surgical History: Adenoidectomy, Appendectomy, Breast Surgery, Heart Catheterization, Hysterectomy, Tonsillectomy Additional Past Surgical History / Comment(s): CATARACTS-LENS IMPLANTS, CYSTOCELE/RECTOCELE AND HOLE IN BOWEL REPAIRED, LT HAND THUMB SX, BREAST BIOPSY- NEG, 4 cm AAA, L little toe bone removed, hammer toe surgery Past Anesthesia/Blood Transfusion Reactions: No Reported Reaction Past Psychological History: No Psychological Hx Reported Smoking Status: Never smoker Past Alcohol Use History: None Reported Past Drug Use History: None Reported - Past Family History Father Family Medical History: Cancer, Myocardial Infarction ([place]) Additional Family Medical History / Comment(s): ANEURYSMS, BONE CA. AGE 75 FROM ANEURYSM IN HEAD Mother Family Medical History: Congestive Heart Failure (CHF) Additional Family Medical History / Comment(s): AT AGE 84 <Cecilia Bruner - Last Filed: 08/14/20 13:52> General Exam Limitations: no limitations <Cecilia Bruner - Last Filed: 08/14/20 13:52> - General Exam Comments Initial Comments: General: The patient is awake and alert, in no distress Eye: Pupils are equal, round and reactive to light, extra-ocular movements are intact. No nystagmus. There is normal conjunctiva bilaterally. No signs of icterus. Cardiovascular: There is a regular rate and rhythm. No murmur, rub or gallop is appreciated. Respiratory: Lungs are clear to auscultation, respirations are non-labored, breath sounds are equal. No wheezes, stridor, rales, or rhonchi. Gastrointestinal: Soft, non-distended, suprapubic tenderness, andomen is without masses or organomegaly noted. There is no rebound or guarding present. Musculoskeletal: Normal ROM, no tenderness. Strength 5/5. Sensation intact. Radial pulses equal bilaterally 2+. Neurological: A&O x 3. CN II-XII intact grossly, There are no obvious motor or sensory deficits. Coordination appears grossly intact. Speech is normal. Skin: Skin is warm and dry and no rashes or lesions are noted. Psychiatric: Cooperative, appropriate mood & affect, normal judgment. (Cecilia Bruner) Course <Vladimir Lyon - Last Filed: 08/14/20 14:55> Vital Signs 08/14/20 12:53 Temperature 99.2 F Pulse Rate 91 Respiratory 18 Rate Blood Pressure 142/89 O2 Sat by Pulse 94 L Oximetry - Reevaluation(s) Reevaluation #1: 08/14/20 14:54 Patient reevaluated and reexamined by myself, Dr. Lyon. Patient resting comfortably in bed. I do agree with PAs findings. This includes diagnostic interpretation and treatment plan. Patient does have moderate tenderness of the lower abdomen, more so suprapubic. Patient updated on results and plan. Case was also discussed in detail with Dr. Vera rogers, who will admit his patient. 08/14/20 14:54 Patient does meet sepsis criteria diagnosed at 1454. Blood culture and lactic acid have been ordered. IV antibiotics will be added. (Vladimir Lyon) Medical Decision Making - Lab Data Result diagrams: 08/14/20 13:03 08/14/20 13:03 <Cecilia Bruner - Last Filed: 08/14/20 13:52> - Lab Data Result diagrams: 08/14/20 13:03 08/14/20 13:03 - Radiology Data Radiology results: report reviewed (Computed tomography scan abdomen pelvis concerning for diverticulitis. Old aneurysm repair.) <Vladimir Lyon - Last Filed: 08/14/20 14:55> - Lab Data Lab Results 08/14/20 08/14/20 08/14/20 Range/Units 13:03 13:03 13:03 WBC 15.6 H (3.8-10.6) k/uL RBC 5.01 (3.80-5.40) m/uL Hgb 15.2 (11.4-16.0) gm/dL Hct 45.5 (34.0-46.0) % MCV 91.0 (80.0-100.0) fL MCH 30.3 (25.0-35.0) pg MCHC 33.3 (31.0-37.0) g/dL RDW 15.4 (11.5-15.5) % Plt Count 346 (150-450) k/uL MPV 6.5 Neutrophils % 86 % Lymphocytes % 6 % Monocytes % 6 % Eosinophils % 2 % Basophils % 0 % Neutrophils # 13.4 H (1.3-7.7) k/uL Lymphocytes # 1.0 (1.0-4.8) k/uL Monocytes # 0.9 (0-1.0) k/uL Eosinophils # 0.2 (0-0.7) k/uL Basophils # 0.0 (0-0.2) k/uL Sodium 138 (137-145) mmol/L Potassium 4.5 (3.5-5.1) mmol/L Chloride 106 (98-107) mmol/L Carbon Dioxide 25 (22-30) mmol/L Anion Gap 7 mmol/L BUN 29 H (7-17) mg/dL Creatinine 1.02 (0.52-1.04) mg/dL Est GFR (CKD-EPI)AfAm 59 (>60 ml/min/1.73 sqM) Est GFR (CKD-EPI)NonAf 51 (>60 ml/min/1.73 sqM) Glucose 94 (74-99) mg/dL Plasma Lactic Acid Romero (0.7-2.0) mmol/L Calcium 9.4 (8.4-10.2) mg/dL Total Bilirubin 0.8 (0.2-1.3) mg/dL AST 28 (14-36) U/L ALT 18 (4-34) U/L Alkaline Phosphatase 108 (38-126) U/L Total Protein 6.5 (6.3-8.2) g/dL Albumin 3.6 (3.5-5.0) g/dL Urine Color Yellow Urine Appearance Clear (Clear) Urine pH 6.0 (5.0-8.0) Ur Specific [place] 1.018 (1.001-1.035) Urine Protein Negative (Negative) Urine Glucose (UA) Negative (Negative) Urine Ketones Negative (Negative) Urine Blood Trace H (Negative) Urine Nitrite Positive H (Negative) Urine Bilirubin Negative (Negative) Urine Urobilinogen <2.0 (<2.0) mg/dL Ur Leukocyte Esterase Small H (Negative) Urine RBC 2 (0-5) /hpf Urine WBC 20 H (0-5) /hpf Urine Bacteria Many H (None) /hpf Urine Mucus Rare H (None) /hpf 08/14/20 Range/Units 13:03 WBC (3.8-10.6) k/uL RBC (3.80-5.40) m/uL Hgb (11.4-16.0) gm/dL Hct (34.0-46.0) % MCV (80.0-100.0) fL MCH (25.0-35.0) pg MCHC (31.0-37.0) g/dL RDW (11.5-15.5) % Plt Count (150-450) k/uL MPV Neutrophils % % Lymphocytes % % Monocytes % % Eosinophils % % Basophils % % Neutrophils # (1.3-7.7) k/uL Lymphocytes # (1.0-4.8) k/uL Monocytes # (0-1.0) k/uL Eosinophils # (0-0.7) k/uL Basophils # (0-0.2) k/uL Sodium (137-145) mmol/L Potassium (3.5-5.1) mmol/L Chloride (98-107) mmol/L Carbon Dioxide (22-30) mmol/L Anion Gap mmol/L BUN (7-17) mg/dL Creatinine (0.52-1.04) mg/dL Est GFR (CKD-EPI)AfAm (>60 ml/min/1.73 sqM) Est GFR (CKD-EPI)NonAf (>60 ml/min/1.73 sqM) Glucose (74-99) mg/dL Plasma Lactic Acid Romero 0.9 (0.7-2.0) mmol/L Calcium (8.4-10.2) mg/dL Total Bilirubin (0.2-1.3) mg/dL AST (14-36) U/L ALT (4-34) U/L Alkaline Phosphatase (38-126) U/L Total Protein (6.3-8.2) g/dL Albumin (3.5-5.0) g/dL Urine Color Urine Appearance (Clear) Urine pH (5.0-8.0) Ur Specific [place] (1.001-1.035) Urine Protein (Negative) Urine Glucose (UA) (Negative) Urine Ketones (Negative) Urine Blood (Negative) Urine Nitrite (Negative) Urine Bilirubin (Negative) Urine Urobilinogen (<2.0) mg/dL Ur Leukocyte Esterase (Negative) Urine RBC (0-5) /hpf Urine WBC (0-5) /hpf Urine Bacteria (None) /hpf Urine Mucus (None) /hpf Disposition <Cecilia Bruner - Last Filed: 08/14/20 13:52> Is patient prescribed a controlled substance at d/c from ED?: No Decision Time: 14:55 <Vladimir Lyon - Last Filed: 08/14/20 14:55> Clinical Impression: Diverticulitis, Sepsis Disposition: ADMITTED IP TO THIS HOSP Referrals: Henrique Barber MD [Primary Care Provider] - 1-2 days
--- NOTE | 2020-08-14 14:23 | CT ---
EXAMINATION TYPE: CT abdomen pelvis wo con DATE OF EXAM: 08/14/2020 COMPARISON: 02/02/2020 INDICATION: Fever and lower abdominal pain, possible UTI, history of AAA. DLP: 538.4 mGycm, Automated exposure control for dose reduction was used. CONTRAST: 0 mL of Isovue 300. Study performed without Oral Contrast TECHNIQUE: Axial images were obtained from above the diaphragm to the pubic rami in the axial plane a t 5 mm thick sections. Reconstructed images are reviewed on the computer in the coronal plane. FINDINGS: Limited CT sections are obtained the lung bases. The lung bases are clear. Coronary artery calcific ations present. Vascular calcifications within the descending aorta. Small hiatal hernia is present. CT ABDOMEN: Liver: Normal Spleen: Appears lobular. There is a crescentic calcification at the inferior pole of the spleen. Pancreas: Normal Adrenal glands: The adrenal glands are normal. Gallbladder: Normal Kidneys: No masses are evident. No hydronephrosis is present. There is a cyst on the left kidney me asuring 1.6 cm and 12 Hounsfield units. Aorta: Vascular calcification is within the aorta. Prior aortic aneurysm is evident. The patient has an aortic stent placed with limbs extending into the normal-appearing iliac vessels. Vascular calcif ication is to the iliac vessels Inferior vena cava: Normal. CT PELVIS: Diverticular changes are within the sigmoid colon. In the presacral space there is mild inflammatory change. Some wall thickening through the colon is present. Correlate for acute diverticulitis. Underl kandi neoplasm is considered less likely. No suspicious abscess formation or free air is evident. The study is performed without oral contrast causing limitation portions of the exam. Appendix: Not visualized. Urinary bladder: Normal. Genitourinary structures: Uterus and ovaries not identified. Osseous structures: No suspicious lytic or sclerotic lesions. IMPRESSIONS: 1. Clinical correlation recommended for acute diverticulitis distal sigmoid colon in the presacral s pace. 2. Old abdominal aortic aneurysm repair.
[2020-08-14] MEDS ORDERED: AMPICILLIN-SULBACTAM 3 GM in SODIUM CHLORIDE 0.9% 100 ML IVPB STA (14:56)
[2020-08-14] MEDS ORDERED: NALOXONE 0.4 MG/ML 1 ML VIAL IV PRN (14:56)
[2020-08-14] MEDS ORDERED: ACETAMINOPHEN TAB 325 MG TAB PO PRN (14:56)
[2020-08-14] MEDS ORDERED: SODIUM CHLORIDE 0.9% 1,000 ML IV SCH (15:00)
[2020-08-14] MEDS: MORPHINE SULFATE 4 MG/ML SYRINGE IV PRN ×2 (15:38→21:54)
--- NOTE | 2020-08-14 16:46 | XR ---
EXAMINATION TYPE: XR chest 1V portable DATE OF EXAM: 08/14/2020 COMPARISON: 07/26/2020 HISTORY: COPD. Hypoxemia TECHNIQUE: Single view FINDINGS: There is no heart failure nor confluent pneumonic infiltrate. Costophrenic angles are clear . Thoracic aorta is atheromatous. Bony thorax appears intact. IMPRESSION: No active cardiopulmonary disease. No change.
[2020-08-14] MEDS: DEXTROSE 5%-0.9% NACL 1,000 ML IV SCH (17:03)
[2020-08-14] MEDS: metroNIDAZOLE-NS PMX 500 MG in SALINE 1 100ML.BAG IVPB SCH (17:08)
[2020-08-14 17:41] LABS: INR 1.4 (<1.2); Prothrombin Time 14.3 sec (9.0-12.0)
--- NOTE | 2020-08-14 18:16 | HP ---
HISTORY AND PHYSICAL DATE OF ADMISSION: 08/14/2020 HISTORY OF PRESENT ILLNESS: She is an 85-year-old white female, , date of 1935. She is in the ER, was seen in the emergency room 25 and she will be going to [facility] on the [facility]. CHIEF COMPLAINT: The patient presented to the emergency room because of her severe abdominal pain in the lower abdomen. However, extended to the whole abdomen 2 days ago. This morning associated with nausea and vomiting as well and low-grade temperature. HISTORY OF PRESENT ILLNESS: Mrs. Sandie Virk, who is an 85-year-old white female, has been doing well until she as she stated 2 weeks ago started to have lower abdominal pain and she thought that it may go away and it did not and it is progressively worsening and with the pain in the abdomen and this morning, associated with nausea, vomiting, and severe pain in the lower abdomen. She came to the emergency room and they did a CAT scan and found that probably she had thickening. They did it without contrast with underlying history of chronic kidney disease stage III, and they found that the CT scan suggestive of acute diverticulitis with the presence of leukocytosis as well. The patient has a past medical history with the underlying asthma and exacerbation of pulmonary fibrosis. She is also on oxygen permanently and she adjusted according to her pulse ox and she has also history of coronary artery disease, atherosclerotic heart disease has been followed by Dr. Rendon and her lung was followed by Dr. Servin, pulmonary and Critical Care. The patient had chronic obstructive pulmonary disease, history of respiratory failure in the past with hypoxia and hypercapnia. She had primary hypertension and she had mitral insufficiency. She has history of remote ex smoker with nicotine dependence. She had rheumatic tricuspid insufficiency and she had history of chronic atrial fibrillation and very sensitive to Coumadin and currently she is anticoagulated with Coumadin and the PT and INR was not obtained at the time of admission. She had also history of chronic bronchitis and urinary incontinent. She had history of negative Covid in 07/23/2020 with the testing. SOCIAL HISTORY: She is a and lives alone and she had 2 daughters. The patient is a former smoker. She has been occasional drinker coffee, caffeine derivative and coffee. She has the still the shortness of breath present and we will be obtaining full chest x- ray added as well as they did the urinalysis and they found nitrites which is indicator of infection and will be requesting urine culture. 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 She had no alcohol intake or alcohol abuse. Allergy is unknown. MEDICATION: She is on albuterol inhaler at home and she uses the nebulizers 3 times a day. She is also on allopurinol 100 mg once a day and she is also on warfarin 1 mg once a day with sensitivity to Coumadin. She takes 1.5 mg tablet every evening. She is on diltiazem 60 mg twice a day and Lasix 40 mg twice a day and , simvastatin 10 mg/10 mg once daily. She is on Lopressor 50 mg b.i.d. as well as aspirin 81 mg chewable. She is on albuterol ipratropium as mentioned nebulizers, continuous oxygen 3 L and that is permanent because of the hypoxemia, she is on Symbicort 80 mcg/4.5 mcg and she is taking 2 puffs twice a day and she also has the Ventolin HFA for rescue inhaler, and she also uses Budesonide 0.5 mg suspension for the nebulizers which was prescribed originally by Dr. Servin. REVIEW OF SYMPTOMS: Review of systems currently is mainly she is conscious, alert, oriented, and she was ambulatory, but she has severe pain and main concern of the GI where she did not have bowel movement in the last 2 days, but severe lower abdominal pain and nausea and vomiting this morning and a low-grade temperature at home as well with the underlying CT scan in hospital showed acute diverticulitis. In regard of her pulmonary, she is wheezing with shortness of breath bilaterally. However the chest x-ray was not done in the ER and will request to be done before the patient goes to the floor with the underlying history of pulmonary hypertension as well as pulmonary fibrosis. Now with genitourinary she had incontinence of the urine. Endocrine: There is no evidence of hypo or hyperthyroidism with the underlying history of atrial fibrillation and anticoagulation was Coumadin. The patient could not tolerate the novel anticoagulant as Eliquis or Xarelto. Currently, she had the skin was no complaint. Underlying history of hyperlipidemia and urinary incontinence and blood coagulation disorder as well. PHYSICAL EXAMINATION: On examination, her vital signs on admission was temperature 99.2 Fahrenheit orally, and pulse rate 91, respiratory rate 18 per minute, and blood pressure was 142/89 with a mean 106, and her saturation was 94% and repeat blood pressure down to 105/64 with a mean 77. Her oxygenation and pulse ox changed to 98% all both is on 3 L. The patient is conscious, alert, oriented, able to give history. The head was normocephalic, atraumatic. The pupil was equal reactive with arcus senilis and she has mild hearing deficit and oropharynx she had only 3 teeth in the lower jaw and she had no teeth in the upper jaw and she left her dentures at home, but she does not use the lower dentures or partials. Neck was supple. No JVD. No thyromegaly. No lymphadenopathy. Trachea midline. Chest had increased anteroposterior diameter with the underlying inspiratory/ expiratory rhonchi with history of COPD and chronic hypoxemia and fibrosis. She is now on 3 L. On the heart: PMI in the 5th intercostal space outside midclavicular line with underlying history of cardiomegaly and she had been seen Dr. Rendon, the hedge trimmer. The abdomen is tender and most maximum point of tenderness in the left lower quadrant with the sigmoid diverticulosis. However, it is also tender in the whole colon on the right side and the left side and positive bowel sounds and still the tenderness is present. EXTREMITIES: No edema. Positive pulses and she had the peripheral cyanosis. Neurological is stable. ASSESSMENT: 1. Acute diverticulitis with the CT of the abdomen without contrast as well as leukocytosis as well as symptomatic complaint. 2. Underlying history of chronic obstructive pulmonary disease with the asthma as well as chronic respiratory failure with oxygen mandatory. 3. History of hypertension with hypertensive heart disease. 4. Hyperlipidemia. 5. Urinary incontinence. 6. She had a chronic kidney disease. Continued to have chronic kidney disease stage 3. 7. The echocardiogram was done on 05/28/2019, and that was indicator that she had moderate concentric left ventricular hypertrophy and she has ejection fraction was diminished with 35-40 percent and with the underlying atrial fibrillation. She had a mid inferoseptal left ventricular wall motion abnormality with hypokinesia as well with the underlying ischemic heart disease. 8. She had a mid anteroseptal left ventricular wall hypokinesis and apical lateral left ventricular wall motion hypokinetic as well with severely dilated left atrium more than 40 mL/m2. 9. Underlying chronic congestive heart failure. PLAN: At this time will get: 1. Chest x-ray. 2. Will add Flagyl to the regimen of the treatment and because of the interaction with the allopurinol that was withheld temporary. 3. Resuming her medication as well as the antibiotic as well as we will be obtaining inhalation therapy as well to be ordered. 4. Consultation with Dr. [facility] for further treatment if needed as well as evaluation. DIAN / DAVIDN: [id number] /
[2020-08-14] MEDS ORDERED: WARFARIN 2 MG TAB PO ONE (18:45)
[2020-08-14] MEDS: IPRATROPIUM-ALBUTEROL 3 ML NEB INHALATION SCH (20:36)
[2020-08-14] MEDS ORDERED: WARFARIN 1 MG TAB PO SCH (21:00)
[2020-08-14] MEDS: METOPROLOL TARTRATE 50 MG TAB PO SCH (21:33)
[2020-08-14] MEDS: DILTIAZEM ORAL 30 MG TAB PO SCH (21:33)
[2020-08-14] MEDS: AMPICILLIN-SULBACTAM 1.5 GM in SODIUM CHLORIDE 0.9% 50 ML IVPB SCH (21:35)
[2020-08-15] MEDS: metroNIDAZOLE-NS PMX 500 MG in SALINE 1 100ML.BAG IVPB SCH ×4 (00:06→23:41)
[2020-08-15] MEDS: ONDANSETRON 4 MG/2 ML VIAL IVP PRN ×2 (01:15→20:10)
[2020-08-15] MEDS: AMPICILLIN-SULBACTAM 1.5 GM in SODIUM CHLORIDE 0.9% 50 ML IVPB SCH ×4 (04:02→22:24)
[2020-08-15] MEDS: DEXTROSE 5%-0.9% NACL 1,000 ML IV SCH ×2 (05:45→20:12)
[2020-08-15 07:02] LABS: INR 1.6 (<1.2)
[2020-08-15] MEDS: IPRATROPIUM-ALBUTEROL 3 ML NEB INHALATION SCH ×4 (08:04→19:57)
[2020-08-15] MEDS: PANTOPRAZOLE 40 MG/10 ML VIAL IV SCH (08:22)
[2020-08-15] MEDS: FUROSEMIDE 40 MG TAB PO SCH (08:22)
[2020-08-15] MEDS: EZETIMIBE 10 MG TAB PO SCH (08:26)
[2020-08-15] MEDS: DILTIAZEM ORAL 30 MG TAB PO SCH ×2 (08:26→20:10)
[2020-08-15] MEDS: METOPROLOL TARTRATE 50 MG TAB PO SCH ×2 (08:27→20:10)
[2020-08-15] MEDS: MORPHINE SULFATE 4 MG/ML SYRINGE IV PRN ×3 (08:36→23:41)
[2020-08-15 09:22] LABS: HCT 39.2 % (34.0-46.0); HGB 12.2 gm/dL (11.4-16.0); Hypochromasia Moderate; MCH 29.4 pg (25.0-35.0); MCHC 31.1 g/dL (31.0-37.0); MCV 94.5 fL (80.0-100.0); Platelet Count 270 k/uL (150-450); RBC 4.15 m/uL (3.80-5.40); RDW 15.6 % (11.5-15.5); WBC 12.8 k/uL (3.8-10.6)
--- NOTE | 2020-08-15 10:45 | P.PN ---
Subjective Progress Note Date: 08/15/20 (Acute diverticulitis, UTI, admitted inpatient.) Principal diagnosis: Diagnosis: #1 acute diverticular disease with acute diverticulitis very fair to the computed tomography scan of the abdomen without contrast. #2 urinary tract infection with the presence of nitrites, culture is pending result. #3 leukocytosis secondary to the above. #4 chronic respiratory failure with the chronic oxygen use 2-3 L/m. #5 underlying history of COPD, asthma with wheezing, also chronic bronchitis. #6 hypertension with hypertensive heart disease. #7 Edie Lynne lipidemia #8 nausea and vomiting and low-grade temperature associated with the above diagnosis. #9 chronic atrial fibrillation on anticoagulant currently subtherapeutic. Progress note service 08/15/20, Dictation by Dr. Barber, Patient seen and evaluated today [id number]. Patient is conscious alert oriented 3, spoke to her daughter also on the phone today with the discussion on the diagnosis and the treatment patient is on inpatient status due to her acute diverticulitis and the eighth severe abdominal pain in the lower abdomen with the leukocytosis and the nausea and vomiting. Today exam: #1 her vital sign temperature 90.8 F oral pulse 85 bpm regular. Respiratory rate 22/m nonlabored Her blood pressure 119/74 and mean 89 , at 4:31 AM today her blood pressure was 92/57 with a mean 68., Pulse ox initially was 92 on 3 L however improved today to 9799 percent on 3 L. Head was normocephalic and atraumatic, pupil was equal reactive, hearing mildly impaired, oropharynx edentulous upper and 3- incisor tooth on the lower jaw. Neck was supple no JVD no thyromegaly no lymphadenopathy trachea midline. Chest: Scattered rhonchi and wheezes and inspiratory expiratory with the underlying history of COPD on bronchodilator inhalation nebulizers. Heart: Underlying history of irregular heart beat with the atrial fibrillation paroxysmal, and she is on Coumadin. And we will be obtaining EKG to assess her heart rate and if she become sinus. Abdomen: Positive bowel sound, tenderness on both right and left colon with the maximum tenderness on the left lower quadrant, consultation with the GI was ordered and patient not seen yet. Extremities: No edema. Pulses. Neurologically stable ambulatory. And on anticoagulant. Assessment: #1 acute diverticulitis, leukocytosis improved to 12.8 WBC with drop of hemoglobin 3 g with hydration with the possible associated dehydration. #2 patient with anticoagulation and her pro time and INR is supple therapeutic with the PT 16 and INR 1.6 and will ask the pharmacy to adjust her doses. #3 history of chronic kidney disease stage III. #4 COPD, asthma, chronic bronchitis. #5 history of atrial fibrillation paroxysmal. #6 chronic respiratory failure on oxygen permanent 2-3 L/m secondary to her lung disease. #7 advanced degenerative osteoarthritis generalized. Plan: Patient on full liquid diet will continue with still presence of tenderness on the:, Waiting for the gastroenterology advice and consultation for for further treatment. Continue the antibiotic. Pharmacy to dose the Coumadin. As it is supple therapeutic. Objective - Vital Signs Vital signs: Vital Signs Temp 98 F 08/15/20 08:25 Pulse 85 08/15/20 08:25 Resp 22 08/15/20 08:25 BP 119/74 08/15/20 08:25 Pulse Ox 99 08/15/20 08:25 Intake & Output 08/14/20 08/15/20 08/15/20 18:59 06:59 18:59 Intake Total 1400 Balance 1400 Weight 68.039 kg 68.039 kg Intake: Intake, IV Titration 900 Amount Ampicillin-Sulbactam 1.5 200 gm In Sodium Chloride 0.9 % 50 ml @ 100 mls/hr IVPB Q6H [facility] Rx#:[id number] Dextrose 5%-0.9% NaCl 1, 600 000 ml @ 75 mls/hr IV . [id number] [facility] Rx#:[id number] metroNIDAZOLE-NS PMX 500 100 mg In Saline 1 100ml.bag @ 100 mls/hr IVPB Q8HR [facility] Rx#:[id number] Oral 500 Other: Voiding Method Bedside Commode Diaper # Voids 2 - Labs CBC & Chem 7: 08/15/20 06:16 08/14/20 13:03 Labs: Abnormal Lab Results - Last 24 Hours (Table) 08/14/20 08/14/20 08/14/20 Range/Units 13:03 13:03 13:03 WBC 15.6 H (3.8-10.6) k/uL RDW (11.5-15.5) % Neutrophils # 13.4 H (1.3-7.7) k/uL PT (9.0-12.0) sec INR (<1.2) BUN 29 H (7-17) mg/dL Urine Blood Trace H (Negative) Urine Nitrite Positive H (Negative) Ur Leukocyte Esterase Small H (Negative) Urine WBC 20 H (0-5) /hpf Urine Bacteria Many H (None) /hpf Urine Mucus Rare H (None) /hpf 08/14/20 08/15/20 08/15/20 Range/Units 17:14 06:16 06:16 WBC 12.8 H (3.8-10.6) k/uL RDW 15.6 H (11.5-15.5) % Neutrophils # (1.3-7.7) k/uL PT 14.3 H 16.0 H (9.0-12.0) sec INR 1.4 H 1.6 H (<1.2) BUN (7-17) mg/dL Urine Blood (Negative) Urine Nitrite (Negative) Ur Leukocyte Esterase (Negative) Urine WBC (0-5) /hpf Urine Bacteria (None) /hpf Urine Mucus (None) /hpf Microbiology - Last 24 Hours (Table) 08/14/20 13:03 Urine Culture - Preliminary Urine,Voided
[2020-08-15] MEDS ORDERED: WARFARIN 1 MG TAB PO ONE (18:00)
[2020-08-16] MEDS: AMPICILLIN-SULBACTAM 1.5 GM in SODIUM CHLORIDE 0.9% 50 ML IVPB SCH ×4 (03:45→22:00)
--- NOTE | 2020-08-16 06:37 | P.CONS ---
History of Present Illness - Reason for Consult Consult date: 08/15/20 Diverticulitis Requesting physician: Henrique Barber - Chief Complaint Abdominal pain - History of Present Illness 85-year-old female with multiple medical comorbidities including hypertension, hyperlipidemia, pulmonary hypertension, chronic kidney disease, and osteoarthritis who presented to the hospital due to abdominal pain, nausea, vomiting and diarrhea. Patient reports one week of symptoms of abdominal pain and cramping. She reports associated loose frequent bowel movements with no GI bleeding noted. Patient also had episodes of nausea and vomiting. The patien t's last colonoscopy was over 10 years ago and she does have a history of diverticulitis in the past. She underwent computed tomography scan of the abdomen and pelvis on presentation with diverticular changes in the sigmoid colon with mild inflammatory change in the sacral space and wall thickening through the colon with suggestion of uncomplicated diverticulitis. Currently the patient is receiving antibiotic therapy. Review of Systems REVIEW OF SYSTEMS: CONSTITUTIONAL: Denies any fevers, chills, weight change or fatigue, however the patient was noted to have fevers on presentation. CARDIOVASCULAR: Denies any chest pain, palpitations high or low blood pressures RESPIRATORY: Denies any shortness of breath, hemoptysis or cough. GENITOURINARY: No dysuria or hematuria. MUSCULOSKELETAL: No weakness reported. SKIN: Denies any new rashes or lesions, jaundice or pallor. PSYCHIATRIC: Denies any depression or anxiety. NEUROLOGY: Denies headache, denies any new focal deficits. EARS/NOSE/THROAT: No recent hearing change, congestion, nasal discharge or sore throat. EYES: No pain in eyes, discharge or change in vision. GASTROINTESTINAL: As per HPI. Past Medical History Past Medical History: Atrial Fibrillation, Chest Pain / Angina, Heart Failure, COPD, CVA/TIA, Hyperlipidemia, Hypertension, Pneumonia, Renal Disease Additional Past Medical History / Comment(s): COPD, severe MR, severe TR, moderate to severe pulmonary hypertension, chronic atrial fibrillation, hypertension, hyperlipidemia, history of hypercoagulability and and the patient has been maintained on anticoagulation with warfarin, abdominal hernia, diverticulosis and previous history of diverticulitis, history of urinary incontinence, hypertension, history of CVA History of Any Multi-Drug Resistant Organisms: None Reported Past Surgical History: Adenoidectomy, Appendectomy, Breast Surgery, Heart Catheterization, Hysterectomy, Tonsillectomy Additional Past Surgical History / Comment(s): CATARACTS-LENS IMPLANTS, CYSTOCELE/RECTOCELE AND HOLE IN BOWEL REPAIRED, LT HAND THUMB SX, BREAST BIOPSY- NEG, 4 cm AAA, L little toe bone removed, hammer toe surgery Past Anesthesia/Blood Transfusion Reactions: No Reported Reaction Past Psychological History: No Psychological Hx Reported Additional Psychological History / Comment(s): related to procedure Smoking Status: Never smoker Past Alcohol Use History: None Reported Additional Past Alcohol Use History / Comment(s): 1/2 PPD Past Drug Use History: None Reported - Past Family History Father Family Medical History: Cancer, Myocardial Infarction ([place]) Additional Family Medical History / Comment(s): ANEURYSMS, BONE CA. AGE 75 FROM ANEURYSM IN HEAD Mother Family Medical History: Congestive Heart Failure (CHF) Additional Family Medical History / Comment(s): AT AGE 84 Medications and Allergies Home Medications Medication Instructions Recorded Confirmed Type allopurinoL [Zyloprim] 100 mg PO DAILY 05/27/19 08/14/20 History Metoprolol Tartrate [Lopressor] 50 mg PO BID tab 06/01/19 08/14/20 Rx Ezetimibe/Simvastatin [Vytorin 1 tab PO DAILY 09/10/19 08/14/20 History 10-10 mg] dilTIAZem HCL [Diltiazem HCl] 30 mg PO BID 09/10/19 08/14/20 History Furosemide [Lasix] 40 mg PO DAILY 08/14/20 08/14/20 History Tolterodine Tartrate [Detrol LA] 2 mg PO DAILY 08/14/20 08/14/20 History Warfarin [Coumadin] 1 mg PO HS 08/14/20 08/14/20 History Allergies Allergy/AdvReac Type Severity Reaction Status Date / Time No Known Allergies Allergy Verified 09/10/19 13:11 Physical Exam Vitals: Vital Signs Temp Pulse Pulse Resp BP BP BP 08/15/20 11:58 97.9 F 82 19 99/58 08/15/20 11:18 60 08/15/20 11:05 60 08/15/20 08:25 98 F 85 22 119/74 08/15/20 04:31 97.5 F L 81 18 92/57 08/14/20 20:44 52 L 08/14/20 20:39 08/14/20 20:38 53 L 08/14/20 20:05 80 16 08/14/20 19:35 98.4 F 80 16 101/62 08/14/20 15:29 97.8 F 91 16 105/64 Pulse Ox 08/15/20 11:58 99 08/15/20 11:18 08/15/20 11:05 08/15/20 08:25 99 08/15/20 04:31 97 08/14/20 20:44 08/14/20 20:39 92 L 08/14/20 20:38 08/14/20 20:05 08/14/20 19:35 98 08/14/20 15:29 98 Intake and Output 08/14/20 08/15/20 08/15/20 22:59 06:59 14:59 Intake Total 1400 Balance 1400 Intake: Intake, IV Titration 900 Amount Ampicillin-Sulbactam 1.5 200 gm In Sodium Chloride 0.9 % 50 ml @ 100 mls/hr IVPB Q6H [facility] Rx#:[id number] Dextrose 5%-0.9% NaCl 1, 600 000 ml @ 75 mls/hr IV . [id number] [facility] Rx#:[id number] metroNIDAZOLE-NS PMX 500 100 mg In Saline 1 100ml.bag @ 100 mls/hr IVPB Q8HR [facility] Rx#:[id number] Oral 500 Other: Voiding Method Bedside Commode Diaper # Voids 2 1 Weight 68.039 kg On physical examination, patient appears comfortable in no apparent distress. HEAD: Normocephalic, atraumatic. EYES: No scleral icterus. No conjunctival injection. MOUTH: No lesions, tongue midline. NECK: Trachea midline, no gross abnormalities. CHEST: Clear to auscultation with no wheezing or rhonchi appreciated. HEART: S1-S2 appreciated. ABDOMEN: Soft, mildly tender to palpation. Bowel sounds are positive. No organomegaly. No guarding or rigidity. EXTREMITIES: No pedal edema. SKIN: No rashes, no jaundice. NEUROLOGIC: Alert and oriented to person. No focal deficits. Results CBC & Chem 7: 08/15/20 06:16 08/14/20 13:03 Labs: Abnormal Lab Results - Last 24 Hours (Table) 08/14/20 08/15/20 08/15/20 Range/Units 17:14 06:16 06:16 WBC 12.8 H (3.8-10.6) k/uL RDW 15.6 H (11.5-15.5) % PT 14.3 H 16.0 H (9.0-12.0) sec INR 1.4 H 1.6 H (<1.2) Microbiology - Last 24 Hours (Table) 08/14/20 13:03 Urine Culture - Preliminary Urine,Voided CT scan - abdomen: report reviewed (Computed tomography scan of the abdomen with findings of diverticular changes in the sigmoid colon with mild inflammatory changes in the sacral space with wall thickening through the colon suggestive of uncomplicated diverticulitis.) Assessment and Plan (1) Diverticulitis Narrative/Plan: 85-year-old female with multiple medical comorbidities presenting to the hospital due to abdominal pain, nausea vomiting, and diarrhea. Patient has a history of diverticulitis in the past with last colonoscopy over 10 years ago. She denies any signs or symptoms of GI bleeding. Patient was found to have CT findings of the abdomen suggestive of acute uncomplicated diverticulitis. Current Visit: Yes Status: Acute Code(s): K57.92 - DVTRCLI OF INTEST, PART UNSP, W/O PERF OR ABSCESS W/O BLEED SNOMED Code(s): 975760700 (2) Abdominal pain Current Visit: No Status: Acute Code(s): R10.9 - UNSPECIFIED ABDOMINAL PAIN SNOMED Code(s): 67170144 Plan: Supportive care Full liquid diet, advance to low fiber low residual as tolerated Continue broad-spectrum antibiotic therapy Continue gentle IV fluid hydration Continue pain control Encourage ambulation as tolerated No plans for endoscopic evaluation at this time Consideration is for colonoscopy in 4-6 weeks after resolution of diverticulitis if medically stable at that time in the outpatient setting Thank you for allowing us to participate in the care of the patient
[2020-08-16] MEDS: MORPHINE SULFATE 4 MG/ML SYRINGE IV PRN ×3 (07:02→22:03)
[2020-08-16] MEDS: PANTOPRAZOLE 40 MG/10 ML VIAL IV SCH (07:05)
[2020-08-16] MEDS: DILTIAZEM ORAL 30 MG TAB PO SCH ×2 (07:05→20:11)
[2020-08-16] MEDS: METOPROLOL TARTRATE 50 MG TAB PO SCH ×2 (07:05→20:11)
[2020-08-16] MEDS: EZETIMIBE 10 MG TAB PO SCH (07:05)
[2020-08-16] MEDS: FUROSEMIDE 40 MG TAB PO SCH (07:05)
[2020-08-16] MEDS: metroNIDAZOLE-NS PMX 500 MG in SALINE 1 100ML.BAG IVPB SCH ×3 (07:06→23:29)
[2020-08-16] MEDS: IPRATROPIUM-ALBUTEROL 3 ML NEB INHALATION SCH ×4 (07:56→20:10)
[2020-08-16 09:32] LABS: INR 2.13 (0.90-1.11); Prothrombin Time 22.1 sec (9.9-11.9)
[2020-08-16 11:21] LABS: HCT 39.4 % (34.0-46.0); HGB 12.1 gm/dL (11.4-16.0); Hypochromasia Marked; MCH 29.3 pg (25.0-35.0); MCHC 30.7 g/dL (31.0-37.0); MCV 95.5 fL (80.0-100.0); Mean Platelet Volume 7.5; Platelet Count 255 k/uL (150-450); RBC 4.13 m/uL (3.80-5.40); RDW 15.6 % (11.5-15.5); WBC 9.4 k/uL (3.8-10.6)
--- NOTE | 2020-08-16 13:04 | P.PN ---
Subjective Progress Note Date: 08/16/20 Principal diagnosis: Diverticulitis Patient is seen and examined lying in bed. She states she still having diffuse lower abdominal pain and cramping. She denies any bowel movements and she's been here. Denies any rectal bleeding. She is on a full liquid diet. She denies any nausea or vomiting. CBC pending. She remains on broad-spectrum antibiotics. Objective - Vital Signs Vital signs: Vital Signs Temp 98.1 F 08/16/20 04:17 Pulse 74 08/16/20 07:02 Resp 18 08/16/20 04:17 BP 118/55 08/16/20 07:02 Pulse Ox 96 08/16/20 04:17 Intake & Output 08/15/20 08/16/20 08/16/20 18:59 06:59 18:59 Intake Total 1000 Balance 1000 Intake: Intake, IV Titration 900 Amount Dextrose 5%-0.9% NaCl 1, 900 000 ml @ 75 mls/hr IV . [id number] [facility] Rx#:[id number] Oral 100 Other: Voiding Method Bedside Commode Diaper # Voids 4 4 3 - Exam General appearance: The patient is alert, oriented, appears in no acute distress. HET: Head is normocephalic and atraumatic. Conjunctiva pink. Sclera anicteric. Neck: Supple without lymphadenopathy. Abdomen: Soft, few slower abdominal tenderness, nondistended with bowel sounds. No guarding or rigidity. Extremities: Normal skin color and turgor. No pedal edema Skin: No rashes, no jaundice Neurological: No focal deficits. Alert and oriented 3. - Labs CBC & Chem 7: 08/16/20 04:51 08/14/20 13:03 Labs: Abnormal Lab Results - Last 24 Hours (Table) 08/16/20 Range/Units 04:51 PT 22.1 H (9.9-11.9) sec INR 2.13 H (0.90-1.11) Microbiology - Last 24 Hours (Table) 08/14/20 13:03 Urine Culture - Preliminary Urine,Voided Gram Neg Bacilli 08/14/20 13:03 Blood Culture - Preliminary Blood No Growth after 24 hours 08/14/20 13:03 Blood Culture - Preliminary Blood No Growth after 24 hours Assessment and Plan (1) Diverticulitis Narrative/Plan: 85-year-old female with multiple medical comorbidities [facility] due to abdominal pain, nausea vomiting, and diarrhea. Patient has a history of diverticulitis in the past with last colonoscopy over 10 years ago. She denies any signs or symptoms of GI bleeding. Patient was found to have CT findings of the abdomen suggestive of acute uncomplicated diverticulitis. Current Visit: Yes Status: Acute Code(s): K57.92 - DVTRCLI OF INTEST, PART UNSP, W/O PERF OR ABSCESS W/O BLEED SNOMED Code(s): 085959523 (2) Abdominal pain Current Visit: No Status: Acute Code(s): R10.9 - UNSPECIFIED ABDOMINAL PAIN SNOMED Code(s): 17802595 Plan: Supportive care Full liquid diet, advance to low fiber low residual as tolerated Continue broad-spectrum antibiotic therapy Continue gentle IV fluid hydration Continue pain control Encourage ambulation as tolerated No plans for endoscopic evaluation at this time Consideration is for colonoscopy in 4-6 weeks after resolution of diverticulitis if medically stable at that time in the outpatient setting Thank you for allowing us to participate in the care of the patient, we will continue to monitor Dr. Reddy I agree with the dictator's note, documented as a scribe by Verito Greco.
[2020-08-16] MEDS: DEXTROSE 5%-0.9% NACL 1,000 ML IV SCH ×3 (13:40→23:29)
[2020-08-16] MEDS ORDERED: WARFARIN 1 MG TAB PO SCH (18:00)
--- NOTE | 2020-08-16 21:40 | P.PN ---
Subjective Progress Note Date: 08/16/20 (Acute diverticulitis, urine gram-negative.) Progress note dictation Date of service 08/16/[address] Barber. Patient seen and evaluated [id number] and discussed with the nursing attendance RN Gemini as well. Patient is conscious alert oriented, nursing hourly sales staff dictating that she had hypotension and we did the order for holding medication if the blood pressure 120 systolic or below. Patient still complaining of pain of the lower abdomen with the sigmoid diverticulitis by computed tomography scan however patient had all of the colon is tend by palpation, and bowel sound is present. Her laboratories indicating white count improving to 9.4 and hemoglobin 12.1 and hematocrit 39.4. I did request pharmacy to monitor the anticoagulation with Coumadin currently her PT 22.1 and INR 2.13 which is therapeutic. The chemistry was done on the . On examination: Patient conscious alert oriented 3 and that she still had wheezing with the underlying chronic COPD. Head was normocephalic and atraumatic pupil was equal reactive, conjunctiva was pink sclera was nonicteric. Oropharynx negative Neck was supple no JVD no thyromegaly no lymphadenopathy. Chest she has increased anteroposterior diameter with the history of ex-smoker and COPD with asthma and chronic bronchitis. History of pulmonary fibrosis. And chronic hypoxemia and chronic respiratory failure on permanent oxygen at home 2-3 L/m. GI patient seen by Dr. Yan Bolton ice carver and his PA Mendoza as well recommendation on the chart. On exam of the abdomen frame tender on the sigmoid and ascending colon as well she had normal BM but she is also on full liquid diet, recommendation of ambulation from the GI. Which is ordered today Extremities no edema and positive pulses. Neurologically stable and will start ambulation. Assessment and plan: #1 hypotension and will hold of the medication if the blood pressure below 120 systolic. #2. Obtain previous echocardiogram to the chart for evaluation. #3 found that the IV was discontinued and will resume the IV in the 100 mL an hour D5 0.9 normal saline patient is not a diabetic and she is not eating. #4 she is on antibiotic continued, start ambulation with every shift. #5 obtain labs in the morning. Objective - Vital Signs Vital signs: Vital Signs Temp 98.5 F 08/16/20 20:32 Pulse 83 08/16/20 20:32 Resp 18 08/16/20 20:32 BP 97/62 08/16/20 20:32 Pulse Ox 96 08/16/20 20:32 Intake & Output 08/16/20 08/16/20 08/17/20 06:59 18:59 06:59 Intake Total 1000 600 Balance 1000 600 Intake: Intake, IV Titration 900 600 Amount Dextrose 5%-0.9% NaCl 1, 600 000 ml @ 100 mls/hr IV . Q10H [facility] Rx#:[id number] Dextrose 5%-0.9% NaCl 1, 900 000 ml @ 75 mls/hr IV . [id number] [facility] Rx#:[id number] Oral 100 Other: Voiding Method Bedside Commode Diaper # Voids 4 8 - Labs CBC & Chem 7: 08/16/20 04:51 08/14/20 13:03 Labs: Abnormal Lab Results - Last 24 Hours (Table) 08/16/20 08/16/20 Range/Units 04:51 04:51 MCHC 30.7 L (31.0-37.0) g/dL RDW 15.6 H (11.5-15.5) % PT 22.1 H (9.9-11.9) sec INR 2.13 H (0.90-1.11) Microbiology - Last 24 Hours (Table) 08/14/20 13:03 Blood Culture - Preliminary Blood No Growth after 48 hours 08/14/20 13:03 Blood Culture - Preliminary Blood No Growth after 48 hours 08/14/20 13:03 Urine Culture - Preliminary Urine,Voided Gram Neg Bacilli
[2020-08-17] MEDS: AMPICILLIN-SULBACTAM 1.5 GM in SODIUM CHLORIDE 0.9% 50 ML IVPB SCH ×4 (03:25→21:54)
[2020-08-17] MEDS: MORPHINE SULFATE 4 MG/ML SYRINGE IV PRN ×3 (03:25→17:37)
[2020-08-17 06:34] LABS: INR 3.2 (<1.2); Prothrombin Time 30.6 sec (9.0-12.0)
[2020-08-17 06:36] LABS: Basophils % (A) 0 %; Eosinophils # (A) 0.1 k/uL (0-0.7); Eosinophils % (A) 1 %; HGB 12.4 gm/dL (11.4-16.0); Hypochromasia Slight; Lymphocytes # (A) 0.9 k/uL (1.0-4.8); Lymphocytes % (A) 10 %; MCH 30.4 pg (25.0-35.0); MCHC 32.5 g/dL (31.0-37.0); MCV 93.6 fL (80.0-100.0); Mean Platelet Volume 6.8; Monocytes # (A) 0.7 k/uL (0-1.0); Monocytes % (A) 7 %; Neutrophils # (A) 7.3 k/uL (1.3-7.7); Neutrophils % (A) 80 %; Platelet Count 271 k/uL (150-450); RBC 4.06 m/uL (3.80-5.40); RDW 15.4 % (11.5-15.5)
[2020-08-17] MEDS: IPRATROPIUM-ALBUTEROL 3 ML NEB INHALATION SCH ×5 (07:54→19:08)
[2020-08-17] MEDS: ONDANSETRON 4 MG/2 ML VIAL IVP PRN ×2 (08:34→17:37)
[2020-08-17] MEDS: PANTOPRAZOLE 40 MG/10 ML VIAL IV SCH (08:35)
[2020-08-17] MEDS: metroNIDAZOLE-NS PMX 500 MG in SALINE 1 100ML.BAG IVPB SCH (08:37)
[2020-08-17 09:58] LABS: African American GFR (CKD) 78.5 (60.0-200.0); Anion Gap 5.3 mmol/L (4.00-12.00); BUN/Creat Ratio 12.5 Ratio (12.00-20.00); Calcium 8.6 mg/dL (8.7-10.3); Carbon Dioxide 29.7 mmol/L (21.6-31.8); Non-African American GFR(CKD) 67.7 (60.0-200.0); Potassium 4.2 mmol/L (3.5-5.5)
[2020-08-17] MEDS: FUROSEMIDE 40 MG TAB PO SCH (10:47)
[2020-08-17] MEDS: DILTIAZEM ORAL 30 MG TAB PO SCH ×2 (10:47→20:32)
[2020-08-17] MEDS: METOPROLOL TARTRATE 50 MG TAB PO SCH (10:47)
[2020-08-17] MEDS: EZETIMIBE 10 MG TAB PO SCH (10:47)
[2020-08-17] MEDS: DEXTROSE 5%-0.9% NACL 1,000 ML IV SCH ×2 (11:18→20:33)
--- NOTE | 2020-08-17 15:50 | P.PN ---
Subjective Progress Note Date: 08/17/20 (Acute diverticulitis, E. coli UTI.) Progress note dictation, date of service 08/17/[address] Li. Patient seen and evaluated [id number]. Patient stated that she will have feeling of bowel movement now, the nursing staff was called to help the patient. Vital sign temperature 98 F oral heart rate 50 respiratory rate 16, blood pressure 105/69. Mean blood pressure 81. Pulse ox 94% on nasal cannula 3 L/m. Patient currently on full liquid diet, will consult dietitian for diverticular disease diet and gradual advance feeding. We'll decrease her medicine metoprolol tartrate to 25 mg twice a day. And decrease the Lasix to 20 mg once a day, and ambulate as tolerated. I was able to locate her last echocardiogram which was done on 05/28/2019 which indicating atrial fibrillation and indicating impaired ventricular systolic function with moderately impaired ejection fraction between 3540 percent with the underlying atrial fibrillation the left ventricular filling pressure could not be estimated. She had the med inferoseptal left ventricular motion is hypokinetic, mid anteroseptal left ventricular wall motion also hypokinetic. Apical lateral left ventricular wall motion is hypokinetic apical inferior left ventricular wall motion is hypokinetic and apical septum left ventricular wall motion is hypokinetic. Right ventricular is [id number] enlarged left atrium severely dilated more than 40 mL per meter square right atrium is moderately enlarged. She has a moderate aortic valve sclerosis no evidence of aortic stenosis moderate to severe mitral regurgitation, severe tricuspid regurgitation, severe pulmonary hypertension, right ventricular systolic pressure measured by Doppler 63.84 mmHg no pulmonary regurgitation no pericardial effusion aortic root size normal and inferior vena cava is dilated with poor inspiratory collapse which consistent with estimated right atrial pressure 20 mmHg read by wildlife rehabilitator Dr. Schuster. Today on examination discussed with her nurse and showed that she has nausea and vomiting this morning and she is not eating or even the full liquid diet and she had diarrhea this afternoon they consulted with Dr. Reddy gastroenterology and he stopped the Flagyl because of these heaves Patient is conscious alert oriented, currently on full liquid diet will advance once we have the dietitian consult we'll decrease IV fluid to 75 mL/h in a.m. Once she started on a diet. Neck was supple no JVD no thyromegaly no lymphadenopathy. Chest she has underlying history of pulmonary hypertension COPD and ex-smoker in the past. Heart atrial fibrillation with irregular heartbeat with the ejection fraction 35-40%. With a history of ischemic heart disease and atrial fibrillation moderate to severe mitral regurgitation and severe tricuspid regurgitation and severe pulmonary hypertension. Abdomen positive bowel sounds 4 quadrant tenderness. Extremities no edema and positive pulses. Neurologically stable no lateralizing sign no confusion. Assessment: #1 acute diverticulitis #2 acute urinary tract infection with E. coli. #3 pulmonary hypertension #4 ischemic cardiomyopathy with ejection fraction 35% on Coumadin anticoagulant. #4 COPD with exacerbation #5 chronic respiratory failure with hypoxemia on chronic oxygen supplement 2-3 L per min [place]. #6 hypotension. With the underlying some ischemic heart disease. Plan: We'll decrease IV fluid to 75. Cc per hour in a.m. #2 consultation with the dietitian for for the diverticular disease. #3 anticoagulation with Coumadin per pharmacy Objective - Vital Signs Vital signs: Vital Signs Temp 98.0 F 08/17/20 12:14 Pulse 50 L 08/17/20 12:14 Resp 16 08/17/20 12:14 BP 105/69 08/17/20 12:14 Pulse Ox 94 L 08/17/20 12:14 Intake & Output 08/16/20 08/17/20 08/17/20 18:59 06:59 18:59 Intake Total 600 1600 Balance 600 1600 Intake: Intake, IV Titration 600 1300 Amount Ampicillin-Sulbactam 1.5 200 gm In Sodium Chloride 0.9 % 50 ml @ 100 mls/hr IVPB Q6H [facility] Rx#:[id number] Dextrose 5%-0.9% NaCl 1, 600 1000 000 ml @ 100 mls/hr IV . Q10H [facility] Rx#:[id number] metroNIDAZOLE-NS PMX 500 100 mg In Saline 1 100ml.bag @ 100 mls/hr IVPB Q8HR [facility] Rx#:[id number] Oral 300 Other: Voiding Method Bedside Commode Bedside Commode Diaper Diaper # Voids 8 4 - Labs CBC & Chem 7: 08/17/20 05:51 08/17/20 05:51 Labs: Abnormal Lab Results - Last 24 Hours (Table) 08/17/20 08/17/20 08/17/20 Range/Units 05:51 05:51 05:51 Lymphocytes # 0.9 L (1.0-4.8) k/uL PT 30.6 H (9.0-12.0) sec INR 3.2 H (<1.2) Glucose 125 H (70-110) mg/dL Calcium 8.6 L (8.7-10.3) mg/dL Microbiology - Last 24 Hours (Table) 08/14/20 13:03 Urine Culture - Final Urine,Voided Escherichia coli 08/14/20 13:03 Blood Culture - Preliminary Blood No Growth after 48 hours 08/14/20 13:03 Blood Culture - Preliminary Blood No Growth after 48 hours
[2020-08-17] MEDS ORDERED: WARFARIN 0.5 MG TAB PO ONE (18:00)
[2020-08-17] MEDS: METOPROLOL TARTRATE 25 MG TAB PO SCH (20:32)
[2020-08-18] MEDS: AMPICILLIN-SULBACTAM 1.5 GM in SODIUM CHLORIDE 0.9% 50 ML IVPB SCH ×4 (03:46→21:09)
[2020-08-18 06:13] LABS: INR 4.5 (<1.2); Prothrombin Time 43.2 sec (9.0-12.0)
[2020-08-18] MEDS: MORPHINE SULFATE 4 MG/ML SYRINGE IV PRN (06:25)
[2020-08-18] MEDS: METOPROLOL TARTRATE 25 MG TAB PO SCH (08:19)
[2020-08-18] MEDS: DILTIAZEM ORAL 30 MG TAB PO SCH ×2 (08:19→21:07)
[2020-08-18] MEDS: EZETIMIBE 10 MG TAB PO SCH (08:19)
[2020-08-18] MEDS: PANTOPRAZOLE 40 MG TABLET PO SCH (08:20)
[2020-08-18] MEDS: IPRATROPIUM-ALBUTEROL 3 ML NEB INHALATION SCH ×4 (08:30→21:16)
[2020-08-18] MEDS ORDERED: FUROSEMIDE 20 MG TAB PO SCH (09:00)
--- NOTE | 2020-08-18 10:33 | P.PN ---
Subjective Progress Note Date: 08/17/20 Principal diagnosis: Diverticulitis, abdominal pain Patient is seen lying in bed today with improvement in abdominal pain, however she did have some nausea and dry heaving. Objective - Vital Signs Vital signs: Vital Signs Temp 97.7 F 08/17/20 03:30 Pulse 91 08/17/20 03:30 Resp 20 08/17/20 03:30 BP 133/76 08/17/20 03:30 Pulse Ox 97 08/17/20 03:30 Intake & Output 08/16/20 08/17/20 08/17/20 18:59 06:59 18:59 Intake Total 600 1600 Balance 600 1600 Intake: Intake, IV Titration 600 1300 Amount Ampicillin-Sulbactam 1.5 200 gm In Sodium Chloride 0.9 % 50 ml @ 100 mls/hr IVPB Q6H [facility] Rx#:[id number] Dextrose 5%-0.9% NaCl 1, 600 1000 000 ml @ 100 mls/hr IV . Q10H [facility] Rx#:[id number] metroNIDAZOLE-NS PMX 500 100 mg In Saline 1 100ml.bag @ 100 mls/hr IVPB Q8HR [facility] Rx#:[id number] Oral 300 Other: Voiding Method Bedside Commode Bedside Commode Diaper Diaper # Voids 8 4 - Exam On physical examination, patient appears comfortable in no apparent distress. HEAD: Normocephalic, atraumatic. EYES: No scleral icterus. No conjunctival injection. MOUTH: No lesions, tongue midline. NECK: Trachea midline, no gross abnormalities. ABDOMEN: Soft, mildly tender to palpation predominantly in the left lower quadrant. Bowel sounds are positive. No organomegaly. No guarding or rigidity. EXTREMITIES: No pedal edema. SKIN: No rashes, no jaundice. NEUROLOGIC: Alert and oriented x3. No focal deficits. - Labs CBC & Chem 7: 08/17/20 05:51 08/17/20 05:51 Labs: Abnormal Lab Results - Last 24 Hours (Table) 08/17/20 08/17/20 08/17/20 Range/Units 05:51 05:51 05:51 Lymphocytes # 0.9 L (1.0-4.8) k/uL PT 30.6 H (9.0-12.0) sec INR 3.2 H (<1.2) Glucose 125 H (70-110) mg/dL Calcium 8.6 L (8.7-10.3) mg/dL Microbiology - Last 24 Hours (Table) 08/14/20 13:03 Urine Culture - Final Urine,Voided Escherichia coli 08/14/20 13:03 Blood Culture - Preliminary Blood No Growth after 48 hours 08/14/20 13:03 Blood Culture - Preliminary Blood No Growth after 48 hours Assessment and Plan (1) Diverticulitis Narrative/Plan: 85-year-old female with multiple medical comorbidities presenting to the hospital due to abdominal pain, nausea vomiting, and diarrhea. Patient has a history of diverticulitis in the past with last colonoscopy over 10 years ago. She denies any signs or symptoms of GI bleeding. Patient was found to have CT findings of the abdomen suggestive of acute uncomplicated diverticulitis. Current Visit: Yes Status: Acute Code(s): K57.92 - DVTRCLI OF INTEST, PART UNSP, W/O PERF OR ABSCESS W/O BLEED SNOMED Code(s): 575087173 (2) Abdominal pain Current Visit: No Status: Acute Code(s): R10.9 - UNSPECIFIED ABDOMINAL PAIN SNOMED Code(s): 56106550 Plan: Supportive care Full liquid diet, advance to low fiber low residual as tolerated Continue broad-spectrum antibiotic therapy, Flagyl discontinued due to nausea continue Unasyn Continue gentle IV fluid hydration Continue pain control Encourage ambulation as tolerated No plans for endoscopic evaluation at this time Consideration is for colonoscopy in 4-6 weeks after resolution of diverticulitis if medically stable at that time in the outpatient setting, patient's daughter believes that prior colonoscopies were aborted secondary to tortuous colon, can consider after barium enema for further evaluation in 4-6 weeks as an alternative Thank you for allowing us to participate in the care of the patient
--- NOTE | 2020-08-18 12:28 | P.PN ---
Subjective Progress Note Date: 08/18/20 Principal diagnosis: Diverticulitis, abdominal pain Patient is seen lying in bed today with less nausea and improved abdominal pain. However she is having some loose stools. Objective - Vital Signs Vital signs: Vital Signs Temp 98.0 F 08/18/20 04:18 Pulse 85 08/18/20 08:18 Resp 16 08/18/20 04:18 BP 104/68 08/18/20 08:18 Pulse Ox 95 08/18/20 08:31 Intake & Output 08/17/20 08/18/20 08/18/20 18:59 06:59 18:59 Intake Total 400 1300 Output Total 200 Balance 200 1300 Intake: Intake, IV Titration 900 Amount Dextrose 5%-0.9% NaCl 1, 900 000 ml @ 75 mls/hr IV . [id number] [facility] Rx#:[id number] Oral 400 400 Output: Emesis 200 Other: Voiding Method Bedside Commode Bedside Commode Bedside Commode Diaper Diaper Diaper # Voids 4 4 # Bowel Movements 2 2 - Exam On physical examination, patient appears comfortable in no apparent distress. HEAD: Normocephalic, atraumatic. EYES: No scleral icterus. No conjunctival injection. MOUTH: No lesions, tongue midline. NECK: Trachea midline, no gross abnormalities. ABDOMEN: Soft, mildly tender to palpation predominantly in the left lower quadrant. Bowel sounds are positive. No organomegaly. No guarding or rigidity. EXTREMITIES: No pedal edema. SKIN: No rashes, no jaundice. NEUROLOGIC: Alert and oriented x3. No focal deficits. - Labs CBC & Chem 7: 08/17/20 05:51 08/17/20 05:51 Labs: Abnormal Lab Results - Last 24 Hours (Table) 08/18/20 Range/Units 05:15 PT 43.2 H (9.0-12.0) sec INR 4.5 H (<1.2) Microbiology - Last 24 Hours (Table) 08/14/20 13:03 Blood Culture - Preliminary Blood No Growth after 72 hours 08/14/20 13:03 Blood Culture - Preliminary Blood No Growth after 72 hours Assessment and Plan (1) Diverticulitis Narrative/Plan: 85-year-old female with multiple medical comorbidities presenting to the hospital due to abdominal pain, nausea vomiting, and diarrhea. Patient has a history of diverticulitis in the past with last colonoscopy over 10 years ago. She denies any signs or symptoms of GI bleeding. Patient was found to have CT findings of the abdomen suggestive of acute uncomplicated diverticulitis. Current Visit: Yes Status: Acute Code(s): K57.92 - DVTRCLI OF INTEST, PART UNSP, W/O PERF OR ABSCESS W/O BLEED SNOMED Code(s): 131878222 (2) Abdominal pain Current Visit: No Status: Acute Code(s): R10.9 - UNSPECIFIED ABDOMINAL PAIN SNOMED Code(s): 99477272 Plan: Supportive care Full liquid diet, advance to low fiber low residual as tolerated Continue broad-spectrum antibiotic therapy, Flagyl discontinued due to nausea continue Unasyn Continue gentle IV fluid hydration Continue pain control Encourage ambulation as tolerated No plans for endoscopic evaluation at this time Consideration is for colonoscopy in 4-6 weeks after resolution of diverticulitis if medically stable at that time in the outpatient setting, patient's daughter b elieves that prior colonoscopies were aborted secondary to tortuous colon, can consider after barium enema for further evaluation in 4-6 weeks as an alternative Thank you for allowing us to participate in the care of the patient
--- NOTE | 2020-08-18 15:29 | P.PN ---
Subjective Progress Note Date: 08/18/20 (Acute diverticulitis, UTI, ischemic cardiomyopathy, history of pulmonary hypertension, hypotension, diarrhea was negative for C. difficile.) Progress note date of service 08/18/[address] Li. Patient seen and evaluated [id number] and discussed with her RN Wicho as well. Patient complaint for diarrhea, C. difficile was negative, corvid-19 negative. 08/17/20 WBC 9, hemoglobin 12.4, and sodium 143 potassium 4.2 chloride 108, with a CO2 29.7 and BUN of 10/creatinine 0.8 with the underlying GFR for non- 67.7 patient on D5 0.9 IV normal saline and she is not diabetic and her blood sugar random 125 because of the IUD. Today her PT and INR is prolonged with the pro-time 43.2 and INR 4.5 Coumadin was not given for the loss 2 days and will continue hold until the level therapeutic monitored by pharmacy. 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 Subsequently her blood pressure gradually improvement to 116/78 and subsequently 128/83 with a 2 L nasal cannula. Patient on inhalation therapy and oxygen 2-3 L/m with the underlying chronic hypoxic respiratory failure, COPD, chronic bronchitis,. Her temperature 98.6 F oral, respiratory rate 18/m with the chronic shortness of breath. As well as underlying history of ischemic heart disease and low ejection fraction. On examination [id number] Conscious alert oriented 3, seen also by Dr. Reddy gastroenterology with the recommendation of is advance diet low fiber. And ambulation. Head was normocephalic and atraumatic she had no denture in the upper jaw and lower jaw 3 incisor, we consulted the dietitian for low fiber diet with the acute diverticulitis diet. Neck was supple no JVD no thyromegaly no lymphadenopathy trachea midline. Chest hyperinflation with increased anteroposterior diameter, stable with the baseline with the underlying minimal respiratory inspiratory expiratory wheezes. Heart irregular heartbeat with a history of ischemic heart disease we'll obtain EKG today with the evidence of atrial fibrillation. Abdomen: Tenderness on the left sigmoid colon still painful with deep palpation and she had loose bowel no nausea no vomiting. Extremities no edema and positive pulses. Neurologically negative Genitourinary she is incontinent. Assessment: #1 clinical improvement. #20 need Foster ambulation #3 gradual advancement of the low fiber diet. #4 adjustment of her medication with the evidence of hypotension symptomatic and changes and the beta jerad and the cardiac exam to accommodate the atrial fibrillation. #5 she had a ischemic heart disease with ischemic cardiomyopathy and low ejection fraction #6 pulmonary hypertension. Plan: #1 advance the diet #2 adjust them metoprolol tartrate to 12.5 mg 3 times a day with the monitoring of the blood pressure #3 diltiazem 50% decrease to be equal to 15 mg twice a day also to avoid hypotension #4 discontinuation of Lasix because of the no edema of the lower extremities and evidence of hypotension and currently she is on gentle IV fluid for mild dehydration with the presence of diarrhea and the diverticulitis. #5 continue the nebulization bronchodilator. And antibiotic for the diverticular colitis #6 Dr. Yoder gastroenterology stopped Flagyl because of her nausea and vomiting #7 DC morphine IV and replace it with hydrocodone 5/325 when necessary for abdominal pain. And acetaminophen on a when necessary basis Objective - Vital Signs Vital signs: Vital Signs Temp 98.6 F 08/18/20 12:58 Pulse 100 08/18/20 12:58 Resp 18 08/18/20 12:58 BP 128/83 08/18/20 12:58 Pulse Ox 96 08/18/20 12:58 Intake & Output 08/17/20 08/18/20 08/18/20 18:59 06:59 18:59 Intake Total 400 1300 Output Total 200 Balance 200 1300 Intake: Intake, IV Titration 900 Amount Dextrose 5%-0.9% NaCl 1, 900 000 ml @ 75 mls/hr IV . [id number] [facility] Rx#:[id number] Oral 400 400 Output: Emesis 200 Other: Voiding Method Bedside Commode Bedside Commode Bedside Commode Diaper Diaper Diaper # Voids 4 4 # Bowel Movements 2 2 - Labs CBC & Chem 7: 08/17/20 05:51 08/17/20 05:51 Labs: Abnormal Lab Results - Last 24 Hours (Table) 08/18/20 Range/Units 05:15 PT 43.2 H (9.0-12.0) sec INR 4.5 H (<1.2) Microbiology - Last 24 Hours (Table) 08/14/20 13:03 Blood Culture - Preliminary Blood No Growth after 72 hours 08/14/20 13:03 Blood Culture - Preliminary Blood No Growth after 72 hours
[2020-08-18] MEDS ORDERED: METOPROLOL TARTRATE 25 MG TAB PO SCH (16:00)
[2020-08-18] MEDS: METOPROLOL TARTRATE 12.5 MG TAB PO SCH ×2 (16:19→21:08)
[2020-08-18] MEDS: HYDROcodone/APAP 5-325MG 1 EACH TAB PO PRN ×2 (16:19→22:43)
[2020-08-18] MEDS: DEXTROSE 5%-0.9% NACL 1,000 ML IV SCH ×2 (16:21→21:09)
[2020-08-18] MEDS ORDERED: WARFARIN 0.5 MG TAB PO ONE (18:00)
[2020-08-19] MEDS: AMPICILLIN-SULBACTAM 1.5 GM in SODIUM CHLORIDE 0.9% 50 ML IVPB SCH ×4 (03:55→21:05)
[2020-08-19 06:49] LABS: INR 4.2 (<1.2); Prothrombin Time 40.1 sec (9.0-12.0)
[2020-08-19] MEDS: IPRATROPIUM-ALBUTEROL 3 ML NEB INHALATION SCH ×4 (07:27→20:28)
[2020-08-19] MEDS: PANTOPRAZOLE 40 MG TABLET PO SCH (08:55)
[2020-08-19] MEDS: EZETIMIBE 10 MG TAB PO SCH (08:55)
[2020-08-19] MEDS: DILTIAZEM ORAL 30 MG TAB PO SCH ×2 (08:55→21:04)
[2020-08-19] MEDS: METOPROLOL TARTRATE 12.5 MG TAB PO SCH ×3 (08:56→21:05)
[2020-08-19] MEDS: HYDROcodone/APAP 5-325MG 1 EACH TAB PO PRN (11:40)
--- NOTE | 2020-08-19 12:12 | P.PN ---
Subjective Progress Note Date: 08/19/20 Principal diagnosis: Diverticulitis The patient is seen and examined sitting up in the recliner. She states her abdominal pain has decreased some. Denies any nausea or vomiting. She states she had a large soft brown stool this morning. She denies any signs or symptoms GI bleed. Objective - Vital Signs Vital signs: Vital Signs Temp 98.1 F 08/19/20 11:20 Pulse 86 08/19/20 11:20 Resp 20 08/19/20 11:20 BP 132/83 08/19/20 11:20 Pulse Ox 97 08/19/20 11:20 Intake & Output 08/18/20 08/19/20 08/19/20 18:59 06:59 18:59 Intake Total 1300 1250 Output Total 5 1 Balance 1295 1250 -1 Intake: Intake, IV Titration 700 650 Amount Ampicillin-Sulbactam 1.5 100 50 gm In Sodium Chloride 0.9 % 50 ml @ 100 mls/hr IVPB Q6H [facility] Rx#:[id number] Dextrose 5%-0.9% NaCl 1, 600 600 000 ml @ 50 mls/hr IV . Q20H [facility] Rx#:[id number] Oral 600 600 Output: Urine 5 1 Other: Voiding Method Bedside Commode Bedside Commode Bedside Commode Diaper Diaper Diaper # Voids 4 # Bowel Movements 4 3 - Exam General appearance: The patient is alert, oriented, appears in no acute distress. HET: Head is normocephalic and atraumatic. Conjunctiva pink. Sclera anicteric. Neck: Supple without lymphadenopathy. Abdomen: Soft, nontender, nondistended with bowel sounds. No guarding or rigidity. Extremities: Normal skin color and turgor. No pedal edema Skin: No rashes, no jaundice Neurological: No focal deficits. Alert and oriented 3. - Labs CBC & Chem 7: 08/17/20 05:51 08/17/20 05:51 Labs: Abnormal Lab Results - Last 24 Hours (Table) 08/19/20 Range/Units 05:26 PT 40.1 H (9.0-12.0) sec INR 4.2 H (<1.2) Microbiology - Last 24 Hours (Table) 08/14/20 13:03 Blood Culture - Preliminary Blood No Growth after 96 hours 05/12/21 13:03 Blood Culture - Preliminary Blood No Growth after 96 hours Assessment and Plan (1) Diverticulitis Narrative/Plan: 85-year-old female with multiple medical comorbidities presenting to the hospital due to abdominal pain, nausea vomiting, and diarrhea. Patient has a history of diverticulitis in the past with last colonoscopy over 10 years ago. She denies any signs or symptoms of GI bleeding. Patient was found to have CT findings of the abdomen suggestive of acute uncomplicated diverticulitis. Current Visit: Yes Status: Acute Code(s): K57.92 - DVTRCLI OF INTEST, PART UNSP, W/O PERF OR ABSCESS W/O BLEED SNOMED Code(s): 432727990 (2) Abdominal pain Current Visit: No Status: Acute Code(s): R10.9 - UNSPECIFIED ABDOMINAL PAIN SNOMED Code(s): 70587443 Plan: Supportive care Low fiber diet as tolerated Continue broad-spectrum antibiotic therapy Continue pain control as needed Encourage ambulation as tolerated No plans for endoscopic evaluation at this time Consideration is for colonoscopy in 4-6 weeks after resolution of diverticulitis if medically stable at that time in the outpatient setting Thank you for allowing us to participate in the care of the patient, she may be dischharged home from a gastroenterology standpoint Dr. Reddy I agree with the dictator's note, documented as a scribe by Verito MUHAMMAD.
--- NOTE | 2020-08-19 13:17 | P.PN ---
Subjective Progress Note Date: 08/19/20 (Prolonged PT and INR 4.2) Progress note date of service 08/19/2020. Dictation by Dr. iL Patient seen and evaluated [id number]. Laboratory: Pro time and INR elevated with the INR 4.2 and patient easy to bleed. She is feeling much better today, still has abdominal pain the maximum in the left lower quadrant. On exam: Temperature 98.1 F oral heart rate 86 beats per minute respiratory rate 20/m16/m she had coughing and shortness of breath but returned to the baseline Blood pressure 132/83 with no hypotension. Her oxygen 97% on 3 L. She able to start on low fiber diet today, she had 2 bowel movement. Still loose. HEENT head was normocephalic and atraumatic pupil was equal reactive, conjunctiva was pink sclera was nonicteric. Oropharynx E had edentulous upper jaw use dentures at home lower jaw she had 4 incisor. Neck was supple no JVD no thyromegaly no lymphadenopathy trachea midline. The chest she has a chronic rhonchi with underlying COPD and chronic bronchitis and asthma and she has also chronic hypoxic respiratory failure she is on oxygen 3 L at home and in the hospital. And she is ALSO on the nebulizer. Heart irregular irregularities with atrial fibrillation on anticoagulant Couma din, ejection fraction 35-40% with ischemic heart disease and ischemic cardiomyopathy. Abdomen positive bowel sounds positive tenderness on the sigmoid area however improved Extremities no edema and positive pulses. Neurological stable no lateralizing sign and physical therapy was ordered. Assessment and plan: #1 acute diverticulitis #2 UTI #3 currently cardiomyopathy number for COPD #5 chronic hypoxic respiratory failure on permanent oxygen 3 L. Her blood pressure improved with 132/83 tolerated the low fiber fluid Plan no Coumadin today hopefully tomorrow we able to discharge the patient home. Objective - Vital Signs Vital signs: Vital Signs Temp 98.1 F 08/19/20 11:20 Pulse 90 08/19/20 11:59 Resp 16 08/19/20 11:59 BP 132/83 08/19/20 11:20 Pulse Ox 97 08/19/20 11:20 Intake & Output 08/18/20 08/19/20 08/19/20 18:59 06:59 18:59 Intake Total 1300 1250 Output Total 5 1 Balance 1295 1250 -1 Intake: Intake, IV Titration 700 650 Amount Ampicillin-Sulbactam 1.5 100 50 gm In Sodium Chloride 0.9 % 50 ml @ 100 mls/hr IVPB Q6H [facility] Rx#:[id number] Dextrose 5%-0.9% NaCl 1, 600 600 000 ml @ 50 mls/hr IV . Q20H [facility] Rx#:[id number] Oral 600 600 Output: Urine 5 1 Other: Voiding Method Bedside Commode Bedside Commode Bedside Commode Diaper Diaper Diaper # Voids 4 # Bowel Movements 4 3 - Labs CBC & Chem 7: 08/17/20 05:51 08/17/20 05:51 Labs: Abnormal Lab Results - Last 24 Hours (Table) 08/19/20 Range/Units 05:26 PT 40.1 H (9.0-12.0) sec INR 4.2 H (<1.2) Microbiology - Last 24 Hours (Table) 08/14/20 13:03 Blood Culture - Preliminary Blood No Growth after 96 hours 08/14/20 13:03 Blood Culture - Preliminary Blood No Growth after 96 hours
--- NOTE | 2020-08-19 14:54 | CDI ---
Documentation Clarification Form Date: 08/19/2020 02:44:54 PM From: Arianne Fuentes RN, CCDS Admit Date: 08/14/2020 02:56:00 PM Patient Name: Sandie Virk Visit Number: [id number] ATTENTION: The Clinical Documentation Specialists (CDI) and [facility] Coding Staff appreciate your assistance in clarifying documentation. Please respond to the clarification below the line at the bottom and electronically sign. The CDI & [facility] Coding staff will review the response and follow-up if needed. Please note: Queries are made part of the Legal Health Record. If you have any questions, please contact the author of this message via ITS. Dr. Henrique Barber Your patient has the documented diagnosis of unspecified CHF in the 08/14 H&P and 08/15 GI consult. Additional information regarding the type & acuity of CHF is requested. History/Risk Factors: Paroxysmal Atrial Fib, Heart Failure, COPD, CVA/TIA, HLD, HTN, CKD stage 3, cardiomyopathy Clinical Indicators: 08/23/2020 1253 VS/Pulse OX: Temp 99.2, HR 91, RR 18, B/P 142/89, spo2 94% 3L NC BNP: not checked 05/28/2019 Echocardiogram Results: EF 35-40%, severe pulmonary HTN, severe tricuspid regurg, moderate concentric LVH 08/14 Chest X Ray: "There is no heart failure nor confluent pneumonic infiltrate." Treatment: 08/15-08/17 Lasix 40 mg Po QD 08/18 Lasix 20 mg Po QD 08/14-08/17 Lopressor 50 mg PO BID 08/17-08/18 Lopressor 25 mg PO BID In your professional opinion, can you please clarify the [acuity and type] of CHF if known? [ ] Chronic Systolic Heart Failure (reduced EF) [ x ] Chronic Systolic & Diastolic Heart Failure [ ] Other, please specify [ ] Unable to determine (Template Last Revised: May 2020) MTDD
[2020-08-19] MEDS: DEXTROSE 5%-0.9% NACL 1,000 ML IV SCH (16:22)
[2020-08-19] MEDS ORDERED: WARFARIN 0.5 MG TAB PO ONE (18:00)
[2020-08-20] MEDS: HYDROcodone/APAP 5-325MG 1 EACH TAB PO PRN (01:05)
[2020-08-20] MEDS: AMPICILLIN-SULBACTAM 1.5 GM in SODIUM CHLORIDE 0.9% 50 ML IVPB SCH ×2 (03:30→09:06)
[2020-08-20 03:42] VITALS: TEMP 97.8
[2020-08-20 06:50] LABS: INR 3.3 (<1.2); Prothrombin Time 31.9 sec (9.0-12.0)
[2020-08-20] MEDS: IPRATROPIUM-ALBUTEROL 3 ML NEB INHALATION SCH ×2 (07:19→11:04)
[2020-08-20] MEDS: METOPROLOL TARTRATE 12.5 MG TAB PO SCH (08:21)
[2020-08-20] MEDS: PANTOPRAZOLE 40 MG TABLET PO SCH (08:21)
[2020-08-20] MEDS: DILTIAZEM ORAL 30 MG TAB PO SCH (08:21)
[2020-08-20] MEDS: EZETIMIBE 10 MG TAB PO SCH (08:21)
--- NOTE | 2020-08-20 10:22 | P.PN ---
Subjective Progress Note Date: 08/20/20 Principal diagnosis: Diverticulitis Patient is seen and examined sitting up in bed. She states she had some mild discomfort in the left lower quadrant after eating breakfast this morning. Otherwise she is being followed for elevated PT and INR. She denies any nausea, vomiting, and he stools, or diarrhea this morning. She states she has had no fevers or chills. Objective - Vital Signs Vital signs: Vital Signs Temp 97.8 F 08/20/20 03:36 Pulse 90 08/20/20 07:30 Resp 18 08/20/20 07:30 BP 110/66 08/20/20 03:36 Pulse Ox 94 L 08/20/20 07:20 Intake & Output 08/19/20 08/20/20 08/20/20 18:59 06:59 18:59 Intake Total 1250 Output Total 1 Balance -1 1250 Intake: Intake, IV Titration 650 Amount Ampicillin-Sulbactam 1.5 50 gm In Sodium Chloride 0.9 % 50 ml @ 100 mls/hr IVPB Q6H [facility] Rx#:[id number] Dextrose 5%-0.9% NaCl 1, 600 000 ml @ 50 mls/hr IV . Q20H [facility] Rx#:[id number] Oral 600 Output: Urine 1 Other: Voiding Method Bedside Commode Bedside Commode Diaper Diaper # Voids 2 # Bowel Movements 1 - Exam General appearance: The patient is alert, oriented, appears in no acute distress. HET: Head is normocephalic and atraumatic. Conjunctiva pink. Sclera anicteric. Neck: Supple without lymphadenopathy. Abdomen: Soft, mild left lower quadrant tenderness, nondistended with bowel sounds. No guarding or rigidity. Extremities: Normal skin color and turgor. No pedal edema Skin: No rashes, no jaundice Neurological: No focal deficits. Alert and oriented 3. - Labs CBC & Chem 7: 08/17/20 05:51 08/17/20 05:51 Labs: Abnormal Lab Results - Last 24 Hours (Table) 08/20/20 Range/Units 06:22 PT 31.9 H (9.0-12.0) sec INR 3.3 H (<1.2) Microbiology - Last 24 Hours (Table) 08/14/20 13:03 Blood Culture - Preliminary Blood No Growth after 120 hours 08/14/20 13:03 Blood Culture - Preliminary Blood No Growth after 120 hours Assessment and Plan (1) Diverticulitis Narrative/Plan: 85-year-old female with multiple medical comorbidities presenting to the hospital due to abdominal pain, nausea vomiting, and diarrhea. Patient has a history of diverticulitis in the past with last colonoscopy over 10 years ago. She denies any signs or symptoms of GI bleeding. Patient was found to have CT findings of the abdomen suggestive of acute uncomplicated diverticulitis. Current Visit: Yes Status: Acute Code(s): K57.92 - DVTRCLI OF INTEST, PART UNSP, W/O PERF OR ABSCESS W/O BLEED SNOMED Code(s): 945047521 (2) Abdominal pain Current Visit: No Status: Acute Code(s): R10.9 - UNSPECIFIED ABDOMINAL PAIN SNOMED Code(s): 70380959 Plan: Supportive care Low fiber diet as tolerated Continue broad-spectrum antibiotic therapy Continue pain control as needed Encourage ambulation as tolerated No plans for endoscopic evaluation at this time Consideration is for colonoscopy in 4-6 weeks after resolution of diverticulitis if medically stable at that time in the outpatient setting She may be dischharged home from a gastroenterology standpoint Thank you for allowing us to participate in the care of the patient, We will sign off at this time. Dr. Reddy I agree with the dictator's note, documented as a scribe by Verito Greco.
[2020-08-20 12:02] VITALS: BP 148/84; PULSE 90; RESP 20
--- NOTE | 2020-08-20 12:48 | P.DS ---
Providers Date of admission: 08/14/20 14:56 Expected date of discharge: 08/20/20 Attending physician: Henrique Barber Consults: 08/14/20 16:16 Consult Physician Urgent Consulting Provider: Yan Reddy Consult Reason/Comments: Acute diverticulitis Do you want consulting provider notified?: Yes Primary care physician: Henrique Barber Dictation discharge summary date of service 08/20/[address] Guillermo Howard [facility]. Final diagnosis. #1 acute diverticulitis symptomatic with the presence of the computed tomography scan of the abdomen as well as leukocytosis, and abdominal severe tenderness and no spinal. #2 urinary tract infection with E. coli. #3 underlying chronic congestive heart failure and systolic and diastolic impairment with the ischemic heart disease. #4 COPD, asthma, chronic bronchitis. #5 chronic hypoxic respiratory failure on 2 L of oxygen permanently. #6 impaired ejection fraction with the underlying coronary artery disease #7 hypertension with hypertensive heart disease. #8 hypotension has been recovered, associated with mild to moderate dehydration with the acute diverticulitis. #9 hyperlipidemia. #10 chronic atrial fibrillation on anticoagulant with the Coumadin currently has been off Coumadin for 3 days due to extended PT and INR adjusted by the pharmacy currently on discharge 3.3 and patient will hold Coumadin today and subsequently start tomorrow at p.m. 8 PM. And follow-in the office PT and INR this week. ER presentation Patient complained of fever and the lower abdominal discomfort not feeling well lower abdominal pressure and pain with no chest pain with white count 15.6 and the neutrophils 13.4. And the renal function EGFR was 51 on admission him a urine indicate WBC 20 and later on culture indicate E. coli. Hospital course: Patient admitted to the hospital on the fifth floor room 519, Consultation with the gastroenterology obtained O followed the patient and he recommended in 4 weeks he may do that a.m. and edema and followed by endoscopy colonoscopy. With the underlying acute diverticulitis Patient has nausea and vomiting and they thought that could be from Flagyl and Dr. Bolton discontinue Flagyl and continue with the Unasyn as it [place] anaerobic and angioneurotic. Her underlying COPD treated as well with bronchodilator and nebulizer and oxygen and inhalation therapy. Physical therapy also was called for consultation. With the generalized weakness. Patient gradually improved. Her white count normalized and able to tolerate low fiber diet and able to ambulate. On discharge: Patient is conscious alert oriented 3 ambulatory still have mild loose bowel with decreased frequency. The head was normocephalic and atraumatic pupil was equal reactive, conjunctivae bowel was pink, sclera nonicteric. Oropharynx she has no dentures in upper jaw and nephew incisor in the lower jaw. Tolerating the low fiber diet without nausea or vomiting Neck was supple no JVD no thyromegaly no lymphadenopathy trachea midline. The chest was increased anteroposterior diameter and she had a chronic history of COPD and rhonchi with chronic bronchitis and able to [place] to and able to return to the normal basis for her chronic lung illness as well. The heart was irregular irregularity disease with atrial fibrillation and currently on the Coumadin and patient her INR 3.3 which is satisfactory to be discharged with the stop the Coumadin today and tomorrow to be starting was 1 mg at 8 PM daily until seen in the office and repeat PT and INR. Abdomen soft still have vague discomfort however much improved. Extremities no edema and positive pulses bilaterally and able to ambulate Neurologically stable no lateralizing sign she had generalized weakness. Assessment and plan: Patient progressing very well and stable for discharge home to be followed by the visiting nurse, as well as to follow the gastroenterology for future investigation and colonoscopy and barium enema. Patient will be on Augmentin 500/125 twice a day for 7 days. Her medication has been adjusted because of the hypotension and currently she is on metoprolol 12.5 mg 3 times a day as well as she is on the standard 30 mg twice a day as well as Lasix 20 mg once a day To be assessed in the office and adjusted medication. Plan - Discharge Summary Discharge Rx Participant: No New Discharge Prescriptions: New Amoxic-Pot Clav 500-125 mg [Augmentin 500-125 mg] 1 each PO BID #14 tab Metoprolol Tartrate [Lopressor] 12.5 mg PO TID #90 tab Pantoprazole [Protonix] 40 mg PO AC-BRKFST tablet. Ipratropium-Albuterol Nebulize [Duoneb 0.5 mg-3 mg/3 ml Soln] 3 ml INHALATION RT-QID ml Continue allopurinoL [Zyloprim] 100 mg PO DAILY dilTIAZem HCL [Diltiazem HCl] 30 mg PO BID Ezetimibe/Simvastatin [Vytorin 10-10 mg] 1 tab PO DAILY Tolterodine Tartrate [Detrol LA] 2 mg PO DAILY Warfarin [Coumadin] 1 mg PO HS Changed Furosemide [Lasix] 20 mg PO DAILY #0 Discontinued Metoprolol Tartrate [Lopressor] 50 mg PO BID tab Discharge Medication List allopurinoL [Zyloprim] 100 mg PO DAILY 05/27/19 [History] Ezetimibe/Simvastatin [Vytorin 10-10 mg] 1 tab PO DAILY 09/10/19 [History] dilTIAZem HCL [Diltiazem HCl] 30 mg PO BID 09/10/19 [History] Tolterodine Tartrate [Detrol LA] 2 mg PO DAILY 08/14/20 [History] Warfarin [Coumadin] 1 mg PO HS 08/14/20 [History] Amoxic-Pot Clav 500-125 mg [Augmentin 500-125 mg] 1 each PO BID #14 tab 08/20/20 [Rx] Furosemide [Lasix] 20 mg PO DAILY #0 08/20/20 [Rx] Ipratropium-Albuterol Nebulize [Duoneb 0.5 mg-3 mg/3 ml Soln] 3 ml INHALATION RT-QID ml 08/20/20 [Rx] Metoprolol Tartrate [Lopressor] 12.5 mg PO TID #90 tab 08/20/20 [Rx] Pantoprazole [Protonix] 40 mg PO AC-BRKFST tablet. 08/20/20 [Rx] Follow up Appointment(s)/Referral(s): Henrique Barber MD [Primary Care Provider] - 3 Days Yan Reddy MD [STAFF PHYSICIAN] - 1 Week [facility], [NON-STAFF] - 1-2 Days Activity/Diet/Wound Care/Special Instructions: Gradual activity Low fiber diet Do not take Coumadin today start tomorrow 1 mg once a day at 8 PM. Discharge Disposition: HOME WITH HOME HEALTH SERVICES
[2020-08-20] MEDS: DEXTROSE 5%-0.9% NACL 1,000 ML IV SCH (15:01)
[2020-08-20] MEDS ORDERED: WARFARIN 0.5 MG TAB PO ONE (18:00)
[2020-08-20] MEDS ORDERED: AMOXIC-POT CLAV 500-125 MG 1 EACH TAB PO SCH (21:00)
== END 2020-08-20 15:08 | disposition home health service (06) | DRG 392 ==
LOC: EC 12:51 → 5NMEDONC 14:56
PROVIDERS: ADMIT Internal Medicine; ATTEND Internal Medicine
DX: K57.92 Diverticulitis of intestine, part unspecified, without perforation or abscess without bleeding (principal); J96.11 Chronic respiratory failure with hypoxia; N39.0 Urinary tract infection, site not specified; J44.1 Chronic obstructive pulmonary disease with (acute) exacerbation; I13.0 Hypertensive heart and chronic kidney disease with heart failure and stage 1 through stage 4 chronic kidney disease, or unspecified chronic kidney disease; I50.42 Chronic combined systolic (congestive) and diastolic (congestive) heart failure; D68.59 Other primary thrombophilia; I48.20 Chronic atrial fibrillation, unspecified; M19.90 Unspecified osteoarthritis, unspecified site; N18.30 Chronic kidney disease, stage 3 unspecified; R32 Unspecified urinary incontinence; Z87.891 Personal history of nicotine dependence; B96.20 Unspecified Escherichia coli [E. coli] as the cause of diseases classified elsewhere; E78.5 Hyperlipidemia, unspecified; I08.3 Combined rheumatic disorders of mitral, aortic and tricuspid valves; I25.10 Atherosclerotic heart disease of native coronary artery without angina pectoris; I25.5 Ischemic cardiomyopathy; I27.20 Pulmonary hypertension, unspecified; I48.0 Paroxysmal atrial fibrillation; J84.10 Pulmonary fibrosis, unspecified; Z79.01 Long term (current) use of anticoagulants; Z79.82 Long term (current) use of aspirin; Z79.899 Other long term (current) drug therapy; Z82.49 Family history of ischemic heart disease and other diseases of the circulatory system; Z86.73 Personal history of transient ischemic attack (TIA), and cerebral infarction without residual deficits; Z90.710 Acquired absence of both cervix and uterus; Z99.81 Dependence on supplemental oxygen; Z98.42 Cataract extraction status, left eye; Z98.41 Cataract extraction status, right eye; Z96.1 Presence of intraocular lens; Z90.49 Acquired absence of other specified parts of digestive tract; Z90.89 Acquired absence of other organs; Z87.01 Personal history of pneumonia (recurrent)
CPT/HCPCS: 36415; 71045; 74176; 80048; 80053; 81001; 83605; 85025; 85027; 85610; 87040; 87077; 87086; 87186; 87324; 87635; 93005; 94640; 94760; 96365; 96375; 99285

== ENCOUNTER → 2020-09-09 | Outpatient (CLI) | payer MEDICARE ==
[2020-09-09 16:05] LABS: Basophils # (A) 0.04 X 10*3/uL (0.00-0.10); Basophils % (A) 0.4 %; Eosinophils # (A) 0.11 X 10*3/uL (0.04-0.35); Eosinophils % (A) 1.1 %; HCT 48.1 % (37.2-46.3); HGB 14.3 g/dL (12.0-15.0); Lymphocytes # (A) 1.74 X 10*3/uL (0.90-5.00); Lymphocytes % (A) 17.9 %; MCH 28.6 pg (27.0-32.0); MCHC 29.7 g/dL (32.0-37.0); MCV 96.2 fL (80.0-97.0); Mean Platelet Volume 10.3 fL (9.5-12.2); Monocytes # (A) 1.06 X 10*3/uL (0.20-1.00); Monocytes % (A) 10.9 %; Neutrophils # (A) 6.71 X 10*3/uL (1.80-7.70); Neutrophils % (A) 69.2 %; Platelet Count 434 X 10*3/uL (140-440); RDW 16.7 % (11.5-14.5); WBC 9.71 X 10*3/uL (4.50-10.00)
[2020-09-09 16:32] LABS: INR 1.14 (0.90-1.11); Prothrombin Time 12.3 sec (9.9-11.9)
[2020-09-09 18:43] LABS: African American GFR (CKD) 59.9 (60.0-200.0); Anion Gap 8.2 mmol/L (4.00-12.00); Calcium 10.2 mg/dL (8.7-10.3); Carbon Dioxide 24.8 mmol/L (21.6-31.8); Non-African American GFR(CKD) 51.7 (60.0-200.0); Potassium 4.7 mmol/L (3.5-5.5)
== END | disposition home or self-care (01) ==
LOC: LABWHC1 08:04
PROVIDERS: ATTEND Internal Medicine
DX: I48.91 Unspecified atrial fibrillation (principal); Z79.01 Long term (current) use of anticoagulants
CPT/HCPCS: 36415; 80048; 85025; 85610; 87086

== ENCOUNTER → 2020-09-16 | Outpatient (CLI) | payer MEDICARE ==
--- NOTE | 2020-09-18 14:11 | MM ---
Reason for exam: screening (asymptomatic). Last mammogram was performed 2 years and 1 month ago. History: Patient is postmenopausal. Family history of breast cancer in sister at age 80 and breast cancer in mother at age 70. Benign excisional biopsy of the right breast, August 22, 1997. Excisional biopsy of the left breast. Physical Findings: A clinical breast exam by your physician is recommended on an annual basis and results should be correlated with mammographic findings. MG 3D Screening Mammo W/Cad Bilateral CC and MLO view(s) were taken. Prior study comparison: August 12, 2018, bilateral MG 3d screening mammo w/cad. October 18, 2013, bilateral MG screening mammo w CAD. The breast tissue is heterogeneously dense. This may lower the sensitivity of mammography. There is a new indeterminate grouping of calcifications right upper outer quadrant anterior depth and diagnostic mammogram is recommended. Also tech repeat bilateral MLO view due to lack of muscle, see note from tech. ASSESSMENT: Incomplete: need additional imaging evaluation, BI-RAD 0 RECOMMENDATION: Special view mammogram of both breasts. If lesion persists on supplemental views, image directed ultrasound is recommended. [facility] will attempt to contact patient to return for supplemental views and ultrasound if indicated.
== END | disposition home or self-care (01) ==
LOC: RADMAMWWP 13:09
PROVIDERS: ATTEND Internal Medicine
DX: Z12.31 Encounter for screening mammogram for malignant neoplasm of breast (principal); Z78.0 Asymptomatic menopausal state; Z80.3 Family history of malignant neoplasm of breast
CPT/HCPCS: 77063; 77067

== ENCOUNTER → 2020-09-24 | Outpatient (CLI) | payer MEDICARE ==
--- NOTE | 2020-09-24 14:09 | MM ---
Reason for exam: additional evaluation requested from abnormal screening. Last mammogram was performed less than 1 month ago. History: Patient is postmenopausal. Family history of breast cancer in sister at age 80 and breast cancer in mother at age 70. Benign excisional biopsy of the right breast, August 22, 1997. Excisional biopsy of the left breast. Physical Findings: Nurse did not find any significant physical abnormalities on exam. MG 3D Work Up W/Cad RT CC and MLO view(s) were taken of the right breast. Prior study comparison: September 16, 2020, bilateral MG 3d screening mammo w/cad. August 12, 2018, bilateral MG 3d screening mammo w/cad. There are scattered fibroglandular densities. There are two grouping of calcifications in the right retroareolar region. Patient had marked difficulty with magnification views and could not tolerate stereotactic core biopsy. 6 month follow up diagnostic recommended. Patient also reporting left nipple discharge but patient is having marked difficulty continuing with exam and clinical follow up is recommended. Additional imaging can be obtained if clinically warranted when patient is able. These results were verbally communicated with the patient and result sheet given to the patient on 09/24/20. ASSESSMENT: Probably benign, BI-RAD 3 RECOMMENDATION: Follow-up diagnostic mammogram of the right breast in 6 months.
== END | disposition home or self-care (01) ==
LOC: RADMAMWWP 12:31
PROVIDERS: ATTEND Internal Medicine
DX: R92.8 Other abnormal and inconclusive findings on diagnostic imaging of breast (principal); Z80.3 Family history of malignant neoplasm of breast
CPT/HCPCS: 77065; G0279; 77061

== ENCOUNTER → 2020-12-26 | Day surgery (SDC) | payer MEDICARE ==
[2020-12-26 08:15] LABS: INR 1.1 (<1.2); Partial Thromboplastin Time 25.3 sec (22.0-30.0); Prothrombin Time 11.3 sec (9.0-12.0)
[2020-12-26 09:23] VITALS: RESP 16
[2020-12-26 09:42] VITALS: BP 129/69; PULSE 70; TEMP 98.1
--- NOTE | 2020-12-26 10:23 | P.PCN ---
Date of Procedure: 12/26/20 Preoperative Diagnosis: 2 new groupings of microcalcifications in the right breast retroareolar region which are somewhat suspicious Postoperative Diagnosis: Same Procedure(s) Performed: Stereotactic core biopsy 2 areas of concern in the right breast Anesthesia: local Surgeon: Karin Avendaño Pathology: other (Breast tissue:Anterior lesion which has secure-jose m Top-Hat clip microcalcifications noted; Posterior lesion no calcifications in specimen marked with a try jose m) Condition: stable Disposition: same day Indications for Procedure: 2 areas of microcalcification right breast which are new and somewhat suspicious and deep retroareolar region Operative Findings: Anterior lesion with microcalcifications removed Posterior lesion no calcifications in specimen Description of Procedure: Sandie is an 85-year-old white female who on a routine mammogram was noted to have 2 new areas of calcification in the right retroareolar region. Her mammogram was reviewed with radiology and it was felt that the lesions were suspicious however there was some concern that the patient would be able to tolerate a stereotactic core biopsy. Additionally the patient has multiple comorbidities and watchful waiting was considered. However when I had discussion with the patient and the person accompanying her she was very anxious about knowing that the calcifications were presented and wished to attempt a stereo biopsy. Therefore risk and benefits of the procedure including bleeding, infection, reaction to the anesthetic were discussed with the patient and she wished to proceed. Additionally it was discussed that if we could mass identify the spots that we will follow these conservatively. Additionally of these showed any cancer or suspicious lesions that may be recommended that they be removed. The patient was brought to the stereotactic core biopsy wound. She was positioned prone on the lower back table. A fitness worker film was obtained. A CC from above approach was utilized. Both areas of calcification were identified. Both areas were targeted. The anterior lesion was approached initially. The breast was prepped using Betadine. 14-1/2 mL of 1% lidocaine were used to anesthetize the area of concern. A 9-gauge vacuum-assisted core rotating bisecting needle was driven to the correct lesion. Prefire film was obtained. The needle was noted to be in the correct location. The needle was fired. Post fire film was obtained. The needle was again noted to be in the correct location. 14 core samples were obtained. Radiograph the specimen revealed calcifications in the specimen. A secure marked Top-Hat clip was placed. The posterior lesion was then approached. A previously been targeted needle was driven to the correct coordinates. The breast was prepped using Betadine. 14 and half cc of 1% lidocaine were used to anesthetize the area of concern. The needle was driven to the correct target. Prefire film was obtained. This was noted to be in the correct location and the needle was fired. Post fire film w as obtained and noted to be in the correct location. 9-gauge vacuum-assisted core rotating biopsy needle was utilized. The patient stated she had increased discomfort and an additional 5 mL of lidocaine were injected. 6 core samples were obtained. The patient then stated she again had discomfort and wished to discontinue the procedure. At that point radiograph of the specimen was obtained it did not reveal calcifications. The patient was aware of this and again wished to discontinue the procedure. Therefore a try jose m clip was placed. In the procedure was terminated. Specimens will be sent to pathology. The patient will follow-up with Dr. Abbott next week. Impression: Adequate sampling of the anterior specimen No calcifications noted and posterior specimen although the clip appears to be in the vicinity of the lesion Cc: Dr. Barber
--- NOTE | 2020-12-31 09:53 | MM ---
MG Stereo VAD BX RT Radiologist: Roger Sanders M.D. Radiologis Surgeon: Oneida Avendaño M.D. Date of Procedure: 12/26/20 Preoperative Diagnosis: 2 new groupings of microcalcifications in the right breast retroareolar region which are somewhat suspicious Postoperative Diagnosis: Same Procedure(s) Performed: Stereotactic core biopsy 2 areas of concern in the right breast Anesthesia: local Surgeon: Karin Avendaño Pathology: other (Breast tissue:Anterior lesion which has secure-jose m Top-Hat clip microcalcifications noted; Posterior lesion no calcifications in specimen marked with a try jose m) Condition: stable Disposition: same day Indications for Procedure: 2 areas of microcalcification right breast which are new and somewhat suspicious and deep retroareolar region Operative Findings: Anterior lesion with microcalcifications removed Posterior lesion no calcifications in specimen Description of Procedure: Sandie is an 85-year-old white female who on a routine mammogram was noted to have 2 new areas of calcification in the right retroareolar region. Her mammogram was reviewed with radiology and it was felt that the lesions were suspicious however there was some concern that the patient would be able to tolerate a stereotactic core biopsy. Additionally the patient has multiple comorbidities and watchful waiting was considered. However when I had discussion with the patient and the person accompanying her she was very anxious about knowing that the calcifications were presented and wished to attempt a stereo biopsy. Therefore risk and benefits of the procedure including bleeding, infection, reaction to the anesthetic were discussed with the patient and she wished to proceed. Additionally it was discussed that if we could mass identify the spots that we will follow these conservatively. Additionally of these showed any cancer or suspicious lesions that may be recommended that they be removed. The patient was brought to the stereotactic core biopsy wound. She was positioned prone on the lower back table. A power electronics research engineer film was obtained. A CC from above approach was utilized. Both areas of calcification were identified. Both areas were targeted. The anterior lesion was approached initially. The breast was prepped using Betadine. 14-1/2 mL of 1% lidocaine were used to anesthetize the area of concern. A 9-gauge vacuum-assisted core rotating bisecting needle was driven to the correct lesion. Prefire film was obtained. The needle was noted to be in the correct location. The needle was fired. Post fire film was obtained. The needle was again noted to be in the correct location. 14 core samples were obtained. Radiograph the specimen revealed calcifications in the specimen. A secure marked Top-Hat clip was placed. The posterior lesion was then approached. A previously been targeted needle was driven to the correct coordinates. The breast was prepped using Betadine. 14 and half cc of 1% lidocaine were used to anesthetize the area of concern. The needle was driven to the correct target. Prefire film was obtained. This was noted to be in the correct location and the needle was fired. Post fire film was obtained and noted to be in the correct location. 9-gauge vacuum-assisted core rotating biopsy needle was utilized. The patient stated she had increased discomfort and an additional 5 mL of lidocaine were injected. 6 core samples were obtained. The patient then stated she again had discomfort and wished to discontinue the procedure. At that point radiograph of the specimen was obtained it did not reveal calcifications. The patient was aware of this and again wished to discontinue the procedure. Therefore a try jose m clip was placed. In the procedure was terminated. Specimens will be sent to pathology. The patient will follow-up with Dr. Abbott next week. Impression: Adequate sampling of the anterior specimen No calcifications noted and posterior specimen although the clip appears to be in the vicinity of the lesion Pathology Results: Benign A. 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 B. 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 RECOMMENDATION: Follow-up diagnostic mammogram of the right breast in 6 months. BARBY
== END ==
LOC: RADMAMWWP 06:53
PROVIDERS: ATTEND Surgery
DX: N60.11 Diffuse cystic mastopathy of right breast (principal); N62 Hypertrophy of breast; R92.8 Other abnormal and inconclusive findings on diagnostic imaging of breast; R92.0 Mammographic microcalcification found on diagnostic imaging of breast
CPT/HCPCS: 88305; 85610; 85730; 19081; 19082; J2001

== ENCOUNTER 2020-12-28 04:40 | Emergency (ER) | payer MEDICARE ==
[2020-12-28 04:54] VITALS: BP 166/104; RESP 18; TEMP 97.6
[2020-12-28] MEDS ORDERED: TOPICAL SKIN ADHESIVE 1 EACH AMP TOPICAL ONE (05:15)
[2020-12-28] MEDS ORDERED: ACETAMINOPHEN TAB 325 MG TAB PO STA (05:26)
[2020-12-28] MEDS ORDERED: ALBUTEROL NEBULIZED 2.5 MG/3 ML INHALATION STA (05:26)
[2020-12-28 05:45] VITALS: PULSE 88
--- NOTE | 2020-12-28 05:56 | ED ---
Recheck HPI - General Chief Complaint: Recheck/Abnormal Lab/Rx Stated Complaint: Post-op bleeding Time Seen by Provider: 12/28/20 05:05 Source: patient Mode of arrival: ambulatory Limitations: no limitations - Related Data Home Medications Medication Instructions Recorded Confirmed allopurinoL [Zyloprim] 100 mg PO DAILY 05/27/19 12/26/20 Ezetimibe/Simvastatin [Vytorin 1 tab PO DAILY 09/10/19 12/26/20 10-10 mg] dilTIAZem HCL [Diltiazem HCl] 30 mg PO BID 09/10/19 12/26/20 Tolterodine Tartrate [Detrol LA] 2 mg PO DAILY 08/14/20 12/26/20 Warfarin [Coumadin] 1 mg PO HS 08/14/20 12/26/20 Budesonide [Pulmicort] 0.5 mg INHALATION BID 12/05/20 12/26/20 Previous Rx's Medication Instructions Recorded Furosemide [Lasix] 20 mg PO DAILY #0 08/20/20 Ipratropium-Albuterol Nebulize 3 ml INHALATION RT-QID ml 08/20/20 [Duoneb 0.5 mg-3 mg/3 ml Soln] Metoprolol Tartrate [Lopressor] 12.5 mg PO TID #90 tab 08/20/20 Allergies Allergy/AdvReac Type Severity Reaction Status Date / Time No Known Allergies Allergy Verified 12/28/20 04:54 Review of Systems ROS Statement: Those systems with pertinent positive or pertinent negative responses have been documented in the HPI. ROS Other: All systems not noted in ROS Statement are negative. Past Medical History Past Medical History: Atrial Fibrillation, Chest Pain / Angina, Heart Failure, COPD, CVA/TIA, Hyperlipidemia, Hypertension, Pneumonia, Renal Disease Additional Past Medical History / Comment(s): COPD, severe MR, severe TR, moderate to severe pulmonary hypertension, chronic atrial fibrillation, hypertension, hyperlipidemia, history of hypercoagulability and and the patient has been maintained on anticoagulation with warfarin, abdominal hernia, diverticulosis and previous history of diverticulitis, history of urinary incontinence, hypertension, history of CVA History of Any Multi-Drug Resistant Organisms: None Reported Past Surgical History: Adenoidectomy, Appendectomy, Breast Surgery, Heart Catheterization, Hysterectomy, Tonsillectomy Additional Past Surgical History / Comment(s): CATARACTS-LENS IMPLANTS, CYSTOCELE/RECTOCELE AND HOLE IN BOWEL REPAIRED, LT HAND THUMB SX, BREAST BIOPSY- NEG, 4 cm AAA, L little toe bone removed, hammer toe surgery, Breast biopsy 12/24 Past Anesthesia/Blood Transfusion Reactions: No Reported Reaction Past Psychological History: No Psychological Hx Reported Smoking Status: Never smoker Past Alcohol Use History: None Reported Past Drug Use History: None Reported - Past Family History Father Family Medical History: Cancer, Myocardial Infarction (VT) Additional Family Medical History / Comment(s): ANEURYSMS, BONE CA. AGE 75 FROM ANEURYSM IN HEAD Mother Family Medical History: Congestive Heart Failure (CHF) Additional Family Medical History / Comment(s): AT AGE 84 General Exam Limitations: no limitations Course Vital Signs 12/28/20 12/28/20 12/28/20 04:51 05:40 05:45 Temperature 97.6 F Pulse Rate 84 84 88 Respiratory 18 Rate Blood Pressure 166/104 O2 Sat by Pulse 96 Oximetry Disposition Clinical Impression: Visit for wound check Disposition: HOME SELF-CARE Condition: Good Is patient prescribed a controlled substance at d/c from ED?: No Referrals: Henrique Barber MD [Primary Care Provider] - 1-2 days
[2020-12-28 06:58] LABS: INR 1.1 (<1.2); Prothrombin Time 11.6 sec (9.0-12.0)
== END 2020-12-28 07:21 | disposition home or self-care (01) ==
LOC: EC 04:40
DX: Z48.00 Encounter for change or removal of nonsurgical wound dressing (principal); I48.91 Unspecified atrial fibrillation; J44.9 Chronic obstructive pulmonary disease, unspecified; E78.5 Hyperlipidemia, unspecified; Z86.73 Personal history of transient ischemic attack (TIA), and cerebral infarction without residual deficits; I11.0 Hypertensive heart disease with heart failure
CPT/HCPCS: 36415; 85610; 94640; 99283

== ENCOUNTER → 2021-01-03 | Outpatient (CLI) | payer MEDICARE ==
[2021-01-03 10:17] VITALS: BP 113/67; PULSE 80; RESP 16; TEMP 97.8
--- NOTE | 2021-01-03 10:37 | P.PN ---
Subjective Progress Note Date: 01/03/21 Principal diagnosis: sttus post stero biopsy of two sites in the right breast on 12-26-20 Sandie is an 85 year old white female status post stero biopsy of two sites in the right breast. The anterior site revealed fibroadenomatoid hyperplasia with calcifications. The posterior site revealed for fibroadenoma adenomatoid hyperplasia however no calcifications were noted in the specimen. It is believed that this biopsy was in proximity to the microcalcifications but did not sample the microcalcifications. The patient and her daughter are aware of this. It should be noted that the patient on the first post procedure day developed bleeding at one of the biopsy sites and was seen in the emergency room for glue was placed at this site. The patient does have some mild erythema at this site and some ecchymosis in the breast. She has not had any fever or chills. Objective - Vital Signs Vital signs: Vital Signs Temp 97.8 F 01/03/21 10:09 Pulse 80 01/03/21 10:09 Resp 16 01/03/21 10:09 BP 113/67 01/03/21 10:09 Pulse Ox 94 L 01/03/21 10:09 Intake & Output 01/02/21 01/03/21 01/03/21 18:59 06:59 18:59 Weight 67.585 kg - Constitutional General appearance: Present: cooperative - EENT Eyes: Present: EOMI ENT: Present: hearing grossly normal - Neck Neck: Present: normal ROM - Respiratory Respiratory: bilateral: CTA - Cardiovascular Heart sounds: normal: S1, S2 - Integumentary Integumentary Comment(s): Echymosis right breast, the more superior site has some erythema in proximity which may be related to the glue which was placed - Musculoskeletal Musculoskeletal Comment(s): using a wheel chair - Psychiatric Psychiatric: Present: A&O x's 3, appropriate affect, intact judgment & insight Assessment and Plan Assessment: Impression: 1. Patient status post stereotactic core biopsy 2 sites in right breast, both benign, the posterior site did not sample calcifications but was in proximity 2. Post procedure patient had some bleeding and was seen in emergency room and glue was placed at the skin site this is mildly erythematous at this time Plan: 1. Keflex 250 mg 1 by mouth 4 times a day 2. Follow up next week to assure erythema has resolved 3. Right breast mammogram in 6 months with physician exam at that time CC: Dr. Barber
== END ==
LOC: WWCWWP 09:49
PROVIDERS: ATTEND Surgery
DX: N60.91 Unspecified benign mammary dysplasia of right breast (principal); L76.82 Other postprocedural complications of skin and subcutaneous tissue

== ENCOUNTER → 2021-01-10 | Outpatient (CLI) | payer MEDICARE ==
[2021-01-10 09:02] VITALS: BP 135/81; PULSE 67; RESP 16; TEMP 98.3
--- NOTE | 2021-01-10 09:13 | P.PN ---
Progress Note - Text Progress Note Date: 01/10/21 status post stero biopsy of two sites in the right breast on 12-26-20 Sandie is an 85 year old white female status post stero biopsy of two sites in the right breast. The anterior site revealed fibroadenomatoid hyperplasia with calcifications. The posterior site revealed for fibroadenoma adenomatoid hyperplasia however no calcifications were noted in the specimen. It is believed that this biopsy was in proximity to the microcalcifications but did not sample the microcalcifications. The patient and her daughter are aware of this. It should be noted that the patient on the first post procedure day developed bleeding at one of the biopsy sites and was seen in the emergency room glue was placed at this site. The patient did have some mild erythema at the site and some ecchymosis in the breast. She has not had any fever or chills. Physical examination: Ecchymosis right breast biopsy site with a scab on it no evidence of infection Plan: Right breast mammogram in 6 months with physician exam at that time CC: Dr. Barber
== END ==
LOC: WWCWWP 08:46
PROVIDERS: ATTEND Surgery
DX: D24.1 Benign neoplasm of right breast (principal); N62 Hypertrophy of breast; R92.1 Mammographic calcification found on diagnostic imaging of breast

== ENCOUNTER 2021-01-19 08:50 | Emergency (ER) | payer MEDICARE ==
[2021-01-19 08:56] VITALS: RESP 18
--- NOTE | 2021-01-19 09:01 | ED ---
Fall HPI - General Chief Complaint: Fall Stated Complaint: fall Time Seen by Provider: 01/19/21 08:50 Source: patient, EMS, RN notes reviewed, old records reviewed Mode of arrival: EMS - History of Present Illness Initial Comments: 85-year-old female with a history of COPD CHF atrial fibrillation who is on Coumadin who tripped on a door stoop this morning and fell striking her right side of her head on the ground. She complains of some localized pain and small amount of bleeding she also complains of low back pain he does have some chronic pain but is worse at this time. No other complaints or modifying factors MD Complaint: fall - Related Data Home Medications Medication Instructions Recorded Confirmed allopurinoL [Zyloprim] 100 mg PO DAILY 05/27/19 01/19/21 Ezetimibe/Simvastatin [Vytorin 1 tab PO DAILY 09/10/19 01/19/21 10-10 mg] Tolterodine Tartrate [Detrol LA] 2 mg PO DAILY 08/14/20 01/19/21 Warfarin [Coumadin] 1 mg PO MOTUTHFR@1800 08/14/20 01/19/21 Budesonide [Pulmicort] 0.5 mg INHALATION RT-BID 12/05/20 01/19/21 Aspirin EC [Ecotrin Low Dose] 81 mg PO DAILY 01/19/21 01/19/21 Diltiazem Oral [Cardizem Oral] 60 mg PO BID 01/19/21 01/19/21 Metoprolol Tartrate [Lopressor] 12.5 mg PO TID 01/19/21 01/19/21 Warfarin [Coumadin] 1.5 mg PO SUWESA@1800 01/19/21 01/19/21 Previous Rx's Medication Instructions Recorded Furosemide [Lasix] 20 mg PO DAILY #0 08/20/20 Ipratropium-Albuterol Nebulize 3 ml INHALATION RT-QID ml 08/20/20 [Duoneb 0.5 mg-3 mg/3 ml Soln] Allergies Allergy/AdvReac Type Severity Reaction Status Date / Time No Known Allergies Allergy Verified 01/19/21 11:20 Review of Systems ROS Statement: Those systems with pertinent positive or pertinent negative responses have been documented in the HPI. ROS Other: All systems not noted in ROS Statement are negative. Past Medical History Past Medical History: Atrial Fibrillation, Chest Pain / Angina, Heart Failure, COPD, CVA/TIA, Hyperlipidemia, Hypertension, Pneumonia, Renal Disease Additional Past Medical History / Comment(s): COPD, severe MR, severe TR, moderate to severe pulmonary hypertension, chronic atrial fibrillation, hypertension, hyperlipidemia, history of hypercoagulability and and the patient has been maintained on anticoagulation with warfarin, abdominal hernia, diverticulosis and previous history of diverticulitis, history of urinary incontinence, hypertension, history of CVA History of Any Multi-Drug Resistant Organisms: None Reported Past Surgical History: Adenoidectomy, Appendectomy, Breast Surgery, Heart Catheterization, Hysterectomy, Tonsillectomy Additional Past Surgical History / Comment(s): CATARACTS-LENS IMPLANTS, CYSTOCELE/RECTOCELE AND HOLE IN BOWEL REPAIRED, LT HAND THUMB SX, BREAST BIOPSY- NEG, 4 cm AAA, L little toe bone removed, hammer toe surgery, Breast biopsy 12/24 Past Anesthesia/Blood Transfusion Reactions: No Reported Reaction Past Psychological History: No Psychological Hx Reported Smoking Status: Never smoker Past Alcohol Use History: None Reported Past Drug Use History: None Reported - Past Family History Father Family Medical History: Cancer, Myocardial Infarction ([place]) Additional Family Medical History / Comment(s): ANEURYSMS, BONE CA. AGE 75 FROM ANEURYSM IN HEAD Mother Family Medical History: Congestive Heart Failure (CHF) Additional Family Medical History / Comment(s): AT AGE 84 General Exam - General Exam Comments Initial Comments: This is a well-developed well-nourished awake alert oriented 3 female she does demonstrate a Ransom Coma Scale of 15 Limitations: no limitations General appearance: alert, anxious Head exam: Present: normocephalic, other (Contusion seen over the right frontal scalp and forehead no active bleeding at this time evidence of abrasion no suture repair indicated no step-off no crepitation.) Eye exam: Present: normal appearance, PERRL, EOMI. Absent: scleral icterus, conjunctival injection, periorbital swelling ENT exam: Present: normal exam, mucous membranes moist Neck exam: Present: normal inspection. Absent: tenderness, meningismus, lymphadenopathy Respiratory exam: Present: normal lung sounds bilaterally. Absent: respiratory distress, wheezes, rales, rhonchi, stridor Cardiovascular Exam: Present: irregular rhythm. Absent: systolic murmur, diastolic murmur, rubs, gallop, clicks GI/Abdominal exam: Present: soft, normal bowel sounds. Absent: distended, tenderness, guarding, rebound, rigid Extremities exam: Present: normal inspection, full ROM, normal capillary refill. Absent: tenderness, pedal edema, joint swelling, calf tenderness Back exam: Present: normal inspection, tenderness (Tenderness over the mid and lower lumbar spinous region paraspinous musculature no definitive proximal spinous process tenderness.). Absent: full ROM Neurological exam: Present: alert, oriented X3, CN II-XII intact Psychiatric exam: Present: normal affect, normal mood Skin exam: Present: warm, dry. Absent: rash Course Vital Signs 01/19/21 01/19/21 01/19/21 08:52 09:46 10:37 Pulse Rate 74 82 74 Respiratory 18 18 Rate Blood Pressure 171/99 157/103 O2 Sat by Pulse 96 97 Oximetry 01/19/21 10:46 Pulse Rate 80 Respiratory Rate Blood Pressure O2 Sat by Pulse Oximetry - Reevaluation(s) Reevaluation #1: 01/19/21 12:10 Reevaluation the patient did feel improved after the medication given. Medical Decision Making - Medical Decision Making I did a long discussion with the patient and her daughter regarding the findings patient wants to go home lobe will be discharged is follow-up with her doctor return when necessary - Radiology Data Radiology results: report reviewed (Imaging reviewed there was some delay in getting the lumbar spine imaging done no acute processes are seen), image reviewed Disposition Clinical Impression: Fall, Scalp hematoma, Hematoma of right orbit, Lumbar strain, Scalp contusion Disposition: HOME SELF-CARE Condition: Good Instructions (If sedation given, give patient instructions): Fall Prevention for Older Adults (ED), Facial Contusion (ED), Hematoma (ED), Contusion in Adults (ED) Is patient prescribed a controlled substance at d/c from ED?: No Referrals: Henrique Barber MD [Primary Care Provider] - 1-2 days
[2021-01-19] MEDS ORDERED: fentaNYL (PF) 50 MCG/ML 2 ML AMP IVP ONE (09:46)
[2021-01-19 09:47] VITALS: BP 157/103
[2021-01-19] MEDS ORDERED: ALBUTEROL NEBULIZED 2.5 MG/3 ML INHALATION STA (10:08)
--- NOTE | 2021-01-19 10:11 | CT ---
EXAMINATION TYPE: CT brain leatha baca DATE OF EXAM: 01/19/2021 COMPARISON: 04/03/2020 HISTORY: Trip and fall struck head on counter, hematoma to forehead, C/O low back pain, H/O CVA/TIA TECHNIQUE: CT scan of the head and cervical spine without contrast CT DLP: 1174.1 mGycm Automated exposure control for dose reduction was used. FINDINGS: No acute intracranial hemorrhage, midline shift or mass effect. Michaud-white matter differentiation is preserved. CSF spaces and ventricles are prominent in keeping with brain volume loss. Patchy low-attenuation in the deep white matter similar to prior study likely reflecting chronic microvascular ischemia. There are atherosclerotic calcifications seen in the bilateral intracranial internal carotid arteries . Soft tissue swelling is seen over the frontal bone more on the right side. No acute orbital or osseou s abnormality. Paranasal sinuses and mastoid air cells are radiated. There are scattered calcifications in the bilateral vertebral arteries within the intraforaminal and extraforaminal segments. There is reversal of the cervical curvature. The atlantooccipital joint is maintained. There is fusion of the posterior elements of C1 and C2. There are areas of low attenuation within the C2 dense with focal area of decreased cortical attenuat ion posteriorly there is 303 image 50 no significant change. The vertebral body heights are normal. Posterior elements are acutely intact. Multilevel narrowing of the intervertebral spaces, disc osteophyte complexes at C5-6 and C6-7. Uncove rtebral facet joint arthropathy changes and ventral bony spurs. No significant posterior soft tissue swelling. Prevertebral soft tissues are normal in thickness. Thornton ited airways are patent. IMPRESSION: 1. NO EVIDENCE FOR ACUTE INTRACRANIAL HEMORRHAGE, MIDLINE SHIFT OR MASS EFFECT. 2. CHRONIC BRAIN CHANGES DESCRIBED IN BODY OF REPORT. 3. NO EVIDENCE FOR ACUTE C-SPINE FRACTURE, CHRONIC CHANGES IN THE C-SPINE DESCRIBED IN BODY OF THE REPORT. 4. SOFT TISSUE SWELLING OVER THE FRONTAL BONE GREATER ON THE RIGHT.
[2021-01-19 10:46] VITALS: PULSE 80
--- NOTE | 2021-01-19 11:52 | CT ---
EXAMINATION TYPE: CT lumbar spine wo con DATE OF EXAM: 01/19/2021 COMPARISON: 08/14/2020 CT abdomen pelvis HISTORY: Trip and Fall, struck head on counter, hematoma to forehead, C/o low back pain, H/O CVA/TIA TECHNIQUE: CT scan of the lumbar spine performed without contrast CT DLP: 842.8 mGycm Automated exposure control for dose reduction was used. FINDINGS: Maintained lumbar lordosis with slight exaggeration. Normal vertebral body heights. Acutely intact posterior elements. There is mild narrowing at L2-3. There is advanced facet joint arthropathy changes. There are dense m aterial within the L5-S1 disc which could be related to prior intervention. There are other disc spac es demonstrating calcific densities such as L2-3, L3-4 and L4-5. No bony spinal canal stenosis. There is an exophytic cortical based mass from the left kidney soft tissue attenuation. There is incr eased density in the left upper quadrant of unknown clinical etiology. There are atherosclerotic calc ifications in the abdominal aorta and a stent in the rather extends from the superolateral renal leve l to the infrarenal level and bilateral common iliac arteries proximally. Partially seen colonic dive rticulosis without evidence of acute diverticulitis. Please refer to most recent CT of the abdomen an d pelvis dated 08/14/2020 for additional evaluation. IMPRESSION: NO ACUTE LUMBAR SPINE FRACTURE OR DISLOCATION. ADDITION FINDINGS RELATED TO THE ABDOMEN AND PELVIS DESCRIBED IN BODY OF REPORT BETTER SEEN AND DESCR IBED ON MOST RECENT CT OF THE ABDOMEN AND PELVIS DATED 08/14/2020.
== END 2021-01-19 12:27 | disposition home or self-care (01) ==
LOC: EC 08:50
DX: S39.012A Strain of muscle, fascia and tendon of lower back, initial encounter (principal); S00.03XA Contusion of scalp, initial encounter; I11.0 Hypertensive heart disease with heart failure; I50.9 Heart failure, unspecified; J44.9 Chronic obstructive pulmonary disease, unspecified; E78.5 Hyperlipidemia, unspecified; Z79.01 Long term (current) use of anticoagulants; Z79.51 Long term (current) use of inhaled steroids; Z79.82 Long term (current) use of aspirin; Z79.899 Other long term (current) drug therapy; Z82.49 Family history of ischemic heart disease and other diseases of the circulatory system; Z86.73 Personal history of transient ischemic attack (TIA), and cerebral infarction without residual deficits; Z90.49 Acquired absence of other specified parts of digestive tract; W01.0XXA Fall on same level from slipping, tripping and stumbling without subsequent striking against object, initial encounter
CPT/HCPCS: 99284 ×2; 96374 ×2; 94640; 72125; 72131; 70450; J3010

== ENCOUNTER 2021-02-12 16:55 | Emergency (ER) | payer MEDICARE ==
[2021-02-12 18:48] LABS: Anisocytosis Slight; Basophils # (A) 0.1 k/uL (0-0.2); Basophils % (A) 1 %; Eosinophils # (A) 0.1 k/uL (0-0.7); Eosinophils % (A) 1 %; HGB 14.1 gm/dL (11.4-16.0); Lymphocytes # (A) 2.1 k/uL (1.0-4.8); Lymphocytes % (A) 21 %; MCH 28.3 pg (25.0-35.0); MCHC 31.4 g/dL (31.0-37.0); MCV 90.1 fL (80.0-100.0); Mean Platelet Volume 7.1; Monocytes # (A) 0.7 k/uL (0-1.0); Monocytes % (A) 7 %; Neutrophils # (A) 6.6 k/uL (1.3-7.7); Neutrophils % (A) 69 %; Platelet Count 299 k/uL (150-450); RBC 4.99 m/uL (3.80-5.40); RDW 16.8 % (11.5-15.5); WBC 9.7 k/uL (3.8-10.6)
[2021-02-12 18:59] LABS: Albumin 3.7 g/dL (3.5-5.0); Calcium 9.6 mg/dL (8.4-10.2); Total Bilirubin 0.4 mg/dL (0.2-1.3); Total Protein 7.1 g/dL (6.3-8.2)
[2021-02-12 19:03] LABS: INR 1.4 (<1.2); Partial Thromboplastin Time 27.9 sec (22.0-30.0); Prothrombin Time 14.1 sec (9.0-12.0)
[2021-02-12] MEDS ORDERED: ALBUTEROL NEBULIZED 2.5 MG/3 ML INHALATION PRN (19:40)
[2021-02-12] MEDS ORDERED: AZITHROMYCIN 500 MG in SODIUM CHLORIDE 0.9% 250 ML IVPB STA (19:40)
[2021-02-12] MEDS ORDERED: cefTRIAXone IN SWFI 1,000 MG/10 ML SYRINGE IVP STA (19:40)
[2021-02-12] MEDS ORDERED: methylPREDNISolone SOD SUCCI 125 MG/2 ML VIAL IV STA (19:40)
[2021-02-12] MEDS ORDERED: IPRATROPIUM-ALBUTEROL 3 ML NEB INHALATION STA (19:40)
--- NOTE | 2021-02-12 19:42 | ED ---
General Adult HPI - General Chief complaint: Shortness of Breath Stated complaint: ANA Time Seen by Provider: 02/12/21 19:34 Source: patient, family, RN notes reviewed, old records reviewed Mode of arrival: wheelchair Limitations: no limitations - History of Present Illness Initial comments: 85-year-old female presenting for evaluation of increased cough and dyspnea. Patient has history of COPD she is on 3 L nasal cannula. She denies central chest pain. Denies lower sternal pain or swelling. She has a history of atrial fibrillation and is on anticoagulation. She has not been exposed to any known cases of coronavirus but she is not vaccinated. - Related Data Home Medications Medication Instructions Recorded Confirmed allopurinoL [Zyloprim] 100 mg PO DAILY 05/27/19 01/19/21 Ezetimibe/Simvastatin [Vytorin 1 tab PO DAILY 09/10/19 01/19/21 10-10 mg] Tolterodine Tartrate [Detrol LA] 2 mg PO DAILY 08/14/20 01/19/21 Warfarin [Coumadin] 1 mg PO MOTUTHFR@1800 08/14/20 01/19/21 Budesonide [Pulmicort] 0.5 mg INHALATION RT-BID 12/05/20 01/19/21 Aspirin EC [Ecotrin Low Dose] 81 mg PO DAILY 01/19/21 01/19/21 Diltiazem Oral [Cardizem Oral] 60 mg PO BID 01/19/21 01/19/21 Metoprolol Tartrate [Lopressor] 12.5 mg PO TID 01/19/21 01/19/21 Warfarin [Coumadin] 1.5 mg PO SUWESA@1800 01/19/21 01/19/21 Previous Rx's Medication Instructions Recorded Furosemide [Lasix] 20 mg PO DAILY #0 08/20/20 Ipratropium-Albuterol Nebulize 3 ml INHALATION RT-QID ml 08/20/20 [Duoneb 0.5 mg-3 mg/3 ml Soln] Levofloxacin [Levaquin] 500 mg PO DAILY 5 Days #5 tab 02/12/21 predniSONE 50 mg PO DAILY #5 tab 02/12/21 Allergies Allergy/AdvReac Type Severity Reaction Status Date / Time No Known Allergies Allergy Verified 02/12/21 20:52 Review of Systems ROS Statement: Those systems with pertinent positive or pertinent negative responses have been documented in the HPI. ROS Other: All systems not noted in ROS Statement are negative. Past Medical History Past Medical History: Atrial Fibrillation, Chest Pain / Angina, Heart Failure, COPD, CVA/TIA, Hyperlipidemia, Hypertension, Pneumonia, Renal Disease Additional Past Medical History / Comment(s): COPD, severe MR, severe TR, moderate to severe pulmonary hypertension, chronic atrial fibrillation, hypertension, hyperlipidemia, history of hypercoagulability and and the patient has been maintained on anticoagulation with warfarin, abdominal hernia, diverticulosis and previous history of diverticulitis, history of urinary incontinence, hypertension, history of CVA History of Any Multi-Drug Resistant Organisms: None Reported Past Surgical History: Adenoidectomy, Appendectomy, Breast Surgery, Heart Catheterization, Hysterectomy, Tonsillectomy Additional Past Surgical History / Comment(s): CATARACTS-LENS IMPLANTS, CYSTOCELE/RECTOCELE AND HOLE IN BOWEL REPAIRED, LT HAND THUMB SX, BREAST BIOPSY- NEG, 4 cm AAA, L little toe bone removed, hammer toe surgery, Breast biopsy 12/24 Past Anesthesia/Blood Transfusion Reactions: No Reported Reaction Past Psychological History: No Psychological Hx Reported Smoking Status: Never smoker Past Alcohol Use History: None Reported Past Drug Use History: None Reported - Past Family History Father Family Medical History: Cancer, Myocardial Infarction ([place]) Additional Family Medical History / Comment(s): ANEURYSMS, BONE CA. AGE 75 FROM ANEURYSM IN HEAD Mother Family Medical History: Congestive Heart Failure (CHF) Additional Family Medical History / Comment(s): AT AGE 84 General Exam Limitations: no limitations General appearance: alert, in distress Head exam: Present: atraumatic, normocephalic Eye exam: Present: normal appearance, PERRL ENT exam: Present: normal exam Neck exam: Present: normal inspection. Absent: tenderness, meningismus Respiratory exam: Present: respiratory distress, wheezes, accessory muscle use, decreased breath sounds Cardiovascular Exam: Present: regular rate, normal rhythm GI/Abdominal exam: Present: soft. Absent: distended, tenderness Extremities exam: Present: normal inspection, normal capillary refill. Absent: pedal edema Neurological exam: Present: alert, oriented X3, CN II-XII intact. Absent: motor sensory deficit Psychiatric exam: Present: normal affect, normal mood Skin exam: Present: warm, dry, intact. Absent: cyanosis, diaphoretic Course Vital Signs 02/12/21 02/12/21 02/12/21 17:42 20:42 20:51 Temperature 100.1 F H Pulse Rate 86 93 82 Respiratory 22 Rate Blood Pressure 132/87 O2 Sat by Pulse 96 Oximetry EKG Findings - EKG Comments: EKG Findings:: Atrial fibrillation, low voltage, incomplete right bundle-branch block, rate of 81, QRS duration 84, QTC 432, no ST segment elevation. Medical Decision Making - Medical Decision Making 85-year-old female history of COPD presenting with increased cough and dyspnea. Patient found to be febrile. X-ray is negative for large focal pneumonia. She has a normal CBC, normal CMP, negative troponin, negative coronavirus. I did offer this patient admission although she is not vaccinated and I do have concern for coronavirus exposure. She prefers discharge. 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 Servin and her daughter is currently staying with her. She is prescribed antibiotics and steroids she has albuterol at home as well as home oxygen. - Lab Data Result diagrams: 02/12/21 18:33 02/12/21 18:33 Lab Results 02/12/21 02/12/21 02/12/21 Range/Units 17:47 18:33 18:33 WBC 9.7 (3.8-10.6) k/uL RBC 4.99 (3.80-5.40) m/uL Hgb 14.1 (11.4-16.0) gm/dL Hct 45.0 (34.0-46.0) % MCV 90.1 (80.0-100.0) fL MCH 28.3 (25.0-35.0) pg MCHC 31.4 (31.0-37.0) g/dL RDW 16.8 H (11.5-15.5) % Plt Count 299 (150-450) k/uL MPV 7.1 Neutrophils % 69 % Lymphocytes % 21 % Monocytes % 7 % Eosinophils % 1 % Basophils % 1 % Neutrophils # 6.6 (1.3-7.7) k/uL Lymphocytes # 2.1 (1.0-4.8) k/uL Monocytes # 0.7 (0-1.0) k/uL Eosinophils # 0.1 (0-0.7) k/uL Basophils # 0.1 (0-0.2) k/uL Anisocytosis Slight PT 14.1 H (9.0-12.0) sec INR 1.4 H (<1.2) APTT 27.9 (22.0-30.0) sec Sodium (137-145) mmol/L Potassium (3.5-5.1) mmol/L Chloride (98-107) mmol/L Carbon Dioxide (22-30) mmol/L Anion Gap mmol/L BUN (7-17) mg/dL Creatinine (0.52-1.04) mg/dL Est GFR (CKD-EPI)AfAm (>60 ml/min/1.73 sqM) Est GFR (CKD-EPI)NonAf (>60 ml/min/1.73 sqM) Glucose (74-99) mg/dL Calcium (8.4-10.2) mg/dL Total Bilirubin (0.2-1.3) mg/dL AST (14-36) U/L ALT (4-34) U/L Alkaline Phosphatase (38-126) U/L Troponin I (0.000-0.034) ng/mL Total Protein (6.3-8.2) g/dL Albumin (3.5-5.0) g/dL Coronavirus (PCR) Not Detected (Not Detectd) 02/12/21 02/12/21 Range/Units 18:33 18:33 WBC (3.8-10.6) k/uL RBC (3.80-5.40) m/uL Hgb (11.4-16.0) gm/dL Hct (34.0-46.0) % MCV (80.0-100.0) fL MCH (25.0-35.0) pg MCHC (31.0-37.0) g/dL RDW (11.5-15.5) % Plt Count (150-450) k/uL MPV Neutrophils % % Lymphocytes % % Monocytes % % Eosinophils % % Basophils % % Neutrophils # (1.3-7.7) k/uL Lymphocytes # (1.0-4.8) k/uL Monocytes # (0-1.0) k/uL Eosinophils # (0-0.7) k/uL Basophils # (0-0.2) k/uL Anisocytosis PT (9.0-12.0) sec INR (<1.2) APTT (22.0-30.0) sec Sodium 140 (137-145) mmol/L Potassium 5.0 (3.5-5.1) mmol/L Chloride 108 H (98-107) mmol/L Carbon Dioxide 24 (22-30) mmol/L Anion Gap 8 mmol/L BUN 23 H (7-17) mg/dL Creatinine 0.76 (0.52-1.04) mg/dL Est GFR (CKD-EPI)AfAm 84 (>60 ml/min/1.73 sqM) Est GFR (CKD-EPI)NonAf 73 (>60 ml/min/1.73 sqM) Glucose 104 H (74-99) mg/dL Calcium 9.6 (8.4-10.2) mg/dL Total Bilirubin 0.4 (0.2-1.3) mg/dL AST 22 (14-36) U/L ALT 10 (4-34) U/L Alkaline Phosphatase 114 (38-126) U/L Troponin I <0.012 (0.000-0.034) ng/mL Total Protein 7.1 (6.3-8.2) g/dL Albumin 3.7 (3.5-5.0) g/dL Coronavirus (PCR) (Not Detectd) Disposition Clinical Impression: Acute exacerbation of chronic obstructive airways disease Disposition: ADMITTED IP TO THIS HOSP Condition: Fair Instructions (If sedation given, give patient instructions): COPD (Chronic Obstructive Pulmonary Disease) (ED) Prescriptions: Levofloxacin [Levaquin] 500 mg PO DAILY 5 Days #5 tab predniSONE 50 mg PO DAILY #5 tab Is patient prescribed a controlled substance at d/c from ED?: No Referrals: Henrique Barber MD [Primary Care Provider] - 1-2 days Time of Disposition: 21:00
--- NOTE | 2021-02-12 20:42 | XR ---
EXAMINATION TYPE: XR chest 2V DATE OF EXAM: 02/12/2021 COMPARISON: 08/14/2020 HISTORY: Short of breath TECHNIQUE: FINDINGS: There is no heart failure nor confluent pneumonic infiltrate. Heart appears borderline enla rged. There is slight coarsening of interstitial markings. Thoracic aorta is atheromatous. Bony thora x is intact. IMPRESSION: Mild pulmonary fibrosis. Mild cardiomegaly. Heart appears increased slightly compared to old exam.
[2021-02-12 22:27] VITALS: BP 94/53; PULSE 74; RESP 18; TEMP 97.7
== END 2021-02-12 22:12 | disposition other institution (70) ==
LOC: EC 16:55
DX: J44.1 Chronic obstructive pulmonary disease with (acute) exacerbation (principal); I48.91 Unspecified atrial fibrillation; I11.0 Hypertensive heart disease with heart failure; I50.9 Heart failure, unspecified; J44.9 Chronic obstructive pulmonary disease, unspecified; E78.5 Hyperlipidemia, unspecified; I27.20 Pulmonary hypertension, unspecified; Z79.01 Long term (current) use of anticoagulants; Z79.82 Long term (current) use of aspirin; Z86.73 Personal history of transient ischemic attack (TIA), and cerebral infarction without residual deficits; Z90.89 Acquired absence of other organs; Z90.710 Acquired absence of both cervix and uterus; Z90.49 Acquired absence of other specified parts of digestive tract; Z20.822 Contact with and (suspected) exposure to COVID-19
CPT/HCPCS: 99285; 96365; 96375 ×2; 36415; 94640; 93005; 80053; 84484; 85025; 85610; 85730; 87635; 71046; J2930; J0456; J0696

== ENCOUNTER 2021-03-12 10:22 | Inpatient (IN) | payer MEDICARE ==
[2021-03-12] MEDS ORDERED: IPRATROPIUM-ALBUTEROL 3 ML NEB INHALATION STA (10:51)
--- NOTE | 2021-03-12 11:00 | XR ---
EXAMINATION TYPE: XR chest 2V DATE OF EXAM: 03/12/2021 COMPARISON: Chest x-ray dated 02/12/2021 HISTORY: Difficulty breathing TECHNIQUE: Frontal and lateral views of the chest are obtained. FINDINGS: There is no pleural effusion or pneumothorax seen. Abnormal attenuation is present, bilate ral groundglass opacity, increase in interstitium noted within the lungs. Aorta is dense. Sue appear prominently. There are prominent lung volumes with flattening the hemidiaphragms. Postop changes are noted in the abdomen. Aorta is dense. The cardiac silhouette size is not significantly changed. Th e osseous structures are intact. IMPRESSION: Correlate for pneumonia, interstitial edema and CHF, there may be underlying COPD.
[2021-03-12 11:07] LABS: Albumin 3.2 g/dL (3.5-5.0); Calcium 8.4 mg/dL (8.4-10.2); Magnesium 2.2 mg/dL (1.6-2.3); Potassium 3.9 mmol/L (3.5-5.1); Total Bilirubin 0.8 mg/dL (0.2-1.3); Total Protein 6.4 g/dL (6.3-8.2)
[2021-03-12 11:10] LABS: INR 3.8 (<1.2); Partial Thromboplastin Time 35.6 sec (22.0-30.0)
[2021-03-12] MEDS ORDERED: DEXAMETHASONE SOD PHOSPHATE 10 MG/ML 1 ML VIAL IVP STA (11:17)
[2021-03-12 11:24] LABS: Anisocytosis Slight; Basophils # (A) 0.1 k/uL (0-0.2); Basophils % (A) 1 %; Eosinophils % (A) 0 %; HCT 48.9 % (34.0-46.0); HGB 15.4 gm/dL (11.4-16.0); Hypochromasia Moderate; Lymphocytes # (A) 1.4 k/uL (1.0-4.8); Lymphocytes % (A) 11 %; MCH 29.1 pg (25.0-35.0); MCHC 31.6 g/dL (31.0-37.0); Mean Platelet Volume 8.1; Monocytes # (A) 0.4 k/uL (0-1.0); Monocytes % (A) 3 %; Neutrophils # (A) 10.7 k/uL (1.3-7.7); Neutrophils % (A) 83 %; Platelet Count 248 k/uL (150-450); RBC 5.31 m/uL (3.80-5.40); RDW 16.8 % (11.5-15.5); WBC 12.9 k/uL (3.8-10.6)
[2021-03-12] MEDS ORDERED: NALOXONE 0.4 MG/ML 1 ML VIAL IV PRN (11:50)
--- NOTE | 2021-03-12 11:50 | ED ---
SOB HPI - General Chief Complaint: Shortness of Breath Stated Complaint: ANA Time Seen by Provider: 03/12/21 10:29 Source: patient, EMS, RN notes reviewed Mode of arrival: EMS Limitations: no limitations - History of Present Illness Initial Comments: Patient is an 85-year-old female that presents to the emergency department via EMS with increased shortness of breath. She notes she was diagnosed with pneumonia is on her second round antibiotics as she felt the first one. She notes she tested for Covid about a week ago and was negative. Patient notes she does have a history of A. fib and does not take any medication for. Patient was otherwise in good spirits. She was wheezing pretty loudly while on stretcher. Patient did have a nonrebreather on during the exam interview. She denied chest pain headache nausea vomiting diarrhea constipation fever fatigue chills. - Related Data Home Medications Medication Instructions Recorded Confirmed allopurinoL [Zyloprim] 100 mg PO DAILY 05/27/19 02/12/21 Ezetimibe/Simvastatin [Vytorin 1 tab PO DAILY 09/10/19 02/12/21 10-10 mg] Tolterodine Tartrate [Detrol LA] 2 mg PO DAILY 08/14/20 02/12/21 Warfarin [Coumadin] 1 mg PO MOTUTHFR@1800 08/14/20 02/12/21 Budesonide [Pulmicort] 0.5 mg INHALATION RT-BID 12/05/20 02/12/21 Aspirin EC [Ecotrin Low Dose] 81 mg PO DAILY 01/19/21 02/12/21 Diltiazem Oral [Cardizem Oral] 60 mg PO BID 01/19/21 02/12/21 Metoprolol Tartrate [Lopressor] 12.5 mg PO TID 01/19/21 02/12/21 Warfarin [Coumadin] 1.5 mg PO SUWESA@1800 01/19/21 02/12/21 Pantoprazole Sodium 40 mg PO DAILY 02/12/21 02/12/21 Previous Rx's Medication Instructions Recorded Ipratropium-Albuterol Nebulize 3 ml INHALATION RT-QID ml 08/20/20 [Duoneb 0.5 mg-3 mg/3 ml Soln] Levofloxacin [Levaquin] 500 mg PO DAILY 5 Days #5 tab 02/12/21 predniSONE 50 mg PO DAILY #5 tab 02/12/21 Allergies Allergy/AdvReac Type Severity Reaction Status Date / Time No Known Allergies Allergy Verified 03/12/21 10:30 Review of Systems ROS Statement: Those systems with pertinent positive or pertinent negative responses have been documented in the HPI. ROS Other: All systems not noted in ROS Statement are negative. Past Medical History Past Medical History: Atrial Fibrillation, Chest Pain / Angina, Heart Failure, COPD, CVA/TIA, Hyperlipidemia, Hypertension, Pneumonia, Renal Disease Additional Past Medical History / Comment(s): COPD, severe MR, severe TR, moderate to severe pulmonary hypertension, chronic atrial fibrillation, hypertension, hyperlipidemia, history of hypercoagulability and and the patient has been maintained on anticoagulation with warfarin, abdominal hernia, diverticulosis and previous history of diverticulitis, history of urinary incontinence, hypertension, history of CVA History of Any Multi-Drug Resistant Organisms: None Reported Past Surgical History: Adenoidectomy, Appendectomy, Breast Surgery, Heart Catheterization, Hysterectomy, Tonsillectomy Additional Past Surgical History / Comment(s): CATARACTS-LENS IMPLANTS, CYSTOCELE/RECTOCELE AND HOLE IN BOWEL REPAIRED, LT HAND THUMB SX, BREAST BIOPSY- NEG, 4 cm AAA, L little toe bone removed, hammer toe surgery, Breast biopsy 12/24 Past Anesthesia/Blood Transfusion Reactions: No Reported Reaction Past Psychological History: No Psychological Hx Reported Smoking Status: Never smoker Past Alcohol Use History: None Reported Past Drug Use History: None Reported - Past Family History Father Family Medical History: Cancer, Myocardial Infarction ([place]) Additional Family Medical History / Comment(s): ANEURYSMS, BONE CA. AGE 75 FROM ANEURYSM IN HEAD Mother Family Medical History: Congestive Heart Failure (CHF) Additional Family Medical History / Comment(s): AT AGE 84 General Exam Limitations: no limitations General appearance: alert, in no apparent distress Head exam: Present: atraumatic, normocephalic, normal inspection Eye exam: Present: normal appearance, PERRL, EOMI. Absent: scleral icterus, conjunctival injection, periorbital swelling ENT exam: Present: normal exam, mucous membranes moist Neck exam: Present: normal inspection. Absent: tenderness, meningismus, lymphadenopathy Respiratory exam: Present: wheezes, rhonchi, decreased breath sounds (I laterally). Absent: respiratory distress, rales, stridor Cardiovascular Exam: Present: regular rate, normal rhythm, normal heart sounds. Absent: systolic murmur, diastolic murmur, rubs, gallop, clicks GI/Abdominal exam: Present: soft, normal bowel sounds. Absent: distended, tenderness, guarding, rebound, rigid Extremities exam: Present: normal inspection, full ROM, normal capillary refill. Absent: tenderness, pedal edema, joint swelling, calf tenderness Neurological exam: Present: alert, oriented X3 Psychiatric exam: Present: normal affect, normal mood Skin exam: Present: warm, dry, intact, normal color. Absent: rash Course Vital Signs 03/12/21 03/12/21 03/12/21 10:25 10:36 11:00 Temperature 98.1 F Pulse Rate 136 H 137 H 122 H Respiratory 30 H 28 H 28 H Rate Blood Pressure 160/115 118/97 158/110 O2 Sat by Pulse 97 95 95 Oximetry Medical Decision Making - Medical Decision Making 85-year-old female diagnosed with pneumonia failing outpatient antibiotics present to emergency room with shortness of breath. Labs, chest x-ray, Covid test, DuoNeb ordered. Covid test positive. Chest x-ray shows pneumonia with bilateral groundglass opacities. Case discussed with Dr. Barber and he'll accept the admit with cardiology and pulmonology on consult. Case discussed with Dr. Valle. - Lab Data Result diagrams: 03/12/21 10:33 Lab Results 03/12/21 03/12/21 03/12/21 Range/Units 10:33 10:33 10:33 PT 37.0 H (9.0-12.0) sec INR 3.8 H (<1.2) APTT 35.6 H (22.0-30.0) sec Sodium 137 (137-145) mmol/L Potassium 3.9 (3.5-5.1) mmol/L Chloride 101 (98-107) mmol/L Carbon Dioxide 28 (22-30) mmol/L Anion Gap 8 mmol/L BUN 26 H (7-17) mg/dL Creatinine 0.82 (0.52-1.04) mg/dL Est GFR (CKD-EPI)AfAm 76 (>60 ml/min/1.73 sqM) Est GFR (CKD-EPI)NonAf 66 (>60 ml/min/1.73 sqM) Glucose 102 H (74-99) mg/dL Plasma Lactic Acid Romero 2.2 H* (0.7-2.0) mmol/L Calcium 8.4 (8.4-10.2) mg/dL Magnesium 2.2 (1.6-2.3) mg/dL Total Bilirubin 0.8 (0.2-1.3) mg/dL AST 30 (14-36) U/L ALT 23 (4-34) U/L Alkaline Phosphatase 97 (38-126) U/L Troponin I (0.000-0.034) ng/mL Total Protein 6.4 (6.3-8.2) g/dL Albumin 3.2 L (3.5-5.0) g/dL Coronavirus (PCR) (Not Detectd) 03/12/21 03/12/21 Range/Units 10:33 10:51 PT (9.0-12.0) sec INR (<1.2) APTT (22.0-30.0) sec Sodium (137-145) mmol/L Potassium (3.5-5.1) mmol/L Chloride (98-107) mmol/L Carbon Dioxide (22-30) mmol/L Anion Gap mmol/L BUN (7-17) mg/dL Creatinine (0.52-1.04) mg/dL Est GFR (CKD-EPI)AfAm (>60 ml/min/1.73 sqM) Est GFR (CKD-EPI)NonAf (>60 ml/min/1.73 sqM) Glucose (74-99) mg/dL Plasma Lactic Acid Romero (0.7-2.0) mmol/L Calcium (8.4-10.2) mg/dL Magnesium (1.6-2.3) mg/dL Total Bilirubin (0.2-1.3) mg/dL AST (14-36) U/L ALT (4-34) U/L Alkaline Phosphatase (38-126) U/L Troponin I 0.047 H* (0.000-0.034) ng/mL Total Protein (6.3-8.2) g/dL Albumin (3.5-5.0) g/dL Coronavirus (PCR) Detected A (Not Detectd) - EKG Data -: EKG Interpreted by Me EKG Comments: Ventricular rate 131 bpm, QRS duration 84 ms, QTC 472 ms, atrial fibrillation with rapid ventricular response. RSR or QR pattern in V1 suggest right ventricular conduction delay, ST depression consider some endocardial injury or digitalis effect. Abnormal ECG. - Radiology Data Radiology results: report reviewed, image reviewed Chest x-ray: There is no pleural effusion or pneumothorax seen. Abnormal attenuation is present bilateral groundglass opacity. Increased interstitial noted with the lungs. Aorta dense He'll appear prominently. There are prominent lung volumes with flattening the hemidiaphragms. Postop changes are noted in the abdomen. Aorta is dens. The cardiac silhouette size is not significant change. The osseous structures are intact. Disposition Clinical Impression: Pneumonia due to COVID-19 virus, Hypoxia Disposition: ADMITTED IP TO THIS HOSP Condition: Serious Referrals: Henrique Barber MD [Primary Care Provider] - 1-2 days Time of Disposition: 11:50
[2021-03-12] MEDS ORDERED: DILTIAZEM ORAL 60 MG TAB PO SCH (13:15)
[2021-03-12] MEDS ORDERED: FUROSEMIDE 10 MG/ML 4 ML VIAL IV STA (13:21)
--- NOTE | 2021-03-12 13:21 | P.CNPUL ---
<Rosa Velasquez - Last Filed: 03/12/21 13:03> History of Present Illness Consult date: 03/12/21 Requesting physician: Henrique Barber Reason for consult: dyspnea, hypoxemia, abnormal CXR/CT Chief complaint: Shortness of breath, cough, congestion History of present illness: This is an 85-year-old female patient who has a history of gout, atrial fibrillation anticoagulated with warfarin, hypertension, COPD, hyperlipidemia. She had been seen here approximately one month ago with increasing shortness of breath cough and congestion. She she was treated for COPD exacerbation. She tested negative for COVID-19 at that time. Throughout the past month she has been on antibiotics without much improvement. 3-4 days ago she had worsening shortness of breath, cough and congestion. She presented here to the emergency room today for the same. As x-ray reveals bilateral patchy groundglass opacities as well as interstitium and possible underlying edema. Evidence of COPD. Is currently on a nonrebreather mask with O2 saturation 95%. She remains in atrial fibrillation with heart rate in the 120s. She is tachypneic at 28. Afebrile. White count 12.9. Hemoglobin 15.4. INR 3.8. Sodium 137. Potassium 3.9. Creatinine 0.82. Lactic acid 2.2. Troponin 0.047. ProBNP 2810. AST 30. ALT 23. [place] virus by PCR positive. She's been initiated on Decadron. 0.9 normal sinus 130 MLS per hour. Review of Systems REVIEW OF SYSTEMS: CONSTITUTIONAL: Denies any recent significant weight loss or weight gain. EYES: Denies change in vision. EARS, NOSE, MOUTH, THROAT: Denies headaches, denies sore throat. CARDIOVASCULAR: Denies chest pain, palpitations or syncopal episodes. RESPIRATORY: Positive for shortness of breath, cough, congestion or hemoptysis. GASTROINTESTINAL: Denies change in appetite, denies abdominal pain GENITOURINARY: Denies hematuria, denies infections. MUSKULOSKELETAL: Denies pain, denies swelling. INTEGUMENTARY: Denies rash, denies eczema. NEUROLOGICAL: Denies recent memory loss, no recent seizure activity. PSYCHIATRIC: Denies anxiety, denies depression. HEMATOLOGIC/LYMPHATIC: Denies anemia, denies enlarged lymph nodes. Past Medical History Past Medical History: Atrial Fibrillation, Chest Pain / Angina, Heart Failure, COPD, CVA/TIA, Hyperlipidemia, Hypertension, Pneumonia, Renal Disease Additional Past Medical History / Comment(s): COPD, severe MR, severe TR, moderate to severe pulmonary hypertension, chronic atrial fibrillation, hypertension, hyperlipidemia, history of hypercoagulability and and the patient has been maintained on anticoagulation with warfarin, abdominal hernia, divertic ulosis and previous history of diverticulitis, history of urinary incontinence, hypertension, history of CVA History of Any Multi-Drug Resistant Organisms: None Reported Past Surgical History: Adenoidectomy, Appendectomy, Breast Surgery, Heart Cathet erization, Hysterectomy, Tonsillectomy Additional Past Surgical History / Comment(s): CATARACTS-LENS IMPLANTS, CYSTOCELE/RECTOCELE AND HOLE IN BOWEL REPAIRED, LT HAND THUMB SX, BREAST BIOPSY- NEG, 4 cm AAA, L little toe bone removed, hammer toe surgery, Breast biopsy 12/24 Past Anesthesia/Blood Transfusion Reactions: No Reported Reaction Past Psychological History: No Psychological Hx Reported Smoking Status: Never smoker Past Alcohol Use History: None Reported Past Drug Use History: None Reported - Past Family History Father Family Medical History: Cancer, Myocardial Infarction ([place]) Additional Family Medical History / Comment(s): ANEURYSMS, BONE CA. AGE 75 FROM ANEURYSM IN HEAD Mother Family Medical History: Congestive Heart Failure (CHF) Additional Family Medical History / Comment(s): AT AGE 84 Medications and Allergies Home Medications Medication Instructions Recorded Confirmed Type allopurinoL [Zyloprim] 100 mg PO DAILY 05/27/19 03/12/21 History Ezetimibe/Simvastatin [Vytorin 1 tab PO DAILY 09/10/19 03/12/21 History 10-10 mg] Tolterodine Tartrate [Detrol LA] 2 mg PO DAILY 08/14/20 03/12/21 History Warfarin [Coumadin] 1 mg PO MOTUTHFR@1800 08/14/20 03/12/21 History Ipratropium-Albuterol Nebulize 3 ml INHALATION RT-QID ml 08/20/20 03/12/21 Rx [Duoneb 0.5 mg-3 mg/3 ml Soln] Budesonide [Pulmicort] 0.5 mg INHALATION RT-BID 12/05/20 03/12/21 History Diltiazem Oral [Cardizem Oral] 60 mg PO BID 01/19/21 03/12/21 History Metoprolol Tartrate [Lopressor] 12.5 mg PO TID 01/19/21 03/12/21 History Warfarin [Coumadin] 1.5 mg PO SUWESA@1800 01/19/21 03/12/21 History Furosemide [Lasix] 20 mg PO DAILY 03/12/21 03/12/21 History predniSONE See Taper PO DIRECTED 03/12/21 03/12/21 History Allergies Allergy/AdvReac Type Severity Reaction Status Date / Time No Known Allergies Allergy Verified 03/12/21 10:30 Physical Exam Vitals: Vital Signs Temp Pulse Resp BP Pulse Ox 03/12/21 12:00 123 H 28 H 150/105 95 03/12/21 11:30 128 H 28 H 158/110 96 03/12/21 11:00 122 H 28 H 158/110 95 03/12/21 10:36 137 H 28 H 118/97 95 03/12/21 10:25 98.1 F 136 H 30 H 160/115 97 Intake and Output 03/11/21 03/12/21 03/12/21 22:59 06:59 14:59 Other: Weight 66.678 kg GENERAL EXAM: Alert, 85-year-old female patient, on a nonrebreather mask, in mild respiratory distress. HEAD: Normocephalic. EYES: Normal reaction of pupils, equal size. NOSE: Clear with pink turbinates. THROAT: No erythema or exudates. NECK: No masses, no JVD. CHEST: No chest wall deformity. LUNGS: Equal air entry with crackles in the bilateral bases. CVS: S1 and S2 normal with no audible murmur, regular rhythm. ABDOMEN: No hepatosplenomegaly, normal bowel sounds, no guarding or rigidity. SPINE: No scoliosis or deformity SKIN: No rashes CENTRAL NERVOUS SYSTEM: No focal deficits, tone is normal in all 4 extremities. EXTREMITIES: There is no peripheral edema. No clubbing, no cyanosis. Peripheral pulses are intact. Results - Laboratory Findings CBC and BMP: 03/12/21 10:33 03/12/21 10:33 PT/INR, D-dimer PT 37.0 sec (9.0-12.0) H 03/12/21 10:33 INR 3.8 (<1.2) H 03/12/21 10:33 Abnormal lab findings: Abnormal Labs 03/12/21 03/12/21 03/12/21 10:33 10:33 10:33 WBC 12.9 H Hct 48.9 H RDW 16.8 H PT 37.0 H INR 3.8 H APTT 35.6 H BUN 26 H Glucose 102 H Plasma Lactic Acid Romero Troponin I Albumin 3.2 L Coronavirus (PCR) 03/12/21 03/12/21 03/12/21 10:33 10:33 10:51 WBC Hct RDW PT INR APTT BUN Glucose Plasma Lactic Acid Romero 2.2 H* Troponin I 0.047 H* Albumin Coronavirus (PCR) Detected A - Diagnostic Findings Chest x-ray: image reviewed Assessment and Plan Assessment: 1 Acute hypoxemic respiratory failure secondary to acute COVID-19 pneumonia and possible on underlying congestive heart failure with interstitial edema and plan 100% oxygen via nonrebreather mask. Not vaccinated. We'll initiate Baricitinib after inflammatory markers are obtained 2 Atrial fibrillation with a rapid ventricular response, anti-coagulated with warfarin and INR 3.8 3 History of diastolic and systolic congestive heart failure 4 History of chronic obstructive pulmonary disease 5 Chronic hypoxic respiratory failure on 2 L of nasal cannula at home 6 Hypertension 7 Hyperlipidemia Plan: The patient was seen and evaluated today Chest x-ray and labs reviewed Give Lasix 40 mg IVP 1 Inflammatory markers ordered May qualify for Baricitinib Continue warfarin Add Decadron, vitamin supplements Titrate the FiO2 as tolerated Condition is guarded We will continue to follow and make further recommendations based on her clinical status I, the cosigning physician, performed a history & physical examination of the patient. Lungs sounds with coarse crackles in the bilateral bases. Maintaining good O2 saturations in the 90s on nonrebreather mask. I discussed the assessment and plan of care with my nurse practitioner, Rosa Velasquez. I attest to the above consultation as dictated by her. Time with Patient: Greater than 30 <Henrique Barber - Last Filed: 03/12/21 15:03> History of Present Illness Reason for consult: cough, COPD Physical Exam Vitals: Vital Signs Temp Pulse Resp BP Pulse Ox 03/12/21 13:55 117 H 28 H 153/106 98 03/12/21 12:00 123 H 28 H 150/105 95 03/12/21 11:30 128 H 28 H 158/110 96 12/08/21 11:00 122 H 28 H 158/110 95 03/12/21 10:36 137 H 28 H 118/97 95 03/12/21 10:25 98.1 F 136 H 30 H 160/115 97 Intake and Output 03/12/21 03/12/21 03/12/21 06:59 14:59 22:59 Other: Weight 66.678 kg Results - Laboratory Findings CBC and BMP: 03/12/21 10:33 03/12/21 10:33 PT/INR, D-dimer PT 37.0 sec (9.0-12.0) H 03/12/21 10:33 INR 3.8 (<1.2) H 03/12/21 10:33 D-Dimer 1.52 mg/L FEU (<0.60) H 03/12/21 13:24 Abnormal lab findings: Abnormal Labs 03/12/21 03/12/21 03/12/21 10:33 10:33 10:33 WBC 12.9 H Hct 48.9 H RDW 16.8 H Neutrophils # 10.7 H PT 37.0 H INR 3.8 H APTT 35.6 H D-Dimer BUN 26 H Glucose 102 H Plasma Lactic Acid Romero Lactate Dehydrogenase Troponin I C-Reactive Protein Albumin 3.2 L Coronavirus (PCR) 03/12/21 03/12/21 03/12/21 10:33 10:33 10:51 WBC Hct RDW Neutrophils # PT INR APTT D-Dimer BUN Glucose Plasma Lactic Acid Romero 2.2 H* Lactate Dehydrogenase Troponin I 0.047 H* C-Reactive Protein Albumin Coronavirus (PCR) Detected A 03/12/21 03/12/21 13:24 13:24 WBC Hct RDW Neutrophils # PT INR APTT D-Dimer 1.52 H BUN Glucose Plasma Lactic Acid Romero Lactate Dehydrogenase 1202 H Troponin I C-Reactive Protein 16.4 H Albumin Coronavirus (PCR)
[2021-03-12] MEDS: FUROSEMIDE 20 MG TAB PO SCH (13:42)
[2021-03-12] MEDS: SODIUM CHLORIDE 0.9% 1,000 ML IV SCH ×2 (13:46→21:48)
[2021-03-12] MEDS ORDERED: LORazepam 2 MG/ML INJ IV STA (13:55)
[2021-03-12 14:24] LABS: C Reactive Protein 16.4 mg/dL (<1.0)
[2021-03-12] MEDS ORDERED: DILTIAZEM DRIP BOLUS FROM BAG 1 MG SOLN IV ONE (14:52)
--- NOTE | 2021-03-12 15:04 | P.HPIM ---
History of Present Illness H&P Date: 03/12/21 (COVID-19 pneumonia, atrial septal with RVR, lactic acidosis, pulmonary hypertension was congestive heart failure) Chief Complaint: Patient complaining of severe shortness of breath she live with her juan r booth with a history of Past Medical History Past Medical History: Atrial Fibrillation, Chest Pain / Angina, Heart Failure, COPD, CVA/TIA, Hyperlipidemia, Hypertension, Pneumonia, Renal Disease Additional Past Medical History / Comment(s): COPD, severe MR, severe TR, moderate to severe pulmonary hypertension, chronic atrial fibrillation, hypertension, hyperlipidemia, history of hypercoagulability and and the patient has been maintained on anticoagulation with warfarin, abdominal hernia, diverticulosis and previous history of diverticulitis, history of urinary incontinence, hypertension, history of CVA History of Any Multi-Drug Resistant Organisms: None Reported Past Surgical History: Adenoidectomy, Appendectomy, Breast Surgery, Heart Catheterization, Hysterectomy, Tonsillectomy Additional Past Surgical History / Comment(s): CATARACTS-LENS IMPLANTS, CYSTOCELE/RECTOCELE AND HOLE IN BOWEL REPAIRED, LT HAND THUMB SX, BREAST BIOPSY- NEG, 4 cm AAA, L little toe bone removed, hammer toe surgery, Breast biopsy 12/24 Past Anesthesia/Blood Transfusion Reactions: No Reported Reaction Past Psychological History: No Psychological Hx Reported Smoking Status: Never smoker Past Alcohol Use History: None Reported Past Drug Use History: None Reported - Past Family History Father Family Medical History: Cancer, Myocardial Infarction ([place]) Additional Family Medical History / Comment(s): ANEURYSMS, BONE CA. AGE 75 FROM ANEURYSM IN HEAD Mother Family Medical History: Congestive Heart Failure (CHF) Additional Family Medical History / Comment(s): AT AGE 84 Medications and Allergies Home Medications Medication Instructions Recorded Confirmed Type allopurinoL [Zyloprim] 100 mg PO DAILY 05/27/19 03/12/21 History Ezetimibe/Simvastatin [Vytorin 1 tab PO DAILY 09/10/19 03/12/21 History 10-10 mg] Tolterodine Tartrate [Detrol LA] 2 mg PO DAILY 08/14/20 03/12/21 History Warfarin [Coumadin] 1 mg PO MOTUTHFR@1800 08/14/20 03/12/21 History Ipratropium-Albuterol Nebulize 3 ml INHALATION RT-QID ml 08/20/20 03/12/21 Rx [Duoneb 0.5 mg-3 mg/3 ml Soln] Budesonide [Pulmicort] 0.5 mg INHALATION RT-BID 12/05/20 03/12/21 History Diltiazem Oral [Cardizem Oral] 60 mg PO BID 01/19/21 03/12/21 History Metoprolol Tartrate [Lopressor] 12.5 mg PO TID 01/19/21 03/12/21 History Warfarin [Coumadin] 1.5 mg PO SUWESA@1800 01/19/21 03/12/21 History Furosemide [Lasix] 20 mg PO DAILY 03/12/21 03/12/21 History predniSONE See Taper PO DIRECTED 03/12/21 03/12/21 History Allergies Allergy/AdvReac Type Severity Reaction Status Date / Time No Known Allergies Allergy Verified 03/12/21 10:30 Physical Exam Vitals: Vital Signs Temp Pulse Resp BP Pulse Ox 03/12/21 13:55 117 H 28 H 153/106 98 03/12/21 12:00 123 H 28 H 150/105 95 03/12/21 11:30 128 H 28 H 158/110 96 03/12/21 11:00 122 H 28 H 158/110 95 03/12/21 10:36 137 H 28 H 118/97 95 03/12/21 10:25 98.1 F 136 H 30 H 160/115 97 Intake and Output 03/11/21 03/12/21 03/12/21 22:59 06:59 14:59 Other: Weight 66.678 kg Results CBC & Chem 7: 03/12/21 10:33 03/12/21 10:33 Labs: Abnormal Lab Results - Last 24 Hours (Table) 03/12/21 03/12/21 03/12/21 Range/Units 10:33 10:33 10:33 WBC 12.9 H (3.8-10.6) k/uL Hct 48.9 H (34.0-46.0) % RDW 16.8 H (11.5-15.5) % Neutrophils # 10.7 H (1.3-7.7) k/uL PT 37.0 H (9.0-12.0) sec INR 3.8 H (<1.2) APTT 35.6 H (22.0-30.0) sec D-Dimer (<0.60) mg/L FEU BUN 26 H (7-17) mg/dL Glucose 102 H (74-99) mg/dL Plasma Lactic Acid Romero (0.7-2.0) mmol/L Lactate Dehydrogenase (313-618) U/L Troponin I (0.000-0.034) ng/mL C-Reactive Protein (<1.0) mg/dL Albumin 3.2 L (3.5-5.0) g/dL Coronavirus (PCR) (Not Detectd) 03/12/21 03/12/21 03/12/21 Range/Units 10:33 10:33 10:51 WBC (3.8-10.6) k/uL Hct (34.0-46.0) % RDW (11.5-15.5) % Neutrophils # (1.3-7.7) k/uL PT (9.0-12.0) sec INR (<1.2) APTT (22.0-30.0) sec D-Dimer (<0.60) mg/L FEU BUN (7-17) mg/dL Glucose (74-99) mg/dL Plasma Lactic Acid Romero 2.2 H* (0.7-2.0) mmol/L Lactate Dehydrogenase (313-618) U/L Troponin I 0.047 H* (0.000-0.034) ng/mL C-Reactive Protein (<1.0) mg/dL Albumin (3.5-5.0) g/dL Coronavirus (PCR) Detected A (Not Detectd) 03/12/21 03/12/21 Range/Units 13:24 13:24 WBC (3.8-10.6) k/uL Hct (34.0-46.0) % RDW (11.5-15.5) % Neutrophils # (1.3-7.7) k/uL PT (9.0-12.0) sec INR (<1.2) APTT (22.0-30.0) sec D-Dimer 1.52 H (<0.60) mg/L FEU BUN (7-17) mg/dL Glucose (74-99) mg/dL Plasma Lactic Acid Romero (0.7-2.0) mmol/L Lactate Dehydrogenase 1202 H (313-618) U/L Troponin I (0.000-0.034) ng/mL C-Reactive Protein 16.4 H (<1.0) mg/dL Albumin (3.5-5.0) g/dL Coronavirus (PCR) (Not Detectd)
--- NOTE | 2021-03-12 15:16 | P.HPIM ---
History of Present Illness H&P Date: 03/12/21 (Positive Covid19) Chief Complaint: Dyspnea, shortness of breath with orthopnea, coughing Computer has functional abnormalities and I have to dictated more than once. Final diagnosis #1 Covid pneumonia and bronchitis, patient never vaccinated before and her Covid test was -1 week ago. #2 lactic acid elevation probably due to her hypoxemia. #3 acute hypoxic respiratory failure on the top of chronic with the need of high flow oxygen. #4 leukocytosis secondary to the above #5 atrial fibrillation with RVR. #6 abnormal troponin. #7 coronary artery disease atherosclerotic heart disease, impaired ejection fraction 45%, left ventricular hypertrophy, grade 2 diastolic dysfunction Left at 10 AM severely dilated dictation more than 40 mL per meter square, mild aortic stenosis, mitral regurg, tricuspid regurg, pulmonary hypertension. #8 hypertension with hypertensive heart disease. #9 urinary incontinence. #10 hyperlipidemia. #11 on anticoagulant warfarin chronically. #12 degenerative arthritis of the joint Plan: #1 consultation with the pulmonary and cardiology for evaluation and treatment #2 I discussed with the pharmacy inpatient and they stated that her hospital protocol the start of Remdesivir as to be ordered through the pulmonary or the infectious disease We already obtain the consult with the pulmonary Dr. Childress and will leave it up to Dr. Childress and the pulmonary group. Patient already on dexamethasone. And because of the underlying suspicious of infection and pneumonia with the leukocytosis with started patient on Rocephin 1 g every 12 hour. And resuming her medication discussed with the nurse in the emergency room and it is no improvement on the atrial fib may need to call the cardiology for evaluation and treatment. Past Medical History Past Medical History: Atrial Fibrillation, Chest Pain / Angina, Heart Failure, COPD, CVA/TIA, Hyperlipidemia, Hypertension, Pneumonia, Renal Disease Additional Past Medical History / Comment(s): COPD, severe MR, severe TR, moderate to severe pulmonary hypertension, chronic atrial fibrillation, hypertension, hyperlipidemia, history of hypercoagulability and and the patient has been maintained on anticoagulation with warfarin, abdominal hernia, diverticulosis and previous history of diverticulitis, history of urinary incontinence, hypertension, history of CVA History of Any Multi-Drug Resistant Organisms: None Reported Past Surgical History: Adenoidectomy, Appendectomy, Breast Surgery, Heart Catheterization, Hysterectomy, Tonsillectomy Additional Past Surgical History / Comment(s): CATARACTS-LENS IMPLANTS, CYSTOCELE/RECTOCELE AND HOLE IN BOWEL REPAIRED, LT HAND THUMB SX, BREAST BIOPSY- NEG, 4 cm AAA, L little toe bone removed, hammer toe surgery, Breast biopsy 12/24 Past Anesthesia/Blood Transfusion Reactions: No Reported Reaction Past Psychological History: No Psychological Hx Reported Smoking Status: Never smoker Past Alcohol Use History: None Reported Past Drug Use History: None Reported - Past Family History Father Family Medical History: Cancer, Myocardial Infarction ([place]) Additional Family Medical History / Comment(s): ANEURYSMS, BONE CA. AGE 75 FROM ANEURYSM IN HEAD Mother Family Medical History: Congestive Heart Failure (CHF) Additional Family Medical History / Comment(s): AT AGE 84 Medications and Allergies Home Medications Medication Instructions Recorded Confirmed Type allopurinoL [Zyloprim] 100 mg PO DAILY 05/27/19 03/12/21 History Ezetimibe/Simvastatin [Vytorin 1 tab PO DAILY 09/10/19 03/12/21 History 10-10 mg] Tolterodine Tartrate [Detrol LA] 2 mg PO DAILY 08/14/20 03/12/21 History Warfarin [Coumadin] 1 mg PO MOTUTHFR@1800 08/14/20 03/12/21 History Ipratropium-Albuterol Nebulize 3 ml INHALATION RT-QID ml 08/20/20 03/12/21 Rx [Duoneb 0.5 mg-3 mg/3 ml Soln] Budesonide [Pulmicort] 0.5 mg INHALATION RT-BID 12/05/20 03/12/21 History Diltiazem Oral [Cardizem Oral] 60 mg PO BID 01/19/21 03/12/21 History Metoprolol Tartrate [Lopressor] 12.5 mg PO TID 01/19/21 03/12/21 History Warfarin [Coumadin] 1.5 mg PO SUWESA@1800 01/19/21 03/12/21 History Furosemide [Lasix] 20 mg PO DAILY 03/12/21 03/12/21 History predniSONE See Taper PO DIRECTED 03/12/21 03/12/21 History Allergies Allergy/AdvReac Type Severity Reaction Status Date / Time No Known Allergies Allergy Verified 03/12/21 10:30 Physical Exam Vitals: Vital Signs Temp Pulse Resp BP Pulse Ox 03/12/21 13:55 117 H 28 H 153/106 98 03/12/21 12:00 123 H 28 H 150/105 95 03/12/21 11:30 128 H 28 H 158/110 96 03/12/21 11:00 122 H 28 H 158/110 95 03/12/21 10:36 137 H 28 H 118/97 95 03/12/21 10:25 98.1 F 136 H 30 H 160/115 97 Intake and Output 03/12/21 03/12/21 03/12/21 06:59 14:59 22:59 Other: Weight 66.678 kg Results CBC & Chem 7: 03/12/21 10:33 03/12/21 10:33 Labs: Abnormal Lab Results - Last 24 Hours (Table) 03/12/21 03/12/21 03/12/21 Range/Units 10:33 10:33 10:33 WBC 12.9 H (3.8-10.6) k/uL Hct 48.9 H (34.0-46.0) % RDW 16.8 H (11.5-15.5) % Neutrophils # 10.7 H (1.3-7.7) k/uL PT 37.0 H (9.0-12.0) sec INR 3.8 H (<1.2) APTT 35.6 H (22.0-30.0) sec D-Dimer (<0.60) mg/L FEU BUN 26 H (7-17) mg/dL Glucose 102 H (74-99) mg/dL Plasma Lactic Acid Romero (0.7-2.0) mmol/L Lactate Dehydrogenase (313-618) U/L Troponin I (0.000-0.034) ng/mL C-Reactive Protein (<1.0) mg/dL Albumin 3.2 L (3.5-5.0) g/dL Coronavirus (PCR) (Not Detectd) 03/12/21 03/12/21 03/12/21 Range/Units 10:33 10:33 10:51 WBC (3.8-10.6) k/uL Hct (34.0-46.0) % RDW (11.5-15.5) % Neutrophils # (1.3-7.7) k/uL PT (9.0-12.0) sec INR (<1.2) APTT (22.0-30.0) sec D-Dimer (<0.60) mg/L FEU BUN (7-17) mg/dL Glucose (74-99) mg/dL Plasma Lactic Acid Romero 2.2 H* (0.7-2.0) mmol/L Lactate Dehydrogenase (313-618) U/L Troponin I 0.047 H* (0.000-0.034) ng/mL C-Reactive Protein (<1.0) mg/dL Albumin (3.5-5.0) g/dL Coronavirus (PCR) Detected A (Not Detectd) 03/12/21 03/12/21 Range/Units 13:24 13:24 WBC (3.8-10.6) k/uL Hct (34.0-46.0) % RDW (11.5-15.5) % Neutrophils # (1.3-7.7) k/uL PT (9.0-12.0) sec INR (<1.2) APTT (22.0-30.0) sec D-Dimer 1.52 H (<0.60) mg/L FEU BUN (7-17) mg/dL Glucose (74-99) mg/dL Plasma Lactic Acid Romero (0.7-2.0) mmol/L Lactate Dehydrogenase 1202 H (313-618) U/L Troponin I (0.000-0.034) ng/mL C-Reactive Protein 16.4 H (<1.0) mg/dL Albumin (3.5-5.0) g/dL Coronavirus (PCR) (Not Detectd)
[2021-03-12] MEDS: DILTIAZEM 125 MG in SODIUM CHLORIDE 0.9% 100 ML IV SCH (15:37)
[2021-03-12] MEDS ORDERED: IPRATROPIUM-ALBUTEROL 3 ML NEB INHALATION SCH (16:00)
[2021-03-12] MEDS: METOPROLOL TARTRATE 12.5 MG TAB PO SCH ×2 (17:32→21:46)
[2021-03-12] MEDS ORDERED: WARFARIN 0.5 MG TAB PO ONE (18:00)
[2021-03-12] MEDS ORDERED: REMDESIVIR 200 MG in SODIUM CHLORIDE 0.9% 250 ML IVPB ONE (18:00)
[2021-03-12] MEDS: ALBUTEROL HFA INHALER INHALATION SCH ×2 (18:26→20:45)
[2021-03-12] MEDS ORDERED: BUDESONIDE 0.5 MG/2 ML NEBU INHALATION SCH (20:00)
[2021-03-12 20:21] LABS: Glucose,Whole Blood 274 mg/dL (75-99)
[2021-03-12] MEDS: FLUTICASONE 110 MCG INHALER INHALATION SCH (20:46)
[2021-03-12] MEDS: DEXAMETHASONE SOD PHOSPHATE 10 MG/ML 1 ML VIAL IVP SCH (21:47)
[2021-03-12] MEDS: INSULIN ASPART (NovoLOG) 100 UNIT/ML VIAL SQ SCH (21:48)
[2021-03-13 01:54] LABS: Glucose,Whole Blood 160 mg/dL (75-99)
[2021-03-13] MEDS: DILTIAZEM 125 MG in SODIUM CHLORIDE 0.9% 100 ML IV SCH (02:23)
[2021-03-13 05:54] LABS: Glucose,Whole Blood 131 mg/dL (75-99)
[2021-03-13] MEDS: INSULIN ASPART (NovoLOG) 100 UNIT/ML VIAL SQ SCH ×4 (05:59→20:56)
[2021-03-13] MEDS: FLUTICASONE 110 MCG INHALER INHALATION SCH ×3 (07:50→23:49)
[2021-03-13] MEDS: ALBUTEROL HFA INHALER INHALATION SCH ×5 (07:50→23:49)
[2021-03-13] MEDS: TIOTROPIUM 2.5 MCG INHALER INHALATION SCH (07:50)
[2021-03-13 08:35] LABS: INR 3.9 (<1.2); Prothrombin Time 37.6 sec (9.0-12.0)
[2021-03-13] MEDS ORDERED: SIMVASTATIN PO SCH (09:00)
[2021-03-13] MEDS ORDERED: EZETIMIBE PO SCH (09:00)
[2021-03-13] MEDS: EZETIMIBE 10 MG TAB PO SCH (10:03)
[2021-03-13] MEDS: ATORVASTATIN 10 MG TAB PO SCH (10:04)
[2021-03-13] MEDS: CHOLECALCIFEROL 25 MCG (1000 IU) TABLET PO SCH (10:04)
[2021-03-13] MEDS: DILTIAZEM ORAL 60 MG TAB PO SCH ×2 (10:04→20:56)
[2021-03-13] MEDS: allopurinoL 100 MG TAB PO SCH (10:04)
[2021-03-13] MEDS: FUROSEMIDE 20 MG TAB PO SCH (10:04)
[2021-03-13] MEDS: METOPROLOL TARTRATE 25 MG TAB PO SCH ×3 (10:04→20:56)
[2021-03-13] MEDS: ZINC SULFATE 220 MG CAP PO SCH (10:04)
[2021-03-13] MEDS: DEXAMETHASONE SOD PHOSPHATE 10 MG/ML 1 ML VIAL IVP SCH ×2 (10:04→20:56)
[2021-03-13] MEDS: ASCORBIC ACID 500 MG TAB PO SCH (10:06)
--- NOTE | 2021-03-13 10:41 | P.CRDCN ---
History of Present Illness Consult date: 03/13/21 History of present illness: CHIEF COMPLAINT: A. fib with RVR HISTORY OF PRESENT ILLNESS: This is a 85-year-old female with a past medical history significant for persistent atrial fibrillation, hyperlipidemia, hypertension, peripheral vascular disease, and former nicotine dependence. Patient follows in the office with Dr. Rendon. We have been asked to see the patient in consultation for afib with RVR. Patient presented to the hospital with a chief complaint of shortness of breath. She was being treated for pneumonia on an outpatient basis. She was found to be positive for Covid. Patient was found to be in afib with RVR upon presentation to the hospital. She was started on IV Cardizem with improvement in her heart rate into the 80s. She denies chest pain or pressure. She reports shortness of breath. She is on 5 L nasal cannula with oxygen saturations greater than 92%. Blood pressure 137/72. She is afebrile. DIAGNOSTICS: EKG reveals A. fib with RVR Chest xray correlate for pneumonia, interstitial edema, and CHF. There may be underlying COPD. Laboratory data: WBC 12.9. Hemoglobin 15.4. Platelet count 248. INR 3.9. D- dimer 1.52. Sodium 137. Potassium 3.9. BUN 26. Creatinine 0.82. Troponin 0.047. 0.031. ProBNP 2810. Current home cardiac medications include Coumadin 1 mg on Wednesday and 1.5 mg on Wednesday and Wednesday, metoprolol tartrate 12.5 mg 3 times a day, Lasix 20 mg daily, Cardizem 60 mg twice a day, and Vytorin 10-10mg daily Echocardiogram from November 2019 reveals ejection fraction 45%, mild concentric hypertrophy, global LV hypokinesis, moderate to severe mitral regurgitation, moderate to severe tricuspid regurgitation Patient underwent Lexiscan stress test and September 2018 which was negative for stress-induced ischemia REVIEW OF SYSTEMS: Thorough review of systems not completed secondary to limited sole luation/examination due to Covid19 PHYSICAL EXAM: Thorough physical exam not completed secondary to limited evaluation/examination due to Covid19 ASSESSMENT: Shortness of breath Covid 19 pneumonia Abnormal troponin, likely secondary to above Acute hypoxic respiratory failure Chronic persistent atrial fibrillation with RVR Coumadin coagulopathy COPD Chronic hypoxic respiratory failure on home oxygen Chronic diastolic congestive heart failure, EF 45% in 2020 Hypertension Hyperlipidemia Peripheral vascular disease Former nicotine dependence PLAN: Obtain 2D echo to assess cardiac structure and function Obtain additional troponin level Discontinue IV cardizem Resume home dose of oral cardizem Resume metoprolol. Increase dose to 25mg TID Hold Coumadin. Monitor INR. Further recommendations pending patient course Nurse practitioner note has been reviewed by physician. Signing provider agrees with the documented findings, assessment, and plan of care. Past Medical History Past Medical History: Atrial Fibrillation, Chest Pain / Angina, Heart Failure, COPD, CVA/TIA, Hyperlipidemia, Hypertension, Pneumonia, Renal Disease Additional Past Medical History / Comment(s): COPD, severe MR, severe TR, moderate to severe pulmonary hypertension, chronic atrial fibrillation, hypertension, hyperlipidemia, history of hypercoagulability and and the patient has been maintained on anticoagulation with warfarin, abdominal hernia, diverticulosis and previous history of diverticulitis, history of urinary incontinence, hypertension, history of CVA History of Any Multi-Drug Resistant Organisms: None Reported Past Surgical History: Adenoidectomy, Appendectomy, Breast Surgery, Heart Catheterization, Hysterectomy, Tonsillectomy Additional Past Surgical History / Comment(s): CATARACTS-LENS IMPLANTS, CYSTOCELE/RECTOCELE AND HOLE IN BOWEL REPAIRED, LT HAND THUMB SX, BREAST BIOPSY- NEG, 4 cm AAA, L little toe bone removed, hammer toe surgery, Breast biopsy 12/24 Past Anesthesia/Blood Transfusion Reactions: No Reported Reaction Smoking Status: Never smoker - Past Family History Father Family Medical History: Cancer, Myocardial Infarction ([place]) Additional Family Medical History / Comment(s): ANEURYSMS, BONE CA. AGE 75 FROM ANEURYSM IN HEAD Mother Family Medical History: Congestive Heart Failure (CHF) Additional Family Medical History / Comment(s): AT AGE 84 Medications and Allergies Home Medications Medication Instructions Recorded Confirmed Type allopurinoL [Zyloprim] 100 mg PO DAILY 05/27/19 03/12/21 History Ezetimibe/Simvastatin [Vytorin 1 tab PO DAILY 09/10/19 03/12/21 History 10-10 mg] Tolterodine Tartrate [Detrol LA] 2 mg PO DAILY 08/14/20 03/12/21 History Warfarin [Coumadin] 1 mg PO MOTUTHFR@1800 08/14/20 03/12/21 History Ipratropium-Albuterol Nebulize 3 ml INHALATION RT-QID ml 08/20/20 03/12/21 Rx [Duoneb 0.5 mg-3 mg/3 ml Soln] Budesonide [Pulmicort] 0.5 mg INHALATION RT-BID 12/05/20 03/12/21 History Diltiazem Oral [Cardizem Oral] 60 mg PO BID 01/19/21 03/12/21 History Metoprolol Tartrate [Lopressor] 12.5 mg PO TID 01/19/21 03/12/21 History Warfarin [Coumadin] 1.5 mg PO SUWESA@1800 01/19/21 03/12/21 History Furosemide [Lasix] 20 mg PO DAILY 03/12/21 03/12/21 History predniSONE See Taper PO DIRECTED 03/12/21 03/12/21 History Allergies Allergy/AdvReac Type Severity Reaction Status Date / Time No Known Allergies Allergy Verified 03/12/21 10:30 Physical Exam Vitals: Vital Signs Temp Pulse Pulse Resp BP BP Pulse Ox 03/13/21 04:00 97.2 F L 87 22 137/72 91 L 03/12/21 23:53 98.1 F 80 24 136/80 93 L 03/12/21 20:00 97.4 F L 98 24 134/77 92 L 03/12/21 16:00 97.9 F 106 H 22 145/82 93 L 03/12/21 15:30 118 H 20 128/86 93 L 03/12/21 15:00 124 H 20 123/101 92 L 03/12/21 14:30 118 H 20 144/86 97 03/12/21 14:00 125 H 106 H 22 153/106 98 03/12/21 13:55 117 H 28 H 153/106 98 03/12/21 12:00 123 H 28 H 150/105 95 03/12/21 11:30 128 H 28 H 158/110 96 03/12/21 11:00 122 H 28 H 158/110 95 03/12/21 10:36 137 H 28 H 118/97 95 Intake and Output 03/12/21 03/13/21 03/13/21 22:59 06:59 14:59 Intake Total 118 107.667 240 Output Total 1450 Balance -1332 107.667 240 Intake: Intake, IV Titration 107.667 Amount Diltiazem 125 mg In 107.667 Sodium Chloride 0.9% 100 ml @ 10 MG/HR 10 mls/hr IV .[id number] [facility] Rx#: [id number] Oral 118 240 Output: Urine 1450 Other: Voiding Method Indwelling Catheter Indwelling Catheter Weight 71.5 kg 74 kg Results 03/12/21 10:33 03/12/21 10:33 Cardiac Enzymes 03/12/21 03/12/21 03/12/21 Range/Units 10:33 10:33 13:24 AST 30 (14-36) U/L Lactate Dehydrogenase 1202 H (313-618) U/L Troponin I 0.047 H* (0.000-0.034) ng/mL 03/13/21 Range/Units 07:46 AST (14-36) U/L Lactate Dehydrogenase (313-618) U/L Troponin I 0.031 (0.000-0.034) ng/mL Coagulation 03/12/21 03/13/21 Range/Units 10:33 07:46 PT 37.0 H 37.6 H (9.0-12.0) sec APTT 35.6 H (22.0-30.0) sec CBC 03/12/21 Range/Units 10:33 WBC 12.9 H (3.8-10.6) k/uL RBC 5.31 (3.80-5.40) m/uL Hgb 15.4 (11.4-16.0) gm/dL Hct 48.9 H (34.0-46.0) % Plt Count 248 (150-450) k/uL Comprehensive Metabolic Panel 03/12/21 Range/Units 10:33 Sodium 137 (137-145) mmol/L Potassium 3.9 (3.5-5.1) mmol/L Chloride 101 (98-107) mmol/L Carbon Dioxide 28 (22-30) mmol/L BUN 26 H (7-17) mg/dL Creatinine 0.82 (0.52-1.04) mg/dL Glucose 102 H (74-99) mg/dL Calcium 8.4 (8.4-10.2) mg/dL AST 30 (14-36) U/L ALT 23 (4-34) U/L Alkaline Phosphatase 97 (38-126) U/L Total Protein 6.4 (6.3-8.2) g/dL Albumin 3.2 L (3.5-5.0) g/dL Current Medications Generic Name Dose Route Start Last Admin Trade Name Geovani PRN Reason Stop Dose Admin Albuterol Sulfate 2 puff 03/12/21 16:00 03/13/21 07:50 Albuterol Hfa Inhaler INHALATION 2 puff RT-QID GENIE Administration Allopurinol 100 mg 03/13/21 09:00 Allopurinol 100 Mg Tab PO DAILY GENIE Ascorbic Acid 1,000 mg 03/13/21 09:00 Ascorbic Acid 500 Mg Tab PO DAILY [facility] Atorvastatin Calcium 10 mg 03/13/21 09:00 Atorvastatin 10 Mg Tab PO DAILY GENIE Cholecalciferol 25 mcg 03/13/21 09:00 Cholecalciferol 25 Mcg (1000 Iu) Tablet PO DAILY GENIE Dexamethasone Sodium Phosphate 6 mg 03/12/21 21:00 12 21:47 Dexamethasone Sod Phosphate 10 Mg/Ml 1 Ml Vial IVP 6 mg BID GENIE Administration Diltiazem HCl 60 mg 03/13/21 09:00 Diltiazem Oral 60 Mg Tab PO BID GENIE Ezetimibe 10 mg 03/13/21 09:00 Ezetimibe 10 Mg Tab PO DAILY GENIE Fluticasone Propionate 2 puff 03/12/21 20:00 03/13/21 07:50 Fluticasone 110 Mcg Inhaler INHALATION 2 puff RT-BID GENIE Administration Furosemide 20 mg 03/12/21 13:15 03/12/21 13:42 Furosemide 20 Mg Tab PO Not Given DAILY GENIE Sodium Chloride 1,000 mls @ 100 mls/hr 03/12/21 12:00 03/12/21 21:48 Saline 0.9% IV 100 mls/hr .Q10H GENIE Administration Remdesivir 100 mg/ Sodium 250 mls @ 250 mls/hr 03/13/21 18:00 Chloride IVPB 03/16/21 18:59 DAILY@1800 GENIE Ceftriaxone Sodium 1 gm/ 50 mls @ 100 mls/hr 03/12/21 02:00 03/13/21 01:45 Sodium Chloride IVPB 100 mls/hr Q12H GENIE Administration Insulin Aspart 0 unit 03/12/21 21:00 03/13/21 05:59 Insulin Aspart (Novolog) 100 Unit/Ml Vial SQ Not Given ACHS [facility] Protocol Metoprolol Tartrate 25 mg 03/13/21 09:00 Metoprolol Tartrate 25 Mg Tab PO TID [facility] Miscellaneous Information 0 each 03/12/21 13:45 Warfarin Per Pharmacy MISCELLANE DIRECTED PRN INR Naloxone HCl 0.2 mg 03/12/21 11:50 Naloxone 0.4 Mg/Ml 1 Ml Vial IV Q2M PRN Opioid Reversal Tiotropium [place] 1 puff 03/13/21 08:00 03/13/21 07:50 Tiotropium 2.5 Mcg Inhaler INHALATION 1 puff RT-DAILY [facility] Administration Warfarin Sodium 0 mg 03/13/21 18:00 Warfarin 0.5 Mg Tab PO 03/13/21 18:01 ONCE ONE Zinc Sulfate 220 mg 03/13/21 09:00 Zinc Sulfate 220 Mg Cap PO DAILY [facility] Intake and Output 03/12/21 03/13/21 03/13/21 22:59 06:59 14:59 Intake Total 118 107.667 240 Output Total 1450 Balance -1332 107.667 240 Intake: Intake, IV Titration 107.667 Amount Diltiazem 125 mg In 107.667 Sodium Chloride 0.9% 100 ml @ 10 MG/HR 10 mls/hr IV .[id number] [facility] Rx#: [id number] Oral 118 240 Output: Urine 1450 Other: Voiding Method Indwelling Catheter Indwelling Catheter Weight 71.5 kg 74 kg 03/12/21 10:33 03/12/21 10:33
[2021-03-13] MEDS: SODIUM CHLORIDE 0.9% 1,000 ML IV SCH ×2 (11:07→17:08)
[2021-03-13 11:51] LABS: Glucose,Whole Blood 185 mg/dL (75-99)
--- NOTE | 2021-03-13 12:29 | ECHOF ---
Referral Reason:LV function MEASUREMENTS -------- HEIGHT: 162.6 cm WEIGHT: 73.9 kg BP: 137/72 IVSd: 1.2 cm (0.6 - 1.1) LVIDd: 5.1 cm (3.9 - 5.3) LVPWd: 1.2 cm (0.6 - 1.1) EDV(Teich): 123 ml IVSs: 1.9 cm LVIDs: 3.9 cm LVPWs: 1.7 cm %IVS Thck: 59 % ESV(Teich): 65 ml EF(Teich): 48 % %FS: 24 % SV(Teich): 59 ml LVOT Diam: 2.1 cm LA Diam: 3.6 cm (2.7 - 3.8) RVIDd: 2.1 cm (< 3.3) LALs A4C: 4.8 cm LAAs A4C: 15.1 cm LAESV A-L A4C: 41 ml LAESV MOD A4C: 38 ml LALs A2C: 7.9 cm LAAs A2C: 24.2 cm LAESV A-L A2C: 63 ml LAESV MOD A2C: 61 ml LAESV(A-L): 65 ml LAESV Index (A-L): 36.44 ml/m Ao Diam: 3.2 cm (2.0 - 3.7) AV Cusp: 1.9 cm (1.5 - 2.6) EPSS: 0.9 cm MV DecT: 129 ms MV PHT: 44 ms MVA By PHT: 5.0 cm LVOT Vmax: 0.72 m/s LVOT maxP.05 mmHg AV Vmax: 1.42 m/s AV maxP.06 mmHg [place] Vmax, Pt: 1.7 cm AV Vmax: 1.55 m/s AV Vmean: 0.95 m/s AV maxP.60 mmHg AV meanP.12 mmHg AV Env.Ti: 277 ms AV VTI: 26.3 cm [place] Vmax, Pt: 1.5 cm TR Vmax: 2.69 m/s TR maxP.00 mmHg RAP: 5.00 mmHg RVSP: 34.00 mmHg MV EF SLOPE: 171.95 mm/s (70 - 150) MV EXCURSION: 12.49 mm (> 18.000) FINDINGS -------- Atrial fibrillation. This was a technically adequate study. The left ventricular size is normal. There is borderline concentric left ventricular hypertrophy. Overall left ventricular systolic function is mild-moderately impaired with, an EF between 40 - 45 % . The right ventricle is normal in size. LA is moderately dilated 34-39 ml/m2 The right atrium is normal in size. Interatrial and interventricular septum intact. There is mild aortic valve sclerosis. There is mild aortic stenosis present. Peak/mean gradient a cross the Aortic Valve is 9.60mmHg / 4.12mmHg. The mitral valve leaflets are mildly thickened. Mild mitral annular calcification present. Mild-t o-moderate mitral regurgitation is present. Trace tricuspid regurgitation present. There is mild pulmonary hypertension. The right ventricula r systolic pressure, as measured by Doppler, is 34.00mmHg. Trace/mild (physiologic) pulmonic regurgitation. The aortic root size is normal. Normal inferior vena cava with normal inspiratory collapse consistent with estimated right atrial pre ssure of 5 mmHg. There is no pericardial effusion. CONCLUSIONS -------- 1. The left ventricular size is normal. 2. There is borderline concentric left ventricular hypertrophy. 3. Overall left ventricular systolic function is mild-moderately impaired with, an EF between 40 - 45 %. 4. LA is moderately dilated 34-39 ml/m2 5. There is mild aortic valve sclerosis. 6. There is mild aortic stenosis present. 7. Peak/mean gradient across the Aortic Valve is 9.60mmHg / 4.12mmHg. 8. The mitral valve leaflets are mildly thickened. 9. Mild mitral annular calcification present. 10. [id number] mitral regurgitation is present. 11. Trace tricuspid regurgitation present. 12. There is mild pulmonary hypertension. 13. The right ventricular systolic pressure, as measured by Doppler, is 34.00mmHg. 14. Trace/mild (physiologic) pulmonic regurgitation. 15. There is no pericardial effusion. [employer] EXPERT: Elizabeth Schultz RDCS
--- NOTE | 2021-03-13 13:46 | P.PN ---
Subjective Progress Note Date: 03/13/21 Principal diagnosis: COVID-19 pneumonia This is an 85-year-old female patient who has a history of gout, atrial fibrillation anticoagulated with warfarin, hypertension, COPD, hyperlipidemia. She had been seen here approximately one month ago with increasing shortness of breath cough and congestion. She she was treated for COPD exacerbation. She tested negative for COVID-19 at that time. Throughout the past month she has been on antibiotics without much improvement. 3-4 days ago she had worsening shortness of breath, cough and congestion. She presented here to the emergency room today for the same. As x-ray reveals bilateral patchy groundglass opacities as well as interstitium and possible underlying edema. Evidence of COPD. Is currently on a nonrebreather mask with O2 saturation 95%. She remains in atrial fibrillation with heart rate in the 120s. She is tachypneic at 28. Afebrile. White count 12.9. Hemoglobin 15.4. INR 3.8. Sodium 137. Potassium 3.9. Creatinine 0.82. Lactic acid 2.2. Troponin 0.047. ProBNP 2810. AST 30. ALT 23. Aldrich virus by PCR positive. She's been initiated on Decadron. 0.9 normal sinus 130 MLS per hour. The patient is seen today 03/13/2021 in follow-up on the selective care unit. She is currently sitting up in bed. Having lunch. She is still requiring 5 L high flow nasal cannula to maintain O2 saturations in the high 80s and low 90s. INR 3.9. Troponins negative 2. Glucose 185. Remains on Decadron, vitamin supplements. Anticoagulated with warfarin. This is day #2 of Remdesivir. She remains on ceftriaxone. No positive cultures. Objective - Vital Signs Vital signs: Vital Signs Temp 98.3 F 03/13/21 12:00 Pulse 93 03/13/21 12:00 Resp 22 03/13/21 13:36 BP 132/69 03/13/21 12:00 Pulse Ox 93 L 03/13/21 13:36 Intake & Output 03/12/21 03/13/21 03/13/21 18:59 06:59 18:59 Intake Total 118 107.667 590 Output Total 850 600 Balance -732 -492.333 590 Weight 71.5 kg 74 kg Intake: IV 90 Invasive Line 1 20 Invasive Line 2 20 cefTRIAXone 1 gm In 50 Sodium Chloride 0.9% 50 ml @ 100 mls/hr IVPB Q12H [facility] Rx#:[id number] Intake, IV Titration 107.667 Amount Diltiazem 125 mg In 107.667 Sodium Chloride 0.9% 100 ml @ 10 MG/HR 10 mls/hr IV .[id number] [facility] Rx#: [id number] Oral 118 500 Output: Urine 850 600 Other: Voiding Method Indwelling Catheter Indwelling Catheter Indwelling Catheter - Exam GENERAL EXAM: Alert, 85-year-old female patient, on 5 L/m per nasal cannula, in mild respiratory distress. HEAD: Normocephalic. EYES: Normal reaction of pupils, equal size. NOSE: Clear with pink turbinates. THROAT: No erythema or exudates. NECK: No masses, no JVD. CHEST: No chest wall deformity. LUNGS: Equal air entry with crackles in the bilateral bases. CVS: S1 and S2 normal with no audible murmur, regular rhythm. ABDOMEN: No hepatosplenomegaly, normal bowel sounds, no guarding or rigidity. SPINE: No scoliosis or deformity SKIN: No rashes CENTRAL NERVOUS SYSTEM: No focal deficits, tone is normal in all 4 extremities. EXTREMITIES: There is no peripheral edema. No clubbing, no cyanosis. Peripheral pulses are intact. - Labs CBC & Chem 7: 03/12/21 10:33 03/12/21 10:33 Labs: Abnormal Lab Results - Last 24 Hours (Table) 03/12/21 03/12/21 03/12/21 Range/Units 13:24 13:24 20:19 PT (9.0-12.0) sec INR (<1.2) D-Dimer 1.52 H (<0.60) mg/L FEU POC Glucose (mg/dL) 274 H (75-99) mg/dL Ferritin 1433.0 H (10.0-291.0) ng/mL Lactate Dehydrogenase 1202 H (313-618) U/L C-Reactive Protein 16.4 H (<1.0) mg/dL 03/13/21 03/13/21 03/13/21 Range/Units 01:52 05:52 07:46 PT 37.6 H (9.0-12.0) sec INR 3.9 H (<1.2) D-Dimer (<0.60) mg/L FEU POC Glucose (mg/dL) 160 H 131 H (75-99) mg/dL Ferritin (10.0-291.0) ng/mL Lactate Dehydrogenase (313-618) U/L C-Reactive Protein (<1.0) mg/dL 03/13/21 Range/Units 11:47 PT (9.0-12.0) sec INR (<1.2) D-Dimer (<0.60) mg/L FEU POC Glucose (mg/dL) 185 H (75-99) mg/dL Ferritin (10.0-291.0) ng/mL Lactate Dehydrogenase (313-618) U/L C-Reactive Protein (<1.0) mg/dL Assessment and Plan Assessment: 1 Acute hypoxemic respiratory failure secondary to acute COVID-19 pneumonia and possible on underlying congestive heart failure with interstitial edema and currently on 5 L nasal cannula. Not vaccinated. Initiated on Remdesivir 2 Atrial fibrillation with a rapid ventricular response, anti-coagulated with warfarin and INR 3.9 3 History of diastolic and systolic congestive heart failure 4 History of chronic obstructive pulmonary disease 5 Chronic hypoxic respiratory failure on 2 L of nasal cannula at home 6 Hypertension 7 Hyperlipidemia Plan: The patient was seen and evaluated today Day #2 of Remdesivir Continue warfarin, Decadron, vitamin supplements Titrate the FiO2 as tolerated DO NOT RESUSCITATE/DO NOT INTUBATE CODE STATUS We will continue to follow I, the cosigning physician, performed a history & physical examination of the patient. Lungs sounds with coarse crackles in the bilateral bases. Maintaining good O2 saturations in the 90s on IV liters per minute per nasal cannula. I discussed the assessment and plan of care with my nurse practitioner, Rosa Velasquez. I attest to the above note as dictated by her.
--- NOTE | 2021-03-13 15:48 | P.PN ---
Subjective Progress Note Date: 03/13/21 (Covid 19 pneumonia) Principal diagnosis: Diagnosis: #1 acute respiratory hypoxemic failure on the top of chronic #2 Covid19 pneumonia #3 congestive heart failure acute on the top of chronic associated with systolic and diastolic. #4 COPD with acute exacerbation. #5 atrial fibrillation chronic with acute RVR intermittently on anticoagulant. #6 patient refused Covid vaccination as outpatient. Progress note date of service 03/13/[address] Barber. Patient seen evaluated [id number] in her room 361 mental health coordinator floor. Patient still in respiratory distress with the respiratory rate 30 and short of breath with answering simple question using the extra respiratory muscles. On the exam: Temperature 98.3 F oral, pulse rate 93/m, respiratory rate 30/m. Blood pressure 132/69, had oxygen saturation 84 on 5 L/m. Blood glucose ranging POC [id number]. Her troponin currently is normalized [id number]. On Covid protocol:Remdesivir IV started yesterday loading dose and followed with 100 mg daily ordered by pulmonary. Dexamethasone 6 mg IV twice a day admitted to adjustment of her inhalation therapy and she is on currently Flovent 2 puffs twice a day and albuterol sulfate them to lean HFA inhaler 2 puffs 4 times a day. Patient is conscious alert oriented and discussed with her her current medical problem and her resistant to vaccination for Covid. On exam: The head was normocephalic and atraumatic and the pupil was equal reactive conjunctiva was pink sclera was nonicteric and that she had some hearing deficit She had natural teeth. Neck was supple no JVD no thyromegaly no lymphadenopathy trachea midline. Chest: She had inspiratory and expiratory rhonchi and wheezes bilateral currently she is musical with the shortness of breath Heart currently irregular irregularities however rate is improved and controlled Abdomen soft positive bowel sounds Extremities no edema and positive pulses. Neurologically stable no lateralizing sign. Assessment: Covid19 pneumonia. Acute hypoxemic respiratory failure on the top of chronic COPD with exacerbation. Rule out pulmonary fibrosis. Diabetes mellitus type 2 currently controlled. Chronic atrial fibrillation with acute intermittent RVR. Consultation with cardiology. Congestive heart failure acute on the top of chronic systolic and diastolic. Degenerative osteoarthritis. Vitamin D deficiency. By history Planning: Discussed with the patient Continue the current medication Continue the program with the help of pulmonary and cardiology. And we will follow their recommendation. Patient still critical and prognosis is guarded Objective - Vital Signs Vital signs: Vital Signs Temp 98.3 F 03/13/21 12:00 Pulse 93 03/13/21 12:00 Resp 22 03/13/21 13:36 BP 132/69 03/13/21 12:00 Pulse Ox 93 L 03/13/21 13:36 Intake & Output 03/12/21 03/13/21 03/13/21 18:59 06:59 18:59 Intake Total 118 107.667 590 Output Total 850 600 Balance -732 -492.333 590 Weight 71.5 kg 74 kg Intake: IV 90 Invasive Line 1 20 Invasive Line 2 20 cefTRIAXone 1 gm In 50 Sodium Chloride 0.9% 50 ml @ 100 mls/hr IVPB Q12H [facility] Rx#:[id number] Intake, IV Titration 107.667 Amount Diltiazem 125 mg In 107.667 Sodium Chloride 0.9% 100 ml @ 10 MG/HR 10 mls/hr IV .[id number] [facility] Rx#: [id number] Oral 118 500 Output: Urine 850 600 Other: Voiding Method Indwelling Catheter Indwelling Catheter Indwelling Catheter - Labs CBC & Chem 7: 03/12/21 10:33 03/12/21 10:33 Labs: Abnormal Lab Results - Last 24 Hours (Table) 03/12/21 03/12/21 03/13/21 Range/Units 13:24 20:19 01:52 PT (9.0-12.0) sec INR (<1.2) POC Glucose (mg/dL) 274 H 160 H (75-99) mg/dL Ferritin 1433.0 H (10.0-291.0) ng/mL 03/13/21 03/13/21 03/13/21 Range/Units 05:52 07:46 11:47 PT 37.6 H (9.0-12.0) sec INR 3.9 H (<1.2) POC Glucose (mg/dL) 131 H 185 H (75-99) mg/dL Ferritin (10.0-291.0) ng/mL
[2021-03-13 17:05] LABS: Glucose,Whole Blood 229 mg/dL (75-99)
[2021-03-13] MEDS: FUROSEMIDE 10 MG/ML 4 ML VIAL IV SCH (17:24)
[2021-03-13] MEDS ORDERED: WARFARIN 0.5 MG TAB PO ONE (18:00)
[2021-03-13] MEDS ORDERED: REMDESIVIR 100 MG in SODIUM CHLORIDE 0.9% 250 ML IVPB SCH (18:00)
[2021-03-13 20:32] LABS: Glucose,Whole Blood 206 mg/dL (75-99)
[2021-03-14 06:07] LABS: Glucose,Whole Blood 142 mg/dL (75-99)
[2021-03-14] MEDS: INSULIN ASPART (NovoLOG) 100 UNIT/ML VIAL SQ SCH ×4 (06:25→21:33)
--- NOTE | 2021-03-14 07:53 | XR ---
EXAMINATION TYPE: XR chest 1V portable DATE OF EXAM: 03/14/2021 HISTORY: Shortness of breath. COMPARISON: 03/12/2021 TECHNIQUE: Single view of the chest is submitted. FINDINGS: Demonstrated are scattered senescent parenchymal change. Scattered reticulonodular infiltrates bilaterally unchanged from prior study. The heart is stable. Hilar and mediastinal structures are within normal limits. Degenerative changes are seen of the dorsal spine. IMPRESSION: 1. Scattered reticulonodular infiltrates bilaterally unchanged from prior study.
[2021-03-14 08:52] LABS: INR 3.5 (<1.2); Prothrombin Time 33.8 sec (9.0-12.0)
[2021-03-14] MEDS: FLUTICASONE 110 MCG INHALER INHALATION SCH ×2 (08:59→19:46)
[2021-03-14] MEDS: ALBUTEROL HFA INHALER INHALATION SCH ×4 (08:59→19:46)
[2021-03-14] MEDS: TIOTROPIUM 2.5 MCG INHALER INHALATION SCH (08:59)
[2021-03-14] MEDS: EZETIMIBE 10 MG TAB PO SCH (10:06)
[2021-03-14] MEDS: DEXAMETHASONE SOD PHOSPHATE 10 MG/ML 1 ML VIAL IVP SCH ×2 (10:07→21:32)
[2021-03-14] MEDS: METOPROLOL TARTRATE 25 MG TAB PO SCH ×3 (10:07→21:32)
[2021-03-14] MEDS: ZINC SULFATE 220 MG CAP PO SCH (10:07)
[2021-03-14] MEDS: ASCORBIC ACID 500 MG TAB PO SCH (10:07)
[2021-03-14] MEDS: FUROSEMIDE 10 MG/ML 4 ML VIAL IV SCH (10:07)
[2021-03-14] MEDS: CHOLECALCIFEROL 25 MCG (1000 IU) TABLET PO SCH (10:07)
[2021-03-14] MEDS: DILTIAZEM ORAL 60 MG TAB PO SCH ×2 (10:07→21:32)
[2021-03-14] MEDS: allopurinoL 100 MG TAB PO SCH (10:08)
[2021-03-14] MEDS: ATORVASTATIN 10 MG TAB PO SCH (10:08)
--- NOTE | 2021-03-14 11:48 | P.PN ---
Subjective Progress Note Date: 03/14/21 Principal diagnosis: COVID-19 pneumonia This is an 85-year-old female patient who has a history of gout, atrial fibrillation anticoagulated with warfarin, hypertension, COPD, hyperlipidemia. She had been seen here approximately one month ago with increasing shortness of breath cough and congestion. She she was treated for COPD exacerbation. She tested negative for COVID-19 at that time. Throughout the past month she has been on antibiotics without much improvement. 3-4 days ago she had worsening shortness of breath, cough and congestion. She presented here to the emergency room today for the same. As x-ray reveals bilateral patchy groundglass opacities as well as interstitium and possible underlying edema. Evidence of COPD. Is currently on a nonrebreather mask with O2 saturation 95%. She remains in atrial fibrillation with heart rate in the 120s. She is tachypneic at 28. Afebrile. White count 12.9. Hemoglobin 15.4. INR 3.8. Sodium 137. Potassium 3.9. Creatinine 0.82. Lactic acid 2.2. Troponin 0.047. ProBNP 2810. AST 30. ALT 23. Aldrich virus by PCR positive. She's been initiated on Decadron. 0.9 normal sinus 130 MLS per hour. The patient is seen today 03/13/2021 in follow-up on the selective care unit. She is currently sitting up in bed. Having lunch. She is still requiring 5 L high flow nasal cannula to maintain O2 saturations in the high 80s and low 90s. INR 3.9. Troponins negative 2. Glucose 185. Remains on Decadron, vitamin supplements. Anticoagulated with warfarin. This is day #2 of Remdesivir. She remains on ceftriaxone. No positive cultures. The patient is seen today 03/14/2021 in follow-up on the selective care unit. She is currently sitting up in bed. Awake and alert in no acute distress. She is currently on 15 L nonrebreather mask with O2 saturations in the mid 90s. She's been afebrile. Hemodynamically stable. Chest x-ray continues to show scattered reticular nodular infiltrates bilaterally. Unchanged compared to previous. She continues with some bilateral wheezing and scattered rhonchi. She is on day #3 of her Remdesivir. Continued on Decadron and vitamin supplements. Anticoagulated with warfarin. Continued on bronchodilators. INR 3.5. Glucose 142. Objective - Vital Signs Vital signs: Vital Signs Temp 97.5 F L 03/14/21 04:19 Pulse 80 03/14/21 04:19 Resp 24 03/14/21 04:19 BP 144/90 03/14/21 04:19 Pulse Ox 96 03/14/21 04:19 Intake & Output 03/13/21 03/14/21 03/14/21 18:59 06:59 18:59 Intake Total 910 Output Total 1750 Balance 910 -1750 Intake: IV 150 Invasive Line 1 20 Invasive Line 2 20 Invasive Line 3 10 cefTRIAXone 1 gm In 100 Sodium Chloride 0.9% 50 ml @ 100 mls/hr IVPB Q12H [facility] Rx#:[id number] Oral 760 Output: Urine 1750 Uretheral (Pimentel) 1750 Other: Voiding Method Indwelling Catheter Indwelling Catheter - Exam GENERAL EXAM: Alert, 85-year-old female patient, on 15 nonrebreather mask, in mild respiratory distress. HEAD: Normocephalic. EYES: Normal reaction of pupils, equal size. NOSE: Clear with pink turbinates. THROAT: No erythema or exudates. NECK: No masses, no JVD. CHEST: No chest wall deformity. LUNGS: Equal air entry with crackles in the bilateral bases. CVS: S1 and S2 normal with no audible murmur, regular rhythm. ABDOMEN: No hepatosplenomegaly, normal bowel sounds, no guarding or rigidity. SPINE: No scoliosis or deformity SKIN: No rashes CENTRAL NERVOUS SYSTEM: No focal deficits, tone is normal in all 4 extremities. EXTREMITIES: There is no peripheral edema. No clubbing, no cyanosis. Peripheral pulses are intact. - Labs CBC & Chem 7: 03/12/21 10:33 03/12/21 10:33 Labs: Abnormal Lab Results - Last 24 Hours (Table) 03/13/21 03/13/21 03/13/21 Range/Units 11:47 16:55 20:31 PT (9.0-12.0) sec INR (<1.2) POC Glucose (mg/dL) 185 H 229 H 206 H (75-99) mg/dL 03/14/21 03/14/21 Range/Units 06:02 07:34 PT 33.8 H (9.0-12.0) sec INR 3.5 H (<1.2) POC Glucose (mg/dL) 142 H (75-99) mg/dL Assessment and Plan Assessment: 1 Acute hypoxemic respiratory failure secondary to acute COVID-19 pneumonia and possible on underlying congestive heart failure with interstitial edema and currently on 2 L nonrebreather mask. Not vaccinated. Initiated on Remdesivir 2 Atrial fibrillation with a rapid ventricular response, anti-coagulated with warfarin and INR 3.5 3 History of diastolic and systolic congestive heart failure 4 History of chronic obstructive pulmonary disease 5 Chronic hypoxic respiratory failure on 2 L of nasal cannula at home 6 Hypertension 7 Hyperlipidemia Plan: The patient was seen and evaluated today Chest x-ray reviewed Day #3 of Remdesivir Continue warfarin, Decadron, vitamin supplements Titrate the FiO2 as tolerated DO NOT RESUSCITATE/DO NOT INTUBATE CODE STATUS Follow-up labs in the a.m. We will continue to follow I, the cosigning physician, performed a history & physical examination of the patient. Lungs sounds with coarse crackles in the bilateral bases. Maintaining good O2 saturations in the 90s on 15 L nonrebreather mask. I discussed the assessment and plan of care with my nurse practitioner, Rosa Velasquez. I attest to the above note as dictated by her.
[2021-03-14 11:49] LABS: Glucose,Whole Blood 211 mg/dL (75-99)
[2021-03-14] MEDS: REMDESIVIR 100 MG in SODIUM CHLORIDE 0.9% 250 ML IVPB SCH (12:44)
--- NOTE | 2021-03-14 16:13 | P.PN ---
Subjective Progress Note Date: 03/14/21 Progress note date of service 03/14/[address] Li. Patient seen today [id number] still complaining of shortness of breath and she has high flow oxygen trying to wean her down gradually by the pulmonary and critical care. INR today 3.5 monitored by pharmacy and should not be receiving Coumadin today. Laboratories: D-dimer was elevated 1.52, lactic acid on admission was 2.2 improved to 1.4, Covid 19 marker, serum ferritin 1433, LDH 1202, troponin 0.047 mildly elevation, CRP 16.4. MT pro-BMP space 2810 abnormally high. Pro-calcitonin 0.07 normal Covid 19 positive. Oxygen saturation 97% on 15 L of oxygen high flow monitored by pulmonary. Vital sign temperature 97.7 Axillary, respiratory rate 28/m with efforts using extra respiratory muscle with the shortness of breath. Blood pressure 144/86. On exam: Patient is conscious alert oriented with the respiratory distress and shortness of breath she has a high flow oxygen. Natural teeth Severe hearing deficit and her hearing aid in the bag. Neck was supple no JVD no thyromegaly no lymphadenopathy. Trachea midline Chest: Expiratory and inspiratory wheezes and rhonchi with the shallow breathing. Heart atrial fibrillation with irregular heartbeat and underlying valvular heart disease Echocardiogram done on 03/13/2021 indicating that his ejection fraction is impaired 40-45% 50 at a.m. moderately dilated, mild aortic valve sclerosis as well as a stenosis the peak 9.60 and the mean 4.112, [id number] mitral regurgitation. Mild aortic sclerosis, pulmonary hypertension mild, trace tricuspid regurgitation, physiologic pulmonary regurgitation. Chest x-ray today indicating scattered reticular nodular infiltrate bilaterally. Abdomen: Soft positive bowel sounds no tenderness in the 4 quadrant Extremities: Currently no edema and positive pulses Assessment and plan: #1 her general condition is guarded with the multiple medical illness. #2 mild elevation of troponin cardiology following the patient, echo was done as mentioned above. #3 biventricular congestive heart failure secondary to systolic and diastolic acute" on the top of chronic. #4 Covid19 pneumonia and bronchitis. #5 COPD with exacerbation followed by pulmonary and critical care. #6 questionable added bacterial pneumonia on the top of viral pneumonia from Covid. #7 hypertension is controlled #8 history of gouty arthritis. #9 hyper lipidemia line #10 atrial fibrillation with intermittent RVR. #10 no code per patient request #11 underlying history of abdominal aortic aneurysm measuring 5.5 multiplied by 5.3 cm infrarenal fusiform large eccentric and the enteral Jermain thrombus. 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 Left upper lobe nodule measuring 1 cm. 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 And she was discharged on Coumadin after 10 days from the surgery and patient discharged on 12/23/2019. Plan and discussion, patient requested no heroic measure no carotid and she still continued to have the treatment with the inhalation therapy and medication for the Covid as well will continue monitoring her blood sugar as well and laboratory ordered for tomorrow Objective - Vital Signs Vital signs: Vital Signs Temp 97.7 F 03/14/21 07:45 Pulse 107 H 03/14/21 07:45 Resp 26 H 03/14/21 07:45 BP 163/84 03/14/21 07:45 Pulse Ox 91 L 03/14/21 07:45 Intake & Output 03/13/21 03/14/21 03/14/21 18:59 06:59 18:59 Intake Total 910 1280 Output Total 1750 Balance 910 -1750 1280 Intake: IV 150 120 Invasive Line 1 20 Invasive Line 2 20 Invasive Line 3 10 20 cefTRIAXone 1 gm In 100 100 Sodium Chloride 0.9% 50 ml @ 100 mls/hr IVPB Q12H [facility] Rx#:[id number] Intake, IV Titration 300 Amount Remdesivir 100 mg In 250 Sodium Chloride 0.9% 250 ml @ 250 mls/hr IVPB DAILY@1200 [facility] Rx#: [id number] cefTRIAXone 1 gm In 50 Sodium Chloride 0.9% 50 ml @ 100 mls/hr IVPB Q12H [facility] Rx#:[id number] Oral 760 860 Output: Urine 1750 Uretheral (Pimentel) 1750 Other: Voiding Method Indwelling Catheter Indwelling Catheter Indwelling Catheter - Labs CBC & Chem 7: 03/12/21 10:33 03/12/21 10:33 Labs: Abnormal Lab Results - Last 24 Hours (Table) 03/13/21 03/13/21 03/14/21 Range/Units 16:55 20:31 06:02 PT (9.0-12.0) sec INR (<1.2) POC Glucose (mg/dL) 229 H 206 H 142 H (75-99) mg/dL 03/14/21 03/14/21 Range/Units 07:34 11:46 PT 33.8 H (9.0-12.0) sec INR 3.5 H (<1.2) POC Glucose (mg/dL) 211 H (75-99) mg/dL
[2021-03-14 16:50] LABS: Glucose,Whole Blood 313 mg/dL (75-99)
[2021-03-14] MEDS ORDERED: WARFARIN 0.5 MG TAB PO ONE (18:00)
[2021-03-14] MEDS ORDERED: INSULIN DETEMIR (LEVEMIR) 100 UNIT/ML SYR SQ SCH (18:30)
[2021-03-14] MEDS: INSULIN DETEMIR (LEVEMIR) 100 UNIT/ML SYR SQ SCH (19:08)
[2021-03-14 21:26] LABS: Glucose,Whole Blood 173 mg/dL (75-99)
[2021-03-15 06:14] LABS: Glucose,Whole Blood 145 mg/dL (75-99)
[2021-03-15] MEDS: INSULIN ASPART (NovoLOG) 100 UNIT/ML VIAL SQ SCH ×4 (06:39→21:09)
[2021-03-15] MEDS: INSULIN DETEMIR (LEVEMIR) 100 UNIT/ML SYR SQ SCH ×2 (06:39→17:14)
[2021-03-15] MEDS: ALBUTEROL HFA INHALER INHALATION SCH ×4 (08:27→19:56)
[2021-03-15] MEDS: FLUTICASONE 110 MCG INHALER INHALATION SCH ×2 (08:27→19:56)
[2021-03-15] MEDS: TIOTROPIUM 2.5 MCG INHALER INHALATION SCH (08:27)
[2021-03-15 08:45] LABS: Anisocytosis Slight; Basophils # (A) 0.1 k/uL (0-0.2); Basophils % (A) 1 %; Eosinophils % (A) 0 %; HCT 49.9 % (34.0-46.0); HGB 15.4 gm/dL (11.4-16.0); Hypochromasia Marked; Lymphocytes # (A) 0.5 k/uL (1.0-4.8); Lymphocytes % (A) 3 %; MCH 28.6 pg (25.0-35.0); MCHC 30.9 g/dL (31.0-37.0); MCV 92.3 fL (80.0-100.0); Mean Platelet Volume 7.6; Monocytes # (A) 0.4 k/uL (0-1.0); Monocytes % (A) 3 %; Neutrophils # (A) 14.8 k/uL (1.3-7.7); Neutrophils % (A) 92 %; Platelet Count 313 k/uL (150-450); RDW 16.9 % (11.5-15.5)
[2021-03-15 08:57] LABS: ALT 32 U/L (4-34); AST 36 U/L (14-36); African American GFR (CKD) 74 (>60 ml/min/1.73 sqM); Alkaline Phosphatase 98 U/L (38-126); Anion Gap 4 mmol/L; Blood Urea Nitrogen 45 mg/dL (7-17); Calcium 9.2 mg/dL (8.4-10.2); Carbon Dioxide 34 mmol/L (22-30); Chloride 102 mmol/L (98-107); Glucose 127 mg/dL (74-99); LDH 1279 U/L (313-618); Magnesium 2.6 mg/dL (1.6-2.3); Non-African American GFR(CKD) 64 (>60 ml/min/1.73 sqM); Potassium 5.1 mmol/L (3.5-5.1); Sodium 140 mmol/L (137-145); Total Bilirubin 0.5 mg/dL (0.2-1.3); Total Protein 6.1 g/dL (6.3-8.2)
[2021-03-15 09:06] LABS: INR 2.8 (<1.2); Prothrombin Time 26.8 sec (9.0-12.0)
[2021-03-15 09:32] LABS: C Reactive Protein 4.6 mg/dL (<1.0)
[2021-03-15] MEDS: CHOLECALCIFEROL 25 MCG (1000 IU) TABLET PO SCH (09:55)
[2021-03-15] MEDS: ZINC SULFATE 220 MG CAP PO SCH (09:55)
[2021-03-15] MEDS: ATORVASTATIN 10 MG TAB PO SCH (09:56)
[2021-03-15] MEDS: DEXAMETHASONE SOD PHOSPHATE 10 MG/ML 1 ML VIAL IVP SCH ×2 (09:56→21:08)
[2021-03-15] MEDS: allopurinoL 100 MG TAB PO SCH (09:56)
[2021-03-15] MEDS: METOPROLOL TARTRATE 25 MG TAB PO SCH ×3 (09:56→21:09)
[2021-03-15] MEDS: EZETIMIBE 10 MG TAB PO SCH (09:56)
[2021-03-15] MEDS: FUROSEMIDE 10 MG/ML 4 ML VIAL IV SCH (09:56)
[2021-03-15] MEDS: ASCORBIC ACID 500 MG TAB PO SCH (09:56)
[2021-03-15] MEDS: DILTIAZEM ORAL 60 MG TAB PO SCH ×2 (09:56→21:08)
--- NOTE | 2021-03-15 12:19 | P.PN ---
Subjective Progress Note Date: 03/15/21 (Covid19 pneumonia, acute hypoxemic respiratory failure) Progress note, date of service 03/15/[address] Barber. Patient seen in [id number] evaluated discussed with future plan, She requested no code. And she also requested to go home with the time to be released not to the group home. On exam Patient is conscious alert oriented able to communicate. Head was normocephalic and atraumatic and the pupil equal reactive, able to eat and swallow, hearing deficit. Neck was supple no JVD no thyromegaly no lymphadenopathy. Chest: Inspiratory and the respiratory rhonchi's has been improving with the treatment however she had leukocytosis with the possibility due to steroids, She is on the protocol for Covid treatment. Pulmonary. Heart: History of atrial fibrillation currently controlled rate and blood pressure controlled as well Abdomen soft. Bowel sounds no tenderness in the 4 quadrant, she had a bowel movement last night. Extremities: No edema and positive pulses with advanced degenerative osteoarthritis. Neurologically: Stable no confusion or disorientation and no history of la teralizing sign and no CVA. Assessment: #1 patient is gradual slow improvement with the current treatment. She is currently on rebreather with 15 L high flow oxygen. #2 she is on anticoagulant Coumadin and has been therapeutic PT and INR. #3 heart rate is improved. #4 admitted with acute hypoxic respiratory failure on the top of chronic. #5 diabetes mellitus with hyperglycemia and we did add Levemir small dose and currently blood sugar is controlled. Plan: We'll continue the current treatment We'll follow pulmonary recommendation. Continue monitoring diabetes mellitus2. With the effect of steroids as well on the blood glucose. Objective - Vital Signs Vital signs: Vital Signs Temp 98.2 F 03/15/21 09:00 Pulse 100 03/15/21 09:00 Resp 24 03/15/21 09:00 BP 146/86 03/15/21 09:00 Pulse Ox 96 03/15/21 09:00 Intake & Output 03/14/21 03/15/21 03/15/21 18:59 06:59 18:59 Intake Total 2340 310 Output Total 1300 360 Balance 1040 -360 310 Weight 72 kg Intake: IV 120 50 Invasive Line 3 20 cefTRIAXone 1 gm In 100 50 Sodium Chloride 0.9% 50 ml @ 100 mls/hr IVPB Q12H [facility] Rx#:[id number] Intake, IV Titration 300 Amount Remdesivir 100 mg In 250 Sodium Chloride 0.9% 250 ml @ 250 mls/hr IVPB DAILY@1200 [facility] Rx#: [id number] cefTRIAXone 1 gm In 50 Sodium Chloride 0.9% 50 ml @ 100 mls/hr IVPB Q12H [facility] Rx#:[id number] Oral 1920 260 Output: Urine 1300 360 Other: Voiding Method Indwelling Catheter Indwelling Catheter Indwelling Catheter - Labs CBC & Chem 7: 03/15/21 07:50 03/15/21 07:50 Labs: Abnormal Lab Results - Last 24 Hours (Table) 03/14/21 03/14/21 03/15/21 Range/Units 16:47 20:58 06:11 WBC (3.8-10.6) k/uL Hct (34.0-46.0) % MCHC (31.0-37.0) g/dL RDW (11.5-15.5) % Neutrophils # (1.3-7.7) k/uL Lymphocytes # (1.0-4.8) k/uL PT (9.0-12.0) sec INR (<1.2) D-Dimer (<0.60) mg/L FEU Carbon Dioxide (22-30) mmol/L BUN (7-17) mg/dL Glucose (74-99) mg/dL POC Glucose (mg/dL) 313 H 173 H 145 H (75-99) mg/dL Magnesium (1.6-2.3) mg/dL Lactate Dehydrogenase (313-618) U/L C-Reactive Protein (<1.0) mg/dL Total Protein (6.3-8.2) g/dL Albumin (3.5-5.0) g/dL 03/15/21 03/15/21 03/15/21 Range/Units 07:50 07:50 07:50 WBC 16.0 H (3.8-10.6) k/uL Hct 49.9 H (34.0-46.0) % MCHC 30.9 L (31.0-37.0) g/dL RDW 16.9 H (11.5-15.5) % Neutrophils # 14.8 H (1.3-7.7) k/uL Lymphocytes # 0.5 L (1.0-4.8) k/uL PT 26.8 H (9.0-12.0) sec INR 2.8 H (<1.2) D-Dimer 3.89 H (<0.60) mg/L FEU Carbon Dioxide 34 H (22-30) mmol/L BUN 45 H (7-17) mg/dL Glucose 127 H (74-99) mg/dL POC Glucose (mg/dL) (75-99) mg/dL Magnesium 2.6 H (1.6-2.3) mg/dL Lactate Dehydrogenase 1279 H (313-618) U/L C-Reactive Protein 4.6 H (<1.0) mg/dL Total Protein 6.1 L (6.3-8.2) g/dL Albumin 3.0 L (3.5-5.0) g/dL
[2021-03-15 12:31] LABS: Glucose,Whole Blood 285 mg/dL (75-99)
[2021-03-15] MEDS: REMDESIVIR 100 MG in SODIUM CHLORIDE 0.9% 250 ML IVPB SCH (12:53)
--- NOTE | 2021-03-15 13:30 | P.PN ---
Subjective Progress Note Date: 03/15/21 Principal diagnosis: COVID-19 pneumonia This is an 85-year-old female patient who has a history of gout, atrial fibrillation anticoagulated with warfarin, hypertension, COPD, hyperlipidemia. She had been seen here approximately one month ago with increasing shortness of breath cough and congestion. She she was treated for COPD exacerbation. She tested negative for COVID-19 at that time. Throughout the past month she has been on antibiotics without much improvement. 3-4 days ago she had worsening shortness of breath, cough and congestion. She presented here to the emergency room today for the same. As x-ray reveals bilateral patchy groundglass opacities as well as interstitium and possible underlying edema. Evidence of COPD. Is currently on a nonrebreather mask with O2 saturation 95%. She remains in atrial fibrillation with heart rate in the 120s. She is tachypneic at 28. Afebrile. White count 12.9. Hemoglobin 15.4. INR 3.8. Sodium 137. Potassium 3.9. Creatinine 0.82. Lactic acid 2.2. Troponin 0.047. ProBNP 2810. AST 30. ALT 23. Aldrich virus by PCR positive. She's been initiated on Decadron. 0.9 normal sinus 130 MLS per hour. The patient is seen today 03/13/2021 in follow-up on the selective care unit. She is currently sitting up in bed. Having lunch. She is still requiring 5 L high flow nasal cannula to maintain O2 saturations in the high 80s and low 90s. INR 3.9. Troponins negative 2. Glucose 185. Remains on Decadron, vitamin supplements. Anticoagulated with warfarin. This is day #2 of Remdesivir. She remains on ceftriaxone. No positive cultures. The patient is seen today 03/14/2021 in follow-up on the selective care unit. She is currently sitting up in bed. Awake and alert in no acute distress. She is currently on 15 L nonrebreather mask with O2 saturations in the mid 90s. She's been afebrile. Hemodynamically stable. Chest x-ray continues to show scattered reticular nodular infiltrates bilaterally. Unchanged compared to previous. She continues with some bilateral wheezing and scattered rhonchi. She is on day #3 of her Remdesivir. Continued on Decadron and vitamin supplements. Anticoagulated with warfarin. Continued on bronchodilators. INR 3.5. Glucose 142. The patient is seen today 03/15/2021 in follow-up on the selective care unit. She is currently sitting up in bed. Awake and alert in no acute distress. He is dyspneic with minimal conversation. Dyspneic on exertion. She is utilizing 15 L high flow nasal cannula plus a nonrebreather mask with O2 saturations in the mid 90s. She is afebrile. Hemodynamically stable. White count 16.0. Hemoglobin 15.4. Lymphocytes 0.5. D-dimer 3.89. Sodium 140. Potassium 5.1. Creatinine 0.84. Glucose 127. LDH 1279. C-reactive protein 4.6. TSH 1.17. She is continued on Decadron, warfarin, vitamin supplements. Receiving diu retics. Objective - Vital Signs Vital signs: Vital Signs Temp 98.2 F 03/15/21 09:00 Pulse 100 03/15/21 09:00 Resp 24 03/15/21 09:00 BP 146/86 03/15/21 09:00 Pulse Ox 96 03/15/21 09:00 Intake & Output 03/14/21 03/15/21 03/15/21 18:59 06:59 18:59 Intake Total 2340 310 Output Total 1300 360 Balance 1040 -360 310 Weight 72 kg Intake: IV 120 50 Invasive Line 3 20 cefTRIAXone 1 gm In 100 50 Sodium Chloride 0.9% 50 ml @ 100 mls/hr IVPB Q12H [facility] Rx#:[id number] Intake, IV Titration 300 Amount Remdesivir 100 mg In 250 Sodium Chloride 0.9% 250 ml @ 250 mls/hr IVPB DAILY@1200 [facility] Rx#: [id number] cefTRIAXone 1 gm In 50 Sodium Chloride 0.9% 50 ml @ 100 mls/hr IVPB Q12H [facility] Rx#:[id number] Oral 1920 260 Output: Urine 1300 360 Other: Voiding Method Indwelling Catheter Indwelling Catheter Indwelling Catheter - Exam GENERAL EXAM: Alert, 85-year-old female patient, on 15 liters high flow nasal cannula plus a nonrebreather mask, in mild respiratory distress. HEAD: Normocephalic. EYES: Normal reaction of pupils, equal size. NOSE: Clear with pink turbinates. THROAT: No erythema or exudates. NECK: No masses, no JVD. CHEST: No chest wall deformity. LUNGS: Equal air entry with crackles in the bilateral bases. CVS: S1 and S2 normal with no audible murmur, regular rhythm. ABDOMEN: No hepatosplenomegaly, normal bowel sounds, no guarding or rigidity. SPINE: No scoliosis or deformity SKIN: No rashes CENTRAL NERVOUS SYSTEM: No focal deficits, tone is normal in all 4 extremities. EXTREMITIES: There is no peripheral edema. No clubbing, no cyanosis. Peripheral pulses are intact. - Labs CBC & Chem 7: 03/15/21 07:50 03/15/21 07:50 Labs: Abnormal Lab Results - Last 24 Hours (Table) 03/14/21 03/14/21 03/15/21 Range/Units 16:47 20:58 06:11 WBC (3.8-10.6) k/uL Hct (34.0-46.0) % MCHC (31.0-37.0) g/dL RDW (11.5-15.5) % Neutrophils # (1.3-7.7) k/uL Lymphocytes # (1.0-4.8) k/uL PT (9.0-12.0) sec INR (<1.2) D-Dimer (<0.60) mg/L FEU Carbon Dioxide (22-30) mmol/L BUN (7-17) mg/dL Glucose (74-99) mg/dL POC Glucose (mg/dL) 313 H 173 H 145 H (75-99) mg/dL Magnesium (1.6-2.3) mg/dL Lactate Dehydrogenase (313-618) U/L C-Reactive Protein (<1.0) mg/dL Total Protein (6.3-8.2) g/dL Albumin (3.5-5.0) g/dL 03/15/21 03/15/21 03/15/21 Range/Units 07:50 07:50 07:50 WBC 16.0 H (3.8-10.6) k/uL Hct 49.9 H (34.0-46.0) % MCHC 30.9 L (31.0-37.0) g/dL RDW 16.9 H (11.5-15.5) % Neutrophils # 14.8 H (1.3-7.7) k/uL Lymphocytes # 0.5 L (1.0-4.8) k/uL PT 26.8 H (9.0-12.0) sec INR 2.8 H (<1.2) D-Dimer 3.89 H (<0.60) mg/L FEU Carbon Dioxide 34 H (22-30) mmol/L BUN 45 H (7-17) mg/dL Glucose 127 H (74-99) mg/dL POC Glucose (mg/dL) (75-99) mg/dL Magnesium 2.6 H (1.6-2.3) mg/dL Lactate Dehydrogenase 1279 H (313-618) U/L C-Reactive Protein 4.6 H (<1.0) mg/dL Total Protein 6.1 L (6.3-8.2) g/dL Albumin 3.0 L (3.5-5.0) g/dL 03/15/21 Range/Units 12:10 WBC (3.8-10.6) k/uL Hct (34.0-46.0) % MCHC (31.0-37.0) g/dL RDW (11.5-15.5) % Neutrophils # (1.3-7.7) k/uL Lymphocytes # (1.0-4.8) k/uL PT (9.0-12.0) sec INR (<1.2) D-Dimer (<0.60) mg/L FEU Carbon Dioxide (22-30) mmol/L BUN (7-17) mg/dL Glucose (74-99) mg/dL POC Glucose (mg/dL) 285 H (75-99) mg/dL Magnesium (1.6-2.3) mg/dL Lactate Dehydrogenase (313-618) U/L C-Reactive Protein (<1.0) mg/dL Total Protein (6.3-8.2) g/dL Albumin (3.5-5.0) g/dL Assessment and Plan Assessment: 1 Acute hypoxemic respiratory failure secondary to acute COVID-19 pneumonia and possible on underlying congestive heart failure with interstitial edema and currently on 15 L high flow nasal cannula plus a nonrebreather mask. Not vaccinated. Initiated on Remdesivir 2 Atrial fibrillation with a rapid ventricular response, anti-coagulated with warfarin and INR 3.5 3 History of diastolic and systolic congestive heart failure 4 History of chronic obstructive pulmonary disease 5 Chronic hypoxic respiratory failure on 2 L of nasal cannula at home 6 Hypertension 7 Hyperlipidemia Plan: The patient was seen and evaluated today On 15 L high flow nasal cannula plus a nonrebreather mask Day #4 of Remdesivir Continue warfarin, Decadron, vitamin supplements Titrate the FiO2 as tolerated Condition guarded DO NOT RESUSCITATE/DO NOT INTUBATE CODE STATUS We will continue to follow I, the cosigning physician, performed a history & physical examination of the patient. Lungs sounds with coarse crackles in the bilateral bases. Maintaining good O2 saturations in the 90s on 15 L high flow nasal cannula plus a nonrebreather mask. I discussed the assessment and plan of care with my nurse practitioner, Rosa Velasquez. I attest to the above note as dictated by her.
[2021-03-15 16:46] LABS: Glucose,Whole Blood 237 mg/dL (75-99)
[2021-03-15] MEDS ORDERED: WARFARIN 1 MG TAB PO ONE (18:00)
[2021-03-15 21:03] LABS: Glucose,Whole Blood 177 mg/dL (75-99)
[2021-03-16 06:33] LABS: Glucose,Whole Blood 139 mg/dL (75-99)
[2021-03-16] MEDS: INSULIN ASPART (NovoLOG) 100 UNIT/ML VIAL SQ SCH ×4 (06:45→21:15)
[2021-03-16] MEDS: INSULIN DETEMIR (LEVEMIR) 100 UNIT/ML SYR SQ SCH ×2 (06:45→17:20)
[2021-03-16 07:53] LABS: INR 2.5 (<1.2); Prothrombin Time 23.9 sec (9.0-12.0)
[2021-03-16] MEDS: CHOLECALCIFEROL 25 MCG (1000 IU) TABLET PO SCH (08:35)
[2021-03-16] MEDS: DILTIAZEM ORAL 60 MG TAB PO SCH ×2 (08:35→21:14)
[2021-03-16] MEDS: ATORVASTATIN 10 MG TAB PO SCH (08:35)
[2021-03-16] MEDS: DEXAMETHASONE SOD PHOSPHATE 10 MG/ML 1 ML VIAL IVP SCH ×2 (08:36→21:14)
[2021-03-16] MEDS: ZINC SULFATE 220 MG CAP PO SCH (08:36)
[2021-03-16] MEDS: allopurinoL 100 MG TAB PO SCH (08:36)
[2021-03-16] MEDS: METOPROLOL TARTRATE 25 MG TAB PO SCH ×3 (08:36→21:14)
[2021-03-16] MEDS: ASCORBIC ACID 500 MG TAB PO SCH (08:36)
[2021-03-16] MEDS: FUROSEMIDE 10 MG/ML 4 ML VIAL IV SCH (08:37)
[2021-03-16] MEDS: EZETIMIBE 10 MG TAB PO SCH (08:47)
[2021-03-16] MEDS: REMDESIVIR 100 MG in SODIUM CHLORIDE 0.9% 250 ML IVPB SCH (08:47)
[2021-03-16] MEDS: ALBUTEROL HFA INHALER INHALATION SCH ×4 (09:11→19:30)
[2021-03-16] MEDS: TIOTROPIUM 2.5 MCG INHALER INHALATION SCH (09:12)
[2021-03-16] MEDS: FLUTICASONE 110 MCG INHALER INHALATION SCH ×2 (09:12→19:30)
[2021-03-16 11:43] LABS: Glucose,Whole Blood 211 mg/dL (75-99)
--- NOTE | 2021-03-16 11:43 | P.PN ---
Subjective Progress Note Date: 03/16/21 Progress note date of service 03/16/2021. Dictation by Dr. Li. Patient seen and evaluated [id number]. Patient stated that she is feeling a little better but still have the wheezes and rhonchi. On exam: Head was normocephalic and atraumatic, pupil was equal reactive, hearing deficit but she is able to hear me with loud voice. Oropharynx able to eat and swallow no sore throat Neck was supple no JVD no thyromegaly no lymphadenopathy. Chest: She still on high flow oxygen and rhonchi's and wheezes bilateral. Heart irregular irregularity to his atrial fibrillation. Abdomen soft positive bowel sounds Extremities no edema and positive pulses. She had Pimentel catheter. Conscious alert oriented. Assessment: Acute hypoxic respiratory failure on the top of chronic Atrial fibrillation with paroxysmal increase in the rate currently stable. Hyperlipidemia, Diabetes mellitus currently controlled. Hypertension controlled. Gouty arthropathy. Plan: We'll continue current treatment, and continue supportive care and management, physical therapy, future plan depends on the patient improvement. Objective - Vital Signs Vital signs: Vital Signs Temp 97.6 F 03/16/21 08:00 Pulse 101 H 03/16/21 08:00 Resp 20 03/16/21 08:00 BP 149/91 03/16/21 08:00 Pulse Ox 92 L 03/16/21 08:00 Intake & Output 03/15/21 03/16/21 03/16/21 18:59 06:59 18:59 Intake Total 830 260 Output Total 1250 650 300 Balance -420 -650 -40 Weight 70.5 kg Intake: IV 50 cefTRIAXone 1 gm In 50 Sodium Chloride 0.9% 50 ml @ 100 mls/hr IVPB Q12H [facility] Rx#:[id number] Oral 780 260 Output: Urine 1250 650 300 Uretheral (Pimentel) 650 500 Other: Voiding Method Indwelling Catheter Indwelling Catheter Indwelling Catheter - Labs CBC & Chem 7: 03/15/21 07:50 03/15/21 07:50 Labs: Abnormal Lab Results - Last 24 Hours (Table) 03/15/21 03/15/21 03/15/21 Range/Units 07:50 12:10 16:45 PT (9.0-12.0) sec INR (<1.2) POC Glucose (mg/dL) 285 H 237 H (75-99) mg/dL Hemoglobin A1c 6.4 H (4.0-6.0) % 03/15/21 03/16/21 03/16/21 Range/Units 21:02 06:32 07:09 PT 23.9 H (9.0-12.0) sec INR 2.5 H (<1.2) POC Glucose (mg/dL) 177 H 139 H (75-99) mg/dL Hemoglobin A1c (4.0-6.0) %
--- NOTE | 2021-03-16 15:17 | P.PN ---
Subjective Progress Note Date: 03/16/21 Principal diagnosis: Dyspnea, COVID-19 pneumonia On 03/16/2021 patient seen in follow-up on selective care unit, today she is on 15 L per high flow nasal cannula, she is not using the nonrebreather mask in addition to the high flow nasal cannula as she was yesterday, she is breathing more comfortably, her pulse ox is 92-94%. She's been afebrile, hemodynamically she is been stable, she is awake and alert, she is responding appropriately, she is overall weak, but appears to be in no acute distress. Her last chest x-ray from 03/14/2021 showed scattered reticulonodular infiltrates bilaterally, currently patient is on Decadron 6 mg twice daily, she is on IV Lasix 40 mg meghan ly, COVID-19 vitamins, and ceftriaxone for a urinary tract infection, she is on Coumadin for anticoagulation and today's INR is 2.5. Objective - Vital Signs Vital signs: Vital Signs Temp 97.4 F L 03/16/21 12:00 Pulse 82 03/16/21 12:00 Resp 20 03/16/21 12:00 BP 134/77 03/16/21 12:00 Pulse Ox 93 L 03/16/21 12:46 Intake & Output 03/15/21 03/16/21 03/16/21 18:59 06:59 18:59 Intake Total 830 378 Output Total 6143 789 9548 Balance -420 -650 -1122 Weight 70.5 kg Intake: IV 50 cefTRIAXone 1 gm In 50 Sodium Chloride 0.9% 50 ml @ 100 mls/hr IVPB Q12H [facility] Rx#:[id number] Oral 780 378 Output: Urine 7741 148 3210 Uretheral (Pimentel) 895 643 5505 Other: Voiding Method Indwelling Catheter Indwelling Catheter Indwelling Catheter # Bowel Movements 1 - Exam GENERAL EXAM: Alert, very pleasant, 85-year-old white female, on 15 L of oxygen with a pulse ox of 93-94% comfortable in no apparent distress. HEAD: Normocephalic/atraumatic. EYES: Normal reaction of pupils, equal size. Conjunctiva pink, sclera white. NOSE: Clear with pink turbinates. THROAT: No erythema or exudates. NECK: No masses, no JVD, no thyroid enlargement, no adenopathy. CHEST: No chest wall deformity. Symmetrical expansion. LUNGS: Equal air entry with diffuse crackles CVS: Regular rate and rhythm, normal S1 and S2, no gallops, no murmurs, no rubs ABDOMEN: Soft, nontender. No hepatosplenomegaly, normal bowel sounds, no guarding or rigidity. EXTREMITIES: No clubbing, no edema, no cyanosis, 2+ pulses and upper and lower extremities. MUSCULOSKELETAL: Muscle strength and tone normal. SPINE: No scoliosis or deformity SKIN: No rashes CENTRAL NERVOUS SYSTEM: Alert and oriented -3. No focal deficits, tone is norm al in all 4 extremities. PSYCHIATRIC: Alert and oriented -3. Appropriate affect. Intact judgment and insight. - Labs CBC & Chem 7: 03/15/21 07:50 03/15/21 07:50 Labs: Abnormal Lab Results - Last 24 Hours (Table) 03/15/21 03/15/21 03/16/21 Range/Units 16:45 21:02 06:32 PT (9.0-12.0) sec INR (<1.2) POC Glucose (mg/dL) 237 H 177 H 139 H (75-99) mg/dL 03/16/21 03/16/21 Range/Units 07:09 11:42 PT 23.9 H (9.0-12.0) sec INR 2.5 H (<1.2) POC Glucose (mg/dL) 211 H (75-99) mg/dL Assessment and Plan Plan: Assessment: #1. Acute hypoxic respiratory failure secondary to acute COVID-19 pneumonia and possibly acute exacerbation of CHF with chest x-ray showing interstitial edema. Patient is a non-vaccinated adult, she completed a course of the Remdesivir #2. A. fib with RVR currently better controlled and patient is on Coumadin for anticoagulation, his INR is 2.5 #3. History of diastolic and systolic CHF, with acute exacerbation #4. History of COPD on home oxygen at 2 L, with acute exacerbation #5. Hypertension #6. Hyperlipidemia Plan: Patient has completed her course of Remdesivir Still remains on high flow oxygen although her oxygen demand has slightly improved and she is not using the nonrebreather mask Continue with IV diuretics Continue with Decadron Patient continues on Coumadin for anticoagulation, today's INR has been noted Increase activity as tolerated We'll continue to follow I performed a history & physical examination of the patient and discussed their management with my nurse practitioner, Billie Amin. I reviewed the nurse practitioner's note and agree with the documented findings and plan of care. Lung sounds are positive for diminished with scattered rhonchi throughout the lung macdonald. The findings and the impression was discussed with the patient. I attest to the documentation by the nurse practitioner. Time with Patient: Less than 30
[2021-03-16 16:41] LABS: Glucose,Whole Blood 253 mg/dL (75-99)
[2021-03-16] MEDS ORDERED: WARFARIN 1.5 MG TAB PO ONE (18:00)
[2021-03-16 20:19] LABS: Glucose,Whole Blood 267 mg/dL (75-99)
[2021-03-17 06:34] LABS: Glucose,Whole Blood 111 mg/dL (75-99)
[2021-03-17 06:38] LABS: INR 2.6 (<1.2); Prothrombin Time 25.5 sec (9.0-12.0)
[2021-03-17] MEDS: INSULIN ASPART (NovoLOG) 100 UNIT/ML VIAL SQ SCH ×4 (08:52→20:16)
[2021-03-17] MEDS: DILTIAZEM ORAL 60 MG TAB PO SCH ×2 (08:56→20:16)
[2021-03-17] MEDS: CHOLECALCIFEROL 25 MCG (1000 IU) TABLET PO SCH (08:56)
[2021-03-17] MEDS: ZINC SULFATE 220 MG CAP PO SCH (08:57)
[2021-03-17] MEDS: allopurinoL 100 MG TAB PO SCH (08:57)
[2021-03-17] MEDS: ATORVASTATIN 10 MG TAB PO SCH (08:57)
[2021-03-17] MEDS: ASCORBIC ACID 500 MG TAB PO SCH (08:57)
[2021-03-17] MEDS: METOPROLOL TARTRATE 25 MG TAB PO SCH ×3 (08:57→22:09)
[2021-03-17] MEDS: FUROSEMIDE 10 MG/ML 4 ML VIAL IV SCH (08:57)
[2021-03-17] MEDS: DEXAMETHASONE SOD PHOSPHATE 10 MG/ML 1 ML VIAL IVP SCH ×2 (08:57→20:16)
[2021-03-17] MEDS: EZETIMIBE 10 MG TAB PO SCH (08:57)
[2021-03-17] MEDS: FLUTICASONE 110 MCG INHALER INHALATION SCH ×2 (09:07→21:08)
[2021-03-17] MEDS: TIOTROPIUM 2.5 MCG INHALER INHALATION SCH (09:07)
[2021-03-17] MEDS: ALBUTEROL HFA INHALER INHALATION SCH ×4 (09:07→21:07)
[2021-03-17] MEDS: INSULIN DETEMIR (LEVEMIR) 100 UNIT/ML SYR SQ SCH ×2 (09:17→22:09)
[2021-03-17 12:01] LABS: Glucose,Whole Blood 294 mg/dL (75-99)
--- NOTE | 2021-03-17 15:57 | P.PN ---
Subjective Progress Note Date: 03/17/21 (High flow oxygen 15 L/m) Progress note Date of service 03/17/[address] Li. Patient seen [id number] evaluated. Still short of breath and wheezing inspiratory and expiratory with a high flow oxygen. Patient finished the course of Remdesivir, still on dexamethasone twice a day. On exam Patient is conscious alert oriented, Head was normocephalic and atraumatic pupil was equal reactive to ROS pink sclera was anicteric Oropharynx able to eat and swallow with few teeth Neck was supple no JVD no thyromegaly no lymphadenopathy. Chest: Still short of breath on high flow oxygen, still using the extra respiratory muscles. The heart: Atrial fibrillation currently controlled ventricular response left ventricular hypertrophy with ventricular systolic function is mild to moderate impaired with ejection fraction 40-45%. Left Atrium moderately dilated, mild aortic valve sclerosis associated with mild aortic stenosis with a peak measured 9.60 mmHg/mean 4.12 mmHg. Mild to moderate mitral regurgitation. Abdomen is soft positive bowel sounds no tenderness in the four-quadrant. Extremities no edema and positive pulses. Neurologically no lateralizing sign no neuro deficit. Assessment: #1 acute hypoxic respiratory failure on the top of chronic #2: Covid19 pneumonia and bronchitis. #3 interstitial lung disease with severe hypoxemia. #4 COPD with the acute exacerbation on the top of chronic. #5 coronary artery disease atherosclerotic heart disease #6 impaired systolic and diastolic with acute congestive heart failure on the top of chronic #7 pulmonary hypertension. #8 ejection fraction 40-45%. #9 atrial fibrillation with intermittent RVR. #10 hyperlipidemia. #11 history of hypertension with hypertensive heart disease. Plan: #1 patient currently off the rebreather, but still continued on high flow oxygen #2 still short of breath. #3 protocol for Covid 19 has been adjusted and discontinued the REMdesivir, dexamethasone still continued. #4 patient still currently sick need some more time for hospitalization. #5 still followed by the pulmonary Dr. Childress. Objective - Vital Signs Vital signs: Vital Signs Temp 98.8 F 03/17/21 15:27 Pulse 75 03/17/21 15:27 Resp 20 03/17/21 15:27 BP 138/72 03/17/21 15:27 Pulse Ox 96 03/17/21 15:27 Intake & Output 03/16/21 03/17/21 03/17/21 18:59 06:59 18:59 Intake Total 638 10 480 Output Total 1500 650 475 Balance -862 -640 5 Weight 70 kg Intake: IV 10 Invasive Line 3 10 Oral 638 480 Output: Urine 1500 650 475 Uretheral (Pimentel) 1200 Other: Voiding Method Indwelling Catheter Indwelling Catheter Indwelling Catheter # Bowel Movements 1 1 - Labs CBC & Chem 7: 03/15/21 07:50 03/15/21 07:50 Labs: Abnormal Lab Results - Last 24 Hours (Table) 03/16/21 03/16/21 03/17/21 Range/Units 16:40 20:15 05:52 PT 25.5 H (9.0-12.0) sec INR 2.6 H (<1.2) POC Glucose (mg/dL) 253 H 267 H (75-99) mg/dL 03/17/21 03/17/21 Range/Units 06:31 12:00 PT (9.0-12.0) sec INR (<1.2) POC Glucose (mg/dL) 111 H 294 H (75-99) mg/dL
[2021-03-17 16:49] LABS: Glucose,Whole Blood 476 mg/dL (75-99)
[2021-03-17] MEDS ORDERED: INSULIN ASPART (NovoLOG) 100 UNIT/ML VIAL SQ ONE (16:59)
--- NOTE | 2021-03-17 17:16 | P.PN ---
Subjective Progress Note Date: 03/17/21 Principal diagnosis: Coronavirus associated pneumonia. On 03/16/2021 patient seen in follow-up on selective care unit, today she is on 15 L per high flow nasal cannula, she is not using the nonrebreather mask in addition to the high flow nasal cannula as she was yesterday, she is breathing more comfortably, her pulse ox is 92-94%. She's been afebrile, hemodynamically she is been stable, she is awake and alert, she is responding appropriately, she is overall weak, but appears to be in no acute distress. Her last chest x-ray from 03/14/2021 showed scattered reticulonodular infiltrates bilaterally, currently patient is on Decadron 6 mg twice daily, she is on IV Lasix 40 mg daily, COVID-19 vitamins, and ceftriaxone for a urinary tract infection, she is on Coumadin for anticoagulation and today's INR is 2.5. Progress note dated 03/17/2021. 85-year-old female, again seen in room 361. The patient is currently on 15 L high flow nasal cannula. She's not receiving any IV fluids. The patient has a nonrebreather mask at the bedside, but is not using it. She is very frail appearing. She is a no code, which is good. She does appear to have some mild respiratory difficulty. No new labs today other than a glucose of 476. No new chest x-rays to review. The patient's on vitamin C, vitamin D3, and zinc. The patient is also on Coumadin, and Decadron. The patient is also on Rocephin. Objective - Vital Signs Vital signs: Vital Signs Temp 98.8 F 03/17/21 15:27 Pulse 75 03/17/21 15:27 Resp 20 03/17/21 15:27 BP 138/72 03/17/21 15:27 Pulse Ox 96 03/17/21 15:27 Intake & Output 03/16/21 03/17/21 03/17/21 18:59 06:59 18:59 Intake Total 638 10 480 Output Total 1500 650 475 Balance -862 -640 5 Weight 70 kg Intake: IV 10 Invasive Line 3 10 Oral 638 480 Output: Urine 1500 650 475 Uretheral (Pimentel) 1200 Other: Voiding Method Indwelling Catheter Indwelling Catheter Indwelling Catheter # Bowel Movements 1 1 - Exam Very lethargic. Mild respiratory difficulty. The patient is extremely frail appearing. No dottie respiratory distress. Currently on 15 L high flow nasal cannula. HEENT examination is grossly unremarkable. Neck supple. Full range of motion. No adenopathy thyromegaly or neck vein distention. Cardiovascular examination reveals regular rhythm rate. S1-S2 normal. No S3 or S4. No discernible murmur noted. Heart sounds are distant. Heart rate 75 bpm. Lungs reveal diminished breath sounds throughout. The patient does not take deep breaths. Scattered rhonchi are noted. No crackles. No wheezes. Abdomen soft bowel sounds are heard. No masses or tenderness. Extremities are intact. No cyanosis clubbing or edema. Skin is without rash or lesion. Neurologic examination is brief but nonfocal. - Labs CBC & Chem 7: 03/15/21 07:50 03/15/21 07:50 Labs: Abnormal Lab Results - Last 24 Hours (Table) 03/16/21 03/17/21 03/17/21 Range/Units 20:15 05:52 06:31 PT 25.5 H (9.0-12.0) sec INR 2.6 H (<1.2) POC Glucose (mg/dL) 267 H 111 H (75-99) mg/dL 03/17/21 03/17/21 Range/Units 12:00 16:48 PT (9.0-12.0) sec INR (<1.2) POC Glucose (mg/dL) 294 H 476 H (75-99) mg/dL Assessment and Plan Assessment: Acute hypoxemic respiratory failure secondary to coronavirus associated pneumonia. Possible acute exacerbation of CHF. Atrial fibrillation with RVR, currently on Coumadin. History of diastolic and systolic CHF. History of COPD, currently on home O2 at 2 L. Hypertension. Hyperlipidemia. Plan: Plan dated 03/17/2021. The patient remains on high flow nasal O2. Saturations are in the low 90s. She did complete her course of REM. She remains on Decadron, and Coumadin. Additional recommendations and suggestions are forthcoming. She also remains on vitamin C, vitamin D3, and zinc. The patient is a no code. She is very frail appearing. We will continue to follow make recommendations where appropriate. Time with Patient: Less than 30
[2021-03-17] MEDS ORDERED: WARFARIN 1 MG TAB PO ONE (18:00)
[2021-03-17 20:03] LABS: Glucose,Whole Blood 231 mg/dL (75-99)
[2021-03-17] MEDS: ACETAMINOPHEN TAB 325 MG TAB PO PRN (20:15)
[2021-03-17] MEDS ORDERED: INSULIN DETEMIR (LEVEMIR) 100 UNIT/ML SYR SQ SCH (21:00)
[2021-03-18] MEDS: ACETAMINOPHEN TAB 325 MG TAB PO PRN ×3 (02:01→21:20)
[2021-03-18 05:33] LABS: INR 3.9 (<1.2); Prothrombin Time 37.5 sec (9.0-12.0)
[2021-03-18] MEDS ORDERED: INSULIN DETEMIR (LEVEMIR) 100 UNIT/ML SYR SQ SCH (06:00)
[2021-03-18] MEDS: INSULIN ASPART (NovoLOG) 100 UNIT/ML VIAL SQ SCH ×4 (06:20→21:20)
[2021-03-18 06:22] LABS: Glucose,Whole Blood 102 mg/dL (75-99)
[2021-03-18 06:26] LABS: Glucose,Whole Blood 94 mg/dL (75-99)
[2021-03-18] MEDS: ALBUTEROL HFA INHALER INHALATION SCH ×4 (08:01→19:31)
[2021-03-18] MEDS: FLUTICASONE 110 MCG INHALER INHALATION SCH ×2 (08:01→19:31)
[2021-03-18] MEDS: TIOTROPIUM 2.5 MCG INHALER INHALATION SCH (08:01)
[2021-03-18] MEDS: CHOLECALCIFEROL 25 MCG (1000 IU) TABLET PO SCH (09:38)
[2021-03-18] MEDS: ATORVASTATIN 10 MG TAB PO SCH (09:38)
[2021-03-18] MEDS: DEXAMETHASONE SOD PHOSPHATE 10 MG/ML 1 ML VIAL IVP SCH ×2 (09:38→21:20)
[2021-03-18] MEDS: allopurinoL 100 MG TAB PO SCH (09:38)
[2021-03-18] MEDS: ZINC SULFATE 220 MG CAP PO SCH (09:38)
[2021-03-18] MEDS: ASCORBIC ACID 500 MG TAB PO SCH (09:38)
[2021-03-18] MEDS: DILTIAZEM ORAL 60 MG TAB PO SCH ×2 (09:38→21:19)
[2021-03-18] MEDS: METOPROLOL TARTRATE 25 MG TAB PO SCH ×3 (09:38→21:19)
[2021-03-18] MEDS: FUROSEMIDE 10 MG/ML 4 ML VIAL IV SCH (09:38)
[2021-03-18] MEDS: EZETIMIBE 10 MG TAB PO SCH (09:39)
[2021-03-18] MEDS: INSULIN DETEMIR (LEVEMIR) 100 UNIT/ML SYR SQ SCH ×2 (09:39→22:21)
--- NOTE | 2021-03-18 10:09 | CDI ---
Documentation Clarification Form Date: 03/18/2021 09:46:58 AM From: Lydia Moya RN CCDS Admit Date: 03/12/2021 11:42:00 AM Patient Name: Sandie Virk Visit Number: [id number] Discharge Date: ATTENTION: The Clinical Documentation Specialists (CDI) and [facility] Coding Staff appreciate your assistance in clarifying documentation. Please respond to the clarification below the line at the bottom and electronically sign. The CDI & [facility] Coding staff will review the response and follow-up if needed. Please note: Queries are made part of the Legal Health Record. If you have any questions, please contact the author of this message via ITS. Dr. Markus Jones There is documentation of urinary tract infection, 03/16 & 03/17, [employer] progress notes. Additional clarification is requested. History/Risk Factors: 89-year-old female presents to the ED with shortness of breath, dyspnea, orthopnea and coughing. Medical History: COPD, Urinary incontinence and tested positive one week ago for COVID 19. 03/12, H&P Clinical Indicators: VSS: 03/12 B/P 160/115; HR 136; Temp 98.1; RR 30; SpO2 97% Non-Rebreather 15L LABS: 03/12 Wbc 12.9; Neutrophils 10.7; D-dimer 1.52; Lactic 2.2; Procalcitonin 0.07 CXR: 03/12 Correlate for pneumonia, interstitial edema and CHF, there may be underlying COPD. Nursing urinary catheter assessment: 03/12 - Date of urinary catheter insertion 03/12 H&P: 03/12 Patient already on dexamethasone and because of the underlying suspicious of infection and pneumonia with the leukocytosis with started patient on Rocephin 1g every 12 hour. Treatment: 03/12 dcd 03/12 Ceftriaxone Sodium 1gm IVPB Q12H; 03/12 to current Ceftriaxone Sodium 1gm IVPB Q12HR Can you please clarify Urinary tract infection? [ ] Urinary tract infection ruled out [ ] Urinary tract infection POA [ ] Urinary tract infection due to cope catheter [ ] Other, please specify [ ] Unable to determine (Template Last Revised: June 2020) MTDD
[2021-03-18 11:43] VITALS: BMI 26.4
[2021-03-18 11:44] LABS: Glucose,Whole Blood 99 mg/dL (75-99)
--- NOTE | 2021-03-18 12:22 | P.PN ---
Subjective Progress Note Date: 03/18/21 Principal diagnosis: Coronavirus associated pneumonia. On 03/16/2021 patient seen in follow-up on selective care unit, today she is on 15 L per high flow nasal cannula, she is not using the nonrebreather mask in addition to the high flow nasal cannula as she was yesterday, she is breathing more comfortably, her pulse ox is 92-94%. She's been afebrile, hemodynamically she is been stable, she is awake and alert, she is responding appropriately, she is overall weak, but appears to be in no acute distress. Her last chest x-ray from 03/14/2021 showed scattered reticulonodular infiltrates bilaterally, currently patient is on Decadron 6 mg twice daily, she is on IV Lasix 40 mg daily, COVID-19 vitamins, and ceftriaxone for a urinary tract infection, she is on Coumadin for anticoagulation and today's INR is 2.5. Progress note dated 03/17/2021. 85-year-old female, again seen in room 361. The patient is currently on 15 L high flow nasal cannula. She's not receiving any IV fluids. The patient has a nonrebreather mask at the bedside, but is not using it. She is very frail appearing. She is a no code, which is good. She does appear to have some mild respiratory difficulty. No new labs today other than a glucose of 476. No new chest x-rays to review. The patient's on vitamin C, vitamin D3, and zinc. The patient is also on Coumadin, and Decadron. The patient is also on Rocephin. Progress note dated 03/18/2021. 85-year-old female, again seen in room 361. Currently, the patient's on 12 L high flow nasal O2. Yesterday, she was on 15 L high flow nasal O2. Despite her high oxygen requirements, she does not appear to be in any distress. She is a DO NOT RESUSCITATE patient. She is very weak and frail appearing. The patient continues on vitamin C, vitamin D3, zinc, as well as Decadron, and Coumadin. Today's PT INR were 37.5 and 3.9 respectively. The sugar today was 99. No recent chest x-ray to report. Objective - Vital Signs Vital signs: Vital Signs Temp 97.4 F L 03/18/21 08:00 Pulse 90 03/18/21 08:00 Resp 18 03/18/21 08:00 BP 131/87 03/18/21 08:00 Pulse Ox 91 L 03/18/21 08:00 Intake & Output 03/17/21 03/18/21 03/18/21 18:59 06:59 18:59 Intake Total 750 20 240 Output Total 1075 Balance -325 20 240 Weight 70 kg Intake: IV 10 20 Invasive Line 4 10 20 Oral 740 240 Output: Urine 1075 Uretheral (Pimentel) 600 Other: Voiding Method Indwelling Catheter Bedside Commode Bedside Commode # Voids 1 1 - Exam Very lethargic. No obvious respiratory distress. The patient is extremely frail appearing. Currently on 12 L high flow nasal cannula. HEENT examination is grossly unremarkable. Neck supple. Full range of motion. No adenopathy thyromegaly or neck vein distention. Cardiovascular examination reveals regular rhythm rate. S1-S2 normal. No S3 or S4. No discernible murmur noted. Heart sounds are distant. Heart rate 90 bpm. Lungs reveal diminished breath sounds throughout. The patient does not take deep breaths. Scattered rhonchi are noted. No crackles. No wheezes. Abdomen soft bowel sounds are heard. No masses or tenderness. Extremities are intact. No cyanosis clubbing or edema. Skin is without rash or lesion. Neurologic examination is brief but nonfocal. - Labs CBC & Chem 7: 03/15/21 07:50 03/15/21 07:50 Labs: Abnormal Lab Results - Last 24 Hours (Table) 03/17/21 03/17/21 03/18/21 Range/Units 16:48 20:02 04:59 PT 37.5 H (9.0-12.0) sec INR 3.9 H (<1.2) POC Glucose (mg/dL) 476 H 231 H (75-99) mg/dL 03/18/21 Range/Units 06:20 PT (9.0-12.0) sec INR (<1.2) POC Glucose (mg/dL) 102 H (75-99) mg/dL Assessment and Plan Assessment: Acute hypoxemic respiratory failure secondary to coronavirus associated pneumonia. Possible acute exacerbation of CHF. Atrial fibrillation with RVR, currently on Coumadin. History of diastolic and systolic CHF. History of COPD, currently on home O2 at 2 L. Hypertension. Hyperlipidemia. Plan: Plan dated 03/17/2021. The patient remains on high flow nasal O2. Saturations are in the low 90s. She did complete her course of REM. She remains on Decadron, and Coumadin. Additional recommendations and suggestions are forthcoming. She also remains on vitamin C, vitamin D3, and zinc. The patient is a no code. She is very frail appearing. We will continue to follow make recommendations where appropriate. Plan dated 03/18/2021. The patient remains on vitamin C, vitamin D3, and zinc. In addition, the patient's on Decadron, and Coumadin. The Decadron is at 6 mg twice a day. Currently, her INR is a bit elevated. Microbiologic studies are thus far negative are pending. Her pro-calcitonin level is very low, and hence, the antibiotic was discontinued. We will continue to follow. The patient is a no code. Additional recommendations and suggestions are forthcoming. Prognosis is very poor. Time with Patient: Less than 30
--- NOTE | 2021-03-18 12:54 | P.PN ---
Subjective Progress Note Date: 03/18/21 (Covid-19 pneumonia with severe hypoxemia) Progress note, on date of service 03/18/[address] Li. Patient seen and evaluated [id number]. She still hypoxemic on high flow 12 L improved from yesterday 15 L with the underlying COPD with exacerbation and cough and Covidpneumonia. Diabetes mellitus with hyperglycemia secondary to steroid dexamethasone and has been adjusted and will continue to adjust depending on the level of blood sugar. And she is monitored. On exam: Patient sitting in bed try to eat her lunch seen and evaluated discussed with her. Patient feel a little better clinically we will advance continue. Head was normocephalic and atraumatic, no infection of the eyes, oropharynx able to eat and swallow. Neck was supple no JVD no thyromegaly no lymphadenopathy. Chest clinical improvement with still presence of inspiratory and expiratory rhonchi's and wheezes, apparently the exchange has been compromised questionable with the effects of pulmonary fibrosis. Heart regular irregularity with atrial fibrillation and controlled ventricular response. The abdomen is soft positive bowel sounds and no tenderness in the 4 quadrant. Extremities no edema positive pulses. Neurologically stable no lateralizing sign. Assessment: Acute hypoxic respiratory failure secondary to Covid19 pneumonia and bronchitis. Acute exacerbation of COPD on the top of chronic. Hyperglycemia with diabetes mellitus uncontrolled due to dexamethasone which he given for her long and as a part of protocol of Covid 19. Coronary artery disease atherosclerotic heart disease Atrial fibrillation currently controlled ventricular response on anticoagulant Coumadin. Coumadin today super therapeutic and was held today. Urinary incontinence. Plan: Continue the antibiotic, continue the steroid, Dr. Jones pulmonary and critical saw her today and he planning for gradual weaning her off. When patient stabilized she request to go home not to [facility]. Patient is not ready yet for discharge with the high flow oxygen. Objective - Vital Signs Vital signs: Vital Signs Temp 97.4 F L 03/18/21 08:00 Pulse 90 03/18/21 08:00 Resp 18 03/18/21 08:00 BP 131/87 03/18/21 08:00 Pulse Ox 91 L 03/18/21 08:00 Intake & Output 03/17/21 03/18/21 03/18/21 18:59 06:59 18:59 Intake Total 750 20 240 Output Total 1075 Balance -325 20 240 Weight 70 kg Intake: IV 10 20 Invasive Line 4 10 20 Oral 740 240 Output: Urine 1075 Uretheral (Pimentel) 600 Other: Voiding Method Indwelling Catheter Bedside Commode Bedside Commode # Voids 1 1 - Labs CBC & Chem 7: 03/15/21 07:50 03/15/21 07:50 Labs: Abnormal Lab Results - Last 24 Hours (Table) 03/17/21 03/17/21 03/18/21 Range/Units 16:48 20:02 04:59 PT 37.5 H (9.0-12.0) sec INR 3.9 H (<1.2) POC Glucose (mg/dL) 476 H 231 H (75-99) mg/dL 03/18/21 Range/Units 06:20 PT (9.0-12.0) sec INR (<1.2) POC Glucose (mg/dL) 102 H (75-99) mg/dL
[2021-03-18 16:39] LABS: Glucose,Whole Blood 301 mg/dL (75-99)
[2021-03-18] MEDS ORDERED: WARFARIN 0.5 MG TAB PO ONE (18:00)
[2021-03-18 20:54] LABS: Glucose,Whole Blood 285 mg/dL (75-99)
[2021-03-19 04:38] LABS: INR 4.1 (<1.2); Prothrombin Time 39.8 sec (9.0-12.0)
[2021-03-19 05:00] LABS: Magnesium 2.7 mg/dL (1.6-2.3); Potassium 4.9 mmol/L (3.5-5.1)
[2021-03-19 06:04] LABS: Glucose,Whole Blood 77 mg/dL (75-99)
[2021-03-19] MEDS: INSULIN ASPART (NovoLOG) 100 UNIT/ML VIAL SQ SCH ×3 (06:22→17:06)
[2021-03-19] MEDS: DILTIAZEM ORAL 60 MG TAB PO SCH ×2 (08:50→20:56)
[2021-03-19] MEDS: METOPROLOL TARTRATE 25 MG TAB PO SCH ×3 (08:50→20:57)
[2021-03-19] MEDS: ZINC SULFATE 220 MG CAP PO SCH (08:50)
[2021-03-19] MEDS: ALBUTEROL HFA INHALER INHALATION SCH ×4 (08:50→21:00)
[2021-03-19] MEDS: ASCORBIC ACID 500 MG TAB PO SCH (08:50)
[2021-03-19] MEDS: ATORVASTATIN 10 MG TAB PO SCH (08:50)
[2021-03-19] MEDS: DEXAMETHASONE SOD PHOSPHATE 10 MG/ML 1 ML VIAL IVP SCH ×2 (08:50→20:56)
[2021-03-19] MEDS: EZETIMIBE 10 MG TAB PO SCH (08:50)
[2021-03-19] MEDS: allopurinoL 100 MG TAB PO SCH (08:50)
[2021-03-19] MEDS: FLUTICASONE 110 MCG INHALER INHALATION SCH ×2 (08:50→21:00)
[2021-03-19] MEDS: CHOLECALCIFEROL 25 MCG (1000 IU) TABLET PO SCH (08:50)
[2021-03-19] MEDS: FUROSEMIDE 10 MG/ML 4 ML VIAL IV SCH (08:51)
[2021-03-19] MEDS: TIOTROPIUM 2.5 MCG INHALER INHALATION SCH (09:38)
[2021-03-19 11:45] LABS: Glucose,Whole Blood 343 mg/dL (75-99)
[2021-03-19] MEDS: INSULIN DETEMIR (LEVEMIR) 100 UNIT/ML SYR SQ SCH ×2 (12:17→20:57)
--- NOTE | 2021-03-19 13:28 | P.PN ---
Subjective Progress Note Date: 03/19/21 Progress note date of service 03/19/[address] Barber. Patient seen and evaluated [id number]. Complained of still shortness of breath or chest, patient on 12 L high flow nasal cannula, still coughing and expectorating and chest discomfort. On exam: She try to eat lunch inability to finish it even with talking and stressed. HEENT no change able to eat and swallow. Neck was supple no JVD no thyromegaly no lymphadenopathy trachea midline. Chest: Inspiratory expiratory rhonchi as well as wheezes and cough. She feels tight for her inspiratory effort using her extra respiratory muscles. Heart regular rhythm irregularities with atrial fibrillation currently controlled response. Abdomen soft positive bowel sounds no organ enlargement Patient has history of abdominal aortic aneurysm has been prepared in [facility] with peripheral vascular disease. No edema. Pulses. Of the lower extremities Neurologically stable. Assessment: #1 multiple medical problems #2 status post cord pneumonia and bronchitis has been finished Remdesivir, still on dexamethasone twice a day with hyperglycemia we'll try to adjust the insulin without having hypoglycemia. #2 COPD with acute exacerbation. #3 acute hypoxic respiratory failure on the top of chronic she currently on high flow oxygen 12 L/m. #4 atrial fibrillation. Of the ventricular response, currently controlled. #5 underlying congestive heart failure biventricular was mild elevation of troponin on admission. 6 history of abdominal aortic aneurysm with repair in [facility]. #7 coronary artery disease atherosclerotic heart disease. #8 pulmonary hypertension. Plan: We'll continue the current treatment, currently followed by pulmonary and critical care Dr. Jones this week and the trying to help the patient so far her prognosis is guarded. Reassess on her chemistry profile and CBC with differential and lactic acid with the labs in a.m. ( Objective - Vital Signs Vital signs: Vital Signs Temp 97.9 F 03/19/21 12:10 Pulse 69 03/19/21 12:10 Resp 31 H 03/19/21 12:10 BP 131/78 03/19/21 12:10 Pulse Ox 95 03/19/21 12:10 Intake & Output 03/18/21 03/19/21 03/19/21 18:59 06:59 18:59 Intake Total 840 100 240 Balance 840 100 240 Weight 70 kg 70.5 kg Intake: Oral 840 100 240 Other: Voiding Method Bedside Commode Bedside Commode Bedside Commode # Voids 1 1 1 # Bowel Movements 1 - Labs CBC & Chem 7: 03/15/21 07:50 03/19/21 04:01 Labs: Abnormal Lab Results - Last 24 Hours (Table) 03/18/21 03/18/21 03/19/21 Range/Units 16:38 20:51 04:01 PT 39.8 H (9.0-12.0) sec INR 4.1 H (<1.2) POC Glucose (mg/dL) 301 H 285 H (75-99) mg/dL Magnesium (1.6-2.3) mg/dL 03/19/21 03/19/21 Range/Units 04:01 11:44 PT (9.0-12.0) sec INR (<1.2) POC Glucose (mg/dL) 343 H (75-99) mg/dL Magnesium 2.7 H (1.6-2.3) mg/dL
--- NOTE | 2021-03-19 13:45 | CDI ---
Documentation Clarification Form Date: 03/18/2021 09:46:58 AM From: Lydia Moya RN CCDS Admit Date: 03/12/2021 11:42:00 AM Patient Name: Sandie Virk Visit Number: [id number] Discharge Date: ATTENTION: The Clinical Documentation Specialists (CDI) and [facility] Coding Staff appreciate your assistance in clarifying documentation. Please respond to the clarification below the line at the bottom and electronically sign. The CDI & [facility] Coding staff will review the response and follow-up if needed. Please note: Queries are made part of the Legal Health Record. If you have any questions, please contact the author of this message via ITS. Dr. Markus Jones There is documentation of urinary tract infection, 03/16 & 03/17, Pharmacoepidemiologist progress notes. Additional clarification is requested. History/Risk Factors: 89-year-old female presents to the ED with shortness of breath, dyspnea, orthopnea and coughing. Medical History: COPD, Urinary incontinence and tested positive one week ago for COVID 19. 03/12, H&P Clinical Indicators: VSS: 03/12 B/P 160/115; HR 136; Temp 98.1; RR 30; SpO2 97% Non-Rebreather 15L LABS: 03/12 Wbc 12.9; Neutrophils 10.7; D-dimer 1.52; Lactic 2.2; Procalcitonin 0.07 CXR: 03/12 Correlate for pneumonia, interstitial edema and CHF, there may be underlying COPD. H&P: 03/12 Patient already on dexamethasone and because of the underlying suspicious of infection and pneumonia with the leukocytosis with started patient on Rocephin 1g every 12 hour. Treatment: 03/12 dcd 03/12 Ceftriaxone Sodium 1gm IVPB Q12H; 03/12 to current Ceftriaxone Sodium 1gm IVPB Q12HR Can you please clarify Urinary tract infection? [ ] Urinary tract infection ruled out [ ] Urinary tract infection POA [ ] Urinary tract infection due to cope catheter [ ] Other, please specify [ X] Unable to determine (Template Last Revised: June 2020) MTDD
--- NOTE | 2021-03-19 14:59 | P.PN ---
Subjective Progress Note Date: 03/19/21 Principal diagnosis: Coronavirus associated pneumonia. On 03/16/2021 patient seen in follow-up on selective care unit, today she is on 15 L per high flow nasal cannula, she is not using the nonrebreather mask in addition to the high flow nasal cannula as she was yesterday, she is breathing more comfortably, her pulse ox is 92-94%. She's been afebrile, hemodynamically she is been stable, she is awake and alert, she is responding appropriately, she is overall weak, but appears to be in no acute distress. Her last chest x-ray from 03/14/2021 showed scattered reticulonodular infiltrates bilaterally, currently patient is on Decadron 6 mg twice daily, she is on IV Lasix 40 mg daily, COVID-19 vitamins, and ceftriaxone for a urinary tract infection, she is on Coumadin for anticoagulation and today's INR is 2.5. Progress note dated 03/17/2021. 85-year-old female, again seen in room 361. The patient is currently on 15 L high flow nasal cannula. She's not receiving any IV fluids. The patient has a nonrebreather mask at the bedside, but is not using it. She is very frail appearing. She is a no code, which is good. She does appear to have some mild respiratory difficulty. No new labs today other than a glucose of 476. No new chest x-rays to review. The patient's on vitamin C, vitamin D3, and zinc. The patient is also on Coumadin, and Decadron. The patient is also on Rocephin. Progress note dated 03/18/2021. 85-year-old female, again seen in room 361. Currently, the patient's on 12 L high flow nasal O2. Yesterday, she was on 15 L high flow nasal O2. Despite her high oxygen requirements, she does not appear to be in any distress. She is a DO NOT RESUSCITATE patient. She is very weak and frail appearing. The patient continues on vitamin C, vitamin D3, zinc, as well as Decadron, and Coumadin. Today's PT INR were 37.5 and 3.9 respectively. The sugar today was 99. No recent chest x-ray to report. Progress note dated 03/19/2021. 85-year-old female, again seen in room 361. Currently, the patient is receiving saline at 10 mL an hour. In addition, the patient is on 12 L high flow nasal O2. She has a very wet cough. She remains on vitamin C, vitamin D3, and zinc. In addition, the patient is on Decadron 6 mg twice a day, and warfarin. The patient is a DO NOT RESUSCITATE patient. She is very frail. I don't know that she is feeling make it through this hospitalization. Laboratory data today includes a PT of 39.8 and an INR of 4.1, potassium 4.9, and a magnesium of 2.7. Objective - Vital Signs Vital signs: Vital Signs Temp 97.9 F 03/19/21 12:10 Pulse 69 03/19/21 12:10 Resp 31 H 03/19/21 12:10 BP 131/78 03/19/21 12:10 Pulse Ox 95 03/19/21 12:10 Intake & Output 03/18/21 03/19/21 03/19/21 18:59 06:59 18:59 Intake Total 840 100 480 Balance 840 100 480 Weight 70 kg 70.5 kg Intake: Oral 840 100 480 Other: Voiding Method Bedside Commode Bedside Commode Bedside Commode # Voids 1 1 1 # Bowel Movements 1 - Exam Very lethargic. Mild increase in respiratory rate. The patient is extremely frail appearing. Currently on 12 L high flow nasal cannula. Saturations are 95%. HEENT examination is grossly unremarkable. Neck supple. Full range of motion. No adenopathy thyromegaly or neck vein distention. Cardiovascular examination reveals regular rhythm rate. S1-S2 normal. No S3 or S4. No discernible murmur noted. Heart sounds are distant. Heart rate 69 bpm. Lungs reveal diminished breath sounds throughout. The patient does not take deep breaths. Scattered rhonchi are noted. No crackles. No wheezes. Abdomen soft bowel sounds are heard. No masses or tenderness. Extremities are intact. No cyanosis clubbing or edema. Skin is without rash or lesion. Neurologic examination is brief but nonfocal. - Labs CBC & Chem 7: 03/15/21 07:50 03/19/21 04:01 Labs: Abnormal Lab Results - Last 24 Hours (Table) 03/18/21 03/18/21 03/19/21 Range/Units 16:38 20:51 04:01 PT 39.8 H (9.0-12.0) sec INR 4.1 H (<1.2) POC Glucose (mg/dL) 301 H 285 H (75-99) mg/dL Magnesium (1.6-2.3) mg/dL 03/19/21 03/19/21 Range/Units 04:01 11:44 PT (9.0-12.0) sec INR (<1.2) POC Glucose (mg/dL) 343 H (75-99) mg/dL Magnesium 2.7 H (1.6-2.3) mg/dL Assessment and Plan Assessment: Acute hypoxemic respiratory failure secondary to coronavirus associated pneumonia. Possible acute exacerbation of CHF. Atrial fibrillation with RVR, currently on Coumadin. History of diastolic and systolic CHF. History of COPD, currently on home O2 at 2 L. Hypertension. Hyperlipidemia. Plan: Plan dated 03/17/2021. The patient remains on high flow nasal O2. Saturations are in the low 90s. She did complete her course of REM. She remains on Decadron, and Coumadin. Additional recommendations and suggestions are forthcoming. She also remains on vitamin C, vitamin D3, and zinc. The patient is a no code. She is very frail appearing. We will continue to follow make recommendations where appropriate. Plan dated 03/18/2021. The patient remains on vitamin C, vitamin D3, and zinc. In addition, the pat ient's on Decadron, and Coumadin. The Decadron is at 6 mg twice a day. Currently, her INR is a bit elevated. Microbiologic studies are thus far negative are pending. Her pro-calcitonin level is very low, and hence, the antibiotic was discontinued. We will continue to follow. The patient is a no code. Additional recommendations and suggestions are forthcoming. Prognosis is very poor. Plan dated 03/19/2021. The patient remains on Decadron, Coumadin, and usual vitamins. The patient is on 12 L high flow nasal cannula. She's also receiving saline at 10 mL an hour. The patient is very frail. Her respiratory rate is a bit increased today. She is a DO NOT RESUSCITATE patient. Labs are reviewed. Medications are reviewed. X-rays are reviewed. Prognosis is very poor. We will continue to follow make recommendations where appropriate. Time with Patient: Less than 30
[2021-03-19 16:50] LABS: Glucose,Whole Blood 222 mg/dL (75-99)
[2021-03-19] MEDS: ACETAMINOPHEN TAB 325 MG TAB PO PRN (17:05)
[2021-03-19] MEDS ORDERED: WARFARIN 0.5 MG TAB PO ONE (18:00)
[2021-03-19 20:21] LABS: Glucose,Whole Blood 229 mg/dL (75-99)
[2021-03-19] MEDS ORDERED: IOPAMIDOL CONTRAST (ORAL USE) VIAL PO PRN (20:49)
[2021-03-19 20:59] LABS: Glucose,Whole Blood 227 mg/dL (75-99)
[2021-03-19] MEDS: MORPHINE SULFATE 2 MG/ML SYRINGE IVP PRN (21:11)
--- NOTE | 2021-03-19 23:00 | CT ---
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 CONTRAST: Performed with IV Contrast, patient injected with 80 mL of Isovue 370. There are 3-D post processed images. Images obtained from the diaphragm to the floor the pelvis witho ut and with IV contrast. There is an enlarged heart. There is no pericardial effusion. There are fibrotic changes and atelecta sis at the lung bases. There is reflux of contrast into the inferior vena cava consistent with heart failure. There is hiata l hernia noted. Liver and spleen are intact. 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 There is no pancreatic mass. Gallbladder appears normal. The bile ducts are not dilated. There is 4.1 cm aneurysm of the upper abdominal aorta. There is stent in the lower abdomen aorta and the saeed c arteries. There is thrombus in the lower abdominal aortic aneurysm which measures up to 4.1 cm. The re is contrast opacification of the stent and the iliac and femoral arteries. There is extensive plaq ue formation in the iliac and femoral arteries. There is no evidence of any significant adrenal mass. There is some mild renal cortical thinning on t he right side. There is small areas of cortical decreased enhancement right kidney compared to the le ft. There are small renal cortical cysts measuring up to 2 cm. there is no hydronephrosis. There is n o retroperitoneal adenopathy. There are numerous sigmoid diverticula. I see no diverticulitis. There is no evidence of contrast ext ravasation. There is no inguinal hernia. There is no mesenteric edema. There is no ascites or free air. There is no bowel obstruction. There is significant plaque formation at the origin of the superior mesenteric artery and probably mo re than 80% stenosis. There is patency of the celiac artery without significant stenosis at the origi n. The renal arteries and the origins are not well evaluated on this exam. 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 Aneurysm not changed in size compared to 08/14/2020. There is some right renal atrophy suggesti ve of some chronic ischemia. 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 No evidence of leaking aneurysm. No evidence of active GI bleeding. Extensive colonic diverticulosis without diverticulitis. Moderate cardiomegaly. There is probably some degree of congestive heart failure.
[2021-03-20] MEDS: MORPHINE SULFATE 2 MG/ML SYRINGE IVP PRN ×2 (01:06→09:43)
[2021-03-20 05:53] LABS: Glucose,Whole Blood 81 mg/dL (75-99)
[2021-03-20] MEDS: INSULIN ASPART (NovoLOG) 100 UNIT/ML VIAL SQ SCH ×3 (06:04→17:05)
[2021-03-20 08:08] LABS: Anisocytosis Slight; Basophils % (A) 0 %; Eosinophils # (A) 0.1 k/uL (0-0.7); Eosinophils % (A) 0 %; HCT 53.9 % (34.0-46.0); HGB 16.6 gm/dL (11.4-16.0); Hypochromasia Moderate; Lymphocytes # (A) 0.5 k/uL (1.0-4.8); Lymphocytes % (A) 3 %; MCH 28.5 pg (25.0-35.0); MCHC 30.7 g/dL (31.0-37.0); MCV 92.8 fL (80.0-100.0); Monocytes # (A) 0.4 k/uL (0-1.0); Monocytes % (A) 2 %; Neutrophils # (A) 16.5 k/uL (1.3-7.7); Neutrophils % (A) 94 %; Platelet Count 273 k/uL (150-450); RBC 5.81 m/uL (3.80-5.40); RDW 16.4 % (11.5-15.5); WBC 17.5 k/uL (3.8-10.6)
[2021-03-20 08:13] LABS: INR 3.9 (<1.2); Prothrombin Time 37.3 sec (9.0-12.0)
[2021-03-20 08:46] LABS: Albumin 2.9 g/dL (3.5-5.0); Calcium 8.3 mg/dL (8.4-10.2); Potassium 5.1 mmol/L (3.5-5.1); Total Bilirubin 0.8 mg/dL (0.2-1.3); Total Protein 5.9 g/dL (6.3-8.2)
[2021-03-20] MEDS: ALBUTEROL HFA INHALER INHALATION SCH ×4 (09:05→21:17)
[2021-03-20] MEDS: FLUTICASONE 110 MCG INHALER INHALATION SCH ×2 (09:06→21:17)
[2021-03-20] MEDS: TIOTROPIUM 2.5 MCG INHALER INHALATION SCH (09:09)
[2021-03-20] MEDS: INSULIN DETEMIR (LEVEMIR) 100 UNIT/ML SYR SQ SCH ×2 (09:25→20:23)
[2021-03-20] MEDS: ATORVASTATIN 10 MG TAB PO SCH (09:26)
[2021-03-20] MEDS: ASCORBIC ACID 500 MG TAB PO SCH (09:26)
[2021-03-20] MEDS: CHOLECALCIFEROL 25 MCG (1000 IU) TABLET PO SCH (09:26)
[2021-03-20] MEDS: DILTIAZEM ORAL 60 MG TAB PO SCH ×2 (09:26→20:23)
[2021-03-20] MEDS: METOPROLOL TARTRATE 25 MG TAB PO SCH ×3 (09:26→20:23)
[2021-03-20] MEDS: allopurinoL 100 MG TAB PO SCH (09:26)
[2021-03-20] MEDS: FUROSEMIDE 10 MG/ML 4 ML VIAL IV SCH (09:26)
[2021-03-20] MEDS: DEXAMETHASONE SOD PHOSPHATE 10 MG/ML 1 ML VIAL IVP SCH ×2 (09:27→20:23)
[2021-03-20] MEDS: EZETIMIBE 10 MG TAB PO SCH (09:27)
[2021-03-20] MEDS: ZINC SULFATE 220 MG CAP PO SCH (09:43)
[2021-03-20 11:33] LABS: Glucose,Whole Blood 300 mg/dL (75-99)
[2021-03-20] MEDS ORDERED: INSULIN ASPART (NovoLOG) 100 UNIT/ML VIAL SQ ONE ×2 (12:45→16:32)
--- NOTE | 2021-03-20 13:34 | P.PN ---
Subjective Progress Note Date: 03/20/21 (Abdominal pain, abdominal aneurysms.) Progress note, date of service 03/20/2021. Dictation by Dr. Li. Patient seen today evaluated [id number]. Lost night event, patient complained of abdominal pain nursing staff called me JANES Madison with a history of lower abdominal aneurysm repaired with stent in [facility] with a pulse lamp for iliac, patient Senda for computed tomography scan with contrast during the night. Patient still have abdominal discomfort but not severe pain in the upper a bdomen. The computed tomography scan was contrast indicating aneurysm of the upper abdomen of the aorta and the lower abdominal aorta with the endograft in good position, the aneurysm did not change from 08/14/2020. She had a right renal atrophy suggested of chronic ischemia. 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 No evidence of leaking aneurysm. No evidence of active GI bleeding. Extensive colonic diverticulosis without diverticulitis. Moderate cardiomegaly with probably some degree of congestive heart failure read by Dr. Chuck Mary M.D. at 2300 on 03/19/2021. 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 This patient seen today evaluated and discussed with the current problem she still in severe shortness of breath and she had rhonchi's and wheezes inspiratory expiratory. She will be seen in the pulmonary today as well, and the question is if the patient needed to be supple without with a bronchoscopy or not. Her vital sign temperature 97.5 oral, pulse 74 bpm regular irregularities with atrial fibrillation. Her respiratory rate is 22 bpm, and blood pressure 130/74, pulse ox 93% on high flow oxygen 12 L/m. Her white count 17.5 with leukocytosis no left shift. Her hemoglobin is 16.6 and/hematocrit 53.9 with a MCV 92.8 Pro time 37.3/INR 3.9 and no Coumadin today which are monitored by pharmacy. Electrolyte sodium 137, potassium 5.1, chloride 97, carbon dioxide 37, BUN 51 associated with a steroid creatinine 0.82 blood sugar 160 3 in the morning which is reasonable with no hypoglycemia. On the On exam she is conscious alert oriented and she was able to eat breakfast with very few spoons of with the underlying respiratory distress and her chest is musical. HEENT no changes, oropharynx able to eat but no appetite and a few bites. Neck was supple no JVD no thyromegaly no lymphadenopathy trachea midline. Chest: With the advanced rhonchi's and no wheezes and musical with the crackles it makes me thinking of secretion. Heart: Irregular irregularity was at [place] fibrillation, controlled ventricular response, impaired ejection fraction. Abdomen minimal epigastric discomfort with palpation, CAT scan of the abdomen was done with the underlying upper abdominal aneurysm other than the one has been taking care of in [facility]. Extremities: No edema and pulses 1+ over 2+ bilateral with the underlying peripheral vascular disease. Neurologically no lateralizing sign, stable. Assessment: #1 agitated discuss it with her daughter yesterday on the phone after hours #2 prognosis is still guarded with the multiple medical problem #3 Covid-19 associated pneumonia and bronchitis #4 acute hypoxic respiratory failure on the top of chronic. #5 underlying acute exacerbation of COPD on the top of chronic. #6 hyper glycemia and mobile blood glucose with a hemoglobin A1c stable due to low dexamethasone IV twice a day for the treatment of her lung. 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 #10 no evidence of leaking aneurysm and no GI bleeding. 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 #11 this is added to other medical problem. Chronically present Plan: #1 supportive care #2 no CPR and no resuscitation #3 pulmonary has been following the patient to try her best. #4 prognosis is poor/guarded. For the abdominal pain patient started on morphine 1-2 mg every 3-4 hour when necessary for abdominal pain. Objective - Vital Signs Vital signs: Vital Signs Temp 97.5 F L 03/20/21 12:00 Pulse 74 03/20/21 12:00 Resp 22 03/20/21 12:00 BP 130/74 03/20/21 12:00 Pulse Ox 93 L 03/20/21 12:00 Intake & Output 03/19/21 03/20/21 03/20/21 18:59 06:59 18:59 Intake Total 480 118 Output Total 550 Balance 480 -432 Weight 70.5 kg Intake: Oral 480 118 Output: Urine 550 Other: Voiding Method Bedside Commode Bedside Commode External Catheter Incontinent External Catheter # Voids 1 2 # Bowel Movements 1 - Labs CBC & Chem 7: 03/20/21 07:51 03/20/21 07:51 Labs: Abnormal Lab Results - Last 24 Hours (Table) 03/19/21 03/19/21 03/19/21 Range/Units 16:49 20:19 20:47 WBC (3.8-10.6) k/uL RBC (3.80-5.40) m/uL Hgb (11.4-16.0) gm/dL Hct (34.0-46.0) % MCHC (31.0-37.0) g/dL RDW (11.5-15.5) % Neutrophils # (1.3-7.7) k/uL Lymphocytes # (1.0-4.8) k/uL PT (9.0-12.0) sec INR (<1.2) Chloride (98-107) mmol/L Carbon Dioxide (22-30) mmol/L BUN (7-17) mg/dL Glucose (74-99) mg/dL POC Glucose (mg/dL) 222 H 229 H 227 H (75-99) mg/dL Calcium (8.4-10.2) mg/dL ALT (4-34) U/L Total Protein (6.3-8.2) g/dL Albumin (3.5-5.0) g/dL 03/20/21 03/20/21 03/20/21 Range/Units 07:51 07:51 07:51 WBC 17.5 H (3.8-10.6) k/uL RBC 5.81 H (3.80-5.40) m/uL Hgb 16.6 H (11.4-16.0) gm/dL Hct 53.9 H (34.0-46.0) % MCHC 30.7 L (31.0-37.0) g/dL RDW 16.4 H (11.5-15.5) % Neutrophils # 16.5 H (1.3-7.7) k/uL Lymphocytes # 0.5 L (1.0-4.8) k/uL PT 37.3 H (9.0-12.0) sec INR 3.9 H (<1.2) Chloride 97 L (98-107) mmol/L Carbon Dioxide 37 H (22-30) mmol/L BUN 51 H (7-17) mg/dL Glucose 163 H (74-99) mg/dL POC Glucose (mg/dL) (75-99) mg/dL Calcium 8.3 L (8.4-10.2) mg/dL ALT 38 H (4-34) U/L Total Protein 5.9 L (6.3-8.2) g/dL Albumin 2.9 L (3.5-5.0) g/dL 03/20/21 Range/Units 11:32 WBC (3.8-10.6) k/uL RBC (3.80-5.40) m/uL Hgb (11.4-16.0) gm/dL Hct (34.0-46.0) % MCHC (31.0-37.0) g/dL RDW (11.5-15.5) % Neutrophils # (1.3-7.7) k/uL Lymphocytes # (1.0-4.8) k/uL PT (9.0-12.0) sec INR (<1.2) Chloride (98-107) mmol/L Carbon Dioxide (22-30) mmol/L BUN (7-17) mg/dL Glucose (74-99) mg/dL POC Glucose (mg/dL) 300 H (75-99) mg/dL Calcium (8.4-10.2) mg/dL ALT (4-34) U/L Total Protein (6.3-8.2) g/dL Albumin (3.5-5.0) g/dL
--- NOTE | 2021-03-20 14:35 | P.PN ---
Subjective Progress Note Date: 03/20/21 Principal diagnosis: Coronavirus associated pneumonia. On 03/16/2021 patient seen in follow-up on selective care unit, today she is on 15 L per high flow nasal cannula, she is not using the nonrebreather mask in addition to the high flow nasal cannula as she was yesterday, she is breathing more comfortably, her pulse ox is 92-94%. She's been afebrile, hemodynamically she is been stable, she is awake and alert, she is responding appropriately, she is overall weak, but appears to be in no acute distress. Her last chest x-ray from 03/14/2021 showed scattered reticulonodular infiltrates bilaterally, currently patient is on Decadron 6 mg twice daily, she is on IV Lasix 40 mg daily, COVID-19 vitamins, and ceftriaxone for a urinary tract infection, she is on Coumadin for anticoagulation and today's INR is 2.5. Progress note dated 03/17/2021. 85-year-old female, again seen in room 361. The patient is currently on 15 L high flow nasal cannula. She's not receiving any IV fluids. The patient has a nonrebreather mask at the bedside, but is not using it. She is very frail appearing. She is a no code, which is good. She does appear to have some mild respiratory difficulty. No new labs today other than a glucose of 476. No new chest x-rays to review. The patient's on vitamin C, vitamin D3, and zinc. The patient is also on Coumadin, and Decadron. The patient is also on Rocephin. Progress note dated 03/18/2021. 85-year-old female, again seen in room 361. Currently, the patient's on 12 L high flow nasal O2. Yesterday, she was on 15 L high flow nasal O2. Despite her high oxygen requirements, she does not appear to be in any distress. She is a DO NOT RESUSCITATE patient. She is very weak and frail appearing. The patient continues on vitamin C, vitamin D3, zinc, as well as Decadron, and Coumadin. Today's PT INR were 37.5 and 3.9 respectively. The sugar today was 99. No recent chest x-ray to report. Progress note dated 03/19/2021. 85-year-old female, again seen in room 361. Currently, the patient is receiving saline at 10 mL an hour. In addition, the patient is on 12 L high flow nasal O2. She has a very wet cough. She remains on vitamin C, vitamin D3, and zinc. In addition, the patient is on Decadron 6 mg twice a day, and warfarin. The patient is a DO NOT RESUSCITATE patient. She is very frail. I don't know that she is feeling make it through this hospitalization. Laboratory data today includes a PT of 39.8 and an INR of 4.1, potassium 4.9, and a magnesium of 2.7. Progress note dated 03/20/2021. 85-year-old female, seen in room 361. He is currently on saline at 30 mL an hour. She's getting 12 L high flow oxygen. Today, her sodium was 137, potassium 5.1, chlorides 97, CO2 37, BUN 51, and creatinine 0.82. INR is 3.9. White count 17.5, hemoglobin 16.6, hematocrit 53.9, and platelet count 273,000. Clinically, the patient continues to appear to be very weak and frail. She did not appear to be in any respiratory distress. The patient continues on vitamin C, vitamin D3, and zinc. In addition, she is on Decadron 6 mg a day. Objective - Vital Signs Vital signs: Vital Signs Temp 97.5 F L 03/20/21 12:00 Pulse 74 03/20/21 12:00 Resp 22 03/20/21 12:00 BP 130/74 03/20/21 12:00 Pulse Ox 93 L 03/20/21 12:00 Intake & Output 03/19/21 03/20/21 03/20/21 18:59 06:59 18:59 Intake Total 480 236 Output Total 550 Balance 480 -314 Weight 70.5 kg Intake: Oral 480 236 Output: Urine 550 Other: Voiding Method Bedside Commode Bedside Commode External Catheter Incontinent External Catheter # Voids 1 2 # Bowel Movements 1 - Exam Very lethargic. Mild increase in respiratory rate. The patient is extremely frail appearing. Currently on 12 L high flow nasal cannula. Saturations are 93%. HEENT examination is grossly unremarkable. Neck supple. Full range of motion. No adenopathy thyromegaly or neck vein distention. Cardiovascular examination reveals regular rhythm rate. S1-S2 normal. No S3 or S4. No discernible murmur noted. Heart sounds are distant. Heart rate 74 bpm. Lungs reveal diminished breath sounds throughout. The patient does not take deep breaths. Scattered rhonchi are noted. No crackles. No wheezes. Abdomen soft bowel sounds are heard. No masses or tenderness. Extremities are intact. No cyanosis clubbing or edema. Skin is without rash or lesion. Neurologic examination is brief but nonfocal. - Labs CBC & Chem 7: 03/20/21 07:51 03/20/21 07:51 Labs: Abnormal Lab Results - Last 24 Hours (Table) 03/19/21 03/19/21 03/19/21 Range/Units 16:49 20:19 20:47 WBC (3.8-10.6) k/uL RBC (3.80-5.40) m/uL Hgb (11.4-16.0) gm/dL Hct (34.0-46.0) % MCHC (31.0-37.0) g/dL RDW (11.5-15.5) % Neutrophils # (1.3-7.7) k/uL Lymphocytes # (1.0-4.8) k/uL PT (9.0-12.0) sec INR (<1.2) Chloride (98-107) mmol/L Carbon Dioxide (22-30) mmol/L BUN (7-17) mg/dL Glucose (74-99) mg/dL POC Glucose (mg/dL) 222 H 229 H 227 H (75-99) mg/dL Calcium (8.4-10.2) mg/dL ALT (4-34) U/L Total Protein (6.3-8.2) g/dL Albumin (3.5-5.0) g/dL 03/20/21 03/20/21 03/20/21 Range/Units 07:51 07:51 07:51 WBC 17.5 H (3.8-10.6) k/uL RBC 5.81 H (3.80-5.40) m/uL Hgb 16.6 H (11.4-16.0) gm/dL Hct 53.9 H (34.0-46.0) % MCHC 30.7 L (31.0-37.0) g/dL RDW 16.4 H (11.5-15.5) % Neutrophils # 16.5 H (1.3-7.7) k/uL Lymphocytes # 0.5 L (1.0-4.8) k/uL PT 37.3 H (9.0-12.0) sec INR 3.9 H (<1.2) Chloride 97 L (98-107) mmol/L Carbon Dioxide 37 H (22-30) mmol/L BUN 51 H (7-17) mg/dL Glucose 163 H (74-99) mg/dL POC Glucose (mg/dL) (75-99) mg/dL Calcium 8.3 L (8.4-10.2) mg/dL ALT 38 H (4-34) U/L Total Protein 5.9 L (6.3-8.2) g/dL Albumin 2.9 L (3.5-5.0) g/dL 03/20/21 Range/Units 11:32 WBC (3.8-10.6) k/uL RBC (3.80-5.40) m/uL Hgb (11.4-16.0) gm/dL Hct (34.0-46.0) % MCHC (31.0-37.0) g/dL RDW (11.5-15.5) % Neutrophils # (1.3-7.7) k/uL Lymphocytes # (1.0-4.8) k/uL PT (9.0-12.0) sec INR (<1.2) Chloride (98-107) mmol/L Carbon Dioxide (22-30) mmol/L BUN (7-17) mg/dL Glucose (74-99) mg/dL POC Glucose (mg/dL) 300 H (75-99) mg/dL Calcium (8.4-10.2) mg/dL ALT (4-34) U/L Total Protein (6.3-8.2) g/dL Albumin (3.5-5.0) g/dL Assessment and Plan Assessment: Acute hypoxemic respiratory failure secondary to coronavirus associated pneumonia. Possible acute exacerbation of CHF. Atrial fibrillation with RVR, currently on Coumadin. History of diastolic and systolic CHF. History of COPD, currently on home O2 at 2 L. Hypertension. Hyperlipidemia. Plan: Plan dated 03/17/2021. The patient remains on high flow nasal O2. Saturations are in the low 90s. She did complete her course of REM. She remains on Decadron, and Coumadin. Additional recommendations and suggestions are forthcoming. She also remains on vitamin C, vitamin D3, and zinc. The patient is a no code. She is very frail appearing. We will continue to follow make recommendations where appropriate. Plan dated 03/18/2021. The patient remains on vitamin C, vitamin D3, and zinc. In addition, the patient's on Decadron, and Coumadin. The Decadron is at 6 mg twice a day. Currently, her INR is a bit elevated. Microbiologic studies are thus far negative are pending. Her pro-calcitonin level is very low, and hence, the antibiotic was discontinued. We will continue to follow. The patient is a no code. Additional recommendations and suggestions are forthcoming. Prognosis is very poor. Plan dated 03/19/2021. The patient remains on Decadron, Coumadin, and usual vitamins. The patient is on 12 L high flow nasal cannula. She's also receiving saline at 10 mL an hour. The patient is very frail. Her respiratory rate is a bit increased today. She is a DO NOT RESUSCITATE patient. Labs are reviewed. Medications are reviewed. X-rays are reviewed. Prognosis is very poor. We will continue to follow make recommendations where appropriate. Plan dated 03/20/2021. Labs, x-rays, and medications are all reviewed. Her INR is down to 3.9. She remains on 12 L high flow O2, and receiving saline at 30 mL an hour. BUN and creatinine 51 and 0.82 respectively. I will continue to follow make recommendations where appropriate. She is a DO NOT RESUSCITATE patient. She remains on Decadron, Coumadin, and usual vitamins, but she is extremely frail appearing, and could deteriorate at any time. Prognosis is guarded. Time with Patient: Less than 30
[2021-03-20 16:29] LABS: Glucose,Whole Blood 308 mg/dL (75-99)
[2021-03-20] MEDS ORDERED: WARFARIN 0.5 MG TAB PO ONE (18:00)
[2021-03-20 20:13] LABS: Glucose,Whole Blood 248 mg/dL (75-99)
[2021-03-21 06:55] LABS: Glucose,Whole Blood 144 mg/dL (75-99)
[2021-03-21 06:57] LABS: INR 2.8 (<1.2)
[2021-03-21] MEDS: INSULIN ASPART (NovoLOG) 100 UNIT/ML VIAL SQ SCH ×3 (06:57→17:17)
[2021-03-21] MEDS: EZETIMIBE 10 MG TAB PO SCH (09:13)
[2021-03-21] MEDS: METOPROLOL TARTRATE 25 MG TAB PO SCH ×3 (09:13→21:13)
[2021-03-21] MEDS: ATORVASTATIN 10 MG TAB PO SCH (09:14)
[2021-03-21] MEDS: ZINC SULFATE 220 MG CAP PO SCH (09:14)
[2021-03-21] MEDS: CHOLECALCIFEROL 25 MCG (1000 IU) TABLET PO SCH (09:14)
[2021-03-21] MEDS: allopurinoL 100 MG TAB PO SCH (09:14)
[2021-03-21] MEDS: FUROSEMIDE 10 MG/ML 4 ML VIAL IV SCH (09:14)
[2021-03-21] MEDS: DILTIAZEM ORAL 60 MG TAB PO SCH ×2 (09:14→21:13)
[2021-03-21] MEDS: ASCORBIC ACID 500 MG TAB PO SCH (09:14)
[2021-03-21] MEDS: DEXAMETHASONE SOD PHOSPHATE 10 MG/ML 1 ML VIAL IVP SCH ×2 (09:14→21:14)
[2021-03-21] MEDS: INSULIN DETEMIR (LEVEMIR) 100 UNIT/ML SYR SQ SCH ×2 (09:15→21:14)
[2021-03-21] MEDS: FLUTICASONE 110 MCG INHALER INHALATION SCH ×2 (09:23→20:13)
[2021-03-21] MEDS: ALBUTEROL HFA INHALER INHALATION SCH ×4 (09:23→20:13)
[2021-03-21] MEDS: TIOTROPIUM 2.5 MCG INHALER INHALATION SCH (09:23)
[2021-03-21] MEDS: MORPHINE SULFATE 2 MG/ML SYRINGE IVP PRN (09:34)
--- NOTE | 2021-03-21 10:03 | XR ---
EXAMINATION TYPE: XR chest 1V portable DATE OF EXAM: 03/21/2021 CLINICAL HISTORY: Difficulty breathing and covid. Progress study. TECHNIQUE: Single AP portable upright view of the chest is obtained. COMPARISON: Chest x-ray from one week earlier and older studies. FINDINGS: Osseous structures are demineralized. Cardiac silhouette size stable and mildly enlarged w ith atherosclerotic and ectatic thoracic aorta. Chronic parenchymal changes with areas of increased o pacity bilaterally in the mid to lower lungs redemonstrated. IMPRESSION: Cardiomegaly and chronic parenchymal changes with areas of increased opacity bilaterally in the mid to lower lungs redemonstrated suggesting covid-19 infiltrates and/or edema. No significant change from most recent x-ray.
[2021-03-21 11:51] LABS: Glucose,Whole Blood 119 mg/dL (75-99)
--- NOTE | 2021-03-21 12:26 | P.PN ---
Subjective Progress Note Date: 03/21/21 Principal diagnosis: Coronavirus associated pneumonia. On 03/16/2021 patient seen in follow-up on selective care unit, today she is on 15 L per high flow nasal cannula, she is not using the nonrebreather mask in addition to the high flow nasal cannula as she was yesterday, she is breathing more comfortably, her pulse ox is 92-94%. She's been afebrile, hemodynamically she is been stable, she is awake and alert, she is responding appropriately, she is overall weak, but appears to be in no acute distress. Her last chest x-ray from 03/14/2021 showed scattered reticulonodular infiltrates bilaterally, currently patient is on Decadron 6 mg twice daily, she is on IV Lasix 40 mg daily, COVID-19 vitamins, and ceftriaxone for a urinary tract infection, she is on Coumadin for anticoagulation and today's INR is 2.5. Progress note dated 03/17/2021. 85-year-old female, again seen in room 361. The patient is currently on 15 L high flow nasal cannula. She's not receiving any IV fluids. The patient has a nonrebreather mask at the bedside, but is not using it. She is very frail appearing. She is a no code, which is good. She does appear to have some mild respiratory difficulty. No new labs today other than a glucose of 476. No new chest x-rays to review. The patient's on vitamin C, vitamin D3, and zinc. The patient is also on Coumadin, and Decadron. The patient is also on Rocephin. Progress note dated 03/18/2021. 85-year-old female, again seen in room 361. Currently, the patient's on 12 L high flow nasal O2. Yesterday, she was on 15 L high flow nasal O2. Despite her high oxygen requirements, she does not appear to be in any distress. She is a DO NOT RESUSCITATE patient. She is very weak and frail appearing. The patient continues on vitamin C, vitamin D3, zinc, as well as Decadron, and Coumadin. Today's PT INR were 37.5 and 3.9 respectively. The sugar today was 99. No recent chest x-ray to report. Progress note dated 03/19/2021. 85-year-old female, again seen in room 361. Currently, the patient is receiving saline at 10 mL an hour. In addition, the patient is on 12 L high flow nasal O2. She has a very wet cough. She remains on vitamin C, vitamin D3, and zinc. In addition, the patient is on Decadron 6 mg twice a day, and warfarin. The patient is a DO NOT RESUSCITATE patient. She is very frail. I don't know that she is feeling make it through this hospitalization. Laboratory data today includes a PT of 39.8 and an INR of 4.1, potassium 4.9, and a magnesium of 2.7. Progress note dated 03/20/2021. 85-year-old female, seen in room 361. He is currently on saline at 30 mL an hour. She's getting 12 L high flow oxygen. Today, her sodium was 137, potassium 5.1, chlorides 97, CO2 37, BUN 51, and creatinine 0.82. INR is 3.9. White count 17.5, hemoglobin 16.6, hematocrit 53.9, and platelet count 273,000. Clinically, the patient continues to appear to be very weak and frail. She did not appear to be in any respiratory distress. The patient continues on vitamin C, vitamin D3, and zinc. In addition, she is on Decadron 6 mg a day. Progress note dated 03/21/2021. 85-year-old female seen in room 361. The patient remains on saline at KVO, and 12 L high flow O2. She looks about the same today as she did yesterday. No major changes. She appears to be very frail and weak. No current lab data to report. Chest x-ray from today shows diffuse bilateral infiltrates, primarily in the mid and lower lung zones, consistent with coronavirus associated pneumonia. There is also cardiomegaly. The patient continues on Decadron, vitamin C, vitamin D3, and zinc, as well as Coumadin. Objective - Vital Signs Vital signs: Vital Signs Temp 97.3 F L 03/21/21 08:00 Pulse 76 03/21/21 08:00 Resp 22 03/21/21 08:00 BP 124/97 03/21/21 08:00 Pulse Ox 95 03/21/21 08:00 Intake & Output 03/20/21 03/21/21 03/21/21 18:59 06:59 18:59 Intake Total 476 10 480 Output Total 925 200 700 Balance -449 190 -220 Weight 70 kg Intake: IV 10 0.9 10 Oral 476 480 Output: Urine 925 200 700 Other: Voiding Method External Catheter External Catheter External Catheter - Exam Very lethargic. Mild increase in respiratory rate. The patient is extremely frail appearing. Currently on 12 L high flow nasal cannula. Saturations are 95%. HEENT examination is grossly unremarkable. Neck supple. Full range of motion. No adenopathy thyromegaly or neck vein distention. Cardiovascular examination reveals an irregular rhythm and rate. S1-S2 normal. No S3 or S4. No discernible murmur noted. Heart sounds are distant. Heart rate 77 bpm. Lungs reveal diminished breath sounds throughout. The patient does not take deep breaths. Scattered rhonchi are noted. No crackles. No wheezes. Abdomen soft bowel sounds are heard. No masses or tenderness. Extremities are intact. No cyanosis clubbing or edema. Skin is without rash or lesion. Neurologic examination is brief but nonfocal. - Labs CBC & Chem 7: 03/20/21 07:51 03/20/21 07:51 Labs: Abnormal Lab Results - Last 24 Hours (Table) 03/20/21 03/20/21 03/21/21 Range/Units 16:27 20:04 06:08 PT 27.0 H (9.0-12.0) sec INR 2.8 H (<1.2) POC Glucose (mg/dL) 308 H 248 H (75-99) mg/dL 03/21/21 03/21/21 Range/Units 06:52 11:47 PT (9.0-12.0) sec INR (<1.2) POC Glucose (mg/dL) 144 H 119 H (75-99) mg/dL Assessment and Plan Assessment: Acute hypoxemic respiratory failure secondary to coronavirus associated pneumonia. Possible acute exacerbation of CHF. Atrial fibrillation with RVR, currently on Coumadin. History of diastolic and systolic CHF. History of COPD, currently on home O2 at 2 L. Hypertension. Hyperlipidemia. Plan: Plan dated 03/17/2021. The patient remains on high flow nasal O2. Saturations are in the low 90s. She did complete her course of REM. She remains on Decadron, and Coumadin. Additional recommendations and suggestions are forthcoming. She also remains on vitamin C, vitamin D3, and zinc. The patient is a no code. She is very frail appearing. We will continue to follow make recommendations where appropriate. Plan dated 03/18/2021. The patient remains on vitamin C, vitamin D3, and zinc. In addition, the patient's on Decadron, and Coumadin. The Decadron is at 6 mg twice a day. Currently, her INR is a bit elevated. Microbiologic studies are thus far negative are pending. Her pro-calcitonin level is very low, and hence, the antibiotic was discontinued. We will continue to follow. The patient is a no code. Additional recommendations and suggestions are forthcoming. Prognosis is very poor. Plan dated 03/19/2021. The patient remains on Decadron, Coumadin, and usual vitamins. The patient is on 12 L high flow nasal cannula. She's also receiving saline at 10 mL an hour. The patient is very frail. Her respiratory rate is a bit increased today. She is a DO NOT RESUSCITATE patient. Labs are reviewed. Medications are reviewed. X-rays are reviewed. Prognosis is very poor. We will continue to follow make recommendations where appropriate. Plan dated 03/20/2021. Labs, x-rays, and medications are all reviewed. Her INR is down to 3.9. She remains on 12 L high flow O2, and receiving saline at 30 mL an hour. BUN and creatinine 51 and 0.82 respectively. I will continue to follow make recommendations where appropriate. She is a DO NOT RESUSCITATE patient. She remains on Decadron, Coumadin, and usual vitamins, but she is extremely frail appearing, and could deteriorate at any time. Prognosis is guarded. Plan dated 03/21/2021. The patient is on saline at KVO, and 12 L high flow O2. Today's PT was 27 with an INR of 2.8. The patient is a DO NOT RESUSCITATE patient. She remains on Decadron, Coumadin, vitamin C, vitamin D3, and zinc. Prognosis is very guarded. We will continue to follow make recommendations where appropriate. She remains on 12 L high flow O2. Time with Patient: Less than 30
--- NOTE | 2021-03-21 15:39 | P.PN ---
Subjective Progress Note Date: 03/21/21 (Roxie, perfect service, crackles, moist, chest x-ray order, speech pathology, given 1 dose of Lasix.) Progress note, didn't of service 03/21/2021. Dictation by Dr. Li. No Communication from the RN Roxie, stated the patient is moist lung was crackling in the 2 and the whole chest bilateral, given her Lasix IV push 40 mg requesting a chest x-ray ordered which was on as well as informed to notify me pulmonary meanwhile we requested speech pathology to rule out any aspiration. That She Had a Yeast Probably and Pecans with a Prolonged Steroid and Antibiotic with the Underlying Acute Respiratory Failure on the Top of Chronic added to elevated pneumonia and associated bronchitis with the severe hypoxemia and currently on 12 L nasal cannula of oxygen with high flow and her oxygen saturation 94%. Her blood pressure and vital sign today 97.3 FL oral, pulse rate 76 with the atrial fibrillation controlled ventricular response. Respiratory rate is 22/m with the shortness of breath cough labored shallow breathing. Her blood pressure was fluctuating with the 124/97 in a.m. subsequently the blood pressure dropped to 105/58 probably with the associated Lasix injection still maintained on 95% with 12 L of high flow oxygen. Her glucose 119 at 11:47 AM and at 6:52 AM 144 no evidence of hypoglycemia however his fluctuating still and she is covered with insulin. PT and INR pro time was 27 and INR 2.8 and she is monitored by pharmacy for the Coumadin anticoagulation. On 03/20/2021 WBC is 17.5, hemoglobin was 16.6. With the hematocrit 53.9 probably associated with intravascular volume contraction, as well as steroid the dexamethasone 6 mg twice a day so far no change from the pulmonary on Decadron IV. Also the presence of yeast with this rash could be another factor included. Plasma lactic acid 1.9 on 03/20/2021. Her total protein 5.9 and albumin 2.9 with the associated decrease intake with. Probability of mild to moderate protein calorie deficiency we will be obtaining a pre-albumin and also we'll be adding nutritional support Patient evaluated by speech pathology at bedside and she had adjusting her diet. On examination: HEENT no change, no aspiration, with the finding her eating habit as well as has to be in the 90 for eating not 45 or 30. Neck was supple no JVD no thyromegaly no lymphadenopathy. Chest: She has increased anteroposterior diameter with a history of hy perinflation with the previous history of COPD and ex-smoker. And she admitted with acute exacerbation COPD on the top of chronic added to acute hypoxic respiratory failure on the top of chronic patient was on oxygen at home 2-3 L per minute, currently she had still the rhonchi's and decreased air entry bilateral on the lower basis underlying lung fibrosis on the basis could not be excluded. Heart atrial fibrillation currently controlled ventricular response. Ejection fraction 40-45% with impaired systolic function, mild aortic stenosis, [id number] mitral regurg, left atrial moderately dilated, with probable mild diastolic dysfunction and presented to the ER elevation of troponin. Abdomen soft positive bowel sounds, she had mild abdominal discomfort, currently resolved She had a CAT scan of the abdomen and the pelvis with a history of to aortic aneurysm the lower one has been operated on At [facility] with the Endo aortic Graft/stent with the underlying peripheral arterial disease Extremities: No edema and positive pulses. Neurologically stable no lateralizing sign no CVA. Assessment:and plane: #1 patient had increased rhonchi and secretion and treated with suction, speech pathology, Lasix currently she is improving. #2 seen by the pulmonary doctor Karen #3 speech did see pt. #4condition still Garded #5acute hypoxic respiratory faliur with flow oxygen ##6 thrush ,yeast start diflucan po ,nystatin suspension #7 prealbumin level #8 Covid 19 Pneumonia ,associated Bronchitis #9 Atrial Fib controlled VR #10 CHF with imparied EF 40-45% CAD ,atherosclerotic HT DIS Objective - Vital Signs Vital signs: Vital Signs Temp 97.5 F L 03/21/21 12:00 Pulse 65 03/21/21 14:00 Resp 20 03/21/21 14:00 BP 105/58 03/21/21 12:00 Pulse Ox 95 03/21/21 12:00 Intake & Output 03/20/21 03/21/21 03/21/21 18:59 06:59 18:59 Intake Total 476 10 660 Output Total 925 200 700 Balance -449 -190 -40 Weight 70 kg Intake: IV 10 0.9 10 Oral 476 660 Output: Urine 925 200 700 Other: Voiding Method External Catheter External Catheter External Catheter - Labs CBC & Chem 7: 03/20/21 07:51 03/20/21 07:51 Labs: Abnormal Lab Results - Last 24 Hours (Table) 03/20/21 03/20/21 03/21/21 Range/Units 16:27 20:04 06:08 PT 27.0 H (9.0-12.0) sec INR 2.8 H (<1.2) POC Glucose (mg/dL) 308 H 248 H (75-99) mg/dL 03/21/21 03/21/21 Range/Units 06:52 11:47 PT (9.0-12.0) sec INR (<1.2) POC Glucose (mg/dL) 144 H 119 H (75-99) mg/dL
[2021-03-21] MEDS: FLUCONAZOLE 100 MG TAB PO SCH (16:12)
[2021-03-21] MEDS: NYSTATIN 100,000 UNIT/ML SUSP 500,000 UNIT/5 ML CUP PO SCH ×3 (16:12→23:07)
[2021-03-21 16:34] LABS: Glucose,Whole Blood 354 mg/dL (75-99)
[2021-03-21] MEDS ORDERED: INSULIN ASPART (NovoLOG) 100 UNIT/ML VIAL SQ ONE (17:06)
[2021-03-21] MEDS ORDERED: WARFARIN 0.5 MG TAB PO ONE (18:00)
[2021-03-21 20:35] LABS: Glucose,Whole Blood 297 mg/dL (75-99)
[2021-03-22] MEDS: ACETAMINOPHEN TAB 325 MG TAB PO PRN (00:22)
[2021-03-22] MEDS: INSULIN ASPART (NovoLOG) 100 UNIT/ML VIAL SQ SCH ×3 (06:36→16:49)
[2021-03-22 07:14] LABS: INR 2.1 (<1.2); Prothrombin Time 20.9 sec (9.0-12.0)
[2021-03-22] MEDS: ALBUTEROL HFA INHALER INHALATION SCH ×4 (07:29→19:53)
[2021-03-22] MEDS: TIOTROPIUM 2.5 MCG INHALER INHALATION SCH (07:29)
[2021-03-22] MEDS: FLUTICASONE 110 MCG INHALER INHALATION SCH ×2 (07:29→19:53)
[2021-03-22] MEDS: ATORVASTATIN 10 MG TAB PO SCH (09:58)
[2021-03-22] MEDS: DILTIAZEM ORAL 60 MG TAB PO SCH ×2 (09:58→21:33)
[2021-03-22] MEDS: FLUCONAZOLE 100 MG TAB PO SCH (09:58)
[2021-03-22] MEDS: allopurinoL 100 MG TAB PO SCH (09:58)
[2021-03-22] MEDS: CHOLECALCIFEROL 25 MCG (1000 IU) TABLET PO SCH (09:58)
[2021-03-22] MEDS: ZINC SULFATE 220 MG CAP PO SCH (09:58)
[2021-03-22] MEDS: METOPROLOL TARTRATE 25 MG TAB PO SCH ×3 (09:58→21:33)
[2021-03-22] MEDS: ASCORBIC ACID 500 MG TAB PO SCH (09:59)
[2021-03-22] MEDS: FUROSEMIDE 10 MG/ML 4 ML VIAL IV SCH (09:59)
[2021-03-22] MEDS: INSULIN DETEMIR (LEVEMIR) 100 UNIT/ML SYR SQ SCH ×2 (10:00→21:33)
[2021-03-22] MEDS: EZETIMIBE 10 MG TAB PO SCH (10:00)
[2021-03-22] MEDS: DEXAMETHASONE SOD PHOSPHATE 10 MG/ML 1 ML VIAL IVP SCH ×2 (10:00→21:33)
[2021-03-22] MEDS: NYSTATIN 100,000 UNIT/ML SUSP 500,000 UNIT/5 ML CUP PO SCH ×3 (10:00→16:49)
[2021-03-22 11:54] LABS: Glucose,Whole Blood 346 mg/dL (75-99)
--- NOTE | 2021-03-22 13:42 | P.PN ---
Subjective Progress Note Date: 03/22/21 (High flow oxygen 12 L/m) Progress note Date of service 03/22/2021. Dictation by Dr. Barber. Patient seen today [id number]. Patient today felt better clinically but still short of breath and on high flow oxygen 12 L/m. On exam: Patient is conscious alert oriented she was eating her lunch with a few bites on. We check the prealbumin was normal with no evidence of protein calorie deficiency except to the laboratory indicating low albumin low protein. The crackling and rhonchi sound with the secretion has been improved today and we requested suctions. On exam head was normocephalic and atraumatic, pupil equal reactive, she had mild hearing deficit, oropharynx is yeast she treated with Diflucan as well as nystatin suspension. Neck was supple no JVD no thyromegaly no lymphadenopathy Chest she has inspiratory and expiratory rhonchi's with decreased air entry in the lower basis. Heart irregular irregularities was atrial fibrillation controlled ventricular response with the underlying impaired systolic function. Abdomen soft positive bowel sounds she had history of upper abdominal discomfort which has been improved significantly with the underlying she has history of to aneurysm one of them the lower one was more than 6 cm treated in urogram with the stent with the underlying peripheral vascular disease and she has another one 4.1 cm above in the upper abdomen no evidence of leak by the computed tomography scan of the abdomen. Extremities no edema. Pulses with the underlying 1+ over 2. Neurologically stable no lateralizing sign no CVA. The assessment: Acute hypoxic respiratory failure Covid-19 pneumonia and bronchitis Acute COPD exacerbation of chronic chronic hypoxemia. Pulmonary fibrosis could not be excluded. Oropharyngeal yeast. Atrial fibrillation controlled ventricular response 4 ejection fraction with a history of congestive heart failure systolic acute on the top chronic. Hypertension with hypertensive heart disease Hyperlipidemia. Plan: #1 supportive care. #2 continue the current treatment #3 continue monitoring #4 followed by pulmonary and we will be adjusting her oxygen status subsequently hopefully we able to gradually weaning her off to the limits of 4-5 L. The patient request to go home not to [facility] and once we have clearance after adjustment of the high flow oxygen will be following the order of the pulmonary. Objective - Vital Signs Vital signs: Vital Signs Temp 95 F L 03/22/21 08:00 Pulse 55 L 03/22/21 12:00 Resp 24 03/22/21 12:00 BP 115/57 03/22/21 12:00 Pulse Ox 97 03/22/21 12:00 Intake & Output 03/21/21 03/22/21 03/22/21 18:59 06:59 18:59 Intake Total 780 200 180 Output Total 700 250 Balance 80 -50 180 Weight 67.5 kg Intake: Oral 780 200 180 Output: Urine 700 250 Other: Voiding Method External Catheter External Catheter External Catheter # Voids 1 # Bowel Movements 1 - Labs CBC & Chem 7: 03/20/21 07:51 03/20/21 07:51 Labs: Abnormal Lab Results - Last 24 Hours (Table) 03/21/21 03/21/21 03/22/21 Range/Units 16:33 20:22 06:06 PT 20.9 H (9.0-12.0) sec INR 2.1 H (<1.2) POC Glucose (mg/dL) 354 H 297 H (75-99) mg/dL 03/22/21 Range/Units 11:52 PT (9.0-12.0) sec INR (<1.2) POC Glucose (mg/dL) 346 H (75-99) mg/dL
--- NOTE | 2021-03-22 14:58 | P.PN ---
Subjective Progress Note Date: 03/22/21 Principal diagnosis: Coronavirus associated pneumonia. On 03/16/2021 patient seen in follow-up on selective care unit, today she is on 15 L per high flow nasal cannula, she is not using the nonrebreather mask in addition to the high flow nasal cannula as she was yesterday, she is breathing more comfortably, her pulse ox is 92-94%. She's been afebrile, hemodynamically she is been stable, she is awake and alert, she is responding appropriately, she is overall weak, but appears to be in no acute distress. Her last chest x-ray from 03/14/2021 showed scattered reticulonodular infiltrates bilaterally, currently patient is on Decadron 6 mg twice daily, she is on IV Lasix 40 mg daily, COVID-19 vitamins, and ceftriaxone for a urinary tract infection, she is on Coumadin for anticoagulation and today's INR is 2.5. Progress note dated 03/17/2021. 85-year-old female, again seen in room 361. The patient is currently on 15 L high flow nasal cannula. She's not receiving any IV fluids. The patient has a nonrebreather mask at the bedside, but is not using it. She is very frail appearing. She is a no code, which is good. She does appear to have some mild respiratory difficulty. No new labs today other than a glucose of 476. No new chest x-rays to review. The patient's on vitamin C, vitamin D3, and zinc. The patient is also on Coumadin, and Decadron. The patient is also on Rocephin. Progress note dated 03/18/2021. 85-year-old female, again seen in room 361. Currently, the patient's on 12 L high flow nasal O2. Yesterday, she was on 15 L high flow nasal O2. Despite her high oxygen requirements, she does not appear to be in any distress. She is a DO NOT RESUSCITATE patient. She is very weak and frail appearing. The patient continues on vitamin C, vitamin D3, zinc, as well as Decadron, and Coumadin. Today's PT INR were 37.5 and 3.9 respectively. The sugar today was 99. No recent chest x-ray to report. Progress note dated 03/19/2021. 85-year-old female, again seen in room 361. Currently, the patient is receiving saline at 10 mL an hour. In addition, the patient is on 12 L high flow nasal O2. She has a very wet cough. She remains on vitamin C, vitamin D3, and zinc. In addition, the patient is on Decadron 6 mg twice a day, and warfarin. The patient is a DO NOT RESUSCITATE patient. She is very frail. I don't know that she is feeling make it through this hospitalization. Laboratory data today includes a PT of 39.8 and an INR of 4.1, potassium 4.9, and a magnesium of 2.7. Progress note dated 03/20/2021. 85-year-old female, seen in room 361. He is currently on saline at 30 mL an hour. She's getting 12 L high flow oxygen. Today, her sodium was 137, potassium 5.1, chlorides 97, CO2 37, BUN 51, and creatinine 0.82. INR is 3.9. White count 17.5, hemoglobin 16.6, hematocrit 53.9, and platelet count 273,000. Clinically, the patient continues to appear to be very weak and frail. She did not appear to be in any respiratory distress. The patient continues on vitamin C, vitamin D3, and zinc. In addition, she is on Decadron 6 mg a day. Progress note dated 03/21/2021. 85-year-old female seen in room 361. The patient remains on saline at KVO, and 12 L high flow O2. She looks about the same today as she did yesterday. No major changes. She appears to be very frail and weak. No current lab data to report. Chest x-ray from today shows diffuse bilateral infiltrates, primarily in the mid and lower lung zones, consistent with coronavirus associated pneumonia. There is also cardiomegaly. The patient continues on Decadron, vitamin C, vitamin D3, and zinc, as well as Coumadin. Progress note dated 03/22/2021. 85-year-old female again seen in room 361. Currently, the patient's getting saline at KVO, and still on high flow nasal O2 at 12 L/m. She was a bit better today than she did yesterday. She appears less short of breath today than she did yesterday. Today's labs include a PT of 20.9, and INR 2.1. Glucose is 346. Vital signs are stable including blood pressure 115/57, saturations are 97%, and heart rate of 55 bpm. Objective - Vital Signs Vital signs: Vital Signs Temp 95 F L 03/22/21 08:00 Pulse 55 L 03/22/21 14:00 Resp 24 03/22/21 14:00 BP 115/57 03/22/21 12:00 Pulse Ox 97 03/22/21 12:00 Intake & Output 03/21/21 03/22/21 03/22/21 18:59 06:59 18:59 Intake Total 780 200 180 Output Total 700 250 Balance 80 -50 180 Weight 67.5 kg Intake: Oral 780 200 180 Output: Urine 700 250 Other: Voiding Method External Catheter External Catheter External Catheter # Voids 1 # Bowel Movements 1 - Exam Very lethargic. Mild increase in respiratory rate. The patient is extremely frail appearing. Currently on 12 L high flow nasal cannula. Saturations are 97%. HEENT examination is grossly unremarkable. Neck supple. Full range of motion. No adenopathy thyromegaly or neck vein distention. Cardiovascular examination reveals an irregular rhythm and rate. S1-S2 normal. No S3 or S4. No discernible murmur noted. Heart sounds are distant. Heart rate 55 bpm. Lungs reveal diminished breath sounds throughout. The patient does not take deep breaths. Scattered rhonchi are noted. No crackles. No wheezes. Abdomen soft bowel sounds are heard. No masses or tenderness. Extremities are intact. No cyanosis clubbing or edema. Skin is without rash or lesion. Neurologic examination is brief but nonfocal. - Labs CBC & Chem 7: 03/20/21 07:51 03/20/21 07:51 Labs: Abnormal Lab Results - Last 24 Hours (Table) 03/21/21 03/21/21 03/22/21 Range/Units 16:33 20:22 06:06 PT 20.9 H (9.0-12.0) sec INR 2.1 H (<1.2) POC Glucose (mg/dL) 354 H 297 H (75-99) mg/dL 03/22/21 Range/Units 11:52 PT (9.0-12.0) sec INR (<1.2) POC Glucose (mg/dL) 346 H (75-99) mg/dL Assessment and Plan Assessment: Acute hypoxemic respiratory failure secondary to coronavirus associated pneumonia. Possible acute exacerbation of CHF. Atrial fibrillation with RVR, currently on Coumadin. History of diastolic and systolic CHF. History of COPD, currently on home O2 at 2 L. Hypertension. Hyperlipidemia. Plan: Plan dated 03/17/2021. The patient remains on high flow nasal O2. Saturations are in the low 90s. She did complete her course of REM. She remains on Decadron, and Coumadin. Additional recommendations and suggestions are forthcoming. She also remains on vitamin C, vitamin D3, and zinc. The patient is a no code. She is very frail appearing. We will continue to follow make recommendations where appropriate. Plan dated 03/18/2021. The patient remains on vitamin C, vitamin D3, and zinc. In addition, the patient's on Decadron, and Coumadin. The Decadron is at 6 mg twice a day. Currently, her INR is a bit elevated. Microbiologic studies are thus far negative are pending. Her pro-calcitonin level is very low, and hence, the antibiotic was discontinued. We will continue to follow. The patient is a no code. Additional recommendations and suggestions are forthcoming. Prognosis is very poor. Plan dated 03/19/2021. The patient remains on Decadron, Coumadin, and usual vitamins. The patient is on 12 L high flow nasal cannula. She's also receiving saline at 10 mL an hour. The patient is very frail. Her respiratory rate is a bit increased today. She is a DO NOT RESUSCITATE patient. Labs are reviewed. Medications are reviewed. X-rays are reviewed. Prognosis is very poor. We will continue to follow make recommendations where appropriate. Plan dated 03/20/2021. Labs, x-rays, and medications are all reviewed. Her INR is down to 3.9. She remains on 12 L high flow O2, and receiving saline at 30 mL an hour. BUN and creatinine 51 and 0.82 respectively. I will continue to follow make recommendations where appropriate. She is a DO NOT RESUSCITATE patient. She remains on Decadron, Coumadin, and usual vitamins, but she is extremely frail appearing, and could deteriorate at any time. Prognosis is guarded. Plan dated 03/21/2021. The patient is on saline at KVO, and 12 L high flow O2. Today's PT was 27 with an INR of 2.8. The patient is a DO NOT RESUSCITATE patient. She remains on Decadron, Coumadin, vitamin C, vitamin D3, and zinc. Prognosis is very guarded. We will continue to follow make recommendations where appropriate. She remains on 12 L high flow O2. Plan dated 03/22/2021. The patient remains on saline at KVO and 12 L high flow nasal O2. Labs and x- rays are reviewed. The patient remains on Decadron, Coumadin, vitamin C, vitamin D3, and zinc. She is therapeutic with her Coumadin. We will continue to follow make recommendations where appropriate. She is very frail. Prognosis is very guarded. Time with Patient: Less than 30
[2021-03-22 16:40] LABS: Glucose,Whole Blood 363 mg/dL (75-99)
[2021-03-22] MEDS ORDERED: WARFARIN 1 MG TAB PO ONE (18:00)
[2021-03-22 20:22] LABS: Glucose,Whole Blood 438 mg/dL (75-99)
[2021-03-22] MEDS: MORPHINE SULFATE 2 MG/ML SYRINGE IVP PRN (21:33)
[2021-03-23] MEDS: NYSTATIN 100,000 UNIT/ML SUSP 500,000 UNIT/5 ML CUP PO SCH ×4 (00:05→21:33)
[2021-03-23 06:40] LABS: Glucose,Whole Blood 102 mg/dL (75-99)
[2021-03-23] MEDS: INSULIN ASPART (NovoLOG) 100 UNIT/ML VIAL SQ SCH ×3 (08:00→17:34)
[2021-03-23] MEDS: INSULIN DETEMIR (LEVEMIR) 100 UNIT/ML SYR SQ SCH ×2 (08:41→21:33)
[2021-03-23] MEDS: ATORVASTATIN 10 MG TAB PO SCH (08:41)
[2021-03-23] MEDS: allopurinoL 100 MG TAB PO SCH (08:41)
[2021-03-23] MEDS: METOPROLOL TARTRATE 25 MG TAB PO SCH ×3 (08:42→21:33)
[2021-03-23] MEDS: CHOLECALCIFEROL 25 MCG (1000 IU) TABLET PO SCH (08:42)
[2021-03-23] MEDS: FLUCONAZOLE 100 MG TAB PO SCH (08:42)
[2021-03-23] MEDS: ZINC SULFATE 220 MG CAP PO SCH (08:42)
[2021-03-23] MEDS: DEXAMETHASONE SOD PHOSPHATE 10 MG/ML 1 ML VIAL IVP SCH ×2 (08:42→21:33)
[2021-03-23] MEDS: ASCORBIC ACID 500 MG TAB PO SCH (08:42)
[2021-03-23] MEDS: DILTIAZEM ORAL 60 MG TAB PO SCH ×2 (08:42→21:33)
[2021-03-23] MEDS: FUROSEMIDE 10 MG/ML 4 ML VIAL IV SCH (08:42)
[2021-03-23] MEDS: EZETIMIBE 10 MG TAB PO SCH (08:43)
[2021-03-23 08:47] LABS: INR 2.4 (<1.2); Prothrombin Time 23.4 sec (9.0-12.0)
[2021-03-23] MEDS: FLUTICASONE 110 MCG INHALER INHALATION SCH ×2 (08:54→20:35)
[2021-03-23] MEDS: TIOTROPIUM 2.5 MCG INHALER INHALATION SCH (08:55)
[2021-03-23] MEDS: ALBUTEROL HFA INHALER INHALATION SCH ×4 (08:55→20:35)
--- NOTE | 2021-03-23 14:11 | P.PN ---
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 Objective - Vital Signs Vital signs: Vital Signs Temp 98.0 F 03/23/21 08:37 Pulse 71 03/23/21 08:37 Resp 22 03/23/21 08:39 BP 107/61 03/23/21 08:37 Pulse Ox 90 L 03/23/21 08:57 Intake & Output 03/22/21 03/23/21 03/23/21 18:59 06:59 18:59 Intake Total 360 Balance 360 Weight 67.5 kg Intake: Oral 360 Other: Voiding Method External Catheter External Catheter External Catheter # Voids 1 1 1 # Bowel Movements 1 1 - Labs CBC & Chem 7: 03/20/21 07:51 03/20/21 07:51 Labs: Abnormal Lab Results - Last 24 Hours (Table) 03/22/21 03/22/21 03/23/21 Range/Units 16:38 20:15 06:35 PT (9.0-12.0) sec INR (<1.2) POC Glucose (mg/dL) 363 H 438 H 102 H (75-99) mg/dL 03/23/21 Range/Units 07:29 PT 23.4 H (9.0-12.0) sec INR 2.4 H (<1.2) POC Glucose (mg/dL) (75-99) mg/dL
--- NOTE | 2021-03-23 15:03 | P.PN ---
Subjective Progress Note Date: 03/23/21 Principal diagnosis: Coronavirus associated pneumonia. On 03/16/2021 patient seen in follow-up on selective care unit, today she is on 15 L per high flow nasal cannula, she is not using the nonrebreather mask in addition to the high flow nasal cannula as she was yesterday, she is breathing more comfortably, her pulse ox is 92-94%. She's been afebrile, hemodynamically she is been stable, she is awake and alert, she is responding appropriately, she is overall weak, but appears to be in no acute distress. Her last chest x-ray from 03/14/2021 showed scattered reticulonodular infiltrates bilaterally, currently patient is on Decadron 6 mg twice daily, she is on IV Lasix 40 mg daily, COVID-19 vitamins, and ceftriaxone for a urinary tract infection, she is on Coumadin for anticoagulation and today's INR is 2.5. Progress note dated 03/17/2021. 85-year-old female, again seen in room 361. The patient is currently on 15 L high flow nasal cannula. She's not receiving any IV fluids. The patient has a nonrebreather mask at the bedside, but is not using it. She is very frail appearing. She is a no code, which is good. She does appear to have some mild respiratory difficulty. No new labs today other than a glucose of 476. No new chest x-rays to review. The patient's on vitamin C, vitamin D3, and zinc. The patient is also on Coumadin, and Decadron. The patient is also on Rocephin. Progress note dated 03/18/2021. 85-year-old female, again seen in room 361. Currently, the patient's on 12 L high flow nasal O2. Yesterday, she was on 15 L high flow nasal O2. Despite her high oxygen requirements, she does not appear to be in any distress. She is a DO NOT RESUSCITATE patient. She is very weak and frail appearing. The patient continues on vitamin C, vitamin D3, zinc, as well as Decadron, and Coumadin. Today's PT INR were 37.5 and 3.9 respectively. The sugar today was 99. No recent chest x-ray to report. Progress note dated 03/19/2021. 85-year-old female, again seen in room 361. Currently, the patient is receiving saline at 10 mL an hour. In addition, the patient is on 12 L high flow nasal O2. She has a very wet cough. She remains on vitamin C, vitamin D3, and zinc. In addition, the patient is on Decadron 6 mg twice a day, and warfarin. The patient is a DO NOT RESUSCITATE patient. She is very frail. I don't know that she is feeling make it through this hospitalization. Laboratory data today includes a PT of 39.8 and an INR of 4.1, potassium 4.9, and a magnesium of 2.7. Progress note dated 03/20/2021. 85-year-old female, seen in room 361. He is currently on saline at 30 mL an hour. She's getting 12 L high flow oxygen. Today, her sodium was 137, potassium 5.1, chlorides 97, CO2 37, BUN 51, and creatinine 0.82. INR is 3.9. White count 17.5, hemoglobin 16.6, hematocrit 53.9, and platelet count 273,000. Clinically, the patient continues to appear to be very weak and frail. She did not appear to be in any respiratory distress. The patient continues on vitamin C, vitamin D3, and zinc. In addition, she is on Decadron 6 mg a day. Progress note dated 03/21/2021. 85-year-old female seen in room 361. The patient remains on saline at KVO, and 12 L high flow O2. She looks about the same today as she did yesterday. No major changes. She appears to be very frail and weak. No current lab data to report. Chest x-ray from today shows diffuse bilateral infiltrates, primarily in the mid and lower lung zones, consistent with coronavirus associated pneumonia. There is also cardiomegaly. The patient continues on Decadron, vitamin C, vitamin D3, and zinc, as well as Coumadin. Progress note dated 03/22/2021. 85-year-old female again seen in room 361. Currently, the patient's getting saline at KVO, and still on high flow nasal O2 at 12 L/m. She was a bit better today than she did yesterday. She appears less short of breath today than she did yesterday. Today's labs include a PT of 20.9, and INR 2.1. Glucose is 346. Vital signs are stable including blood pressure 115/57, saturations are 97%, and heart rate of 55 bpm. Progress note dated 03/23/2021. 85-year-old female, again seen in room 361. The patient is currently on 15 L high flow oxygen, and not receiving any IV fluids. She sitting in a chair next to her bed. She appears not to have any respiratory distress despite her high oxygen requirements. She is a PT of 23.4, and an INR of 2.4. She is very frail appearing. She looks today about the same as she is looked the last couple of days. Saturations are 93% on 15 L high flow O2. Her respiratory rate between 18 and 22 breaths per minute. Objective - Vital Signs Vital signs: Vital Signs Temp 97.8 F 03/23/21 11:47 Pulse 73 03/23/21 11:47 Resp 18 03/23/21 14:23 BP 133/77 03/23/21 11:47 Pulse Ox 93 L 03/23/21 11:47 Intake & Output 03/22/21 03/23/21 03/23/21 18:59 06:59 18:59 Intake Total 360 240 Balance 360 240 Weight 67.5 kg Intake: Oral 360 240 Other: Voiding Method External Catheter External Catheter External Catheter # Voids 1 1 1 # Bowel Movements 1 1 - Exam Very lethargic. Mild increase in respiratory rate. The patient is extremely frail appearing. Currently on 15 L high flow nasal cannula. Saturations are 93%. HEENT examination is grossly unremarkable. Neck supple. Full range of motion. No adenopathy thyromegaly or neck vein distention. Cardiovascular examination reveals an irregular rhythm and rate. S1-S2 normal. No S3 or S4. No discernible murmur noted. Heart sounds are distant. Heart rate73 bpm. Lungs reveal diminished breath sounds throughout. The patient does not take deep breaths. Scattered rhonchi are noted. No crackles. No wheezes. Abdomen soft bowel sounds are heard. No masses or tenderness. Extremities are intact. No cyanosis clubbing or edema. Skin is without rash or lesion. Neurologic examination is brief but nonfocal. - Labs CBC & Chem 7: 03/20/21 07:51 03/20/21 07:51 Labs: Abnormal Lab Results - Last 24 Hours (Table) 03/22/21 03/22/21 03/23/21 Range/Units 16:38 20:15 06:35 PT (9.0-12.0) sec INR (<1.2) POC Glucose (mg/dL) 363 H 438 H 102 H (75-99) mg/dL 03/23/21 Range/Units 07:29 PT 23.4 H (9.0-12.0) sec INR 2.4 H (<1.2) POC Glucose (mg/dL) (75-99) mg/dL Assessment and Plan Assessment: Acute hypoxemic respiratory failure secondary to coronavirus associated pneumonia. Possible acute exacerbation of CHF. Atrial fibrillation with RVR, currently on Coumadin. History of diastolic and systolic CHF. History of COPD, currently on home O2 at 2 L. Hypertension. Hyperlipidemia. Plan: Plan dated 03/17/2021. The patient remains on high flow nasal O2. Saturations are in the low 90s. She did complete her course of REM. She remains on Decadron, and Coumadin. Additional recommendations and suggestions are forthcoming. She also remains on vitamin C, vitamin D3, and zinc. The patient is a no code. She is very frail appearing. We will continue to follow make recommendations where appropriate. Plan dated 03/18/2021. The patient remains on vitamin C, vitamin D3, and zinc. In addition, the patient's on Decadron, and Coumadin. The Decadron is at 6 mg twice a day. Currently, her INR is a bit elevated. Microbiologic studies are thus far negative are pending. Her pro-calcitonin level is very low, and hence, the antibiotic was discontinued. We will continue to follow. The patient is a no code. Additional recommendations and suggestions are forthcoming. Prognosis is very poor. Plan dated 03/19/2021. The patient remains on Decadron, Coumadin, and usual vitamins. The patient is on 12 L high flow nasal cannula. She's also receiving saline at 10 mL an hour. The patient is very frail. Her respiratory rate is a bit increased today. She is a DO NOT RESUSCITATE patient. Labs are reviewed. Medications are reviewed. X-rays are reviewed. Prognosis is very poor. We will continue to follow make recommendations where appropriate. Plan dated 03/20/2021. Labs, x-rays, and medications are all reviewed. Her INR is down to 3.9. She remains on 12 L high flow O2, and receiving saline at 30 mL an hour. BUN and creatinine 51 and 0.82 respectively. I will continue to follow make recommendations where appropriate. She is a DO NOT RESUSCITATE patient. She remains on Decadron, Coumadin, and usual vitamins, but she is extremely frail appearing, and could deteriorate at any time. Prognosis is guarded. Plan dated 03/21/2021. The patient is on saline at KVO, and 12 L high flow O2. Today's PT was 27 with an INR of 2.8. The patient is a DO NOT RESUSCITATE patient. She remains on Decadron, Coumadin, vitamin C, vitamin D3, and zinc. Prognosis is very guarded. We will continue to follow make recommendations where appropriate. She remains on 12 L high flow O2. Plan dated 03/22/2021. The patient remains on saline at KVO and 12 L high flow nasal O2. Labs and x- rays are reviewed. The patient remains on Decadron, Coumadin, vitamin C, vitamin D3, and zinc. She is therapeutic with her Coumadin. We will continue to follow make recommendations where appropriate. She is very frail. Prognosis is very guarded. Plan dated 03/23/2021. The patient is on 15 L high flow nasal O2. The patient is not receiving any IV fluids. She is therapeutic with her Coumadin. She remains on Decadron, Coumadin, vitamin C, vitamin D3, and zinc. The patient is a DO NOT RESUSCITATE patient. Prognosis is very guarded. We will continue to follow make recommendations where appropriate. Time with Patient: Less than 30
--- NOTE | 2021-03-23 16:21 | PN ---
PROGRESS NOTE DATE OF SERVICE: 03/23/2021 NEW DATA: She is NO CODE. Her height is 5 feet 4 inches, weight 67.5 kg. BSA 1.73 m2. BMI 25.5 kg/m2. ALLERGIES UNKNOWN. The patient was seen and evaluated today face to face. VITAL SIGNS: Temperature 98 F oral. Pulse rate 71, irregular with atrial fibrillation and controlled ventricular response. Respiratory rate 22. Short of breath and labored with cough and shallow breaths. Blood pressure 107/61. 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 She is on oxygen 15 L which was yesterday 12 and today 15 L, changed to increase the high-flow rate. Pulse ox is 94 on the high flow rate. PT and INR today 2.4 which is therapeutic. Her blood sugar this morning 102, which is reasonable. She had fluctuating blood sugar, but the hemoglobin A1c was good range, in the 6s. Apparently that is because of her dexamethasone that she takes IV twice a day and keeps the blood sugar/blood glucose elevated. Patient was seen recently today by Dr. Servin. PHYSICAL EXAM: Patient is conscious, alert, oriented. She is in the wing chair and she is feeling better on the 15 L. We have still difficulties to wean her off from high-flow oxygen. The head was normocephalic, atraumatic. Pupils were equal, reactive. Conjunctivae were pink. Sclerae were nonicteric. Oropharynx: she has natural teeth. Neck was supple. No JVD. No thyromegaly. No lymphadenopathy. Trachea midline. Chest with increased anteroposterior diameter with underlying history of COPD and she had underlying acute respiratory failure, hypoxic type on the top of chronic and she had history of COPD with exacerbation. She had atrial fibrillation as well but controlled ventricular response at this time. Chest on auscultation: She had still secretions in the bronchial tissue with the related respiratory and expiratory rhonchi and may need deep suction or maybe bronchoscopy with suction if Pulmonary indicates that. Heart: irregular irregularities with the underlying poor ejection fraction with ischemic cardiomyopathy, mainly systolic. However, she has no edema at this time and she is compensated. The abdomen is soft, positive bowel sounds. She had history of 2 abdominal aneurysms, one in the upper abdomen 4.1 cm and the lower abdomen was increased in size at 6.1. At that time she was in [facility] with repair with Endograft with the connection to peripheral vascular disease. There is no tenderness and we did a CT scan of the abdomen recently, with her abdominal pain currently not present. EXTREMITIES: No edema and positive pulses, 1+ over 2+. ASSESSMENT: General respiratory distress continues to be present with hypoxic respiratory failure and underlying history of COVID-19 pneumonia and associated bronchitis. She is still on antibiotic. Meanwhile, the possibility of pulmonary fibrosis was added to her diagnosis with the recurrent pulmonary insult. Underlying history of atrial fibrillation, coronary artery disease atherosclerotic heart disease and poor ejection fraction as well, as advised above. Patient is currently monitored on her diabetes and it is currently fluctuating, but generally the hemoglobin A1c was reasonable, and we are trying not to make her hypoglycemic with the adjustment of the insulin. PLAN: Supportive care. Continue the current treatment following the pulmonary recommendations and continuing the medication at this time. We will see further plans next week, tomorrow. DIAN / LEON: [id number] /
[2021-03-23 17:06] LABS: Glucose,Whole Blood 376 mg/dL (75-99)
[2021-03-23] MEDS ORDERED: WARFARIN 1 MG TAB PO ONE (18:00)
[2021-03-23 19:47] LABS: Glucose,Whole Blood 429 mg/dL (75-99)
[2021-03-23] MEDS: MORPHINE SULFATE 2 MG/ML SYRINGE IVP PRN (21:42)
[2021-03-24 05:50] LABS: Glucose,Whole Blood 233 mg/dL (75-99)
[2021-03-24] MEDS: INSULIN ASPART (NovoLOG) 100 UNIT/ML VIAL SQ SCH ×3 (06:24→17:04)
[2021-03-24 06:36] LABS: INR 2.7 (<1.2); Prothrombin Time 26.1 sec (9.0-12.0)
[2021-03-24] MEDS: FUROSEMIDE 10 MG/ML 4 ML VIAL IV SCH (08:00)
[2021-03-24] MEDS: DILTIAZEM ORAL 60 MG TAB PO SCH ×2 (08:00→20:30)
[2021-03-24] MEDS: DEXAMETHASONE SOD PHOSPHATE 10 MG/ML 1 ML VIAL IVP SCH ×2 (08:00→20:30)
[2021-03-24] MEDS: EZETIMIBE 10 MG TAB PO SCH (08:00)
[2021-03-24] MEDS: ASCORBIC ACID 500 MG TAB PO SCH (08:00)
[2021-03-24] MEDS: INSULIN DETEMIR (LEVEMIR) 100 UNIT/ML SYR SQ SCH (08:00)
[2021-03-24] MEDS: ZINC SULFATE 220 MG CAP PO SCH (08:00)
[2021-03-24] MEDS: CHOLECALCIFEROL 25 MCG (1000 IU) TABLET PO SCH (08:00)
[2021-03-24] MEDS: ATORVASTATIN 10 MG TAB PO SCH (08:00)
[2021-03-24] MEDS: NYSTATIN 100,000 UNIT/ML SUSP 500,000 UNIT/5 ML CUP PO SCH ×4 (08:00→20:31)
[2021-03-24] MEDS: FLUCONAZOLE 100 MG TAB PO SCH (08:00)
[2021-03-24] MEDS: allopurinoL 100 MG TAB PO SCH (08:00)
[2021-03-24] MEDS: METOPROLOL TARTRATE 25 MG TAB PO SCH ×3 (08:00→20:30)
[2021-03-24] MEDS: ALBUTEROL HFA INHALER INHALATION SCH ×6 (08:45→21:26)
[2021-03-24] MEDS: FLUTICASONE 110 MCG INHALER INHALATION SCH ×2 (09:02→21:26)
[2021-03-24] MEDS: TIOTROPIUM 2.5 MCG INHALER INHALATION SCH (09:05)
[2021-03-24 11:59] LABS: Glucose,Whole Blood 341 mg/dL (75-99)
--- NOTE | 2021-03-24 13:24 | P.PN ---
Subjective Progress Note Date: 03/24/21 On today's evaluation of 03/24/2021, the patient is being seen for a follow-up. This is a so-called 90 related pneumonia with secondary respiratory failure. The patient has been hospital for almost 12 days. Note that the patient is on oxygen and the patient is currently on 12 L about 2 by nasal cannula. This has improved somewhat compared to yesterday. She is still having some chest congestion and her breathing continues to be labored. Less chest x-ray was noted from 03/21/2021 consistent with Coumadin associated pneumonia. The patient remains on Decadron. The patient is taking Levemir 15 units in the morning and 5 units in the evening and the patient is on long-term and to coagulation with warfarin. Most recent INR is at 2.7. She is frail. Respiratory status remains on stable and borderline and she still requiring high flow of oxygen although this is improved compared to yesterday. Blood sugar management as per medicine. Objective - Vital Signs Vital signs: Vital Signs Temp 97.5 F L 03/24/21 10:54 Pulse 72 03/24/21 10:54 Resp 24 03/24/21 10:54 BP 130/77 03/24/21 10:54 Pulse Ox 94 L 03/24/21 10:54 Intake & Output 03/23/21 03/24/21 03/24/21 18:59 06:59 18:59 Intake Total 594 Output Total 650 Balance 594 -650 Weight 66.5 kg Intake: Oral 594 Output: Urine 650 Other: Voiding Method External Catheter External Catheter External Catheter # Voids 1 # Bowel Movements 1 - Exam Lethargic, although more awake compared to yesterday. Mild increase in respiratory rate. The patient is extremely frail appearing. Currently on 12 L high flow nasal cannula. Saturations are 93%. HEENT examination is grossly unremarkable. Neck supple. Full range of motion. No adenopathy thyromegaly or neck vein distention. Cardiovascular examination reveals an irregular rhythm and rate. S1-S2 normal. No S3 or S4. No discernible murmur noted. Heart sounds are distant. Heart r ate73 bpm. Lungs reveal diminished breath sounds throughout. The patient does not take deep breaths. Scattered rhonchi are noted. No crackles. No wheezes. Abdomen soft bowel sounds are heard. No masses or tenderness. Extremities are intact. No cyanosis clubbing or edema. Skin is without rash or lesion. Neurologic examination is brief but nonfocal. - Labs CBC & Chem 7: 03/20/21 07:51 03/20/21 07:51 Labs: Abnormal Lab Results - Last 24 Hours (Table) 03/23/21 03/23/21 03/24/21 Range/Units 16:56 19:42 05:43 PT 26.1 H (9.0-12.0) sec INR 2.7 H (<1.2) POC Glucose (mg/dL) 376 H 429 H (75-99) mg/dL 03/24/21 03/24/21 Range/Units 05:49 11:57 PT (9.0-12.0) sec INR (<1.2) POC Glucose (mg/dL) 233 H 341 H (75-99) mg/dL Assessment and Plan Plan: 1 acute hypoxic respiratory failure secondary to COVID 19 related pneumonia. The patient is currently on 12 L about 2 by nasal cannula 2 acute COVID 19 related pneumonia. Currently on Decadron. 3 chronic atrial fibrillation, maintained on long-term articulation with warfarin with a therapeutic PT/INR 4 hypertension 5 hyperlipidemia 6 chronic diastolic heart failure 7 steroid-induced hyperglycemia currently on Levemir insulin. Plan Continue our efforts to gradually wean of the FiO2 to maintain a saturation above 90%. Continue Decadron 6 mg IV every 12 hours Continue tiotropium and albuterol HFA regarding her underlying COPD. Continue long-term and to coagulation with warfarin with daily monitoring of the PT/INR Blood sugar management as for medicine. The patient is currently on Levemir insulin 10 is in the morning and 5 units in the evening along with sliding scale coverage Rest of the home medications are reordered We'll continue to follow.
[2021-03-24 16:55] LABS: Glucose,Whole Blood 378 mg/dL (75-99)
--- NOTE | 2021-03-24 17:09 | P.PN ---
Subjective Progress Note Date: 03/24/21 (Acute hypoxic respiratory failure secondary to Covid19 pneumonia) Progress note, date of service 03/24/2021. Dictation by Dr. Barber Patient seen and evaluated [id number]. Patient seen today by Dr. Pedro pulmonary and critical care Patient on high flow oxygen and today down to 12 L pH currently comfortable on Brittney chair able to eat her lunch and able to communicate. Patient diabetes mellitus is uncontrolled, with the underlying use of dexamethasone 6 mg twice a day which induced hyper glycemia and lumbar bile POC blood sugar. Today on the monitor her blood sugar 212 are 300, we'll increase her Levemir to 15 units subcu in a.m. and 10 units subcu in the p.m. as well as monitored with the scale 2-10 according to POC blood sugar. And will monitor hypoglycemic reaction as well. On exam: Patient is conscious alert able to communicate with shortness of breath Head was normocephalic and atraumatic, she had yeast treated and apparently mild improvement on her appetite, also seen by speech pathology with no evidence of dysphagia who adjusted her diet to be easy to chew and swallow. Neck was supple no JVD no thyromegaly no lymphadenopathy trachea midline. Chest: She had inspiratory expiratory wheezes and rhonchi's it sound like liquid in the pipes and crackling she had the flatter to brig of the sputum apparently patient has no effort to expectorate, may need suction or bronchoscopy with suction and I will leave that up to the pulmonary Heart: Irregular heartbeat, atrial fibrillation, she has underlying systolic function impairment with impaired ejection fraction by the echocardiogram as well as history of diastolic dysfunction. Seen by cardiology during this admission and she had a echocardiogram as well. Abdomen is soft positive bowel sounds, abdominal discomfort has been improved with the underlying history of underlying 2 aneurysms of aortic 1 in the upper abdomen for 4.1 centimeter, lower was 6.1 cm and was stented with endograft and [facility] with the underlying peripheral vascular disease for both iliac artery. Recent computed tomography scan of the abdomen with contrast indicating no abdominal leak or hemorrhage. Extremities no edema and positive pulses however is 1 over 2 with the underlying peripheral vascular disease. Neurological exam: No lateralizing sign, no CVA. Patient's conscious alert. 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 #2 high flow oxygen continued with. Difficulties associated with reducing the oxygen high flow to reasonable level. #3 patient has underlying bronchial secretion with the severe debility unable to expectorate. #4 diabetes mellitus, hyperglycemia, secondary to Decadron IV 6 mg twice a day could not be reduced because of her lung issue and exchange. #5 acute hypoxic respiratory failure on the top of chronic. #6 COPD with acute exacerbation. #7 coronary artery disease atherosclerotic heart disease #8 atrial fibrillation currently controlled ventricular response. #9 on admission history of congestive heart failure and minimal elevation of troponin. #10 impaired ejection fraction systolic with the probable diastolic as well. #11 peripheral vascular disease. #12 aneurysmal dilatation 21 in the upper abdomen, one in the lower abdomen. Plan: #1 continue the current supportive measures #2 continue monitoring diabetes mellitus and the hyperglycemia and adjusting the insulin long-acting and short- acting. #3 monitoring to avoid hypoglycemia. #4 continue the current treatment with the pulmonary diarrhea reaction and orders. #5 gradual weaning off the high flow oxygen if patient tolerated. Objective - Vital Signs Vital signs: Vital Signs Temp 97.5 F L 03/24/21 10:54 Pulse 72 03/24/21 10:54 Resp 24 03/24/21 14:53 BP 130/77 03/24/21 10:54 Pulse Ox 94 L 03/24/21 10:54 Intake & Output 03/23/21 03/24/21 03/24/21 18:59 06:59 18:59 Intake Total 594 118 Output Total 650 400 Balance 594 -650 -282 Weight 66.5 kg Intake: Oral 594 118 Output: Urine 650 400 Other: Voiding Method External Catheter External Catheter External Catheter # Voids 1 # Bowel Movements 1 - Labs CBC & Chem 7: 03/20/21 07:51 03/20/21 07:51 Labs: Abnormal Lab Results - Last 24 Hours (Table) 03/23/21 03/23/21 03/24/21 Range/Units 16:56 19:42 05:43 PT 26.1 H (9.0-12.0) sec INR 2.7 H (<1.2) POC Glucose (mg/dL) 376 H 429 H (75-99) mg/dL 03/24/21 03/24/21 Range/Units 05:49 11:57 PT (9.0-12.0) sec INR (<1.2) POC Glucose (mg/dL) 233 H 341 H (75-99) mg/dL
[2021-03-24] MEDS ORDERED: WARFARIN 0.5 MG TAB PO ONE (18:00)
[2021-03-24 20:13] LABS: Glucose,Whole Blood 388 mg/dL (75-99)
[2021-03-24] MEDS ORDERED: INSULIN DETEMIR (LEVEMIR) 100 UNIT/ML SYR SQ SCH (21:00)
[2021-03-24] MEDS: MORPHINE SULFATE 2 MG/ML SYRINGE IVP PRN (21:37)
[2021-03-25] MEDS: MORPHINE SULFATE 2 MG/ML SYRINGE IVP PRN ×2 (04:32→08:58)
[2021-03-25 05:56] LABS: Glucose,Whole Blood 157 mg/dL (75-99)
[2021-03-25] MEDS: INSULIN ASPART (NovoLOG) 100 UNIT/ML VIAL SQ SCH ×2 (06:22→11:59)
[2021-03-25 07:08] LABS: INR 3.5 (<1.2); Prothrombin Time 33.7 sec (9.0-12.0)
--- NOTE | 2021-03-25 08:16 | XR ---
EXAMINATION TYPE: XR chest 1V portable DATE OF EXAM: 03/25/2021 CLINICAL HISTORY: Difficulty breathing and covid. TECHNIQUE: Single AP portable frontal view of the chest is obtained. COMPARISON: Chest x-ray from 4 days earlier and older study. FINDINGS: Osseous structures remain demineralized. Cardiac silhouette size stable and mildly enlarge d with atherosclerotic and ectatic thoracic aorta. Chronic parenchymal changes with areas of increase d opacity bilaterally redemonstrated slightly more prominent from prior study. IMPRESSION: Cardiomegaly and chronic parenchymal changes with bilateral multifocal areas of increase d opacity redemonstrated slightly more prominent from prior study suggesting slightly worsening covid -19 infection.
[2021-03-25] MEDS: ALBUTEROL HFA INHALER INHALATION SCH ×2 (08:42→12:32)
[2021-03-25] MEDS: TIOTROPIUM 2.5 MCG INHALER INHALATION SCH (08:43)
[2021-03-25] MEDS: FLUTICASONE 110 MCG INHALER INHALATION SCH (08:43)
[2021-03-25] MEDS: FUROSEMIDE 10 MG/ML 4 ML VIAL IV SCH (08:56)
[2021-03-25] MEDS: ZINC SULFATE 220 MG CAP PO SCH (08:57)
[2021-03-25] MEDS: METOPROLOL TARTRATE 25 MG TAB PO SCH (08:57)
[2021-03-25] MEDS: CHOLECALCIFEROL 25 MCG (1000 IU) TABLET PO SCH (08:57)
[2021-03-25] MEDS: DEXAMETHASONE SOD PHOSPHATE 10 MG/ML 1 ML VIAL IVP SCH (08:57)
[2021-03-25] MEDS: EZETIMIBE 10 MG TAB PO SCH (08:57)
[2021-03-25] MEDS: ASCORBIC ACID 500 MG TAB PO SCH (08:57)
[2021-03-25] MEDS: ATORVASTATIN 10 MG TAB PO SCH (08:57)
[2021-03-25] MEDS: DILTIAZEM ORAL 60 MG TAB PO SCH (08:57)
[2021-03-25] MEDS: NYSTATIN 100,000 UNIT/ML SUSP 500,000 UNIT/5 ML CUP PO SCH ×2 (08:57→11:59)
[2021-03-25] MEDS: FLUCONAZOLE 100 MG TAB PO SCH (08:57)
[2021-03-25] MEDS: allopurinoL 100 MG TAB PO SCH (08:57)
[2021-03-25] MEDS ORDERED: INSULIN DETEMIR (LEVEMIR) 100 UNIT/ML SYR SQ SCH (09:00)
[2021-03-25 11:27] LABS: Glucose,Whole Blood 269 mg/dL (75-99)
[2021-03-25] MEDS ORDERED: methylPREDNISolone SOD SUCCI 125 MG/2 ML VIAL IV SCH (12:00)
[2021-03-25 12:30] VITALS: BP 126/74; PULSE 69; RESP 19; TEMP 97.9
--- NOTE | 2021-03-25 14:55 | P.PN ---
Subjective Progress Note Date: 03/25/21 03/25/2021, the patient is being seen for a follow-up regarding her COVID 19 related pneumonia with hypoxic respiratory failure. The patient has been hospital for the past 13 days. The patient was hypoxic. She was seen in follow-up yesterday and she was on 12 L per minute nasal cannula. She continues to be somewhat lethargic and weak and short of breath and her breathing is mildly labored even at rest. She did have further desaturation and she was brought up to 15 L of oxygen by nasal cannula. A repeat chest x-ray was done today and I reviewed the chest x-ray and the patient showed Adam megaly and chronic parenchymal changes with bilateral multifocal areas of increased opacity redemonstrated slightly more prominent compared to the previous evaluation and this is suggestive of some mild interval worsening of the COVID 19 infection. Meanwhile, the patient remains on IV Solu Medrol 60 mg every 6 hours. The patient remains on long-term medical condition with warfarin and her INR is slightly supratherapeutic on today's evaluation. This being monitored. The patient is also on Levemir insulin 15 units in the morning and 10 units in the evening along with + scattered coverage. She remains on Diflucan 100 mg by mouth daily regarding oropharyngeal candidiasis. No other significant events otherwise for now. Oral intake is quite diminished and the patient looks quite weak and debilitated. Objective - Vital Signs Vital signs: Vital Signs Temp 97.9 F 03/25/21 12:00 Pulse 69 03/25/21 12:00 Resp 19 03/25/21 12:00 BP 126/74 03/25/21 12:00 Pulse Ox 91 L 03/25/21 12:00 Intake & Output 03/24/21 03/25/21 03/25/21 18:59 06:59 18:59 Intake Total 118 100 Output Total 400 550 Balance -282 -450 Weight 68 kg Intake: Oral 118 100 Output: Urine 400 550 Other: Voiding Method External Catheter External Catheter External Catheter - Exam Lethargic, although more awake compared to yesterday. Mild increase in respiratory rate. The patient is extremely frail appearing. Currently on 15 L approximately nasal cannula with some mild labored breathing Head exam was generally normal. There was no scleral icterus or corneal arcus. Mucous membranes were moist. HEENT examination is grossly unremarkable. Neck supple. Full range of motion. No adenopathy thyromegaly or neck vein distention. Cardiovascular examination reveals an irregular rhythm and rate. S1-S2 normal. No S3 or S4. No discernible murmur noted. Heart sounds are distant. Lungs reveal diminished breath sounds throughout. The patient does not take deep breaths. Scattered rhonchi are noted. The patient has also scattered crackles and scattered expiratory wheezes throughout the lung his bilaterally. Abdomen soft bowel sounds are heard. No masses or tenderness. Extremities are intact. No cyanosis clubbing or edema. Skin is without rash or lesion. Neurologic examination is brief but nonfocal. - Labs CBC & Chem 7: 03/20/21 07:51 03/20/21 07:51 Labs: Abnormal Lab Results - Last 24 Hours (Table) 03/24/21 03/24/21 03/25/21 Range/Units 16:52 20:11 05:49 PT (9.0-12.0) sec INR (<1.2) POC Glucose (mg/dL) 378 H 388 H 157 H (75-99) mg/dL 03/25/21 03/25/21 Range/Units 06:15 11:25 PT 33.7 H (9.0-12.0) sec INR 3.5 H (<1.2) POC Glucose (mg/dL) 269 H (75-99) mg/dL Assessment and Plan Plan: 1 acute hypoxic respiratory failure secondary to COVID 19 related pneumonia. The patient is currently on 15 L nasal cannula. Oxidation slightly gotten worse and the patient's chest x-ray shows some increased infiltrates and interstitial prominence consistent with COVID 19 related pneumonia. The patient remains on IV Solu-Medrol 60 mg IV push every 6 hours. 2 acute COVID 19 related pneumonia. She above-mentioned discussion currently on 15 L of Oxymizer nasal cannula 3 chronic atrial fibrillation, maintained on long-term articulation with warfarin with INR of 3.5 4 hypertension 5 hyperlipidemia 6 chronic diastolic heart failure 7 steroid-induced hyperglycemia currently on Levemir insulin. Plan Keep the patient on 15 L of Oxymizer nasal cannula Continue our efforts to gradually wean of the FiO2 to maintain a saturation above 90%. Continue IV Solu Medrol 60 mg every 6 hours Lasix 40 mg IV every 24 hours Levemir insulin for blood sugar control Hold Coumadin for today as the patient's INR is at 3.5 Continue tiotropium and albuterol HFA regarding her underlying COPD. Continue long-term and to coagulation with warfarin with daily monitoring of the PT/INR Blood sugar management as for medicine. The patient is currently on Levemir insulin 15 is in the morning and 10 units in the evening along with sliding scale coverage Rest of the home medications are reordered We'll continue to follow.
[2021-03-25] MEDS ORDERED: WARFARIN 0.5 MG TAB PO ONE (18:00)
== END 2021-03-25 15:57 | disposition short-term general hospital, planned readmission (82) | DRG 177 ==
LOC: EC 10:22 → 3SCARD 11:42
PROVIDERS: ADMIT Internal Medicine; ATTEND Internal Medicine
PROC: XW033E5 Introduction of Remdesivir Anti-infective into Peripheral Vein, Percutaneous Approach, New Technology Group 5 (ICD-10-PCS; principal; 2021-03-12)
PROC: 3E0333Z Introduction of Anti-inflammatory into Peripheral Vein, Percutaneous Approach (ICD-10-PCS; 2021-03-12)
PROC: 5A0955A Assistance with Respiratory Ventilation, Greater than 96 Consecutive Hours, High Flow/Velocity Cannula (ICD-10-PCS; 2021-03-15)
DX: U07.1 COVID-19 (principal); I50.43 Acute on chronic combined systolic (congestive) and diastolic (congestive) heart failure; J12.82 Pneumonia due to coronavirus disease 2019; J96.21 Acute and chronic respiratory failure with hypoxia; B37.0 Candidal stomatitis; D68.59 Other primary thrombophilia; E87.2 Acidosis; I48.19 Other persistent atrial fibrillation; J44.0 Chronic obstructive pulmonary disease with (acute) lower respiratory infection; J44.1 Chronic obstructive pulmonary disease with (acute) exacerbation; E11.51 Type 2 diabetes mellitus with diabetic peripheral angiopathy without gangrene; E11.65 Type 2 diabetes mellitus with hyperglycemia; E55.9 Vitamin D deficiency, unspecified; E78.5 Hyperlipidemia, unspecified; I08.3 Combined rheumatic disorders of mitral, aortic and tricuspid valves; I25.10 Atherosclerotic heart disease of native coronary artery without angina pectoris; I27.20 Pulmonary hypertension, unspecified; I11.0 Hypertensive heart disease with heart failure; I50.82 Biventricular heart failure; I71.4 Abdominal aortic aneurysm, without rupture; K44.9 Diaphragmatic hernia without obstruction or gangrene; K57.30 Diverticulosis of large intestine without perforation or abscess without bleeding; M10.9 Gout, unspecified; M19.90 Unspecified osteoarthritis, unspecified site; T38.0X5A Adverse effect of glucocorticoids and synthetic analogues, initial encounter; T45.515A Adverse effect of anticoagulants, initial encounter; Z66 Do not resuscitate; Z79.01 Long term (current) use of anticoagulants; Z79.4 Long term (current) use of insulin; Z79.52 Long term (current) use of systemic steroids; Z79.82 Long term (current) use of aspirin; Z79.899 Other long term (current) drug therapy; R32 Unspecified urinary incontinence; Z82.49 Family history of ischemic heart disease and other diseases of the circulatory system; Z86.73 Personal history of transient ischemic attack (TIA), and cerebral infarction without residual deficits; Z86.79 Personal history of other diseases of the circulatory system; Z87.891 Personal history of nicotine dependence; Z90.710 Acquired absence of both cervix and uterus; Z96.1 Presence of intraocular lens; Z99.81 Dependence on supplemental oxygen
CPT/HCPCS: 36415; 71045; 71046; 74174; 80053; 82728; 83036; 83605; 83615; 83735; 83880; 84132; 84134; 84145; 84443; 84484; 85025; 85379; 85610; 85730; 86140; 87635; 93005; 93306; 94640; 94667; 94760; 96374; 99285

== ENCOUNTER 2021-03-25 15:48 | Inpatient (IN) | payer MEDICAID ==
[2021-03-25] MEDS ORDERED: ONDANSETRON 4 MG/2 ML VIAL IVP PRN (15:50)
[2021-03-25] MEDS ORDERED: MORPHINE SULFATE 2 MG/ML SYRINGE IV PRN (15:50)
[2021-03-25] MEDS ORDERED: HALOPERIDOL LACTATE 5 MG/ML 1 ML VIAL IM PRN (15:50)
[2021-03-25] MEDS ORDERED: ACETAMINOPHEN SUPPOSITORY 650 MG SUPP RECTAL PRN (15:50)
[2021-03-25] MEDS ORDERED: GLYCOPYRROLATE 0.2 MG/ML 2 ML VIAL IVP PRN (15:50)
[2021-03-25] MEDS ORDERED: LORazepam 2 MG/ML INJ IV PRN (15:50)
[2021-03-25] MEDS ORDERED: HYOSCYAMINE ORAL DROPS 1.875 MG/15 ML BOTTLE PO PRN (15:51)
[2021-03-25] MEDS ORDERED: SCOPOLAMINE 1.5MG/72HR PATCH TRANSDERM SCH (16:00)
[2021-03-25] MEDS: MORPHINE SULFATE (100 MG/2 ML) 100 MG in SODIUM CHLORIDE 0.9% 100 ML IV SCH (16:29)
--- NOTE | 2021-03-25 18:11 | DS ---
DISCHARGE SUMMARY DATE OF SERVICE: 03/25/2021 She is currently NO CODE. DATA: Height 5 feet 4 inches, weight is 68 kg, BSA 1.73 m2, BMI 25.7 kg/m2. ALLERGIES: UNKNOWN. And her current hospital . The patient was admitted with COVID pneumonia. She has underlying acute hypoxemic respiratory failure. Final diagnosis at this time and disposition: She requested hospice program of [facility] and the patient's care was transferred to hospice with the agreement of the patient and her daughter for hospice program. Discharged from acute care. I did talk today to the hospice nurse, Gordon, and she had the order for hospice and to continue comfort care and discontinue all her medication. CURRENT DIAGNOSIS ON DISCHARGE TO HOSPICE: 1. Acute hypoxic respiratory failure on top of chronic. 2. She had high-flow oxygen between 12 and 15 and still gets episodic hypoxemia. 3. Chronic obstructive pulmonary disease with acute exacerbation. 4. Underlying probability of pulmonary fibrosis. 5. History of steroid dependence, admitted with COVID-19 pneumonia and bronchitis. 6. Diabetes mellitus, type 2, with hyperglycemia secondary to steroids that she has been taking, which was Decadron 6 mg IV twice a day. That was discontinued and replaced by Solu-Medrol by Pulmonary. 7. Atrial fibrillation with controlled ventricular response. Initially admitted with rapid ventricular response and subsequently become rate-controlled. 8. Initial elevation of troponin with underlying impaired systolic and diastolic dysfunction. 9. Severe debility. 10.Anxiety. CONSULTATIONS: 1. Pulmonary and Critical Care: Dr. Servin, Dr. Pedro and Dr. Jones. \. 2. Cardiology. All of patient's medication has been discontinued per the hospice program. She has been started on comfort care medication, including the and Ativan. HOSPITAL COURSE: The patient has been struggling since admission to the hospital with shortness of breath and she was started on high-flow oxygen and had treatment for COVID pneumonia remdesivir and subsequently she also had dexamethasone 6 mg IV q.12 hours. That was changed today to Solu-Medrol. However, patient did not improve and she become very short of breath, not feeling well, and she decided that she would like to have the hospice program for comfort care with the thought of and end of life. Subsequently the nursing staff called me on the phone and told me that the family wants hospice, and they will talk to her daughter as well, with the agreement we initiate hospice for the patient for her comfort. I did see her now at 4:30 and discussed with her and her daughter as well, with the expectation she will with the hospice program who will be taking care of her at this time. They placed the order for hospice and the patient was discharged from acute care to the hospice program. Expected prognosis is that she will under the hospice program. I spoke to the patient's daughter and to the patient. DIAN / LEON: [id number] /
[2021-03-26] MEDS: ATROPINE OPHTH SOLN 1% 5ML BTL SUBLINGUAL PRN ×3 (01:15→11:15)
[2021-03-26 08:54] VITALS: PULSE 60; RESP 6
[2021-03-26] MEDS: MORPHINE SULFATE (100 MG/2 ML) 100 MG in SODIUM CHLORIDE 0.9% 100 ML IV SCH (12:23)
== END 2021-03-26 17:49 | disposition expired | DRG 951 ==
LOC: 3SCARD 16:15
PROVIDERS: ADMIT Internal Medicine; ATTEND Internal Medicine
DX: Z51.5 Encounter for palliative care (principal); J12.82 Pneumonia due to coronavirus disease 2019; U07.1 COVID-19; J96.01 Acute respiratory failure with hypoxia; J44.1 Chronic obstructive pulmonary disease with (acute) exacerbation; E09.9 Drug or chemical induced diabetes mellitus without complications; T38.0X5S Adverse effect of glucocorticoids and synthetic analogues, sequela; I48.91 Unspecified atrial fibrillation